=== PATIENT | male | born 1940 ===

== ENCOUNTER 2016-12-22 07:00 | Day surgery (SDC) | payer MEDICARE, MEDICAID ==
[2015-08-22 07:31] VITALS: BMI 30.9
[2016-12-22] MEDS ORDERED: Albuterol 0.083% Inhal Sol (2.5 mg/3 mL) UD INH ONE ×2 (07:07→08:49)
[2016-12-22] MEDS ORDERED: Midazolam 2 MG/2 ML VIAL ONE (07:30)
[2016-12-22] MEDS ORDERED: Propofol 10 mg/ml Inj (20 ML) ONE (07:30)
[2016-12-22] MEDS ORDERED: Lidocaine 2% Jelly (Uro-Jet) ONE (07:50)
[2016-12-22] MEDS ORDERED: Lactated Ringer's 1,000 ML IV ONE ×2 (07:50)
[2016-12-22] MEDS ORDERED: Iohexol 240 (50 ml) ONE (07:50)
[2016-12-22] MEDS ORDERED: cefTRIAXone IV 1 gm in Dextros 50 ML IVPB ONE (07:50)
--- NOTE | 2016-12-22 08:57 | PCM.SURG1 ---
Surgeon's Initial Post Op Note - Surgeon's Notes Surgeon: yves cruz Production Leader: none Pre-Operative Diagnosis: hematuria Operative Findings: bph, retention, cystitis. urethral stricture. filling defect R mid ureter Post-Operative Diagnosis: same Operation Performed: cysto, bilat rtg pyelogram. bladder bx and fulg Specimen/Specimens Removed: urine. bladder bx Estimated Blood Loss: EBL {In ML}: 0 Blood Products Given: N/A Post-Op Condition: Good Date of Surgery/Procedure: 12/22/16 Time of Surgery/Procedure: 08:45
[2016-12-22 11:36] VITALS: RESP 18; TEMP 96.7; O2SAT 100
[2016-12-22 11:39] VITALS: BP 137/75; PULSE 67
--- NOTE | 2016-12-22 13:10 | RAD ---
PROCEDURE: Intraoperative Fluoroscopy. HISTORY: HEMATURIA FINDINGS: Fluoroscopic assistance was provided. 14.1 seconds of fluoroscopy time utilized during this procedure. Radiation dose = 1.63 mGy
--- NOTE | 2016-12-22 17:25 | RAD ---
HISTORY: HEMATURIA COMPARISON: No prior. FINDINGS: BOWEL: Film labeled ocean export account manager is submitted. Normal bowel gas pattern is identified. No masses or abnormal intra-abdominal calcifications are appreciated. BONES: No fracture. 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 OTHER FINDINGS: None. IMPRESSION: No active disease.
--- NOTE | 2016-12-27 06:24 | OP ---
PROCEDURE DATE: 12/22/2016 PREOPERATIVE DIAGNOSIS: Hematuria. POSTOPERATIVE DIAGNOSES: 1. Hematuria. 2. Benign prostatic hypertrophy. 3. Urinary retention. 4. Urethral stricture. 5. Cystitis. 6. Right ureteral filling defect. SURGEON: Dr. Jing Damon. DESCRIPTION OF PROCEDURE: The patient was placed in the lithotomy position, genitalia prepped and draped sterilely. Anesthesia was applied by the anesthesiologist with sedation. Perioperative antibiotics were administered. A 22-Chinese cystoscope sheath was introduced under direct vision. There was noted to be stricture in the mid bulb of the urethra. The ureteral catheter was inserted through the stricture. Dilation was performed with the pass of the cystoscope sheath up to the size 22-Chinese. The remainder of the urethra demonstrate no other stricture. The prostate and bladder were inspected with 30-degree and 70-degree lenses. FINDINGS: There was obstruction of the prostatic urethra. Prostatic urethra was approximately 4 cm at length and occlusive. There was no abnormal mucosa in the prostatic urethra. There was no bladder neck contraction. There was trilobe hypertrophy with a small middle lobe as well. There was moderate bladder tuberculation with mild soleal formation. There was no bladder tumor. There was no bladder stone. Bilateral retrograde ureteropyelogram was performed via cone-tip catheter into his ureteral orifice. The procedure was performed under fluoroscopy control. It was abnormal by the mucosa noted. This appear to be inflammatory. The bladder mucosa was biopsied using cold-cup biopsy forceps. Fulguration was performed with Ball electrode and electrocautery. Occlusive hip retrograde ureteropyelogram was performed. The iodinated contrast was instilled. The ureters and the kidneys were then clenched. There was no evidence of obstruction. There was no hydronephrosis. There was good drainage noted on push drainage. There was a persistent light ureteral filling defect approximately 1 cm at length x approximately 3 cm in width noted adjacent to the lumbar ureter. The bladder was then inspected with 70-degree lens and confirmed the above finding. Hemostasis was complete. The cystoscope and sheath were removed. Olivares catheter was inserted. Bladder drainage was clear. Rectal examination was performed. Prostate was supple and smooth, approximately 30-40 g in size, without fixation, induration, or nodularity. The residuals in the urine was approximately 500 mL. The residual urine within the bladder was approximately 500 mL. The patient tolerated the procedure without complication. Jing Damon MD cc: Jing Damon MD
== END 2016-12-22 12:53 | disposition home or self-care (01) ==
LOC: C.SDS 07:00
PROVIDERS: ATTEND Urology
DX: N30.21 Other chronic cystitis with hematuria (principal); N40.1 Benign prostatic hyperplasia with lower urinary tract symptoms
CPT/HCPCS: 52214; 74000; 76000; 87086; 88305; 94640; C1758; J0696; J7120; Q9966

== ENCOUNTER 2017-12-11 11:22 | Inpatient (IN) | payer MEDICARE, MEDICAID ==
[2017-12-11 11:41] VITALS: BMI 26.9
[2017-12-11] MEDS ORDERED: Albuterol-Ipratrop 3 mg / 0.5 (3 ml) UD IH STA (12:16)
--- NOTE | 2017-12-11 12:17 | C.PDOC ---
History Of Present Illness 76 year old male with PMHx of CHF, GERD, COPD, BPH transfer from [facility] at [facility] for evaluation of intermittent lower abdominal pain, urinary retention developed for past few days. At present time, pt noted tachypnic, SOB. Pt reports, "started after I stopped smoking 7 months ago". Otherwise, pt denies fever, chills, nausea, CP, palpitation, diaphoresis, vomiting, diarrhea, UTI sx. Pt is very poor historian hx of dementia. Time Seen by Provider: 12/11/17 11:24 Chief Complaint (Nursing): Male Genitourinary History Per: Patient, Other ([facility] records) Onset/Duration Of Symptoms: Days Current Symptoms Are (Timing): Still Present Associated Symptoms: Urinary Symptoms. denies: Fever, Chills, Nausea, Vomiting , Diarrhea Past Medical History Reviewed: Historical Data, Nursing Documentation, Vital Signs Vital Signs: Last Vital Signs Temp 98.4 F 12/13/17 15:57 Pulse 66 12/13/17 15:57 Resp 20 12/13/17 15:57 BP 107/71 12/13/17 15:57 Pulse Ox 95 12/13/17 15:57 - Medical History PMH: CHF (DIASTOLIC CHF), COPD, Diverticulitis, HTN, Peripheral Edema, Pneumonia (BRONCHOPNEUMONIA UNSPECIFIED ORGANISM(11/04/15)) Denies: Chronic Kidney Disease Surgical History: No Surg Hx Family History: States: No Known Family Hx - Social History Hx Tobacco Use: Yes (stopped 7 months ago ) Hx Alcohol Use: No Hx Substance Use: No Review Of Systems Except As Marked, All Systems Reviewed And Found Negative. Constitutional: Negative for: Fever, Chills Cardiovascular: Negative for: Chest Pain, Palpitations Gastrointestinal: Positive for: Abdominal Pain (Lower abdomen ). Negative for: Nausea, Vomiting, Diarrhea Genitourinary: Positive for: Hematuria, Other (Urinary retention ). Negative for: Dysuria, Frequency Physical Exam - Physical Exam Appears: Well, Non-toxic, Other (mild resp. distress) Skin: Normal Color, Warm, Dry, No Rash, No Ecchymosis Head: Normacephalic Eye(s): bilateral: PERRL Nose: No Flaring, No Discharge Oral Mucosa: Moist, No Drooling Throat: No Drooling Neck: Trachea Midline, Supple Chest: Symmetrical Cardiovascular: Rhythm Regular, No Murmur, No JVD Respiratory: Decreased Breath Sounds (slight bibasilar, BS equal B/L), Accessory Muscle Use (abd), Wheezing (Bibasilar respisratory wheezing ) Gastrointestinal/Abdominal: Soft, Tenderness (mild suprapubic), No Distention, No Guarding, No Rebound Back: No CVA Tenderness Extremity: Normal ROM, No Pedal Edema Neurological/Psych: Oriented x3, Normal Speech ED Course And Treatment - Laboratory Results Result Diagrams: 12/11/17 12:28 12/11/17 12:28 Lab Interpretation: Abnormal ECG Interpretation: Normal Interpretation Of ECG: SR@68/min, NAD, no acute T wave or ST-T changes O2 Sat by Pulse Oximetry: 95 (Nasal Cannula ) Pulse Ox Interpretation: Normal (As per patient's condition) - Radiology CXR: Interpreted by Me, Read By Radiologist CXR Interpretation: Yes: No Acute Disease Progress Note: As per RN, bladder scan 550ml residual urine. Olivares cath ordered. Blood owrk review, abnormal chemistry, dehydration. Troponin I, BNP _ normal study. CXR, EKG- no acute changes compare to previous study. case discussed with who evaluated pt at bedside. CT w/o IV contrast recommend with Olivares insertion, admisson. Pt received tx for COPD, reports mild improvement n SOB. UA (+) UTI. Abx initaited empirically, cx- pending. On re-eval, pt remained stable, afebrile, hemodynamically stable. Case discussed with and admission arranged. Disposition - Disposition Disposition: HOSPITALIZED Disposition Time: 13:16 Condition: STABLE - Clinical Impression Clinical Impression: Hematuria, Urinary retention, UTI (urinary tract infection), COPD (chronic obstructive pulmonary disease) - PA / HELPDESK TECHNICIAN / Resident Statement MD/DO has reviewed & agrees with the documentation as recorded. - Scribe Statement The provider has reviewed the documentation as recorded by the Nancyibsarah Rosario All medical record entries made by the Nancyibsarah were at my direction and personally dictated by me. I have reviewed the chart and agree that the record accurately reflects my personal performance of the history, physical exam, medical decision making, and the department course for this patient. I have also personally directed, reviewed, and agree with the discharge instructions and disposition.
[2017-12-11 12:32] LABS: BASO % 0.6 % (0.0-2.0); EOS # 0.3 K/uL (0.0-0.7); EOS % 3.6 % (0.0-4.0); HEMOGLOBIN 13.2 g/dL (12.0-18.0); LYMPH # 2.9 K/uL (1.0-4.3); MEAN CELL VOLUME 83.3 fL (80.0-94.0); MEAN CORPUSCULAR HEMOGLOBIN 25.9 pg (27.0-31.0); MEAN CORPUSCULAR HGB CONC 31.1 g/dL (33.0-37.0); MEAN PLATELET VOLUME 7.2 fL (7.2-11.7); MONO # 0.7 K/uL (0.0-0.8); MONO % 9.7 % (0.0-10.0); NEUT # 3.4 K/uL (1.8-7.0); NEUT % 46.1 % (50.0-75.0); NRBC % 0.1 % (0.0-2.0); RBC 5.1 Mil/uL (4.40-5.90); RED CELL DISTRIBUTION WIDTH 16.5 % (11.5-14.5); WHITE BLOOD COUNT 7.3 K/uL (4.8-10.8)
[2017-12-11 12:43] LABS: INR 1.1; PROTHROMBIN TIME 12.3 SECONDS (9.7-12.2)
[2017-12-11] MEDS ORDERED: Albuterol-Ipratrop 3 mg / 0.5 (3 ml) UD ONE ×2 (12:43→12:51)
--- NOTE | 2017-12-11 13:03 | RAD ---
Date of service: 12/11/2017 PROCEDURE: CHEST RADIOGRAPH, 1 VIEW HISTORY: SOB COMPARISON: None available. FINDINGS: LUNGS: The lungs are well inflated and clear. PLEURA: No pneumothorax or pleural fluid seen. CARDIOVASCULAR: Normal. OSSEOUS STRUCTURES: No significant abnormalities. VISUALIZED UPPER ABDOMEN: Normal. OTHER FINDINGS: None. IMPRESSION: No active pulmonary disease.
[2017-12-11 13:05] LABS: SQUAMOUS EPITHIAL 17 /hpf (0-5); URINE AMORPHOUS SEDIMENT FEW /ul (<OCC); URINE BACTERIA MOD (<OCC); URINE BILIRUBIN NEGATIVE (NEGATIVE); URINE BLOOD 2+ (NEGATIVE); URINE CLARITY Turbid (Clear); URINE COLOR Yellow (YELLOW); URINE GLUCOSE (UA) NORMAL (Normal); URINE LEUKOCYTE ESTERASE 1+ Leu/uL (Negative); URINE PROTEIN 2+ mg/dL (NEGATIVE)
[2017-12-11 13:06] LABS: B-TYPE NATRIURETIC PEPTIDE 308 pg/mL (0-900)
[2017-12-11 13:08] LABS: ALB/GLOB RATIO 0.9 (1.0-2.1); ALBUMIN 3.7 g/dL (3.5-5.0); ALT/SGPT 19 U/L (21-72); AST/SGOT 30 U/L (17-59); BLOOD UREA NITROGEN 23 mg/dL (9-20); CALCIUM 8.7 mg/dl (8.6-10.4); GFR AFRICAN-AMERICAN > 60; GFR NON-AFRICAN AMERICAN > 60
[2017-12-11] MEDS ORDERED: Sodium Chloride 0.9% 1,000 ML IV ONE (13:15)
[2017-12-11] MEDS ORDERED: Sodium Chloride 0.9% 1,000 ML ONE (13:26)
[2017-12-11] MEDS ORDERED: cefTRIAXone IV 1 gm in Dextros 50 ML IVPB ONE (13:27)
[2017-12-11] MEDS ORDERED: Iohexol 350mg/ml 100 ML ONE (14:38)
--- NOTE | 2017-12-11 17:39 | CT ---
Date of service: 12/11/2017 PROCEDURE: CT Abdomen and Pelvis with and without intravenous contrast HISTORY: urinary retention, hematuria COMPARISON: None. TECHNIQUE: Axial images of the abdomen were obtained in the pre contrast, portal venous and delayed phases of enhancement. Coronal and sagittal reformats were generated. Contrast dose: 100 mL Visipaque 320 Radiation dose: Total exam DLP = 2538.87 mGy-cm. This CT exam was performed using one or more of the following dose reduction techniques: Automated exposure control, adjustment of the mA and/or kV according to patient size, and/or use of iterative reconstruction technique. FINDINGS: LOWER THORAX: Right lower lobe infiltrate. Minimal left lower lobe subsegmental atelectasis. LIVER: Unremarkable. No gross lesion or ductal dilatation. GALLBLADDER AND BILE DUCTS: Unremarkable. PANCREAS: Unremarkable. No gross lesion or ductal dilatation. SPLEEN: Unremarkable. ADRENALS: Unremarkable. No mass. KIDNEYS AND URETERS: Pedunculated left upper pole renal cortical cyst, 4.1 cm diameter. Minimal curvilinear mural calcification associated with this cyst. Right lower pole cortical cyst, 12 mm. No renal calculus. No hydronephrosis. Urographic phase images demonstrate no filling defect within the collecting system. The the pelvicaliceal system is in normal in morphology. The ureters are unremarkable in appearance. VASCULATURE: Unremarkable. No aortic aneurysm. BOWEL: Diverticulosis of the cecum/ascending colon. No evidence of diverticulitis. No bowel obstruction. APPENDIX: Normal appendix. PERITONEUM: Unremarkable. No free fluid. No free air. LYMPH NODES: Unremarkable. No enlarged lymph nodes. BLADDER: Large diverticulum arising from the left superior bladder. This contains air and fluid as well as calcification and debris. The bladder wall is grossly irregularly thickened. A Olivares catheter is seen within the bladder lumen. There are multiple fluid density structures about the bladder particularly along the right side of the bladder, possibly diverticulae. There is infiltration of the perivesical fat suggesting possible cystitis. Irregular thickening of the bladder wall concerning for neoplasm. REPRODUCTIVE: Unremarkable prostate BONES: Mild compression deformity of the L1 vertebral body, age indeterminate. OTHER FINDINGS: None. IMPRESSION: Large left-sided bladder diverticulum with fluid, gas, calcification and debris. Irregular marked thickening of bladder wall with multiple low-density structures along the right lateral aspect of the wall of uncertain significance. Possible diverticulae. The irregular extensive mural thickening is suspicious for bladder neoplasm. Infiltration of perivesical fat raises concern for cystitis. Right lower lobe infiltrate noted. Concerning for pneumonia. Additional minor findings as above.
[2017-12-11] MEDS: Zinc Oxide Topical 30 gm Tube TOP SCH (19:12)
--- NOTE | 2017-12-11 19:30 | CP.PCM.HP ---
Past Patient History - Past Medical History & Family History Past Medical History?: Yes - Past Social History Smoking Status: Former Smoker - CARDIAC Hx Congestive Heart Failure: Yes (DIASTOLIC CHF) Hx Hypertension: Yes Hx Peripheral Edema: Yes - PULMONARY Hx Chronic Obstructive Pulmonary Disease (COPD): Yes Hx Pneumonia: Yes (BRONCHOPNEUMONIA UNSPECIFIED ORGANISM(11/04/15)) - NEUROLOGICAL Hx Neurological Disorder: Yes Other/Comment: CERVICAL CORD COMPRESSION. CERVICAL STENOSIS. NEUROPATHY - HEENT Hx HEENT Problems: No - RENAL Hx Chronic Kidney Disease: No - ENDOCRINE/METABOLIC Hx Endocrine Disorders: No - HEMATOLOGICAL/ONCOLOGICAL Hx Blood Disorders: No - INTEGUMENTARY Hx Dermatological Problems: Yes Other/Comment: LEFT LOWER EXTREMITY CELLULITIS - MUSCULOSKELETAL/RHEUMATOLOGICAL Hx Musculoskeletal Disorders: Yes Hx Back Pain: Yes Hx Falls: Yes Hx Osteoarthritis: Yes Other/Comment: HX: CERVICAL CORD COMPRESSION. HX: CERVICAL STENOSIS. 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, THORACIC REGION - GASTROINTESTINAL Hx Diverticulitis: Yes - GENITOURINARY/GYNECOLOGICAL Hx Genitourinary Disorders: Yes Hx Bladder Stone: Yes Hx Hematuria: Yes Hx Urinary Tract Infection: Yes - PSYCHIATRIC Hx Substance Use: No - SURGICAL HISTORY Hx Surgeries: No Other/Comment: HX: FLEXIBLE CYSTOSCOPY(08/28/15) - ANESTHESIA Hx Anesthesia: Yes Hx Anesthesia Reactions: No Meds Allergies/Adverse Reactions: Allergies Allergy/AdvReac Type Severity Reaction Status Date / Time No Known Allergies Allergy Verified 08/22/15 07:30 Physical Exam - Constitutional Appears: Well - Head Exam Head Exam: ATRAUMATIC, NORMAL INSPECTION, NORMOCEPHALIC - Eye Exam Eye Exam: EOMI, Normal appearance, PERRL Pupil Exam: NORMAL ACCOMODATION, PERRL - ENT Exam ENT Exam: Mucous Membranes Moist, Normal Exam - Neck Exam Neck exam: Positive for: Normal Inspection - Respiratory Exam Respiratory Exam: Decreased Breath Sounds - Cardiovascular Exam Cardiovascular Exam: REGULAR RHYTHM, +S1, +S2 - GI/Abdominal Exam GI & Abdominal Exam: Diminished Bowel Sounds, Soft - Rectal Exam Rectal Exam: Deferred Results - Vital Signs Recent Vital Signs: Last Vital Signs Temp 98.0 F 12/11/17 16:23 Pulse 72 12/11/17 16:23 Resp 20 12/11/17 16:23 BP 104/68 12/11/17 16:23 Pulse Ox 95 12/11/17 16:59 - Labs Result Diagrams: 12/11/17 12:28 12/11/17 12:28 Labs: Laboratory Results - last 24 hr 12/11/17 12/11/17 12/11/17 12:28 12:28 12:28 WBC 7.3 RBC 5.10 Hgb 13.2 Hct 42.5 MCV 83.3 MCH 25.9 L MCHC 31.1 L RDW 16.5 H Plt Count 245 MPV 7.2 Neut % (Auto) 46.1 L Lymph % (Auto) 40.0 [place] % (Auto) 9.7 Eos % (Auto) 3.6 Baso % (Auto) 0.6 Neut # (Auto) 3.4 Lymph # (Auto) 2.9 [place] # (Auto) 0.7 Eos # (Auto) 0.3 Baso # (Auto) 0.0 PT 12.3 H INR 1.1 APTT 35 H Sodium 137 Potassium 5.0 Chloride 89 L Carbon Dioxide 38 H Anion Gap 15 BUN 23 H Creatinine 0.7 L Est GFR ( Amer) > 60 Est GFR (Non-Af Amer) > 60 Random Glucose 129 H Calcium 8.7 Total Bilirubin 0.7 AST 30 ALT 19 L Alkaline Phosphatase 86 Troponin I < 0.0120 NT-Pro-B Natriuret Pep 308 Total Protein 8.0 Albumin 3.7 Globulin 4.3 H Albumin/Globulin Ratio 0.9 L Urine Color Urine Clarity Urine pH Ur Specific [place] Urine Protein Urine Glucose (UA) Urine Ketones Urine Blood Urine Nitrate Urine Bilirubin Urine Urobilinogen Ur Leukocyte Esterase Urine WBC (Auto) Urine RBC (Auto) Ur Squamous Epith Cells Amorphous Sediment Urine Bacteria 12/11/17 12:29 WBC RBC Hgb Hct MCV MCH MCHC RDW Plt Count MPV Neut % (Auto) Lymph % (Auto) [place] % (Auto) Eos % (Auto) Baso % (Auto) Neut # (Auto) Lymph # (Auto) [place] # (Auto) Eos # (Auto) Baso # (Auto) PT INR APTT Sodium Potassium Chloride Carbon Dioxide Anion Gap BUN Creatinine Est GFR ( Amer) Est GFR (Non-Af Amer) Random Glucose Calcium Total Bilirubin AST ALT Alkaline Phosphatase Troponin I NT-Pro-B Natriuret Pep Total Protein Albumin Globulin Albumin/Globulin Ratio Urine Color Yellow Urine Clarity Turbid Urine pH 6.0 Ur Specific [place] 1.013 Urine Protein 2+ H Urine Glucose (UA) Normal Urine Ketones Negative Urine Blood 2+ H Urine Nitrate Negative Urine Bilirubin Negative Urine Urobilinogen 2.0 Ur Leukocyte Esterase 1+ H Urine WBC (Auto) 1204 H Urine RBC (Auto) 72 H Ur Squamous Epith Cells 17 H Amorphous Sediment Few H Urine Bacteria Mod H
[2017-12-11] MEDS: Albuterol-Ipratrop 3 mg / 0.5 (3 ml) UD INH SCH (20:48)
[2017-12-12] MEDS: Albuterol-Ipratrop 3 mg / 0.5 (3 ml) UD INH SCH ×4 (01:39→19:37)
[2017-12-12] MEDS: Metoprolol Succinate 50 mg XL Tab PO SCH (10:04)
[2017-12-12] MEDS: Potassium Chloride 10 mEq ER Tab PO SCH (10:04)
[2017-12-12] MEDS: Zinc Oxide Topical 30 gm Tube TOP SCH (10:05)
[2017-12-12] MEDS: Azithromycin 500 MG in Sodium Chloride 0.9% 250 ML IVPB SCH (10:06)
[2017-12-12] MEDS: Magnesium Hydroxide Susp 30 ml UD PO SCH (10:06)
--- NOTE | 2017-12-12 12:47 | CP.PCM.PN ---
Subjective - Date & Time of Evaluation Date of Evaluation: 12/12/17 Time of Evaluation: 07:40 - Subjective Subjective: clinically same Objective - Vital Signs/Intake and Output Vital Signs (last 24 hours): Temp Pulse Resp BP Pulse Ox 98.2 F 71 20 101/50 L 96 12/12/17 08:00 12/12/17 08:00 12/12/17 08:00 12/12/17 08:00 12/12/17 08:00 Intake and Output: 12/12/17 12/12/17 06:59 18:59 Intake Total 1300 Output Total 1000 300 Balance 300 -300 - Medications Medications: Current Medications Albuterol/Ipratropium (Duoneb 3 Mg/0.5 Mg (3 Ml) Ud) 3 ml INH RQ6 [facility] Last Admin: 12/12/17 07:55 Dose: 3 ml Aspirin (Aspirin Chewable) 81 mg PO DAILY [facility] Last Admin: 12/12/17 10:04 Dose: 81 mg Baclofen (Lioresal) 20 mg PO TID [facility] Last Admin: 12/12/17 10:05 Dose: 20 mg Bisacodyl (Dulcolax) 10 mg RC DAILY PRN PRN Reason: Constipation Diphenhydramine HCl (Benadryl) 25 mg PO Q8 [facility] Last Admin: 12/12/17 05:49 Dose: Not Given Famotidine (Pepcid) 20 mg PO BID [facility] Last Admin: 12/12/17 10:05 Dose: 20 mg Furosemide (Lasix) 40 mg IVP DAILY [facility] Last Admin: 12/12/17 10:05 Dose: Not Given Ceftriaxone Sodium 1 gm/ (Sodium Chloride) 100 mls @ 100 mls/hr IVPB DAILY [facility] PRN Reason: Protocol Last Admin: 12/12/17 10:06 Dose: 100 mls/hr Azithromycin 500 mg/ Sodium (Chloride) 250 mls @ 250 mls/hr IVPB DAILY [facility] PRN Reason: Protocol Last Admin: 12/12/17 10:06 Dose: 250 mls/hr Magnesium Hydroxide (Milk Of Magnesia) 30 ml PO DAILY [facility] Last Admin: 12/12/17 10:06 Dose: Not Given Metoprolol Succinate (Toprol Xl) 50 mg PO DAILY [facility] Last Admin: 12/12/17 10:04 Dose: 50 mg Petrolatum (Desitin Original) 0 gm TOP DAILY [facility] Last Admin: 12/12/17 10:05 Dose: 1 applic Potassium Chloride (Klor-Con 10) 10 meq PO DAILY [facility] Last Admin: 12/12/17 10:04 Dose: 10 meq - Labs Labs: 12/11/17 12:28 12/11/17 12:28 PT 12.3 SECONDS (9.7-12.2) H 12/11/17 12:28 INR 1.1 12/11/17 12:28 APTT 35 SECONDS (21-34) H 12/11/17 12:28 - Constitutional Appears: Well - Head Exam Head Exam: ATRAUMATIC, NORMAL INSPECTION, NORMOCEPHALIC - Eye Exam Eye Exam: EOMI, Normal appearance, PERRL Pupil Exam: NORMAL ACCOMODATION, PERRL - ENT Exam ENT Exam: Mucous Membranes Moist, Normal Exam - Neck Exam Neck Exam: Full ROM, Normal Inspection. absent: Lymphadenopathy - Respiratory Exam Respiratory Exam: Decreased Breath Sounds - Cardiovascular Exam Cardiovascular Exam: REGULAR RHYTHM, +S1, +S2 - GI/Abdominal Exam GI & Abdominal Exam: Soft, Diminished Bowel Sounds - Rectal Exam Rectal Exam: Deferred
--- NOTE | 2017-12-12 15:07 | CP.PCM.CON ---
History of Present Illness - History of Present Illness History of Present Illness: CHART REVIEWED, PT SEEN AND EXAMINED. 76 YO HISP MALE WITH A HX COPD, CHF, GERD, BPH, HTN, TRANS FROM [place] 12/11/17 WITH INCREASED MILD SOB AT REST X FEW DAYS, WITH LOWER ABDOM DISCOMFORT., NO N/V. NO COUGH., NO CP. QUIT SMOKING FEW MONTHS AGO. Review of Systems - Review of Systems All systems: reviewed and no additional remarkable complaints except - Constitutional Constitutional: Weakness - EENT Eyes: absent: Change in Vision Ears: absent: Dizziness Nose/Mouth/Throat: absent: Nasal Congestion - Cardiovascular Cardiovascular: absent: Chest Pain - Respiratory Respiratory: Dyspnea on Exertion. absent: Excessive Mucous Production - Gastrointestinal Gastrointestinal: absent: Nausea, Vomiting - Genitourinary Genitourinary: Change in Urinary Stream, Difficulty Urinating - Integumentary Integumentary: absent: Rash - Neurological Neurological: absent: Syncope - Psychiatric Psychiatric: absent: Anxiety - Endocrine Endocrine: absent: Palpitations - Hematologic/Lymphatic Hematologic: absent: Easy Bruising Past Patient History - Past Medical History & Family History Past Medical History?: Yes Past Family History: Reviewed and not pertinent - Past Social History Smoking Status: Former Smoker Chewing Tobacco Use: No Cigar Use: No Alcohol: None Drugs: Denies - CARDIAC Hx Congestive Heart Failure: Yes (DIASTOLIC CHF) Hx Hypertension: Yes Hx Peripheral Edema: Yes - PULMONARY Hx Chronic Obstructive Pulmonary Disease (COPD): Yes Hx Pneumonia: Yes (BRONCHOPNEUMONIA UNSPECIFIED ORGANISM(11/04/15)) - NEUROLOGICAL Hx Neurological Disorder: Yes Other/Comment: CERVICAL CORD COMPRESSION. CERVICAL STENOSIS. NEUROPATHY - HEENT Hx HEENT Problems: No - RENAL Hx Chronic Kidney Disease: No - ENDOCRINE/METABOLIC Hx Endocrine Disorders: No - HEMATOLOGICAL/ONCOLOGICAL Hx Blood Disorders: No - INTEGUMENTARY Hx Dermatological Problems: Yes Other/Comment: LEFT LOWER EXTREMITY CELLULITIS - MUSCULOSKELETAL/RHEUMATOLOGICAL Hx Musculoskeletal Disorders: Yes Hx Back Pain: Yes Hx Falls: Yes Hx Osteoarthritis: Yes Other/Comment: HX: CERVICAL CORD COMPRESSION. HX: CERVICAL STENOSIS. 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, THORACIC REGION - GASTROINTESTINAL Hx Diverticulitis: Yes - GENITOURINARY/GYNECOLOGICAL Hx Genitourinary Disorders: Yes Hx Bladder Stone: Yes Hx Hematuria: Yes Hx Urinary Tract Infection: Yes - PSYCHIATRIC Hx Substance Use: No - SURGICAL HISTORY Hx Surgeries: No Other/Comment: HX: FLEXIBLE CYSTOSCOPY(08/28/15) - ANESTHESIA Hx Anesthesia: Yes Hx Anesthesia Reactions: No Meds Allergies/Adverse Reactions: Allergies Allergy/AdvReac Type Severity Reaction Status Date / Time No Known Allergies Allergy Verified 08/22/15 07:30 - Medications Medications: Current Medications Albuterol/Ipratropium (Duoneb 3 Mg/0.5 Mg (3 Ml) Ud) 3 ml INH RQ6 [facility] Last Admin: 12/12/17 13:11 Dose: Not Given Aspirin (Aspirin Chewable) 81 mg PO DAILY [facility] Last Admin: 12/12/17 10:04 Dose: 81 mg Baclofen (Lioresal) 20 mg PO TID [facility] Last Admin: 12/12/17 13:18 Dose: Not Given Bisacodyl (Dulcolax) 10 mg RC DAILY PRN PRN Reason: Constipation Diphenhydramine HCl (Benadryl) 25 mg PO Q8 [facility] Last Admin: 12/12/17 13:18 Dose: 25 mg Famotidine (Pepcid) 20 mg PO BID [facility] Last Admin: 12/12/17 10:05 Dose: 20 mg Furosemide (Lasix) 40 mg IVP DAILY [facility] Last Admin: 12/12/17 10:05 Dose: Not Given Ceftriaxone Sodium 1 gm/ (Sodium Chloride) 100 mls @ 100 mls/hr IVPB DAILY [facility] PRN Reason: Protocol Last Admin: 12/12/17 10:06 Dose: 100 mls/hr Azithromycin 500 mg/ Sodium (Chloride) 250 mls @ 250 mls/hr IVPB DAILY [facility] PRN Reason: Protocol Last Admin: 12/12/17 10:06 Dose: 250 mls/hr Magnesium Hydroxide (Milk Of Magnesia) 30 ml PO DAILY [facility] Last Admin: 12/12/17 10:06 Dose: Not Given Metoprolol Succinate (Toprol Xl) 50 mg PO DAILY [facility] Last Admin: 12/12/17 10:04 Dose: 50 mg Petrolatum (Desitin Original) 0 gm TOP DAILY [facility] Last Admin: 12/12/17 10:05 Dose: 1 applic Potassium Chloride (Klor-Con 10) 10 meq PO DAILY [facility] Last Admin: 12/12/17 10:04 Dose: 10 meq Physical Exam - Constitutional Appears: No Acute Distress, Chronically Ill - Head Exam Head Exam: ATRAUMATIC, NORMOCEPHALIC - Eye Exam Eye Exam: EOMI, Normal appearance - ENT Exam ENT Exam: Mucous Membranes Moist - Neck Exam Neck exam: Positive for: Normal Inspection - Respiratory Exam Respiratory Exam: Decreased Breath Sounds. absent: Wheezes, Respiratory Distress - Cardiovascular Exam Cardiovascular Exam: RRR, +S1, +S2 - GI/Abdominal Exam GI & Abdominal Exam: Soft. absent: Tenderness - Rectal Exam Rectal Exam: Deferred - Extremities Exam Extremities exam: Negative for: calf tenderness Additional comments: LE CHRONIC CHANGES BILAT. - Back Exam Back exam: absent: CVA tenderness (L), CVA tenderness (R) - Neurological Exam Neurological exam: Alert, CN II-XII Intact, Oriented x3 - Psychiatric Exam Psychiatric exam: Normal Mood Results - Vital Signs Recent Vital Signs: Last Vital Signs Temp 98.2 F 12/12/17 08:00 Pulse 71 12/12/17 08:00 Resp 20 12/12/17 08:00 BP 101/50 L 12/12/17 08:00 Pulse Ox 96 12/12/17 08:00 - Labs Result Diagrams: 12/11/17 12:28 12/11/17 12:28 Assessment & Plan (1) Hypertension Status: Acute (2) Congestive heart failure (CHF) Status: Acute (3) GERD (gastroesophageal reflux disease) Status: Acute (4) BPH (benign prostatic hyperplasia) Status: Acute (5) Pneumonia Status: Acute (6) COPD (chronic obstructive pulmonary disease) Status: Acute (7) UTI (urinary tract infection) Status: Acute (8) Urinary retention Status: Acute - Assessment and Plan (Free Text) Assessment: 76 YO MALE WITH A HX MULT MED PROBS ADM WITH URINARY RETENTION, MILD DYSPNEA, COPD EXAC, ?CHF, FOR CARDIO EVAL. CXR REVIEWED. CONT PULM TOILET., NEB BD., MONITOR O2 SAT. CT ABD REVIEWED. +RLL PNA NOTED, CONT AB PENDING CULT. EVAL IN PROGRESS ?BLADDER LESION NOTED. +ALMANZAR IN PLACE. GI/DVT PROPHYLAXIS., PFT'S WHEN STABLE. PROG GUARDED., DISCUSSED WITH STAFF AT LENGTH.
[2017-12-13] MEDS: Albuterol-Ipratrop 3 mg / 0.5 (3 ml) UD INH SCH ×4 (01:46→21:15)
--- NOTE | 2017-12-13 04:59 | CON ---
Copied To: Jing Damon MD Attending MD: Jing Damon MD DATE: 12/12/2017 UROLOGY CONSULTATION Urology consultation is requested by Dr. Faustino Holt. Urology consultation is filled by Dr. Jing Damon. REASON FOR CONSULTATION: History of hematuria. HISTORY OF PRESENT ILLNESS: The patient is a 76-year-old male with hematuria. The patient is in otherwise fair health. The patient was previously hospitalized at [facility] last year and thereafter at [facility]. The patient was found to have cystitis on previous cystoscopy. He also was found to have prostatic hypertrophy. He also was found to have a filling defect within his right ureter. The patient presented to the emergency room. The patient reports that he voids with fair urinary stream and good control. He was found to have retention, and a Olivares catheter was inserted during the visit to the ER. The patient was also found to have urinary tract infection, see attached lab reports. The patient reports no recent hematuria. He also has a history of bladder diverticulum. He has no history of urolithiasis. There has been no recent fever or rigors. The patient reports that he voids with fair urinary stream. He has urinary frequency. The patient has had no recent fever or rigors. The patient has fair appetite. The patient reports that he has received physical therapy. He has weakness and has not been able to walk. The patient also has history of CHF. The patient has history of COPD. The patient has history of elevated PSA. PAST MEDICAL HISTORY: Includes hypertension. PAST SURGICAL HISTORY: Includes history of cervical laminectomy. PHYSICAL EXAMINATION: GENERAL: The patient is a well-developed, well-nourished elderly male, appearing his stated age. The patient is oriented to person, place, and hospital. ABDOMEN: Soft, nontender, nondistended. No mass or organomegaly. BACK: No CVA tenderness. GENITALIA: Without inflammation. The urine is clear via the Olivares catheter. The urinalysis reveals pyuria and microhematuria. IMPRESSION: A 76-year-old male with history of a filling defect in the right ureter. History of cystitis. Now with incomplete emptying. Possible urinary retention. Possible urinary tract infection. RECOMMENDATIONS AND PLAN: Indwelling catheter. Trial of voiding to follow. Tamsulosin. Please obtain serum PSA. Antibiotic therapy. Trial of voiding to follow. Possible cystoscopy and retrograde pyelogram. Further therapy to follow according to the patient's clinical course. Thank you for recommending the patient for Urology consultation. [place] MD Nelson cc: Faustino Holt MD
[2017-12-13] MEDS: Magnesium Hydroxide Susp 30 ml UD PO SCH (09:57)
[2017-12-13] MEDS: Potassium Chloride 10 mEq ER Tab PO SCH (09:58)
[2017-12-13] MEDS: Metoprolol Succinate 50 mg XL Tab PO SCH (09:58)
[2017-12-13] MEDS: Zinc Oxide Topical 30 gm Tube TOP SCH (10:00)
[2017-12-13] MEDS: Azithromycin 500 MG in Sodium Chloride 0.9% 250 ML IVPB SCH (11:01)
--- NOTE | 2017-12-13 13:18 | CP.PCM.PN ---
Subjective - Date & Time of Evaluation Date of Evaluation: 12/13/17 Time of Evaluation: 13:15 - Subjective Subjective: PT ALERT, NO SOB. OCC COUGH NO SPUTUM. ROS ; OTHERWISE NEG. Objective - Vital Signs/Intake and Output Vital Signs (last 24 hours): Temp Pulse Resp BP Pulse Ox 97.0 F L 62 20 127/69 95 12/13/17 08:00 12/13/17 08:00 12/13/17 08:00 12/13/17 09:57 12/13/17 08:00 Intake and Output: 12/13/17 12/13/17 06:59 18:59 Output Total 400 Balance -400 - Medications Medications: Current Medications Albuterol/Ipratropium (Duoneb 3 Mg/0.5 Mg (3 Ml) Ud) 3 ml INH RQ6 [facility] Last Admin: 12/13/17 07:40 Dose: Not Given Aspirin (Aspirin Chewable) 81 mg PO DAILY [facility] Last Admin: 12/13/17 10:10 Dose: Not Given Baclofen (Lioresal) 20 mg PO TID [facility] Last Admin: 12/13/17 09:59 Dose: 20 mg Bisacodyl (Dulcolax) 10 mg RC DAILY PRN PRN Reason: Constipation Diphenhydramine HCl (Benadryl) 25 mg PO Q8 [facility] Last Admin: 12/13/17 05:44 Dose: Not Given Famotidine (Pepcid) 20 mg PO BID [facility] Last Admin: 12/13/17 09:59 Dose: 20 mg Furosemide (Lasix) 40 mg IVP DAILY [facility] Last Admin: 12/13/17 09:57 Dose: 40 mg Ceftriaxone Sodium 1 gm/ (Sodium Chloride) 100 mls @ 100 mls/hr IVPB DAILY [facility] PRN Reason: Protocol Last Admin: 12/13/17 10:01 Dose: 100 mls/hr Azithromycin 500 mg/ Sodium (Chloride) 250 mls @ 250 mls/hr IVPB DAILY [facility] PRN Reason: Protocol Last Admin: 12/13/17 11:01 Dose: 250 mls/hr Magnesium Hydroxide (Milk Of Magnesia) 30 ml PO DAILY [facility] Last Admin: 12/13/17 09:57 Dose: 30 ml Metoprolol Succinate (Toprol Xl) 50 mg PO DAILY [facility] Last Admin: 12/13/17 09:58 Dose: 50 mg Petrolatum (Desitin Original) 0 gm TOP DAILY [facility] Last Admin: 12/13/17 10:00 Dose: 1 applic Potassium Chloride (Klor-Con 10) 10 meq PO DAILY [facility] Last Admin: 12/13/17 09:58 Dose: 10 meq - Labs Labs: 12/11/17 12:28 12/11/17 12:28 PT 12.3 SECONDS (9.7-12.2) H 12/11/17 12:28 INR 1.1 12/11/17 12:28 APTT 35 SECONDS (21-34) H 12/11/17 12:28 - Constitutional Appears: No Acute Distress, Chronically Ill - Head Exam Head Exam: ATRAUMATIC, NORMOCEPHALIC - Eye Exam Eye Exam: EOMI, Normal appearance - ENT Exam ENT Exam: Mucous Membranes Moist - Neck Exam Neck Exam: Normal Inspection - Respiratory Exam Respiratory Exam: Decreased Breath Sounds. absent: Accessory Muscle Use, Wheezes, Respiratory Distress - Cardiovascular Exam Cardiovascular Exam: RRR, +S1, +S2 - GI/Abdominal Exam GI & Abdominal Exam: Soft. absent: Tenderness - Rectal Exam Rectal Exam: Deferred - Extremities Exam Extremities Exam: absent: Joint Swelling, Pedal Edema - Back Exam Back Exam: absent: rash noted - Neurological Exam Neurological Exam: Alert, Awake, CN II-XII Intact, Oriented x3 - Psychiatric Exam Psychiatric exam: Normal Mood Assessment and Plan (1) Hypertension Status: Acute (2) Congestive heart failure (CHF) Status: Acute (3) GERD (gastroesophageal reflux disease) Status: Acute (4) BPH (benign prostatic hyperplasia) Status: Acute (5) Pneumonia Status: Acute (6) COPD (chronic obstructive pulmonary disease) Status: Acute (7) UTI (urinary tract infection) Status: Acute (8) Urinary retention Status: Acute - Assessment and Plan (Free Text) Assessment: RESP STATUS COMFORTABLE AT REST, CONT EMPIRIC AB. CONT PULM TOILET. CXR REVIEWED. W/U IN PROGRESS. DISCUSSED WITH STAFF.
--- NOTE | 2017-12-13 13:26 | CP.PCM.PN ---
Subjective - Date & Time of Evaluation Date of Evaluation: 12/13/17 Time of Evaluation: 07:40 - Subjective Subjective: clinically same Objective - Vital Signs/Intake and Output Vital Signs (last 24 hours): Temp Pulse Resp BP Pulse Ox 97.0 F L 62 20 127/69 95 12/13/17 08:00 12/13/17 08:00 12/13/17 08:00 12/13/17 09:57 12/13/17 08:00 Intake and Output: 12/13/17 12/13/17 06:59 18:59 Output Total 400 Balance -400 - Medications Medications: Current Medications Albuterol/Ipratropium (Duoneb 3 Mg/0.5 Mg (3 Ml) Ud) 3 ml INH RQ6 [facility] Last Admin: 12/13/17 13:18 Dose: Not Given Aspirin (Aspirin Chewable) 81 mg PO DAILY [facility] Last Admin: 12/13/17 10:10 Dose: Not Given Baclofen (Lioresal) 20 mg PO TID [facility] Last Admin: 12/13/17 09:59 Dose: 20 mg Bisacodyl (Dulcolax) 10 mg RC DAILY PRN PRN Reason: Constipation Diphenhydramine HCl (Benadryl) 25 mg PO Q8 [facility] Last Admin: 12/13/17 05:44 Dose: Not Given Famotidine (Pepcid) 20 mg PO BID [facility] Last Admin: 12/13/17 09:59 Dose: 20 mg Furosemide (Lasix) 40 mg IVP DAILY [facility] Last Admin: 12/13/17 09:57 Dose: 40 mg Ceftriaxone Sodium 1 gm/ (Sodium Chloride) 100 mls @ 100 mls/hr IVPB DAILY [facility] PRN Reason: Protocol Last Admin: 12/13/17 10:01 Dose: 100 mls/hr Azithromycin 500 mg/ Sodium (Chloride) 250 mls @ 250 mls/hr IVPB DAILY [facility] PRN Reason: Protocol Last Admin: 12/13/17 11:01 Dose: 250 mls/hr Magnesium Hydroxide (Milk Of Magnesia) 30 ml PO DAILY [facility] Last Admin: 12/13/17 09:57 Dose: 30 ml Metoprolol Succinate (Toprol Xl) 50 mg PO DAILY [facility] Last Admin: 12/13/17 09:58 Dose: 50 mg Petrolatum (Desitin Original) 0 gm TOP DAILY [facility] Last Admin: 12/13/17 10:00 Dose: 1 applic Potassium Chloride (Klor-Con 10) 10 meq PO DAILY [facility] Last Admin: 12/13/17 09:58 Dose: 10 meq - Labs Labs: 12/11/17 12:28 12/11/17 12:28 PT 12.3 SECONDS (9.7-12.2) H 12/11/17 12:28 INR 1.1 12/11/17 12:28 APTT 35 SECONDS (21-34) H 12/11/17 12:28 - Constitutional Appears: Well - Head Exam Head Exam: ATRAUMATIC, NORMAL INSPECTION, NORMOCEPHALIC - Eye Exam Eye Exam: EOMI, Normal appearance, PERRL Pupil Exam: NORMAL ACCOMODATION, PERRL - ENT Exam ENT Exam: Mucous Membranes Moist, Normal Exam - Neck Exam Neck Exam: Full ROM, Normal Inspection. absent: Lymphadenopathy - Respiratory Exam Respiratory Exam: Decreased Breath Sounds - Cardiovascular Exam Cardiovascular Exam: REGULAR RHYTHM, +S1, +S2 - GI/Abdominal Exam GI & Abdominal Exam: Soft, Diminished Bowel Sounds - Rectal Exam Rectal Exam: Deferred
[2017-12-14] MEDS: Albuterol-Ipratrop 3 mg / 0.5 (3 ml) UD INH SCH ×4 (02:56→19:42)
--- NOTE | 2017-12-14 09:09 | CP.PCM.PN ---
Subjective - Date & Time of Evaluation Date of Evaluation: 12/14/17 Time of Evaluation: 09:07 - Subjective Subjective: PT ALERT, FEELS BETTER., LESS COUGH. ROS; OTHERWISE NEG. Objective - Vital Signs/Intake and Output Vital Signs (last 24 hours): Temp Pulse Resp BP Pulse Ox 97.6 F 80 20 111/69 96 12/14/17 08:10 12/14/17 08:10 12/14/17 08:10 12/14/17 08:10 12/14/17 08:10 Intake and Output: 12/14/17 12/14/17 06:59 18:59 Intake Total 400 Output Total 1800 Balance -1400 - Medications Medications: Current Medications Albuterol/Ipratropium (Duoneb 3 Mg/0.5 Mg (3 Ml) Ud) 3 ml INH RQ6 [facility] Last Admin: 12/14/17 08:46 Dose: 3 ml Aspirin (Aspirin Chewable) 81 mg PO DAILY [facility] Last Admin: 12/13/17 10:10 Dose: Not Given Baclofen (Lioresal) 20 mg PO TID [facility] Last Admin: 12/13/17 18:28 Dose: 20 mg Bisacodyl (Dulcolax) 10 mg RC DAILY [facility] PRN Reason: Constipation Diphenhydramine HCl (Benadryl) 25 mg PO Q8 [facility] Last Admin: 12/14/17 05:10 Dose: 25 mg Famotidine (Pepcid) 20 mg PO BID [facility] Last Admin: 12/13/17 18:28 Dose: 20 mg Furosemide (Lasix) 40 mg IVP DAILY [facility] Last Admin: 12/13/17 09:57 Dose: 40 mg Ceftriaxone Sodium 1 gm/ (Sodium Chloride) 100 mls @ 100 mls/hr IVPB DAILY [facility] PRN Reason: Protocol Last Admin: 12/13/17 10:01 Dose: 100 mls/hr Azithromycin 500 mg/ Sodium (Chloride) 250 mls @ 250 mls/hr IVPB DAILY [facility] PRN Reason: Protocol Last Admin: 12/13/17 11:01 Dose: 250 mls/hr Magnesium Hydroxide (Milk Of Magnesia) 30 ml PO DAILY [facility] Last Admin: 12/13/17 09:57 Dose: 30 ml Metoprolol Succinate (Toprol Xl) 50 mg PO DAILY [facility] Last Admin: 12/13/17 09:58 Dose: 50 mg Petrolatum (Desitin Original) 0 gm TOP DAILY [facility] Last Admin: 12/13/17 10:00 Dose: 1 applic Potassium Chloride (Klor-Con 10) 10 meq PO DAILY [facility] Last Admin: 12/13/17 09:58 Dose: 10 meq - Labs Labs: 12/11/17 12:28 12/11/17 12:28 PT 12.3 SECONDS (9.7-12.2) H 12/11/17 12:28 INR 1.1 12/11/17 12:28 APTT 35 SECONDS (21-34) H 12/11/17 12:28 - Constitutional Appears: No Acute Distress, Chronically Ill - Head Exam Head Exam: ATRAUMATIC, NORMOCEPHALIC - Eye Exam Eye Exam: EOMI, Normal appearance - ENT Exam ENT Exam: Mucous Membranes Moist - Neck Exam Neck Exam: Normal Inspection - Respiratory Exam Respiratory Exam: Decreased Breath Sounds. absent: Wheezes, Respiratory Distress - Cardiovascular Exam Cardiovascular Exam: RRR, +S1, +S2 - GI/Abdominal Exam GI & Abdominal Exam: Soft. absent: Tenderness - Rectal Exam Rectal Exam: Deferred - Extremities Exam Extremities Exam: absent: Calf Tenderness, Pedal Edema - Back Exam Back Exam: absent: rash noted - Neurological Exam Neurological Exam: Altered, Awake, CN II-XII Intact, Oriented x3 - Psychiatric Exam Psychiatric exam: absent: Normal Mood - Skin Skin Exam: absent: Rash Assessment and Plan (1) Hypertension Status: Acute (2) Congestive heart failure (CHF) Status: Acute (3) GERD (gastroesophageal reflux disease) Status: Acute (4) BPH (benign prostatic hyperplasia) Status: Acute (5) Pneumonia Status: Acute (6) COPD (chronic obstructive pulmonary disease) Status: Acute (7) UTI (urinary tract infection) Status: Acute (8) Urinary retention Status: Acute - Assessment and Plan (Free Text) Assessment: RESP STATUS IMPROVING., CONT PULM TOILET., NEB BD. MONITOR O2 SAT. CXR REVIEWED. AFEBRILE ON AB. ALMANZAR IN PLACE PER . DISCUSSED WITH STAFF.
--- NOTE | 2017-12-14 09:40 | CP.PCM.CON ---
Past Patient History - Past Medical History & Family History Past Medical History?: Yes Past Family History: Reviewed and not pertinent - Past Social History Smoking Status: Former Smoker Chewing Tobacco Use: No Cigar Use: No Alcohol: None Drugs: Denies - CARDIAC Hx Congestive Heart Failure: Yes (DIASTOLIC CHF) Hx Hypertension: Yes Hx Peripheral Edema: Yes - PULMONARY Hx Chronic Obstructive Pulmonary Disease (COPD): Yes Hx Pneumonia: Yes (BRONCHOPNEUMONIA UNSPECIFIED ORGANISM(11/04/15)) - NEUROLOGICAL Hx Neurological Disorder: Yes Other/Comment: CERVICAL CORD COMPRESSION. CERVICAL STENOSIS. NEUROPATHY - HEENT Hx HEENT Problems: No - RENAL Hx Chronic Kidney Disease: No - ENDOCRINE/METABOLIC Hx Endocrine Disorders: No - HEMATOLOGICAL/ONCOLOGICAL Hx Blood Disorders: No - INTEGUMENTARY Hx Dermatological Problems: Yes Other/Comment: LEFT LOWER EXTREMITY CELLULITIS - MUSCULOSKELETAL/RHEUMATOLOGICAL Hx Musculoskeletal Disorders: Yes Hx Back Pain: Yes Hx Falls: Yes Hx Osteoarthritis: Yes Other/Comment: HX: CERVICAL CORD COMPRESSION. HX: CERVICAL STENOSIS. 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, THORACIC REGION - GASTROINTESTINAL Hx Diverticulitis: Yes - GENITOURINARY/GYNECOLOGICAL Hx Genitourinary Disorders: Yes Hx Bladder Stone: Yes Hx Hematuria: Yes Hx Urinary Tract Infection: Yes - PSYCHIATRIC Hx Substance Use: No - SURGICAL HISTORY Hx Surgeries: No Other/Comment: HX: FLEXIBLE CYSTOSCOPY(08/28/15) - ANESTHESIA Hx Anesthesia: Yes Hx Anesthesia Reactions: No Meds Allergies/Adverse Reactions: Allergies Allergy/AdvReac Type Severity Reaction Status Date / Time No Known Allergies Allergy Verified 08/22/15 07:30 - Medications Medications: Current Medications Albuterol/Ipratropium (Duoneb 3 Mg/0.5 Mg (3 Ml) Ud) 3 ml INH RQ6 [facility] Last Admin: 12/14/17 08:46 Dose: 3 ml Aspirin (Aspirin Chewable) 81 mg PO DAILY [facility] Last Admin: 12/13/17 10:10 Dose: Not Given Baclofen (Lioresal) 20 mg PO TID [facility] Last Admin: 12/13/17 18:28 Dose: 20 mg Bisacodyl (Dulcolax) 10 mg RC DAILY [facility] PRN Reason: Constipation Diphenhydramine HCl (Benadryl) 25 mg PO Q8 [facility] Last Admin: 12/14/17 05:10 Dose: 25 mg Famotidine (Pepcid) 20 mg PO BID [facility] Last Admin: 12/13/17 18:28 Dose: 20 mg Furosemide (Lasix) 40 mg IVP DAILY [facility] Last Admin: 12/13/17 09:57 Dose: 40 mg Ceftriaxone Sodium 1 gm/ (Sodium Chloride) 100 mls @ 100 mls/hr IVPB DAILY [facility] PRN Reason: Protocol Last Admin: 12/13/17 10:01 Dose: 100 mls/hr Azithromycin 500 mg/ Sodium (Chloride) 250 mls @ 250 mls/hr IVPB DAILY [facility] PRN Reason: Protocol Last Admin: 12/13/17 11:01 Dose: 250 mls/hr Magnesium Hydroxide (Milk Of Magnesia) 30 ml PO DAILY [facility] Last Admin: 12/13/17 09:57 Dose: 30 ml Metoprolol Succinate (Toprol Xl) 50 mg PO DAILY [facility] Last Admin: 12/13/17 09:58 Dose: 50 mg Petrolatum (Desitin Original) 0 gm TOP DAILY [facility] Last Admin: 12/13/17 10:00 Dose: 1 applic Potassium Chloride (Klor-Con 10) 10 meq PO DAILY [facility] Last Admin: 12/13/17 09:58 Dose: 10 meq Results - Vital Signs Recent Vital Signs: Last Vital Signs Temp 97.6 F 12/14/17 08:10 Pulse 80 12/14/17 08:10 Resp 20 12/14/17 08:10 BP 111/69 12/14/17 08:10 Pulse Ox 96 12/14/17 08:10 - Labs Result Diagrams: 12/11/17 12:28 12/11/17 12:28 Assessment & Plan - Assessment and Plan (Free Text) Assessment: IMP: Urinary retention Hx of cytitis Hx of BPH Hx of filling defect R ureter full note dictated YS - Date & Time Date: 12/11/17 Time: 13:30
[2017-12-14] MEDS: Potassium Chloride 10 mEq ER Tab PO SCH (09:51)
[2017-12-14] MEDS: Magnesium Hydroxide Susp 30 ml UD PO SCH (09:51)
[2017-12-14] MEDS: Zinc Oxide Topical 30 gm Tube TOP SCH (09:51)
[2017-12-14] MEDS: Metoprolol Succinate 50 mg XL Tab PO SCH (09:52)
[2017-12-14] MEDS: Azithromycin 500 MG in Sodium Chloride 0.9% 250 ML IVPB SCH (11:00)
[2017-12-14] MEDS ORDERED: Iohexol 240 (50 ml) ONE (12:18)
[2017-12-14] MEDS ORDERED: Midazolam 2 MG/2 ML VIAL ONE (12:18)
[2017-12-14] MEDS ORDERED: Propofol 10 mg/ml Inj (20 ML) ONE (12:18)
[2017-12-14] MEDS ORDERED: Lidocaine 2% Jelly (Uro-Jet) ONE (12:19)
--- NOTE | 2017-12-14 12:54 | PCM.SURG1 ---
Surgeon's Initial Post Op Note - Surgeon's Notes Surgeon: Neela Damon Wage Analyst: none Type of Anesthesia: IV Sedation Pre-Operative Diagnosis: Hematuria. retention Operative Findings: cystitis. retention. bladder diverticula Post-Operative Diagnosis: same Operation Performed: cysto. bladder bx and fulg. cystogram Specimen/Specimens Removed: bladder bx. bladder debris Estimated Blood Loss: EBL {In ML}: 0 Blood Products Given: N/A Date of Surgery/Procedure: 12/14/17 Time of Surgery/Procedure: 12:54
--- NOTE | 2017-12-14 14:27 | RAD ---
Date of service: 12/14/2017 PROCEDURE: Intraoperative Fluoroscopy. HISTORY: HEMATURIA FINDINGS: Fluoroscopic assistance was provided. Fluoroscopy time = 8.2 seconds. Radiation dose = 0.16502 mGy-cm Please refer to the operative report from Dr. LYLES, [place].
--- NOTE | 2017-12-14 14:31 | RAD ---
Date of service: 12/14/2017 HISTORY: HEMATURIA COMPARISON: Made CT scan abdomen pelvis 12/11/2017 FINDINGS: BOWEL: Normal. No obstruction. No free air. BONES: Multilevel degenerative spondylosis of the lumbar spine. The OTHER FINDINGS: Hazy opacity overlying the true pelvis extending superiorly consistent with dilute contrast within the lumen of the urinary bladder enlarged bladder diverticulum both of which are seen to better advantage on prior CT scan. IMPRESSION: Hazy opacity overlying the true pelvis extending superiorly consistent with dilute contrast within the lumen of the urinary bladder enlarged bladder diverticulum both of which are seen to better advantage on prior CT scan.
[2017-12-14 15:04] LABS: SQUAMOUS EPITHIAL 1 /hpf (0-5); URINE BACTERIA RARE (<OCC); URINE BILIRUBIN NEGATIVE (NEGATIVE); URINE BLOOD 3+ (NEGATIVE); URINE CLARITY Hazy (Clear); URINE COLOR Red (YELLOW); URINE GLUCOSE (UA) NORMAL (Normal); URINE LEUKOCYTE ESTERASE 2+ Leu/uL (Negative); URINE PROTEIN 2+ mg/dL (NEGATIVE); URINE UROBILINOGEN NORMAL mg/dL (0.2-1.0)
--- NOTE | 2017-12-14 19:04 | CP.PCM.PN ---
Subjective - Date & Time of Evaluation Date of Evaluation: 12/14/17 Time of Evaluation: 07:40 - Subjective Subjective: clinically same Objective - Vital Signs/Intake and Output Vital Signs (last 24 hours): Temp Pulse Resp BP Pulse Ox 97.4 F L 62 20 111/70 95 12/14/17 16:15 12/14/17 16:15 12/14/17 16:15 12/14/17 16:15 12/14/17 16:15 Intake and Output: 12/14/17 12/15/17 18:59 06:59 Intake Total 350 Output Total 1300 Balance -950 - Medications Medications: Current Medications Albuterol/Ipratropium (Duoneb 3 Mg/0.5 Mg (3 Ml) Ud) 3 ml INH RQ6 [facility] Last Admin: 12/14/17 14:26 Dose: Not Given Aspirin (Aspirin Chewable) 81 mg PO DAILY [facility] Last Admin: 12/14/17 09:48 Dose: Not Given Baclofen (Lioresal) 20 mg PO TID [facility] Last Admin: 12/14/17 17:08 Dose: 20 mg Bisacodyl (Dulcolax) 10 mg RC DAILY PRN PRN Reason: Constipation Diphenhydramine HCl (Benadryl) 25 mg PO Q8 [facility] Last Admin: 12/14/17 15:23 Dose: 25 mg Famotidine (Pepcid) 20 mg PO BID [facility] Last Admin: 12/14/17 17:08 Dose: 20 mg Furosemide (Lasix) 40 mg IVP DAILY [facility] Last Admin: 12/14/17 09:50 Dose: 40 mg Ceftriaxone Sodium 1 gm/ (Sodium Chloride) 100 mls @ 100 mls/hr IVPB DAILY [facility] PRN Reason: Protocol Last Admin: 12/14/17 09:50 Dose: 100 mls/hr Azithromycin 500 mg/ Sodium (Chloride) 250 mls @ 250 mls/hr IVPB DAILY [facility] PRN Reason: Protocol Last Admin: 12/14/17 11:00 Dose: Not Given Magnesium Hydroxide (Milk Of Magnesia) 30 ml PO DAILY [facility] Last Admin: 12/14/17 09:51 Dose: Not Given Metoprolol Succinate (Toprol Xl) 50 mg PO DAILY [facility] Last Admin: 12/14/17 09:52 Dose: Not Given Petrolatum (Desitin Original) 0 gm TOP DAILY [facility] Last Admin: 12/14/17 09:51 Dose: Not Given Potassium Chloride (Klor-Con 10) 10 meq PO DAILY [facility] Last Admin: 12/14/17 09:51 Dose: Not Given Tamsulosin HCl (Flomax) 0.4 mg PO DAILY [facility] Last Admin: 12/14/17 10:04 Dose: Not Given - Labs Labs: 12/11/17 12:28 12/11/17 12:28 PT 12.3 SECONDS (9.7-12.2) H 12/11/17 12:28 INR 1.1 12/11/17 12:28 APTT 35 SECONDS (21-34) H 12/11/17 12:28 - Constitutional Appears: Well - Head Exam Head Exam: ATRAUMATIC, NORMAL INSPECTION, NORMOCEPHALIC - Eye Exam Eye Exam: EOMI, Normal appearance, PERRL Pupil Exam: NORMAL ACCOMODATION, PERRL - ENT Exam ENT Exam: Mucous Membranes Moist, Normal Exam - Neck Exam Neck Exam: Full ROM, Normal Inspection. absent: Lymphadenopathy - Respiratory Exam Respiratory Exam: Decreased Breath Sounds - Cardiovascular Exam Cardiovascular Exam: REGULAR RHYTHM, +S1, +S2 - GI/Abdominal Exam GI & Abdominal Exam: Soft, Diminished Bowel Sounds - Rectal Exam Rectal Exam: Deferred
[2017-12-15] MEDS: Albuterol-Ipratrop 3 mg / 0.5 (3 ml) UD INH SCH ×4 (02:47→19:51)
[2017-12-15] MEDS: Metoprolol Succinate 50 mg XL Tab PO SCH ×2 (09:42→10:57)
[2017-12-15] MEDS: Potassium Chloride 10 mEq ER Tab PO SCH (09:42)
[2017-12-15] MEDS: Magnesium Hydroxide Susp 30 ml UD PO SCH (09:43)
[2017-12-15] MEDS: Zinc Oxide Topical 30 gm Tube TOP SCH (09:53)
[2017-12-15] MEDS: Azithromycin 500 MG in Sodium Chloride 0.9% 250 ML IVPB SCH (09:55)
--- NOTE | 2017-12-15 09:58 | CP.PCM.PN ---
Subjective - Date & Time of Evaluation Date of Evaluation: 12/15/17 Time of Evaluation: 09:55 - Subjective Subjective: PT ALERT, LESS COUGH., NO SOB AT REST. ROS';OTHERWISE NEG Objective - Vital Signs/Intake and Output Vital Signs (last 24 hours): Temp Pulse Resp BP Pulse Ox 98.1 F 60 20 112/72 98 12/15/17 08:00 12/15/17 08:00 12/15/17 08:00 12/15/17 08:00 12/15/17 08:00 Intake and Output: 12/15/17 12/15/17 06:59 18:59 Intake Total 700 Output Total 850 Balance -150 - Medications Medications: Current Medications Albuterol/Ipratropium (Duoneb 3 Mg/0.5 Mg (3 Ml) Ud) 3 ml INH RQ6 [facility] Last Admin: 12/15/17 07:28 Dose: 3 ml Aspirin (Aspirin Chewable) 81 mg PO DAILY [facility] Last Admin: 12/15/17 09:41 Dose: 81 mg Baclofen (Lioresal) 20 mg PO TID [facility] Last Admin: 12/15/17 09:42 Dose: 20 mg Bisacodyl (Dulcolax) 10 mg RC DAILY PRN PRN Reason: Constipation Diphenhydramine HCl (Benadryl) 25 mg PO Q8 [facility] Last Admin: 12/15/17 05:35 Dose: 25 mg Famotidine (Pepcid) 20 mg PO BID [facility] Last Admin: 12/15/17 09:43 Dose: 20 mg Furosemide (Lasix) 40 mg IVP DAILY [facility] Last Admin: 12/15/17 09:42 Dose: Not Given Ceftriaxone Sodium 1 gm/ (Sodium Chloride) 100 mls @ 100 mls/hr IVPB DAILY [facility] PRN Reason: Protocol Last Admin: 12/15/17 09:44 Dose: 100 mls/hr Azithromycin 500 mg/ Sodium (Chloride) 250 mls @ 250 mls/hr IVPB DAILY [facility] PRN Reason: Protocol Last Admin: 12/14/17 11:00 Dose: Not Given Magnesium Hydroxide (Milk Of Magnesia) 30 ml PO DAILY [facility] Last Admin: 12/15/17 09:43 Dose: 30 ml Metoprolol Succinate (Toprol Xl) 50 mg PO DAILY [facility] Last Admin: 12/15/17 09:42 Dose: Not Given Petrolatum (Desitin Original) 0 gm TOP DAILY [facility] Last Admin: 12/15/17 09:53 Dose: Not Given Tamsulosin HCl (Flomax) 0.4 mg PO DAILY [facility] Last Admin: 12/15/17 09:41 Dose: 0.4 mg - Labs Labs: 12/11/17 12:28 12/11/17 12:28 PT 12.3 SECONDS (9.7-12.2) H 12/11/17 12:28 INR 1.1 12/11/17 12:28 APTT 35 SECONDS (21-34) H 12/11/17 12:28 - Constitutional Appears: Non-toxic, No Acute Distress, Chronically Ill - Head Exam Head Exam: ATRAUMATIC, NORMOCEPHALIC - Eye Exam Eye Exam: EOMI, Normal appearance - ENT Exam ENT Exam: Mucous Membranes Moist - Neck Exam Neck Exam: Normal Inspection - Respiratory Exam Respiratory Exam: Decreased Breath Sounds. absent: Accessory Muscle Use, Wheezes, Respiratory Distress - Cardiovascular Exam Cardiovascular Exam: RRR, +S1, +S2 - GI/Abdominal Exam GI & Abdominal Exam: Soft. absent: Tenderness - Rectal Exam Rectal Exam: Deferred - Extremities Exam Extremities Exam: absent: Calf Tenderness, Pedal Edema - Back Exam Back Exam: absent: rash noted - Neurological Exam Neurological Exam: Alert, Awake, CN II-XII Intact, Oriented x3 - Psychiatric Exam Psychiatric exam: Normal Mood - Skin Skin Exam: absent: Rash Assessment and Plan (1) Hypertension Status: Acute (2) Congestive heart failure (CHF) Status: Acute (3) GERD (gastroesophageal reflux disease) Status: Acute (4) BPH (benign prostatic hyperplasia) Status: Acute (5) Pneumonia Status: Acute (6) COPD (chronic obstructive pulmonary disease) Status: Acute (7) UTI (urinary tract infection) Status: Acute (8) Urinary retention Status: Acute - Assessment and Plan (Free Text) Assessment: RESP STATUS IMPROVING., CONT NEB BD. MONITOR O2 SAT. CXR REVIEWED., S/P CYSTO YESTERDAY RESULTS NOTED, F/U BX RESULTS. AFEBRILE ON AB. DISCUSSED WITH STAFF AT LENGTH.
[2017-12-15 12:04] LABS: BASO % 0.4 % (0.0-2.0); EOS # 0.3 K/uL (0.0-0.7); EOS % 4.1 % (0.0-4.0); HEMOGLOBIN 12.2 g/dL (12.0-18.0); LYMPH # 2.8 K/uL (1.0-4.3); LYMPH % 36.6 % (20.0-40.0); MEAN CELL VOLUME 83.3 fL (80.0-94.0); MEAN CORPUSCULAR HEMOGLOBIN 25.9 pg (27.0-31.0); MEAN CORPUSCULAR HGB CONC 31.1 g/dL (33.0-37.0); MEAN PLATELET VOLUME 7.1 fL (7.2-11.7); MONO # 0.6 K/uL (0.0-0.8); NEUT # 3.8 K/uL (1.8-7.0); NEUT % 50.9 % (50.0-75.0); RBC 4.7 Mil/uL (4.40-5.90); RED CELL DISTRIBUTION WIDTH 16.8 % (11.5-14.5); WHITE BLOOD COUNT 7.5 K/uL (4.8-10.8)
[2017-12-15 12:32] LABS: BLOOD UREA NITROGEN 18 mg/dL (9-20); CALCIUM 7.8 mg/dl (8.6-10.4); GFR AFRICAN-AMERICAN > 60; GFR NON-AFRICAN AMERICAN > 60
[2017-12-15 16:29] VITALS: RESP 20
--- NOTE | 2017-12-15 18:23 | OP ---
Copied To: Jing Damon MD Attending MD: Jing Damon MD PROCEDURE DATE: 12/14/2017 UROLOGY OPERATIVE REPORT PREOPERATIVE DIAGNOSES: Urinary retention. Urinary tract infection. POSTOPERATIVE DIAGNOSES: Urinary retention. Urinary tract infection. Hemorrhagic cystitis. Bladder diverticulum. Benign prostatic hypertrophy. PROCEDURES: Cystoscopy. Bladder biopsy and fulguration. Attempted retrograde pyelogram. Cystogram. Procedure was performed under video endoscopic control as well as under fluoroscopic control. PROCEDURE FOLLOWS: The patient was placed in lithotomy position. Genitalia prepped and draped sterilely. Sedation was provided by the anesthesiologist. A 22-Swiss cystoscope sheath was introduced under direct vision. Urethra, prostate and bladder were inspected with 30-degree and 70-degree lenses. FINDINGS: There was no stricture in the anterior urethra. There was evidence of a trilobar prostatic hypertrophy. Prostatic urethra was 3.5 cm in length and occlusive. There was no bladder neck contraction. There was no urethral stricture. The urine within the bladder was turbid and slightly pink. There was diffuse severe hemorrhagic cystitis. There was no focal lesions within the bladder. There were some areas of discoloration and granular tissue. There was a small stone within the bladder, which was washed out, although not retrieved. The ureteral orifices could not be identified. Attempt at performed retrograde pyelogram was made. However, the right ureteral orifice cannot be identified. There was trabeculation. There are multiple diverticula. Some of the small diverticulum were entered with the cystoscope. There were no mucosal lesions or tumors within the diverticulum. The bladder was reinspected with 70-degree lens to confirm the above findings. The area of telephone service representative abnormal bladder mucosa was biopsied using cold biopsy forceps. Fulguration was performed with both electrode and electrocautery. Hemostasis was complete. The cystoscope and sheath removed. Olivares catheter was inserted. Iodinated contrast dye was instilled via the Olivares catheter. The cystogram under fluoroscopic control reveals that the catheter was within the bladder diverticulum. The balloon was deflated. The catheter was withdrawn several centimeters. The balloon was re-inflated and confirmed to be within the bladder neck. Repeat cystogram confirmed the above findings. The pus had drained. Cystoscope and sheath removed. Exam under anesthesia/bimanual examination was performed. Prostate was supple and smooth, approximately 30 to 40 g in size, without fixation, induration or nodularity. There was no abnormal pelvic mass fixation or induration. The patient tolerated the procedure without complication. Jing Damon MD CC: Faustino Holt MD
--- NOTE | 2017-12-15 20:31 | CP.PCM.PN ---
Subjective - Date & Time of Evaluation Date of Evaluation: 12/15/17 Time of Evaluation: 07:20 - Subjective Subjective: clinically same Objective - Vital Signs/Intake and Output Vital Signs (last 24 hours): Temp Pulse Resp BP Pulse Ox 98.1 F 61 20 90/51 L 96 12/15/17 16:28 12/15/17 16:28 12/15/17 16:28 12/15/17 16:28 12/15/17 16:28 Intake and Output: 12/15/17 12/16/17 18:59 06:59 Intake Total 950 Output Total 800 Balance 150 - Medications Medications: Current Medications Albuterol/Ipratropium (Duoneb 3 Mg/0.5 Mg (3 Ml) Ud) 3 ml INH RQ6 [facility] Last Admin: 12/15/17 19:51 Dose: Not Given Aspirin (Aspirin Chewable) 81 mg PO DAILY [facility] Last Admin: 12/15/17 09:41 Dose: 81 mg Baclofen (Lioresal) 20 mg PO TID [facility] Last Admin: 12/15/17 18:17 Dose: 20 mg Bisacodyl (Dulcolax) 10 mg RC DAILY PRN PRN Reason: Constipation Diphenhydramine HCl (Benadryl) 25 mg PO Q8 [facility] Last Admin: 12/15/17 13:07 Dose: Not Given Famotidine (Pepcid) 20 mg PO BID [facility] Last Admin: 12/15/17 18:17 Dose: 20 mg Furosemide (Lasix) 40 mg IVP DAILY [facility] Last Admin: 12/15/17 09:42 Dose: Not Given Ceftriaxone Sodium 1 gm/ (Sodium Chloride) 100 mls @ 100 mls/hr IVPB DAILY [facility] PRN Reason: Protocol Last Admin: 12/15/17 09:44 Dose: 100 mls/hr Azithromycin 500 mg/ Sodium (Chloride) 250 mls @ 250 mls/hr IVPB DAILY [facility] PRN Reason: Protocol Last Admin: 12/15/17 09:55 Dose: 250 mls/hr Magnesium Hydroxide (Milk Of Magnesia) 30 ml PO DAILY [facility] Last Admin: 12/15/17 09:43 Dose: 30 ml Metoprolol Succinate (Toprol Xl) 50 mg PO DAILY [facility] Last Admin: 12/15/17 10:57 Dose: 50 mg Petrolatum (Desitin Original) 0 gm TOP DAILY [facility] Last Admin: 12/15/17 09:53 Dose: Not Given Tamsulosin HCl (Flomax) 0.4 mg PO DAILY [facility] Last Admin: 12/15/17 09:41 Dose: 0.4 mg - Labs Labs: 12/15/17 11:54 12/15/17 11:54 PT 12.3 SECONDS (9.7-12.2) H 12/11/17 12:28 INR 1.1 12/11/17 12:28 APTT 35 SECONDS (21-34) H 12/11/17 12:28 - Constitutional Appears: Well - Head Exam Head Exam: ATRAUMATIC, NORMAL INSPECTION, NORMOCEPHALIC - Eye Exam Eye Exam: EOMI, Normal appearance, PERRL Pupil Exam: NORMAL ACCOMODATION, PERRL - ENT Exam ENT Exam: Mucous Membranes Moist, Normal Exam - Neck Exam Neck Exam: Full ROM, Normal Inspection. absent: Lymphadenopathy - Respiratory Exam Respiratory Exam: Decreased Breath Sounds - Cardiovascular Exam Cardiovascular Exam: REGULAR RHYTHM, +S1, +S2 - GI/Abdominal Exam GI & Abdominal Exam: Soft, Diminished Bowel Sounds - Rectal Exam Rectal Exam: Deferred
--- NOTE | 2017-12-16 00:05 | PCM.URO ---
Urology Progress Note - General General: No Complaints, Tolerating Diet - Subjective Abdominal Pain: No Flank Pain: No Nausea: No Vomiting: No Voiding Well: No Dsypnea: No Chest Pain: No Fever & Chills: No - Objective Lab Results Last 24 Hours: Laboratory Results - last 24 hr 12/15/17 12/15/17 11:54 11:54 WBC 7.5 RBC 4.70 Hgb 12.2 Hct 39.2 MCV 83.3 MCH 25.9 L MCHC 31.1 L RDW 16.8 H Plt Count 226 MPV 7.1 L Neut % (Auto) 50.9 Lymph % (Auto) 36.6 [place] % (Auto) 8.0 Eos % (Auto) 4.1 H Baso % (Auto) 0.4 Neut # (Auto) 3.8 Lymph # (Auto) 2.8 [place] # (Auto) 0.6 Eos # (Auto) 0.3 Baso # (Auto) 0.0 Sodium 135 Potassium 4.0 Chloride 92 L Carbon Dioxide 39 H Anion Gap 9 L BUN 18 Creatinine 0.8 Est GFR ( Amer) > 60 Est GFR (Non-Af Amer) > 60 Random Glucose 130 H Calcium 7.8 L Intake & Output: Intake & Output 12/15/17 12/15/17 12/16/17 06:59 18:59 06:59 Intake Total 700 950 400 Output Total 850 800 750 Balance -150 150 -350 Intake: Intake, IV Amount 350 Right Antecubital 350 Oral 700 600 400 Output: Urine 850 800 750 2-way Urethral 850 800 Urethral (Olivares) 750 Other: # Bowel Movements 0 Vital Signs: Vital Signs - 24 hr 12/15/17 12/15/17 12/15/17 08:00 10:40 16:28 Temperature 98.1 F 98.1 F Pulse Rate 60 61 Respiratory 20 71 H 20 Rate Blood Pressure 112/72 113/76 90/51 L O2 Sat by Pulse 98 96 Oximetry 12/15/17 12/15/17 19:57 23:37 Temperature 98.3 F Pulse Rate 65 64 Respiratory 20 Rate Blood Pressure 118/62 105/66 O2 Sat by Pulse 96 Oximetry - Physical Exam Abdominal Exam: Soft, Non-Tender, Non-Distended Back: No CVA Tenderness Genitalia: Without Inflammation Urinary Catheter Draining Well: Yes Urine Color: Yellow (cloudy urine) - Male Phallus: Normal Scrotum: Normal Testes: Normal: Bilateral - Plan Catheter Care: Yes Intake & Output: Yes Additional Information: IMP: Stable p cysto. UTI. BPH. Rec/P. Catheter in place. Antibiotic RX. Poss need for TURP - Date & Time of Note Date: 12/15/17 Time: 10:20
[2017-12-16] MEDS: Albuterol-Ipratrop 3 mg / 0.5 (3 ml) UD INH SCH ×4 (01:38→19:22)
[2017-12-16] MEDS: Zinc Oxide Topical 30 gm Tube TOP SCH (09:07)
[2017-12-16] MEDS: Magnesium Hydroxide Susp 30 ml UD PO SCH (09:08)
[2017-12-16] MEDS: Metoprolol Succinate 50 mg XL Tab PO SCH (09:08)
[2017-12-16] MEDS: Azithromycin 500 MG in Sodium Chloride 0.9% 250 ML IVPB SCH (09:10)
--- NOTE | 2017-12-16 09:58 | CP.PCM.PN ---
Subjective - Date & Time of Evaluation Date of Evaluation: 12/16/17 Time of Evaluation: 09:56 - Subjective Subjective: PT ALERT, +MILD SOB NOW. LESS COUGH. ROS; OTHERWISE NEG. Objective - Vital Signs/Intake and Output Vital Signs (last 24 hours): Temp Pulse Resp BP Pulse Ox 98.6 F 75 20 101/72 94 L 12/16/17 08:01 12/16/17 08:01 12/16/17 08:01 12/16/17 09:08 12/16/17 08:01 Intake and Output: 12/16/17 12/16/17 06:59 18:59 Intake Total 520 Output Total 1350 Balance -830 - Medications Medications: Current Medications Albuterol/Ipratropium (Duoneb 3 Mg/0.5 Mg (3 Ml) Ud) 3 ml INH RQ6 [facility] Last Admin: 12/16/17 07:40 Dose: Not Given Aspirin (Aspirin Chewable) 81 mg PO DAILY [facility] Last Admin: 12/16/17 09:09 Dose: 81 mg Baclofen (Lioresal) 20 mg PO TID [facility] Last Admin: 12/16/17 09:08 Dose: 20 mg Bisacodyl (Dulcolax) 10 mg RC DAILY [facility] PRN Reason: Constipation Diphenhydramine HCl (Benadryl) 25 mg PO Q8 [facility] Last Admin: 12/16/17 05:31 Dose: 25 mg Famotidine (Pepcid) 20 mg PO BID [facility] Last Admin: 12/16/17 09:08 Dose: 20 mg Furosemide (Lasix) 40 mg IVP DAILY [facility] Last Admin: 12/16/17 09:08 Dose: 40 mg Ceftriaxone Sodium 1 gm/ (Sodium Chloride) 100 mls @ 100 mls/hr IVPB DAILY [facility] PRN Reason: Protocol Last Admin: 12/16/17 09:07 Dose: 100 mls/hr Azithromycin 500 mg/ Sodium (Chloride) 250 mls @ 250 mls/hr IVPB DAILY [facility] PRN Reason: Protocol Last Admin: 12/16/17 09:10 Dose: 250 mls/hr Magnesium Hydroxide (Milk Of Magnesia) 30 ml PO DAILY [facility] Last Admin: 12/16/17 09:08 Dose: 30 ml Metoprolol Succinate (Toprol Xl) 50 mg PO DAILY [facility] Last Admin: 08/08/18 09:08 Dose: 50 mg Petrolatum (Desitin Original) 0 gm TOP DAILY [facility] Last Admin: 12/16/17 09:07 Dose: 1 applic Tamsulosin HCl (Flomax) 0.4 mg PO DAILY [facility] Last Admin: 12/16/17 09:08 Dose: 0.4 mg - Labs Labs: 12/15/17 11:54 12/15/17 11:54 PT 12.3 SECONDS (9.7-12.2) H 12/11/17 12:28 INR 1.1 12/11/17 12:28 APTT 35 SECONDS (21-34) H 12/11/17 12:28 - Constitutional Appears: No Acute Distress, Chronically Ill - Head Exam Head Exam: ATRAUMATIC, NORMOCEPHALIC - Eye Exam Eye Exam: EOMI, Normal appearance - ENT Exam ENT Exam: Mucous Membranes Moist - Respiratory Exam Respiratory Exam: Decreased Breath Sounds. absent: Wheezes - Cardiovascular Exam Cardiovascular Exam: RRR, +S1, +S2 - GI/Abdominal Exam GI & Abdominal Exam: Soft. absent: Tenderness - Rectal Exam Rectal Exam: Deferred - Extremities Exam Extremities Exam: absent: Calf Tenderness, Pedal Edema - Neurological Exam Neurological Exam: Alert, Awake, CN II-XII Intact, Oriented x3 - Psychiatric Exam Psychiatric exam: Normal Mood - Skin Skin Exam: absent: Rash Assessment and Plan (1) Hypertension Status: Acute (2) Congestive heart failure (CHF) Status: Acute (3) GERD (gastroesophageal reflux disease) Status: Acute (4) BPH (benign prostatic hyperplasia) Status: Acute (5) Pneumonia Status: Acute (6) COPD (chronic obstructive pulmonary disease) Status: Acute (7) UTI (urinary tract infection) Status: Acute (8) Urinary retention Status: Acute - Assessment and Plan (Free Text) Assessment: RESP STATUS SL TACHYPNEIC TODAY. CHECK ABG. HOLD LASIX. ALMANZAR IN PLACE NO HEMATURIA. FOR POSS TURP. AFEBRILE ON AB. CXR REVIEWED. DISCUSSED WITH STAFF AT LENGTH.
[2017-12-16 10:46] LABS: ARTERIAL BLOOD GAS HCO3 32.8 mmol/L (21-28); ARTERIAL BLOOD GAS HEMOGLOBIN 12.8 g/dL (11.7-17.4); ARTERIAL BLOOD GAS O2 SAT 92.6 % (95-98); ARTERIAL BLOOD GAS PCO2 66 mm/Hg (35-45); ARTERIAL BLOOD GAS PH 7.37 (7.35-7.45); ARTERIAL BLOOD GAS PO2 63 mm/Hg (80-100); ARTERIAL BLOOD GAS TCO2 40.2 mmol/L (22-28)
--- NOTE | 2017-12-16 12:09 | CARD ---
APPROVED REPORT Date of service: 12/11/2017 EKG Measurement Heart [id number] <Conclusion> Sinus rhythm with premature atrial complexes Low voltage QRS Borderline ECG
--- NOTE | 2017-12-16 12:30 | CP.PCM.PN ---
Subjective - Date & Time of Evaluation Date of Evaluation: 12/16/17 Time of Evaluation: 07:20 - Subjective Subjective: clinically same Objective - Vital Signs/Intake and Output Vital Signs (last 24 hours): Temp Pulse Resp BP Pulse Ox 98.6 F 75 20 101/72 94 L 12/16/17 08:01 12/16/17 08:01 12/16/17 08:01 12/16/17 09:08 12/16/17 08:01 Intake and Output: 12/16/17 12/16/17 06:59 18:59 Intake Total 520 Output Total 1350 Balance -830 - Medications Medications: Current Medications Albuterol/Ipratropium (Duoneb 3 Mg/0.5 Mg (3 Ml) Ud) 3 ml INH RQ6 [facility] Last Admin: 12/16/17 07:40 Dose: Not Given Aspirin (Aspirin Chewable) 81 mg PO DAILY [facility] Last Admin: 12/16/17 09:09 Dose: 81 mg Baclofen (Lioresal) 20 mg PO TID [facility] Last Admin: 12/16/17 09:08 Dose: 20 mg Bisacodyl (Dulcolax) 10 mg RC DAILY PRN PRN Reason: Constipation Diphenhydramine HCl (Benadryl) 25 mg PO Q8 PRN PRN Reason: Allergy symptoms Famotidine (Pepcid) 20 mg PO BID [facility] Last Admin: 12/16/17 09:08 Dose: 20 mg Furosemide (Lasix) 40 mg IVP DAILY [facility] Last Admin: 12/16/17 09:08 Dose: 40 mg Ceftriaxone Sodium 1 gm/ (Sodium Chloride) 100 mls @ 100 mls/hr IVPB DAILY [facility] PRN Reason: Protocol Last Admin: 12/16/17 09:07 Dose: 100 mls/hr Azithromycin 500 mg/ Sodium (Chloride) 250 mls @ 250 mls/hr IVPB DAILY [facility] PRN Reason: Protocol Last Admin: 12/16/17 09:10 Dose: 250 mls/hr Magnesium Hydroxide (Milk Of Magnesia) 30 ml PO DAILY [facility] Last Admin: 12/16/17 09:08 Dose: 30 ml Metoprolol Succinate (Toprol Xl) 50 mg PO DAILY [facility] Last Admin: 12/16/17 09:08 Dose: 50 mg Petrolatum (Desitin Original) 0 gm TOP DAILY [facility] Last Admin: 12/16/17 09:07 Dose: 1 applic Tamsulosin HCl (Flomax) 0.4 mg PO DAILY [facility] Last Admin: 12/16/17 09:08 Dose: 0.4 mg - Labs Labs: 12/15/17 11:54 12/15/17 11:54 PT 12.3 SECONDS (9.7-12.2) H 12/11/17 12:28 INR 1.1 12/11/17 12:28 APTT 35 SECONDS (21-34) H 12/11/17 12:28
--- NOTE | 2017-12-16 13:06 | PCM.URO ---
Urology Progress Note - General General: No Complaints - Subjective Abdominal Pain: No Hematuria: No Dsypnea: Yes Chest Pain: No Fever & Chills: No - Objective Lab Results Last 24 Hours: Laboratory Results - last 24 hr 12/16/17 10:42 Puncture Site Rba pCO2 66 H pO2 63 L HCO3 32.8 H ABG pH 7.37 ABG Total CO2 40.2 H ABG O2 Saturation 92.6 L ABG Base Excess 10.4 H ABG Hemoglobin 12.8 ABG Carboxyhemoglobin 1.6 H POC ABG HHb (Measured) 7.2 H ABG Methemoglobin 1.7 Aníbal Test Na A-a O2 Difference 54.0 Respiratory Index 0.9 Hgb O2 Saturation 89.5 L Liter Flow 2.0 FiO2 28.0 Intake & Output: Intake & Output 12/15/17 12/16/17 12/16/17 18:59 06:59 18:59 Intake Total 950 520 Output Total 800 1350 Balance 150 -830 Intake: Intake, IV Amount 350 Right Antecubital 350 Oral 600 520 Output: Urine 800 1350 2-way Urethral 800 600 Urethral (Olivares) 750 Other: # Bowel Movements 0 Vital Signs: Vital Signs - 24 hr 12/15/17 12/15/17 12/15/17 16:28 19:57 23:37 Temperature 98.1 F 98.3 F Pulse Rate 61 65 64 Respiratory 20 20 Rate Blood Pressure 90/51 L 118/62 105/66 O2 Sat by Pulse 96 96 Oximetry 12/16/17 12/16/17 08:01 09:08 Temperature 98.6 F Pulse Rate 75 Respiratory 20 Rate Blood Pressure 105/66 101/72 O2 Sat by Pulse 94 L Oximetry - Physical Exam Abdominal Exam: Non-Tender. absent: Non-Distended (protuberent abd) Back: No CVA Tenderness Genitalia: Without Inflammation Urine Color: Yellow - Male Phallus: Normal (IMP: UTI retention BPH copd P?Rec: Antibiotic rxPoss TURP t/ f Discussed w pt and nursing staff YS)
[2017-12-16 16:27] VITALS: BP 107/67; PULSE 62; TEMP 98.2; O2SAT 95
--- NOTE | 2017-12-16 17:46 | CP.PCM.PN ---
Subjective - Date & Time of Evaluation Date of Evaluation: 12/17/17 Time of Evaluation: 11:00 - Subjective Subjective: awake, alert, no acute distress noted. Objective - Vital Signs/Intake and Output Vital Signs (last 24 hours): Temp Pulse Resp BP Pulse Ox 98.2 F 62 20 107/67 95 12/16/17 16:26 12/16/17 16:26 12/16/17 16:26 12/16/17 16:26 12/16/17 16:26 Intake and Output: 12/16/17 12/16/17 06:59 18:59 Intake Total 520 Output Total 1350 1700 Balance -830 -1700 - Medications Medications: Current Medications Albuterol/Ipratropium (Duoneb 3 Mg/0.5 Mg (3 Ml) Ud) 3 ml INH RQ6 [facility] Last Admin: 12/16/17 13:51 Dose: Not Given Aspirin (Aspirin Chewable) 81 mg PO DAILY [facility] Last Admin: 12/16/17 09:09 Dose: 81 mg Baclofen (Lioresal) 20 mg PO TID [facility] Last Admin: 12/16/17 13:31 Dose: Not Given Bisacodyl (Dulcolax) 10 mg RC DAILY PRN PRN Reason: Constipation Diphenhydramine HCl (Benadryl) 25 mg PO Q8 PRN PRN Reason: Allergy symptoms Famotidine (Pepcid) 20 mg PO BID [facility] Last Admin: 12/16/17 17:43 Dose: 20 mg Furosemide (Lasix) 40 mg IVP DAILY [facility] Last Admin: 12/16/17 09:08 Dose: 40 mg Ceftriaxone Sodium 1 gm/ (Sodium Chloride) 100 mls @ 100 mls/hr IVPB DAILY [facility] PRN Reason: Protocol Last Admin: 12/16/17 09:07 Dose: 100 mls/hr Azithromycin 500 mg/ Sodium (Chloride) 250 mls @ 250 mls/hr IVPB DAILY [facility] PRN Reason: Protocol Last Admin: 12/16/17 09:10 Dose: 250 mls/hr Magnesium Hydroxide (Milk Of Magnesia) 30 ml PO DAILY [facility] Last Admin: 12/16/17 09:08 Dose: 30 ml Metoprolol Succinate (Toprol Xl) 50 mg PO DAILY [facility] Last Admin: 12/16/17 09:08 Dose: 50 mg Petrolatum (Desitin Original) 0 gm TOP DAILY [facility] Last Admin: 12/16/17 09:07 Dose: 1 applic Tamsulosin HCl (Flomax) 0.4 mg PO DAILY [facility] Last Admin: 12/16/17 09:08 Dose: 0.4 mg - Labs Labs: 12/15/17 11:54 12/15/17 11:54 PT 12.3 SECONDS (9.7-12.2) H 12/11/17 12:28 INR 1.1 12/11/17 12:28 APTT 35 SECONDS (21-34) H 12/11/17 12:28 Assessment and Plan - Assessment and Plan (Free Text) Assessment: Patient admitted from [facility] with urinary retention, COPD, seen and examined. Alert, awake no acute distress. Has shortness of breath noted on and off. ABG showed PCO2 at 66 %. BIPAP ordered by DR Godinez ordered. Patient refuses to apply thee BIPAP and insisted to go back to the long-term. Discussed with DR Godinez and DR Jame Holt, plan to discharge back to ICU. Arranged for BIPAP at night at [facility]. Will continue with vancomycin 1 gm daily x [address] Magaña.
== END 2017-12-16 20:15 | DRG 668 ==
LOC: C.ER 11:22 → C.3T 13:16
PROVIDERS: ADMIT Internal Medicine Nephrology; ATTEND Internal Medicine Nephrology
PROC: 0TBB8ZX Excision of Bladder, Via Natural or Artificial Opening Endoscopic, Diagnostic (ICD-10-PCS; principal; 2017-12-14 12:45)
DX: C67.2 Malignant neoplasm of lateral wall of bladder (principal); J18.9 Pneumonia, unspecified organism; I50.32 Chronic diastolic (congestive) heart failure; L03.116 Cellulitis of left lower limb; N39.0 Urinary tract infection, site not specified; N30.91 Cystitis, unspecified with hematuria; N32.3 Diverticulum of bladder; N40.1 Benign prostatic hyperplasia with lower urinary tract symptoms; Z87.891 Personal history of nicotine dependence; M48.02 Spinal stenosis, cervical region; I11.0 Hypertensive heart disease with heart failure

== ENCOUNTER 2018-01-12 12:07 | Inpatient (IN) | payer MEDICARE, MEDICAID ==
[2018-01-12 12:27] VITALS: BMI 32.9
[2018-01-12] MEDS ORDERED: Cefepime IV 2 gm in Dextrose 2 GM/100 ML BAG IVPB STA (12:30)
[2018-01-12] MEDS ORDERED: Sodium Chloride 0.9% 1,000 ML IV ONE ×3 (12:30→19:20)
--- NOTE | 2018-01-12 12:38 | C.PDOC ---
History Of Present Illness 77yo male, sent to ER from his skilled nursing for evaluation of altered mental status. Patient was reportedly last seen normal yesterday. Per skilled nursing records, patient had a fever. A full HPI and ROS is unavailable due to patient' s clinical condition. Time Seen by Provider: 01/12/18 12:17 History Per: Other (records from skilled nursing) History/Exam Limitations: Clinical Condition Onset/Duration Of Symptoms: Unknown Onset Of Symptoms: Other (1 day) Current Symptoms Are (Timing): Still Present Exacerbating Factor(s): Fever Additional History Per: Retirement Associated Symptoms: Fever Past Medical History Reviewed: Historical Data, Nursing Documentation, Vital Signs Vital Signs: Last Vital Signs Temp 98.2 F 01/12/18 15:35 Pulse 69 01/12/18 15:35 Resp 15 01/12/18 15:35 BP 73/42 L 01/12/18 15:35 Pulse Ox 99 01/12/18 15:19 - Medical History PMH: CHF (DIASTOLIC CHF), COPD, Diverticulitis, HTN, Peripheral Edema, Pneumonia (BRONCHOPNEUMONIA UNSPECIFIED ORGANISM(11/04/15)) Denies: Chronic Kidney Disease Surgical History: No Surg Hx - [facility] Procedures EXCISION OF BLADDER, ENDO, DIAGN (12/11/17) Family History: States: No Known Family Hx - Social History Hx Tobacco Use: Yes (stopped 7 months ago ) Hx Alcohol Use: No Hx Substance Use: No Review Of Systems Review Of Systems: ROS cannot be obtained secondary to pt's inabilty to answer questions. (clinical condition) Constitutional: Positive for: Fever Neurological: Positive for: Altered Mental Status Physical Exam - Physical Exam Appears: In Acute Distress, Confused Skin: Other (abrasion noted to left anterior tib/fib) Head: Atraumatic, Normacephalic Eye(s): bilateral: Normal Inspection Neck: Supple Chest: Symmetrical Cardiovascular: Rhythm Regular Respiratory: Normal Breath Sounds Gastrointestinal/Abdominal: Soft, No Tenderness Extremity: Pedal Edema (bilaterally), Other (upper extremities contracted) Neurological/Psych: Other (unable to assess due to clinical condition) ED Course And Treatment - Laboratory Results Result Diagrams: 01/12/18 13:05 01/12/18 13:05 ECG: Interpreted By Me, Viewed By Me ECG Rhythm: Sinus Rhythm Interpretation Of ECG: Normal intervals, normal axis, occasional PAC's, no ST/T wave changes Rate From EC Critical Care Time - Critical Care Note Total Time (in mins): 75 Documented critical care: time excludes all time spent performing seperately billable procedures. Medical Decision Making Medical Decision Making: Assessment: Altered mental status Plan: * Labs * CT Head w/o contrast * Urinalysis * Urine culture * Blood culture * IV Fluids * Tylenol 975mg GA * Cefepime 2gm IV Patient went into SVT rhythm and repeat EKG was done. Adenosine given and rate decrease noted; patient noted to have underlying A-Fib. [address] Cannon, who will evaluate patient for critical care consult. [address] Don Geronimo who states Dr. Blanco is covering cardiology today. [address] Blanco, awaiting call back. [address] Blanco who recommends patient to be placed on Levofed drip and to upgrade admission to to ICU. Disposition Discussed With DrDrea: Susan Holt Counseled Patient/Family Regarding: Studies Performed, Diagnosis - Disposition Disposition: HOSPITALIZED Disposition Time: 14:07 Condition: FAIR - Clinical Impression Clinical Impression: Mental status alteration, Fever, UTI (urinary tract infection), Atrial fibrillation - Scribe Statement The provider has reviewed the documentation as recorded by the Tiffanie Ribeiro Provider Attestation: All medical record entries made by the Tiffanie were at my direction and personally dictated by me. I have reviewed the chart and agree that the record accurately reflects my personal performance of the history, physical exam, medical decision making, and the department course for this patient. I have also personally directed, reviewed, and agree with the discharge instructions and disposition.
[2018-01-12 13:09] LABS: VENOUS BLOOD GAS BASE EXCESS 8.2 mmol/L (0.0-2.0); VENOUS BLOOD GAS PCO2 62 mmHg (40-60); VENOUS BLOOD GAS PO2 51 mm/Hg (30-55); VENOUS BLOOD PH 7.37 (7.32-7.43)
[2018-01-12 13:11] LABS: BASO # 0.1 K/uL (0.0-0.2); BASO % 0.4 % (0.0-2.0); HEMOGLOBIN 12.3 g/dL (12.0-18.0); LYMPH # 1.4 K/uL (1.0-4.3); LYMPH % 6.9 % (20.0-40.0); MEAN CORPUSCULAR HEMOGLOBIN 26.2 pg (27.0-31.0); MEAN CORPUSCULAR HGB CONC 32.5 g/dL (33.0-37.0); MONO # 1.8 K/uL (0.0-0.8); MONO % 8.8 % (0.0-10.0); NEUT # 17.3 K/uL (1.8-7.0); NEUT % 83.9 % (50.0-75.0); PLATELET COUNT 238 K/uL (130-400); RBC 4.72 Mil/uL (4.40-5.90); RED CELL DISTRIBUTION WIDTH 16.8 % (11.5-14.5)
[2018-01-12 13:13] LABS: MEAN CELL VOLUME 80.4 fL (80.0-94.0); WHITE BLOOD COUNT 20.6 K/uL (4.8-10.8)
[2018-01-12 13:20] LABS: INR 1.3; PROTHROMBIN TIME 14.2 SECONDS (9.7-12.2)
[2018-01-12 13:28] LABS: ALBUMIN 3.7 g/dL (3.5-5.0); ALT/SGPT 25 U/L (21-72); AST/SGOT 40 U/L (17-59); BLOOD UREA NITROGEN 45 mg/dL (9-20); CALCIUM 8.9 mg/dl (8.6-10.4); GFR NON-AFRICAN AMERICAN 32; LIPASE < 10 U/L (23-300)
[2018-01-12 13:33] LABS: B-TYPE NATRIURETIC PEPTIDE 1370 pg/mL (0-900)
--- NOTE | 2018-01-12 13:35 | CT ---
Date of service: 01/12/2018 PROCEDURE: CT HEAD WITHOUT CONTRAST. HISTORY: ams COMPARISON: None available. TECHNIQUE: Axial computed tomography images were obtained through the head/brain without intravenous contrast. Radiation dose: Total exam DLP = 1004.11 mGy-cm. This CT exam was performed using one or more of the following dose reduction techniques: Automated exposure control, adjustment of the mA and/or kV according to patient size, and/or use of iterative reconstruction technique. FINDINGS: HEMORRHAGE: No intracranial hemorrhage. BRAIN: Good corticomedullary differentiation is seen. Proportional, diffuse expansion of the ventriculosulcal and cisternal spaces is appreciated with white matter lucency compatible with diffuse cerebral atrophy and chronic microangiopathy. No suspicious extra-axial fluid collection is identified and the midline brain anatomy appears grossly nonfocal as imaged. There is no mass effect throughout. VENTRICLES: Unremarkable. No hydrocephalus. CALVARIUM: Unremarkable. PARANASAL SINUSES: Unremarkable as visualized. No significant inflammatory changes. MASTOID AIR CELLS: Unremarkable as visualized. No inflammatory changes. OTHER FINDINGS: None. IMPRESSION: Mild age related neuro degenerative changes are appreciated which appear age appropriate. No definite acute intracranial findings by standard CT criteria. Follow-up CT or MRI are available if clinically warranted.
[2018-01-12 13:54] LABS: SQUAMOUS EPITHIAL 4 /hpf (0-5); URINE BACTERIA MOD (<OCC); URINE BILIRUBIN NEGATIVE (NEGATIVE); URINE BLOOD 2+ (NEGATIVE); URINE CLARITY Turbid (Clear); URINE COLOR Yellow (YELLOW); URINE GLUCOSE (UA) NORMAL (Normal); URINE LEUKOCYTE ESTERASE 3+ Leu/uL (Negative); URINE PROTEIN 2+ mg/dL (NEGATIVE); URINE UROBILINOGEN NORMAL mg/dL (0.2-1.0); WBC CLUMPS OCC /hpf
--- NOTE | 2018-01-12 13:57 | RAD ---
Date of service: 01/12/2018 HISTORY: Sepsis Patient COMPARISON: 12/11/2017 FINDINGS: LUNGS: No consolidation. Possible trace crowding of bronchovascular markings at each aches inferior extreme lung base -current inspiration less than that before. PLEURA: No significant pleural effusion identified, no pneumothorax apparent. CARDIOVASCULAR: Mild cardiomegaly. Pulmonary vascular appearance top-normal. OSSEOUS STRUCTURES: Cervical spinal hardware fusion partly visualized VISUALIZED UPPER ABDOMEN: Normal. OTHER FINDINGS: None. IMPRESSION: No interval pathology noted. Other findings as above.
[2018-01-12 14:35] LABS: BANDS 12 % (0-2); LYMPHOCYTE 14 % (20-40); MONOCYTE 6 % (0-10); NEUTROPHIL 68 % (50-75); PLATELET ESTIMATE NORMAL (NORMAL); TOTAL CELLS COUNTED 100
[2018-01-12 14:36] LABS: ANISOCYTOSIS SLIGHT
[2018-01-12] MEDS ORDERED: Albuterol 0.083% Inhal Sol (2.5 mg/3 mL) UD INH STA (15:01)
[2018-01-12] MEDS ORDERED: Albuterol-Ipratrop 3 mg / 0.5 (3 ml) UD ONE (15:28)
--- NOTE | 2018-01-12 17:14 | CP.PCM.CON ---
<Yamil Corona - Last Filed: 01/12/18 19:28> History of Present Illness - History of Present Illness History of Present Illness: ICU consult note CC "altered mental status" HPI: Patient is a 77 year old male with history of diastolic CHF, COPD, diverticulitis, HTN, peripheral edema, pneumonia who was sent in from snf for altered mental status. Patient reportedly had a fever. He was recently admitted here for urinary retention, shortness of breath, lower abdominal pain and was found to have UTI. Patient is unable to provide history, altered and agitated. PMH diastolic CHF, COPD, diverticulitis, HTN, peripheral edema, pneumonia PSH: none Allergies: NKDA Review of Systems - Review of Systems Systems not reviewed;Unavailable: Altered Mental Status Past Patient History - Past Medical History & Family History Past Medical History?: Yes - Past Social History Smoking Status: Former Smoker - CARDIAC Hx Congestive Heart Failure: Yes (DIASTOLIC CHF) Hx Hypertension: Yes Hx Peripheral Edema: Yes - PULMONARY Hx Chronic Obstructive Pulmonary Disease (COPD): Yes Hx Pneumonia: Yes (BRONCHOPNEUMONIA UNSPECIFIED ORGANISM(11/04/15)) - NEUROLOGICAL Hx Neurological Disorder: Yes Other/Comment: CERVICAL CORD COMPRESSION. CERVICAL STENOSIS. NEUROPATHY - HEENT Hx HEENT Problems: No - RENAL Hx Chronic Kidney Disease: No - ENDOCRINE/METABOLIC Hx Endocrine Disorders: No - HEMATOLOGICAL/ONCOLOGICAL Hx Blood Disorders: No - INTEGUMENTARY Hx Dermatological Problems: Yes Other/Comment: LEFT LOWER EXTREMITY CELLULITIS - MUSCULOSKELETAL/RHEUMATOLOGICAL Hx Musculoskeletal Disorders: Yes Hx Back Pain: Yes Hx Osteoarthritis: Yes Other/Comment: HX: CERVICAL CORD COMPRESSION. HX: CERVICAL STENOSIS. 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, THORACIC REGION - GASTROINTESTINAL Hx Diverticulitis: Yes - GENITOURINARY/GYNECOLOGICAL Hx Genitourinary Disorders: Yes Hx Bladder Stone: Yes Hx Hematuria: Yes Hx Urinary Tract Infection: Yes - PSYCHIATRIC Hx Substance Use: No - SURGICAL HISTORY Hx Surgeries: Yes Other/Comment: HX: FLEXIBLE CYSTOSCOPY(08/28/15) - ANESTHESIA Hx Anesthesia: Yes Hx Anesthesia Reactions: No Meds Allergies/Adverse Reactions: Allergies Allergy/AdvReac Type Severity Reaction Status Date / Time No Known Allergies Allergy Verified 01/13/18 01:29 - Medications Medications: Current Medications Norepinephrine Bitartrate 4 mg (/ Sodium Chloride) 254 mls @ 15.24 mls/hr IV .[id number] PRN; Protocol; 4 MCG/MIN PRN Reason: TITRATE PER MD ORDER Physical Exam - Constitutional Appears: Agitated, Confused - Head Exam Head Exam: ATRAUMATIC, NORMAL INSPECTION - Eye Exam Eye Exam: EOMI (Unable to follow commands, however moves eyes in all directions) - ENT Exam ENT Exam: Mucous Membranes Dry - Respiratory Exam Respiratory Exam: Decreased Breath Sounds. absent: Rales, Rhonchi, Wheezes - Cardiovascular Exam Cardiovascular Exam: Tachycardia (Intermittently goes into SVT with rate in 170s , then spontaneously drops down to 90s), +S1, +S2 - GI/Abdominal Exam GI & Abdominal Exam: Normal Bowel Sounds, Soft. absent: Distended, Guarding, Tenderness Additional comments: Olivares draining brown urine with sediment - Extremities Exam Additional comments: Left lower extremity edema noted. Unable to palpate dorsalis pedis pulses secondary to edema. Right lower extremity: Dorsalis pedis pulse noted. - Neurological Exam Additional comments: Agitated, altered. - Psychiatric Exam Psychiatric exam: Agitated - Skin Skin Exam: Dry, Intact, Warm Results - Vital Signs Recent Vital Signs: Last Vital Signs Temp 98.2 F 01/12/18 15:35 Pulse 104 H 01/12/18 17:04 Resp 22 01/12/18 17:04 BP 88/60 L 01/12/18 17:04 Pulse Ox 97 01/12/18 16:36 - Labs Result Diagrams: 01/12/18 13:05 01/12/18 13:05 Labs: Laboratory Results - last 24 hr 01/12/18 01/12/18 01/12/18 01:05 12:13 13:05 WBC 20.6 H D RBC 4.72 Hgb 12.3 Hct 37.9 MCV 80.4 D MCH 26.2 L MCHC 32.5 L RDW 16.8 H Plt Count 238 MPV 7.0 L Neut % (Auto) 83.9 H Lymph % (Auto) 6.9 L Linn % (Auto) 8.8 Eos % (Auto) 0.0 Baso % (Auto) 0.4 Neut # (Auto) 17.3 H Lymph # (Auto) 1.4 Linn # (Auto) 1.8 H Eos # (Auto) 0.0 Baso # (Auto) 0.1 Neutrophils % (Manual) 68 Band Neutrophils % 12 H* Lymphocytes % (Manual) 14 L Monocytes % (Manual) 6 Platelet Estimate Normal Anisocytosis (manual) Slight PT INR APTT pO2 51 VBG pH 7.37 VBG pCO2 62 H VBG HCO3 31.0 VBG Total CO2 37.7 H VBG O2 Sat (Calc) 88.5 H VBG Base Excess 8.2 H VBG Potassium 4.3 Sodium 132.0 Chloride 96.0 L Glucose 169 H Lactate 1.7 Potassium Carbon Dioxide Anion Gap BUN Creatinine Est GFR ( Amer) Est GFR (Non-Af Amer) POC Glucose (mg/dL) 168 H Random Glucose Calcium Phosphorus Magnesium Total Bilirubin AST ALT Alkaline Phosphatase Troponin I NT-Pro-B Natriuret Pep Total Protein Albumin Globulin Albumin/Globulin Ratio Lipase Venous Blood Potassium 4.3 Urine Color Urine Clarity Urine pH Ur Specific Ramsey Urine Protein Urine Glucose (UA) Urine Ketones Urine Blood Urine Nitrate Urine Bilirubin Urine Urobilinogen Ur Leukocyte Esterase Urine WBC (Auto) Urine RBC (Auto) Urine WBC Clumps (Auto) Ur Squamous Epith Cells Urine Bacteria 01/12/18 01/12/18 01/12/18 13:05 13:05 13:36 WBC RBC Hgb Hct MCV MCH MCHC RDW Plt Count MPV Neut % (Auto) Lymph % (Auto) Linn % (Auto) Eos % (Auto) Baso % (Auto) Neut # (Auto) Lymph # (Auto) Linn # (Auto) Eos # (Auto) Baso # (Auto) Neutrophils % (Manual) Band Neutrophils % Lymphocytes % (Manual) Monocytes % (Manual) Platelet Estimate Anisocytosis (manual) PT 14.2 H INR 1.3 APTT 31 pO2 VBG pH VBG pCO2 VBG HCO3 VBG Total CO2 VBG O2 Sat (Calc) VBG Base Excess VBG Potassium Sodium 134 Chloride 90 L Glucose Lactate Potassium 4.5 Carbon Dioxide 34 H Anion Gap 15 BUN 45 H Creatinine 2.0 H Est GFR ( Amer) 39 Est GFR (Non-Af Amer) 32 POC Glucose (mg/dL) Random Glucose 167 H Calcium 8.9 Phosphorus 5.3 H Magnesium 1.9 Total Bilirubin 1.2 AST 40 ALT 25 Alkaline Phosphatase 90 Troponin I 0.0340 NT-Pro-B Natriuret Pep 1370 H Total Protein 7.4 Albumin 3.7 Globulin 3.7 Albumin/Globulin Ratio 1.0 Lipase < 10 L Venous Blood Potassium Urine Color Yellow Urine Clarity Turbid Urine pH 8.0 Ur Specific Ramsey 1.011 Urine Protein 2+ H Urine Glucose (UA) Normal Urine Ketones Negative Urine Blood 2+ H Urine Nitrate Negative Urine Bilirubin Negative Urine Urobilinogen Normal Ur Leukocyte Esterase 3+ H Urine WBC (Auto) 1186 H Urine RBC (Auto) 80 H Urine WBC Clumps (Auto) Occ H Ur Squamous Epith Cells 4 Urine Bacteria Mod H Assessment & Plan - Assessment and Plan (Free Text) Assessment: 77 year old male with history of diastolic CHF, COPD, diverticulitis, HTN, peripheral edema, pneumonia who presented from snf for altered mental status. Patient was found to be hypotensive with leukocytosis. On arrival to ICU , patient was noted to be very agitated and in respiratory distress. Plan: Neuro: Altered mental status CT head Mild age related neuro degenerative changes are appreciated which appear age appropriate. No definite acute intracranial findings by standard CT criteria. Follow-up CT or MRI are available if clinically warranted. Sedated with Propofol drip Cardiovascular Tachycardic with SVT 170s occasionally goes down to SR in 90s hypotensive 98/60 Patient received Adenosine and Cardizem in ED. Hx of diastolic CHF proBNP 1370 Troponin 0.0340 NS IV fluids 1L ordered. Pulmonary VBG pH 7.37/pCO2 62/pO2 51/ HCO 31 CXR No interval pathology noted. Patient found to be in respiratory distress and intubated on arrival F/u Venous doppler of left lower extremity. f/u D-dimer ordered f/u ABG ordered. Consider CT angio to rule out PE GI Pepcid 20mg IV Renal BUN 45 Cr 2.0 NS 1L IV fluids I&Os Endo Maintain euglycemia ID White count 20.6 with bands 12 Febrile to 100.6 Received 2L NS IV fluids Lactate from vBG 1.7 Vancomycin 1g IV x1 Zosyn 2.25g IV Q8 UA 3+ LE, 2+ protein 2+ blood moderate bacteria WBC 1186 Blood, urine culture, MRSA screen sent. Heme/Onc H/H 12.3 37.9 PPX: Pepcid, Heparin Case discussed with Dr. Cannon <Juan C Cannon - Last Filed: 01/13/18 17:50> Meds - Medications Medications: Current Medications Famotidine (Pepcid) 20 mg IVP DAILY [facility] Last Admin: 01/13/18 09:28 Dose: 20 mg Heparin Sodium (Porcine) (Heparin) 5,000 units SC Q8 [facility] Last Admin: 01/13/18 14:42 Dose: Not Given Norepinephrine Bitartrate 4 mg (/ Sodium Chloride) 254 mls @ 15.24 mls/hr IV .[id number] PRN; Protocol; 4 MCG/MIN PRN Reason: TITRATE PER MD ORDER Last Titration: 01/13/18 16:30 Dose: 7 mcg/min, 26.67 mls/hr Propofol (Diprivan) 1,000 mg in 100 mls @ 2.776 mls/hr IV .Q24H PRN; Protocol; 5 MCG/KG/MIN PRN Reason: Agitation Last Admin: 01/13/18 12:40 Dose: 30 mcg/kg/min, 16.656 mls/hr Sodium Chloride (Sodium Chloride 0.9%) 1,000 mls @ 70 mls/hr IV .[id number] [facility] Last Admin: 01/13/18 10:26 Dose: 70 mls/hr Meropenem 1 gm/ Sodium (Chloride) 100 mls @ 100 mls/hr IVPB Q12H JOJO PRN Reason: Protocol Last Admin: 01/13/18 16:19 Dose: 100 mls/hr Heparin Sodium/Sodium Chloride (Heparin 32871 Units/250ml 1/2 Normal Saline) 25 ,000 units in 250 mls @ 16.248 mls/hr IV .[id number] PRN; Protocol; 18 UNITS/KG/HR PRN Reason: PROTOCOL Last Admin: 01/13/18 16:12 Dose: 18 units/kg/hr, 16.248 mls/hr Amiodarone HCl 900 mg/ (Dextrose) 500 mls @ 33.33 mls/hr IV .Q15H1M ONE; 1 MG/ MIN PRN Reason: Protocol Stop: 01/14/18 06:28 Last Admin: 01/13/18 16:06 Dose: 33.33 mls/hr Amiodarone HCl 900 mg/ (Dextrose) 500 mls @ 16.66 mls/hr IV .Q24H ONE; 0.5 MG/ MIN PRN Reason: Protocol Stop: 09/06/18 21:29 Aztreonam 1 gm/ Sodium (Chloride) 100 mls @ 200 mls/hr IVPB Q8H JOJO PRN Reason: Protocol Last Admin: 01/13/18 17:47 Dose: 200 mls/hr Ipratropium [place] (Atrovent) 0.5 mg IH RQ6 PRN PRN Reason: Shortness of Breath Metoprolol Tartrate (Lopressor) 2.5 mg IVP Q6 [facility] Last Admin: 01/13/18 12:29 Dose: Not Given Pneumococcal Polyvalent Vaccine (Pneumovax 23 Vaccine) 0.5 ml IM .ONCE ONE Stop: 01/14/18 10:01 Results - Vital Signs Recent Vital Signs: Last Vital Signs Temp 100.0 F H 01/13/18 16:00 Pulse 174 H 01/13/18 17:00 Resp 24 01/13/18 17:00 BP 102/67 01/13/18 17:00 Pulse Ox 95 01/13/18 17:00 - Labs Result Diagrams: 01/13/18 05:54 01/13/18 05:54 Labs: Laboratory Results - last 24 hr 01/12/18 01/12/18 01/13/18 20:00 20:20 04:25 WBC RBC Hgb Hct MCV MCH MCHC RDW Plt Count MPV Neut % (Auto) Lymph % (Auto) Linn % (Auto) Eos % (Auto) Baso % (Auto) Neut # (Auto) Lymph # (Auto) Linn # (Auto) Eos # (Auto) Baso # (Auto) Neutrophils % (Manual) Band Neutrophils % Lymphocytes % (Manual) Monocytes % (Manual) Platelet Estimate Large Platelets Hypochromasia (manual) Poikilocytosis (manual Anisocytosis (manual) Target Cells PT INR APTT D-Dimer, Quantitative 3655 H Puncture Site Rba Rb pCO2 58 H 32 L pO2 143 H 146 H HCO3 24.5 26.0 ABG pH 7.28 L 7.49 H ABG Total CO2 29.1 H 25.4 ABG O2 Saturation 98.9 H 98.2 H ABG Base Excess -0.6 1.4 ABG Hemoglobin 10.6 L ABG Carboxyhemoglobin 0.8 POC ABG HHb (Measured) 1.7 ABG Methemoglobin 2.3 Aníbal Test Pos Na ABG Potassium 4.2 A-a O2 Difference 212.0 242.0 Respiratory Index 1.5 1.7 Hgb O2 Saturation 95.2 Sodium 138.0 Chloride 103.0 Glucose 139 H Lactate 3.2 H Vent Mode Prvc Prvc Mechanical Rate 16 20 FiO2 60.0 60.0 Tidal Volume 500 500 PEEP 5 5 Potassium Carbon Dioxide Anion Gap BUN Creatinine Est GFR ( Amer) Est GFR (Non-Af Amer) Random Glucose Calcium Phosphorus Magnesium Total Bilirubin AST ALT Alkaline Phosphatase Total Protein Albumin Globulin Albumin/Globulin Ratio Arterial Blood Potassium 4.2 01/13/18 01/13/18 01/13/18 05:54 05:54 15:13 WBC 19.4 H RBC 3.97 L Hgb 10.3 L D Hct 32.5 L MCV 81.8 MCH 25.8 L MCHC 31.6 L RDW 17.0 H Plt Count 196 MPV 7.3 Neut % (Auto) 89.2 H Lymph % (Auto) 3.9 L Linn % (Auto) 6.9 Eos % (Auto) 0.0 Baso % (Auto) 0.0 Neut # (Auto) 17.3 H Lymph # (Auto) 0.8 L Linn # (Auto) 1.3 H Eos # (Auto) 0.0 Baso # (Auto) 0.0 Neutrophils % (Manual) 81 H Band Neutrophils % 11 H* Lymphocytes % (Manual) 3 L Monocytes % (Manual) 5 Platelet Estimate Normal Large Platelets Present Hypochromasia (manual) Slight Poikilocytosis (manual Slight Anisocytosis (manual) Slight Target Cells Slight PT 15.7 H INR 1.4 APTT 33 D-Dimer, Quantitative Puncture Site pCO2 pO2 HCO3 ABG pH ABG Total CO2 ABG O2 Saturation ABG Base Excess ABG Hemoglobin ABG Carboxyhemoglobin POC ABG HHb (Measured) ABG Methemoglobin Aníbal Test ABG Potassium A-a O2 Difference Respiratory Index Hgb O2 Saturation Sodium 139 Chloride 103 Glucose Lactate Vent Mode Mechanical Rate FiO2 Tidal Volume PEEP Potassium 3.5 L Carbon Dioxide 29 Anion Gap 10 BUN 38 H Creatinine 1.4 Est GFR ( Amer) 59 Est GFR (Non-Af Amer) 49 Random Glucose 124 H Calcium 7.5 L Phosphorus 3.1 Magnesium 1.8 Total Bilirubin 0.6 AST 30 ALT 27 Alkaline Phosphatase 71 Total Protein 5.6 L Albumin 2.7 L D Globulin 2.9 Albumin/Globulin Ratio 0.9 L Arterial Blood Potassium Attending/Attestation - Attestation I have personally seen and examined this patient.: Yes I have fully participated in the care of the patient.: Yes I have reviewed all pertinent clinical information: Yes Notes (Text): patient seen and examined 77-year-old male admitted to intensive care unit for severe sepsis/hypotension/ SVT Started on IV antibiotics for possible urinary tract infection Venous Doppler of lower extremities and CT angios of chest Patient got intubated for respiratory distress and put on ventilatory support Nebulizer treatment, IV sedation and IV fluids Cardiology evaluation
[2018-01-12] MEDS ORDERED: Piperacill/Tazo 2.25gm in Dex 2.25 GM/50 ML BAG IVPB SCH (19:00)
[2018-01-12] MEDS ORDERED: Ipratropium 0.02% Inhal Soln (0.5 mg/2.5 ml) UD IH PRN (19:03)
[2018-01-12] MEDS: Propofol 10 mg/ml 1,000 MG/100 ML VIAL IV PRN (19:30)
--- NOTE | 2018-01-12 19:31 | CP.PCM.HP ---
History of Present Illness - History of Present Illness History of Present Illness: 77-year-old male with PMH of CHF, COPD, HTN, peripheral edema, diverticulitis comes to ED from [facility] for evaluation of EMS. Patient was reportedly seen normal yesterday. As per [facility] records patient had a fever. No further history available. Present on Admission - Present on Admission Any Indicators Present on Admission: No Past Patient History - Past Medical History & Family History Past Medical History?: Yes - Past Social History Smoking Status: Former Smoker - CARDIAC Hx Congestive Heart Failure: Yes (DIASTOLIC CHF) Hx Hypertension: Yes Hx Peripheral Edema: Yes - PULMONARY Hx Chronic Obstructive Pulmonary Disease (COPD): Yes Hx Pneumonia: Yes (BRONCHOPNEUMONIA UNSPECIFIED ORGANISM(11/04/15)) - NEUROLOGICAL Hx Neurological Disorder: Yes Other/Comment: CERVICAL CORD COMPRESSION. CERVICAL STENOSIS. NEUROPATHY - HEENT Hx HEENT Problems: No - RENAL Hx Chronic Kidney Disease: No - ENDOCRINE/METABOLIC Hx Endocrine Disorders: No - HEMATOLOGICAL/ONCOLOGICAL Hx Blood Disorders: No - INTEGUMENTARY Hx Dermatological Problems: Yes Other/Comment: LEFT LOWER EXTREMITY CELLULITIS - MUSCULOSKELETAL/RHEUMATOLOGICAL Hx Musculoskeletal Disorders: Yes Hx Back Pain: Yes Hx Osteoarthritis: Yes Other/Comment: HX: CERVICAL CORD COMPRESSION. HX: CERVICAL STENOSIS. 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, THORACIC REGION - GASTROINTESTINAL Hx Diverticulitis: Yes - GENITOURINARY/GYNECOLOGICAL Hx Genitourinary Disorders: Yes Hx Bladder Stone: Yes Hx Hematuria: Yes Hx Urinary Tract Infection: Yes - PSYCHIATRIC Hx Substance Use: No - SURGICAL HISTORY Hx Surgeries: Yes Other/Comment: HX: FLEXIBLE CYSTOSCOPY(08/28/15) - ANESTHESIA Hx Anesthesia: Yes Hx Anesthesia Reactions: No Meds Allergies/Adverse Reactions: Allergies Allergy/AdvReac Type Severity Reaction Status Date / Time No Known Allergies Allergy Verified 01/13/18 01:29 Physical Exam - Constitutional Appears: Well - Head Exam Head Exam: ATRAUMATIC, NORMAL INSPECTION, NORMOCEPHALIC - Eye Exam Eye Exam: EOMI, Normal appearance, PERRL Pupil Exam: NORMAL ACCOMODATION, PERRL - ENT Exam ENT Exam: Mucous Membranes Moist, Normal Exam - Neck Exam Neck exam: Positive for: Normal Inspection - Respiratory Exam Respiratory Exam: Decreased Breath Sounds - Cardiovascular Exam Cardiovascular Exam: REGULAR RHYTHM, +S1, +S2 - GI/Abdominal Exam GI & Abdominal Exam: Diminished Bowel Sounds, Soft - Rectal Exam Rectal Exam: Deferred Results - Vital Signs Recent Vital Signs: Last Vital Signs Temp 98.8 F 01/12/18 17:55 Pulse 76 01/12/18 18:23 Resp 22 01/12/18 18:23 BP 101/54 L 01/12/18 18:23 Pulse Ox 94 L 01/12/18 18:23 - Labs Result Diagrams: 01/13/18 05:54 01/13/18 05:54 Labs: Laboratory Results - last 24 hr 01/12/18 01/12/18 01/12/18 01:05 12:13 13:05 WBC 20.6 H D RBC 4.72 Hgb 12.3 Hct 37.9 MCV 80.4 D MCH 26.2 L MCHC 32.5 L RDW 16.8 H Plt Count 238 MPV 7.0 L Neut % (Auto) 83.9 H Lymph % (Auto) 6.9 L [place] % (Auto) 8.8 Eos % (Auto) 0.0 Baso % (Auto) 0.4 Neut # (Auto) 17.3 H Lymph # (Auto) 1.4 [place] # (Auto) 1.8 H Eos # (Auto) 0.0 Baso # (Auto) 0.1 Neutrophils % (Manual) 68 Band Neutrophils % 12 H* Lymphocytes % (Manual) 14 L Monocytes % (Manual) 6 Platelet Estimate Normal Anisocytosis (manual) Slight PT INR APTT pO2 51 VBG pH 7.37 VBG pCO2 62 H VBG HCO3 31.0 VBG Total CO2 37.7 H VBG O2 Sat (Calc) 88.5 H VBG Base Excess 8.2 H VBG Potassium 4.3 Sodium 132.0 Chloride 96.0 L Glucose 169 H Lactate 1.7 Potassium Carbon Dioxide Anion Gap BUN Creatinine Est GFR ( Amer) Est GFR (Non-Af Amer) POC Glucose (mg/dL) 168 H Random Glucose Calcium Phosphorus Magnesium Total Bilirubin AST ALT Alkaline Phosphatase Troponin I NT-Pro-B Natriuret Pep Total Protein Albumin Globulin Albumin/Globulin Ratio Lipase Venous Blood Potassium 4.3 Urine Color Urine Clarity Urine pH Ur Specific [place] Urine Protein Urine Glucose (UA) Urine Ketones Urine Blood Urine Nitrate Urine Bilirubin Urine Urobilinogen Ur Leukocyte Esterase Urine WBC (Auto) Urine RBC (Auto) Urine WBC Clumps (Auto) Ur Squamous Epith Cells Urine Bacteria 01/12/18 01/12/18 01/12/18 13:05 13:05 13:36 WBC RBC Hgb Hct MCV MCH MCHC RDW Plt Count MPV Neut % (Auto) Lymph % (Auto) [place] % (Auto) Eos % (Auto) Baso % (Auto) Neut # (Auto) Lymph # (Auto) [place] # (Auto) Eos # (Auto) Baso # (Auto) Neutrophils % (Manual) Band Neutrophils % Lymphocytes % (Manual) Monocytes % (Manual) Platelet Estimate Anisocytosis (manual) PT 14.2 H INR 1.3 APTT 31 pO2 VBG pH VBG pCO2 VBG HCO3 VBG Total CO2 VBG O2 Sat (Calc) VBG Base Excess VBG Potassium Sodium 134 Chloride 90 L Glucose Lactate Potassium 4.5 Carbon Dioxide 34 H Anion Gap 15 BUN 45 H Creatinine 2.0 H Est GFR ( Amer) 39 Est GFR (Non-Af Amer) 32 POC Glucose (mg/dL) Random Glucose 167 H Calcium 8.9 Phosphorus 5.3 H Magnesium 1.9 Total Bilirubin 1.2 AST 40 ALT 25 Alkaline Phosphatase 90 Troponin I 0.0340 NT-Pro-B Natriuret Pep 1370 H Total Protein 7.4 Albumin 3.7 Globulin 3.7 Albumin/Globulin Ratio 1.0 Lipase < 10 L Venous Blood Potassium Urine Color Yellow Urine Clarity Turbid Urine pH 8.0 Ur Specific [place] 1.011 Urine Protein 2+ H Urine Glucose (UA) Normal Urine Ketones Negative Urine Blood 2+ H Urine Nitrate Negative Urine Bilirubin Negative Urine Urobilinogen Normal Ur Leukocyte Esterase 3+ H Urine WBC (Auto) 1186 H Urine RBC (Auto) 80 H Urine WBC Clumps (Auto) Occ H Ur Squamous Epith Cells 4 Urine Bacteria Mod H Assessment & Plan (1) Atrial fibrillation Status: Acute (2) Fever Status: Acute (3) Mental status alteration Status: Acute (4) UTI (urinary tract infection) Status: Acute (5) BPH (benign prostatic hyperplasia) Status: Acute (6) COPD (chronic obstructive pulmonary disease) Status: Acute (7) Congestive heart failure (CHF) Status: Acute (8) GERD (gastroesophageal reflux disease) Status: Acute (9) Hematuria Status: Acute (10) Hypertension Status: Acute (11) Pneumonia Status: Acute (12) Urinary retention Status: Acute - Assessment and Plan (Free Text) Plan: Patient seen and examined bedside EKG showing sinus rhythm, no ST-T wave changes, history of diastolic CHF Chest x-ray showing no acute pathology D-dimer, ABG Labs CT head without [id number] neurologic degenerative changes. No definite of acute intracranial findings UA Urine culture Blood culture IV fluids Cefepime 2 g IV cardio consult GI and DVT prophylaxis
[2018-01-12] MEDS: Piperacill/Tazo 2.25gm in Dex 2.25 GM/50 ML BAG IVPB SCH (19:49)
[2018-01-12 20:11] LABS: ABG ALLEN TEST POS; ARTERIAL BLOOD GAS HCO3 24.5 mmol/L (21-28); ARTERIAL BLOOD GAS O2 SAT 98.9 % (95-98); ARTERIAL BLOOD GAS PCO2 58 mm/Hg (35-45); ARTERIAL BLOOD GAS PH 7.28 (7.35-7.45); ARTERIAL BLOOD GAS PO2 143 mm/Hg (80-100); ARTERIAL BLOOD GAS TCO2 29.1 mmol/L (22-28)
[2018-01-12] MEDS ORDERED: Vancomycin 1 gm/NS 200 ml 1 GM/200 ML BAG IVPB ONE (20:30)
[2018-01-12] MEDS: Sodium Chloride 0.9% 1,000 ML IV SCH (20:45)
--- NOTE | 2018-01-12 22:07 | PCM.PROC ---
Procedures Attestation:: I certify that I have explained the specified Operation(s) or Procedure(s), risks, benefits and reasonable alternatives to the Patient and/or other person responsible. The opportunity was given to ask questions and all questions answered - Central Line Placement Right Femoral Aseptic technique was employed throughout the procedure: Full sterile barriers ( mask, hair cover, sterile gown, sterile gloves), Full body sterile drape, Chloraprep Antiseptic: 2 minute prep for Femoral CVP Time Out Performed: Yes Pt. Placed on Pulse Ox Monitor: Yes Central Line Prep: Povidone-Iodine 1% Local Anesthesia Used: Lidocaine 1% Amount of Anesthesia Used (mls): 5 Ultrasound Used for Placement: No Central Line Lumen Inserted: triple Central Line Length: 20 cm Post Procedure: Sutured in Place, Good Blood Return, All Ports Aspirated, Flushed, Capped, Sterile Dressing Applied Secured by: Suture Post procedure dressing: Chlorhexidine disc (Biopatch) Post Procedure X-Ray: No Patient Tolerated Procedure: Well Immediate Complications: None
--- NOTE | 2018-01-12 22:10 | PCM.PROC ---
Procedures Attestation:: I certify that I have explained the specified Operation(s) or Procedure(s), risks, benefits and reasonable alternatives to the Patient and/or other person responsible. The opportunity was given to ask questions and all questions answered - Central Line Placement Right Femoral Triple Lumen Catheter Aseptic technique was employed throughout the procedure: Hand Hygiene done prior to procedure, Full sterile barriers (mask, hair cover, sterile gown, sterile gloves), Full body sterile drape, Chloraprep Antiseptic: 2 minute prep for Femoral Pt. Placed on Pulse Ox Monitor: Yes Central Line Prep: Povidone-Iodine 1% Local Anesthesia Used: Lidocaine 1% Amount of Anesthesia Used (mls): 5 Ultrasound Used for Placement: No Central Line Lumen Inserted: triple Central Line Length: 20 cm Post Procedure: Sutured in Place, Good Blood Return, All Ports Aspirated, Flushed, Capped, Sterile Dressing Applied Secured by: Suture Post procedure dressing: Chlorhexidine disc (Biopatch) Post Procedure X-Ray: No Patient Tolerated Procedure: Well Immediate Complications: None
--- NOTE | 2018-01-12 22:38 | CP.PCM.CON ---
History of Present Illness - History of Present Illness History of Present Illness: 77 M with hx dementia admitted for hypotension A Fib /RVR Possible sepsis Past Patient History - Past Medical History & Family History Past Medical History?: Yes - Past Social History Smoking Status: Former Smoker - CARDIAC Hx Congestive Heart Failure: Yes (DIASTOLIC CHF) Hx Hypertension: Yes Hx Peripheral Edema: Yes - PULMONARY Hx Chronic Obstructive Pulmonary Disease (COPD): Yes Hx Pneumonia: Yes (BRONCHOPNEUMONIA UNSPECIFIED ORGANISM(11/04/15)) - NEUROLOGICAL Hx Neurological Disorder: Yes Other/Comment: CERVICAL CORD COMPRESSION. CERVICAL STENOSIS. NEUROPATHY - HEENT Hx HEENT Problems: No - RENAL Hx Chronic Kidney Disease: No - ENDOCRINE/METABOLIC Hx Endocrine Disorders: No - HEMATOLOGICAL/ONCOLOGICAL Hx Blood Disorders: No - INTEGUMENTARY Hx Dermatological Problems: Yes Other/Comment: LEFT LOWER EXTREMITY CELLULITIS - MUSCULOSKELETAL/RHEUMATOLOGICAL Hx Musculoskeletal Disorders: Yes Hx Back Pain: Yes Hx Osteoarthritis: Yes Other/Comment: HX: CERVICAL CORD COMPRESSION. HX: CERVICAL STENOSIS. 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, THORACIC REGION - GASTROINTESTINAL Hx Diverticulitis: Yes - GENITOURINARY/GYNECOLOGICAL Hx Genitourinary Disorders: Yes Hx Bladder Stone: Yes Hx Hematuria: Yes Hx Urinary Tract Infection: Yes - PSYCHIATRIC Hx Substance Use: No - SURGICAL HISTORY Hx Surgeries: Yes Other/Comment: HX: FLEXIBLE CYSTOSCOPY(08/28/15) - ANESTHESIA Hx Anesthesia: Yes Hx Anesthesia Reactions: No Meds Allergies/Adverse Reactions: Allergies Allergy/AdvReac Type Severity Reaction Status Date / Time No Known Allergies Allergy Verified 08/22/15 07:30 - Medications Medications: Current Medications Famotidine (Pepcid) 20 mg IVP DAILY [facility] Heparin Sodium (Porcine) (Heparin) 5,000 units SC Q8 [facility] Last Admin: 01/12/18 22:13 Dose: 5,000 units Norepinephrine Bitartrate 4 mg (/ Sodium Chloride) 254 mls @ 15.24 mls/hr IV .[id number] PRN; Protocol; 4 MCG/MIN PRN Reason: TITRATE PER MD ORDER Last Titration: 01/12/18 20:15 Dose: 5 mcg/min, 19.05 mls/hr Propofol (Diprivan) 1,000 mg in 100 mls @ 2.776 mls/hr IV .Q24H PRN; Protocol; 5 MCG/KG/MIN PRN Reason: Agitation Last Titration: 01/12/18 20:00 Dose: 20 mcg/kg/min, 11.104 mls/hr Piperacillin Sod/Tazobactam Sod (Zosyn 2.25 Gm Iv Premix) 2.25 gm in 50 mls @ 100 mls/hr IVPB Q6H JOJO PRN Reason: Protocol Last Admin: 01/12/18 19:49 Dose: 100 mls/hr Sodium Chloride (Sodium Chloride 0.9%) 1,000 mls @ 200 mls/hr IV .Q5H JOJO Last Admin: 01/12/18 20:45 Dose: 200 mls/hr Ipratropium [place] (Atrovent) 0.5 mg IH RQ6 PRN PRN Reason: Shortness of Breath Results - Vital Signs Recent Vital Signs: Last Vital Signs Temp 98.8 F 01/12/18 17:55 Pulse 88 01/12/18 20:00 Resp 17 01/12/18 20:00 BP 66/42 L 01/12/18 20:00 Pulse Ox 100 01/12/18 20:00 - Labs Result Diagrams: 01/12/18 13:05 01/12/18 13:05 Labs: Laboratory Results - last 24 hr 01/12/18 01/12/18 01/12/18 01:05 12:13 13:05 WBC 20.6 H D RBC 4.72 Hgb 12.3 Hct 37.9 MCV 80.4 D MCH 26.2 L MCHC 32.5 L RDW 16.8 H Plt Count 238 MPV 7.0 L Neut % (Auto) 83.9 H Lymph % (Auto) 6.9 L [place] % (Auto) 8.8 Eos % (Auto) 0.0 Baso % (Auto) 0.4 Neut # (Auto) 17.3 H Lymph # (Auto) 1.4 [place] # (Auto) 1.8 H Eos # (Auto) 0.0 Baso # (Auto) 0.1 Neutrophils % (Manual) 68 Band Neutrophils % 12 H* Lymphocytes % (Manual) 14 L Monocytes % (Manual) 6 Platelet Estimate Normal Anisocytosis (manual) Slight PT INR APTT D-Dimer, Quantitative Puncture Site pCO2 pO2 51 HCO3 ABG pH ABG Total CO2 ABG O2 Saturation ABG Base Excess Aníbal Test ABG Potassium VBG pH 7.37 VBG pCO2 62 H VBG HCO3 31.0 VBG Total CO2 37.7 H VBG O2 Sat (Calc) 88.5 H VBG Base Excess 8.2 H VBG Potassium 4.3 A-a O2 Difference Respiratory Index Sodium 132.0 Chloride 96.0 L Glucose 169 H Lactate 1.7 Vent Mode Mechanical Rate FiO2 Tidal Volume PEEP Potassium Carbon Dioxide Anion Gap BUN Creatinine Est GFR ( Amer) Est GFR (Non-Af Amer) POC Glucose (mg/dL) 168 H Random Glucose Calcium Phosphorus Magnesium Total Bilirubin AST ALT Alkaline Phosphatase Troponin I NT-Pro-B Natriuret Pep Total Protein Albumin Globulin Albumin/Globulin Ratio Lipase Arterial Blood Potassium Venous Blood Potassium 4.3 Urine Color Urine Clarity Urine pH Ur Specific [place] Urine Protein Urine Glucose (UA) Urine Ketones Urine Blood Urine Nitrate Urine Bilirubin Urine Urobilinogen Ur Leukocyte Esterase Urine WBC (Auto) Urine RBC (Auto) Urine WBC Clumps (Auto) Ur Squamous Epith Cells Urine Bacteria 01/12/18 01/12/18 01/12/18 13:05 13:05 13:36 WBC RBC Hgb Hct MCV MCH MCHC RDW Plt Count MPV Neut % (Auto) Lymph % (Auto) [place] % (Auto) Eos % (Auto) Baso % (Auto) Neut # (Auto) Lymph # (Auto) [place] # (Auto) Eos # (Auto) Baso # (Auto) Neutrophils % (Manual) Band Neutrophils % Lymphocytes % (Manual) Monocytes % (Manual) Platelet Estimate Anisocytosis (manual) PT 14.2 H INR 1.3 APTT 31 D-Dimer, Quantitative Puncture Site pCO2 pO2 HCO3 ABG pH ABG Total CO2 ABG O2 Saturation ABG Base Excess Aníbal Test ABG Potassium VBG pH VBG pCO2 VBG HCO3 VBG Total CO2 VBG O2 Sat (Calc) VBG Base Excess VBG Potassium A-a O2 Difference Respiratory Index Sodium 134 Chloride 90 L Glucose Lactate Vent Mode Mechanical Rate FiO2 Tidal Volume PEEP Potassium 4.5 Carbon Dioxide 34 H Anion Gap 15 BUN 45 H Creatinine 2.0 H Est GFR ( Amer) 39 Est GFR (Non-Af Amer) 32 POC Glucose (mg/dL) Random Glucose 167 H Calcium 8.9 Phosphorus 5.3 H Magnesium 1.9 Total Bilirubin 1.2 AST 40 ALT 25 Alkaline Phosphatase 90 Troponin I 0.0340 NT-Pro-B Natriuret Pep 1370 H Total Protein 7.4 Albumin 3.7 Globulin 3.7 Albumin/Globulin Ratio 1.0 Lipase < 10 L Arterial Blood Potassium Venous Blood Potassium Urine Color Yellow Urine Clarity Turbid Urine pH 8.0 Ur Specific [place] 1.011 Urine Protein 2+ H Urine Glucose (UA) Normal Urine Ketones Negative Urine Blood 2+ H Urine Nitrate Negative Urine Bilirubin Negative Urine Urobilinogen Normal Ur Leukocyte Esterase 3+ H Urine WBC (Auto) 1186 H Urine RBC (Auto) 80 H Urine WBC Clumps (Auto) Occ H Ur Squamous Epith Cells 4 Urine Bacteria Mod H 01/12/18 01/12/18 20:00 20:20 WBC RBC Hgb Hct MCV MCH MCHC RDW Plt Count MPV Neut % (Auto) Lymph % (Auto) [place] % (Auto) Eos % (Auto) Baso % (Auto) Neut # (Auto) Lymph # (Auto) [place] # (Auto) Eos # (Auto) Baso # (Auto) Neutrophils % (Manual) Band Neutrophils % Lymphocytes % (Manual) Monocytes % (Manual) Platelet Estimate Anisocytosis (manual) PT INR APTT D-Dimer, Quantitative 3655 H Puncture Site Rba pCO2 58 H pO2 143 H HCO3 24.5 ABG pH 7.28 L ABG Total CO2 29.1 H ABG O2 Saturation 98.9 H ABG Base Excess -0.6 Aníbal Test Pos ABG Potassium 4.2 VBG pH VBG pCO2 VBG HCO3 VBG Total CO2 VBG O2 Sat (Calc) VBG Base Excess VBG Potassium A-a O2 Difference 212.0 Respiratory Index 1.5 Sodium 138.0 Chloride 103.0 Glucose 139 H Lactate 3.2 H Vent Mode Prvc Mechanical Rate 16 FiO2 60.0 Tidal Volume 500 PEEP 5 Potassium Carbon Dioxide Anion Gap BUN Creatinine Est GFR ( Amer) Est GFR (Non-Af Amer) POC Glucose (mg/dL) Random Glucose Calcium Phosphorus Magnesium Total Bilirubin AST ALT Alkaline Phosphatase Troponin I NT-Pro-B Natriuret Pep Total Protein Albumin Globulin Albumin/Globulin Ratio Lipase Arterial Blood Potassium 4.2 Venous Blood Potassium Urine Color Urine Clarity Urine pH Ur Specific [place] Urine Protein Urine Glucose (UA) Urine Ketones Urine Blood Urine Nitrate Urine Bilirubin Urine Urobilinogen Ur Leukocyte Esterase Urine WBC (Auto) Urine RBC (Auto) Urine WBC Clumps (Auto) Ur Squamous Epith Cells Urine Bacteria
[2018-01-13] MEDS: Propofol 10 mg/ml 1,000 MG/100 ML VIAL IV PRN ×4 (00:30→18:24)
[2018-01-13] MEDS: Piperacill/Tazo 2.25gm in Dex 2.25 GM/50 ML BAG IVPB SCH ×3 (01:25→17:48)
[2018-01-13] MEDS: Sodium Chloride 0.9% 1,000 ML IV SCH ×3 (01:45→10:26)
[2018-01-13 04:31] LABS: ARTERIAL BLOOD GAS HEMOGLOBIN 10.6 g/dL (11.7-17.4); ARTERIAL BLOOD GAS O2 SAT 98.2 % (95-98); ARTERIAL BLOOD GAS PCO2 32 mm/Hg (35-45); ARTERIAL BLOOD GAS PH 7.49 (7.35-7.45); ARTERIAL BLOOD GAS PO2 146 mm/Hg (80-100); ARTERIAL BLOOD GAS TCO2 25.4 mmol/L (22-28)
[2018-01-13 05:59] LABS: LYMPH # 0.8 K/uL (1.0-4.3); LYMPH % 3.9 % (20.0-40.0); MEAN CELL VOLUME 81.8 fL (80.0-94.0); MEAN CORPUSCULAR HEMOGLOBIN 25.8 pg (27.0-31.0); MEAN CORPUSCULAR HGB CONC 31.6 g/dL (33.0-37.0); MEAN PLATELET VOLUME 7.3 fL (7.2-11.7); MONO # 1.3 K/uL (0.0-0.8); MONO % 6.9 % (0.0-10.0); NEUT # 17.3 K/uL (1.8-7.0); NEUT % 89.2 % (50.0-75.0); PLATELET COUNT 196 K/uL (130-400); RBC 3.97 Mil/uL (4.40-5.90); WHITE BLOOD COUNT 19.4 K/uL (4.8-10.8)
[2018-01-13] MEDS ORDERED: Metoprolol 1 mg/ml Inj IVP ONE ×5 (06:00→18:30)
[2018-01-13 06:18] LABS: HEMOGLOBIN 10.3 g/dL (12.0-18.0)
[2018-01-13] MEDS ORDERED: Digoxin 500 mcg/2ml (0.5 mg/2ml) Inj IVP ONE (06:18)
[2018-01-13 06:28] LABS: ALB/GLOB RATIO 0.9 (1.0-2.1); ALBUMIN 2.7 g/dL (3.5-5.0); CALCIUM 7.5 mg/dl (8.6-10.4)
[2018-01-13 06:34] VITALS: PULSE 86
--- NOTE | 2018-01-13 07:54 | RAD ---
Date of service: 01/13/2018 HISTORY: respiratory distress COMPARISON: Portable chest 01/12/2018. FINDINGS: LUNGS: Endotracheal tube is unchanged in position with external pacer now in position at the inferior left chest. No right-sided infiltrate. Left basilar atelectasis is difficult to exclude versus pneumonia with trace of pleural effusion suspected. No pneumothorax bilaterally. No pulmonary vascular congestion. Cardiac silhouette stable. PLEURA: As above. CARDIOVASCULAR: As above. OSSEOUS STRUCTURES: Incidental cervical spinal fusion hardware reiterated. VISUALIZED UPPER ABDOMEN: Normal. OTHER FINDINGS: None. IMPRESSION: Small pleural effusion is questioned with left basilar airspace disease difficult to exclude. Exam otherwise stable in the interval.
--- NOTE | 2018-01-13 08:16 | CP.PCM.PCO ---
Additional Comments - Additional Comments Additional Comments: Regular narrow complex tachycardia in 180's, prior episodes of same, patient on vent, levophed 4mcg, diprivan for sedatio, temp 100.5 rectal bp 97/50, due to hypotension trial of 50 J synchronized shock given with briefly converted rhythm to sinus then again fast rhythm in 180's. Patient now given metoprol 2.5 mg iv, in about 5 mins converted to sinus and maintained. Metoprolol ordered scheduled with parameters and single dose of digoxin given. Patient is being w/ u for resp failure, sepsis by ICU/primary team.
--- NOTE | 2018-01-13 08:17 | RAD ---
Date of service: 01/12/2018 HISTORY: post intubation COMPARISON: 01/12/2018. FINDINGS: Endotracheal tube terminates 1.5 cm proximal to the ze. LUNGS: The lungs are well inflated. There is patchy airspace disease in the right lower lobe. There is mild pulmonary venous congestion. PLEURA: No significant pleural effusion identified, no pneumothorax apparent. CARDIOVASCULAR: Mild cardiomegaly. OSSEOUS STRUCTURES: Within normal limits for the patient's age. Stable appearance of hardware in the lower cervical spine. VISUALIZED UPPER ABDOMEN: Normal. OTHER FINDINGS: None. IMPRESSION: Endotracheal tube terminates 1.5 cm proximal to the ze. Airspace disease in the right lower lobe may represent atelectasis or pneumonia. Follow-up is advised.
[2018-01-13 08:38] LABS: ANISOCYTOSIS SLIGHT; BANDS 11 % (0-2); HYPOCHROMIC SLIGHT; LYMPHOCYTE 3 % (20-40); MONOCYTE 5 % (0-10); NEUTROPHIL 81 % (50-75); PLATELET ESTIMATE NORMAL (NORMAL); POIKILOCYTOSIS SLIGHT; TOTAL CELLS COUNTED 100
[2018-01-13 08:39] LABS: LARGE PLATELETS PRESENT; TARGET CELLS SLIGHT
--- NOTE | 2018-01-13 10:06 | CP.CCUPN ---
<Yamil Corona - Last Filed: 01/13/18 16:26> CCU Subjective - Physician Review Subjective (Free Text): 01/13/18 11:33 ICU Progress note Patient seen and examined at bedside. Patient is sedated and intubated. Unable to provide history. CCU Objective - Vital Signs / Intake & Output Vital Signs (Last 4 hours): Vital Signs Temp Pulse Resp BP Pulse Ox 01/13/18 09:00 85 20 98/50 L 99 01/13/18 08:30 97 H 18 93/54 L 01/13/18 08:00 98.9 F 71 20 130/83 100 01/13/18 07:30 77 20 109/76 100 01/13/18 07:00 80 20 104/68 01/13/18 06:31 86 21 89/58 L 01/13/18 06:10 92 H 20 109/52 L Intake and Output (Last 8hrs): Intake & Output 01/12/18 01/13/18 01/13/18 22:59 06:59 14:59 Intake Total 1790.1 2282.2 868.3 Output Total 326 545 250 Balance 1464.1 1737.2 618.3 Weight 199 lb Intake: IV 47.0 348.1 72.9 Intake, IV Amount 1743.1 1934.1 795.4 LFA #18 36 Left Forearm 1400 Left Wrist 250 50 Right Antecubital 37.3 Right Distal Port Femoral 118.9 49.8 Right Medial Port Femoral 19.8 165.2 45.6 Right Proximal Port 1600 700 Femoral Oral 0 0 0 Output: Urine 325 545 250 Urethral (Olivares) 325 545 250 Stool 1 Other: Voiding Method Indwelling Catheter - Physical Exam Physical Exam Limitations: Positive for: Altered Mental Status Head: Positive for: Atraumatic, Normocephalic Mouth: Positive for: Dry, Other (ETT in place) Nose (External): Positive for: Atraumatic Respiratory/Chest: Positive for: Decreased Breath Sounds. Negative for: Respiratory Distress (Vented) Cardiovascular: Positive for: Normal S1, S2, Tachycardic (Intermittently goes into SVT rate at 180s and then slows down to 90s) Abdomen: Positive for: Normal Bowel Sounds, Other (Olivares draining brown urine. R femoral TLC in place. ). Negative for: Tenderness Lower Extremity: Positive for: Edema (Edema of left lower extremity. Unable to palpate DP pulses secondary to edema. Right ), Other (Right lower extremity: Doralis pedis pulse present) Neurological: Positive for: Other (Altered) Psychiatric: Positive for: Other (Altered) - Medications Active Medications: Active Medications Generic Name Dose Route Start Last Admin Trade Name Freq PRN Reason Stop Dose Admin Famotidine 20 mg 01/13/18 10:00 01/13/18 09:28 Pepcid IVP 20 mg DAILY JOJO Administration Heparin Sodium (Porcine) 5,000 units 01/12/18 22:00 01/13/18 05:29 Heparin SC 5,000 units Q8 JOJO Administration Norepinephrine Bitartrate 4 mg 254 mls @ 15.24 mls/hr 01/12/18 15:34 08:13 / Sodium Chloride IV 3 mcg/min .[id number] PRN 11.43 mls/hr TITRATE PER MD ORDER Titration Protocol 4 MCG/MIN Propofol 1,000 mg in 100 mls @ 2.776 mls/hr 01/12/18 19:21 01/13/18 06:27 Diprivan IV 30 mcg/kg/min .Q24H PRN 16.656 mls/hr Agitation Administration Protocol 5 MCG/KG/MIN Piperacillin Sod/Tazobactam Sod 2.25 gm in 50 mls @ 100 mls/hr 01/12/18 20:00 01/13/18 08:30 Zosyn 2.25 Gm Iv Premix IVPB 100 mls/hr Q6H JOJO Administration Protocol Sodium Chloride 1,000 mls @ 200 mls/hr 01/12/18 20:45 01/13/18 06:45 Sodium Chloride 0.9% IV 200 mls/hr .Q5H JOJO Administration Potassium Chloride 20 meq in 100 mls @ 50 mls/hr 01/13/18 08:00 01/13/18 09: 30 Potassium Chloride 20 Meq/100 Ml IVPB 01/13/18 11:59 50 mls/hr Q2 JOJO Administration Ipratropium [place] 0.5 mg 01/12/18 19:03 Atrovent IH RQ6 PRN Shortness of Breath Metoprolol Tartrate 2.5 mg 01/13/18 12:00 Lopressor IVP Q6 JOJO Pneumococcal Polyvalent Vaccine 0.5 ml 01/14/18 10:00 Pneumovax 23 Vaccine IM 01/14/18 10:01 .ONCE ONE - Patient Studies Lab Studies: Lab Studies 01/13/18 01/13/18 01/13/18 Range/Units 05:54 05:54 04:25 WBC 19.4 H (4.8-10.8) K/uL RBC 3.97 L (4.40-5.90) Mil/uL Hgb 10.3 L D (12.0-18.0) g/dL Hct 32.5 L (35.0-51.0) % MCV 81.8 (80.0-94.0) fL MCH 25.8 L (27.0-31.0) pg MCHC 31.6 L (33.0-37.0) g/dL RDW 17.0 H (11.5-14.5) % Plt Count 196 (130-400) K/uL MPV 7.3 (7.2-11.7) fL Neut % (Auto) 89.2 H (50.0-75.0) % Lymph % (Auto) 3.9 L (20.0-40.0) % [place] % (Auto) 6.9 (0.0-10.0) % Eos % (Auto) 0.0 (0.0-4.0) % Baso % (Auto) 0.0 (0.0-2.0) % Neut # (Auto) 17.3 H (1.8-7.0) K/uL Lymph # (Auto) 0.8 L (1.0-4.3) K/uL [place] # (Auto) 1.3 H (0.0-0.8) K/uL Eos # (Auto) 0.0 (0.0-0.7) K/uL Baso # (Auto) 0.0 (0.0-0.2) K/uL Neutrophils % (Manual) 81 H (50-75) % Band Neutrophils % 11 H* (0-2) % Lymphocytes % (Manual) 3 L (20-40) % Monocytes % (Manual) 5 (0-10) % Platelet Estimate Normal (NORMAL) Large Platelets Present Hypochromasia (manual) Slight Poikilocytosis (manual Slight Anisocytosis (manual) Slight Target Cells Slight PT (9.7-12.2) SECONDS INR APTT (21-34) SECONDS D-Dimer, Quantitative (0-243) ng/mlDDU Puncture Site Rb pCO2 32 L (35-45) mm/Hg pO2 146 H (30-55) mm/Hg HCO3 26.0 (21-28) mmol/L ABG pH 7.49 H (7.35-7.45) ABG Total CO2 25.4 (22-28) mmol/L ABG O2 Saturation 98.2 H (95-98) % ABG Base Excess 1.4 (-2.0-3.0) mmol/L ABG Hemoglobin 10.6 L (11.7-17.4) g/dL ABG Carboxyhemoglobin 0.8 (0.5-1.5) % POC ABG HHb (Measured) 1.7 (0.0-5.0) % ABG Methemoglobin 2.3 (0.0-3.0) % Aníbal Test Na ABG Potassium (3.6-5.2) mmol/L VBG pH (7.32-7.43) VBG pCO2 (40-60) mmHg VBG HCO3 mmol/L VBG Total CO2 (22-28) mmol/L VBG O2 Sat (Calc) (40-65) % VBG Base Excess (0.0-2.0) mmol/L VBG Potassium (3.6-5.2) mmol/L A-a O2 Difference 242.0 mm/Hg Respiratory Index 1.7 Hgb O2 Saturation 95.2 (95.0-98.0) % Sodium 139 (132-148) mmol/l Chloride 103 (98-107) mmol/L Glucose (75-110) mg/dl Lactate (0.7-2.1) mmol/L Vent Mode Prvc Mechanical Rate 20 FiO2 60.0 % Tidal Volume 500 PEEP 5 Potassium 3.5 L (3.6-5.2) mmol/L Carbon Dioxide 29 (22-30) mmol/L Anion Gap 10 (10-20) BUN 38 H (9-20) mg/dL Creatinine 1.4 (0.8-1.5) mg/dL Est GFR ( Amer) 59 Est GFR (Non-Af Amer) 49 POC Glucose (mg/dL) (65-110) mg/dL Random Glucose 124 H (75-110) mg/dL Calcium 7.5 L (8.6-10.4) mg/dl Phosphorus 3.1 (2.5-4.5) mg/dL Magnesium 1.8 (1.6-2.3) mg/dL Total Bilirubin 0.6 (0.2-1.3) mg/dL AST 30 (17-59) U/L ALT 27 (21-72) U/L Alkaline Phosphatase 71 (38-126) U/L Troponin I (0.00-0.120) ng/mL NT-Pro-B Natriuret Pep (0-900) pg/mL Total Protein 5.6 L (6.3-8.3) g/dL Albumin 2.7 L D (3.5-5.0) g/dL Globulin 2.9 (2.2-3.9) gm/dL Albumin/Globulin Ratio 0.9 L (1.0-2.1) Lipase (23-300) U/L Arterial Blood Potassium (3.6-5.2) mmol/L Venous Blood Potassium (3.6-5.2) mmol/L Urine Color (YELLOW) Urine Clarity (Clear) Urine pH (5.0-8.0) Ur Specific [place] (1.003-1.030) Urine Protein (NEGATIVE) mg/dL Urine Glucose (UA) (Normal) mg/dL Urine Ketones (NEGATIVE) mg/dL Urine Blood (NEGATIVE) Urine Nitrate (NEGATIVE) Urine Bilirubin (NEGATIVE) Urine Urobilinogen (0.2-1.0) mg/dL Ur Leukocyte Esterase (Negative) [place]/uL Urine WBC (Auto) (0-5) /hpf Urine RBC (Auto) (0-3) /hpf Urine WBC Clumps (Auto) (NONE) /hpf Ur Squamous Epith Cells (0-5) /hpf Urine Bacteria (<OCC) 01/12/18 01/12/18 01/12/18 Range/Units 20:20 20:00 13:36 WBC (4.8-10.8) K/uL RBC (4.40-5.90) Mil/uL Hgb (12.0-18.0) g/dL Hct (35.0-51.0) % MCV (80.0-94.0) fL MCH (27.0-31.0) pg MCHC (33.0-37.0) g/dL RDW (11.5-14.5) % Plt Count (130-400) K/uL MPV (7.2-11.7) fL Neut % (Auto) (50.0-75.0) % Lymph % (Auto) (20.0-40.0) % [place] % (Auto) (0.0-10.0) % Eos % (Auto) (0.0-4.0) % Baso % (Auto) (0.0-2.0) % Neut # (Auto) (1.8-7.0) K/uL Lymph # (Auto) (1.0-4.3) K/uL [place] # (Auto) (0.0-0.8) K/uL Eos # (Auto) (0.0-0.7) K/uL Baso # (Auto) (0.0-0.2) K/uL Neutrophils % (Manual) (50-75) % Band Neutrophils % (0-2) % Lymphocytes % (Manual) (20-40) % Monocytes % (Manual) (0-10) % Platelet Estimate (NORMAL) Large Platelets Hypochromasia (manual) Poikilocytosis (manual Anisocytosis (manual) Target Cells PT (9.7-12.2) SECONDS INR APTT (21-34) SECONDS D-Dimer, Quantitative 3655 H (0-243) ng/mlDDU Puncture Site Rba pCO2 58 H (35-45) mm/Hg pO2 143 H (30-55) mm/Hg HCO3 24.5 (21-28) mmol/L ABG pH 7.28 L (7.35-7.45) ABG Total CO2 29.1 H (22-28) mmol/L ABG O2 Saturation 98.9 H (95-98) % ABG Base Excess -0.6 (-2.0-3.0) mmol/L ABG Hemoglobin (11.7-17.4) g/dL ABG Carboxyhemoglobin (0.5-1.5) % POC ABG HHb (Measured) (0.0-5.0) % ABG Methemoglobin (0.0-3.0) % Aníbal Test Pos ABG Potassium 4.2 (3.6-5.2) mmol/L VBG pH (7.32-7.43) VBG pCO2 (40-60) mmHg VBG HCO3 mmol/L VBG Total CO2 (22-28) mmol/L VBG O2 Sat (Calc) (40-65) % VBG Base Excess (0.0-2.0) mmol/L VBG Potassium (3.6-5.2) mmol/L A-a O2 Difference 212.0 mm/Hg Respiratory Index 1.5 Hgb O2 Saturation (95.0-98.0) % Sodium 138.0 (132-148) mmol/l Chloride 103.0 (98-107) mmol/L Glucose 139 H (75-110) mg/dl Lactate 3.2 H (0.7-2.1) mmol/L Vent Mode Prvc Mechanical Rate 16 FiO2 60.0 % Tidal Volume 500 PEEP 5 Potassium (3.6-5.2) mmol/L Carbon Dioxide (22-30) mmol/L Anion Gap (10-20) BUN (9-20) mg/dL Creatinine (0.8-1.5) mg/dL Est GFR ( Amer) Est GFR (Non-Af Amer) POC Glucose (mg/dL) (65-110) mg/dL Random Glucose (75-110) mg/dL Calcium (8.6-10.4) mg/dl Phosphorus (2.5-4.5) mg/dL Magnesium (1.6-2.3) mg/dL Total Bilirubin (0.2-1.3) mg/dL AST (17-59) U/L ALT (21-72) U/L Alkaline Phosphatase (38-126) U/L Troponin I (0.00-0.120) ng/mL NT-Pro-B Natriuret Pep (0-900) pg/mL Total Protein (6.3-8.3) g/dL Albumin (3.5-5.0) g/dL Globulin (2.2-3.9) gm/dL Albumin/Globulin Ratio (1.0-2.1) Lipase (23-300) U/L Arterial Blood Potassium 4.2 (3.6-5.2) mmol/L Venous Blood Potassium (3.6-5.2) mmol/L Urine Color Yellow (YELLOW) Urine Clarity Turbid (Clear) Urine pH 8.0 (5.0-8.0) Ur Specific [place] 1.011 (1.003-1.030) Urine Protein 2+ H (NEGATIVE) mg/dL Urine Glucose (UA) Normal (Normal) mg/dL Urine Ketones Negative (NEGATIVE) mg/dL Urine Blood 2+ H (NEGATIVE) Urine Nitrate Negative (NEGATIVE) Urine Bilirubin Negative (NEGATIVE) Urine Urobilinogen Normal (0.2-1.0) mg/dL Ur Leukocyte Esterase 3+ H (Negative) [place]/uL Urine WBC (Auto) 1186 H (0-5) /hpf Urine RBC (Auto) 80 H (0-3) /hpf Urine WBC Clumps (Auto) Occ H (NONE) /hpf Ur Squamous Epith Cells 4 (0-5) /hpf Urine Bacteria Mod H (<OCC) 01/12/18 01/12/18 01/12/18 Range/Units 13:05 13:05 13:05 WBC 20.6 H D (4.8-10.8) K/uL RBC 4.72 (4.40-5.90) Mil/uL Hgb 12.3 (12.0-18.0) g/dL Hct 37.9 (35.0-51.0) % MCV 80.4 D (80.0-94.0) fL MCH 26.2 L (27.0-31.0) pg MCHC 32.5 L (33.0-37.0) g/dL RDW 16.8 H (11.5-14.5) % Plt Count 238 (130-400) K/uL MPV 7.0 L (7.2-11.7) fL Neut % (Auto) 83.9 H (50.0-75.0) % Lymph % (Auto) 6.9 L (20.0-40.0) % [place] % (Auto) 8.8 (0.0-10.0) % Eos % (Auto) 0.0 (0.0-4.0) % Baso % (Auto) 0.4 (0.0-2.0) % Neut # (Auto) 17.3 H (1.8-7.0) K/uL Lymph # (Auto) 1.4 (1.0-4.3) K/uL [place] # (Auto) 1.8 H (0.0-0.8) K/uL Eos # (Auto) 0.0 (0.0-0.7) K/uL Baso # (Auto) 0.1 (0.0-0.2) K/uL Neutrophils % (Manual) 68 (50-75) % Band Neutrophils % 12 H* (0-2) % Lymphocytes % (Manual) 14 L (20-40) % Monocytes % (Manual) 6 (0-10) % Platelet Estimate Normal (NORMAL) Large Platelets Hypochromasia (manual) Poikilocytosis (manual Anisocytosis (manual) Slight Target Cells PT 14.2 H (9.7-12.2) SECONDS INR 1.3 APTT 31 (21-34) SECONDS D-Dimer, Quantitative (0-243) ng/mlDDU Puncture Site pCO2 (35-45) mm/Hg pO2 (30-55) mm/Hg HCO3 (21-28) mmol/L ABG pH (7.35-7.45) ABG Total CO2 (22-28) mmol/L ABG O2 Saturation (95-98) % ABG Base Excess (-2.0-3.0) mmol/L ABG Hemoglobin (11.7-17.4) g/dL ABG Carboxyhemoglobin (0.5-1.5) % POC ABG HHb (Measured) (0.0-5.0) % ABG Methemoglobin (0.0-3.0) % Aníbal Test ABG Potassium (3.6-5.2) mmol/L VBG pH (7.32-7.43) VBG pCO2 (40-60) mmHg VBG HCO3 mmol/L VBG Total CO2 (22-28) mmol/L VBG O2 Sat (Calc) (40-65) % VBG Base Excess (0.0-2.0) mmol/L VBG Potassium (3.6-5.2) mmol/L A-a O2 Difference mm/Hg Respiratory Index Hgb O2 Saturation (95.0-98.0) % Sodium 134 (132-148) mmol/l Chloride 90 L (98-107) mmol/L Glucose (75-110) mg/dl Lactate (0.7-2.1) mmol/L Vent Mode Mechanical Rate FiO2 % Tidal Volume PEEP Potassium 4.5 (3.6-5.2) mmol/L Carbon Dioxide 34 H (22-30) mmol/L Anion Gap 15 (10-20) BUN 45 H (9-20) mg/dL Creatinine 2.0 H (0.8-1.5) mg/dL Est GFR ( Amer) 39 Est GFR (Non-Af Amer) 32 POC Glucose (mg/dL) (65-110) mg/dL Random Glucose 167 H (75-110) mg/dL Calcium 8.9 (8.6-10.4) mg/dl Phosphorus 5.3 H (2.5-4.5) mg/dL Magnesium 1.9 (1.6-2.3) mg/dL Total Bilirubin 1.2 (0.2-1.3) mg/dL AST 40 (17-59) U/L ALT 25 (21-72) U/L Alkaline Phosphatase 90 (38-126) U/L Troponin I 0.0340 (0.00-0.120) ng/mL NT-Pro-B Natriuret Pep 1370 H (0-900) pg/mL Total Protein 7.4 (6.3-8.3) g/dL Albumin 3.7 (3.5-5.0) g/dL Globulin 3.7 (2.2-3.9) gm/dL Albumin/Globulin Ratio 1.0 (1.0-2.1) Lipase < 10 L (23-300) U/L Arterial Blood Potassium (3.6-5.2) mmol/L Venous Blood Potassium (3.6-5.2) mmol/L Urine Color (YELLOW) Urine Clarity (Clear) Urine pH (5.0-8.0) Ur Specific [place] (1.003-1.030) Urine Protein (NEGATIVE) mg/dL Urine Glucose (UA) (Normal) mg/dL Urine Ketones (NEGATIVE) mg/dL Urine Blood (NEGATIVE) Urine Nitrate (NEGATIVE) Urine Bilirubin (NEGATIVE) Urine Urobilinogen (0.2-1.0) mg/dL Ur Leukocyte Esterase (Negative) [place]/uL Urine WBC (Auto) (0-5) /hpf Urine RBC (Auto) (0-3) /hpf Urine WBC Clumps (Auto) (NONE) /hpf Ur Squamous Epith Cells (0-5) /hpf Urine Bacteria (<OCC) 01/12/18 01/12/18 Range/Units 12:13 01:05 WBC (4.8-10.8) K/uL RBC (4.40-5.90) Mil/uL Hgb (12.0-18.0) g/dL Hct (35.0-51.0) % MCV (80.0-94.0) fL MCH (27.0-31.0) pg MCHC (33.0-37.0) g/dL RDW (11.5-14.5) % Plt Count (130-400) K/uL MPV (7.2-11.7) fL Neut % (Auto) (50.0-75.0) % Lymph % (Auto) (20.0-40.0) % [place] % (Auto) (0.0-10.0) % Eos % (Auto) (0.0-4.0) % Baso % (Auto) (0.0-2.0) % Neut # (Auto) (1.8-7.0) K/uL Lymph # (Auto) (1.0-4.3) K/uL [place] # (Auto) (0.0-0.8) K/uL Eos # (Auto) (0.0-0.7) K/uL Baso # (Auto) (0.0-0.2) K/uL Neutrophils % (Manual) (50-75) % Band Neutrophils % (0-2) % Lymphocytes % (Manual) (20-40) % Monocytes % (Manual) (0-10) % Platelet Estimate (NORMAL) Large Platelets Hypochromasia (manual) Poikilocytosis (manual Anisocytosis (manual) Target Cells PT (9.7-12.2) SECONDS INR APTT (21-34) SECONDS D-Dimer, Quantitative (0-243) ng/mlDDU Puncture Site pCO2 (35-45) mm/Hg pO2 51 (30-55) mm/Hg HCO3 (21-28) mmol/L ABG pH (7.35-7.45) ABG Total CO2 (22-28) mmol/L ABG O2 Saturation (95-98) % ABG Base Excess (-2.0-3.0) mmol/L ABG Hemoglobin (11.7-17.4) g/dL ABG Carboxyhemoglobin (0.5-1.5) % POC ABG HHb (Measured) (0.0-5.0) % ABG Methemoglobin (0.0-3.0) % Aníbal Test ABG Potassium (3.6-5.2) mmol/L VBG pH 7.37 (7.32-7.43) VBG pCO2 62 H (40-60) mmHg VBG HCO3 31.0 mmol/L VBG Total CO2 37.7 H (22-28) mmol/L VBG O2 Sat (Calc) 88.5 H (40-65) % VBG Base Excess 8.2 H (0.0-2.0) mmol/L VBG Potassium 4.3 (3.6-5.2) mmol/L A-a O2 Difference mm/Hg Respiratory Index Hgb O2 Saturation (95.0-98.0) % Sodium 132.0 (132-148) mmol/l Chloride 96.0 L (98-107) mmol/L Glucose 169 H (75-110) mg/dl Lactate 1.7 (0.7-2.1) mmol/L Vent Mode Mechanical Rate FiO2 % Tidal Volume PEEP Potassium (3.6-5.2) mmol/L Carbon Dioxide (22-30) mmol/L Anion Gap (10-20) BUN (9-20) mg/dL Creatinine (0.8-1.5) mg/dL Est GFR ( Amer) Est GFR (Non-Af Amer) POC Glucose (mg/dL) 168 H (65-110) mg/dL Random Glucose (75-110) mg/dL Calcium (8.6-10.4) mg/dl Phosphorus (2.5-4.5) mg/dL Magnesium (1.6-2.3) mg/dL Total Bilirubin (0.2-1.3) mg/dL AST (17-59) U/L ALT (21-72) U/L Alkaline Phosphatase (38-126) U/L Troponin I (0.00-0.120) ng/mL NT-Pro-B Natriuret Pep (0-900) pg/mL Total Protein (6.3-8.3) g/dL Albumin (3.5-5.0) g/dL Globulin (2.2-3.9) gm/dL Albumin/Globulin Ratio (1.0-2.1) Lipase (23-300) U/L Arterial Blood Potassium (3.6-5.2) mmol/L Venous Blood Potassium 4.3 (3.6-5.2) mmol/L Urine Color (YELLOW) Urine Clarity (Clear) Urine pH (5.0-8.0) Ur Specific [place] (1.003-1.030) Urine Protein (NEGATIVE) mg/dL Urine Glucose (UA) (Normal) mg/dL Urine Ketones (NEGATIVE) mg/dL Urine Blood (NEGATIVE) Urine Nitrate (NEGATIVE) Urine Bilirubin (NEGATIVE) Urine Urobilinogen (0.2-1.0) mg/dL Ur Leukocyte Esterase (Negative) [place]/uL Urine WBC (Auto) (0-5) /hpf Urine RBC (Auto) (0-3) /hpf Urine WBC Clumps (Auto) (NONE) /hpf Ur Squamous Epith Cells (0-5) /hpf Urine Bacteria (<OCC) Laboratory Results - last 24 hr 01/12/18 01/12/18 01/12/18 01:05 12:13 13:05 WBC 20.6 H D RBC 4.72 Hgb 12.3 Hct 37.9 MCV 80.4 D MCH 26.2 L MCHC 32.5 L RDW 16.8 H Plt Count 238 MPV 7.0 L Neut % (Auto) 83.9 H Lymph % (Auto) 6.9 L [place] % (Auto) 8.8 Eos % (Auto) 0.0 Baso % (Auto) 0.4 Neut # (Auto) 17.3 H Lymph # (Auto) 1.4 [place] # (Auto) 1.8 H Eos # (Auto) 0.0 Baso # (Auto) 0.1 Neutrophils % (Manual) 68 Band Neutrophils % 12 H* Lymphocytes % (Manual) 14 L Monocytes % (Manual) 6 Platelet Estimate Normal Large Platelets Hypochromasia (manual) Poikilocytosis (manual Anisocytosis (manual) Slight Target Cells PT INR APTT D-Dimer, Quantitative Puncture Site pCO2 pO2 51 HCO3 ABG pH ABG Total CO2 ABG O2 Saturation ABG Base Excess ABG Hemoglobin ABG Carboxyhemoglobin POC ABG HHb (Measured) ABG Methemoglobin Aníbal Test ABG Potassium VBG pH 7.37 VBG pCO2 62 H VBG HCO3 31.0 VBG Total CO2 37.7 H VBG O2 Sat (Calc) 88.5 H VBG Base Excess 8.2 H VBG Potassium 4.3 A-a O2 Difference Respiratory Index Hgb O2 Saturation Sodium 132.0 Chloride 96.0 L Glucose 169 H Lactate 1.7 Vent Mode Mechanical Rate FiO2 Tidal Volume PEEP Potassium Carbon Dioxide Anion Gap BUN Creatinine Est GFR ( Amer) Est GFR (Non-Af Amer) POC Glucose (mg/dL) 168 H Random Glucose Calcium Phosphorus Magnesium Total Bilirubin AST ALT Alkaline Phosphatase Troponin I NT-Pro-B Natriuret Pep Total Protein Albumin Globulin Albumin/Globulin Ratio Lipase Arterial Blood Potassium Venous Blood Potassium 4.3 Urine Color Urine Clarity Urine pH Ur Specific [place] Urine Protein Urine Glucose (UA) Urine Ketones Urine Blood Urine Nitrate Urine Bilirubin Urine Urobilinogen Ur Leukocyte Esterase Urine WBC (Auto) Urine RBC (Auto) Urine WBC Clumps (Auto) Ur Squamous Epith Cells Urine Bacteria 01/12/18 01/12/18 01/12/18 13:05 13:05 13:36 WBC RBC Hgb Hct MCV MCH MCHC RDW Plt Count MPV Neut % (Auto) Lymph % (Auto) [place] % (Auto) Eos % (Auto) Baso % (Auto) Neut # (Auto) Lymph # (Auto) [place] # (Auto) Eos # (Auto) Baso # (Auto) Neutrophils % (Manual) Band Neutrophils % Lymphocytes % (Manual) Monocytes % (Manual) Platelet Estimate Large Platelets Hypochromasia (manual) Poikilocytosis (manual Anisocytosis (manual) Target Cells PT 14.2 H INR 1.3 APTT 31 D-Dimer, Quantitative Puncture Site pCO2 pO2 HCO3 ABG pH ABG Total CO2 ABG O2 Saturation ABG Base Excess ABG Hemoglobin ABG Carboxyhemoglobin POC ABG HHb (Measured) ABG Methemoglobin [place] Test ABG Potassium VBG pH VBG pCO2 VBG HCO3 VBG Total CO2 VBG O2 Sat (Calc) VBG Base Excess VBG Potassium A-a O2 Difference Respiratory Index Hgb O2 Saturation Sodium 134 Chloride 90 L Glucose Lactate Vent Mode Mechanical Rate FiO2 Tidal Volume PEEP Potassium 4.5 Carbon Dioxide 34 H Anion Gap 15 BUN 45 H Creatinine 2.0 H Est GFR ( Amer) 39 Est GFR (Non-Af Amer) 32 POC Glucose (mg/dL) Random Glucose 167 H Calcium 8.9 Phosphorus 5.3 H Magnesium 1.9 Total Bilirubin 1.2 AST 40 ALT 25 Alkaline Phosphatase 90 Troponin I 0.0340 NT-Pro-B Natriuret Pep 1370 H Total Protein 7.4 Albumin 3.7 Globulin 3.7 Albumin/Globulin Ratio 1.0 Lipase < 10 L Arterial Blood Potassium Venous Blood Potassium Urine Color Yellow Urine Clarity Turbid Urine pH 8.0 Ur Specific [place] 1.011 Urine Protein 2+ H Urine Glucose (UA) Normal Urine Ketones Negative Urine Blood 2+ H Urine Nitrate Negative Urine Bilirubin Negative Urine Urobilinogen Normal Ur Leukocyte Esterase 3+ H Urine WBC (Auto) 1186 H Urine RBC (Auto) 80 H Urine WBC Clumps (Auto) Occ H Ur Squamous Epith Cells 4 Urine Bacteria Mod H 01/12/18 01/12/18 01/13/18 20:00 20:20 04:25 WBC RBC Hgb Hct MCV MCH MCHC RDW Plt Count MPV Neut % (Auto) Lymph % (Auto) [place] % (Auto) Eos % (Auto) Baso % (Auto) Neut # (Auto) Lymph # (Auto) [place] # (Auto) Eos # (Auto) Baso # (Auto) Neutrophils % (Manual) Band Neutrophils % Lymphocytes % (Manual) Monocytes % (Manual) Platelet Estimate Large Platelets Hypochromasia (manual) Poikilocytosis (manual Anisocytosis (manual) Target Cells PT INR APTT D-Dimer, Quantitative 3655 H Puncture Site Rba Rb pCO2 58 H 32 L pO2 143 H 146 H HCO3 24.5 26.0 ABG pH 7.28 L 7.49 H ABG Total CO2 29.1 H 25.4 ABG O2 Saturation 98.9 H 98.2 H ABG Base Excess -0.6 1.4 ABG Hemoglobin 10.6 L ABG Carboxyhemoglobin 0.8 POC ABG HHb (Measured) 1.7 ABG Methemoglobin 2.3 Aníbal Test Pos Na ABG Potassium 4.2 VBG pH VBG pCO2 VBG HCO3 VBG Total CO2 VBG O2 Sat (Calc) VBG Base Excess VBG Potassium A-a O2 Difference 212.0 242.0 Respiratory Index 1.5 1.7 Hgb O2 Saturation 95.2 Sodium 138.0 Chloride 103.0 Glucose 139 H Lactate 3.2 H Vent Mode Prvc Prvc Mechanical Rate 16 20 FiO2 60.0 60.0 Tidal Volume 500 500 PEEP 5 5 Potassium Carbon Dioxide Anion Gap BUN Creatinine Est GFR ( Amer) Est GFR (Non-Af Amer) POC Glucose (mg/dL) Random Glucose Calcium Phosphorus Magnesium Total Bilirubin AST ALT Alkaline Phosphatase Troponin I NT-Pro-B Natriuret Pep Total Protein Albumin Globulin Albumin/Globulin Ratio Lipase Arterial Blood Potassium 4.2 Venous Blood Potassium Urine Color Urine Clarity Urine pH Ur Specific [place] Urine Protein Urine Glucose (UA) Urine Ketones Urine Blood Urine Nitrate Urine Bilirubin Urine Urobilinogen Ur Leukocyte Esterase Urine WBC (Auto) Urine RBC (Auto) Urine WBC Clumps (Auto) Ur Squamous Epith Cells Urine Bacteria 01/13/18 01/13/18 05:54 05:54 WBC 19.4 H RBC 3.97 L Hgb 10.3 L D Hct 32.5 L MCV 81.8 MCH 25.8 L MCHC 31.6 L RDW 17.0 H Plt Count 196 MPV 7.3 Neut % (Auto) 89.2 H Lymph % (Auto) 3.9 L [place] % (Auto) 6.9 Eos % (Auto) 0.0 Baso % (Auto) 0.0 Neut # (Auto) 17.3 H Lymph # (Auto) 0.8 L [place] # (Auto) 1.3 H Eos # (Auto) 0.0 Baso # (Auto) 0.0 Neutrophils % (Manual) 81 H Band Neutrophils % 11 H* Lymphocytes % (Manual) 3 L Monocytes % (Manual) 5 Platelet Estimate Normal Large Platelets Present Hypochromasia (manual) Slight Poikilocytosis (manual Slight Anisocytosis (manual) Slight Target Cells Slight PT INR APTT D-Dimer, Quantitative Puncture Site pCO2 pO2 HCO3 ABG pH ABG Total CO2 ABG O2 Saturation ABG Base Excess ABG Hemoglobin ABG Carboxyhemoglobin POC ABG HHb (Measured) ABG Methemoglobin Aníbal Test ABG Potassium VBG pH VBG pCO2 VBG HCO3 VBG Total CO2 VBG O2 Sat (Calc) VBG Base Excess VBG Potassium A-a O2 Difference Respiratory Index Hgb O2 Saturation Sodium 139 Chloride 103 Glucose Lactate Vent Mode Mechanical Rate FiO2 Tidal Volume PEEP Potassium 3.5 L Carbon Dioxide 29 Anion Gap 10 BUN 38 H Creatinine 1.4 Est GFR ( Amer) 59 Est GFR (Non-Af Amer) 49 POC Glucose (mg/dL) Random Glucose 124 H Calcium 7.5 L Phosphorus 3.1 Magnesium 1.8 Total Bilirubin 0.6 AST 30 ALT 27 Alkaline Phosphatase 71 Troponin I NT-Pro-B Natriuret Pep Total Protein 5.6 L Albumin 2.7 L D Globulin 2.9 Albumin/Globulin Ratio 0.9 L Lipase Arterial Blood Potassium Venous Blood Potassium Urine Color Urine Clarity Urine pH Ur Specific [place] Urine Protein Urine Glucose (UA) Urine Ketones Urine Blood Urine Nitrate Urine Bilirubin Urine Urobilinogen Ur Leukocyte Esterase Urine WBC (Auto) Urine RBC (Auto) Urine WBC Clumps (Auto) Ur Squamous Epith Cells Urine Bacteria EKG/Cardiology Studies: Cardiology / EKG Studies 01/12/18 12:30 ELECTROCARDIOGRAM Stat Comment: Mode Of Transportation: Reason For Exam: Sepsis Patient 01/12/18 14:41 EKG [ELECTROCARDIOGRAM] Stat Comment: Mode Of Transportation: STRETCHER Reason For Exam: sob 01/12/18 15:04 EKG [ELECTROCARDIOGRAM] Stat Comment: Mode Of Transportation: STRETCHER Reason For Exam: sob Fingerstick Blood Sugar Results: 168 Review of Systems - Review of Systems Systems not reviewed;Unavailable: Intubated Assessment/Plan - Assessment and Plan (Free Text) Assessment: 77 year old male with history of diastolic CHF, COPD, diverticulitis, HTN, peripheral edema, pneumonia who presented from skilled nursing for altered mental status. Patient was found to be hypotensive with leukocytosis. On arrival to ICU , patient was noted to be very agitated and in respiratory distress and was intubated. Patient intermittently goes into SVT with rate into 180s, required cardioversion overnight. Plan: Neuro: Altered mental status CT head Mild age related neuro degenerative changes are appreciated which appear age appropriate. No definite acute intracranial findings by standard CT criteria. Follow-up CT or MRI are available if clinically warranted. Sedated with Propofol Cardiovascular Tachycardic with SVT 170s occasionally goes down to SR in 90s Currently on Levophed Patient was cardioverted x2, and received Lopressor 5mg IVP with response and reduction of HR down to 90s. Patient was then cardioverted again, however patient did not respond. Started on Amiodarone drip. Hx of diastolic CHF proBNP 1370 Troponin 0.0340 NS IV fluids @ 70cc/hr f/u ECHO f/u CT angio Pulmonary VBG pH 7.37/pCO2 62/pO2 51/ HCO 31 CXR No interval pathology noted. Patient found to be in respiratory distress and intubated on arrival Sedated on Propofol Venous doppler of left lower extremity: no evidence of thrombosis in left leg. D-dimer 3655 ABG pH 7.49 pCO2 32 pO2 146 HCO3 26 Atrovent Q6 F/u CT angio to rule out PE started on Heparin drip GI Pepcid 20mg IV Started on NG tube feeds Renal BUN 38 Cr 1.4 NS IV fluids @ 70cc/hr I&Os Endo Maintain euglycemia ID White count 19.4 with bands 11 Not febrile currently Lactate from vBG 1.7 Aztreonam, Meropenem UA 3+ LE, 2+ protein 2+ blood moderate bacteria WBC 1186 Blood culture prelim positive for GN rods urine culture, MRSA screen sent. Heme/Onc H/H 10.3/32.5 PPX: Pepcid, Heparin drip Case discussed with Dr. Cannon <Juan C Cannon S - Last Filed: 01/13/18 17:54> CCU Subjective - Physician Review Critical Care Time Spent (in minutes): 40 CCU Objective - Vital Signs / Intake & Output Vital Signs (Last 4 hours): Vital Signs Temp Pulse Resp BP Pulse Ox 01/13/18 17:00 174 H 24 102/67 95 01/13/18 16:49 95 H 28 H 117/69 95 01/13/18 16:46 96 H 19 119/74 94 L 01/13/18 16:39 172 H 24 119/64 95 01/13/18 16:31 168 H 22 61/43 L 94 L 01/13/18 16:30 167 H 23 94 L 01/13/18 16:15 166 H 22 89/70 L 95 01/13/18 16:06 175 H 18 91/54 L 95 01/13/18 16:01 92 H 19 84/51 L 95 01/13/18 16:00 100.0 F H 94 H 22 98 01/13/18 15:59 172 H 21 73/49 L 95 01/13/18 15:39 170 H 21 71/42 L 94 L 01/13/18 15:30 169 H 21 94 L 01/13/18 15:00 73 17 96 01/13/18 14:59 74 17 91/54 L 96 01/13/18 14:30 81 20 100 01/13/18 14:29 80 20 94/52 L 99 01/13/18 14:00 173 H 14 99 01/13/18 13:59 178 H 13 103/65 96 Intake and Output (Last 8hrs): Intake & Output 01/13/18 01/13/18 01/13/18 06:59 14:59 22:59 Intake Total 2282.2 1855.6 604.9 Output Total 545 630 200 Balance 1737.2 1225.6 404.9 Weight 199 lb Intake: IV 348.1 172.9 45 Intake, IV Amount 1934.1 1682.7 479.9 LFA #18 16.2 Left Wrist 50 50 133.3 Right Distal Port Femoral 118.9 116.3 33.3 Right Medial Port Femoral 165.2 106.4 57.1 Right Proximal Port 1600 1410 240 Femoral Oral 0 0 70 Tube Feeding 10 Output: Urine 545 630 200 Urethral (Olivares) 545 630 200 Other: # Bowel Movements 0 - Medications Active Medications: Active Medications Generic Name Dose Route Start Last Admin Trade Name Freq PRN Reason Stop Dose Admin Famotidine 20 mg 01/13/18 10:00 01/13/18 09:28 Pepcid IVP 20 mg DAILY JOJO Administration Heparin Sodium (Porcine) 5,000 units 01/12/18 22:00 01/13/18 14:42 Heparin SC Not Given Q8 [facility]JO Norepinephrine Bitartrate 4 mg 254 mls @ 15.24 mls/hr 01/12/18 15:34 16:30 / Sodium Chloride IV 7 mcg/min .[id number] PRN 26.67 mls/hr TITRATE PER MD ORDER Titration Protocol 4 MCG/MIN Propofol 1,000 mg in 100 mls @ 2.776 mls/hr 01/12/18 19:21 01/13/18 12:40 Diprivan IV 30 mcg/kg/min .Q24H PRN 16.656 mls/hr Agitation Administration Protocol 5 MCG/KG/MIN Sodium Chloride 1,000 mls @ 70 mls/hr 01/13/18 10:15 01/13/18 10:26 Sodium Chloride 0.9% IV 70 mls/hr .[id number] JOJO Administration Meropenem 1 gm/ Sodium 100 mls @ 100 mls/hr 01/13/18 16:00 01/13/18 16:19 Chloride IVPB 100 mls/hr Q12H [facility] Administration Protocol Heparin Sodium/Sodium Chloride 25,000 units in 250 mls @ 16.248 mls/hr 16:00 01/13/18 16:12 Heparin 58149 Units/250ml 1/2 Normal Saline IV 18 units/kg/hr .[id number] PRN 16.248 mls/hr PROTOCOL Administration Protocol 18 UNITS/KG/HR Amiodarone HCl 900 mg/ 500 mls @ 33.33 mls/hr 01/13/18 15:28 01/13/18 16:06 Dextrose IV 01/14/18 06:28 33.33 mls/hr .[id number] ONE Administration Protocol 1 MG/MIN Amiodarone HCl 900 mg/ 500 mls @ 16.66 mls/hr 01/13/18 21:30 Dextrose IV 01/14/18 21:29 .Q24H ONE Protocol 0.5 MG/MIN Aztreonam 1 gm/ Sodium 100 mls @ 200 mls/hr 01/13/18 17:00 01/13/18 17:47 Chloride IVPB 200 mls/hr Q8H [facility] Administration Protocol Ipratropium [place] 0.5 mg 01/12/18 19:03 Atrovent IH RQ6 PRN Shortness of Breath Metoprolol Tartrate 2.5 mg 01/13/18 12:00 01/13/18 12:29 Lopressor IVP Not Given Q6 [facility] Pneumococcal Polyvalent Vaccine 0.5 ml 01/14/18 10:00 Pneumovax 23 Vaccine IM 01/14/18 10:01 .ONCE ONE - Patient Studies Lab Studies: Microbiology Studies 01/12/18 13:36 Urine Culture - Final Urine,Catheterized MULTIPLE SPECIES. SUGGEST REPEAT SPECIMEN. 01/13/18 05:55 Gram Stain - Preliminary Sputum 01/12/18 12:50 Blood Culture - Preliminary Blood Gram Negative Cuong Gram Stain - Preliminary 01/12/18 12:53 Blood Culture - Preliminary Blood Gram Negative Cuong Gram Stain - Preliminary Lab Studies 01/13/18 01/13/18 01/13/18 Range/Units 15:13 05:54 05:54 WBC 19.4 H (4.8-10.8) K/uL RBC 3.97 L (4.40-5.90) Mil/uL Hgb 10.3 L D (12.0-18.0) g/dL Hct 32.5 L (35.0-51.0) % MCV 81.8 (80.0-94.0) fL MCH 25.8 L (27.0-31.0) pg MCHC 31.6 L (33.0-37.0) g/dL RDW 17.0 H (11.5-14.5) % Plt Count 196 (130-400) K/uL MPV 7.3 (7.2-11.7) fL Neut % (Auto) 89.2 H (50.0-75.0) % Lymph % (Auto) 3.9 L (20.0-40.0) % [place] % (Auto) 6.9 (0.0-10.0) % Eos % (Auto) 0.0 (0.0-4.0) % Baso % (Auto) 0.0 (0.0-2.0) % Neut # (Auto) 17.3 H (1.8-7.0) K/uL Lymph # (Auto) 0.8 L (1.0-4.3) K/uL [place] # (Auto) 1.3 H (0.0-0.8) K/uL Eos # (Auto) 0.0 (0.0-0.7) K/uL Baso # (Auto) 0.0 (0.0-0.2) K/uL Neutrophils % (Manual) 81 H (50-75) % Band Neutrophils % 11 H* (0-2) % Lymphocytes % (Manual) 3 L (20-40) % Monocytes % (Manual) 5 (0-10) % Platelet Estimate Normal (NORMAL) Large Platelets Present Hypochromasia (manual) Slight Poikilocytosis (manual Slight Anisocytosis (manual) Slight Target Cells Slight PT 15.7 H (9.7-12.2) SECONDS INR 1.4 APTT 33 (21-34) SECONDS D-Dimer, Quantitative (0-243) ng/mlDDU Puncture Site pCO2 (35-45) mm/Hg pO2 (80-100) mm/Hg HCO3 (21-28) mmol/L ABG pH (7.35-7.45) ABG Total CO2 (22-28) mmol/L ABG O2 Saturation (95-98) % ABG Base Excess (-2.0-3.0) mmol/L ABG Hemoglobin (11.7-17.4) g/dL ABG Carboxyhemoglobin (0.5-1.5) % POC ABG HHb (Measured) (0.0-5.0) % ABG Methemoglobin (0.0-3.0) % Aníbal Test ABG Potassium (3.6-5.2) mmol/L A-a O2 Difference mm/Hg Respiratory Index Hgb O2 Saturation (95.0-98.0) % Sodium 139 (132-148) mmol/l Chloride 103 (98-107) mmol/L Glucose (75-110) mg/dl Lactate (0.7-2.1) mmol/L Vent Mode Mechanical Rate FiO2 % Tidal Volume PEEP Potassium 3.5 L (3.6-5.2) mmol/L Carbon Dioxide 29 (22-30) mmol/L Anion Gap 10 (10-20) BUN 38 H (9-20) mg/dL Creatinine 1.4 (0.8-1.5) mg/dL Est GFR ( Amer) 59 Est GFR (Non-Af Amer) 49 Random Glucose 124 H (75-110) mg/dL Calcium 7.5 L (8.6-10.4) mg/dl Phosphorus 3.1 (2.5-4.5) mg/dL Magnesium 1.8 (1.6-2.3) mg/dL Total Bilirubin 0.6 (0.2-1.3) mg/dL AST 30 (17-59) U/L ALT 27 (21-72) U/L Alkaline Phosphatase 71 (38-126) U/L Total Protein 5.6 L (6.3-8.3) g/dL Albumin 2.7 L D (3.5-5.0) g/dL Globulin 2.9 (2.2-3.9) gm/dL Albumin/Globulin Ratio 0.9 L (1.0-2.1) Arterial Blood Potassium (3.6-5.2) mmol/L 01/13/18 01/12/18 01/12/18 Range/Units 04:25 20:20 20:00 WBC (4.8-10.8) K/uL RBC (4.40-5.90) Mil/uL Hgb (12.0-18.0) g/dL Hct (35.0-51.0) % MCV (80.0-94.0) fL MCH (27.0-31.0) pg MCHC (33.0-37.0) g/dL RDW (11.5-14.5) % Plt Count (130-400) K/uL MPV (7.2-11.7) fL Neut % (Auto) (50.0-75.0) % Lymph % (Auto) (20.0-40.0) % [place] % (Auto) (0.0-10.0) % Eos % (Auto) (0.0-4.0) % Baso % (Auto) (0.0-2.0) % Neut # (Auto) (1.8-7.0) K/uL Lymph # (Auto) (1.0-4.3) K/uL [place] # (Auto) (0.0-0.8) K/uL Eos # (Auto) (0.0-0.7) K/uL Baso # (Auto) (0.0-0.2) K/uL Neutrophils % (Manual) (50-75) % Band Neutrophils % (0-2) % Lymphocytes % (Manual) (20-40) % Monocytes % (Manual) (0-10) % Platelet Estimate (NORMAL) Large Platelets Hypochromasia (manual) Poikilocytosis (manual Anisocytosis (manual) Target Cells PT (9.7-12.2) SECONDS INR APTT (21-34) SECONDS D-Dimer, Quantitative 3655 H (0-243) ng/mlDDU Puncture Site Rb Rba pCO2 32 L 58 H (35-45) mm/Hg pO2 146 H 143 H (80-100) mm/Hg HCO3 26.0 24.5 (21-28) mmol/L ABG pH 7.49 H 7.28 L (7.35-7.45) ABG Total CO2 25.4 29.1 H (22-28) mmol/L ABG O2 Saturation 98.2 H 98.9 H (95-98) % ABG Base Excess 1.4 -0.6 (-2.0-3.0) mmol/L ABG Hemoglobin 10.6 L (11.7-17.4) g/dL ABG Carboxyhemoglobin 0.8 (0.5-1.5) % POC ABG HHb (Measured) 1.7 (0.0-5.0) % ABG Methemoglobin 2.3 (0.0-3.0) % Aníbal Test Na Pos ABG Potassium 4.2 (3.6-5.2) mmol/L A-a O2 Difference 242.0 212.0 mm/Hg Respiratory Index 1.7 1.5 Hgb O2 Saturation 95.2 (95.0-98.0) % Sodium 138.0 (132-148) mmol/l Chloride 103.0 (98-107) mmol/L Glucose 139 H (75-110) mg/dl Lactate 3.2 H (0.7-2.1) mmol/L Vent Mode Prvc Prvc Mechanical Rate 20 16 FiO2 60.0 60.0 % Tidal Volume 500 500 PEEP 5 5 Potassium (3.6-5.2) mmol/L Carbon Dioxide (22-30) mmol/L Anion Gap (10-20) BUN (9-20) mg/dL Creatinine (0.8-1.5) mg/dL Est GFR ( Amer) Est GFR (Non-Af Amer) Random Glucose (75-110) mg/dL Calcium (8.6-10.4) mg/dl Phosphorus (2.5-4.5) mg/dL Magnesium (1.6-2.3) mg/dL Total Bilirubin (0.2-1.3) mg/dL AST (17-59) U/L ALT (21-72) U/L Alkaline Phosphatase (38-126) U/L Total Protein (6.3-8.3) g/dL Albumin (3.5-5.0) g/dL Globulin (2.2-3.9) gm/dL Albumin/Globulin Ratio (1.0-2.1) Arterial Blood Potassium 4.2 (3.6-5.2) mmol/L Laboratory Results - last 24 hr 01/12/18 01/12/1818 20:00 20:20 04:25 WBC RBC Hgb Hct MCV MCH MCHC RDW Plt Count MPV Neut % (Auto) Lymph % (Auto) [place] % (Auto) Eos % (Auto) Baso % (Auto) Neut # (Auto) Lymph # (Auto) [place] # (Auto) Eos # (Auto) Baso # (Auto) Neutrophils % (Manual) Band Neutrophils % Lymphocytes % (Manual) Monocytes % (Manual) Platelet Estimate Large Platelets Hypochromasia (manual) Poikilocytosis (manual Anisocytosis (manual) Target Cells PT INR APTT D-Dimer, Quantitative 3655 H Puncture Site Rba Rb pCO2 58 H 32 L pO2 143 H 146 H HCO3 24.5 26.0 ABG pH 7.28 L 7.49 H ABG Total CO2 29.1 H 25.4 ABG O2 Saturation 98.9 H 98.2 H ABG Base Excess -0.6 1.4 ABG Hemoglobin 10.6 L ABG Carboxyhemoglobin 0.8 POC ABG HHb (Measured) 1.7 ABG Methemoglobin 2.3 Aníbal Test Pos Na ABG Potassium 4.2 A-a O2 Difference 212.0 242.0 Respiratory Index 1.5 1.7 Hgb O2 Saturation 95.2 Sodium 138.0 Chloride 103.0 Glucose 139 H Lactate 3.2 H Vent Mode Prvc Prvc Mechanical Rate 16 20 FiO2 60.0 60.0 Tidal Volume 500 500 PEEP 5 5 Potassium Carbon Dioxide Anion Gap BUN Creatinine Est GFR ( Amer) Est GFR (Non-Af Amer) Random Glucose Calcium Phosphorus Magnesium Total Bilirubin AST ALT Alkaline Phosphatase Total Protein Albumin Globulin Albumin/Globulin Ratio Arterial Blood Potassium 4.2 01/13/18 01/13/18 01/13/18 05:54 05:54 15:13 WBC 19.4 H RBC 3.97 L Hgb 10.3 L D Hct 32.5 L MCV 81.8 MCH 25.8 L MCHC 31.6 L RDW 17.0 H Plt Count 196 MPV 7.3 Neut % (Auto) 89.2 H Lymph % (Auto) 3.9 L [place] % (Auto) 6.9 Eos % (Auto) 0.0 Baso % (Auto) 0.0 Neut # (Auto) 17.3 H Lymph # (Auto) 0.8 L [place] # (Auto) 1.3 H Eos # (Auto) 0.0 Baso # (Auto) 0.0 Neutrophils % (Manual) 81 H Band Neutrophils % 11 H* Lymphocytes % (Manual) 3 L Monocytes % (Manual) 5 Platelet Estimate Normal Large Platelets Present Hypochromasia (manual) Slight Poikilocytosis (manual Slight Anisocytosis (manual) Slight Target Cells Slight PT 15.7 H INR 1.4 APTT 33 D-Dimer, Quantitative Puncture Site pCO2 pO2 HCO3 ABG pH ABG Total CO2 ABG O2 Saturation ABG Base Excess ABG Hemoglobin ABG Carboxyhemoglobin POC ABG HHb (Measured) ABG Methemoglobin Aníbal Test ABG Potassium A-a O2 Difference Respiratory Index Hgb O2 Saturation Sodium 139 Chloride 103 Glucose Lactate Vent Mode Mechanical Rate FiO2 Tidal Volume PEEP Potassium 3.5 L Carbon Dioxide 29 Anion Gap 10 BUN 38 H Creatinine 1.4 Est GFR ( Amer) 59 Est GFR (Non-Af Amer) 49 Random Glucose 124 H Calcium 7.5 L Phosphorus 3.1 Magnesium 1.8 Total Bilirubin 0.6 AST 30 ALT 27 Alkaline Phosphatase 71 Total Protein 5.6 L Albumin 2.7 L D Globulin 2.9 Albumin/Globulin Ratio 0.9 L Arterial Blood Potassium Attending/Attestation - Attestation I have personally seen and examined this patient.: Yes I have fully participated in the care of the patient.: Yes I have reviewed all pertinent clinical information: Yes Notes (Text): 01/13/18 17:51 Patient seen and examined in the intensive care unit Intubated on ventilatory support Patient has episodes of supraventricular tachycardia status post cardioversion Started on amiodarone drip IV fluids Continue antibiotics CT angio of chest possible cardiac cath Venous Doppler negative for DVT Started on IV heparin
[2018-01-13] MEDS: Metoprolol 1 mg/ml Inj IVP SCH ×3 (12:29→23:18)
--- NOTE | 2018-01-13 14:18 | CP.PCM.CON ---
History of Present Illness - History of Present Illness History of Present Illness: dictated Past Patient History - Past Medical History & Family History Past Medical History?: Yes - Past Social History Smoking Status: Former Smoker - CARDIAC Hx Congestive Heart Failure: Yes (DIASTOLIC CHF) Hx Hypertension: Yes Hx Peripheral Edema: Yes - PULMONARY Hx Chronic Obstructive Pulmonary Disease (COPD): Yes Hx Pneumonia: Yes (BRONCHOPNEUMONIA UNSPECIFIED ORGANISM(11/04/15)) - NEUROLOGICAL Hx Neurological Disorder: Yes Other/Comment: CERVICAL CORD COMPRESSION. CERVICAL STENOSIS. NEUROPATHY - HEENT Hx HEENT Problems: No - RENAL Hx Chronic Kidney Disease: No - ENDOCRINE/METABOLIC Hx Endocrine Disorders: No - HEMATOLOGICAL/ONCOLOGICAL Hx Blood Disorders: No - INTEGUMENTARY Hx Dermatological Problems: Yes Other/Comment: LEFT LOWER EXTREMITY CELLULITIS - MUSCULOSKELETAL/RHEUMATOLOGICAL Hx Musculoskeletal Disorders: Yes Hx Back Pain: Yes Hx Osteoarthritis: Yes Other/Comment: HX: CERVICAL CORD COMPRESSION. HX: CERVICAL STENOSIS. 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, THORACIC REGION - GASTROINTESTINAL Hx Diverticulitis: Yes - GENITOURINARY/GYNECOLOGICAL Hx Genitourinary Disorders: Yes Hx Bladder Stone: Yes Hx Hematuria: Yes Hx Urinary Tract Infection: Yes - PSYCHIATRIC Hx Substance Use: No - SURGICAL HISTORY Hx Surgeries: Yes Other/Comment: HX: FLEXIBLE CYSTOSCOPY(08/28/15) - ANESTHESIA Hx Anesthesia: Yes Hx Anesthesia Reactions: No Meds Allergies/Adverse Reactions: Allergies Allergy/AdvReac Type Severity Reaction Status Date / Time No Known Allergies Allergy Verified 01/13/18 01:29 - Medications Medications: Current Medications Famotidine (Pepcid) 20 mg IVP DAILY [facility] Last Admin: 01/13/18 09:28 Dose: 20 mg Heparin Sodium (Porcine) (Heparin) 5,000 units SC Q8 [facility] Last Admin: 01/13/18 05:29 Dose: 5,000 units Norepinephrine Bitartrate 4 mg (/ Sodium Chloride) 254 mls @ 15.24 mls/hr IV .[id number] PRN; Protocol; 4 MCG/MIN PRN Reason: TITRATE PER MD ORDER Last Titration: 01/13/18 08:13 Dose: 3 mcg/min, 11.43 mls/hr Propofol (Diprivan) 1,000 mg in 100 mls @ 2.776 mls/hr IV .Q24H PRN; Protocol; 5 MCG/KG/MIN PRN Reason: Agitation Last Admin: 01/13/18 12:40 Dose: 30 mcg/kg/min, 16.656 mls/hr Sodium Chloride (Sodium Chloride 0.9%) 1,000 mls @ 70 mls/hr IV .[id number] [facility]JO Last Admin: 01/13/18 10:26 Dose: 70 mls/hr Meropenem 1 gm/ Sodium (Chloride) 100 mls @ 100 mls/hr IVPB Q12H [facility] PRN Reason: Protocol Aztreonam 1 gm/ Sodium (Chloride) 100 mls @ 200 mls/hr IVPB Q8H [facility] PRN Reason: Protocol Ipratropium Slemp (Atrovent) 0.5 mg IH RQ6 PRN PRN Reason: Shortness of Breath Metoprolol Tartrate (Lopressor) 2.5 mg IVP Q6 [facility] Last Admin: 01/13/18 12:29 Dose: Not Given Metoprolol Tartrate (Lopressor) 5 mg IVP ONCE ONE Stop: 01/13/18 14:04 Pneumococcal Polyvalent Vaccine (Pneumovax 23 Vaccine) 0.5 ml IM .ONCE ONE Stop: 01/14/18 10:01 Results - Vital Signs Recent Vital Signs: Last Vital Signs Temp 100.1 F H 01/13/18 12:00 Pulse 78 01/13/18 12:00 Resp 16 01/13/18 12:00 BP 92/59 L 01/13/18 11:59 Pulse Ox 98 01/13/18 12:00 - Labs Result Diagrams: 01/13/18 05:54 01/13/18 05:54 Labs: Laboratory Results - last 24 hr 01/12/18 01/12/18 01/12/18 13:05 20:00 20:20 WBC RBC Hgb Hct MCV MCH MCHC RDW Plt Count MPV Neut % (Auto) Lymph % (Auto) [place] % (Auto) Eos % (Auto) Baso % (Auto) Neut # (Auto) Lymph # (Auto) [place] # (Auto) Eos # (Auto) Baso # (Auto) Neutrophils % (Manual) 68 Band Neutrophils % 12 H* Lymphocytes % (Manual) 14 L Monocytes % (Manual) 6 Platelet Estimate Normal Large Platelets Hypochromasia (manual) Poikilocytosis (manual Anisocytosis (manual) Slight Target Cells D-Dimer, Quantitative 3655 H Puncture Site Rba pCO2 58 H pO2 143 H HCO3 24.5 ABG pH 7.28 L ABG Total CO2 29.1 H ABG O2 Saturation 98.9 H ABG Base Excess -0.6 ABG Hemoglobin ABG Carboxyhemoglobin POC ABG HHb (Measured) ABG Methemoglobin Aníbal Test Pos ABG Potassium 4.2 A-a O2 Difference 212.0 Respiratory Index 1.5 Hgb O2 Saturation Sodium 138.0 Chloride 103.0 Glucose 139 H Lactate 3.2 H Vent Mode Prvc Mechanical Rate 16 FiO2 60.0 Tidal Volume 500 PEEP 5 Potassium Carbon Dioxide Anion Gap BUN Creatinine Est GFR ( Amer) Est GFR (Non-Af Amer) Random Glucose Calcium Phosphorus Magnesium Total Bilirubin AST ALT Alkaline Phosphatase Total Protein Albumin Globulin Albumin/Globulin Ratio Arterial Blood Potassium 4.2 01/13/18 01/13/18 01/13/18 04:25 05:54 05:54 WBC 19.4 H RBC 3.97 L Hgb 10.3 L D Hct 32.5 L MCV 81.8 MCH 25.8 L MCHC 31.6 L RDW 17.0 H Plt Count 196 MPV 7.3 Neut % (Auto) 89.2 H Lymph % (Auto) 3.9 L [place] % (Auto) 6.9 Eos % (Auto) 0.0 Baso % (Auto) 0.0 Neut # (Auto) 17.3 H Lymph # (Auto) 0.8 L [place] # (Auto) 1.3 H Eos # (Auto) 0.0 Baso # (Auto) 0.0 Neutrophils % (Manual) 81 H Band Neutrophils % 11 H* Lymphocytes % (Manual) 3 L Monocytes % (Manual) 5 Platelet Estimate Normal Large Platelets Present Hypochromasia (manual) Slight Poikilocytosis (manual Slight Anisocytosis (manual) Slight Target Cells Slight D-Dimer, Quantitative Puncture Site Rb pCO2 32 L pO2 146 H HCO3 26.0 ABG pH 7.49 H ABG Total CO2 25.4 ABG O2 Saturation 98.2 H ABG Base Excess 1.4 ABG Hemoglobin 10.6 L ABG Carboxyhemoglobin 0.8 POC ABG HHb (Measured) 1.7 ABG Methemoglobin 2.3 Aníbal Test Na ABG Potassium A-a O2 Difference 242.0 Respiratory Index 1.7 Hgb O2 Saturation 95.2 Sodium 139 Chloride 103 Glucose Lactate Vent Mode Prvc Mechanical Rate 20 FiO2 60.0 Tidal Volume 500 PEEP 5 Potassium 3.5 L Carbon Dioxide 29 Anion Gap 10 BUN 38 H Creatinine 1.4 Est GFR ( Amer) 59 Est GFR (Non-Af Amer) 49 Random Glucose 124 H Calcium 7.5 L Phosphorus 3.1 Magnesium 1.8 Total Bilirubin 0.6 AST 30 ALT 27 Alkaline Phosphatase 71 Total Protein 5.6 L Albumin 2.7 L D Globulin 2.9 Albumin/Globulin Ratio 0.9 L Arterial Blood Potassium
[2018-01-13] MEDS ORDERED: Heparin 5,000 UNITS in Sodium Chloride 0.9% 500 ML IV ONE (14:33)
[2018-01-13 15:31] LABS: INR 1.4; PROTHROMBIN TIME 15.7 SECONDS (9.7-12.2)
[2018-01-13] MEDS: Heparin25000 units/250ml 1/2NS 25,000 UNITS/250 ML BAG IV PRN (16:12)
[2018-01-13] MEDS: Meropenem 1 GM in Sodium Chloride 0.9% 100 ML IVPB SCH (16:19)
--- NOTE | 2018-01-13 16:29 | CARD ---
APPROVED REPORT Date of service: 01/13/2018 EXAM: Two-dimensional and M-mode echocardiogram with Doppler and color Doppler. Other Information Quality : Technically LimitedRhythm : INDICATION Atrial Fibrillation Infection:Rule out subacute bacterial endocarditis LEFT VENTRICLE The left ventricle is not well visualized. RIGHT VENTRICLE The right ventricle is moderately dilated. The right ventricular systolic function appears preserved. ATRIA The left atrium is not well visualized. The right atrium is moderately dilated. AORTIC VALVE The aortic valve is not well visualized. MITRAL VALVE The mitral valve is not well visualized. TRICUSPID VALVE The tricuspid valve is normal in structure. There is moderate tricuspid regurgitation. Right ventricular systolic pressure is estimated at - 45-50 mmHg. There is moderate pulmonary hypertension. PULMONIC VALVE The pulmonic valve is not well visualized. GREAT VESSELS The IVC is dilated but collapses normally PERICARDIAL EFFUSION There is no gross pericardial effusion. <Conclusion> SUBOPTIMAL STUDY - TECHNICALLY VERY DIFFICULT STUDY DUE TO POOR ACOUSTIC WINDOWS The left ventricle is not well visualized. The right ventricle is moderately dilated. The right ventricular systolic function appears preserved. The right atrium is moderately dilated. The tricuspid valve is normal in structure. There is moderate tricuspid regurgitation. Right ventricular systolic pressure is estimated at - 45-50 mmHg compatible with moderate pulmonary hypertension. There is no gross pericardial effusion. The IVC is dilated but collapses normally
--- NOTE | 2018-01-13 17:39 | CARD ---
APPROVED REPORT Date of service: 01/12/2018 EKG Measurement Heart [id number] <Conclusion> Atrial fibrillation with rapid ventricular response with premature ventricular or aberrantly conducted complexes Abnormal QRS-T angle, consider primary T wave abnormality Abnormal ECG
--- NOTE | 2018-01-13 17:41 | CARD ---
APPROVED REPORT Date of service: 01/12/2018 EKG Measurement Heart [id number] <Conclusion> Sinus rhythm with premature atrial complexes Low voltage Borderline EKG
[2018-01-13] MEDS: Aztreonam 1 GM in Sodium Chloride 0.9% 100 ML IVPB SCH (17:47)
[2018-01-13] MEDS ORDERED: Aztreonam 1 GM in Sodium Chloride 0.9% 100 ML IVPB SCH (18:00)
--- NOTE | 2018-01-13 18:05 | PCM.PROC ---
Procedures Attestation:: I certify that I have explained the specified Operation(s) or Procedure(s), risks, benefits and reasonable alternatives to the Patient and/or other person responsible. The opportunity was given to ask questions and all questions answered - Intubation Time Out Performed: Yes Sedative: Etomidate Mg Given: 20 Paralytic: Succinylholine Mg Given: 50 Laryngoscope: Oscar ET Tube Size: 8.0 ET Tube Uncuffed: No ET Tube Secured at Depth: 22 ET Tube Secured [place]: Lips ET Tube Placement Confirmation: Visualized Passing Through Cords, Breath Sounds Equal Bilaterally, No Breath Sounds Over Epigastrum, Confirmation w/Capnometry Patient Tolerated Procedure: Well Procedure Immediate Complications: None
--- NOTE | 2018-01-13 18:10 | CP.PCM.PN ---
<Marily Farris E - Last Filed: 01/13/18 18:08> Subjective - Date & Time of Evaluation Date of Evaluation: 01/13/18 Time of Evaluation: 09:10 - Subjective Subjective: Cardiology progress note ( Dr. Blanco's service) Patient was seen and examined at bedside. Unable to obtain ROS or HPI due to patient's current status. Objective - Vital Signs/Intake and Output Vital Signs (last 24 hours): Temp Pulse Resp BP Pulse Ox 100.0 F H 174 H 24 102/67 95 01/13/18 16:00 01/13/18 17:00 01/13/18 17:00 01/13/18 17:00 01/13/18 17:00 Intake and Output: 01/13/18 01/13/18 06:59 18:59 Intake Total 4072.3 2460.5 Output Total 871 830 Balance 3201.3 1630.5 - Medications Medications: Current Medications Famotidine (Pepcid) 20 mg IVP DAILY [facility] Last Admin: 01/13/18 09:28 Dose: 20 mg Heparin Sodium (Porcine) (Heparin) 5,000 units SC Q8 [facility] Last Admin: 01/13/18 14:42 Dose: Not Given Norepinephrine Bitartrate 4 mg (/ Sodium Chloride) 254 mls @ 15.24 mls/hr IV .[id number] PRN; Protocol; 4 MCG/MIN PRN Reason: TITRATE PER MD ORDER Last Titration: 01/13/18 16:30 Dose: 7 mcg/min, 26.67 mls/hr Propofol (Diprivan) 1,000 mg in 100 mls @ 2.776 mls/hr IV .Q24H PRN; Protocol; 5 MCG/KG/MIN PRN Reason: Agitation Last Admin: 01/13/18 12:40 Dose: 30 mcg/kg/min, 16.656 mls/hr Sodium Chloride (Sodium Chloride 0.9%) 1,000 mls @ 70 mls/hr IV .[id number] [facility] Last Admin: 01/13/18 10:26 Dose: 70 mls/hr Meropenem 1 gm/ Sodium (Chloride) 100 mls @ 100 mls/hr IVPB Q12H [facility] PRN Reason: Protocol Last Admin: 01/13/18 16:19 Dose: 100 mls/hr Heparin Sodium/Sodium Chloride (Heparin 17826 Units/250ml 1/2 Normal Saline) 25 ,000 units in 250 mls @ 16.248 mls/hr IV .[id number] PRN; Protocol; 18 UNITS/KG/HR PRN Reason: PROTOCOL Last Admin: 01/13/18 16:12 Dose: 18 units/kg/hr, 16.248 mls/hr Amiodarone HCl 900 mg/ (Dextrose) 500 mls @ 33.33 mls/hr IV .Q15H1M ONE; 1 MG/ MIN PRN Reason: Protocol Stop: 01/14/18 06:28 Last Admin: 01/13/18 16:06 Dose: 33.33 mls/hr Amiodarone HCl 900 mg/ (Dextrose) 500 mls @ 16.66 mls/hr IV .Q24H ONE; 0.5 MG/ MIN PRN Reason: Protocol Stop: 01/14/18 21:29 Aztreonam 1 gm/ Sodium (Chloride) 100 mls @ 200 mls/hr IVPB Q8H [facility] PRN Reason: Protocol Last Admin: 01/13/18 17:47 Dose: 200 mls/hr Ipratropium [place] (Atrovent) 0.5 mg IH RQ6 PRN PRN Reason: Shortness of Breath Metoprolol Tartrate (Lopressor) 2.5 mg IVP Q6 [facility] Last Admin: 01/13/18 12:29 Dose: Not Given Pneumococcal Polyvalent Vaccine (Pneumovax 23 Vaccine) 0.5 ml IM .ONCE ONE Stop: 01/14/18 10:01 - Labs Labs: 01/13/18 05:54 01/13/18 05:54 PT 15.7 SECONDS (9.7-12.2) H 01/13/18 15:13 INR 1.4 01/13/18 15:13 APTT 33 SECONDS (21-34) 01/13/18 15:13 - Head Exam Head Exam: ATRAUMATIC - Respiratory Exam Additional comments: Intubated - Cardiovascular Exam Cardiovascular Exam: REGULAR RHYTHM - GI/Abdominal Exam GI & Abdominal Exam: Soft, Normal Bowel Sounds - Extremities Exam Additional comments: Left pedal edema Assessment and Plan (1) Atrial fibrillation with rapid ventricular response Assessment & Plan: Lopressor 2.5 IV Q6H Amiodarone 900mg IV q24h Status: Acute (2) SVT (supraventricular tachycardia) Assessment & Plan: Cardioversion X2 Lopressor 2.5 IV Q6H Amiodarone 900mg IV q24h Status: Acute (3) Sepsis Assessment & Plan: Tmax:100.6 Tachycardia WBC: down trending with bandemia UA: 3+ LE and WBC: 1186 Blood culture: Gram negative rods Medications: * Aztreonam 1gm IV Q8H * Meropenem 1gm IV Q12H Status: Acute (4) D-dimer, elevated Assessment & Plan: 3655 F/U CT and venous doppler Heparin drip initiated Status: Acute (5) Prophylactic measure Assessment & Plan: DVT: Heparin drip GI: Pepcid 20mg IV daily All plans and management discussed with Dr. Blanco Status: Acute <Aaron Blanco - Last Filed: 01/13/18 22:01> Objective - Vital Signs/Intake and Output Vital Signs (last 24 hours): Temp Pulse Resp BP Pulse Ox 99 F 77 16 131/73 98 01/13/18 20:00 01/13/18 21:15 01/13/18 21:15 01/13/18 21:15 01/13/18 21:15 Intake and Output: 01/13/18 01/14/18 18:59 06:59 Intake Total 2743.2 524.5 Output Total 1130 180 Balance 1613.2 344.5 - Medications Medications: Current Medications Famotidine (Pepcid) 20 mg IVP DAILY [facility] Last Admin: 01/13/18 09:28 Dose: 20 mg Heparin Sodium (Porcine) (Heparin) 5,000 units SC Q8 [facility] Last Admin: 01/13/18 14:42 Dose: Not Given Norepinephrine Bitartrate 4 mg (/ Sodium Chloride) 254 mls @ 15.24 mls/hr IV .[id number] PRN; Protocol; 4 MCG/MIN PRN Reason: TITRATE PER MD ORDER Last Titration: 01/13/18 16:30 Dose: 7 mcg/min, 26.67 mls/hr Propofol (Diprivan) 1,000 mg in 100 mls @ 2.776 mls/hr IV .Q24H PRN; Protocol; 5 MCG/KG/MIN PRN Reason: Agitation Last Admin: 01/13/18 18:24 Dose: 30 mcg/kg/min, 16.656 mls/hr Sodium Chloride (Sodium Chloride 0.9%) 1,000 mls @ 70 mls/hr IV .[id number] [facility] Last Admin: 01/13/18 10:26 Dose: 70 mls/hr Meropenem 1 gm/ Sodium (Chloride) 100 mls @ 100 mls/hr IVPB Q12H [facility] PRN Reason: Protocol Last Admin: 01/13/18 16:19 Dose: 100 mls/hr Heparin Sodium/Sodium Chloride (Heparin 44469 Units/250ml 1/2 Normal Saline) 25 ,000 units in 250 mls @ 16.248 mls/hr IV .[id number] PRN; Protocol; 18 UNITS/KG/HR PRN Reason: PROTOCOL Last Admin: 01/13/18 16:12 Dose: 18 units/kg/hr, 16.248 mls/hr Amiodarone HCl 900 mg/ (Dextrose) 500 mls @ 33.33 mls/hr IV .Q15H1M ONE; 1 MG/ MIN PRN Reason: Protocol Stop: 01/14/18 06:28 Last Admin: 01/13/18 16:06 Dose: 33.33 mls/hr Amiodarone HCl 900 mg/ (Dextrose) 500 mls @ 16.66 mls/hr IV .Q24H ONE; 0.5 MG/ MIN PRN Reason: Protocol Stop: 01/14/18 21:29 Aztreonam 1 gm/ Sodium (Chloride) 100 mls @ 200 mls/hr IVPB Q8H [facility] PRN Reason: Protocol Last Admin: 01/13/18 17:47 Dose: 200 mls/hr Ipratropium [place] (Atrovent) 0.5 mg IH RQ6 PRN PRN Reason: Shortness of Breath Metoprolol Tartrate (Lopressor) 2.5 mg IVP Q6 [facility] Last Admin: 01/13/18 18:26 Dose: Not Given Pneumococcal Polyvalent Vaccine (Pneumovax 23 Vaccine) 0.5 ml IM .ONCE ONE Stop: 01/14/18 10:01 - Labs Labs: 01/13/18 05:54 01/13/18 20:17 PT 15.7 SECONDS (9.7-12.2) H 01/13/18 15:13 INR 1.4 01/13/18 15:13 APTT 33 SECONDS (21-34) 01/13/18 15:13 Assessment and Plan - Assessment and Plan (Free Text) Assessment: Patient seen and evaluated personally by me. Plan of care d/w the medical practice assistant and as documented
[2018-01-13 20:37] LABS: BLOOD UREA NITROGEN 32 mg/dL (9-20); CALCIUM 7.5 mg/dl (8.6-10.4); GFR NON-AFRICAN AMERICAN 53
--- NOTE | 2018-01-13 21:59 | CP.PCM.PN ---
Subjective - Date & Time of Evaluation Date of Evaluation: 01/13/18 Time of Evaluation: 13:00 - Subjective Subjective: clinically same Objective - Vital Signs/Intake and Output Vital Signs (last 24 hours): Temp Pulse Resp BP Pulse Ox 99 F 77 16 131/73 98 01/13/18 20:00 01/13/18 21:15 01/13/18 21:15 01/13/18 21:15 01/13/18 21:15 Intake and Output: 01/13/18 01/14/18 18:59 06:59 Intake Total 2743.2 524.5 Output Total 1130 180 Balance 1613.2 344.5 - Medications Medications: Current Medications Famotidine (Pepcid) 20 mg IVP DAILY [facility] Last Admin: 01/13/18 09:28 Dose: 20 mg Heparin Sodium (Porcine) (Heparin) 5,000 units SC Q8 [facility] Last Admin: 01/13/18 14:42 Dose: Not Given Norepinephrine Bitartrate 4 mg (/ Sodium Chloride) 254 mls @ 15.24 mls/hr IV .[id number] PRN; Protocol; 4 MCG/MIN PRN Reason: TITRATE PER MD ORDER Last Titration: 01/13/18 16:30 Dose: 7 mcg/min, 26.67 mls/hr Propofol (Diprivan) 1,000 mg in 100 mls @ 2.776 mls/hr IV .Q24H PRN; Protocol; 5 MCG/KG/MIN PRN Reason: Agitation Last Admin: 01/13/18 18:24 Dose: 30 mcg/kg/min, 16.656 mls/hr Sodium Chloride (Sodium Chloride 0.9%) 1,000 mls @ 70 mls/hr IV .[id number] [facility] Last Admin: 01/13/18 10:26 Dose: 70 mls/hr Meropenem 1 gm/ Sodium (Chloride) 100 mls @ 100 mls/hr IVPB Q12H [facility] PRN Reason: Protocol Last Admin: 01/13/18 16:19 Dose: 100 mls/hr Heparin Sodium/Sodium Chloride (Heparin 41186 Units/250ml 1/2 Normal Saline) 25 ,000 units in 250 mls @ 16.248 mls/hr IV .[id number] PRN; Protocol; 18 UNITS/KG/HR PRN Reason: PROTOCOL Last Admin: 01/13/18 16:12 Dose: 18 units/kg/hr, 16.248 mls/hr Amiodarone HCl 900 mg/ (Dextrose) 500 mls @ 33.33 mls/hr IV .Q15H1M ONE; 1 MG/ MIN PRN Reason: Protocol Stop: 01/14/18 06:28 Last Admin: 01/13/18 16:06 Dose: 33.33 mls/hr Amiodarone HCl 900 mg/ (Dextrose) 500 mls @ 16.66 mls/hr IV .Q24H ONE; 0.5 MG/ MIN PRN Reason: Protocol Stop: 01/14/18 21:29 Aztreonam 1 gm/ Sodium (Chloride) 100 mls @ 200 mls/hr IVPB Q8H [facility] PRN Reason: Protocol Last Admin: 01/13/18 17:47 Dose: 200 mls/hr Ipratropium [place] (Atrovent) 0.5 mg IH RQ6 PRN PRN Reason: Shortness of Breath Metoprolol Tartrate (Lopressor) 2.5 mg IVP Q6 [facility] Last Admin: 01/13/18 18:26 Dose: Not Given Pneumococcal Polyvalent Vaccine (Pneumovax 23 Vaccine) 0.5 ml IM .ONCE ONE Stop: 01/14/18 10:01 - Labs Labs: 01/13/18 05:54 01/13/18 20:17 PT 15.7 SECONDS (9.7-12.2) H 01/13/18 15:13 INR 1.4 01/13/18 15:13 APTT 33 SECONDS (21-34) 01/13/18 15:13 - Constitutional Appears: Well - Head Exam Head Exam: ATRAUMATIC, NORMAL INSPECTION, NORMOCEPHALIC - Eye Exam Eye Exam: EOMI, Normal appearance, PERRL Pupil Exam: NORMAL ACCOMODATION, PERRL - ENT Exam ENT Exam: Mucous Membranes Moist, Normal Exam - Neck Exam Neck Exam: Full ROM, Normal Inspection. absent: Lymphadenopathy - Respiratory Exam Respiratory Exam: Decreased Breath Sounds - Cardiovascular Exam Cardiovascular Exam: REGULAR RHYTHM, +S1, +S2 - GI/Abdominal Exam GI & Abdominal Exam: Soft, Diminished Bowel Sounds - Rectal Exam Rectal Exam: Deferred Assessment and Plan (1) Atrial fibrillation Status: Acute (2) Fever Status: Acute (3) Mental status alteration Status: Acute (4) UTI (urinary tract infection) Status: Acute (5) BPH (benign prostatic hyperplasia) Status: Acute (6) COPD (chronic obstructive pulmonary disease) Status: Acute (7) Congestive heart failure (CHF) Status: Acute (8) GERD (gastroesophageal reflux disease) Status: Acute (9) Hematuria Status: Acute (10) Hypertension Status: Acute (11) Pneumonia Status: Acute (12) Urinary retention Status: Acute
[2018-01-14] MEDS: Propofol 10 mg/ml 1,000 MG/100 ML VIAL IV PRN ×6 (00:30→20:30)
[2018-01-14] MEDS: Aztreonam 1 GM in Sodium Chloride 0.9% 100 ML IVPB SCH ×3 (00:44→16:09)
[2018-01-14] MEDS: Sodium Chloride 0.9% 1,000 ML IV SCH ×2 (01:00→13:58)
[2018-01-14] MEDS: Meropenem 1 GM in Sodium Chloride 0.9% 100 ML IVPB SCH ×3 (03:00→23:02)
[2018-01-14 05:47] LABS: ARTERIAL BLOOD GAS HCO3 24.3 mmol/L (21-28); ARTERIAL BLOOD GAS HEMOGLOBIN 11.2 g/dL (11.7-17.4); ARTERIAL BLOOD GAS O2 SAT 98.8 % (95-98); ARTERIAL BLOOD GAS PCO2 50 mm/Hg (35-45); ARTERIAL BLOOD GAS PH 7.32 (7.35-7.45); ARTERIAL BLOOD GAS PO2 131 mm/Hg (80-100); ARTERIAL BLOOD GAS TCO2 27.3 mmol/L (22-28)
[2018-01-14 06:03] LABS: BASO % 0.1 % (0.0-2.0); EOS # 0.1 K/uL (0.0-0.7); EOS % 0.3 % (0.0-4.0); HEMOGLOBIN 10.8 g/dL (12.0-18.0); LYMPH # 1.4 K/uL (1.0-4.3); LYMPH % 6.2 % (20.0-40.0); MEAN CELL VOLUME 82.6 fL (80.0-94.0); MEAN CORPUSCULAR HEMOGLOBIN 25.6 pg (27.0-31.0); MEAN PLATELET VOLUME 7.2 fL (7.2-11.7); MONO # 1.1 K/uL (0.0-0.8); MONO % 5.1 % (0.0-10.0); NEUT # 19.6 K/uL (1.8-7.0); NEUT % 88.3 % (50.0-75.0); PLATELET COUNT 218 K/uL (130-400); RBC 4.23 Mil/uL (4.40-5.90); RED CELL DISTRIBUTION WIDTH 17.2 % (11.5-14.5); WHITE BLOOD COUNT 22.3 K/uL (4.8-10.8)
[2018-01-14 06:22] LABS: ALB/GLOB RATIO 0.9 (1.0-2.1); ALBUMIN 2.9 g/dL (3.5-5.0); ALT/SGPT 28 U/L (21-72); AST/SGOT 40 U/L (17-59); BLOOD UREA NITROGEN 28 mg/dL (9-20); CALCIUM 7.6 mg/dl (8.6-10.4); GFR NON-AFRICAN AMERICAN 59
[2018-01-14] MEDS: Metoprolol 1 mg/ml Inj IVP SCH ×3 (06:28→17:53)
[2018-01-14] MEDS: Heparin25000 units/250ml 1/2NS 25,000 UNITS/250 ML BAG IV PRN (06:30)
[2018-01-14] MEDS ORDERED: Potassium Chloride 20 mEq/15 ml LIQ UD PO ONE (08:00)
[2018-01-14 08:35] LABS: BANDS 23 % (0-2); BASOPHIL 1 % (0-2); LYMPHOCYTE 7 % (20-40); MONOCYTE 2 % (0-10); NEUTROPHIL 67 % (50-75); PLATELET ESTIMATE NORMAL (NORMAL); TOTAL CELLS COUNTED 100
[2018-01-14 08:36] LABS: ANISOCYTOSIS SLIGHT; BURR CELLS SLIGHT; HYPOCHROMIC SLIGHT; OVALOCYTES SLIGHT; POIKILOCYTOSIS SLIGHT; TARGET CELLS SLIGHT
[2018-01-14 08:37] LABS: LARGE PLATELETS PRESENT
[2018-01-14] MEDS ORDERED: Pneumococcal 23-Valent Vaccine IM ONE (10:00)
[2018-01-14] MEDS ORDERED: Vancomycin 1 gm/NS 200 ml 1 GM/200 ML BAG IVPB ONE (10:09)
--- NOTE | 2018-01-14 11:49 | RAD ---
Date of service: 01/14/2018 HISTORY: intubated COMPARISON: 01/13/2018 FINDINGS: LUNGS: The vague low-density opacity in the medial right lung base is similar a interval infiltrate here is a consideration. Its conspicuity is probably increased without any confounding overlying external leads here. An area of coalescent asymmetrical pulmonary edema is another consideration. Endotracheal tube tip approximately 3 cm from the ze. PLEURA: The prior left pleural effusion has decreased. . No pneumothorax apparent. CARDIOVASCULAR: Cardiomegaly-similar. External carotid device is in place. Pulmonary venous congestion -similar. OSSEOUS STRUCTURES: Bilateral shoulder arthrosis. Partially visualized-cervical fusion hardware VISUALIZED UPPER ABDOMEN: NG tube tip stomach. OTHER FINDINGS: None. IMPRESSION: Interval decrease left pleural effusion. Vague low-density nonspecific opacity right medial lung base patchy infiltrate versus coalescent asymmetrical focal pulmonary edema are considerations. Cardiomegaly and pulmonary venous congestion -both similar. Support tubes and lines as above.
--- NOTE | 2018-01-14 14:39 | CP.PCM.PN ---
<Marily Farris E - Last Filed: 01/14/18 14:36> Subjective - Date & Time of Evaluation Date of Evaluation: 01/14/18 Time of Evaluation: 10:10 - Subjective Subjective: Cardiology progress note ( Dr. Blanco's service) Patient was seen and examined at bedside. Unable to obtain ROS or HPI due to patient's current status. No acute changes. Objective - Vital Signs/Intake and Output Vital Signs (last 24 hours): Temp Pulse Resp BP Pulse Ox 97.7 F 73 18 112/61 97 01/14/18 12:00 01/14/18 14:33 01/14/18 14:33 01/14/18 14:33 01/14/18 14:33 Intake and Output: 01/14/18 01/14/18 06:59 18:59 Intake Total 2870.796 1678.834 Output Total 700 770 Balance 2170.796 908.834 - Medications Medications: Current Medications Famotidine (Pepcid) 20 mg IVP DAILY [facility] Last Admin: 01/14/18 09:20 Dose: 20 mg Heparin Sodium (Porcine) (Heparin) 5,000 units SC Q8 [facility] Last Admin: 01/13/18 14:42 Dose: Not Given Norepinephrine Bitartrate 4 mg (/ Sodium Chloride) 254 mls @ 15.24 mls/hr IV .[id number] PRN; Protocol; 4 MCG/MIN PRN Reason: TITRATE PER MD ORDER Last Titration: 01/14/18 06:00 Dose: 3 mcg/min, 11.43 mls/hr Propofol (Diprivan) 1,000 mg in 100 mls @ 2.776 mls/hr IV .Q24H PRN; Protocol; 5 MCG/KG/MIN PRN Reason: Agitation Last Titration: 01/14/18 13:00 Dose: 50 mcg/kg/min, 27.76 mls/hr Sodium Chloride (Sodium Chloride 0.9%) 1,000 mls @ 70 mls/hr IV .[id number] [facility] Last Admin: 01/14/18 13:58 Dose: 70 mls/hr Meropenem 1 gm/ Sodium (Chloride) 100 mls @ 100 mls/hr IVPB Q12H [facility] PRN Reason: Protocol Last Admin: 01/14/18 03:00 Dose: 100 mls/hr Heparin Sodium/Sodium Chloride (Heparin 93490 Units/250ml 1/2 Normal Saline) 25 ,000 units in 250 mls @ 16.248 mls/hr IV .[id number] PRN; Protocol; 18 UNITS/KG/HR PRN Reason: PROTOCOL Last Admin: 01/14/18 06:30 Dose: 13 units/kg/hr, 11.734 mls/hr Amiodarone HCl 900 mg/ (Dextrose) 500 mls @ 16.66 mls/hr IV .Q24H ONE; 0.5 MG/ MIN PRN Reason: Protocol Stop: 01/14/18 21:29 Last Admin: 01/13/18 22:20 Dose: 16.66 mls/hr Aztreonam 1 gm/ Sodium (Chloride) 100 mls @ 200 mls/hr IVPB Q8H [facility] PRN Reason: Protocol Last Admin: 01/14/18 08:37 Dose: 200 mls/hr Ipratropium [place] (Atrovent) 0.5 mg IH RQ6 PRN PRN Reason: Shortness of Breath Metoprolol Tartrate (Lopressor) 2.5 mg IVP Q6 [facility] Last Admin: 01/14/18 12:04 Dose: 2.5 mg - Labs Labs: 01/14/18 05:51 01/14/18 05:51 PT 15.7 SECONDS (9.7-12.2) H 01/13/18 15:13 INR 1.4 01/13/18 15:13 APTT 87 SECONDS (21-34) H D 01/14/18 12:35 - Constitutional Appears: Non-toxic - Head Exam Head Exam: ATRAUMATIC - Respiratory Exam Respiratory Exam: NORMAL BREATHING PATTERN Additional comments: Intubated - Cardiovascular Exam Cardiovascular Exam: REGULAR RHYTHM - GI/Abdominal Exam GI & Abdominal Exam: Soft, Normal Bowel Sounds. absent: Guarding, Rigid, Tenderness - Extremities Exam Additional comments: Left pedal edema Assessment and Plan (1) Atrial fibrillation with rapid ventricular response Assessment & Plan: Lopressor 2.5 IV Q6H Amiodarone 900mg IV q24h ---> Switch to 200mg PO BID if tolerable Echocardiogram: Suboptimal study. Please refer to the EMR for complete impression Status: Acute (2) SVT (supraventricular tachycardia) Assessment & Plan: Cardioversion > X2 Lopressor 2.5 IV Q6H Amiodarone 900mg IV q24h --> Switch to 200mg PO BID if tolerable Status: Acute (3) Sepsis Assessment & Plan: Tmax:100.6 Tachycardia WBC: down trending with bandemia UA: 3+ LE and WBC: 1186 Blood culture: Gram negative rods Medications: * Aztreonam 1gm IV Q8H * Meropenem 1gm IV Q12H Status: Acute (4) D-dimer, elevated Assessment & Plan: D-dimer : [address]: Not completed due to patient's condition Heparin drip initiated Status: Acute (5) Prophylactic measure Assessment & Plan: DVT: Heparin drip GI: Pepcid 20mg IV daily All plans and management discussed with Dr. Blanco Status: Acute <Aaron Blanco - Last Filed: 01/14/18 21:27> Objective - Vital Signs/Intake and Output Vital Signs (last 24 hours): Temp Pulse Resp BP Pulse Ox 98.7 F 70 18 107/60 96 01/14/18 20:00 01/14/18 20:30 01/14/18 20:30 01/14/18 20:30 01/14/18 20:30 Intake and Output: 01/14/18 01/15/18 18:59 06:59 Intake Total 2530.664 444.6 Output Total 1045 105 Balance 1485.664 339.6 - Medications Medications: Current Medications Amiodarone HCl (Cordarone) 200 mg PO BID [facility] Last Admin: 01/14/18 17:53 Dose: 200 mg Famotidine (Pepcid) 20 mg IVP DAILY [facility] Last Admin: 01/14/18 09:20 Dose: 20 mg Heparin Sodium (Porcine) (Heparin) 5,000 units SC Q8 [facility] Last Admin: 01/13/18 14:42 Dose: Not Given Norepinephrine Bitartrate 4 mg (/ Sodium Chloride) 254 mls @ 15.24 mls/hr IV .[id number] PRN; Protocol; 4 MCG/MIN PRN Reason: TITRATE PER MD ORDER Last Titration: 01/14/18 20:00 Dose: 1 mcg/min, 3.81 mls/hr Propofol (Diprivan) 1,000 mg in 100 mls @ 2.776 mls/hr IV .Q24H PRN; Protocol; 5 MCG/KG/MIN PRN Reason: Agitation Last Admin: 01/14/18 20:30 Dose: 40 mcg/kg/min, 22.208 mls/hr Sodium Chloride (Sodium Chloride 0.9%) 1,000 mls @ 70 mls/hr IV .[id number] [facility] Last Admin: 01/14/18 13:58 Dose: 70 mls/hr Heparin Sodium/Sodium Chloride (Heparin 93957 Units/250ml 1/2 Normal Saline) 25 ,000 units in 250 mls @ 16.248 mls/hr IV .[id number] PRN; Protocol; 18 UNITS/KG/HR PRN Reason: PROTOCOL Last Admin: 01/14/18 06:30 Dose: 13 units/kg/hr, 11.734 mls/hr Aztreonam 1 gm/ Sodium (Chloride) 100 mls @ 200 mls/hr IVPB Q8H [facility] PRN Reason: Protocol Last Admin: 01/14/18 16:09 Dose: 200 mls/hr Meropenem 1 gm/ Sodium (Chloride) 100 mls @ 100 mls/hr IVPB Q8H [facility] PRN Reason: Protocol Ipratropium [place] (Atrovent) 0.5 mg IH RQ6 PRN PRN Reason: Shortness of Breath Metoprolol Tartrate (Lopressor) 2.5 mg IVP Q6 [facility] Last Admin: 01/14/18 17:53 Dose: 2.5 mg Potassium Chloride (Klor-Con 10) 10 meq PO BRK [facility] Last Admin: 01/14/18 18:26 Dose: 10 meq - Labs Labs: 01/14/18 05:51 01/14/18 05:51 PT 15.7 SECONDS (9.7-12.2) H 01/13/18 15:13 INR 1.4 01/13/18 15:13 APTT 75 SECONDS (21-34) H D 01/14/18 18:15 Assessment and Plan - Assessment and Plan (Free Text) Assessment: Patient seen and evaluated personally by co Plan of care d/w the director medical science and as documented
[2018-01-14 14:42] LABS: ARTERIAL BLOOD GAS PCO2 42 mm/Hg (35-45); ARTERIAL BLOOD GAS PH 7.33 (7.35-7.45); ARTERIAL BLOOD GAS PO2 100 mm/Hg (80-100); ARTERIAL BLOOD GAS TCO2 23.4 mmol/L (22-28)
--- NOTE | 2018-01-14 14:47 | CP.CCUPN ---
<Yamil Corona - Last Filed: 01/14/18 16:44> CCU Subjective - Physician Review Subjective (Free Text): 01/13/18 11:33 ICU Progress note Patient seen and examined at bedside. Patient is sedated and intubated. Unable to provide history. CCU Objective - Vital Signs / Intake & Output Vital Signs (Last 4 hours): Vital Signs Temp Pulse Resp BP Pulse Ox 01/14/18 14:33 73 18 112/61 97 01/14/18 14:30 75 19 96 01/14/18 14:18 75 16 102/69 96 01/14/18 14:00 82 16 95 01/14/18 13:30 73 22 01/14/18 13:00 84 19 96 01/14/18 12:34 82 20 95/60 L 95 01/14/18 12:30 83 20 95 01/14/18 12:00 97.7 F 81 20 96 01/14/18 11:34 74 18 102/56 L 96 01/14/18 11:30 74 19 96 01/14/18 11:00 83 19 95 Intake and Output (Last 8hrs): Intake & Output 01/13/18 01/14/18 01/14/18 22:59 06:59 14:59 Intake Total 1608.47 2146.526 1618.834 Output Total 680 470 770 Balance 928.47 1676.526 848.834 Weight 202 lb 11.2 oz Intake: IV 162 799.996 140.284 Intake, IV Amount 1366.47 1231.53 1153.55 LFA #18 97.2 116.10 87.75 Left Forearm 16.6 Left Hand 11.7 Left Wrist 299.8 133.6 133.6 Right Distal Port Femoral 138.87 157.8 171.4 Right Medial Port Femoral 190.6 204.03 52.5 Right Proximal Port 640 620.0 680 Femoral Oral 70 Tube Feeding 10 65 245 Other 50 80 Output: Urine 680 470 770 Urethral (Olivares) 680 470 770 Other: # Bowel Movements 0 0 0 - Physical Exam Physical Exam Limitations: Positive for: Altered Mental Status Head: Positive for: Atraumatic, Normocephalic Mouth: Positive for: Dry, Other (ETT in place) Nose (External): Positive for: Atraumatic Respiratory/Chest: Positive for: Decreased Breath Sounds. Negative for: Respiratory Distress (Vented) Cardiovascular: Positive for: Normal S1, S2, Other (Has not gone into SVT today) Abdomen: Positive for: Normal Bowel Sounds, Other (Olivares draining brown urine. R femoral TLC in place. ). Negative for: Tenderness Lower Extremity: Positive for: Edema (Edema of left lower extremity. Unable to palpate DP pulses secondary to edema. Right ), Other (Right lower extremity: Doralis pedis pulse present) Neurological: Positive for: Other (Altered) Psychiatric: Positive for: Other (Altered) - Medications Active Medications: Active Medications Generic Name Dose Route Start Last Admin Trade Name Freq PRN Reason Stop Dose Admin Famotidine 20 mg 01/13/18 10:00 01/14/18 09:20 Pepcid IVP 20 mg DAILY JOJO Administration Heparin Sodium (Porcine) 5,000 units 01/12/18 22:00 01/13/18 14:42 Heparin SC Not Given Q8 JOJO Norepinephrine Bitartrate 4 mg 254 mls @ 15.24 mls/hr 01/12/18 15:34 06:00 / Sodium Chloride IV 3 mcg/min .[id number] PRN 11.43 mls/hr TITRATE PER MD ORDER Titration Protocol 4 MCG/MIN Propofol 1,000 mg in 100 mls @ 2.776 mls/hr 01/12/18 19:21 01/14/18 13:00 Diprivan IV 50 mcg/kg/min .Q24H PRN 27.76 mls/hr Agitation Titration Protocol 5 MCG/KG/MIN Sodium Chloride 1,000 mls @ 70 mls/hr 01/13/18 10:15 01/14/18 13:58 Sodium Chloride 0.9% IV 70 mls/hr .[id number] JOJO Administration Meropenem 1 gm/ Sodium 100 mls @ 100 mls/hr 01/13/18 16:00 01/14/18 03:00 Chloride IVPB 100 mls/hr Q12H JOJO Administration Protocol Heparin Sodium/Sodium Chloride 25,000 units in 250 mls @ 16.248 mls/hr 16:00 01/14/18 06:30 Heparin 79025 Units/250ml 1/2 Normal Saline IV 13 units/kg/hr .[id number] PRN 11.734 mls/hr PROTOCOL Administration Protocol 18 UNITS/KG/HR Amiodarone HCl 900 mg/ 500 mls @ 16.66 mls/hr 01/13/18 21:30 01/13/18 22:20 Dextrose IV 01/14/18 21:29 16.66 mls/hr .Q24H ONE Administration Protocol 0.5 MG/MIN Aztreonam 1 gm/ Sodium 100 mls @ 200 mls/hr 01/13/18 17:00 01/14/18 08:37 Chloride IVPB 200 mls/hr Q8H JOJO Administration Protocol Ipratropium Amanda 0.5 mg 01/12/18 19:03 Atrovent IH RQ6 PRN Shortness of Breath Metoprolol Tartrate 2.5 mg 01/13/18 12:00 01/14/18 12:04 Lopressor IVP 2.5 mg Q6 JOJO Administration - Patient Studies Lab Studies: Microbiology Studies 01/13/18 15:13 Gram Stain - Final Trachasp 01/12/18 19:07 MRSA Culture (Admit) - Final Nose MRSA NOT DETECTED 01/12/18 13:36 Urine Culture - Final Urine,Catheterized MULTIPLE SPECIES. SUGGEST REPEAT SPECIMEN. 01/13/18 05:55 Gram Stain - Preliminary Sputum 01/12/18 12:50 Blood Culture - Preliminary Blood Gram Negative Cuong Gram Stain - Preliminary 01/12/18 12:53 Blood Culture - Preliminary Blood Gram Negative Cuong Gram Stain - Preliminary Lab Studies 01/14/18 01/14/18 01/14/18 Range/Units 14:33 12:35 05:51 WBC (4.8-10.8) K/uL RBC (4.40-5.90) Mil/uL Hgb (12.0-18.0) g/dL Hct (35.0-51.0) % MCV (80.0-94.0) fL MCH (27.0-31.0) pg MCHC (33.0-37.0) g/dL RDW (11.5-14.5) % Plt Count (130-400) K/uL MPV (7.2-11.7) fL Neut % (Auto) (50.0-75.0) % Lymph % (Auto) (20.0-40.0) % [place] % (Auto) (0.0-10.0) % Eos % (Auto) (0.0-4.0) % Baso % (Auto) (0.0-2.0) % Neut # (Auto) (1.8-7.0) K/uL Lymph # (Auto) (1.0-4.3) K/uL [place] # (Auto) (0.0-0.8) K/uL Eos # (Auto) (0.0-0.7) K/uL Baso # (Auto) (0.0-0.2) K/uL Neutrophils % (Manual) (50-75) % Band Neutrophils % (0-2) % Lymphocytes % (Manual) (20-40) % Monocytes % (Manual) (0-10) % Basophils % (Manual) (0-2) % Platelet Estimate (NORMAL) Large Platelets Hypochromasia (manual) Poikilocytosis (manual Anisocytosis (manual) Target Cells Ovalocytes Lilly Cells PT (9.7-12.2) SECONDS INR APTT 87 H D 96 H D (21-34) SECONDS Puncture Site Lb pCO2 42 (35-45) mm/Hg pO2 100 (80-100) mm/Hg HCO3 22.0 (21-28) mmol/L ABG pH 7.33 L (7.35-7.45) ABG Total CO2 23.4 (22-28) mmol/L ABG O2 Saturation 98.0 (95-98) % ABG Base Excess -3.7 L (-2.0-3.0) mmol/L ABG Hemoglobin (11.7-17.4) g/dL ABG Carboxyhemoglobin (0.5-1.5) % POC ABG HHb (Measured) (0.0-5.0) % ABG Methemoglobin (0.0-3.0) % Aníbal Test Na ABG Potassium 2.7 L (3.6-5.2) mmol/L A-a O2 Difference 133.0 mm/Hg Respiratory Index 1.3 Hgb O2 Saturation (95.0-98.0) % Glucose 115 H (75-110) mg/dl Lactate 0.7 (0.7-2.1) mmol/L Vent Mode Mechanical Rate FiO2 40.0 % Tidal Volume 500 PEEP 5 Sodium 145.0 (132-148) mmol/L Potassium (3.6-5.2) mmol/L Chloride 117.0 H (98-107) mmol/L Carbon Dioxide (22-30) mmol/L Anion Gap (10-20) BUN (9-20) mg/dL Creatinine (0.8-1.5) mg/dL Est GFR ( Amer) Est GFR (Non-Af Amer) Random Glucose (75-110) mg/dL Calcium (8.6-10.4) mg/dl Phosphorus (2.5-4.5) mg/dL Magnesium (1.6-2.3) mg/dL Total Bilirubin (0.2-1.3) mg/dL AST (17-59) U/L ALT (21-72) U/L Alkaline Phosphatase (38-126) U/L Total Protein (6.3-8.3) g/dL Albumin (3.5-5.0) g/dL Globulin (2.2-3.9) gm/dL Albumin/Globulin Ratio (1.0-2.1) Arterial Blood Potassium 2.7 L (3.6-5.2) mmol/L 01/14/18 01/14/18 01/14/18 Range/Units 05:51 05:51 05:15 WBC 22.3 H (4.8-10.8) K/uL RBC 4.23 L (4.40-5.90) Mil/uL Hgb 10.8 L (12.0-18.0) g/dL Hct 34.9 L (35.0-51.0) % MCV 82.6 (80.0-94.0) fL MCH 25.6 L (27.0-31.0) pg MCHC 31.0 L (33.0-37.0) g/dL RDW 17.2 H (11.5-14.5) % Plt Count 218 (130-400) K/uL MPV 7.2 (7.2-11.7) fL Neut % (Auto) 88.3 H (50.0-75.0) % Lymph % (Auto) 6.2 L (20.0-40.0) % [place] % (Auto) 5.1 (0.0-10.0) % Eos % (Auto) 0.3 (0.0-4.0) % Baso % (Auto) 0.1 (0.0-2.0) % Neut # (Auto) 19.6 H (1.8-7.0) K/uL Lymph # (Auto) 1.4 (1.0-4.3) K/uL [place] # (Auto) 1.1 H (0.0-0.8) K/uL Eos # (Auto) 0.1 (0.0-0.7) K/uL Baso # (Auto) 0.0 (0.0-0.2) K/uL Neutrophils % (Manual) 67 (50-75) % Band Neutrophils % 23 H* (0-2) % Lymphocytes % (Manual) 7 L (20-40) % Monocytes % (Manual) 2 (0-10) % Basophils % (Manual) 1 (0-2) % Platelet Estimate Normal (NORMAL) Large Platelets Present Hypochromasia (manual) Slight Poikilocytosis (manual Slight Anisocytosis (manual) Slight Target Cells Slight Ovalocytes Slight Lilly Cells Slight PT (9.7-12.2) SECONDS INR APTT (21-34) SECONDS Puncture Site Lb pCO2 50 H (35-45) mm/Hg pO2 131 H (80-100) mm/Hg HCO3 24.3 (21-28) mmol/L ABG pH 7.32 L (7.35-7.45) ABG Total CO2 27.3 (22-28) mmol/L ABG O2 Saturation 98.8 H (95-98) % ABG Base Excess -0.8 (-2.0-3.0) mmol/L ABG Hemoglobin 11.2 L (11.7-17.4) g/dL ABG Carboxyhemoglobin 1.2 (0.5-1.5) % POC ABG HHb (Measured) 1.2 (0.0-5.0) % ABG Methemoglobin 1.8 (0.0-3.0) % Aníbal Test Na ABG Potassium (3.6-5.2) mmol/L A-a O2 Difference 163.0 mm/Hg Respiratory Index 1.2 Hgb O2 Saturation 95.8 (95.0-98.0) % Glucose (75-110) mg/dl Lactate (0.7-2.1) mmol/L Vent Mode Prvc Mechanical Rate 14 FiO2 50.0 % Tidal Volume 500 PEEP 5 Sodium 142 (132-148) mmol/L Potassium 3.5 L (3.6-5.2) mmol/L Chloride 107 (98-107) mmol/L Carbon Dioxide 28 (22-30) mmol/L Anion Gap 11 (10-20) BUN 28 H (9-20) mg/dL Creatinine 1.2 (0.8-1.5) mg/dL Est GFR ( Amer) > 60 Est GFR (Non-Af Amer) 59 Random Glucose 134 H (75-110) mg/dL Calcium 7.6 L (8.6-10.4) mg/dl Phosphorus 2.9 (2.5-4.5) mg/dL Magnesium 2.0 (1.6-2.3) mg/dL Total Bilirubin 0.6 (0.2-1.3) mg/dL AST 40 (17-59) U/L ALT 28 (21-72) U/L Alkaline Phosphatase 112 (38-126) U/L Total Protein 6.2 L (6.3-8.3) g/dL Albumin 2.9 L (3.5-5.0) g/dL Globulin 3.3 (2.2-3.9) gm/dL Albumin/Globulin Ratio 0.9 L (1.0-2.1) Arterial Blood Potassium (3.6-5.2) mmol/L 01/13/18 01/13/18 01/13/18 Range/Units 22:05 20:17 15:13 WBC (4.8-10.8) K/uL RBC (4.40-5.90) Mil/uL Hgb (12.0-18.0) g/dL Hct (35.0-51.0) % MCV (80.0-94.0) fL MCH (27.0-31.0) pg MCHC (33.0-37.0) g/dL RDW (11.5-14.5) % Plt Count (130-400) K/uL MPV (7.2-11.7) fL Neut % (Auto) (50.0-75.0) % Lymph % (Auto) (20.0-40.0) % [place] % (Auto) (0.0-10.0) % Eos % (Auto) (0.0-4.0) % Baso % (Auto) (0.0-2.0) % Neut # (Auto) (1.8-7.0) K/uL Lymph # (Auto) (1.0-4.3) K/uL [place] # (Auto) (0.0-0.8) K/uL Eos # (Auto) (0.0-0.7) K/uL Baso # (Auto) (0.0-0.2) K/uL Neutrophils % (Manual) (50-75) % Band Neutrophils % (0-2) % Lymphocytes % (Manual) (20-40) % Monocytes % (Manual) (0-10) % Basophils % (Manual) (0-2) % Platelet Estimate (NORMAL) Large Platelets Hypochromasia (manual) Poikilocytosis (manual Anisocytosis (manual) Target Cells Ovalocytes Lilly Cells PT 15.7 H (9.7-12.2) SECONDS INR 1.4 APTT 137 H* D 33 (21-34) SECONDS Puncture Site pCO2 (35-45) mm/Hg pO2 (80-100) mm/Hg HCO3 (21-28) mmol/L ABG pH (7.35-7.45) ABG Total CO2 (22-28) mmol/L ABG O2 Saturation (95-98) % ABG Base Excess (-2.0-3.0) mmol/L ABG Hemoglobin (11.7-17.4) g/dL ABG Carboxyhemoglobin (0.5-1.5) % POC ABG HHb (Measured) (0.0-5.0) % ABG Methemoglobin (0.0-3.0) % Naíbal Test ABG Potassium (3.6-5.2) mmol/L A-a O2 Difference mm/Hg Respiratory Index Hgb O2 Saturation (95.0-98.0) % Glucose (75-110) mg/dl Lactate (0.7-2.1) mmol/L Vent Mode Mechanical Rate FiO2 % Tidal Volume PEEP Sodium 141 (132-148) mmol/L Potassium 4.2 (3.6-5.2) mmol/L Chloride 104 (98-107) mmol/L Carbon Dioxide 28 (22-30) mmol/L Anion Gap 13 (10-20) BUN 32 H (9-20) mg/dL Creatinine 1.3 (0.8-1.5) mg/dL Est GFR ( Amer) > 60 Est GFR (Non-Af Amer) 53 Random Glucose 126 H (75-110) mg/dL Calcium 7.5 L (8.6-10.4) mg/dl Phosphorus (2.5-4.5) mg/dL Magnesium (1.6-2.3) mg/dL Total Bilirubin (0.2-1.3) mg/dL AST (17-59) U/L ALT (21-72) U/L Alkaline Phosphatase (38-126) U/L Total Protein (6.3-8.3) g/dL Albumin (3.5-5.0) g/dL Globulin (2.2-3.9) gm/dL Albumin/Globulin Ratio (1.0-2.1) Arterial Blood Potassium (3.6-5.2) mmol/L Laboratory Results - last 24 hr 01/13/18 01/13/18 01/13/18 15:13 20:17 22:05 WBC RBC Hgb Hct MCV MCH MCHC RDW Plt Count MPV Neut % (Auto) Lymph % (Auto) [place] % (Auto) Eos % (Auto) Baso % (Auto) Neut # (Auto) Lymph # (Auto) [place] # (Auto) Eos # (Auto) Baso # (Auto) Neutrophils % (Manual) Band Neutrophils % Lymphocytes % (Manual) Monocytes % (Manual) Basophils % (Manual) Platelet Estimate Large Platelets Hypochromasia (manual) Poikilocytosis (manual Anisocytosis (manual) Target Cells Ovalocytes [place] Cells PT 15.7 H INR 1.4 APTT 33 137 H* D Puncture Site pCO2 pO2 HCO3 ABG pH ABG Total CO2 ABG O2 Saturation ABG Base Excess ABG Hemoglobin ABG Carboxyhemoglobin POC ABG HHb (Measured) ABG Methemoglobin Aníbal Test ABG Potassium A-a O2 Difference Respiratory Index Hgb O2 Saturation Glucose Lactate Vent Mode Mechanical Rate FiO2 Tidal Volume PEEP Sodium 141 Potassium 4.2 Chloride 104 Carbon Dioxide 28 Anion Gap 13 BUN 32 H Creatinine 1.3 Est GFR ( Amer) > 60 Est GFR (Non-Af Amer) 53 Random Glucose 126 H Calcium 7.5 L Phosphorus Magnesium Total Bilirubin AST ALT Alkaline Phosphatase Total Protein Albumin Globulin Albumin/Globulin Ratio Arterial Blood Potassium 01/14/18 01/14/18 01/14/18 05:15 05:51 05:51 WBC 22.3 H RBC 4.23 L Hgb 10.8 L Hct 34.9 L MCV 82.6 MCH 25.6 L MCHC 31.0 L RDW 17.2 H Plt Count 218 MPV 7.2 Neut % (Auto) 88.3 H Lymph % (Auto) 6.2 L [place] % (Auto) 5.1 Eos % (Auto) 0.3 Baso % (Auto) 0.1 Neut # (Auto) 19.6 H Lymph # (Auto) 1.4 [place] # (Auto) 1.1 H Eos # (Auto) 0.1 Baso # (Auto) 0.0 Neutrophils % (Manual) 67 Band Neutrophils % 23 H* Lymphocytes % (Manual) 7 L Monocytes % (Manual) 2 Basophils % (Manual) 1 Platelet Estimate Normal Large Platelets Present Hypochromasia (manual) Slight Poikilocytosis (manual Slight Anisocytosis (manual) Slight Target Cells Slight Ovalocytes Slight Lilly Cells Slight PT INR APTT Puncture Site Lb pCO2 50 H pO2 131 H HCO3 24.3 ABG pH 7.32 L ABG Total CO2 27.3 ABG O2 Saturation 98.8 H ABG Base Excess -0.8 ABG Hemoglobin 11.2 L ABG Carboxyhemoglobin 1.2 POC ABG HHb (Measured) 1.2 ABG Methemoglobin 1.8 Aníbal Test Na ABG Potassium A-a O2 Difference 163.0 Respiratory Index 1.2 Hgb O2 Saturation 95.8 Glucose Lactate Vent Mode Prvc Mechanical Rate 14 FiO2 50.0 Tidal Volume 500 PEEP 5 Sodium 142 Potassium 3.5 L Chloride 107 Carbon Dioxide 28 Anion Gap 11 BUN 28 H Creatinine 1.2 Est GFR ( Amer) > 60 Est GFR (Non-Af Amer) 59 Random Glucose 134 H Calcium 7.6 L Phosphorus 2.9 Magnesium 2.0 Total Bilirubin 0.6 AST 40 ALT 28 Alkaline Phosphatase 112 Total Protein 6.2 L Albumin 2.9 L Globulin 3.3 Albumin/Globulin Ratio 0.9 L Arterial Blood Potassium 01/14/18 01/14/18 01/14/18 05:51 12:35 14:33 WBC RBC Hgb Hct MCV MCH MCHC RDW Plt Count MPV Neut % (Auto) Lymph % (Auto) [place] % (Auto) Eos % (Auto) Baso % (Auto) Neut # (Auto) Lymph # (Auto) [place] # (Auto) Eos # (Auto) Baso # (Auto) Neutrophils % (Manual) Band Neutrophils % Lymphocytes % (Manual) Monocytes % (Manual) Basophils % (Manual) Platelet Estimate Large Platelets Hypochromasia (manual) Poikilocytosis (manual Anisocytosis (manual) Target Cells Ovalocytes Lilly Cells PT INR APTT 96 H D 87 H D Puncture Site Lb pCO2 42 pO2 100 HCO3 22.0 ABG pH 7.33 L ABG Total CO2 23.4 ABG O2 Saturation 98.0 ABG Base Excess -3.7 L ABG Hemoglobin ABG Carboxyhemoglobin POC ABG HHb (Measured) ABG Methemoglobin Aníbal Test Na ABG Potassium 2.7 L A-a O2 Difference 133.0 Respiratory Index 1.3 Hgb O2 Saturation Glucose 115 H Lactate 0.7 Vent Mode Mechanical Rate FiO2 40.0 Tidal Volume 500 PEEP 5 Sodium 145.0 Potassium Chloride 117.0 H Carbon Dioxide Anion Gap BUN Creatinine Est GFR ( Amer) Est GFR (Non-Af Amer) Random Glucose Calcium Phosphorus Magnesium Total Bilirubin AST ALT Alkaline Phosphatase Total Protein Albumin Globulin Albumin/Globulin Ratio Arterial Blood Potassium 2.7 L EKG/Cardiology Studies: Cardiology / EKG Studies 01/14/18 14:35 EKG [ELECTROCARDIOGRAM] Stat Comment: Mode Of Transportation: Reason For Exam: QTc Fingerstick Blood Sugar Results: 168 Review of Systems - Review of Systems Systems not reviewed;Unavailable: Altered Mental Status Assessment/Plan - Assessment and Plan (Free Text) Assessment: year old male with history of diastolic CHF, COPD, diverticulitis, HTN, peripheral edema, pneumonia who presented from assisted for altered mental status. Patient was found to be hypotensive with leukocytosis. On arrival to ICU , patient was noted to be very agitated and in respiratory distress and was intubated. Patient intermittently goes into SVT with rate into 180s, required cardioversion yesterday. Has been on Amiodarone drip, not gone into SVT. Plan: Neuro: Altered mental status CT head Mild age related neuro degenerative changes are appreciated which appear age appropriate. No definite acute intracranial findings by standard CT criteria. Follow-up CT or MRI are available if clinically warranted. Sedated with Propofol Cardiovascular Not tachycardic today, remained in SR in 70s Currently on Levophed Started on Amiodarone drip. As per Cardio, may switch to Amiodarone PO Hx of diastolic CHF proBNP 1370 Troponin 0.0340 NS IV fluids @ 70cc/hr ECHO: RV moderately dilated. Moderate TR. f/u CT angio Right femoral TLC removed PICC line placed today, with CXR revealed good placement and no indication of pneumothorax. Pulmonary VBG pH 7.37/pCO2 62/pO2 51/ HCO 31 CXR No interval pathology noted. Patient found to be in respiratory distress and intubated on arrival Sedated on Propofol F/u bilateral lower extremity venous doppler D-dimer 3655 ABG pH 7.49 pCO2 32 pO2 146 HCO3 26 Atrovent Q6 F/u CT angio to rule out PE started on Heparin drip GI Pepcid 20mg IV Started on NG tube feeds Renal BUN 28 Cr 1.2 NS IV fluids @ 70cc/hr I&Os Endo Maintain euglycemia ID White count 22.3 with bands 23 Not febrile currently Lactate from vBG 1.7 Aztreonam, Meropenem UA 3+ LE, 2+ protein 2+ blood moderate bacteria WBC 1186 Blood culture prelim positive for GN rods urine culture, MRSA screen sent. Repeat blood and urine culture sent. Vancomycin 1g IV x1 given Heme/Onc H/H stable PPX: Pepcid, Heparin drip Social: Spoke to patient's son Leonid Malone who stated that he would like to have patient's code status changed to DNR given patient's poor quality of life. Case discussed with Dr. Moore. <Aldo Moore - Last Filed: 01/14/18 16:59> CCU Objective - Vital Signs / Intake & Output Vital Signs (Last 4 hours): Vital Signs Temp Pulse Resp BP Pulse Ox 01/14/18 16:10 75 21 136/76 97 01/14/18 16:09 77 20 132/70 97 01/14/18 16:02 76 20 81/48 L 94 L 01/14/18 16:01 76 17 73/44 L 95 01/14/18 16:00 98.6 F 78 16 96 01/14/18 15:41 72 17 88/53 L 96 01/14/18 15:33 71 16 88/52 L 96 01/14/18 15:30 69 18 96 01/14/18 15:09 73 18 87/51 L 96 01/14/18 15:07 71 18 96 01/14/18 15:00 72 18 97 01/14/18 14:33 73 18 112/61 97 01/14/18 14:30 75 19 96 01/14/18 14:18 75 16 102/69 96 01/14/18 14:00 82 16 95 01/14/18 13:30 73 22 01/14/18 13:00 84 19 96 Intake and Output (Last 8hrs): Intake & Output 01/14/18 01/14/18 01/14/18 06:59 14:59 22:59 Intake Total 2146.526 1734.734 365.2 Output Total 470 770 115 Balance 1676.526 964.734 250.2 Weight 202 lb 11.2 oz Intake: IV 799.996 259.884 3 Intake, IV Amount 1231.53 1149.85 292.2 LFA #18 116.10 87.75 23.4 Left Forearm 16.6 Left Hand 11.7 Left Wrist 133.6 133.6 33.4 Right Distal Port Femoral 157.8 171.4 49.7 Right Medial Port Femoral 204.03 48.8 15.7 Right Proximal Port 620.0 680 170 Femoral Tube Feeding 65 245 70 Other 50 80 Output: Urine 470 770 115 Urethral (Olivares) 470 770 115 Other: # Bowel Movements 0 0 0 - Medications Active Medications: Active Medications Generic Name Dose Route Start Last Admin Trade Name Freq PRN Reason Stop Dose Admin Amiodarone HCl 200 mg 01/14/18 18:00 Cordarone PO BID JOJO Famotidine 20 mg 01/13/18 10:00 01/14/18 09:20 Pepcid IVP 20 mg DAILY JOJO Administration Heparin Sodium (Porcine) 5,000 units 01/12/18 22:00 01/13/18 14:42 Heparin SC Not Given Q8 JOJO Norepinephrine Bitartrate 4 mg 254 mls @ 15.24 mls/hr 01/12/18 15:34 16:11 / Sodium Chloride IV 3 mcg/min .[id number] PRN 11.43 mls/hr TITRATE PER MD ORDER Titration Protocol 4 MCG/MIN Propofol 1,000 mg in 100 mls @ 2.776 mls/hr 01/12/18 19:21 01/14/18 14:58 Diprivan IV 40 mcg/kg/min .Q24H PRN 22.208 mls/hr Agitation Administration Protocol 5 MCG/KG/MIN Sodium Chloride 1,000 mls @ 70 mls/hr 01/13/18 10:15 01/14/18 13:58 Sodium Chloride 0.9% IV 70 mls/hr .[id number] JOJO Administration Meropenem 1 gm/ Sodium 100 mls @ 100 mls/hr 01/13/18 16:00 01/14/18 15:01 Chloride IVPB 100 mls/hr Q12H JOJO Administration Protocol Heparin Sodium/Sodium Chloride 25,000 units in 250 mls @ 16.248 mls/hr 16:00 01/14/18 06:30 Heparin 73574 Units/250ml 1/2 Normal Saline IV 13 units/kg/hr .[id number] PRN 11.734 mls/hr PROTOCOL Administration Protocol 18 UNITS/KG/HR Aztreonam 1 gm/ Sodium 100 mls @ 200 mls/hr 01/13/18 17:00 01/14/18 16:09 Chloride IVPB 200 mls/hr Q8H JOJO Administration Protocol Ipratropium Amanda 0.5 mg 01/12/18 19:03 Atrovent IH RQ6 PRN Shortness of Breath Metoprolol Tartrate 2.5 mg 01/13/18 12:00 01/14/18 12:04 Lopressor IVP 2.5 mg Q6 JOJO Administration - Patient Studies Lab Studies: Microbiology Studies 01/13/18 15:13 Gram Stain - Final Trachasp 01/12/18 19:07 MRSA Culture (Admit) - Final Nose MRSA NOT DETECTED 01/12/18 13:36 Urine Culture - Final Urine,Catheterized MULTIPLE SPECIES. SUGGEST REPEAT SPECIMEN. 01/13/18 05:55 Gram Stain - Preliminary Sputum Lab Studies 01/14/18 01/14/18 01/14/18 Range/Units 14:33 12:35 05:51 WBC (4.8-10.8) K/uL RBC (4.40-5.90) Mil/uL Hgb (12.0-18.0) g/dL Hct (35.0-51.0) % MCV (80.0-94.0) fL MCH (27.0-31.0) pg MCHC (33.0-37.0) g/dL RDW (11.5-14.5) % Plt Count (130-400) K/uL MPV (7.2-11.7) fL Neut % (Auto) (50.0-75.0) % Lymph % (Auto) (20.0-40.0) % [place] % (Auto) (0.0-10.0) % Eos % (Auto) (0.0-4.0) % Baso % (Auto) (0.0-2.0) % Neut # (Auto) (1.8-7.0) K/uL Lymph # (Auto) (1.0-4.3) K/uL [place] # (Auto) (0.0-0.8) K/uL Eos # (Auto) (0.0-0.7) K/uL Baso # (Auto) (0.0-0.2) K/uL Neutrophils % (Manual) (50-75) % Band Neutrophils % (0-2) % Lymphocytes % (Manual) (20-40) % Monocytes % (Manual) (0-10) % Basophils % (Manual) (0-2) % Platelet Estimate (NORMAL) Large Platelets Hypochromasia (manual) Poikilocytosis (manual Anisocytosis (manual) Target Cells Ovalocytes Lilly Cells APTT 87 H D 96 H D (21-34) SECONDS Puncture Site Lb pCO2 42 (35-45) mm/Hg pO2 100 (80-100) mm/Hg HCO3 22.0 (21-28) mmol/L ABG pH 7.33 L (7.35-7.45) ABG Total CO2 23.4 (22-28) mmol/L ABG O2 Saturation 98.0 (95-98) % ABG Base Excess -3.7 L (-2.0-3.0) mmol/L ABG Hemoglobin (11.7-17.4) g/dL ABG Carboxyhemoglobin (0.5-1.5) % POC ABG HHb (Measured) (0.0-5.0) % ABG Methemoglobin (0.0-3.0) % Aníbal Test Na ABG Potassium 2.7 L (3.6-5.2) mmol/L A-a O2 Difference 133.0 mm/Hg Respiratory Index 1.3 Hgb O2 Saturation (95.0-98.0) % Glucose 115 H (75-110) mg/dl Lactate 0.7 (0.7-2.1) mmol/L Vent Mode Mechanical Rate FiO2 40.0 % Tidal Volume 500 PEEP 5 Sodium 145.0 (132-148) mmol/L Potassium (3.6-5.2) mmol/L Chloride 117.0 H (98-107) mmol/L Carbon Dioxide (22-30) mmol/L Anion Gap (10-20) BUN (9-20) mg/dL Creatinine (0.8-1.5) mg/dL Est GFR ( Amer) Est GFR (Non-Af Amer) Random Glucose (75-110) mg/dL Calcium (8.6-10.4) mg/dl Phosphorus (2.5-4.5) mg/dL Magnesium (1.6-2.3) mg/dL Total Bilirubin (0.2-1.3) mg/dL AST (17-59) U/L ALT (21-72) U/L Alkaline Phosphatase (38-126) U/L Total Protein (6.3-8.3) g/dL Albumin (3.5-5.0) g/dL Globulin (2.2-3.9) gm/dL Albumin/Globulin Ratio (1.0-2.1) Arterial Blood Potassium 2.7 L (3.6-5.2) mmol/L 01/14/18 01/14/18 01/14/18 Range/Units 05:51 05:51 05:15 WBC 22.3 H (4.8-10.8) K/uL RBC 4.23 L (4.40-5.90) Mil/uL Hgb 10.8 L (12.0-18.0) g/dL Hct 34.9 L (35.0-51.0) % MCV 82.6 (80.0-94.0) fL MCH 25.6 L (27.0-31.0) pg MCHC 31.0 L (33.0-37.0) g/dL RDW 17.2 H (11.5-14.5) % Plt Count 218 (130-400) K/uL MPV 7.2 (7.2-11.7) fL Neut % (Auto) 88.3 H (50.0-75.0) % Lymph % (Auto) 6.2 L (20.0-40.0) % [place] % (Auto) 5.1 (0.0-10.0) % Eos % (Auto) 0.3 (0.0-4.0) % Baso % (Auto) 0.1 (0.0-2.0) % Neut # (Auto) 19.6 H (1.8-7.0) K/uL Lymph # (Auto) 1.4 (1.0-4.3) K/uL [place] # (Auto) 1.1 H (0.0-0.8) K/uL Eos # (Auto) 0.1 (0.0-0.7) K/uL Baso # (Auto) 0.0 (0.0-0.2) K/uL Neutrophils % (Manual) 67 (50-75) % Band Neutrophils % 23 H* (0-2) % Lymphocytes % (Manual) 7 L (20-40) % Monocytes % (Manual) 2 (0-10) % Basophils % (Manual) 1 (0-2) % Platelet Estimate Normal (NORMAL) Large Platelets Present Hypochromasia (manual) Slight Poikilocytosis (manual Slight Anisocytosis (manual) Slight Target Cells Slight Ovalocytes Slight Lilly Cells Slight APTT (21-34) SECONDS Puncture Site Lb pCO2 50 H (35-45) mm/Hg pO2 131 H (80-100) mm/Hg HCO3 24.3 (21-28) mmol/L ABG pH 7.32 L (7.35-7.45) ABG Total CO2 27.3 (22-28) mmol/L ABG O2 Saturation 98.8 H (95-98) % ABG Base Excess -0.8 (-2.0-3.0) mmol/L ABG Hemoglobin 11.2 L (11.7-17.4) g/dL ABG Carboxyhemoglobin 1.2 (0.5-1.5) % POC ABG HHb (Measured) 1.2 (0.0-5.0) % ABG Methemoglobin 1.8 (0.0-3.0) % Aníbal Test Na ABG Potassium (3.6-5.2) mmol/L A-a O2 Difference 163.0 mm/Hg Respiratory Index 1.2 Hgb O2 Saturation 95.8 (95.0-98.0) % Glucose (75-110) mg/dl Lactate (0.7-2.1) mmol/L Vent Mode Prvc Mechanical Rate 14 FiO2 50.0 % Tidal Volume 500 PEEP 5 Sodium 142 (132-148) mmol/L Potassium 3.5 L (3.6-5.2) mmol/L Chloride 107 (98-107) mmol/L Carbon Dioxide 28 (22-30) mmol/L Anion Gap 11 (10-20) BUN 28 H (9-20) mg/dL Creatinine 1.2 (0.8-1.5) mg/dL Est GFR ( Amer) > 60 Est GFR (Non-Af Amer) 59 Random Glucose 134 H (75-110) mg/dL Calcium 7.6 L (8.6-10.4) mg/dl Phosphorus 2.9 (2.5-4.5) mg/dL Magnesium 2.0 (1.6-2.3) mg/dL Total Bilirubin 0.6 (0.2-1.3) mg/dL AST 40 (17-59) U/L ALT 28 (21-72) U/L Alkaline Phosphatase 112 (38-126) U/L Total Protein 6.2 L (6.3-8.3) g/dL Albumin 2.9 L (3.5-5.0) g/dL Globulin 3.3 (2.2-3.9) gm/dL Albumin/Globulin Ratio 0.9 L (1.0-2.1) Arterial Blood Potassium (3.6-5.2) mmol/L 01/13/18 01/13/18 Range/Units 22:05 20:17 WBC (4.8-10.8) K/uL RBC (4.40-5.90) Mil/uL Hgb (12.0-18.0) g/dL Hct (35.0-51.0) % MCV (80.0-94.0) fL MCH (27.0-31.0) pg MCHC (33.0-37.0) g/dL RDW (11.5-14.5) % Plt Count (130-400) K/uL MPV (7.2-11.7) fL Neut % (Auto) (50.0-75.0) % Lymph % (Auto) (20.0-40.0) % [place] % (Auto) (0.0-10.0) % Eos % (Auto) (0.0-4.0) % Baso % (Auto) (0.0-2.0) % Neut # (Auto) (1.8-7.0) K/uL Lymph # (Auto) (1.0-4.3) K/uL [place] # (Auto) (0.0-0.8) K/uL Eos # (Auto) (0.0-0.7) K/uL Baso # (Auto) (0.0-0.2) K/uL Neutrophils % (Manual) (50-75) % Band Neutrophils % (0-2) % Lymphocytes % (Manual) (20-40) % Monocytes % (Manual) (0-10) % Basophils % (Manual) (0-2) % Platelet Estimate (NORMAL) Large Platelets Hypochromasia (manual) Poikilocytosis (manual Anisocytosis (manual) Target Cells Ovalocytes [place] Cells APTT 137 H* D (21-34) SECONDS Puncture Site pCO2 (35-45) mm/Hg pO2 (80-100) mm/Hg HCO3 (21-28) mmol/L ABG pH (7.35-7.45) ABG Total CO2 (22-28) mmol/L ABG O2 Saturation (95-98) % ABG Base Excess (-2.0-3.0) mmol/L ABG Hemoglobin (11.7-17.4) g/dL ABG Carboxyhemoglobin (0.5-1.5) % POC ABG HHb (Measured) (0.0-5.0) % ABG Methemoglobin (0.0-3.0) % Aníbal Test ABG Potassium (3.6-5.2) mmol/L A-a O2 Difference mm/Hg Respiratory Index Hgb O2 Saturation (95.0-98.0) % Glucose (75-110) mg/dl Lactate (0.7-2.1) mmol/L Vent Mode Mechanical Rate FiO2 % Tidal Volume PEEP Sodium 141 (132-148) mmol/L Potassium 4.2 (3.6-5.2) mmol/L Chloride 104 (98-107) mmol/L Carbon Dioxide 28 (22-30) mmol/L Anion Gap 13 (10-20) BUN 32 H (9-20) mg/dL Creatinine 1.3 (0.8-1.5) mg/dL Est GFR ( Amer) > 60 Est GFR (Non-Af Amer) 53 Random Glucose 126 H (75-110) mg/dL Calcium 7.5 L (8.6-10.4) mg/dl Phosphorus (2.5-4.5) mg/dL Magnesium (1.6-2.3) mg/dL Total Bilirubin (0.2-1.3) mg/dL AST (17-59) U/L ALT (21-72) U/L Alkaline Phosphatase (38-126) U/L Total Protein (6.3-8.3) g/dL Albumin (3.5-5.0) g/dL Globulin (2.2-3.9) gm/dL Albumin/Globulin Ratio (1.0-2.1) Arterial Blood Potassium (3.6-5.2) mmol/L Laboratory Results - last 24 hr 01/13/18 01/13/18 01/14/18 20:17 22:05 05:15 WBC RBC Hgb Hct MCV MCH MCHC RDW Plt Count MPV Neut % (Auto) Lymph % (Auto) [place] % (Auto) Eos % (Auto) Baso % (Auto) Neut # (Auto) Lymph # (Auto) [place] # (Auto) Eos # (Auto) Baso # (Auto) Neutrophils % (Manual) Band Neutrophils % Lymphocytes % (Manual) Monocytes % (Manual) Basophils % (Manual) Platelet Estimate Large Platelets Hypochromasia (manual) Poikilocytosis (manual Anisocytosis (manual) Target Cells Ovalocytes [place] Cells APTT 137 H* D Puncture Site Lb pCO2 50 H pO2 131 H HCO3 24.3 ABG pH 7.32 L ABG Total CO2 27.3 ABG O2 Saturation 98.8 H ABG Base Excess -0.8 ABG Hemoglobin 11.2 L ABG Carboxyhemoglobin 1.2 POC ABG HHb (Measured) 1.2 ABG Methemoglobin 1.8 Aníbal Test Na ABG Potassium A-a O2 Difference 163.0 Respiratory Index 1.2 Hgb O2 Saturation 95.8 Glucose Lactate Vent Mode Prvc Mechanical Rate 14 FiO2 50.0 Tidal Volume 500 PEEP 5 Sodium 141 Potassium 4.2 Chloride 104 Carbon Dioxide 28 Anion Gap 13 BUN 32 H Creatinine 1.3 Est GFR ( Amer) > 60 Est GFR (Non-Af Amer) 53 Random Glucose 126 H Calcium 7.5 L Phosphorus Magnesium Total Bilirubin AST ALT Alkaline Phosphatase Total Protein Albumin Globulin Albumin/Globulin Ratio Arterial Blood Potassium 01/14/18 01/14/18 01/14/18 05:51 05:51 05:51 WBC 22.3 H RBC 4.23 L Hgb 10.8 L Hct 34.9 L MCV 82.6 MCH 25.6 L MCHC 31.0 L RDW 17.2 H Plt Count 218 MPV 7.2 Neut % (Auto) 88.3 H Lymph % (Auto) 6.2 L [place] % (Auto) 5.1 Eos % (Auto) 0.3 Baso % (Auto) 0.1 Neut # (Auto) 19.6 H Lymph # (Auto) 1.4 [place] # (Auto) 1.1 H Eos # (Auto) 0.1 Baso # (Auto) 0.0 Neutrophils % (Manual) 67 Band Neutrophils % 23 H* Lymphocytes % (Manual) 7 L Monocytes % (Manual) 2 Basophils % (Manual) 1 Platelet Estimate Normal Large Platelets Present Hypochromasia (manual) Slight Poikilocytosis (manual Slight Anisocytosis (manual) Slight Target Cells Slight Ovalocytes Slight [place] Cells Slight APTT 96 H D Puncture Site pCO2 pO2 HCO3 ABG pH ABG Total CO2 ABG O2 Saturation ABG Base Excess ABG Hemoglobin ABG Carboxyhemoglobin POC ABG HHb (Measured) ABG Methemoglobin Aníbal Test ABG Potassium A-a O2 Difference Respiratory Index Hgb O2 Saturation Glucose Lactate Vent Mode Mechanical Rate FiO2 Tidal Volume PEEP Sodium 142 Potassium 3.5 L Chloride 107 Carbon Dioxide 28 Anion Gap 11 BUN 28 H Creatinine 1.2 Est GFR ( Amer) > 60 Est GFR (Non-Af Amer) 59 Random Glucose 134 H Calcium 7.6 L Phosphorus 2.9 Magnesium 2.0 Total Bilirubin 0.6 AST 40 ALT 28 Alkaline Phosphatase 112 Total Protein 6.2 L Albumin 2.9 L Globulin 3.3 Albumin/Globulin Ratio 0.9 L Arterial Blood Potassium 01/14/18 01/14/18 12:35 14:33 WBC RBC Hgb Hct MCV MCH MCHC RDW Plt Count MPV Neut % (Auto) Lymph % (Auto) [place] % (Auto) Eos % (Auto) Baso % (Auto) Neut # (Auto) Lymph # (Auto) [place] # (Auto) Eos # (Auto) Baso # (Auto) Neutrophils % (Manual) Band Neutrophils % Lymphocytes % (Manual) Monocytes % (Manual) Basophils % (Manual) Platelet Estimate Large Platelets Hypochromasia (manual) Poikilocytosis (manual Anisocytosis (manual) Target Cells Ovalocytes [place] Cells APTT 87 H D Puncture Site Lb pCO2 42 pO2 100 HCO3 22.0 ABG pH 7.33 L ABG Total CO2 23.4 ABG O2 Saturation 98.0 ABG Base Excess -3.7 L ABG Hemoglobin ABG Carboxyhemoglobin POC ABG HHb (Measured) ABG Methemoglobin Aníbal Test Na ABG Potassium 2.7 L A-a O2 Difference 133.0 Respiratory Index 1.3 Hgb O2 Saturation Glucose 115 H Lactate 0.7 Vent Mode Mechanical Rate FiO2 40.0 Tidal Volume 500 PEEP 5 Sodium 145.0 Potassium Chloride 117.0 H Carbon Dioxide Anion Gap BUN Creatinine Est GFR ( Amer) Est GFR (Non-Af Amer) Random Glucose Calcium Phosphorus Magnesium Total Bilirubin AST ALT Alkaline Phosphatase Total Protein Albumin Globulin Albumin/Globulin Ratio Arterial Blood Potassium 2.7 L EKG/Cardiology Studies: Cardiology / EKG Studies 01/14/18 14:35 EKG [ELECTROCARDIOGRAM] Stat Comment: Mode Of Transportation: Reason For Exam: QTc Attending/Attestation - Attestation I have personally seen and examined this patient.: Yes I have fully participated in the care of the patient.: Yes I have reviewed all pertinent clinical information: Yes Notes (Text): 01/14/18 16:59 Today: January The Patient was seen and examined at the bedside, Medical records reviewed, and management issues were discussed and formulated with the house staff. I have reviewed all the relevant clinical, laboratory, hemodynamic, radiographic data and medications Events reviewed Pain issues, skin care, head of the bed elevation, glycemic control were addressed. Agree with above resident's assessment and treatment plans of care as transcribed in Dr. Corona's note.
--- NOTE | 2018-01-14 15:01 | RAD ---
Date of service: 01/14/2018 HISTORY: PICC line COMPARISON: 01/14/2018 FINDINGS: LUNGS: The previously referenced vague low-density opacity right lung base is increasing contiguity - an infiltrate here is believe most likely. Increase blunting and trace increase opacity left costophrenic angle- the interval slight increase in the prior (previously diminishing) small left pleural effusion) is compatible with this. Trace concomitant discoid atelectasis here also suggested. PLEURA: Small left pleural effusion slightly increased No pneumothorax apparent. CARDIOVASCULAR: Cardiomegaly-similar multiple cardiac devices projecting over the thorax. Pulmonary venous congestion appears slightly less than before. Right subclavian interval PICC line tip in superior vena cava. OSSEOUS STRUCTURES: No significant abnormalities. VISUALIZED UPPER ABDOMEN: Normal. OTHER FINDINGS: Endotracheal tube tip 3 cm from the ze. NG tube in stomach IMPRESSION: Interval insertion right PICC line as above. No pneumothorax. Other findings as above.
--- NOTE | 2018-01-14 15:43 | CP.PCM.PN ---
Subjective - Date & Time of Evaluation Date of Evaluation: 01/14/18 Time of Evaluation: 12:30 Objective - Vital Signs/Intake and Output Vital Signs (last 24 hours): Temp Pulse Resp BP Pulse Ox 97.7 F 73 18 87/51 L 96 01/14/18 12:00 01/14/18 15:09 01/14/18 15:09 01/14/18 15:09 01/14/18 15:09 Intake and Output: 01/14/18 01/14/18 06:59 18:59 Intake Total 2870.796 1899.534 Output Total 700 845 Balance 2170.796 1054.534 - Medications Medications: Current Medications Famotidine (Pepcid) 20 mg IVP DAILY [facility] Last Admin: 01/14/18 09:20 Dose: 20 mg Heparin Sodium (Porcine) (Heparin) 5,000 units SC Q8 [facility] Last Admin: 01/13/18 14:42 Dose: Not Given Norepinephrine Bitartrate 4 mg (/ Sodium Chloride) 254 mls @ 15.24 mls/hr IV .[id number] PRN; Protocol; 4 MCG/MIN PRN Reason: TITRATE PER MD ORDER Last Titration: 01/14/18 14:49 Dose: 1 mcg/min, 3.81 mls/hr Propofol (Diprivan) 1,000 mg in 100 mls @ 2.776 mls/hr IV .Q24H PRN; Protocol; 5 MCG/KG/MIN PRN Reason: Agitation Last Admin: 01/14/18 14:58 Dose: 40 mcg/kg/min, 22.208 mls/hr Sodium Chloride (Sodium Chloride 0.9%) 1,000 mls @ 70 mls/hr IV .[id number] [facility] Last Admin: 01/14/18 13:58 Dose: 70 mls/hr Meropenem 1 gm/ Sodium (Chloride) 100 mls @ 100 mls/hr IVPB Q12H [facility] PRN Reason: Protocol Last Admin: 01/14/18 15:01 Dose: 100 mls/hr Heparin Sodium/Sodium Chloride (Heparin 66299 Units/250ml 1/2 Normal Saline) 25 ,000 units in 250 mls @ 16.248 mls/hr IV .[id number] PRN; Protocol; 18 UNITS/KG/HR PRN Reason: PROTOCOL Last Admin: 01/14/18 06:30 Dose: 13 units/kg/hr, 11.734 mls/hr Amiodarone HCl 900 mg/ (Dextrose) 500 mls @ 16.66 mls/hr IV .Q24H ONE; 0.5 MG/ MIN PRN Reason: Protocol Stop: 01/14/18 21:29 Last Admin: 01/13/18 22:20 Dose: 16.66 mls/hr Aztreonam 1 gm/ Sodium (Chloride) 100 mls @ 200 mls/hr IVPB Q8H [facility] PRN Reason: Protocol Last Admin: 01/14/18 08:37 Dose: 200 mls/hr Ipratropium [place] (Atrovent) 0.5 mg IH RQ6 PRN PRN Reason: Shortness of Breath Metoprolol Tartrate (Lopressor) 2.5 mg IVP Q6 [facility] Last Admin: 01/14/18 12:04 Dose: 2.5 mg - Labs Labs: 01/14/18 05:51 01/14/18 05:51 PT 15.7 SECONDS (9.7-12.2) H 01/13/18 15:13 INR 1.4 01/13/18 15:13 APTT 87 SECONDS (21-34) H D 01/14/18 12:35 Assessment and Plan (1) Atrial fibrillation Status: Acute (2) Fever Status: Acute (3) Mental status alteration Status: Acute (4) UTI (urinary tract infection) Status: Acute (5) BPH (benign prostatic hyperplasia) Status: Acute (6) COPD (chronic obstructive pulmonary disease) Status: Acute (7) Congestive heart failure (CHF) Status: Acute (8) GERD (gastroesophageal reflux disease) Status: Acute (9) Hematuria Status: Acute (10) Hypertension Status: Acute (11) Pneumonia Status: Acute (12) Urinary retention Status: Acute
--- NOTE | 2018-01-14 16:41 | CON ---
DATE: 01/13/2018 REQUESTED BY: Faustino Holt MD REQUESTED FOR: Positive cultures. The patient has gram-negative bacteremia. HISTORY OF PRESENT ILLNESS: He is a 77-year-old male. He was admitted to the ICU last night with altered mental status, congestive heart failure, COPD, diverticulitis, hypertension, has peripheral edema and pneumonia. He was sent from the group home with altered mental status. He is intubated at the present time. He is on vasopressors and he has a Olivares catheter. He had urinary retention and has Olivares catheter, and he has blood cultures, which are positive for gram-negative and the urine shows pyuria and UTI. We are not able to get any history from him. He remains intubated. Most of the history is taken from the chart. ALLERGIES: HE IS NOT ALLERGIC TO ANY MEDICINE. SURGICAL HISTORY: None. PAST MEDICAL HISTORY: Significant for CHF, COPD, hypertension, history of pneumonia and diverticulitis in the past. His past medical history is significant for smoking. He was a former smoker. Cardiac dahl, he has a history of diastolic CHF, hypertension and peripheral edema. Pulmonary, he has COPD. He has had bronchopneumonia on 11/04/2015. Neurologically, he has cervical stenosis and neuropathy and neurological findings because of that and he is intubated at this time. HEENT dahl. Renal, he has no chronic kidney issues. Endocrine dahl, no diabetes. No hematological issues. Dermatologically, he had a left lower leg extremity cellulitis present. Musculoskeletal, he has back tissues and osteoarthritis. 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 GI, he has diverticulitis. , he has bladder stone, hematuria and UTIs. Psych, he has no substance abuse. PAST SURGICAL HISTORY: He has had cystoscopy before and history of anesthesia. MEDICATIONS: At the present time, we are giving him, he is on amiodarone as he went into V-fib and he is on amiodarone at this time. He is on Azactam, I am giving him 1 g every eight hours, famotidine, heparin subcu and he is also on heparin IV as he went into V-fib and they are ruling out GA and he has meropenem we are giving 1 g every 12 hours at this time as he has some renal issues, metaproterenol was not given, norepinephrine, and he is on propofol, Diprivan and IV fluids. The patient did had some cardiac arrhythmias and the corporate specialist have been working on that now. REVIEW OF SYSTEMS: Unable to obtain, but was admitted with altered mental status. He is intubated. He is having these cardiac issues and is on amiodarone drip with respiratory issues. Head is atraumatic, normocephalic. He is sedated, atraumatic. Eyes movements are unable to evaluate. Eyes are closed. Mouth, mucous membrane are dry. Neck is supple. JVP is flat. Lungs, there are decreased breath sounds bilaterally. No rales, rhonchi or wheezing heard. Heart, S1 and S2 is tachycardic. It appeared as VT and it maybe V-tach, we are not sure and they gave amiodarone now, it maybe V-tach. Abdomen is soft, nontender. No guarding, no rigidity present and has suprapubic tenderness. They put a Olivares in, which has sediments. Left leg has bilateral edema present and left leg has cellulitis and some edema noted. He has foot protectors on. He was agitated when he was brought in and his skin was warm to touch. LABORATORY DATA: His labs show white count is 20.6 yesterday, now it is 19.4, hemoglobin 10.3, hematocrit 32.5, platelet count is 196, remains low and he has 11 bands. ABG was done, which shows lactate level was 3.2 today and last night it was 3.2. We need to do lactate level again. LFTs are unremarkable. BUN is 38, creatinine was 2 before, now it is 1.4, I think with the Olivares catheter, maybe some retention is released. Urine showed 2+ blood, 3+ leukocytes, wbc rbc is 80 and bacteria is moderate, so the creatinine now is 1.4, so we can go up on meropenem, but we will leave him on Azactam and Merrem at this time. The blood culture had gram-negative rods. Urine culture has multiple species. Sputum is pending at this time and the chest x-ray shows small pleural effusion. There is question with left basilar airspace disease, difficult to exclude. Exam otherwise stable and small pleural effusion is in question with left basilar airspace disease. ASSESSMENT AND PLAN: At this time, I am covering him for gram-negative septicemia. He is on vasopressors. 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 He is on amiodarone and on heparin drip at this time. We will continue present treatment. Echocardiogram has been ordered, actually echocardiogram they were doing at the time when I saw him and we will continue to follow. I will be away till Thursday and Dr. Magaña will be covering me, so he will be following him for this weekend, but I will be back on Thursday. Juan Duong MD
--- NOTE | 2018-01-14 18:02 | CP.PCM.PN ---
Subjective - Date & Time of Evaluation Date of Evaluation: 01/14/18 Time of Evaluation: 08:00 - Subjective Subjective: admitted to ICU with gram neg sepsis UTI likely source remains intubated / sedated sensitivities not available Objective - Vital Signs/Intake and Output Vital Signs (last 24 hours): Temp Pulse Resp BP Pulse Ox 98.6 F 78 16 118/48 L 97 01/14/18 16:00 01/14/18 17:02 01/14/18 17:02 01/14/18 17:02 01/14/18 17:02 Intake and Output: 01/14/18 01/14/18 06:59 18:59 Intake Total 2870.796 2304.364 Output Total 700 945 Balance 2170.796 1359.364 - Medications Medications: Current Medications Amiodarone HCl (Cordarone) 200 mg PO BID [facility] Last Admin: 01/14/18 17:53 Dose: 200 mg Famotidine (Pepcid) 20 mg IVP DAILY [facility] Last Admin: 01/14/18 09:20 Dose: 20 mg Heparin Sodium (Porcine) (Heparin) 5,000 units SC Q8 [facility] Last Admin: 01/13/18 14:42 Dose: Not Given Norepinephrine Bitartrate 4 mg (/ Sodium Chloride) 254 mls @ 15.24 mls/hr IV .[id number] PRN; Protocol; 4 MCG/MIN PRN Reason: TITRATE PER MD ORDER Last Titration: 01/14/18 17:16 Dose: 2 mcg/min, 7.62 mls/hr Propofol (Diprivan) 1,000 mg in 100 mls @ 2.776 mls/hr IV .Q24H PRN; Protocol; 5 MCG/KG/MIN PRN Reason: Agitation Last Admin: 01/14/18 14:58 Dose: 40 mcg/kg/min, 22.208 mls/hr Sodium Chloride (Sodium Chloride 0.9%) 1,000 mls @ 70 mls/hr IV .[id number] [facility] Last Admin: 01/14/18 13:58 Dose: 70 mls/hr Meropenem 1 gm/ Sodium (Chloride) 100 mls @ 100 mls/hr IVPB Q12H [facility] PRN Reason: Protocol Last Admin: 01/14/18 15:01 Dose: 100 mls/hr Heparin Sodium/Sodium Chloride (Heparin 16940 Units/250ml 1/2 Normal Saline) 25 ,000 units in 250 mls @ 16.248 mls/hr IV .[id number] PRN; Protocol; 18 UNITS/KG/HR PRN Reason: PROTOCOL Last Admin: 01/14/18 06:30 Dose: 13 units/kg/hr, 11.734 mls/hr Aztreonam 1 gm/ Sodium (Chloride) 100 mls @ 200 mls/hr IVPB Q8H [facility] PRN Reason: Protocol Last Admin: 01/14/18 16:09 Dose: 200 mls/hr Ipratropium [place] (Atrovent) 0.5 mg IH RQ6 PRN PRN Reason: Shortness of Breath Metoprolol Tartrate (Lopressor) 2.5 mg IVP Q6 [facility] Last Admin: 01/14/18 17:53 Dose: 2.5 mg - Labs Labs: 01/14/18 05:51 01/14/18 05:51 PT 15.7 SECONDS (9.7-12.2) H 01/13/18 15:13 INR 1.4 01/13/18 15:13 APTT 87 SECONDS (21-34) H D 01/14/18 12:35 - Constitutional Appears: Confused, Chronically Ill - Head Exam Head Exam: NORMOCEPHALIC - Eye Exam Eye Exam: absent: Scleral icterus - ENT Exam ENT Exam: Mucous Membranes Dry Additional comments: ETT + - Neck Exam Neck Exam: absent: Lymphadenopathy - Respiratory Exam Respiratory Exam: Decreased Breath Sounds - Cardiovascular Exam Cardiovascular Exam: REGULAR RHYTHM - GI/Abdominal Exam GI & Abdominal Exam: Distended, Soft - Rectal Exam Rectal Exam: Deferred - Exam Exam: NORMAL INSPECTION - Extremities Exam Extremities Exam: Pedal Edema. absent: Calf Tenderness, Tenderness - Back Exam Back Exam: absent: CVA tenderness (L), CVA tenderness (R) - Neurological Exam Neurological Exam: Altered - Psychiatric Exam Psychiatric exam: Depressed - Skin Skin Exam: Dry Assessment and Plan (1) Atrial fibrillation with rapid ventricular response Status: Acute (2) Mental status alteration Status: Acute (3) Sepsis Status: Acute (4) UTI (urinary tract infection) Status: Acute (5) BPH (benign prostatic hyperplasia) Status: Acute (6) Congestive heart failure (CHF) Status: Acute - Assessment and Plan (Free Text) Assessment: await cultures of blood will adjust merrem to 1g q8h
--- NOTE | 2018-01-14 18:22 | CP.PCM.CON ---
History of Present Illness - History of Present Illness History of Present Illness: requested by PMD Reason for consultation: acute respiratory failure requiring ventilator support Patient is a 77 year old male with history of diastolic CHF, COPD, diverticulitis, HTN, peripheral edema, pneumonia who was sent in from custodial for altered mental status. Patient was intubated and put on ventilatory support. Status post cardioversion for recurrent runs of supraventricular tachycardia. Patient now intubated and sedated. Started on amiodarone drip. PMH diastolic CHF, COPD, diverticulitis, HTN, peripheral edema, pneumonia PSH: none Allergies: NKDA Review of Systems - Review of Systems Systems not reviewed;Unavailable: Intubated Past Patient History - Past Medical History & Family History Past Medical History?: Yes - Past Social History Smoking Status: Former Smoker - CARDIAC Hx Congestive Heart Failure: Yes (DIASTOLIC CHF) Hx Hypertension: Yes Hx Peripheral Edema: Yes - PULMONARY Hx Chronic Obstructive Pulmonary Disease (COPD): Yes Hx Pneumonia: Yes (BRONCHOPNEUMONIA UNSPECIFIED ORGANISM(11/04/15)) - NEUROLOGICAL Hx Neurological Disorder: Yes Other/Comment: CERVICAL CORD COMPRESSION. CERVICAL STENOSIS. NEUROPATHY - HEENT Hx HEENT Problems: No - RENAL Hx Chronic Kidney Disease: No - ENDOCRINE/METABOLIC Hx Endocrine Disorders: No - HEMATOLOGICAL/ONCOLOGICAL Hx Blood Disorders: No - INTEGUMENTARY Hx Dermatological Problems: Yes Other/Comment: LEFT LOWER EXTREMITY CELLULITIS - MUSCULOSKELETAL/RHEUMATOLOGICAL Hx Musculoskeletal Disorders: Yes Hx Back Pain: Yes Hx Osteoarthritis: Yes Other/Comment: HX: CERVICAL CORD COMPRESSION. HX: CERVICAL STENOSIS. 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, THORACIC REGION - GASTROINTESTINAL Hx Diverticulitis: Yes - GENITOURINARY/GYNECOLOGICAL Hx Genitourinary Disorders: Yes Hx Bladder Stone: Yes Hx Hematuria: Yes Hx Urinary Tract Infection: Yes - PSYCHIATRIC Hx Substance Use: No - SURGICAL HISTORY Hx Surgeries: Yes Other/Comment: HX: FLEXIBLE CYSTOSCOPY(08/28/15) - ANESTHESIA Hx Anesthesia: Yes Hx Anesthesia Reactions: No Meds Allergies/Adverse Reactions: Allergies Allergy/AdvReac Type Severity Reaction Status Date / Time No Known Allergies Allergy Verified 01/13/18 01:29 - Medications Medications: Current Medications Amiodarone HCl (Cordarone) 200 mg PO BID JOJO Last Admin: 01/14/18 17:53 Dose: 200 mg Famotidine (Pepcid) 20 mg IVP DAILY [facility] Last Admin: 01/14/18 09:20 Dose: 20 mg Heparin Sodium (Porcine) (Heparin) 5,000 units SC Q8 [facility] Last Admin: 01/13/18 14:42 Dose: Not Given Norepinephrine Bitartrate 4 mg (/ Sodium Chloride) 254 mls @ 15.24 mls/hr IV .[id number] PRN; Protocol; 4 MCG/MIN PRN Reason: TITRATE PER MD ORDER Last Titration: 01/14/18 17:16 Dose: 2 mcg/min, 7.62 mls/hr Propofol (Diprivan) 1,000 mg in 100 mls @ 2.776 mls/hr IV .Q24H PRN; Protocol; 5 MCG/KG/MIN PRN Reason: Agitation Last Admin: 01/14/18 14:58 Dose: 40 mcg/kg/min, 22.208 mls/hr Sodium Chloride (Sodium Chloride 0.9%) 1,000 mls @ 70 mls/hr IV .[id number] [facility] Last Admin: 01/14/18 13:58 Dose: 70 mls/hr Heparin Sodium/Sodium Chloride (Heparin 85072 Units/250ml 1/2 Normal Saline) 25 ,000 units in 250 mls @ 16.248 mls/hr IV .[id number] PRN; Protocol; 18 UNITS/KG/HR PRN Reason: PROTOCOL Last Admin: 01/14/18 06:30 Dose: 13 units/kg/hr, 11.734 mls/hr Aztreonam 1 gm/ Sodium (Chloride) 100 mls @ 200 mls/hr IVPB Q8H [facility] PRN Reason: Protocol Last Admin: 01/14/18 16:09 Dose: 200 mls/hr Meropenem 1 gm/ Sodium (Chloride) 100 mls @ 100 mls/hr IVPB Q8H JOJO PRN Reason: Protocol Ipratropium [place] (Atrovent) 0.5 mg IH RQ6 PRN PRN Reason: Shortness of Breath Metoprolol Tartrate (Lopressor) 2.5 mg IVP Q6 [facility] Last Admin: 01/14/18 17:53 Dose: 2.5 mg Potassium Chloride (Klor-Con 10) 10 meq PO BRK [facility] Physical Exam - Head Exam Head Exam: ATRAUMATIC, NORMOCEPHALIC - ENT Exam ENT Exam: Mucous Membranes Moist - Respiratory Exam Respiratory Exam: Decreased Breath Sounds - Cardiovascular Exam Cardiovascular Exam: Irregular Rhythm Results - Vital Signs Recent Vital Signs: Last Vital Signs Temp 98.6 F 01/14/18 16:00 Pulse 81 01/14/18 18:00 Resp 21 01/14/18 18:00 BP 104/61 01/14/18 17:34 Pulse Ox 97 01/14/18 18:00 - Labs Result Diagrams: 01/14/18 05:51 01/14/18 05:51 Labs: Laboratory Results - last 24 hr 01/13/18 01/13/18 01/14/18 20:17 22:05 05:15 WBC RBC Hgb Hct MCV MCH MCHC RDW Plt Count MPV Neut % (Auto) Lymph % (Auto) Frontier % (Auto) Eos % (Auto) Baso % (Auto) Neut # (Auto) Lymph # (Auto) Frontier # (Auto) Eos # (Auto) Baso # (Auto) Neutrophils % (Manual) Band Neutrophils % Lymphocytes % (Manual) Monocytes % (Manual) Basophils % (Manual) Platelet Estimate Large Platelets Hypochromasia (manual) Poikilocytosis (manual Anisocytosis (manual) Target Cells Ovalocytes Lilly Cells APTT 137 H* D Puncture Site Lb pCO2 50 H pO2 131 H HCO3 24.3 ABG pH 7.32 L ABG Total CO2 27.3 ABG O2 Saturation 98.8 H ABG Base Excess -0.8 ABG Hemoglobin 11.2 L ABG Carboxyhemoglobin 1.2 POC ABG HHb (Measured) 1.2 ABG Methemoglobin 1.8 Aníbal Test Na ABG Potassium A-a O2 Difference 163.0 Respiratory Index 1.2 Hgb O2 Saturation 95.8 Glucose Lactate Vent Mode Prvc Mechanical Rate 14 FiO2 50.0 Tidal Volume 500 PEEP 5 Sodium 141 Potassium 4.2 Chloride 104 Carbon Dioxide 28 Anion Gap 13 BUN 32 H Creatinine 1.3 Est GFR ( Amer) > 60 Est GFR (Non-Af Amer) 53 Random Glucose 126 H Calcium 7.5 L Phosphorus Magnesium Total Bilirubin AST ALT Alkaline Phosphatase Total Protein Albumin Globulin Albumin/Globulin Ratio Arterial Blood Potassium 01/14/18 01/14/18 01/14/18 05:51 05:51 05:51 WBC 22.3 H RBC 4.23 L Hgb 10.8 L Hct 34.9 L MCV 82.6 MCH 25.6 L MCHC 31.0 L RDW 17.2 H Plt Count 218 MPV 7.2 Neut % (Auto) 88.3 H Lymph % (Auto) 6.2 L Frontier % (Auto) 5.1 Eos % (Auto) 0.3 Baso % (Auto) 0.1 Neut # (Auto) 19.6 H Lymph # (Auto) 1.4 Frontier # (Auto) 1.1 H Eos # (Auto) 0.1 Baso # (Auto) 0.0 Neutrophils % (Manual) 67 Band Neutrophils % 23 H* Lymphocytes % (Manual) 7 L Monocytes % (Manual) 2 Basophils % (Manual) 1 Platelet Estimate Normal Large Platelets Present Hypochromasia (manual) Slight Poikilocytosis (manual Slight Anisocytosis (manual) Slight Target Cells Slight Ovalocytes Slight Lilly Cells Slight APTT 96 H D Puncture Site pCO2 pO2 HCO3 ABG pH ABG Total CO2 ABG O2 Saturation ABG Base Excess ABG Hemoglobin ABG Carboxyhemoglobin POC ABG HHb (Measured) ABG Methemoglobin Aníbal Test ABG Potassium A-a O2 Difference Respiratory Index Hgb O2 Saturation Glucose Lactate Vent Mode Mechanical Rate FiO2 Tidal Volume PEEP Sodium 142 Potassium 3.5 L Chloride 107 Carbon Dioxide 28 Anion Gap 11 BUN 28 H Creatinine 1.2 Est GFR ( Amer) > 60 Est GFR (Non-Af Amer) 59 Random Glucose 134 H Calcium 7.6 L Phosphorus 2.9 Magnesium 2.0 Total Bilirubin 0.6 AST 40 ALT 28 Alkaline Phosphatase 112 Total Protein 6.2 L Albumin 2.9 L Globulin 3.3 Albumin/Globulin Ratio 0.9 L Arterial Blood Potassium 01/14/18 01/14/18 12:35 14:33 WBC RBC Hgb Hct MCV MCH MCHC RDW Plt Count MPV Neut % (Auto) Lymph % (Auto) Frontier % (Auto) Eos % (Auto) Baso % (Auto) Neut # (Auto) Lymph # (Auto) Frontier # (Auto) Eos # (Auto) Baso # (Auto) Neutrophils % (Manual) Band Neutrophils % Lymphocytes % (Manual) Monocytes % (Manual) Basophils % (Manual) Platelet Estimate Large Platelets Hypochromasia (manual) Poikilocytosis (manual Anisocytosis (manual) Target Cells Ovalocytes [place] Cells APTT 87 H D Puncture Site Lb pCO2 42 pO2 100 HCO3 22.0 ABG pH 7.33 L ABG Total CO2 23.4 ABG O2 Saturation 98.0 ABG Base Excess -3.7 L ABG Hemoglobin ABG Carboxyhemoglobin POC ABG HHb (Measured) ABG Methemoglobin Aníbal Test Na ABG Potassium 2.7 L A-a O2 Difference 133.0 Respiratory Index 1.3 Hgb O2 Saturation Glucose 115 H Lactate 0.7 Vent Mode Mechanical Rate FiO2 40.0 Tidal Volume 500 PEEP 5 Sodium 145.0 Potassium Chloride 117.0 H Carbon Dioxide Anion Gap BUN Creatinine Est GFR ( Amer) Est GFR (Non-Af Amer) Random Glucose Calcium Phosphorus Magnesium Total Bilirubin AST ALT Alkaline Phosphatase Total Protein Albumin Globulin Albumin/Globulin Ratio Arterial Blood Potassium 2.7 L Assessment & Plan (1) Acute respiratory failure with hypoxemia Status: Acute (2) Atrial fibrillation with rapid ventricular response Status: Acute (3) SVT (supraventricular tachycardia) Status: Acute (4) UTI (urinary tract infection) Status: Acute (5) COPD (chronic obstructive pulmonary disease) Status: Acute
[2018-01-14] MEDS: Potassium Chloride 10 mEq ER Tab PO SCH (18:26)
[2018-01-14] MEDS ORDERED: Meropenem 1 GM in Sodium Chloride 0.9% 100 ML IVPB SCH (20:00)
[2018-01-15] MEDS: Metoprolol 1 mg/ml Inj IVP SCH ×2 (00:04→05:15)
[2018-01-15] MEDS: Propofol 10 mg/ml 1,000 MG/100 ML VIAL IV PRN ×6 (01:45→23:45)
[2018-01-15] MEDS: Heparin25000 units/250ml 1/2NS 25,000 UNITS/250 ML BAG IV PRN (02:56)
[2018-01-15] MEDS: Sodium Chloride 0.9% 1,000 ML IV SCH ×2 (05:34→08:30)
[2018-01-15 06:04] LABS: ABG ALLEN TEST YES; ARTERIAL BLOOD GAS HCO3 27.1 mmol/L (21-28); ARTERIAL BLOOD GAS HEMOGLOBIN 10.4 g/dL (11.7-17.4); ARTERIAL BLOOD GAS O2 SAT 98.6 % (95-98); ARTERIAL BLOOD GAS PCO2 44 mm/Hg (35-45); ARTERIAL BLOOD GAS PH 7.41 (7.35-7.45); ARTERIAL BLOOD GAS PO2 113 mm/Hg (80-100); ARTERIAL BLOOD GAS TCO2 29.3 mmol/L (22-28)
[2018-01-15 06:32] LABS: BASO % 0.1 % (0.0-2.0); EOS # 0.4 K/uL (0.0-0.7); EOS % 2.1 % (0.0-4.0); HEMOGLOBIN 9.8 g/dL (12.0-18.0); LYMPH # 1.4 K/uL (1.0-4.3); LYMPH % 7.6 % (20.0-40.0); MEAN CORPUSCULAR HEMOGLOBIN 25.5 pg (27.0-31.0); MEAN CORPUSCULAR HGB CONC 31.1 g/dL (33.0-37.0); MEAN PLATELET VOLUME 7.5 fL (7.2-11.7); MONO # 1.3 K/uL (0.0-0.8); MONO % 6.9 % (0.0-10.0); NEUT # 15.2 K/uL (1.8-7.0); NEUT % 83.3 % (50.0-75.0); NRBC % 0.2 % (0.0-2.0); PLATELET COUNT 180 K/uL (130-400); RBC 3.84 Mil/uL (4.40-5.90); RED CELL DISTRIBUTION WIDTH 17.5 % (11.5-14.5); WHITE BLOOD COUNT 18.2 K/uL (4.8-10.8)
[2018-01-15 07:06] LABS: ALB/GLOB RATIO 0.9 (1.0-2.1); ALBUMIN 2.6 g/dL (3.5-5.0); ALT/SGPT 25 U/L (21-72); AST/SGOT 26 U/L (17-59); BLOOD UREA NITROGEN 22 mg/dL (9-20); CALCIUM 7.3 mg/dl (8.6-10.4); GFR NON-AFRICAN AMERICAN > 60
[2018-01-15] MEDS: Meropenem 1 GM in Sodium Chloride 0.9% 100 ML IVPB SCH ×3 (08:00→23:41)
[2018-01-15] MEDS: Potassium Chloride 10 mEq ER Tab PO SCH (08:03)
[2018-01-15 08:36] LABS: BANDS 31 % (0-2); EOSINOPHIL 1 % (0-4); LYMPHOCYTE 5 % (20-40); MONOCYTE 5 % (0-10); NEUTROPHIL 58 % (50-75); TOTAL CELLS COUNTED 100
[2018-01-15 08:37] LABS: ANISOCYTOSIS SLIGHT; HYPOCHROMIC SLIGHT; PLATELET ESTIMATE NORMAL (NORMAL); POLYCHROMIC SLIGHT; TARGET CELLS SLIGHT
--- NOTE | 2018-01-15 09:28 | RAD ---
Date of service: 01/15/2018 HISTORY: on ventilator COMPARISON: 01/14/2018 FINDINGS: LUNGS: No active pulmonary disease. PLEURA: Minimal blunting of left costophrenic angle may reflect small pleural effusion. No right pleural effusion. No pneumothorax. CARDIOVASCULAR: Normal heart size. No congestive change. ET tube, NG tube and right PICC catheter are unchanged. OSSEOUS STRUCTURES: No significant abnormalities. VISUALIZED UPPER ABDOMEN: Normal. OTHER FINDINGS: None. IMPRESSION: No infiltrate. Possible small left pleural effusion. Lines and tubes unchanged.
[2018-01-15] MEDS: Aztreonam 1 GM in Sodium Chloride 0.9% 100 ML IVPB SCH ×2 (09:29)
[2018-01-15] MEDS ORDERED: Potassium Phosphate 15 MMOLE in Dextrose 5% In Water 250 ML IVPB ONE (10:00)
[2018-01-15] MEDS ORDERED: Potassium Chloride 20 mEq/15 ml LIQ UD PO ONE (10:00)
--- NOTE | 2018-01-15 10:08 | CP.PCM.PN ---
Subjective - Date & Time of Evaluation Date of Evaluation: 01/15/18 Time of Evaluation: 14:45 - Subjective Subjective: clinically same Objective - Vital Signs/Intake and Output Vital Signs (last 24 hours): Temp Pulse Resp BP Pulse Ox 97.1 F L 74 14 97/63 L 97 01/15/18 08:00 01/15/18 08:02 01/15/18 08:02 01/15/18 08:02 01/15/18 08:02 Intake and Output: 01/15/18 01/15/18 06:59 18:59 Intake Total 2471.7 456.9 Output Total 780 250 Balance 1691.7 206.9 - Medications Medications: Current Medications Albuterol/Ipratropium (Duoneb 3 Mg/0.5 Mg (3 Ml) Ud) 3 ml INH RQ4 JOJO Amiodarone HCl (Cordarone) 400 mg PO Q8H [facility] Last Admin: 01/15/18 09:55 Dose: 400 mg Famotidine (Pepcid) 20 mg IVP DAILY [facility] Last Admin: 01/15/18 09:54 Dose: 20 mg Heparin Sodium (Porcine) (Heparin) 5,000 units SC Q8 [facility] Last Admin: 01/13/18 14:42 Dose: Not Given Hydrocortisone Sodium Succinate (Solu-Cortef) 100 mg IV Q8H [facility] Norepinephrine Bitartrate 4 mg (/ Sodium Chloride) 254 mls @ 15.24 mls/hr IV .[id number] PRN; Protocol; 4 MCG/MIN PRN Reason: TITRATE PER MD ORDER Last Titration: 01/15/18 09:51 Dose: 0 mcg/min, 0 mls/hr Propofol (Diprivan) 1,000 mg in 100 mls @ 2.776 mls/hr IV .Q24H PRN; Protocol; 5 MCG/KG/MIN PRN Reason: Agitation Last Admin: 01/15/18 09:52 Dose: 35 mcg/kg/min, 19.432 mls/hr Heparin Sodium/Sodium Chloride (Heparin 99255 Units/250ml 1/2 Normal Saline) 25 ,000 units in 250 mls @ 16.248 mls/hr IV .[id number] PRN; Protocol; 18 UNITS/KG/HR PRN Reason: PROTOCOL Last Admin: 01/15/18 02:56 Dose: 13 units/kg/hr, 11.734 mls/hr Meropenem 1 gm/ Sodium (Chloride) 100 mls @ 100 mls/hr IVPB Q8H [facility] PRN Reason: Protocol Last Admin: 01/15/18 08:00 Dose: 100 mls/hr Potassium Phosphate 15 mmole/ (Dextrose) 255 mls @ 42.5 mls/hr IVPB ONCE ONE Stop: 01/15/18 15:59 Last Admin: 01/15/18 09:53 Dose: 42.5 mls/hr Insulin Aspart (Novolog) 0 unit SC Q6H [facility] PRN Reason: Protocol - Labs Labs: 01/15/18 06:23 01/15/18 06:23 PT 15.7 SECONDS (9.7-12.2) H 01/13/18 15:13 INR 1.4 01/13/18 15:13 APTT 68 SECONDS (21-34) H D 01/15/18 06:23 - Constitutional Appears: Well - Head Exam Head Exam: ATRAUMATIC, NORMAL INSPECTION, NORMOCEPHALIC - Eye Exam Eye Exam: EOMI, Normal appearance, PERRL Pupil Exam: NORMAL ACCOMODATION, PERRL - ENT Exam ENT Exam: Mucous Membranes Moist, Normal Exam - Neck Exam Neck Exam: Full ROM, Normal Inspection. absent: Lymphadenopathy - Respiratory Exam Respiratory Exam: Decreased Breath Sounds - Cardiovascular Exam Cardiovascular Exam: REGULAR RHYTHM, +S1, +S2 - GI/Abdominal Exam GI & Abdominal Exam: Soft, Diminished Bowel Sounds - Rectal Exam Rectal Exam: Deferred Assessment and Plan (1) Atrial fibrillation Status: Acute (2) Fever Status: Acute (3) Mental status alteration Status: Acute (4) UTI (urinary tract infection) Status: Acute (5) BPH (benign prostatic hyperplasia) Status: Acute (6) COPD (chronic obstructive pulmonary disease) Status: Acute (7) Congestive heart failure (CHF) Status: Acute (8) GERD (gastroesophageal reflux disease) Status: Acute (9) Hematuria Status: Acute (10) Hypertension Status: Acute (11) Pneumonia Status: Acute (12) Urinary retention Status: Acute
--- NOTE | 2018-01-15 11:11 | CP.CCUPN ---
<Yamil Corona - Last Filed: 01/15/18 11:51> CCU Subjective - Physician Review Subjective (Free Text): ICU Progress note Patient seen and examined at bedside. Patient is sedated and intubated. Unable to provide history. 01/15/18 11:51 CCU Objective - Vital Signs / Intake & Output Vital Signs (Last 4 hours): Vital Signs Temp Pulse Resp BP Pulse Ox 01/15/18 11:05 71 24 99/55 L 97 01/15/18 10:32 66 15 88/48 L 96 01/15/18 10:30 64 25 H 96 01/15/18 10:02 74 20 107/60 98 01/15/18 10:00 66 21 96 01/15/18 09:32 71 21 107/61 95 01/15/18 09:30 72 21 96 01/15/18 09:02 75 13 111/69 96 01/15/18 09:00 67 13 98 01/15/18 08:32 59 L 16 110/62 97 01/15/18 08:30 61 16 97 01/15/18 08:02 74 14 97/63 L 97 01/15/18 08:00 97.1 F L 80 14 97 01/15/18 07:33 80 14 96/62 L 95 Intake and Output (Last 8hrs): Intake & Output 01/14/18 01/15/18 01/15/18 22:59 06:59 14:59 Intake Total 1562.63 1705.0 995.0 Output Total 515 540 500 Balance 1047.63 1165.0 495.0 Weight 191 lb 12.8 oz Intake: IV 168.13 446.8 133.5 Intake, IV Amount 1014.5 948.2 526.5 LFA #18 93.6 93.6 58.5 Left Wrist 260.1 620 310 Right Distal Port Femoral 116.0 Right Distal Port PICC 64.7 160.2 96.5 Right Medial Port Femoral 38.2 Right Proximal Port 440 Femoral Right Proximal Port PICC 1.9 74.4 61.5 Oral 160 Tube Feeding 280 280 175 Other 100 30 Output: Urine 515 540 500 Urethral (Olivares) 515 540 500 Other: # Bowel Movements 0 0 0 - Physical Exam Head: Positive for: Atraumatic, Normocephalic Mouth: Positive for: Dry, Other (ETT, OGT in place) Nose (External): Positive for: Atraumatic Respiratory/Chest: Positive for: Decreased Breath Sounds. Negative for: Respiratory Distress (Vented) Cardiovascular: Positive for: Regular Rate and Rhythm, Normal S1, S2 Abdomen: Positive for: Normal Bowel Sounds, Other (Olivares draining brown urine. ) . Negative for: Tenderness Upper Extremity: Positive for: Edema (bilateral edema on upper extremities ), Other (PICC line in place) Lower Extremity: Positive for: Edema (Edema of bilateral lower extremities. Unable to palpate DP pulses on LLE secondary to edema. ), Other (Right lower extremity: Doralis pedis pulse present) Neurological: Positive for: Other (Altered, sedated) Psychiatric: Positive for: Other (Altered) - Medications Active Medications: Active Medications Generic Name Dose Route Start Last Admin Trade Name Freq PRN Reason Stop Dose Admin Albuterol/Ipratropium 3 ml 01/15/18 12:00 Duoneb 3 Mg/0.5 Mg (3 Ml) Ud INH RQ4 JOJO Amiodarone HCl 400 mg 01/15/18 10:00 01/15/18 09:55 Cordarone PO 400 mg Q8H JOJO Administration Famotidine 20 mg 01/13/18 10:00 01/15/18 09:54 Pepcid IVP 20 mg DAILY JOJO Administration Heparin Sodium (Porcine) 5,000 units 01/12/18 22:00 01/13/18 14:42 Heparin SC Not Given Q8 JOJO Hydrocortisone Sodium Succinate 100 mg 01/15/18 17:00 Solu-Cortef IV Q8H JOJO Norepinephrine Bitartrate 4 mg 254 mls @ 15.24 mls/hr 01/12/18 15:34 09:51 / Sodium Chloride IV 0 mcg/min .[id number] PRN 0 mls/hr TITRATE PER MD ORDER Titration Protocol 4 MCG/MIN Propofol 1,000 mg in 100 mls @ 2.776 mls/hr 01/12/18 19:21 01/15/18 09:52 Diprivan IV 35 mcg/kg/min .Q24H PRN 19.432 mls/hr Agitation Administration Protocol 5 MCG/KG/MIN Heparin Sodium/Sodium Chloride 25,000 units in 250 mls @ 16.248 mls/hr 16:00 01/15/18 02:56 Heparin 89853 Units/250ml 1/2 Normal Saline IV 13 units/kg/hr .[id number] PRN 11.734 mls/hr PROTOCOL Administration Protocol 18 UNITS/KG/HR Meropenem 1 gm/ Sodium 100 mls @ 100 mls/hr 01/15/18 00:00 01/15/18 08:00 Chloride IVPB 100 mls/hr Q8H [facility] Administration Protocol Potassium Phosphate 15 mmole/ 255 mls @ 42.5 mls/hr 01/15/18 10:00 01/15/18 09:53 Dextrose IVPB 01/15/18 15:59 42.5 mls/hr ONCE ONE Administration Insulin Aspart 0 unit 01/15/18 12:00 Novolog SC Q6H [facility] Protocol - Patient Studies Lab Studies: Microbiology Studies 01/13/18 15:13 Gram Stain - Final Trachasp Sputum Culture - Final Pseudomonas Aeruginosa 01/13/18 05:55 Gram Stain - Final Sputum Sputum Culture - Final Pseudomonas Aeruginosa 01/14/18 10:48 Blood Culture - Preliminary Blood-Thru Central Line NO GROWTH AFTER 24 HOURS 01/14/18 10:48 Blood Culture - Preliminary Blood-Thru Central Line NO GROWTH AFTER 24 HOURS 01/12/18 12:50 Blood Culture - Preliminary Blood Proteus Mirabilis Gram Stain - Preliminary 01/14/18 10:48 Urine Culture - Preliminary Urine,Clean Catch Gram Negative Cuong Gram Positive Cocci 01/12/18 12:53 Blood Culture - Preliminary Blood Gram Negative Cuong Gram Stain - Final Lab Studies 01/15/18 01/15/18 01/15/18 Range/Units 06:23 06:23 06:23 WBC 18.2 H (4.8-10.8) K/uL RBC 3.84 L (4.40-5.90) Mil/uL Hgb 9.8 L (12.0-18.0) g/dL Hct 31.5 L (35.0-51.0) % MCV 82.0 (80.0-94.0) fL MCH 25.5 L (27.0-31.0) pg MCHC 31.1 L (33.0-37.0) g/dL RDW 17.5 H (11.5-14.5) % Plt Count 180 (130-400) K/uL MPV 7.5 (7.2-11.7) fL Neut % (Auto) 83.3 H (50.0-75.0) % Lymph % (Auto) 7.6 L (20.0-40.0) % [place] % (Auto) 6.9 (0.0-10.0) % Eos % (Auto) 2.1 (0.0-4.0) % Baso % (Auto) 0.1 (0.0-2.0) % Neut # (Auto) 15.2 H (1.8-7.0) K/uL Lymph # (Auto) 1.4 (1.0-4.3) K/uL [place] # (Auto) 1.3 H (0.0-0.8) K/uL Eos # (Auto) 0.4 (0.0-0.7) K/uL Baso # (Auto) 0.0 (0.0-0.2) K/uL Neutrophils % (Manual) 58 (50-75) % Band Neutrophils % 31 H* (0-2) % Lymphocytes % (Manual) 5 L (20-40) % Monocytes % (Manual) 5 (0-10) % Eosinophils % (Manual) 1 (0-4) % Platelet Estimate Normal (NORMAL) Polychromasia Slight Hypochromasia (manual) Slight Anisocytosis (manual) Slight Target Cells Slight APTT 68 H D (21-34) SECONDS Puncture Site pCO2 (35-45) mm/Hg pO2 (80-100) mm/Hg HCO3 (21-28) mmol/L ABG pH (7.35-7.45) ABG Total CO2 (22-28) mmol/L ABG O2 Saturation (95-98) % ABG Base Excess (-2.0-3.0) mmol/L ABG Hemoglobin (11.7-17.4) g/dL ABG Carboxyhemoglobin (0.5-1.5) % POC ABG HHb (Measured) (0.0-5.0) % ABG Methemoglobin (0.0-3.0) % Aníbal Test ABG Potassium (3.6-5.2) mmol/L A-a O2 Difference mm/Hg Respiratory Index Hgb O2 Saturation (95.0-98.0) % Sodium 145 (132-148) mmol/l Chloride 110 H (98-107) mmol/L Glucose (75-110) mg/dl Lactate (0.7-2.1) mmol/L Vent Mode Mechanical Rate FiO2 % Tidal Volume PEEP Potassium 3.6 (3.6-5.2) mmol/L Carbon Dioxide 30 (22-30) mmol/L Anion Gap 9 L (10-20) BUN 22 H (9-20) mg/dL Creatinine 0.9 (0.8-1.5) mg/dL Est GFR ( Amer) > 60 Est GFR (Non-Af Amer) > 60 Random Glucose 149 H (75-110) mg/dL Calcium 7.3 L (8.6-10.4) mg/dl Phosphorus 1.8 L (2.5-4.5) mg/dL Magnesium 2.0 (1.6-2.3) mg/dL Total Bilirubin 0.3 (0.2-1.3) mg/dL AST 26 (17-59) U/L ALT 25 (21-72) U/L Alkaline Phosphatase 128 H (38-126) U/L Total Protein 5.5 L (6.3-8.3) g/dL Albumin 2.6 L (3.5-5.0) g/dL Globulin 2.9 (2.2-3.9) gm/dL Albumin/Globulin Ratio 0.9 L (1.0-2.1) Arterial Blood Potassium (3.6-5.2) mmol/L 01/15/18 01/14/18 01/14/18 Range/Units 05:25 18:15 14:33 WBC (4.8-10.8) K/uL RBC (4.40-5.90) Mil/uL Hgb (12.0-18.0) g/dL Hct (35.0-51.0) % MCV (80.0-94.0) fL MCH (27.0-31.0) pg MCHC (33.0-37.0) g/dL RDW (11.5-14.5) % Plt Count (130-400) K/uL MPV (7.2-11.7) fL Neut % (Auto) (50.0-75.0) % Lymph % (Auto) (20.0-40.0) % [place] % (Auto) (0.0-10.0) % Eos % (Auto) (0.0-4.0) % Baso % (Auto) (0.0-2.0) % Neut # (Auto) (1.8-7.0) K/uL Lymph # (Auto) (1.0-4.3) K/uL [place] # (Auto) (0.0-0.8) K/uL Eos # (Auto) (0.0-0.7) K/uL Baso # (Auto) (0.0-0.2) K/uL Neutrophils % (Manual) (50-75) % Band Neutrophils % (0-2) % Lymphocytes % (Manual) (20-40) % Monocytes % (Manual) (0-10) % Eosinophils % (Manual) (0-4) % Platelet Estimate (NORMAL) Polychromasia Hypochromasia (manual) Anisocytosis (manual) Target Cells APTT 75 H D (21-34) SECONDS Puncture Site Lra Lb pCO2 44 42 (35-45) mm/Hg pO2 113 H 100 (80-100) mm/Hg HCO3 27.1 22.0 (21-28) mmol/L ABG pH 7.41 7.33 L (7.35-7.45) ABG Total CO2 29.3 H 23.4 (22-28) mmol/L ABG O2 Saturation 98.6 H 98.0 (95-98) % ABG Base Excess 2.8 -3.7 L (-2.0-3.0) mmol/L ABG Hemoglobin 10.4 L (11.7-17.4) g/dL ABG Carboxyhemoglobin 1.2 (0.5-1.5) % POC ABG HHb (Measured) 1.4 (0.0-5.0) % ABG Methemoglobin 1.5 (0.0-3.0) % Aníbal Test Yes Na ABG Potassium 2.7 L (3.6-5.2) mmol/L A-a O2 Difference 117.0 133.0 mm/Hg Respiratory Index 1.0 1.3 Hgb O2 Saturation 95.9 (95.0-98.0) % Sodium 145.0 (132-148) mmol/l Chloride 117.0 H (98-107) mmol/L Glucose 115 H (75-110) mg/dl Lactate 0.7 (0.7-2.1) mmol/L Vent Mode Prvc Mechanical Rate 16 FiO2 40.0 40.0 % Tidal Volume 500 500 PEEP 5 5 Potassium (3.6-5.2) mmol/L Carbon Dioxide (22-30) mmol/L Anion Gap (10-20) BUN (9-20) mg/dL Creatinine (0.8-1.5) mg/dL Est GFR ( Amer) Est GFR (Non-Af Amer) Random Glucose (75-110) mg/dL Calcium (8.6-10.4) mg/dl Phosphorus (2.5-4.5) mg/dL Magnesium (1.6-2.3) mg/dL Total Bilirubin (0.2-1.3) mg/dL AST (17-59) U/L ALT (21-72) U/L Alkaline Phosphatase (38-126) U/L Total Protein (6.3-8.3) g/dL Albumin (3.5-5.0) g/dL Globulin (2.2-3.9) gm/dL Albumin/Globulin Ratio (1.0-2.1) Arterial Blood Potassium 2.7 L (3.6-5.2) mmol/L 01/14/18 Range/Units 12:35 WBC (4.8-10.8) K/uL RBC (4.40-5.90) Mil/uL Hgb (12.0-18.0) g/dL Hct (35.0-51.0) % MCV (80.0-94.0) fL MCH (27.0-31.0) pg MCHC (33.0-37.0) g/dL RDW (11.5-14.5) % Plt Count (130-400) K/uL MPV (7.2-11.7) fL Neut % (Auto) (50.0-75.0) % Lymph % (Auto) (20.0-40.0) % [place] % (Auto) (0.0-10.0) % Eos % (Auto) (0.0-4.0) % Baso % (Auto) (0.0-2.0) % Neut # (Auto) (1.8-7.0) K/uL Lymph # (Auto) (1.0-4.3) K/uL [place] # (Auto) (0.0-0.8) K/uL Eos # (Auto) (0.0-0.7) K/uL Baso # (Auto) (0.0-0.2) K/uL Neutrophils % (Manual) (50-75) % Band Neutrophils % (0-2) % Lymphocytes % (Manual) (20-40) % Monocytes % (Manual) (0-10) % Eosinophils % (Manual) (0-4) % Platelet Estimate (NORMAL) Polychromasia Hypochromasia (manual) Anisocytosis (manual) Target Cells APTT 87 H D (21-34) SECONDS Puncture Site pCO2 (35-45) mm/Hg pO2 (80-100) mm/Hg HCO3 (21-28) mmol/L ABG pH (7.35-7.45) ABG Total CO2 (22-28) mmol/L ABG O2 Saturation (95-98) % ABG Base Excess (-2.0-3.0) mmol/L ABG Hemoglobin (11.7-17.4) g/dL ABG Carboxyhemoglobin (0.5-1.5) % POC ABG HHb (Measured) (0.0-5.0) % ABG Methemoglobin (0.0-3.0) % Aníbal Test ABG Potassium (3.6-5.2) mmol/L A-a O2 Difference mm/Hg Respiratory Index Hgb O2 Saturation (95.0-98.0) % Sodium (132-148) mmol/l Chloride (98-107) mmol/L Glucose (75-110) mg/dl Lactate (0.7-2.1) mmol/L Vent Mode Mechanical Rate FiO2 % Tidal Volume PEEP Potassium (3.6-5.2) mmol/L Carbon Dioxide (22-30) mmol/L Anion Gap (10-20) BUN (9-20) mg/dL Creatinine (0.8-1.5) mg/dL Est GFR ( Amer) Est GFR (Non-Af Amer) Random Glucose (75-110) mg/dL Calcium (8.6-10.4) mg/dl Phosphorus (2.5-4.5) mg/dL Magnesium (1.6-2.3) mg/dL Total Bilirubin (0.2-1.3) mg/dL AST (17-59) U/L ALT (21-72) U/L Alkaline Phosphatase (38-126) U/L Total Protein (6.3-8.3) g/dL Albumin (3.5-5.0) g/dL Globulin (2.2-3.9) gm/dL Albumin/Globulin Ratio (1.0-2.1) Arterial Blood Potassium (3.6-5.2) mmol/L Laboratory Results - last 24 hr 01/14/18 01/14/18 01/14/18 12:35 14:33 18:15 WBC RBC Hgb Hct MCV MCH MCHC RDW Plt Count MPV Neut % (Auto) Lymph % (Auto) [place] % (Auto) Eos % (Auto) Baso % (Auto) Neut # (Auto) Lymph # (Auto) [place] # (Auto) Eos # (Auto) Baso # (Auto) Neutrophils % (Manual) Band Neutrophils % Lymphocytes % (Manual) Monocytes % (Manual) Eosinophils % (Manual) Platelet Estimate Polychromasia Hypochromasia (manual) Anisocytosis (manual) Target Cells APTT 87 H D 75 H D Puncture Site Lb pCO2 42 pO2 100 HCO3 22.0 ABG pH 7.33 L ABG Total CO2 23.4 ABG O2 Saturation 98.0 ABG Base Excess -3.7 L ABG Hemoglobin ABG Carboxyhemoglobin POC ABG HHb (Measured) ABG Methemoglobin Aníbal Test Na ABG Potassium 2.7 L A-a O2 Difference 133.0 Respiratory Index 1.3 Hgb O2 Saturation Sodium 145.0 Chloride 117.0 H Glucose 115 H Lactate 0.7 Vent Mode Mechanical Rate FiO2 40.0 Tidal Volume 500 PEEP 5 Potassium Carbon Dioxide Anion Gap BUN Creatinine Est GFR ( Amer) Est GFR (Non-Af Amer) Random Glucose Calcium Phosphorus Magnesium Total Bilirubin AST ALT Alkaline Phosphatase Total Protein Albumin Globulin Albumin/Globulin Ratio Arterial Blood Potassium 2.7 L 01/15/18 01/15/18 01/15/18 05:25 06:23 06:23 WBC 18.2 H RBC 3.84 L Hgb 9.8 L Hct 31.5 L MCV 82.0 MCH 25.5 L MCHC 31.1 L RDW 17.5 H Plt Count 180 MPV 7.5 Neut % (Auto) 83.3 H Lymph % (Auto) 7.6 L [place] % (Auto) 6.9 Eos % (Auto) 2.1 Baso % (Auto) 0.1 Neut # (Auto) 15.2 H Lymph # (Auto) 1.4 [place] # (Auto) 1.3 H Eos # (Auto) 0.4 Baso # (Auto) 0.0 Neutrophils % (Manual) 58 Band Neutrophils % 31 H* Lymphocytes % (Manual) 5 L Monocytes % (Manual) 5 Eosinophils % (Manual) 1 Platelet Estimate Normal Polychromasia Slight Hypochromasia (manual) Slight Anisocytosis (manual) Slight Target Cells Slight APTT Puncture Site Lra pCO2 44 pO2 113 H HCO3 27.1 ABG pH 7.41 ABG Total CO2 29.3 H ABG O2 Saturation 98.6 H ABG Base Excess 2.8 ABG Hemoglobin 10.4 L ABG Carboxyhemoglobin 1.2 POC ABG HHb (Measured) 1.4 ABG Methemoglobin 1.5 Aníbal Test Yes ABG Potassium A-a O2 Difference 117.0 Respiratory Index 1.0 Hgb O2 Saturation 95.9 Sodium 145 Chloride 110 H Glucose Lactate Vent Mode Prvc Mechanical Rate 16 FiO2 40.0 Tidal Volume 500 PEEP 5 Potassium 3.6 Carbon Dioxide 30 Anion Gap 9 L BUN 22 H Creatinine 0.9 Est GFR ( Amer) > 60 Est GFR (Non-Af Amer) > 60 Random Glucose 149 H Calcium 7.3 L Phosphorus 1.8 L Magnesium 2.0 Total Bilirubin 0.3 AST 26 ALT 25 Alkaline Phosphatase 128 H Total Protein 5.5 L Albumin 2.6 L Globulin 2.9 Albumin/Globulin Ratio 0.9 L Arterial Blood Potassium 01/15/18 06:23 WBC RBC Hgb Hct MCV MCH MCHC RDW Plt Count MPV Neut % (Auto) Lymph % (Auto) [place] % (Auto) Eos % (Auto) Baso % (Auto) Neut # (Auto) Lymph # (Auto) [place] # (Auto) Eos # (Auto) Baso # (Auto) Neutrophils % (Manual) Band Neutrophils % Lymphocytes % (Manual) Monocytes % (Manual) Eosinophils % (Manual) Platelet Estimate Polychromasia Hypochromasia (manual) Anisocytosis (manual) Target Cells APTT 68 H D Puncture Site pCO2 pO2 HCO3 ABG pH ABG Total CO2 ABG O2 Saturation ABG Base Excess ABG Hemoglobin ABG Carboxyhemoglobin POC ABG HHb (Measured) ABG Methemoglobin Aníbal Test ABG Potassium A-a O2 Difference Respiratory Index Hgb O2 Saturation Sodium Chloride Glucose Lactate Vent Mode Mechanical Rate FiO2 Tidal Volume PEEP Potassium Carbon Dioxide Anion Gap BUN Creatinine Est GFR ( Amer) Est GFR (Non-Af Amer) Random Glucose Calcium Phosphorus Magnesium Total Bilirubin AST ALT Alkaline Phosphatase Total Protein Albumin Globulin Albumin/Globulin Ratio Arterial Blood Potassium EKG/Cardiology Studies: Cardiology / EKG Studies 01/14/18 14:35 EKG [ELECTROCARDIOGRAM] Stat Comment: Mode Of Transportation: Reason For Exam: QTc Fingerstick Blood Sugar Results: 168 Review of Systems - Review of Systems Systems not reviewed;Unavailable: Intubated Assessment/Plan - Assessment and Plan (Free Text) Assessment: 77 year old male with history of diastolic CHF, COPD, diverticulitis, HTN, peripheral edema, pneumonia who presented from [facility] for altered mental status. Patient was found to be hypotensive with leukocytosis. On arrival to ICU , patient was noted to be very agitated and in respiratory distress and was intubated. Patient intermittently went SVT with rate into 180s, has required cardioversion, last 2 days ago. Switched from Amiodarone drip to Amiodarone PO yesterday with no evidence of SVT. Plan: Neuro: Altered mental status CT head Mild age related neuro degenerative changes are appreciated which appear age appropriate. No definite acute intracranial findings by standard CT criteria. Follow-up CT or MRI are available if clinically warranted. Sedated with Propofol Cardiovascular Remained in SR in 70s Currently on Levophed On Amiodarone 400mg PO Q8 Hx of diastolic CHF proBNP 1370 Troponin 0.0340 ECHO: RV moderately dilated. Moderate TR. PICC line placed Senior [employer] Dr. Blanco consulted, help appreciated Pulmonary CXR No interval pathology noted. Patient found to be in respiratory distress and intubated on arrival Sedated on Propofol Dopplers negative for clots. D-dimer [address] angio cancelled, however patient already on Heparin drip GI Pepcid 20mg IV Started on NG tube feeds Renal BUN 22 Cr 0.9 I&Os Endo Maintain euglycemia ID White count 18.2 with bands 31 Not febrile currently Aztreonam, Meropenem UA 3+ LE, 2+ protein 2+ blood moderate bacteria WBC 1186 Blood culture prelim: GN rods urine culture, MRSA screen sent. Hydrocortisone 100mg IV Q8 ID Dr. Duong consulted, help appreciated Heme/Onc H/H stable PPX: Pepcid, Heparin drip Social: Spoke to patient's son Leonid Malone who stated that he would like to have patient's code status changed to DNR given patient's poor quality of life. Case discussed with Dr. Holt <Edu Holt - Last Filed: 01/15/18 18:15> CCU Objective - Vital Signs / Intake & Output Vital Signs (Last 4 hours): Vital Signs Temp Pulse Resp BP Pulse Ox 01/15/18 18:02 61 25 H 100/59 L 96 01/15/18 18:00 57 L 18 96 01/15/18 17:33 69 28 H 91/51 L 94 L 01/15/18 17:30 63 24 95 01/15/18 17:02 56 L 12 113/53 L 96 01/15/18 17:00 53 L 13 95 01/15/18 16:32 57 L 15 105/60 95 01/15/18 16:30 58 L 19 95 01/15/18 16:02 64 17 113/66 95 01/15/18 16:00 6 F L 63 22 95 01/15/18 15:32 67 34 H 110/69 94 L 01/15/18 15:30 65 18 91 L 01/15/18 15:02 62 21 105/62 93 L 01/15/18 15:00 59 L 21 93 L 01/15/18 14:32 67 23 103/63 91 L 01/15/18 14:30 67 19 91 L Intake and Output (Last 8hrs): Intake & Output 01/15/18 01/15/18 01/15/18 06:59 14:59 22:59 Intake Total 1705.0 1430.5 549.0 Output Total 540 610 210 Balance 1165.0 820.5 339.0 Weight 191 lb 12.8 oz Intake: IV 446.8 233.5 Intake, IV Amount 948.2 747.0 309.0 LFA #18 93.6 93.6 46.8 Left Wrist 620 310 100 Right Distal Port PICC 160.2 154.4 77.2 Right Proximal Port PICC 74.4 189.0 85.0 Oral 170 100 Tube Feeding 280 280 140 Other 30 Output: Urine 540 610 210 Urethral (Olivares) 540 610 210 Other: # Bowel Movements 0 0 0 - Medications Active Medications: Active Medications Generic Name Dose Route Start Last Admin Trade Name Freq PRN Reason Stop Dose Admin Albuterol/Ipratropium 3 ml 01/15/18 12:00 01/15/18 11:39 Duoneb 3 Mg/0.5 Mg (3 Ml) Ud INH 3 ml RQ4 JOJO Administration Amiodarone HCl 400 mg 01/15/18 10:00 01/15/18 18:02 Cordarone PO 400 mg Q8H JOJO Administration Famotidine 20 mg 01/13/18 10:00 01/15/18 09:54 Pepcid IVP 20 mg DAILY JOJO Administration Heparin Sodium (Porcine) 5,000 units 01/12/18 22:00 01/13/18 14:42 Heparin SC Not Given Q8 JOJO Hydrocortisone Sodium Succinate 100 mg 01/15/18 17:00 01/15/18 17:50 Solu-Cortef IV 100 mg Q8H JOJO Administration Norepinephrine Bitartrate 4 mg 254 mls @ 15.24 mls/hr 01/12/18 15:34 09:51 / Sodium Chloride IV 0 mcg/min .[id number] PRN 0 mls/hr TITRATE PER MD ORDER Titration Protocol 4 MCG/MIN Propofol 1,000 mg in 100 mls @ 2.776 mls/hr 01/12/18 19:21 01/15/18 14:20 Diprivan IV 35 mcg/kg/min .Q24H PRN 19.432 mls/hr Agitation Administration Protocol 5 MCG/KG/MIN Heparin Sodium/Sodium Chloride 25,000 units in 250 mls @ 16.248 mls/hr 16:00 01/15/18 02:56 Heparin 43263 Units/250ml 1/2 Normal Saline IV 13 units/kg/hr .[id number] PRN 11.734 mls/hr PROTOCOL Administration Protocol 18 UNITS/KG/HR Meropenem 1 gm/ Sodium 100 mls @ 100 mls/hr 01/15/18 00:00 01/15/18 15:18 Chloride IVPB 100 mls/hr Q8H [facility] Administration Protocol Insulin Aspart 0 unit 01/15/18 12:00 01/15/18 12:19 Novolog SC Not Given Q6H [facility] Protocol - Patient Studies Lab Studies: Microbiology Studies 01/12/18 12:53 Blood Culture - Final Blood Proteus Mirabilis Gram Stain - Final 01/12/18 12:50 Blood Culture - Final Blood Proteus Mirabilis Gram Stain - Final 01/13/18 15:13 Gram Stain - Final Trachasp Sputum Culture - Final Pseudomonas Aeruginosa 01/13/18 05:55 Gram Stain - Final Sputum Sputum Culture - Final Pseudomonas Aeruginosa 01/14/18 10:48 Blood Culture - Preliminary Blood-Thru Central Line NO GROWTH AFTER 24 HOURS 01/14/18 10:48 Blood Culture - Preliminary Blood-Thru Central Line NO GROWTH AFTER 24 HOURS 01/14/18 10:48 Urine Culture - Preliminary Urine,Clean Catch Gram Negative Cuong Gram Positive Cocci Lab Studies 01/15/18 01/15/18 01/15/18 Range/Units 11:32 06:23 06:23 WBC (4.8-10.8) K/uL RBC (4.40-5.90) Mil/uL Hgb (12.0-18.0) g/dL Hct (35.0-51.0) % MCV (80.0-94.0) fL MCH (27.0-31.0) pg MCHC (33.0-37.0) g/dL RDW (11.5-14.5) % Plt Count (130-400) K/uL MPV (7.2-11.7) fL Neut % (Auto) (50.0-75.0) % Lymph % (Auto) (20.0-40.0) % [place] % (Auto) (0.0-10.0) % Eos % (Auto) (0.0-4.0) % Baso % (Auto) (0.0-2.0) % Neut # (Auto) (1.8-7.0) K/uL Lymph # (Auto) (1.0-4.3) K/uL [place] # (Auto) (0.0-0.8) K/uL Eos # (Auto) (0.0-0.7) K/uL Baso # (Auto) (0.0-0.2) K/uL Neutrophils % (Manual) (50-75) % Band Neutrophils % (0-2) % Lymphocytes % (Manual) (20-40) % Monocytes % (Manual) (0-10) % Eosinophils % (Manual) (0-4) % Platelet Estimate (NORMAL) Polychromasia Hypochromasia (manual) Anisocytosis (manual) Target Cells APTT 68 H D (21-34) SECONDS Puncture Site pCO2 (35-45) mm/Hg pO2 (80-100) mm/Hg HCO3 (21-28) mmol/L ABG pH (7.35-7.45) ABG Total CO2 (22-28) mmol/L ABG O2 Saturation (95-98) % ABG Base Excess (-2.0-3.0) mmol/L ABG Hemoglobin (11.7-17.4) g/dL ABG Carboxyhemoglobin (0.5-1.5) % POC ABG HHb (Measured) (0.0-5.0) % ABG Methemoglobin (0.0-3.0) % Aníbal Test A-a O2 Difference mm/Hg Respiratory Index Hgb O2 Saturation (95.0-98.0) % Vent Mode Mechanical Rate FiO2 % Tidal Volume PEEP Sodium 145 (132-148) mmol/L Potassium 3.6 (3.6-5.2) mmol/L Chloride 110 H (98-107) mmol/L Carbon Dioxide 30 (22-30) mmol/L Anion Gap 9 L (10-20) BUN 22 H (9-20) mg/dL Creatinine 0.9 (0.8-1.5) mg/dL Est GFR ( Amer) > 60 Est GFR (Non-Af Amer) > 60 POC Glucose (mg/dL) 141 H (65-110) mg/dL Random Glucose 149 H (75-110) mg/dL Calcium 7.3 L (8.6-10.4) mg/dl Phosphorus 1.8 L (2.5-4.5) mg/dL Magnesium 2.0 (1.6-2.3) mg/dL Total Bilirubin 0.3 (0.2-1.3) mg/dL AST 26 (17-59) U/L ALT 25 (21-72) U/L Alkaline Phosphatase 128 H (38-126) U/L Total Protein 5.5 L (6.3-8.3) g/dL Albumin 2.6 L (3.5-5.0) g/dL Globulin 2.9 (2.2-3.9) gm/dL Albumin/Globulin Ratio 0.9 L (1.0-2.1) 01/15/18 01/15/18 01/14/18 Range/Units 06:23 05:25 18:15 WBC 18.2 H (4.8-10.8) K/uL RBC 3.84 L (4.40-5.90) Mil/uL Hgb 9.8 L (12.0-18.0) g/dL Hct 31.5 L (35.0-51.0) % MCV 82.0 (80.0-94.0) fL MCH 25.5 L (27.0-31.0) pg MCHC 31.1 L (33.0-37.0) g/dL RDW 17.5 H (11.5-14.5) % Plt Count 180 (130-400) K/uL MPV 7.5 (7.2-11.7) fL Neut % (Auto) 83.3 H (50.0-75.0) % Lymph % (Auto) 7.6 L (20.0-40.0) % [place] % (Auto) 6.9 (0.0-10.0) % Eos % (Auto) 2.1 (0.0-4.0) % Baso % (Auto) 0.1 (0.0-2.0) % Neut # (Auto) 15.2 H (1.8-7.0) K/uL Lymph # (Auto) 1.4 (1.0-4.3) K/uL [place] # (Auto) 1.3 H (0.0-0.8) K/uL Eos # (Auto) 0.4 (0.0-0.7) K/uL Baso # (Auto) 0.0 (0.0-0.2) K/uL Neutrophils % (Manual) 58 (50-75) % Band Neutrophils % 31 H* (0-2) % Lymphocytes % (Manual) 5 L (20-40) % Monocytes % (Manual) 5 (0-10) % Eosinophils % (Manual) 1 (0-4) % Platelet Estimate Normal (NORMAL) Polychromasia Slight Hypochromasia (manual) Slight Anisocytosis (manual) Slight Target Cells Slight APTT 75 H D (21-34) SECONDS Puncture Site Lra pCO2 44 (35-45) mm/Hg pO2 113 H (80-100) mm/Hg HCO3 27.1 (21-28) mmol/L ABG pH 7.41 (7.35-7.45) ABG Total CO2 29.3 H (22-28) mmol/L ABG O2 Saturation 98.6 H (95-98) % ABG Base Excess 2.8 (-2.0-3.0) mmol/L ABG Hemoglobin 10.4 L (11.7-17.4) g/dL ABG Carboxyhemoglobin 1.2 (0.5-1.5) % POC ABG HHb (Measured) 1.4 (0.0-5.0) % ABG Methemoglobin 1.5 (0.0-3.0) % Aníbal Test Yes A-a O2 Difference 117.0 mm/Hg Respiratory Index 1.0 Hgb O2 Saturation 95.9 (95.0-98.0) % Vent Mode Prvc Mechanical Rate 16 FiO2 40.0 % Tidal Volume 500 PEEP 5 Sodium (132-148) mmol/L Potassium (3.6-5.2) mmol/L Chloride (98-107) mmol/L Carbon Dioxide (22-30) mmol/L Anion Gap (10-20) BUN (9-20) mg/dL Creatinine (0.8-1.5) mg/dL Est GFR ( Amer) Est GFR (Non-Af Amer) POC Glucose (mg/dL) (65-110) mg/dL Random Glucose (75-110) mg/dL Calcium (8.6-10.4) mg/dl Phosphorus (2.5-4.5) mg/dL Magnesium (1.6-2.3) mg/dL Total Bilirubin (0.2-1.3) mg/dL AST (17-59) U/L ALT (21-72) U/L Alkaline Phosphatase (38-126) U/L Total Protein (6.3-8.3) g/dL Albumin (3.5-5.0) g/dL Globulin (2.2-3.9) gm/dL Albumin/Globulin Ratio (1.0-2.1) Laboratory Results - last 24 hr 01/14/18 01/15/18 01/15/18 18:15 05:25 06:23 WBC 18.2 H RBC 3.84 L Hgb 9.8 L Hct 31.5 L MCV 82.0 MCH 25.5 L MCHC 31.1 L RDW 17.5 H Plt Count 180 MPV 7.5 Neut % (Auto) 83.3 H Lymph % (Auto) 7.6 L [place] % (Auto) 6.9 Eos % (Auto) 2.1 Baso % (Auto) 0.1 Neut # (Auto) 15.2 H Lymph # (Auto) 1.4 [place] # (Auto) 1.3 H Eos # (Auto) 0.4 Baso # (Auto) 0.0 Neutrophils % (Manual) 58 Band Neutrophils % 31 H* Lymphocytes % (Manual) 5 L Monocytes % (Manual) 5 Eosinophils % (Manual) 1 Platelet Estimate Normal Polychromasia Slight Hypochromasia (manual) Slight Anisocytosis (manual) Slight Target Cells Slight APTT 75 H D Puncture Site Lra pCO2 44 pO2 113 H HCO3 27.1 ABG pH 7.41 ABG Total CO2 29.3 H ABG O2 Saturation 98.6 H ABG Base Excess 2.8 ABG Hemoglobin 10.4 L ABG Carboxyhemoglobin 1.2 POC ABG HHb (Measured) 1.4 ABG Methemoglobin 1.5 Aníbal Test Yes A-a O2 Difference 117.0 Respiratory Index 1.0 Hgb O2 Saturation 95.9 Vent Mode Prvc Mechanical Rate 16 FiO2 40.0 Tidal Volume 500 PEEP 5 Sodium Potassium Chloride Carbon Dioxide Anion Gap BUN Creatinine Est GFR ( Amer) Est GFR (Non-Af Amer) POC Glucose (mg/dL) Random Glucose Calcium Phosphorus Magnesium Total Bilirubin AST ALT Alkaline Phosphatase Total Protein Albumin Globulin Albumin/Globulin Ratio 01/15/18 01/15/18 01/15/18 06:23 06:23 11:32 WBC RBC Hgb Hct MCV MCH MCHC RDW Plt Count MPV Neut % (Auto) Lymph % (Auto) [place] % (Auto) Eos % (Auto) Baso % (Auto) Neut # (Auto) Lymph # (Auto) [place] # (Auto) Eos # (Auto) Baso # (Auto) Neutrophils % (Manual) Band Neutrophils % Lymphocytes % (Manual) Monocytes % (Manual) Eosinophils % (Manual) Platelet Estimate Polychromasia Hypochromasia (manual) Anisocytosis (manual) Target Cells APTT 68 H D Puncture Site pCO2 pO2 HCO3 ABG pH ABG Total CO2 ABG O2 Saturation ABG Base Excess ABG Hemoglobin ABG Carboxyhemoglobin POC ABG HHb (Measured) ABG Methemoglobin Aníbal Test A-a O2 Difference Respiratory Index Hgb O2 Saturation Vent Mode Mechanical Rate FiO2 Tidal Volume PEEP Sodium 145 Potassium 3.6 Chloride 110 H Carbon Dioxide 30 Anion Gap 9 L BUN 22 H Creatinine 0.9 Est GFR ( Amer) > 60 Est GFR (Non-Af Amer) > 60 POC Glucose (mg/dL) 141 H Random Glucose 149 H Calcium 7.3 L Phosphorus 1.8 L Magnesium 2.0 Total Bilirubin 0.3 AST 26 ALT 25 Alkaline Phosphatase 128 H Total Protein 5.5 L Albumin 2.6 L Globulin 2.9 Albumin/Globulin Ratio 0.9 L Assessment/Plan - Assessment and Plan (Free Text) Plan: Patient seen and examined at bedside. Patient with h/o hypoxic respiratory failure. Clinically patient as b/l LE edema and fluid overloaded -Hypoxic respiratory failure: 2nd fluid overload, d/c IVF, start gently diuresis -Continue ventialtion to keep spo2 >92 and pH b/w 7.35-7.45 -continue ng tube feeds -contineu ABx, f/u cultures daily CPAP: patient toelrated CPap today for more than 4 hours. cc time 35 minutes d/w ICU team - Date & Time Date: 01/15/18 Time: 18:15
--- NOTE | 2018-01-15 11:16 | VASCLAB ---
Date of service: 01/14/2018 PROCEDURE: Right Lower Extremity Venous Duplex Exam. HISTORY: r/o DVT PRIORS: None. TECHNIQUE: Right common femoral, femoral, popliteal and posterior tibial, peroneal and great saphenous veins were evaluated. Flow was assessed with color Doppler, compressibility, assessment of phasic flow and augmentation response. Report prepared by EDGAR Loving, RVT FINDINGS: RIGHT: 1. Common Femoral Vein: 1.1. Compressibility - Fully compressible: Thrombus - None: Flow - Phasic: Augmentation -Normal: Reflux - None. 2. Femoral Vein: 2.1. Compressibility - Fully compressible: Thrombus - None: Flow - Phasic: Augmentation -Normal: Reflux - None. 3. Popliteal Vein: 3.1. Compressibility - Fully compressible: Thrombus - None: Flow - Phasic: Augmentation -Normal: Reflux - None. 4. Posterior Tibial Vein: 4.1. Compressibility - Fully compressible: Thrombus - None: Flow - Phasic: Augmentation -Normal: Reflux - None. 5. Peroneal Vein: 5.1. Compressibility - Fully compressible: Thrombus - None: Flow - Phasic: Augmentation -Normal: Reflux - None. 6. Great Saphenous Vein: 6.1. Compressibility - Fully compressible: Thrombus -None: Flow - Phasic: Augmentation - Normal: Reflux - None. OTHER FINDINGS: IMPRESSION: No evidence of deep or superficial vein thrombosis of the right lower extremity with excellent venous flow. Normal valve function noted of the right side. Normal venous flow noted in the left common femoral vein.
--- NOTE | 2018-01-15 11:20 | VASCLAB ---
Date of service: 01/13/2018 PROCEDURE: Left Lower Extremity Venous Duplex Exam. HISTORY: Left lower extremity edema PRIORS: None. TECHNIQUE: Left common femoral, femoral, popliteal and posterior tibial, peroneal and great saphenous veins were evaluated. Flow was assessed with color Doppler, compressibility, assessment of phasic flow and augmentation response. Report prepared by TANYA Ocampo FINDINGS: LEFT: 1. Common Femoral Vein: 1.1. Compressibility - Fully compressible: Thrombus - None : Flow - Phasic: Augmentation -Normal: Reflux - None. 2. Femoral Vein: 2.1. Compressibility - Fully compressible: Thrombus - None: Flow - Phasic: Augmentation -Normal: Reflux - None. 3. Popliteal Vein: 3.1. Compressibility - Fully compressible: Thrombus - None: Flow - Phasic: Augmentation -Normal: Reflux - None. 4. Posterior Tibial Vein: 4.1. Compressibility - Fully compressible: Thrombus - None: Flow - Phasic: Augmentation -Normal: Reflux - None. 5. Peroneal Vein: 5.1. Compressibility - Fully compressible: Thrombus - None: Flow - Phasic: Augmentation -Normal: Reflux - None. 6. Great Saphenous Vein: 6.1. Compressibility - Fully compressible: Thrombus - None: Flow - Phasic: Augmentation - Normal: Reflux - None. OTHER FINDINGS: Technically difficult exam, due to limited patient positioning. IMPRESSION: No evidence of deep or superficial vein thrombosis of the left lower extremity with excellent venous flow. Normal valve function noted of the left side.
[2018-01-15] MEDS: Albuterol-Ipratrop 3 mg / 0.5 (3 ml) UD INH SCH ×3 (11:39→21:03)
--- NOTE | 2018-01-15 12:09 | CP.PCM.PN ---
Subjective - Date & Time of Evaluation Date of Evaluation: 01/15/18 Time of Evaluation: 13:00 - Subjective Subjective: patient seen and examined On ventilator support FiO2 reduced to 40% Off amiodarone drip Afebrile Sedated on propofol drip Objective - Vital Signs/Intake and Output Vital Signs (last 24 hours): Temp Pulse Resp BP Pulse Ox 97.1 F L 71 24 99/55 L 97 01/15/18 08:00 01/15/18 11:05 01/15/18 11:05 01/15/18 11:05 01/15/18 11:05 Intake and Output: 01/15/18 01/15/18 06:59 18:59 Intake Total 2471.7 995.0 Output Total 780 500 Balance 1691.7 495.0 - Medications Medications: Current Medications Albuterol/Ipratropium (Duoneb 3 Mg/0.5 Mg (3 Ml) Ud) 3 ml INH RQ4 [facility] Last Admin: 01/15/18 11:39 Dose: 3 ml Amiodarone HCl (Cordarone) 400 mg PO Q8H [facility] Last Admin: 01/15/18 09:55 Dose: 400 mg Famotidine (Pepcid) 20 mg IVP DAILY [facility] Last Admin: 01/15/18 09:54 Dose: 20 mg Heparin Sodium (Porcine) (Heparin) 5,000 units SC Q8 [facility] Last Admin: 01/13/18 14:42 Dose: Not Given Hydrocortisone Sodium Succinate (Solu-Cortef) 100 mg IV Q8H [facility] Norepinephrine Bitartrate 4 mg (/ Sodium Chloride) 254 mls @ 15.24 mls/hr IV .[id number] PRN; Protocol; 4 MCG/MIN PRN Reason: TITRATE PER MD ORDER Last Titration: 01/15/18 09:51 Dose: 0 mcg/min, 0 mls/hr Propofol (Diprivan) 1,000 mg in 100 mls @ 2.776 mls/hr IV .Q24H PRN; Protocol; 5 MCG/KG/MIN PRN Reason: Agitation Last Admin: 01/15/18 09:52 Dose: 35 mcg/kg/min, 19.432 mls/hr Heparin Sodium/Sodium Chloride (Heparin 66394 Units/250ml 1/2 Normal Saline) 25 ,000 units in 250 mls @ 16.248 mls/hr IV .[id number] PRN; Protocol; 18 UNITS/KG/HR PRN Reason: PROTOCOL Last Admin: 01/15/18 02:56 Dose: 13 units/kg/hr, 11.734 mls/hr Meropenem 1 gm/ Sodium (Chloride) 100 mls @ 100 mls/hr IVPB Q8H [facility]JO PRN Reason: Protocol Last Admin: 01/15/18 08:00 Dose: 100 mls/hr Potassium Phosphate 15 mmole/ (Dextrose) 255 mls @ 42.5 mls/hr IVPB ONCE ONE Stop: 01/15/18 15:59 Last Admin: 01/15/18 09:53 Dose: 42.5 mls/hr Insulin Aspart (Novolog) 0 unit SC Q6H [facility]JO PRN Reason: Protocol - Labs Labs: 01/15/18 06:23 01/15/18 06:23 PT 15.7 SECONDS (9.7-12.2) H 01/13/18 15:13 INR 1.4 01/13/18 15:13 APTT 68 SECONDS (21-34) H D 01/15/18 06:23 - Head Exam Head Exam: ATRAUMATIC, NORMOCEPHALIC - ENT Exam ENT Exam: Mucous Membranes Moist - Neck Exam Neck Exam: Normal Inspection - Respiratory Exam Respiratory Exam: Decreased Breath Sounds - Cardiovascular Exam Cardiovascular Exam: REGULAR RHYTHM - GI/Abdominal Exam GI & Abdominal Exam: Soft - Extremities Exam Extremities Exam: Pedal Edema - Neurological Exam Neurological Exam: Altered Assessment and Plan (1) Acute respiratory failure with hypoxemia Assessment & Plan: wean as tolerated FiO2 reduced to 40% Continue antibiotics Continue nebulizer treatment P.o. amiodarone Cardiology workup Status: Acute (2) Atrial fibrillation with rapid ventricular response Status: Acute (3) SVT (supraventricular tachycardia) Status: Acute (4) UTI (urinary tract infection) Status: Acute (5) COPD (chronic obstructive pulmonary disease) Status: Acute
[2018-01-15] MEDS: (Novolog) Insulin Aspart, Recombinant 100 u/ml 10 ml vial SC SCH ×2 (12:19→18:18)
[2018-01-15] MEDS ORDERED: Ipratropium 0.02% Inhal Soln (0.5 mg/2.5 ml) UD IH SCH (14:00)
--- NOTE | 2018-01-15 16:48 | CP.PCM.PN ---
Subjective - Date & Time of Evaluation Date of Evaluation: 01/15/18 Time of Evaluation: 08:00 - Subjective Subjective: admitted to ICU with gram neg sepsis UTI likely source remains intubated / sedated On ventilator support FiO2 reduced to 40% Off amiodarone drip Afebrile Sedated on propofol drip growing proteus in blood and pseudomonas in urine Objective - Vital Signs/Intake and Output Vital Signs (last 24 hours): Temp Pulse Resp BP Pulse Ox 6 F L 63 22 110/69 96 01/15/18 16:00 01/15/18 16:00 01/15/18 16:00 01/15/18 15:32 01/15/18 16:00 Intake and Output: 01/15/18 01/15/18 06:59 18:59 Intake Total 2471.7 1797.5 Output Total 780 720 Balance 1691.7 1077.5 - Medications Medications: Current Medications Albuterol/Ipratropium (Duoneb 3 Mg/0.5 Mg (3 Ml) Ud) 3 ml INH RQ4 [facility] Last Admin: 01/15/18 11:39 Dose: 3 ml Amiodarone HCl (Cordarone) 400 mg PO Q8H [facility] Last Admin: 01/15/18 09:55 Dose: 400 mg Famotidine (Pepcid) 20 mg IVP DAILY [facility] Last Admin: 01/15/18 09:54 Dose: 20 mg Heparin Sodium (Porcine) (Heparin) 5,000 units SC Q8 [facility]JO Last Admin: 01/13/18 14:42 Dose: Not Given Hydrocortisone Sodium Succinate (Solu-Cortef) 100 mg IV Q8H [facility] Norepinephrine Bitartrate 4 mg (/ Sodium Chloride) 254 mls @ 15.24 mls/hr IV .[id number] PRN; Protocol; 4 MCG/MIN PRN Reason: TITRATE PER MD ORDER Last Titration: 01/15/18 09:51 Dose: 0 mcg/min, 0 mls/hr Propofol (Diprivan) 1,000 mg in 100 mls @ 2.776 mls/hr IV .Q24H PRN; Protocol; 5 MCG/KG/MIN PRN Reason: Agitation Last Admin: 01/15/18 14:20 Dose: 35 mcg/kg/min, 19.432 mls/hr Heparin Sodium/Sodium Chloride (Heparin 37548 Units/250ml 1/2 Normal Saline) 25 ,000 units in 250 mls @ 16.248 mls/hr IV .[id number] PRN; Protocol; 18 UNITS/KG/HR PRN Reason: PROTOCOL Last Admin: 01/15/18 02:56 Dose: 13 units/kg/hr, 11.734 mls/hr Meropenem 1 gm/ Sodium (Chloride) 100 mls @ 100 mls/hr IVPB Q8H [facility]JO PRN Reason: Protocol Last Admin: 01/15/18 15:18 Dose: 100 mls/hr Insulin Aspart (Novolog) 0 unit SC Q6H [facility]JO PRN Reason: Protocol Last Admin: 01/15/18 12:19 Dose: Not Given - Labs Labs: 01/15/18 06:23 01/15/18 06:23 PT 15.7 SECONDS (9.7-12.2) H 01/13/18 15:13 INR 1.4 01/13/18 15:13 APTT 68 SECONDS (21-34) H D 01/15/18 06:23 - Constitutional Appears: Cachectic, Chronically Ill - Head Exam Head Exam: NORMOCEPHALIC - Eye Exam Eye Exam: absent: PERRL - ENT Exam ENT Exam: Normal External Ear Exam - Neck Exam Neck Exam: absent: Lymphadenopathy - Respiratory Exam Respiratory Exam: Decreased Breath Sounds - Cardiovascular Exam Cardiovascular Exam: REGULAR RHYTHM - GI/Abdominal Exam GI & Abdominal Exam: Distended, Soft - Rectal Exam Rectal Exam: Deferred - Exam Exam: NORMAL INSPECTION - Extremities Exam Extremities Exam: absent: Pedal Edema - Back Exam Back Exam: absent: CVA tenderness (L), CVA tenderness (R) - Neurological Exam Neurological Exam: Altered Assessment and Plan (1) Atrial fibrillation with rapid ventricular response Status: Acute (2) Mental status alteration Status: Acute (3) Sepsis Status: Acute (4) UTI (urinary tract infection) Status: Acute (5) BPH (benign prostatic hyperplasia) Status: Acute (6) Congestive heart failure (CHF) Status: Acute - Assessment and Plan (Free Text) Assessment: admitted to ICU with gram neg sepsis UTI likely source remains intubated / sedated growing proteus in blood and pseudomonas in urine cont iv antibiotics
--- NOTE | 2018-01-15 17:00 | CP.PCM.PN ---
<Ilene Valencia - Last Filed: 01/15/18 17:05> Subjective - Date & Time of Evaluation Date of Evaluation: 01/15/18 Time of Evaluation: 14:32 - Subjective Subjective: Cardiology progress note - Dr. Blanco's service Patient was seen and examined at bedside . Patient remains intubated and sedated . Not able to obtain ROS or HPI due to current status. Objective - Vital Signs/Intake and Output Vital Signs (last 24 hours): Temp Pulse Resp BP Pulse Ox 6 F L 63 22 110/69 96 01/15/18 16:00 01/15/18 16:00 01/15/18 16:00 01/15/18 15:32 01/15/18 16:00 Intake and Output: 01/15/18 01/15/18 06:59 18:59 Intake Total 2471.7 1797.5 Output Total 780 720 Balance 1691.7 1077.5 - Medications Medications: Current Medications Albuterol/Ipratropium (Duoneb 3 Mg/0.5 Mg (3 Ml) Ud) 3 ml INH RQ4 [facility] Last Admin: 01/15/18 11:39 Dose: 3 ml Amiodarone HCl (Cordarone) 400 mg PO Q8H [facility] Last Admin: 01/15/18 09:55 Dose: 400 mg Famotidine (Pepcid) 20 mg IVP DAILY [facility] Last Admin: 01/15/18 09:54 Dose: 20 mg Heparin Sodium (Porcine) (Heparin) 5,000 units SC Q8 [facility] Last Admin: 01/13/18 14:42 Dose: Not Given Hydrocortisone Sodium Succinate (Solu-Cortef) 100 mg IV Q8H [facility] Norepinephrine Bitartrate 4 mg (/ Sodium Chloride) 254 mls @ 15.24 mls/hr IV .[id number] PRN; Protocol; 4 MCG/MIN PRN Reason: TITRATE PER MD ORDER Last Titration: 01/15/18 09:51 Dose: 0 mcg/min, 0 mls/hr Propofol (Diprivan) 1,000 mg in 100 mls @ 2.776 mls/hr IV .Q24H PRN; Protocol; 5 MCG/KG/MIN PRN Reason: Agitation Last Admin: 01/15/18 14:20 Dose: 35 mcg/kg/min, 19.432 mls/hr Heparin Sodium/Sodium Chloride (Heparin 55017 Units/250ml 1/2 Normal Saline) 25 ,000 units in 250 mls @ 16.248 mls/hr IV .[id number] PRN; Protocol; 18 UNITS/KG/HR PRN Reason: PROTOCOL Last Admin: 01/15/18 02:56 Dose: 13 units/kg/hr, 11.734 mls/hr Meropenem 1 gm/ Sodium (Chloride) 100 mls @ 100 mls/hr IVPB Q8H [facility]JO PRN Reason: Protocol Last Admin: 01/15/18 15:18 Dose: 100 mls/hr Insulin Aspart (Novolog) 0 unit SC Q6H [facility] PRN Reason: Protocol Last Admin: 01/15/18 12:19 Dose: Not Given - Labs Labs: 01/15/18 06:23 01/15/18 06:23 PT 15.7 SECONDS (9.7-12.2) H 01/13/18 15:13 INR 1.4 01/13/18 15:13 APTT 68 SECONDS (21-34) H D 01/15/18 06:23 - Constitutional Appears: Non-toxic, No Acute Distress, Other (sedated) - ENT Exam ENT Exam: Mucous Membranes Moist - Respiratory Exam Respiratory Exam: NORMAL BREATHING PATTERN - Cardiovascular Exam Cardiovascular Exam: +S1, +S2. absent: JVD - Extremities Exam Extremities Exam: Pedal Edema (2+) - Neurological Exam Neurological Exam: Altered (sedated) - Skin Skin Exam: Normal Color, Warm Assessment and Plan - Assessment and Plan (Free Text) Assessment: Atrial fibrillation with rapid ventricular response Assessment & Plan: Lopressor 2.5 IV Q6H Amiodarone 900mg IV q24h ---> Switched to 400mg PO Q8H Echocardiogram: Suboptimal study. Please refer to the EMR for complete impression Status: Acute SVT (supraventricular tachycardia) Assessment & Plan: Cardioversion > X2 Amiodarone 900mg IV q24h ---> Switched to 400mg PO Q8H Status: Acute D-dimer, elevated Assessment & Plan: D-dimer : [address]: Not completed due to patient's condition Heparin drip initiated Status: Acute UTI Assessment & Plan: Sepsis on admission UA/UC positive for UTI On: Aztreonam 1gm IV Q8H Meropenem 1gm IV Q12H Monitor Status: Acute Prophylactic measure Assessment & Plan: DVT: Heparin drip GI: Pepcid 20mg IV daily Status: Acute <Aaron Blanco - Last Filed: 01/15/18 22:20> Objective - Vital Signs/Intake and Output Vital Signs (last 24 hours): Temp Pulse Resp BP Pulse Ox 97.6 F 69 26 H 103/56 L 99 01/15/18 20:00 01/15/18 22:07 01/15/18 22:07 01/15/18 22:07 01/15/18 22:07 Intake and Output: 01/15/18 01/16/18 18:59 06:59 Intake Total 1979.5 308.0 Output Total 720 425 Balance 1259.5 -117.0 - Medications Medications: Current Medications Albuterol/Ipratropium (Duoneb 3 Mg/0.5 Mg (3 Ml) Ud) 3 ml INH RQ4 [facility] Last Admin: 01/15/18 21:03 Dose: 3 ml Amiodarone HCl (Cordarone) 400 mg PO Q8H [facility] Last Admin: 01/15/18 18:02 Dose: 400 mg Famotidine (Pepcid) 20 mg IVP DAILY [facility] Last Admin: 01/15/18 09:54 Dose: 20 mg Heparin Sodium (Porcine) (Heparin) 5,000 units SC Q8 [facility]JO Last Admin: 01/13/18 14:42 Dose: Not Given Hydrocortisone Sodium Succinate (Solu-Cortef) 100 mg IV Q8H [facility] Last Admin: 01/15/18 17:50 Dose: 100 mg Norepinephrine Bitartrate 4 mg (/ Sodium Chloride) 254 mls @ 15.24 mls/hr IV .[id number] PRN; Protocol; 4 MCG/MIN PRN Reason: TITRATE PER MD ORDER Last Titration: 01/15/18 09:51 Dose: 0 mcg/min, 0 mls/hr Propofol (Diprivan) 1,000 mg in 100 mls @ 2.776 mls/hr IV .Q24H PRN; Protocol; 5 MCG/KG/MIN PRN Reason: Agitation Last Admin: 01/15/18 19:07 Dose: 35 mcg/kg/min, 19.432 mls/hr Heparin Sodium/Sodium Chloride (Heparin 44507 Units/250ml 1/2 Normal Saline) 25 ,000 units in 250 mls @ 16.248 mls/hr IV .[id number] PRN; Protocol; 18 UNITS/KG/HR PRN Reason: PROTOCOL Last Admin: 01/15/18 02:56 Dose: 13 units/kg/hr, 11.734 mls/hr Meropenem 1 gm/ Sodium (Chloride) 100 mls @ 100 mls/hr IVPB Q8H [facility]JO PRN Reason: Protocol Last Admin: 01/15/18 15:18 Dose: 100 mls/hr Insulin Aspart (Novolog) 0 unit SC Q6H [facility]JO PRN Reason: Protocol Last Admin: 01/15/18 18:18 Dose: 2 u - Labs Labs: 01/15/18 06:23 01/15/18 06:23 PT 15.7 SECONDS (9.7-12.2) H 01/13/18 15:13 INR 1.4 01/13/18 15:13 APTT 68 SECONDS (21-34) H D 01/15/18 06:23 Assessment and Plan - Assessment and Plan (Free Text) Assessment: Patient seen and evaluated personally by me. Plan of care d/w the resident and as documented
[2018-01-16] MEDS: (Novolog) Insulin Aspart, Recombinant 100 u/ml 10 ml vial SC SCH ×4 (00:31→18:22)
[2018-01-16] MEDS: Heparin25000 units/250ml 1/2NS 25,000 UNITS/250 ML BAG IV PRN (00:37)
[2018-01-16] MEDS: Albuterol-Ipratrop 3 mg / 0.5 (3 ml) UD INH SCH ×5 (00:56→20:01)
[2018-01-16] MEDS: Propofol 10 mg/ml 1,000 MG/100 ML VIAL IV PRN ×5 (03:07→21:08)
[2018-01-16 05:52] LABS: ARTERIAL BLOOD GAS HCO3 25.5 mmol/L (21-28); ARTERIAL BLOOD GAS O2 SAT 96.7 % (95-98); ARTERIAL BLOOD GAS PCO2 49 mm/Hg (35-45); ARTERIAL BLOOD GAS PH 7.35 (7.35-7.45); ARTERIAL BLOOD GAS PO2 73 mm/Hg (80-100); ARTERIAL BLOOD GAS TCO2 28.6 mmol/L (22-28)
[2018-01-16 06:21] LABS: BASO % 0.2 % (0.0-2.0); HEMOGLOBIN 9.7 g/dL (12.0-18.0); LYMPH % 5.4 % (20.0-40.0); MEAN CORPUSCULAR HEMOGLOBIN 25.6 pg (27.0-31.0); MEAN CORPUSCULAR HGB CONC 31.3 g/dL (33.0-37.0); MEAN PLATELET VOLUME 7.7 fL (7.2-11.7); MONO # 0.9 K/uL (0.0-0.8); MONO % 4.7 % (0.0-10.0); NEUT # 16.9 K/uL (1.8-7.0); NEUT % 89.7 % (50.0-75.0); NRBC % 0.2 % (0.0-2.0); PLATELET COUNT 176 K/uL (130-400); RBC 3.79 Mil/uL (4.40-5.90); RED CELL DISTRIBUTION WIDTH 17.7 % (11.5-14.5); WHITE BLOOD COUNT 18.8 K/uL (4.8-10.8)
[2018-01-16 06:40] LABS: ALB/GLOB RATIO 0.8 (1.0-2.1); ALBUMIN 2.6 g/dL (3.5-5.0); ALT/SGPT 33 U/L (21-72); AST/SGOT 49 U/L (17-59); BLOOD UREA NITROGEN 19 mg/dL (9-20); CALCIUM 7.5 mg/dl (8.6-10.4); GFR NON-AFRICAN AMERICAN > 60
[2018-01-16] MEDS: Meropenem 1 GM in Sodium Chloride 0.9% 100 ML IVPB SCH ×3 (07:48→23:15)
[2018-01-16 08:58] LABS: BANDS 12 % (0-2); LYMPHOCYTE 4 % (20-40); MONOCYTE 5 % (0-10); NEUTROPHIL 78 % (50-75); PLATELET ESTIMATE NORMAL (NORMAL); REACTIVE LYMPHOCYTES 1 % (0-0); TOTAL CELLS COUNTED 100
[2018-01-16 08:59] LABS: ANISOCYTOSIS SLIGHT
[2018-01-16 09:00] LABS: HYPOCHROMIC SLIGHT
[2018-01-16 09:01] LABS: BURR CELLS SLIGHT; POIKILOCYTOSIS SLIGHT; POLYCHROMIC SLIGHT
[2018-01-16 09:02] LABS: TARGET CELLS SLIGHT; TOXIC GRANULATION PRESENT
[2018-01-16 09:03] LABS: SCHISTOCYTES SLIGHT
--- NOTE | 2018-01-16 09:48 | CP.CCUPN ---
CCU Subjective - Physician Review Subjective (Free Text): Patient had no acute events overnight. FiO2 30%, toerating CPAP 01/16/18 09:46 CCU Objective - Vital Signs / Intake & Output Vital Signs (Last 4 hours): Vital Signs Temp Pulse Resp BP Pulse Ox 01/16/18 09:07 67 22 114/62 01/16/18 09:00 67 20 97 01/16/18 08:30 74 19 96 01/16/18 08:07 57 L 15 108/61 100 01/16/18 08:00 97.5 F L 68 30 H 100 01/16/18 07:30 56 L 15 98 01/16/18 07:08 62 16 107/66 97 01/16/18 07:00 62 17 98 01/16/18 06:30 68 14 97 01/16/18 06:08 73 18 114/54 L 94 L 01/16/18 06:00 63 16 97 Intake and Output (Last 8hrs): Intake & Output 01/15/18 01/16/18 01/16/18 22:59 06:59 14:59 Intake Total 928.0 1135.4 436.7 Output Total 685 345 140 Balance 243.0 790.4 296.7 Weight 205 lb 3.2 oz Intake: IV 100 450 100 Intake, IV Amount 448.0 405.4 201.7 LFA #18 93.6 93.6 35.1 Left Wrist 115 135 100 Right Distal Port PICC 154.4 176.8 66.6 Right Proximal Port PICC 85.0 0 0 Oral 100 30 Tube Feeding 280 280 105 Output: Urine 685 345 140 Urethral (Olivares) 685 345 140 Emesis 0 0 0 Other: # Bowel Movements 0 1 0 - Physical Exam Head: Positive for: Atraumatic, Normocephalic Mouth: Positive for: Dry, Other (ETT, OGT in place) Nose (External): Positive for: Atraumatic Respiratory/Chest: Positive for: Decreased Breath Sounds. Negative for: Respiratory Distress (Vented) Cardiovascular: Positive for: Regular Rate and Rhythm, Normal S1, S2 Abdomen: Positive for: Normal Bowel Sounds, Other (Olivares draining brown urine. ) . Negative for: Tenderness Upper Extremity: Positive for: Edema (bilateral edema on upper extremities ), Other (PICC line in place) Lower Extremity: Positive for: Edema (Edema of bilateral lower extremities. Unable to palpate DP pulses on LLE secondary to edema. ), Other (Right lower extremity: Doralis pedis pulse present) Neurological: Positive for: Other (Altered, sedated) Psychiatric: Positive for: Other (Altered) - Medications Active Medications: Active Medications Generic Name Dose Route Start Last Admin Trade Name Freq PRN Reason Stop Dose Admin Albumin Human 25 gm 01/16/18 09:38 Albumin Human 25% (12.5 Gm/50 Ml) IV 01/16/18 09:39 ONCE ONE Albuterol/Ipratropium 3 ml 01/15/18 12:00 01/16/18 07:49 Duoneb 3 Mg/0.5 Mg (3 Ml) Ud INH 3 ml RQ4 [facility] Administration Amiodarone HCl 400 mg 01/15/18 10:00 01/16/18 01:21 Cordarone PO 400 mg Q8H [facility] Administration Famotidine 20 mg 01/13/18 10:00 01/15/18 09:54 Pepcid IVP 20 mg DAILY [facility] Administration Heparin Sodium (Porcine) 5,000 units 01/16/18 14:00 Heparin SC Q8 [facility] Hydrocortisone Sodium Succinate 100 mg 01/15/18 17:00 01/16/18 00:35 Solu-Cortef IV 100 mg Q8H [facility] Administration Propofol 1,000 mg in 100 mls @ 2.776 mls/hr 01/12/18 19:21 01/16/18 07:00 Diprivan IV 40 mcg/kg/min .Q24H PRN 22.208 mls/hr Agitation Administration Protocol 5 MCG/KG/MIN Meropenem 1 gm/ Sodium 100 mls @ 100 mls/hr 01/15/18 00:00 01/16/18 07:48 Chloride IVPB 100 mls/hr Q8H [facility] Administration Protocol Insulin Aspart 0 unit 01/15/18 12:00 01/16/18 05:46 Novolog SC 3 units Q6H [facility] Administration Protocol Metolazone 10 mg 01/16/18 10:00 Zaroxolyn NG 01/16/18 10:01 ONCE ONE - Patient Studies Lab Studies: Microbiology Studies 01/14/18 10:48 Urine Culture - Final Urine,Clean Catch Proteus Mirabilis Enterococcus Faecalis 01/12/18 12:53 Blood Culture - Final Blood Proteus Mirabilis Gram Stain - Final 01/12/18 12:50 Blood Culture - Final Blood Proteus Mirabilis Gram Stain - Final 01/13/18 15:13 Gram Stain - Final Trachasp Sputum Culture - Final Pseudomonas Aeruginosa 01/13/18 05:55 Gram Stain - Final Sputum Sputum Culture - Final Pseudomonas Aeruginosa 01/14/18 10:48 Blood Culture - Preliminary Blood-Thru Central Line NO GROWTH AFTER 24 HOURS 01/14/18 10:48 Blood Culture - Preliminary Blood-Thru Central Line NO GROWTH AFTER 24 HOURS Lab Studies 01/16/18 01/16/18 01/16/18 Range/Units 06:14 06:14 06:14 WBC 18.8 H (4.8-10.8) K/uL RBC 3.79 L (4.40-5.90) Mil/uL Hgb 9.7 L (12.0-18.0) g/dL Hct 31.1 L (35.0-51.0) % MCV 82.0 (80.0-94.0) fL MCH 25.6 L (27.0-31.0) pg MCHC 31.3 L (33.0-37.0) g/dL RDW 17.7 H (11.5-14.5) % Plt Count 176 (130-400) K/uL MPV 7.7 (7.2-11.7) fL Neut % (Auto) 89.7 H (50.0-75.0) % Lymph % (Auto) 5.4 L (20.0-40.0) % [place] % (Auto) 4.7 (0.0-10.0) % Eos % (Auto) 0.0 (0.0-4.0) % Baso % (Auto) 0.2 (0.0-2.0) % Neut # (Auto) 16.9 H (1.8-7.0) K/uL Lymph # (Auto) 1.0 (1.0-4.3) K/uL [place] # (Auto) 0.9 H (0.0-0.8) K/uL Eos # (Auto) 0.0 (0.0-0.7) K/uL Baso # (Auto) 0.0 (0.0-0.2) K/uL Neutrophils % (Manual) 78 H (50-75) % Band Neutrophils % 12 H* (0-2) % Lymphocytes % (Manual) 4 L (20-40) % Reactive Lymphs % 1 H (0-0) % Monocytes % (Manual) 5 (0-10) % Toxic Granulation Present Platelet Estimate Normal (NORMAL) Polychromasia Slight Hypochromasia (manual) Slight Poikilocytosis (manual Slight Anisocytosis (manual) Slight Target Cells Slight Mchenry Cells Slight Schistocytes Slight APTT 92 H D (21-34) SECONDS Puncture Site pCO2 (35-45) mm/Hg pO2 (80-100) mm/Hg HCO3 (21-28) mmol/L ABG pH (7.35-7.45) ABG Total CO2 (22-28) mmol/L ABG O2 Saturation (95-98) % ABG Base Excess (-2.0-3.0) mmol/L Aníbal Test ABG Potassium (3.6-5.2) mmol/L A-a O2 Difference mm/Hg Respiratory Index Sodium 147 (132-148) mmol/l Chloride 109 H (98-107) mmol/L Glucose (75-110) mg/dl Lactate (0.7-2.1) mmol/L Vent Mode Mechanical Rate FiO2 % Tidal Volume PEEP Potassium 3.7 (3.6-5.2) mmol/L Carbon Dioxide 29 (22-30) mmol/L Anion Gap 13 (10-20) BUN 19 (9-20) mg/dL Creatinine 0.8 (0.8-1.5) mg/dL Est GFR ( Amer) > 60 Est GFR (Non-Af Amer) > 60 POC Glucose (mg/dL) (65-110) mg/dL Random Glucose 205 H (75-110) mg/dL Calcium 7.5 L (8.6-10.4) mg/dl Phosphorus 2.8 (2.5-4.5) mg/dL Magnesium 2.0 (1.6-2.3) mg/dL Total Bilirubin 0.4 (0.2-1.3) mg/dL AST 49 (17-59) U/L ALT 33 (21-72) U/L Alkaline Phosphatase 147 H (38-126) U/L Total Protein 5.7 L (6.3-8.3) g/dL Albumin 2.6 L (3.5-5.0) g/dL Globulin 3.2 (2.2-3.9) gm/dL Albumin/Globulin Ratio 0.8 L (1.0-2.1) Arterial Blood Potassium (3.6-5.2) mmol/L 01/16/18 01/16/18 01/15/18 Range/Units 05:40 05:26 23:38 WBC (4.8-10.8) K/uL RBC (4.40-5.90) Mil/uL Hgb (12.0-18.0) g/dL Hct (35.0-51.0) % MCV (80.0-94.0) fL MCH (27.0-31.0) pg MCHC (33.0-37.0) g/dL RDW (11.5-14.5) % Plt Count (130-400) K/uL MPV (7.2-11.7) fL Neut % (Auto) (50.0-75.0) % Lymph % (Auto) (20.0-40.0) % [place] % (Auto) (0.0-10.0) % Eos % (Auto) (0.0-4.0) % Baso % (Auto) (0.0-2.0) % Neut # (Auto) (1.8-7.0) K/uL Lymph # (Auto) (1.0-4.3) K/uL [place] # (Auto) (0.0-0.8) K/uL Eos # (Auto) (0.0-0.7) K/uL Baso # (Auto) (0.0-0.2) K/uL Neutrophils % (Manual) (50-75) % Band Neutrophils % (0-2) % Lymphocytes % (Manual) (20-40) % Reactive Lymphs % (0-0) % Monocytes % (Manual) (0-10) % Toxic Granulation Platelet Estimate (NORMAL) Polychromasia Hypochromasia (manual) Poikilocytosis (manual Anisocytosis (manual) Target Cells Mchenry Cells Schistocytes APTT (21-34) SECONDS Puncture Site Lb pCO2 49 H (35-45) mm/Hg pO2 73 L (80-100) mm/Hg HCO3 25.5 (21-28) mmol/L ABG pH 7.35 (7.35-7.45) ABG Total CO2 28.6 H (22-28) mmol/L ABG O2 Saturation 96.7 (95-98) % ABG Base Excess 0.8 (-2.0-3.0) mmol/L Aníbal Test Na ABG Potassium 3.4 L (3.6-5.2) mmol/L A-a O2 Difference 151.0 mm/Hg Respiratory Index 2.1 Sodium 144.0 (132-148) mmol/l Chloride 113.0 H (98-107) mmol/L Glucose 196 H (75-110) mg/dl Lactate 2.5 H (0.7-2.1) mmol/L Vent Mode Prvc Mechanical Rate 16 FiO2 40.0 % Tidal Volume 440 PEEP 5 Potassium (3.6-5.2) mmol/L Carbon Dioxide (22-30) mmol/L Anion Gap (10-20) BUN (9-20) mg/dL Creatinine (0.8-1.5) mg/dL Est GFR ( Amer) Est GFR (Non-Af Amer) POC Glucose (mg/dL) 231 H 172 H (65-110) mg/dL Random Glucose (75-110) mg/dL Calcium (8.6-10.4) mg/dl Phosphorus (2.5-4.5) mg/dL Magnesium (1.6-2.3) mg/dL Total Bilirubin (0.2-1.3) mg/dL AST (17-59) U/L ALT (21-72) U/L Alkaline Phosphatase (38-126) U/L Total Protein (6.3-8.3) g/dL Albumin (3.5-5.0) g/dL Globulin (2.2-3.9) gm/dL Albumin/Globulin Ratio (1.0-2.1) Arterial Blood Potassium 3.4 L (3.6-5.2) mmol/L 01/15/18 01/15/18 Range/Units 18:16 11:32 WBC (4.8-10.8) K/uL RBC (4.40-5.90) Mil/uL Hgb (12.0-18.0) g/dL Hct (35.0-51.0) % MCV (80.0-94.0) fL MCH (27.0-31.0) pg MCHC (33.0-37.0) g/dL RDW (11.5-14.5) % Plt Count (130-400) K/uL MPV (7.2-11.7) fL Neut % (Auto) (50.0-75.0) % Lymph % (Auto) (20.0-40.0) % [place] % (Auto) (0.0-10.0) % Eos % (Auto) (0.0-4.0) % Baso % (Auto) (0.0-2.0) % Neut # (Auto) (1.8-7.0) K/uL Lymph # (Auto) (1.0-4.3) K/uL [place] # (Auto) (0.0-0.8) K/uL Eos # (Auto) (0.0-0.7) K/uL Baso # (Auto) (0.0-0.2) K/uL Neutrophils % (Manual) (50-75) % Band Neutrophils % (0-2) % Lymphocytes % (Manual) (20-40) % Reactive Lymphs % (0-0) % Monocytes % (Manual) (0-10) % Toxic Granulation Platelet Estimate (NORMAL) Polychromasia Hypochromasia (manual) Poikilocytosis (manual Anisocytosis (manual) Target Cells Lilly Cells Schistocytes APTT (21-34) SECONDS Puncture Site pCO2 (35-45) mm/Hg pO2 (80-100) mm/Hg HCO3 (21-28) mmol/L ABG pH (7.35-7.45) ABG Total CO2 (22-28) mmol/L ABG O2 Saturation (95-98) % ABG Base Excess (-2.0-3.0) mmol/L Aníbal Test ABG Potassium (3.6-5.2) mmol/L A-a O2 Difference mm/Hg Respiratory Index Sodium (132-148) mmol/l Chloride (98-107) mmol/L Glucose (75-110) mg/dl Lactate (0.7-2.1) mmol/L Vent Mode Mechanical Rate FiO2 % Tidal Volume PEEP Potassium (3.6-5.2) mmol/L Carbon Dioxide (22-30) mmol/L Anion Gap (10-20) BUN (9-20) mg/dL Creatinine (0.8-1.5) mg/dL Est GFR ( Amer) Est GFR (Non-Af Amer) POC Glucose (mg/dL) 196 H 141 H (65-110) mg/dL Random Glucose (75-110) mg/dL Calcium (8.6-10.4) mg/dl Phosphorus (2.5-4.5) mg/dL Magnesium (1.6-2.3) mg/dL Total Bilirubin (0.2-1.3) mg/dL AST (17-59) U/L ALT (21-72) U/L Alkaline Phosphatase (38-126) U/L Total Protein (6.3-8.3) g/dL Albumin (3.5-5.0) g/dL Globulin (2.2-3.9) gm/dL Albumin/Globulin Ratio (1.0-2.1) Arterial Blood Potassium (3.6-5.2) mmol/L Laboratory Results - last 24 hr 01/15/18 01/15/18 01/15/18 11:32 18:16 23:38 WBC RBC Hgb Hct MCV MCH MCHC RDW Plt Count MPV Neut % (Auto) Lymph % (Auto) [place] % (Auto) Eos % (Auto) Baso % (Auto) Neut # (Auto) Lymph # (Auto) [place] # (Auto) Eos # (Auto) Baso # (Auto) Neutrophils % (Manual) Band Neutrophils % Lymphocytes % (Manual) Reactive Lymphs % Monocytes % (Manual) Toxic Granulation Platelet Estimate Polychromasia Hypochromasia (manual) Poikilocytosis (manual Anisocytosis (manual) Target Cells Mchenry Cells Schistocytes APTT Puncture Site pCO2 pO2 HCO3 ABG pH ABG Total CO2 ABG O2 Saturation ABG Base Excess Aníbal Test ABG Potassium A-a O2 Difference Respiratory Index Sodium Chloride Glucose Lactate Vent Mode Mechanical Rate FiO2 Tidal Volume PEEP Potassium Carbon Dioxide Anion Gap BUN Creatinine Est GFR ( Amer) Est GFR (Non-Af Amer) POC Glucose (mg/dL) 141 H 196 H 172 H Random Glucose Calcium Phosphorus Magnesium Total Bilirubin AST ALT Alkaline Phosphatase Total Protein Albumin Globulin Albumin/Globulin Ratio Arterial Blood Potassium 01/16/18 01/16/18 01/16/18 05:26 05:40 06:14 WBC 18.8 H RBC 3.79 L Hgb 9.7 L Hct 31.1 L MCV 82.0 MCH 25.6 L MCHC 31.3 L RDW 17.7 H Plt Count 176 MPV 7.7 Neut % (Auto) 89.7 H Lymph % (Auto) 5.4 L [place] % (Auto) 4.7 Eos % (Auto) 0.0 Baso % (Auto) 0.2 Neut # (Auto) 16.9 H Lymph # (Auto) 1.0 [place] # (Auto) 0.9 H Eos # (Auto) 0.0 Baso # (Auto) 0.0 Neutrophils % (Manual) 78 H Band Neutrophils % 12 H* Lymphocytes % (Manual) 4 L Reactive Lymphs % 1 H Monocytes % (Manual) 5 Toxic Granulation Present Platelet Estimate Normal Polychromasia Slight Hypochromasia (manual) Slight Poikilocytosis (manual Slight Anisocytosis (manual) Slight Target Cells Slight Lilly Cells Slight Schistocytes Slight APTT Puncture Site Lb pCO2 49 H pO2 73 L HCO3 25.5 ABG pH 7.35 ABG Total CO2 28.6 H ABG O2 Saturation 96.7 ABG Base Excess 0.8 Aníbal Test Na ABG Potassium 3.4 L A-a O2 Difference 151.0 Respiratory Index 2.1 Sodium 144.0 Chloride 113.0 H Glucose 196 H Lactate 2.5 H Vent Mode Prvc Mechanical Rate 16 FiO2 40.0 Tidal Volume 440 PEEP 5 Potassium Carbon Dioxide Anion Gap BUN Creatinine Est GFR ( Amer) Est GFR (Non-Af Amer) POC Glucose (mg/dL) 231 H Random Glucose Calcium Phosphorus Magnesium Total Bilirubin AST ALT Alkaline Phosphatase Total Protein Albumin Globulin Albumin/Globulin Ratio Arterial Blood Potassium 3.4 L 01/16/18 01/16/18 06:14 06:14 WBC RBC Hgb Hct MCV MCH MCHC RDW Plt Count MPV Neut % (Auto) Lymph % (Auto) [place] % (Auto) Eos % (Auto) Baso % (Auto) Neut # (Auto) Lymph # (Auto) [place] # (Auto) Eos # (Auto) Baso # (Auto) Neutrophils % (Manual) Band Neutrophils % Lymphocytes % (Manual) Reactive Lymphs % Monocytes % (Manual) Toxic Granulation Platelet Estimate Polychromasia Hypochromasia (manual) Poikilocytosis (manual Anisocytosis (manual) Target Cells Lilly Cells Schistocytes APTT 92 H D Puncture Site pCO2 pO2 HCO3 ABG pH ABG Total CO2 ABG O2 Saturation ABG Base Excess Aníbal Test ABG Potassium A-a O2 Difference Respiratory Index Sodium 147 Chloride 109 H Glucose Lactate Vent Mode Mechanical Rate FiO2 Tidal Volume PEEP Potassium 3.7 Carbon Dioxide 29 Anion Gap 13 BUN 19 Creatinine 0.8 Est GFR ( Amer) > 60 Est GFR (Non-Af Amer) > 60 POC Glucose (mg/dL) Random Glucose 205 H Calcium 7.5 L Phosphorus 2.8 Magnesium 2.0 Total Bilirubin 0.4 AST 49 ALT 33 Alkaline Phosphatase 147 H Total Protein 5.7 L Albumin 2.6 L Globulin 3.2 Albumin/Globulin Ratio 0.8 L Arterial Blood Potassium Fingerstick Blood Sugar Results: 231 Assessment/Plan - Assessment and Plan (Free Text) Assessment: Patient seen and examined at bedside. Patient with h/o hypoxic respiratory failure. Clinically patient as b/l LE edema and fluid overloaded -Hypoxic respiratory failure: 2nd fluid overload, d/c IVF, start gently diuresis -Continue ventialtion to keep spo2 >92 and pH b/w 7.35-7.45, continue bronchodilators -continue ng tube feeds -contineu ABx, f/u cultures, d/c GPC coverage daily CPAP: patient toelrated CPap today for more than 4 hours. cc time 32 minutes d/w ICU team
[2018-01-16] MEDS ORDERED: Albumin Human 25% (12.5 gm/50 ml) IV ONE (10:00)
[2018-01-16] MEDS ORDERED: metOLazone 5 MG TAB NG ONE (10:00)
--- NOTE | 2018-01-16 11:51 | RAD ---
Chest x-ray single frontal view History: Intubated. Comparison: 01/15/2018 Findings: Lines and tubes stable position. Worsening now moderate right and small left pleural effusion. Worsening bibasilar airspace opacities. Bilateral hilar prominence. Cardiomegaly. Degenerative changes in the spine and shoulders. Impression: Lines and tubes stable position. Worsening now moderate right and small left pleural effusion. Worsening bibasilar airspace opacities. Bilateral hilar prominence. Cardiomegaly.
--- NOTE | 2018-01-16 19:09 | CP.PCM.PN ---
Subjective - Date & Time of Evaluation Date of Evaluation: 01/16/18 Time of Evaluation: 18:00 - Subjective Subjective: patient seen and examined On ventilatory support FiO2 reduced to 30 percent Tolerated CPAP Afebrile Objective - Vital Signs/Intake and Output Vital Signs (last 24 hours): Temp Pulse Resp BP Pulse Ox 97.0 F L 41 L 16 105/44 L 91 L 01/16/18 16:00 01/16/18 18:08 01/16/18 18:08 01/16/18 18:08 01/16/18 18:08 Intake and Output: 01/16/18 01/17/18 18:59 06:59 Intake Total 1553.2 Output Total 850 Balance 703.2 - Medications Medications: Current Medications Albuterol/Ipratropium (Duoneb 3 Mg/0.5 Mg (3 Ml) Ud) 3 ml INH RQ4 [facility] Last Admin: 01/16/18 16:12 Dose: 3 ml Famotidine (Pepcid) 20 mg IVP DAILY [facility] Last Admin: 01/16/18 09:58 Dose: 20 mg Heparin Sodium (Porcine) (Heparin) 5,000 units SC Q8 [facility] Last Admin: 01/16/18 13:34 Dose: 5,000 units Hydrocortisone Sodium Succinate (Solu-Cortef) 100 mg IV Q8H [facility] Last Admin: 01/16/18 17:04 Dose: 100 mg Propofol (Diprivan) 1,000 mg in 100 mls @ 2.776 mls/hr IV .Q24H PRN; Protocol; 5 MCG/KG/MIN PRN Reason: Agitation Last Admin: 01/16/18 15:58 Dose: 40 mcg/kg/min, 22.208 mls/hr Meropenem 1 gm/ Sodium (Chloride) 100 mls @ 100 mls/hr IVPB Q8H [facility] PRN Reason: Protocol Last Admin: 01/16/18 15:10 Dose: 100 mls/hr Insulin Aspart (Novolog) 0 unit SC Q6H [facility] PRN Reason: Protocol Last Admin: 01/16/18 18:22 Dose: 3 units - Labs Labs: 01/16/18 06:14 01/16/18 06:14 PT 15.7 SECONDS (9.7-12.2) H 01/13/18 15:13 INR 1.4 01/13/18 15:13 APTT 92 SECONDS (21-34) H D 01/16/18 06:14 - Head Exam Head Exam: ATRAUMATIC, NORMOCEPHALIC - ENT Exam ENT Exam: Mucous Membranes Moist - Neck Exam Neck Exam: Normal Inspection - Respiratory Exam Respiratory Exam: Clear to Ausculation Bilateral - Cardiovascular Exam Cardiovascular Exam: REGULAR RHYTHM - GI/Abdominal Exam GI & Abdominal Exam: Soft, Normal Bowel Sounds Assessment and Plan (1) Acute respiratory failure with hypoxemia Assessment & Plan: Continue weaning Diuretics Continue antibiotics On anticoagulation and amiodarone Status: Acute (2) Atrial fibrillation with rapid ventricular response Status: Acute (3) SVT (supraventricular tachycardia) Status: Acute (4) UTI (urinary tract infection) Status: Acute (5) COPD (chronic obstructive pulmonary disease) Status: Acute
--- NOTE | 2018-01-16 23:23 | CP.PCM.PN ---
Subjective - Date & Time of Evaluation Date of Evaluation: 01/16/18 Time of Evaluation: 12:45 - Subjective Subjective: clinically same Objective - Vital Signs/Intake and Output Vital Signs (last 24 hours): Temp Pulse Resp BP Pulse Ox 97.5 F L 56 L 16 132/76 97 01/16/18 20:00 01/16/18 23:07 01/16/18 23:07 01/16/18 23:07 01/16/18 23:07 Intake and Output: 01/16/18 01/17/18 18:59 06:59 Intake Total 1553.2 386.0 Output Total 850 2000 Balance 703.2 -1614.0 - Medications Medications: Current Medications Albuterol/Ipratropium (Duoneb 3 Mg/0.5 Mg (3 Ml) Ud) 3 ml INH RQ4 [facility] Last Admin: 01/16/18 20:01 Dose: 3 ml Famotidine (Pepcid) 20 mg IVP DAILY [facility] Last Admin: 01/16/18 09:58 Dose: 20 mg Heparin Sodium (Porcine) (Heparin) 5,000 units SC Q8 [facility] Last Admin: 01/16/18 21:44 Dose: 5,000 units Hydrocortisone Sodium Succinate (Solu-Cortef) 100 mg IV Q8H [facility] Last Admin: 01/16/18 17:04 Dose: 100 mg Propofol (Diprivan) 1,000 mg in 100 mls @ 2.776 mls/hr IV .Q24H PRN; Protocol; 5 MCG/KG/MIN PRN Reason: Agitation Last Admin: 01/16/18 21:08 Dose: 40 mcg/kg/min, 22.208 mls/hr Meropenem 1 gm/ Sodium (Chloride) 100 mls @ 100 mls/hr IVPB Q8H [facility] PRN Reason: Protocol Last Admin: 01/16/18 23:15 Dose: 100 mls/hr Insulin Aspart (Novolog) 0 unit SC Q6H [facility] PRN Reason: Protocol Last Admin: 01/16/18 18:22 Dose: 3 units - Labs Labs: 01/16/18 06:14 01/16/18 06:14 PT 15.7 SECONDS (9.7-12.2) H 01/13/18 15:13 INR 1.4 01/13/18 15:13 APTT 92 SECONDS (21-34) H D 01/16/18 06:14 - Constitutional Appears: Well - Head Exam Head Exam: ATRAUMATIC, NORMAL INSPECTION, NORMOCEPHALIC - Eye Exam Eye Exam: EOMI, Normal appearance, PERRL Pupil Exam: NORMAL ACCOMODATION, PERRL - ENT Exam ENT Exam: Mucous Membranes Moist, Normal Exam - Neck Exam Neck Exam: Full ROM, Normal Inspection. absent: Lymphadenopathy - Respiratory Exam Respiratory Exam: Decreased Breath Sounds - Cardiovascular Exam Cardiovascular Exam: REGULAR RHYTHM, +S1, +S2 - GI/Abdominal Exam GI & Abdominal Exam: Soft, Diminished Bowel Sounds - Rectal Exam Rectal Exam: Deferred Assessment and Plan (1) Atrial fibrillation Status: Acute (2) Fever Status: Acute (3) Mental status alteration Status: Acute (4) UTI (urinary tract infection) Status: Acute (5) BPH (benign prostatic hyperplasia) Status: Acute (6) COPD (chronic obstructive pulmonary disease) Status: Acute (7) Congestive heart failure (CHF) Status: Acute (8) GERD (gastroesophageal reflux disease) Status: Acute (9) Hematuria Status: Acute (10) Hypertension Status: Acute (11) Pneumonia Status: Acute (12) Urinary retention Status: Acute
--- NOTE | 2018-01-17 | CP.PCM.PN ---
Subjective - Date & Time of Evaluation Date of Evaluation: 01/16/18 Time of Evaluation: 17:05 - Subjective Subjective: Patient was seen and examined. On Ventilator Physical Examination - Constitutional Appears: Non-toxic, No Acute Distress, Other (sedated) - ENT Exam ENT Exam: Mucous Membranes Moist - Respiratory Exam Respiratory Exam: NORMAL BREATHING PATTERN - Cardiovascular Exam Cardiovascular Exam: +S1, +S2. absent: JVD - Extremities Exam Extremities Exam: Pedal Edema (2+) - Neurological Exam Neurological Exam: Altered (sedated) - Skin Skin Exam: Normal Color, Warm Objective - Vital Signs/Intake and Output Vital Signs (last 24 hours): Temp Pulse Resp BP Pulse Ox 97.5 F L 56 L 16 132/76 97 01/16/18 20:00 01/16/18 23:07 01/16/18 23:07 01/16/18 23:07 01/16/18 23:07 Intake and Output: 01/16/18 01/17/18 18:59 06:59 Intake Total 1553.2 386.0 Output Total 850 2000 Balance 703.2 -1614.0 - Medications Medications: Current Medications Albuterol/Ipratropium (Duoneb 3 Mg/0.5 Mg (3 Ml) Ud) 3 ml INH RQ4 [facility] Last Admin: 01/16/18 20:01 Dose: 3 ml Famotidine (Pepcid) 20 mg IVP DAILY [facility] Last Admin: 01/16/18 09:58 Dose: 20 mg Heparin Sodium (Porcine) (Heparin) 5,000 units SC Q8 [facility] Last Admin: 01/16/18 21:44 Dose: 5,000 units Hydrocortisone Sodium Succinate (Solu-Cortef) 100 mg IV Q8H [facility] Last Admin: 01/16/18 17:04 Dose: 100 mg Propofol (Diprivan) 1,000 mg in 100 mls @ 2.776 mls/hr IV .Q24H PRN; Protocol; 5 MCG/KG/MIN PRN Reason: Agitation Last Admin: 01/16/18 21:08 Dose: 40 mcg/kg/min, 22.208 mls/hr Meropenem 1 gm/ Sodium (Chloride) 100 mls @ 100 mls/hr IVPB Q8H [facility] PRN Reason: Protocol Last Admin: 01/16/18 23:15 Dose: 100 mls/hr Insulin Aspart (Novolog) 0 unit SC Q6H JOJO PRN Reason: Protocol Last Admin: 01/16/18 18:22 Dose: 3 units - Labs Labs: 01/16/18 06:14 01/16/18 06:14 PT 15.7 SECONDS (9.7-12.2) H 01/13/18 15:13 INR 1.4 01/13/18 15:13 APTT 92 SECONDS (21-34) H D 01/16/18 06:14 Assessment and Plan - Assessment and Plan (Free Text) Assessment: Atrial fibrillation with rapid ventricular response Assessment & Plan: Lopressor 2.5 IV Q6H Amiodarone 900mg IV q24h ---> Switched to 400mg PO Q8H Echocardiogram: Suboptimal study. Please refer to the EMR for complete impression Status: Acute SVT (supraventricular tachycardia) Assessment & Plan: Cardioversion > X2 Amiodarone 900mg IV q24h ---> Switched to 400mg PO Q8H Status: Acute D-dimer, elevated Assessment & Plan: D-dimer : [address]: Not completed due to patient's condition Heparin drip initiated Status: Acute UTI Assessment & Plan: Sepsis on admission UA/UC positive for UTI On: Aztreonam 1gm IV Q8H Meropenem 1gm IV Q12H Monitor Status: Acute Prophylactic measure Assessment & Plan: DVT: Heparin drip GI: Pepcid 20mg IV daily
[2018-01-17] MEDS: (Novolog) Insulin Aspart, Recombinant 100 u/ml 10 ml vial SC SCH ×4 (00:16→18:48)
[2018-01-17] MEDS: Albuterol-Ipratrop 3 mg / 0.5 (3 ml) UD INH SCH ×6 (00:31→23:20)
[2018-01-17] MEDS: Propofol 10 mg/ml 1,000 MG/100 ML VIAL IV PRN ×5 (00:34→21:03)
[2018-01-17 06:38] LABS: ABG ALLEN TEST NEG; ARTERIAL BLOOD GAS HCO3 32.7 mmol/L (21-28); ARTERIAL BLOOD GAS HEMOGLOBIN 10.2 g/dL (11.7-17.4); ARTERIAL BLOOD GAS O2 SAT 95.9 % (95-98); ARTERIAL BLOOD GAS PCO2 51 mm/Hg (35-45); ARTERIAL BLOOD GAS PH 7.45 (7.35-7.45); ARTERIAL BLOOD GAS PO2 67 mm/Hg (80-100)
[2018-01-17 06:56] LABS: ALB/GLOB RATIO 0.9 (1.0-2.1); ALT/SGPT 40 U/L (21-72); AST/SGOT 40 U/L (17-59); BLOOD UREA NITROGEN 23 mg/dL (9-20); CALCIUM 7.9 mg/dl (8.6-10.4); GFR NON-AFRICAN AMERICAN > 60
[2018-01-17 07:06] LABS: EOS % 0.1 % (0.0-4.0); LYMPH # 1.5 K/uL (1.0-4.3)
[2018-01-17 07:13] LABS: BASO # 0.1 K/uL (0.0-0.2); BASO % 0.4 % (0.0-2.0); HEMOGLOBIN 9.9 g/dL (12.0-18.0); LYMPH % 10.4 % (20.0-40.0); MEAN CELL VOLUME 80.7 fL (80.0-94.0); MEAN CORPUSCULAR HEMOGLOBIN 25.5 pg (27.0-31.0); MEAN CORPUSCULAR HGB CONC 31.6 g/dL (33.0-37.0); MEAN PLATELET VOLUME 7.9 fL (7.2-11.7); MONO # 1.1 K/uL (0.0-0.8); MONO % 7.9 % (0.0-10.0); NEUT # 11.7 K/uL (1.8-7.0); NEUT % 81.2 % (50.0-75.0); NRBC % 0.3 % (0.0-2.0); RBC 3.87 Mil/uL (4.40-5.90); RED CELL DISTRIBUTION WIDTH 17.9 % (11.5-14.5); WHITE BLOOD COUNT 14.5 K/uL (4.8-10.8)
[2018-01-17] MEDS ORDERED: Magnesium Sulfate 1 gm in D5W 1 GM/100 ML BAG IVPB ONE (08:00)
[2018-01-17] MEDS: Meropenem 1 GM in Sodium Chloride 0.9% 100 ML IVPB SCH ×2 (08:08→16:20)
[2018-01-17] MEDS: Potassium Chloride 20 mEq/15 ml LIQ UD PO SCH ×2 (08:14→14:36)
--- NOTE | 2018-01-17 08:46 | RAD ---
Chest x-ray single frontal view History: Follow-up. Comparison: 01/16/2018 Findings: Lines and tubes in stable position. Moderate venous congestion. Prominent bibasilar airspace opacities. Moderate right and small left pleural effusion. Cardiomegaly. Degenerative changes in the spine and shoulders. Postsurgical changes in the spine. Impression: Lines and tubes in stable position. Moderate venous congestion. Prominent bibasilar airspace opacities. Moderate right and small left pleural effusion. Cardiomegaly.
--- NOTE | 2018-01-17 10:48 | CP.PCM.PN ---
Subjective - Date & Time of Evaluation Date of Evaluation: 01/17/18 Time of Evaluation: 10:21 - Subjective Subjective: Patient seen and examined at bedside. Intubated. no events overnight. Patient tolerating CPAP at 30% FiO2 Objective - Vital Signs/Intake and Output Vital Signs (last 24 hours): Temp Pulse Resp BP Pulse Ox 98.2 F 57 L 18 136/64 94 L 01/17/18 08:00 01/17/18 08:07 01/17/18 08:07 01/17/18 08:07 01/17/18 08:00 Intake and Output: 01/17/18 01/17/18 06:59 18:59 Intake Total 1186.4 639.6 Output Total 3200 1150 Balance -2013.6 -510.4 - Medications Medications: Current Medications Albuterol/Ipratropium (Duoneb 3 Mg/0.5 Mg (3 Ml) Ud) 3 ml INH RQ4 [facility] Last Admin: 01/17/18 08:11 Dose: 3 ml Famotidine (Pepcid) 20 mg GT DAILY [facility] Last Admin: 01/17/18 10:00 Dose: 20 mg Heparin Sodium (Porcine) (Heparin) 5,000 units SC Q8 [facility] Last Admin: 01/17/18 06:10 Dose: 5,000 units Hydrocortisone Sodium Succinate (Solu-Cortef) 100 mg IV Q8H [facility] Last Admin: 01/17/18 08:50 Dose: 100 mg Propofol (Diprivan) 1,000 mg in 100 mls @ 2.776 mls/hr IV .Q24H PRN; Protocol; 5 MCG/KG/MIN PRN Reason: Agitation Last Titration: 01/17/18 09:12 Dose: 30 mcg/kg/min, 16.656 mls/hr Meropenem 1 gm/ Sodium (Chloride) 100 mls @ 100 mls/hr IVPB Q8H [facility] PRN Reason: Protocol Last Admin: 01/17/18 08:08 Dose: 100 mls/hr Potassium Chloride (Potassium Chloride 10 Meq/100 Ml) 10 meq in 100 mls @ 100 mls/hr IVPB Q1H [facility] Stop: 01/17/18 10:59 Last Admin: 01/17/18 10:00 Dose: 100 mls/hr Insulin Aspart (Novolog) 0 unit SC Q6H [facility] PRN Reason: Protocol Last Admin: 01/17/18 06:10 Dose: 2 units Potassium Chloride (Potassium Chloride Oral Soln) 40 meq PO Q6H [facility] Stop: 01/17/18 14:01 Last Admin: 01/17/18 08:14 Dose: 40 meq - Labs Labs: 01/17/18 06:30 01/17/18 06:30 PT 15.7 SECONDS (9.7-12.2) H 01/13/18 15:13 INR 1.4 01/13/18 15:13 APTT 92 SECONDS (21-34) H D 01/16/18 06:14 - Head Exam Head Exam: ATRAUMATIC, NORMAL INSPECTION - Respiratory Exam Respiratory Exam: Clear to Ausculation Bilateral, Rales, NORMAL BREATHING PATTERN - Cardiovascular Exam Cardiovascular Exam: REGULAR RHYTHM, +S1, +S2, Murmur - GI/Abdominal Exam GI & Abdominal Exam: Distended, Soft, Normal Bowel Sounds. absent: Guarding, Rigid, Tenderness - Extremities Exam Extremities Exam: Normal Inspection - Skin Skin Exam: Normal Color Assessment and Plan - Assessment and Plan (Free Text) Assessment: Patient seen and examined at bedside. Patient with h/o hypoxic respiratory failure. Clinically patient as b/l LE edema and fluid overloaded -Hypoxic respiratory failure: 2nd fluid overload, continue lasix -Continue ventialtion to keep spo2 >92 and pH b/w 7.35-7.45, continue bronchodilators -continue ng tube feeds -contineu ABx as per ID, f/u cultures daily CPAP: patient toelrated CPap today for more than 4 hours. -d/c karthik, start flomax d/w ICU team
--- NOTE | 2018-01-17 11:27 | CP.PCM.PN ---
Subjective - Date & Time of Evaluation Date of Evaluation: 01/17/18 Time of Evaluation: 13:15 - Subjective Subjective: clinically same Objective - Vital Signs/Intake and Output Vital Signs (last 24 hours): Temp Pulse Resp BP Pulse Ox 98.2 F 46 L 15 104/53 L 96 01/17/18 08:00 01/17/18 11:00 01/17/18 11:00 01/17/18 10:07 01/17/18 11:00 Intake and Output: 01/17/18 01/17/18 06:59 18:59 Intake Total 1186.4 819.2 Output Total 3200 1300 Balance -2013.6 -480.8 - Medications Medications: Current Medications Albuterol/Ipratropium (Duoneb 3 Mg/0.5 Mg (3 Ml) Ud) 3 ml INH RQ4 [facility] Last Admin: 01/17/18 08:11 Dose: 3 ml Famotidine (Pepcid) 20 mg GT DAILY [facility] Last Admin: 01/17/18 10:00 Dose: 20 mg Heparin Sodium (Porcine) (Heparin) 5,000 units SC Q8 [facility] Last Admin: 01/17/18 06:10 Dose: 5,000 units Hydrocortisone Sodium Succinate (Solu-Cortef) 100 mg IV Q8H [facility] Last Admin: 01/17/18 08:50 Dose: 100 mg Propofol (Diprivan) 1,000 mg in 100 mls @ 2.776 mls/hr IV .Q24H PRN; Protocol; 5 MCG/KG/MIN PRN Reason: Agitation Last Admin: 01/17/18 10:54 Dose: 30 mcg/kg/min, 16.656 mls/hr Meropenem 1 gm/ Sodium (Chloride) 100 mls @ 100 mls/hr IVPB Q8H [facility] PRN Reason: Protocol Last Admin: 01/17/18 08:08 Dose: 100 mls/hr Insulin Aspart (Novolog) 0 unit SC Q6H [facility] PRN Reason: Protocol Last Admin: 01/17/18 06:10 Dose: 2 units Potassium Chloride (Potassium Chloride Oral Soln) 40 meq PO Q6H [facility] Stop: 01/17/18 14:01 Last Admin: 01/17/18 08:14 Dose: 40 meq Tamsulosin HCl (Flomax) 0.4 mg PO DAILY [facility] Last Admin: 01/17/18 11:16 Dose: 0.4 mg - Labs Labs: 01/17/18 06:30 01/17/18 06:30 PT 15.7 SECONDS (9.7-12.2) H 01/13/18 15:13 INR 1.4 01/13/18 15:13 APTT 92 SECONDS (21-34) H D 01/16/18 06:14 - Constitutional Appears: Well - Head Exam Head Exam: ATRAUMATIC, NORMAL INSPECTION, NORMOCEPHALIC - Eye Exam Eye Exam: EOMI, Normal appearance, PERRL Pupil Exam: NORMAL ACCOMODATION, PERRL - ENT Exam ENT Exam: Mucous Membranes Moist, Normal Exam - Neck Exam Neck Exam: Full ROM, Normal Inspection. absent: Lymphadenopathy - Respiratory Exam Respiratory Exam: Decreased Breath Sounds - Cardiovascular Exam Cardiovascular Exam: REGULAR RHYTHM, +S1, +S2 - GI/Abdominal Exam GI & Abdominal Exam: Soft, Diminished Bowel Sounds - Rectal Exam Rectal Exam: Deferred Assessment and Plan (1) Atrial fibrillation Status: Acute (2) Fever Status: Acute (3) Mental status alteration Status: Acute (4) UTI (urinary tract infection) Status: Acute (5) BPH (benign prostatic hyperplasia) Status: Acute (6) COPD (chronic obstructive pulmonary disease) Status: Acute (7) Congestive heart failure (CHF) Status: Acute (8) GERD (gastroesophageal reflux disease) Status: Acute (9) Hematuria Status: Acute (10) Hypertension Status: Acute (11) Pneumonia Status: Acute (12) Urinary retention Status: Acute
--- NOTE | 2018-01-17 22:45 | CP.PCM.PN ---
Subjective - Date & Time of Evaluation Date of Evaluation: 01/17/18 Time of Evaluation: 18:20 - Subjective Subjective: Patient was seen and examined. On Ventilator Physical Examination - Constitutional Appears: Non-toxic, No Acute Distress, Other (sedated) - ENT Exam ENT Exam: Mucous Membranes Moist - Respiratory Exam Respiratory Exam: NORMAL BREATHING PATTERN - Cardiovascular Exam Cardiovascular Exam: +S1, +S2. absent: JVD - Extremities Exam Extremities Exam: Pedal Edema (2+) - Neurological Exam Neurological Exam: Altered (sedated) - Skin Skin Exam: Normal Color, Warm Objective - Vital Signs/Intake and Output Vital Signs (last 24 hours): Temp Pulse Resp BP Pulse Ox 98 F 48 L 20 126/64 99 01/17/18 16:00 01/17/18 21:07 01/17/18 21:07 01/17/18 21:07 01/17/18 21:00 Intake and Output: 01/17/18 01/18/18 18:59 06:59 Intake Total 1695.5 208.6 Output Total 2450 0 Balance -754.5 208.6 - Medications Medications: Current Medications Albuterol/Ipratropium (Duoneb 3 Mg/0.5 Mg (3 Ml) Ud) 3 ml INH RQ4 [facility] Last Admin: 01/17/18 19:53 Dose: 3 ml Aspirin (Aspirin Chewable) 81 mg PO DAILY [facility] Famotidine (Pepcid) 20 mg GT DAILY [facility] Last Admin: 01/17/18 10:00 Dose: 20 mg Heparin Sodium (Porcine) (Heparin) 5,000 units SC Q8 [facility] Last Admin: 01/17/18 21:03 Dose: 5,000 units Hydrocortisone Sodium Succinate (Solu-Cortef) 100 mg IV Q8H [facility] Last Admin: 01/17/18 16:44 Dose: 100 mg Propofol (Diprivan) 1,000 mg in 100 mls @ 2.776 mls/hr IV .Q24H PRN; Protocol; 5 MCG/KG/MIN PRN Reason: Agitation Last Admin: 01/17/18 21:03 Dose: 35 mcg/kg/min, 19.432 mls/hr Meropenem 1 gm/ Sodium (Chloride) 100 mls @ 100 mls/hr IVPB Q8H [facility] PRN Reason: Protocol Last Admin: 01/17/18 16:20 Dose: 100 mls/hr Insulin Aspart (Novolog) 0 unit SC Q6H [facility] PRN Reason: Protocol Last Admin: 01/17/18 18:48 Dose: 2 units Potassium Chloride (Klor-Con 10) 10 meq PO BRK [facility] Rosuvastatin Calcium (Crestor) 5 mg PO HS [facility] Last Admin: 01/17/18 21:03 Dose: 5 mg Tamsulosin HCl (Flomax) 0.4 mg PO DAILY [facility] Last Admin: 01/17/18 11:16 Dose: 0.4 mg - Labs Labs: 01/17/18 06:30 01/17/18 06:30 PT 15.7 SECONDS (9.7-12.2) H 01/13/18 15:13 INR 1.4 01/13/18 15:13 APTT 92 SECONDS (21-34) H D 01/16/18 06:14 Assessment and Plan - Assessment and Plan (Free Text) Assessment: Atrial fibrillation with rapid ventricular response to NSR Assessment & Plan: ECHO: Normal Ef Status: Acute SVT (supraventricular tachycardia) Assessment & Plan: Cardioversion > X2 Amiodarone 900mg IV q24h ---> Switched to 400mg PO Q8H Status: Acute D-dimer, elevated Assessment & Plan: D-dimer : [address]: Not completed due to patient's condition Heparin drip initiated Status: Acute UTI Assessment & Plan: Sepsis on admission UA/UC positive for UTI On: Aztreonam 1gm IV Q8H Meropenem 1gm IV Q12H Monitor Status: Acute Prophylactic measure Assessment & Plan: DVT: Heparin drip GI: Pepcid 20mg IV daily
[2018-01-18] MEDS: Meropenem 1 GM in Sodium Chloride 0.9% 100 ML IVPB SCH ×3 (00:41→16:56)
[2018-01-18] MEDS: (Novolog) Insulin Aspart, Recombinant 100 u/ml 10 ml vial SC SCH ×4 (00:42→18:36)
[2018-01-18 02:08] LABS: SQUAMOUS EPITHIAL 2 /hpf (0-5); URINE BACTERIA RARE (<OCC); URINE BILIRUBIN NEGATIVE (NEGATIVE); URINE BLOOD NEGATIVE (NEGATIVE); URINE CLARITY Clear (Clear); URINE COLOR Straw (YELLOW); URINE GLUCOSE (UA) NORMAL (Normal); URINE LEUKOCYTE ESTERASE NEG Leu/uL (Negative); URINE PROTEIN NEGATIVE (NEGATIVE); URINE UROBILINOGEN NORMAL mg/dL (0.2-1.0)
[2018-01-18] MEDS: Albuterol-Ipratrop 3 mg / 0.5 (3 ml) UD INH SCH ×5 (03:09→19:09)
[2018-01-18] MEDS: Propofol 10 mg/ml 1,000 MG/100 ML VIAL IV PRN ×4 (03:30→21:44)
[2018-01-18 04:41] LABS: ARTERIAL BLOOD GAS HCO3 37.7 mmol/L (21-28); ARTERIAL BLOOD GAS O2 SAT 91.8 % (95-98); ARTERIAL BLOOD GAS PCO2 50 mm/Hg (35-45); ARTERIAL BLOOD GAS PH 7.53 (7.35-7.45); ARTERIAL BLOOD GAS PO2 55 mm/Hg (80-100); ARTERIAL BLOOD GAS TCO2 43.3 mmol/L (22-28)
[2018-01-18 06:32] LABS: BASO % 0.3 % (0.0-2.0); EOS % 0.1 % (0.0-4.0); HEMOGLOBIN 10.4 g/dL (12.0-18.0); LYMPH # 2.3 K/uL (1.0-4.3); MEAN CELL VOLUME 80.3 fL (80.0-94.0); MEAN CORPUSCULAR HEMOGLOBIN 25.8 pg (27.0-31.0); MEAN CORPUSCULAR HGB CONC 32.1 g/dL (33.0-37.0); MEAN PLATELET VOLUME 7.9 fL (7.2-11.7); MONO # 1.4 K/uL (0.0-0.8); MONO % 9.4 % (0.0-10.0); NEUT # 10.7 K/uL (1.8-7.0); NEUT % 74.2 % (50.0-75.0); NRBC % 0.3 % (0.0-2.0); RBC 4.04 Mil/uL (4.40-5.90); RED CELL DISTRIBUTION WIDTH 17.7 % (11.5-14.5); WHITE BLOOD COUNT 14.4 K/uL (4.8-10.8)
[2018-01-18 06:57] LABS: ALBUMIN 3.1 g/dL (3.5-5.0); ALT/SGPT 55 U/L (21-72); AST/SGOT 54 U/L (17-59); BLOOD UREA NITROGEN 32 mg/dL (9-20); CALCIUM 8.1 mg/dl (8.6-10.4); GFR NON-AFRICAN AMERICAN > 60
[2018-01-18] MEDS: Potassium Chloride 10 mEq ER Tab PO SCH (07:47)
[2018-01-18] MEDS ORDERED: Potassium Chloride 20 mEq/15 ml LIQ UD PO ONE (08:27)
--- NOTE | 2018-01-18 09:03 | RAD ---
Date of service: 01/18/2018 PROCEDURE: CHEST RADIOGRAPH, 1 VIEW HISTORY: effusion COMPARISON: 01/17/2018. FINDINGS: Endotracheal tube terminates 2 cm proximal to the ze. The nasogastric tube terminates in the stomach. The right PICC line terminates in the SVC. LUNGS: The lungs are well inflated. There is moderate pulmonary venous congestion. PLEURA: No pneumothorax. Small pleural effusions. CARDIOVASCULAR: Stable mild cardiomegaly. OSSEOUS STRUCTURES: No significant abnormalities. VISUALIZED UPPER ABDOMEN: Normal. OTHER FINDINGS: None. IMPRESSION: No significant interval change in mild congestive heart failure Stable position of endotracheal and nasogastric tubes.
--- NOTE | 2018-01-18 10:58 | CP.CCUPN ---
CCU Subjective - Physician Review Subjective (Free Text): ICU Progress note Patient seen and examined at bedside. Patient is sedated and intubated. Unable to provide history. Plan to attempt CPAP trial today. CCU Objective - Vital Signs / Intake & Output Vital Signs (Last 4 hours): Vital Signs Temp Pulse Resp BP Pulse Ox 01/18/18 09:08 122/77 01/18/18 09:00 56 L 19 100 01/18/18 08:07 51 L 16 129/76 01/18/18 08:00 97.6 F 51 L 16 100 01/18/18 07:07 53 L 14 141/86 98 01/18/18 07:00 56 L 16 100 Intake and Output (Last 8hrs): Intake & Output 01/17/18 01/18/18 01/18/18 22:59 06:59 14:59 Intake Total 664.4 634.4 362.9 Output Total 300 1000 350 Balance 364.4 -365.6 12.9 Weight 208 lb 4.8 oz Intake: IV 130 100 Intake, IV Amount 254.4 254.4 57.9 Right Distal Port PICC 154.4 154.4 57.9 Right Proximal Port PICC 100 100 Tube Feeding 280 280 105 Other 200 Output: Urine 300 1000 350 Urethral (Olivares) 300 1000 350 - Physical Exam Physical Exam Limitations: Positive for: Altered Mental Status Head: Positive for: Atraumatic, Normocephalic Mouth: Positive for: Dry, Other (ETT, OGT in place) Nose (External): Positive for: Atraumatic Respiratory/Chest: Positive for: Decreased Breath Sounds. Negative for: Respiratory Distress (Vented) Cardiovascular: Positive for: Regular Rate and Rhythm, Normal S1, S2 Abdomen: Positive for: Normal Bowel Sounds, Other (Olivares draining urine. ). Negative for: Tenderness Upper Extremity: Positive for: Edema (bilateral edema on upper extremities ), Other (PICC line in place) Lower Extremity: Positive for: Edema (Edema of bilateral lower extremities. Unable to palpate DP pulses on LLE secondary to edema. ), Other (Right lower extremity: Doralis pedis pulse present) Neurological: Positive for: Other (Altered, sedated) Psychiatric: Positive for: Other (Altered) - Medications Active Medications: Active Medications Generic Name Dose Route Start Last Admin Trade Name Freq PRN Reason Stop Dose Admin Albuterol/Ipratropium 3 ml 01/15/18 12:00 01/18/18 07:45 Duoneb 3 Mg/0.5 Mg (3 Ml) Ud INH 3 ml RQ4 JOJO Administration Aspirin 81 mg 01/18/18 10:00 01/18/18 09:34 Aspirin Chewable PO 81 mg DAILY JOJO Administration Famotidine 20 mg 01/17/18 10:00 01/18/18 09:34 Pepcid GT 20 mg DAILY JOJO Administration Heparin Sodium (Porcine) 5,000 units 01/16/18 14:00 01/18/18 05:48 Heparin SC 5,000 units Q8 JOJO Administration Hydrocortisone Sodium Succinate 100 mg 01/15/18 17:00 01/18/18 09:34 Solu-Cortef IV 100 mg Q8H JOJO Administration Propofol 1,000 mg in 100 mls @ 2.776 mls/hr 01/12/18 19:21 01/18/18 03:30 Diprivan IV 35 mcg/kg/min .Q24H PRN 19.432 mls/hr Agitation Administration Protocol 5 MCG/KG/MIN Meropenem 1 gm/ Sodium 100 mls @ 100 mls/hr 01/15/18 00:00 01/18/18 07:46 Chloride IVPB 100 mls/hr Q8H JOJO Administration Protocol Insulin Aspart 0 unit 01/15/18 12:00 01/18/18 05:05 Novolog SC Not Given Q6H JOJO Protocol Potassium Chloride 10 meq 01/18/18 08:00 01/18/18 07:47 Klor-Con 10 PO 10 meq BRK JOJO Administration Rosuvastatin Calcium 5 mg 01/17/18 22:00 01/17/18 21:03 Crestor PO 5 mg HS JOJO Administration Tamsulosin HCl 0.4 mg 01/17/18 11:00 01/18/18 09:34 Flomax PO 0.4 mg DAILY JOJO Administration - Patient Studies Lab Studies: Microbiology Studies 01/14/18 10:48 Blood Culture - Preliminary Blood-Thru Central Line NO GROWTH AFTER 4 DAYS 01/14/18 10:48 Blood Culture - Preliminary Blood-Thru Central Line NO GROWTH AFTER 4 DAYS Lab Studies 01/18/18 01/18/18 01/18/18 Range/Units 06:19 06:16 04:59 WBC 14.4 H (4.8-10.8) K/uL RBC 4.04 L (4.40-5.90) Mil/uL Hgb 10.4 L (12.0-18.0) g/dL Hct 32.5 L (35.0-51.0) % MCV 80.3 (80.0-94.0) fL MCH 25.8 L (27.0-31.0) pg MCHC 32.1 L (33.0-37.0) g/dL RDW 17.7 H (11.5-14.5) % Plt Count 223 (130-400) K/uL MPV 7.9 (7.2-11.7) fL Neut % (Auto) 74.2 (50.0-75.0) % Lymph % (Auto) 16.0 L (20.0-40.0) % [place] % (Auto) 9.4 (0.0-10.0) % Eos % (Auto) 0.1 (0.0-4.0) % Baso % (Auto) 0.3 (0.0-2.0) % Neut # (Auto) 10.7 H (1.8-7.0) K/uL Lymph # (Auto) 2.3 (1.0-4.3) K/uL [place] # (Auto) 1.4 H (0.0-0.8) K/uL Eos # (Auto) 0.0 (0.0-0.7) K/uL Baso # (Auto) 0.0 (0.0-0.2) K/uL Puncture Site pCO2 (35-45) mm/Hg pO2 (80-100) mm/Hg HCO3 (21-28) mmol/L ABG pH (7.35-7.45) ABG Total CO2 (22-28) mmol/L ABG O2 Saturation (95-98) % ABG Base Excess (-2.0-3.0) mmol/L Aníbal Test ABG Potassium (3.6-5.2) mmol/L A-a O2 Difference mm/Hg Respiratory Index Sodium 147 (132-148) mmol/l Chloride 98 (98-107) mmol/L Glucose (75-110) mg/dl Lactate (0.7-2.1) mmol/L Vent Mode Mechanical Rate FiO2 % Tidal Volume PEEP Potassium 3.4 L (3.6-5.2) mmol/L Carbon Dioxide 38 H (22-30) mmol/L Anion Gap 15 (10-20) BUN 32 H (9-20) mg/dL Creatinine 0.8 (0.8-1.5) mg/dL Est GFR ( Amer) > 60 Est GFR (Non-Af Amer) > 60 POC Glucose (mg/dL) 144 H (65-110) mg/dL Random Glucose 138 H (75-110) mg/dL Calcium 8.1 L (8.6-10.4) mg/dl Phosphorus 3.2 (2.5-4.5) mg/dL Magnesium 1.9 (1.6-2.3) mg/dL Total Bilirubin 0.5 (0.2-1.3) mg/dL AST 54 (17-59) U/L ALT 55 (21-72) U/L Alkaline Phosphatase 120 (38-126) U/L Total Protein 6.4 (6.3-8.3) g/dL Albumin 3.1 L (3.5-5.0) g/dL Globulin 3.3 (2.2-3.9) gm/dL Albumin/Globulin Ratio 1.0 (1.0-2.1) Arterial Blood Potassium (3.6-5.2) mmol/L Urine Color (YELLOW) Urine Clarity (Clear) Urine pH (5.0-8.0) Ur Specific [place] (1.003-1.030) Urine Protein (NEGATIVE) mg/dL Urine Glucose (UA) (Normal) mg/dL Urine Ketones (NEGATIVE) mg/dL Urine Blood (NEGATIVE) Urine Nitrate (NEGATIVE) Urine Bilirubin (NEGATIVE) Urine Urobilinogen (0.2-1.0) mg/dL Ur Leukocyte Esterase (Negative) [place]/uL Urine WBC (Auto) (0-5) /hpf Urine RBC (Auto) (0-3) /hpf Ur Squamous Epith Cells (0-5) /hpf Urine Bacteria (<OCC) Hyaline Casts (0-2) /lpf 01/18/18 01/18/18 01/18/18 Range/Units 04:57 04:30 01:56 WBC (4.8-10.8) K/uL RBC (4.40-5.90) Mil/uL Hgb (12.0-18.0) g/dL Hct (35.0-51.0) % MCV (80.0-94.0) fL MCH (27.0-31.0) pg MCHC (33.0-37.0) g/dL RDW (11.5-14.5) % Plt Count (130-400) K/uL MPV (7.2-11.7) fL Neut % (Auto) (50.0-75.0) % Lymph % (Auto) (20.0-40.0) % [place] % (Auto) (0.0-10.0) % Eos % (Auto) (0.0-4.0) % Baso % (Auto) (0.0-2.0) % Neut # (Auto) (1.8-7.0) K/uL Lymph # (Auto) (1.0-4.3) K/uL [place] # (Auto) (0.0-0.8) K/uL Eos # (Auto) (0.0-0.7) K/uL Baso # (Auto) (0.0-0.2) K/uL Puncture Site Lb pCO2 50 H (35-45) mm/Hg pO2 55 L (80-100) mm/Hg HCO3 37.7 H (21-28) mmol/L ABG pH 7.53 H (7.35-7.45) ABG Total CO2 43.3 H (22-28) mmol/L ABG O2 Saturation 91.8 L (95-98) % ABG Base Excess 16.6 H (-2.0-3.0) mmol/L Aníbal Test Na ABG Potassium 3.0 L (3.6-5.2) mmol/L A-a O2 Difference 168.0 mm/Hg Respiratory Index 3.1 Sodium 148.0 (132-148) mmol/l Chloride 106.0 (98-107) mmol/L Glucose 131 H (75-110) mg/dl Lactate 1.6 (0.7-2.1) mmol/L Vent Mode Prvc Mechanical Rate 16 FiO2 40.0 % Tidal Volume 440 PEEP 5 Potassium (3.6-5.2) mmol/L Carbon Dioxide (22-30) mmol/L Anion Gap (10-20) BUN (9-20) mg/dL Creatinine (0.8-1.5) mg/dL Est GFR ( Amer) Est GFR (Non-Af Amer) POC Glucose (mg/dL) 62 L (65-110) mg/dL Random Glucose (75-110) mg/dL Calcium (8.6-10.4) mg/dl Phosphorus (2.5-4.5) mg/dL Magnesium (1.6-2.3) mg/dL Total Bilirubin (0.2-1.3) mg/dL AST (17-59) U/L ALT (21-72) U/L Alkaline Phosphatase (38-126) U/L Total Protein (6.3-8.3) g/dL Albumin (3.5-5.0) g/dL Globulin (2.2-3.9) gm/dL Albumin/Globulin Ratio (1.0-2.1) Arterial Blood Potassium 3.0 L (3.6-5.2) mmol/L Urine Color Straw (YELLOW) Urine Clarity Clear (Clear) Urine pH 6.0 (5.0-8.0) Ur Specific [place] 1.011 (1.003-1.030) Urine Protein Negative (NEGATIVE) mg/dL Urine Glucose (UA) Normal (Normal) mg/dL Urine Ketones Negative (NEGATIVE) mg/dL Urine Blood Negative (NEGATIVE) Urine Nitrate Negative (NEGATIVE) Urine Bilirubin Negative (NEGATIVE) Urine Urobilinogen Normal (0.2-1.0) mg/dL Ur Leukocyte Esterase Neg (Negative) [place]/uL Urine WBC (Auto) 4 (0-5) /hpf Urine RBC (Auto) 4 H (0-3) /hpf Ur Squamous Epith Cells 2 (0-5) /hpf Urine Bacteria Rare (<OCC) Hyaline Casts 3-5 H (0-2) /lpf 01/17/18 01/17/18 01/17/18 Range/Units 23:54 17:40 12:33 WBC (4.8-10.8) K/uL RBC (4.40-5.90) Mil/uL Hgb (12.0-18.0) g/dL Hct (35.0-51.0) % MCV (80.0-94.0) fL MCH (27.0-31.0) pg MCHC (33.0-37.0) g/dL RDW (11.5-14.5) % Plt Count (130-400) K/uL MPV (7.2-11.7) fL Neut % (Auto) (50.0-75.0) % Lymph % (Auto) (20.0-40.0) % [place] % (Auto) (0.0-10.0) % Eos % (Auto) (0.0-4.0) % Baso % (Auto) (0.0-2.0) % Neut # (Auto) (1.8-7.0) K/uL Lymph # (Auto) (1.0-4.3) K/uL [place] # (Auto) (0.0-0.8) K/uL Eos # (Auto) (0.0-0.7) K/uL Baso # (Auto) (0.0-0.2) K/uL Puncture Site pCO2 (35-45) mm/Hg pO2 (80-100) mm/Hg HCO3 (21-28) mmol/L ABG pH (7.35-7.45) ABG Total CO2 (22-28) mmol/L ABG O2 Saturation (95-98) % ABG Base Excess (-2.0-3.0) mmol/L Aníbal Test ABG Potassium (3.6-5.2) mmol/L A-a O2 Difference mm/Hg Respiratory Index Sodium (132-148) mmol/l Chloride (98-107) mmol/L Glucose (75-110) mg/dl Lactate (0.7-2.1) mmol/L Vent Mode Mechanical Rate FiO2 % Tidal Volume PEEP Potassium (3.6-5.2) mmol/L Carbon Dioxide (22-30) mmol/L Anion Gap (10-20) BUN (9-20) mg/dL Creatinine (0.8-1.5) mg/dL Est GFR ( Amer) Est GFR (Non-Af Amer) POC Glucose (mg/dL) 158 H 188 H 178 H (65-110) mg/dL Random Glucose (75-110) mg/dL Calcium (8.6-10.4) mg/dl Phosphorus (2.5-4.5) mg/dL Magnesium (1.6-2.3) mg/dL Total Bilirubin (0.2-1.3) mg/dL AST (17-59) U/L ALT (21-72) U/L Alkaline Phosphatase (38-126) U/L Total Protein (6.3-8.3) g/dL Albumin (3.5-5.0) g/dL Globulin (2.2-3.9) gm/dL Albumin/Globulin Ratio (1.0-2.1) Arterial Blood Potassium (3.6-5.2) mmol/L Urine Color (YELLOW) Urine Clarity (Clear) Urine pH (5.0-8.0) Ur Specific [place] (1.003-1.030) Urine Protein (NEGATIVE) mg/dL Urine Glucose (UA) (Normal) mg/dL Urine Ketones (NEGATIVE) mg/dL Urine Blood (NEGATIVE) Urine Nitrate (NEGATIVE) Urine Bilirubin (NEGATIVE) Urine Urobilinogen (0.2-1.0) mg/dL Ur Leukocyte Esterase (Negative) [place]/uL Urine WBC (Auto) (0-5) /hpf Urine RBC (Auto) (0-3) /hpf Ur Squamous Epith Cells (0-5) /hpf Urine Bacteria (<OCC) Hyaline Casts (0-2) /lpf Laboratory Results - last 24 hr 01/17/18 01/17/18 01/17/18 12:33 17:40 23:54 WBC RBC Hgb Hct MCV MCH MCHC RDW Plt Count MPV Neut % (Auto) Lymph % (Auto) [place] % (Auto) Eos % (Auto) Baso % (Auto) Neut # (Auto) Lymph # (Auto) [place] # (Auto) Eos # (Auto) Baso # (Auto) Puncture Site pCO2 pO2 HCO3 ABG pH ABG Total CO2 ABG O2 Saturation ABG Base Excess Aníbal Test ABG Potassium A-a O2 Difference Respiratory Index Sodium Chloride Glucose Lactate Vent Mode Mechanical Rate FiO2 Tidal Volume PEEP Potassium Carbon Dioxide Anion Gap BUN Creatinine Est GFR ( Amer) Est GFR (Non-Af Amer) POC Glucose (mg/dL) 178 H 188 H 158 H Random Glucose Calcium Phosphorus Magnesium Total Bilirubin AST ALT Alkaline Phosphatase Total Protein Albumin Globulin Albumin/Globulin Ratio Arterial Blood Potassium Urine Color Urine Clarity Urine pH Ur Specific [place] Urine Protein Urine Glucose (UA) Urine Ketones Urine Blood Urine Nitrate Urine Bilirubin Urine Urobilinogen Ur Leukocyte Esterase Urine WBC (Auto) Urine RBC (Auto) Ur Squamous Epith Cells Urine Bacteria Hyaline Casts 01/18/18 01/18/18 01/18/18 01:56 04:30 04:57 WBC RBC Hgb Hct MCV MCH MCHC RDW Plt Count MPV Neut % (Auto) Lymph % (Auto) [place] % (Auto) Eos % (Auto) Baso % (Auto) Neut # (Auto) Lymph # (Auto) [place] # (Auto) Eos # (Auto) Baso # (Auto) Puncture Site Lb pCO2 50 H pO2 55 L HCO3 37.7 H ABG pH 7.53 H ABG Total CO2 43.3 H ABG O2 Saturation 91.8 L ABG Base Excess 16.6 H Aníbal Test Na ABG Potassium 3.0 L A-a O2 Difference 168.0 Respiratory Index 3.1 Sodium 148.0 Chloride 106.0 Glucose 131 H Lactate 1.6 Vent Mode Prvc Mechanical Rate 16 FiO2 40.0 Tidal Volume 440 PEEP 5 Potassium Carbon Dioxide Anion Gap BUN Creatinine Est GFR ( Amer) Est GFR (Non-Af Amer) POC Glucose (mg/dL) 62 L Random Glucose Calcium Phosphorus Magnesium Total Bilirubin AST ALT Alkaline Phosphatase Total Protein Albumin Globulin Albumin/Globulin Ratio Arterial Blood Potassium 3.0 L Urine Color Straw Urine Clarity Clear Urine pH 6.0 Ur Specific [place] 1.011 Urine Protein Negative Urine Glucose (UA) Normal Urine Ketones Negative Urine Blood Negative Urine Nitrate Negative Urine Bilirubin Negative Urine Urobilinogen Normal Ur Leukocyte Esterase Neg Urine WBC (Auto) 4 Urine RBC (Auto) 4 H Ur Squamous Epith Cells 2 Urine Bacteria Rare Hyaline Casts 3-5 H 01/18/18 01/18/18 01/18/18 04:59 06:16 06:19 WBC 14.4 H RBC 4.04 L Hgb 10.4 L Hct 32.5 L MCV 80.3 MCH 25.8 L MCHC 32.1 L RDW 17.7 H Plt Count 223 MPV 7.9 Neut % (Auto) 74.2 Lymph % (Auto) 16.0 L [place] % (Auto) 9.4 Eos % (Auto) 0.1 Baso % (Auto) 0.3 Neut # (Auto) 10.7 H Lymph # (Auto) 2.3 [place] # (Auto) 1.4 H Eos # (Auto) 0.0 Baso # (Auto) 0.0 Puncture Site pCO2 pO2 HCO3 ABG pH ABG Total CO2 ABG O2 Saturation ABG Base Excess Aníbal Test ABG Potassium A-a O2 Difference Respiratory Index Sodium 147 Chloride 98 Glucose Lactate Vent Mode Mechanical Rate FiO2 Tidal Volume PEEP Potassium 3.4 L Carbon Dioxide 38 H Anion Gap 15 BUN 32 H Creatinine 0.8 Est GFR ( Amer) > 60 Est GFR (Non-Af Amer) > 60 POC Glucose (mg/dL) 144 H Random Glucose 138 H Calcium 8.1 L Phosphorus 3.2 Magnesium 1.9 Total Bilirubin 0.5 AST 54 ALT 55 Alkaline Phosphatase 120 Total Protein 6.4 Albumin 3.1 L Globulin 3.3 Albumin/Globulin Ratio 1.0 Arterial Blood Potassium Urine Color Urine Clarity Urine pH Ur Specific [place] Urine Protein Urine Glucose (UA) Urine Ketones Urine Blood Urine Nitrate Urine Bilirubin Urine Urobilinogen Ur Leukocyte Esterase Urine WBC (Auto) Urine RBC (Auto) Ur Squamous Epith Cells Urine Bacteria Hyaline Casts Fingerstick Blood Sugar Results: 188 Review of Systems - Review of Systems Systems not reviewed;Unavailable: Intubated Assessment/Plan - Assessment and Plan (Free Text) Assessment: 77 year old male with history of diastolic CHF, COPD, diverticulitis, HTN, peripheral edema, pneumonia who presented from [facility] for altered mental status. Patient was found to be hypotensive with leukocytosis. Patient intermittently went into SVT with rate into 180s, has required cardioversion, has been on Amiodarone drip and Amiodarone PO. Currently in SR without Amiodarone. Plan: Neuro: Altered mental status CT head Mild age related neuro degenerative changes are appreciated which appear age appropriate. No definite acute intracranial findings by standard CT criteria. Follow-up CT or MRI are available if clinically warranted. Sedated with Propofol Cardiovascular Remained in SR in 50s Not on pressors Hx of diastolic CHF proBNP 1370 Troponin 0.0340 ECHO: RV moderately dilated. Moderate TR. PICC line placed Vaccine Manager Dr. Blanco consulted, help appreciated Pulmonary CXR No interval pathology noted. Intubated, sedated on Propofol Dopplers negative for clots. D-dimer [address] angio cancelled On CPAP trial today with pressure support of 10 and PEEP of 5, however patient noted to be tachpneic and switched back to PRVC. GI Pepcid 20mg IV Started on NG tube feeds Renal BUN 32 Cr 0.8 I&Os Endo Maintain euglycemia ID White count 14.4 Not febrile currently On Meropenem UA 3+ LE, 2+ protein 2+ blood moderate bacteria WBC 1186 Blood cultures: proteus, repeat blood cx prelim neg urine culture Proteus, enterococcus fecalis, Trach aspirate pseudomonas aeruginosa Hydrocortisone 100mg IV Q8 ID Dr. Duong consulted, help appreciated Heme/Onc H/H stable PPX: Pepcid, Heparin drip Social: Spoke to patient's son Leonid Malone who stated that he would like to have patient's code status changed to DNR given patient's poor quality of life. Case discussed with Dr. Bagley
--- NOTE | 2018-01-18 11:20 | CP.PCM.PN ---
<Marily Farris - Last Filed: 01/18/18 19:09> Subjective - Date & Time of Evaluation Date of Evaluation: 01/18/18 Time of Evaluation: 11:05 - Subjective Subjective: Cardiology progress note ( Dr. Blanco's service) Patient was seen and examined at bedside. Patient is still currently on ventilator, therefore, unable to evaluate ROS. Patient does have withdrawal to pain and sternum rub. As per icu team, patient is in trial for weaning off ventilator, currently on Cipap. Objective - Vital Signs/Intake and Output Vital Signs (last 24 hours): Temp Pulse Resp BP Pulse Ox 97.6 F 54 L 15 124/73 100 01/18/18 08:00 01/18/18 11:00 01/18/18 11:00 01/18/18 10:08 01/18/18 11:00 Intake and Output: 01/18/18 01/18/18 06:59 18:59 Intake Total 897.3 566.0 Output Total 1000 700 Balance -102.7 -134.0 - Medications Medications: Current Medications Albuterol/Ipratropium (Duoneb 3 Mg/0.5 Mg (3 Ml) Ud) 3 ml INH RQ4 [facility] Last Admin: 01/18/18 07:45 Dose: 3 ml Aspirin (Aspirin Chewable) 81 mg PO DAILY [facility] Last Admin: 01/18/18 09:34 Dose: 81 mg Famotidine (Pepcid) 20 mg GT DAILY [facility] Last Admin: 01/18/18 09:34 Dose: 20 mg Heparin Sodium (Porcine) (Heparin) 5,000 units SC Q8 [facility] Last Admin: 01/18/18 05:48 Dose: 5,000 units Hydrocortisone Sodium Succinate (Solu-Cortef) 100 mg IV Q8H [facility] Last Admin: 01/18/18 09:34 Dose: 100 mg Propofol (Diprivan) 1,000 mg in 100 mls @ 2.776 mls/hr IV .Q24H PRN; Protocol; 5 MCG/KG/MIN PRN Reason: Agitation Last Admin: 01/18/18 03:30 Dose: 35 mcg/kg/min, 19.432 mls/hr Meropenem 1 gm/ Sodium (Chloride) 100 mls @ 100 mls/hr IVPB Q8H [facility]JO PRN Reason: Protocol Last Admin: 01/18/18 07:46 Dose: 100 mls/hr Insulin Aspart (Novolog) 0 unit SC Q6H [facility] PRN Reason: Protocol Last Admin: 01/18/18 05:05 Dose: Not Given Potassium Chloride (Klor-Con 10) 10 meq PO BRK [facility] Last Admin: 01/18/18 07:47 Dose: 10 meq Rosuvastatin Calcium (Crestor) 5 mg PO HS [facility] Last Admin: 01/17/18 21:03 Dose: 5 mg Tamsulosin HCl (Flomax) 0.4 mg PO DAILY [facility] Last Admin: 01/18/18 09:34 Dose: 0.4 mg - Labs Labs: 01/18/18 06:19 01/18/18 06:16 PT 15.7 SECONDS (9.7-12.2) H 01/13/18 15:13 INR 1.4 01/13/18 15:13 APTT 92 SECONDS (21-34) H D 01/16/18 06:14 - Constitutional Appears: No Acute Distress - Head Exam Head Exam: ATRAUMATIC - Eye Exam Eye Exam: EOMI Additional comments: Eye movements with sternum rub - Respiratory Exam Respiratory Exam: NORMAL BREATHING PATTERN Additional comments: Currently on ciPAP - Cardiovascular Exam Cardiovascular Exam: REGULAR RHYTHM - GI/Abdominal Exam GI & Abdominal Exam: Soft, Normal Bowel Sounds - Extremities Exam Additional comments: Right foot slightly bigger in size than the left foot; non-pitting Assessment and Plan (1) Atrial fibrillation with rapid ventricular response Assessment & Plan: Currently not on lopressor due to bradycardia Currently not in atrial fibrillation Echo: Suboptimal study but read as normal as per second opinion Status: Acute (2) SVT (supraventricular tachycardia) Assessment & Plan: Resolved Intermittent bradycardia Amiodarone discontinued Status: Acute (3) Sepsis Assessment & Plan: Sepsis on admission, resolved: Afebrile for > 48 hours, WBC trending down UA/UC positive for UTI UC: Proteus Mirabilis, enterococcus faecalis BC: Negative Meropenem 1gm IV Q8H Status: Acute (4) D-dimer, elevated Assessment & Plan: D-dimer : [address]: Not completed due to patient's conditionC Venous Doppler: Negative DVT ( RLE) Heparin drip initiated: Discontinued by ICU team Status: Acute (5) Prophylactic measure Assessment & Plan: DVT: Heparin 5,000 units SC Q8H GI: Pepcid 20mg GT daily Status: Acute <Aaron Blanco - Last Filed: 01/18/18 21:34> Objective - Vital Signs/Intake and Output Vital Signs (last 24 hours): Temp Pulse Resp BP Pulse Ox 97.9 F 58 L 15 140/74 98 01/18/18 20:00 01/18/18 21:00 01/18/18 21:00 01/18/18 20:07 01/18/18 21:00 Intake and Output: 01/18/18 01/19/18 18:59 06:59 Intake Total 1454.4 48.8 Output Total 1500 125 Balance -45.6 -76.2 - Medications Medications: Current Medications Albuterol/Ipratropium (Duoneb 3 Mg/0.5 Mg (3 Ml) Ud) 3 ml INH RQ4 [facility] Last Admin: 01/18/18 19:09 Dose: 3 ml Aspirin (Aspirin Chewable) 81 mg PO DAILY [facility] Last Admin: 01/18/18 09:34 Dose: 81 mg Famotidine (Pepcid) 20 mg GT DAILY [facility] Last Admin: 01/18/18 09:34 Dose: 20 mg Heparin Sodium (Porcine) (Heparin) 5,000 units SC Q8 [facility] Last Admin: 01/18/18 13:08 Dose: 5,000 units Hydrocortisone Sodium Succinate (Solu-Cortef) 100 mg IV Q8H [facility] Last Admin: 01/18/18 16:57 Dose: 100 mg Propofol (Diprivan) 1,000 mg in 100 mls @ 2.776 mls/hr IV .Q24H PRN; Protocol; 5 MCG/KG/MIN PRN Reason: Agitation Last Titration: 01/18/18 16:00 Dose: 25 mcg/kg/min, 13.88 mls/hr Meropenem 1 gm/ Sodium (Chloride) 100 mls @ 100 mls/hr IVPB Q8H [facility] PRN Reason: Protocol Last Admin: 01/18/18 16:56 Dose: 100 mls/hr Vancomycin/Sodium Chloride (Vancomycin 1 Gm/Ns 200 Ml) 1 gm in 200 mls @ 133 mls/hr IVPB Q12H [facility] PRN Reason: Protocol Stop: 01/23/18 21:01 Insulin Aspart (Novolog) 0 unit SC Q6H [facility] PRN Reason: Protocol Last Admin: 01/18/18 18:36 Dose: 2 units Potassium Chloride (Klor-Con 10) 10 meq PO BRK [facility] Last Admin: 01/18/18 07:47 Dose: 10 meq Rosuvastatin Calcium (Crestor) 5 mg PO HS [facility] Last Admin: 01/17/18 21:03 Dose: 5 mg Tamsulosin HCl (Flomax) 0.4 mg PO DAILY [facility] Last Admin: 01/18/18 09:34 Dose: 0.4 mg - Labs Labs: 01/18/18 06:19 01/18/18 06:16 PT 15.7 SECONDS (9.7-12.2) H 01/13/18 15:13 INR 1.4 01/13/18 15:13 APTT 92 SECONDS (21-34) H D 01/16/18 06:14 Assessment and Plan - Assessment and Plan (Free Text) Assessment: Patient seen and evaluated personally by n[place] Plan of care d/w the resident and as documented
--- NOTE | 2018-01-18 18:05 | CP.PCM.PN ---
Subjective - Date & Time of Evaluation Date of Evaluation: 01/18/18 Time of Evaluation: 10:20 - Subjective Subjective: patient seen and examined Remains intubated but tolerating CPAP Objective - Vital Signs/Intake and Output Vital Signs (last 24 hours): Temp Pulse Resp BP Pulse Ox 98.2 F 52 L 16 124/59 L 100 01/18/18 16:00 01/18/18 17:00 01/18/18 17:00 01/18/18 16:07 01/18/18 17:00 Intake and Output: 01/18/18 01/18/18 06:59 18:59 Intake Total 897.3 1405.6 Output Total 1000 1075 Balance -102.7 330.6 - Medications Medications: Current Medications Albuterol/Ipratropium (Duoneb 3 Mg/0.5 Mg (3 Ml) Ud) 3 ml INH RQ4 [facility] Last Admin: 01/18/18 15:44 Dose: 3 ml Aspirin (Aspirin Chewable) 81 mg PO DAILY [facility] Last Admin: 01/18/18 09:34 Dose: 81 mg Famotidine (Pepcid) 20 mg GT DAILY [facility] Last Admin: 01/18/18 09:34 Dose: 20 mg Heparin Sodium (Porcine) (Heparin) 5,000 units SC Q8 [facility] Last Admin: 01/18/18 13:08 Dose: 5,000 units Hydrocortisone Sodium Succinate (Solu-Cortef) 100 mg IV Q8H [facility] Last Admin: 01/18/18 16:57 Dose: 100 mg Propofol (Diprivan) 1,000 mg in 100 mls @ 2.776 mls/hr IV .Q24H PRN; Protocol; 5 MCG/KG/MIN PRN Reason: Agitation Last Titration: 01/18/18 16:00 Dose: 25 mcg/kg/min, 13.88 mls/hr Meropenem 1 gm/ Sodium (Chloride) 100 mls @ 100 mls/hr IVPB Q8H [facility] PRN Reason: Protocol Last Admin: 01/18/18 16:56 Dose: 100 mls/hr Insulin Aspart (Novolog) 0 unit SC Q6H [facility] PRN Reason: Protocol Last Admin: 01/18/18 11:43 Dose: 2 units Potassium Chloride (Klor-Con 10) 10 meq PO BRK [facility] Last Admin: 01/18/18 07:47 Dose: 10 meq Rosuvastatin Calcium (Crestor) [address] [facility] Last Admin: 01/17/18 21:03 Dose: 5 mg Tamsulosin HCl (Flomax) 0.4 mg PO DAILY [facility] Last Admin: 01/18/18 09:34 Dose: 0.4 mg - Labs Labs: 01/18/18 06:19 01/18/18 06:16 PT 15.7 SECONDS (9.7-12.2) H 01/13/18 15:13 INR 1.4 01/13/18 15:13 APTT 92 SECONDS (21-34) H D 01/16/18 06:14 - Head Exam Head Exam: ATRAUMATIC, NORMOCEPHALIC - ENT Exam ENT Exam: Mucous Membranes Moist - Respiratory Exam Respiratory Exam: Decreased Breath Sounds - Cardiovascular Exam Cardiovascular Exam: REGULAR RHYTHM Assessment and Plan (1) Acute respiratory failure with hypoxemia Assessment & Plan: WEAN TO EXTUBATE Status: Acute (2) Atrial fibrillation with rapid ventricular response Status: Acute (3) SVT (supraventricular tachycardia) Status: Acute (4) UTI (urinary tract infection) Status: Acute (5) COPD (chronic obstructive pulmonary disease) Status: Acute
[2018-01-18] MEDS ORDERED: Potassium Chloride 20 mEq ER Tab PO SCH (18:15)
--- NOTE | 2018-01-18 19:09 | CP.PCM.PN ---
Subjective - Date & Time of Evaluation Date of Evaluation: 01/18/18 Time of Evaluation: 12:30 - Subjective Subjective: clinically same Objective - Vital Signs/Intake and Output Vital Signs (last 24 hours): Temp Pulse Resp BP Pulse Ox 98.2 F 56 L 18 158/86 H 98 01/18/18 16:00 01/18/18 18:07 01/18/18 18:07 01/18/18 18:07 01/18/18 18:07 Intake and Output: 01/18/18 01/19/18 18:59 06:59 Intake Total 1419.4 Output Total 1500 Balance -80.6 - Medications Medications: Current Medications Albuterol/Ipratropium (Duoneb 3 Mg/0.5 Mg (3 Ml) Ud) 3 ml INH RQ4 [facility] Last Admin: 01/18/18 15:44 Dose: 3 ml Aspirin (Aspirin Chewable) 81 mg PO DAILY [facility] Last Admin: 01/18/18 09:34 Dose: 81 mg Famotidine (Pepcid) 20 mg GT DAILY [facility] Last Admin: 01/18/18 09:34 Dose: 20 mg Heparin Sodium (Porcine) (Heparin) 5,000 units SC Q8 [facility] Last Admin: 01/18/18 13:08 Dose: 5,000 units Hydrocortisone Sodium Succinate (Solu-Cortef) 100 mg IV Q8H [facility] Last Admin: 01/18/18 16:57 Dose: 100 mg Propofol (Diprivan) 1,000 mg in 100 mls @ 2.776 mls/hr IV .Q24H PRN; Protocol; 5 MCG/KG/MIN PRN Reason: Agitation Last Titration: 01/18/18 16:00 Dose: 25 mcg/kg/min, 13.88 mls/hr Meropenem 1 gm/ Sodium (Chloride) 100 mls @ 100 mls/hr IVPB Q8H [facility] PRN Reason: Protocol Last Admin: 01/18/18 16:56 Dose: 100 mls/hr Insulin Aspart (Novolog) 0 unit SC Q6H [facility] PRN Reason: Protocol Last Admin: 01/18/18 18:36 Dose: 2 units Potassium Chloride (Klor-Con 10) 10 meq PO BRK [facility] Last Admin: 01/18/18 07:47 Dose: 10 meq Potassium Chloride (K-Dur 20 Meq Er Tab) 20 meq PO BRK [facility] Rosuvastatin Calcium (Crestor) 5 mg PO HS [facility] Last Admin: 01/17/18 21:03 Dose: 5 mg Tamsulosin HCl (Flomax) 0.4 mg PO DAILY [facility] Last Admin: 01/18/18 09:34 Dose: 0.4 mg - Labs Labs: 01/18/18 06:19 01/18/18 06:16 PT 15.7 SECONDS (9.7-12.2) H 01/13/18 15:13 INR 1.4 01/13/18 15:13 APTT 92 SECONDS (21-34) H D 01/16/18 06:14 - Constitutional Appears: Well - Head Exam Head Exam: ATRAUMATIC, NORMAL INSPECTION, NORMOCEPHALIC - Eye Exam Eye Exam: EOMI, Normal appearance, PERRL Pupil Exam: NORMAL ACCOMODATION, PERRL - ENT Exam ENT Exam: Mucous Membranes Moist, Normal Exam - Neck Exam Neck Exam: Full ROM, Normal Inspection. absent: Lymphadenopathy - Respiratory Exam Respiratory Exam: Decreased Breath Sounds - Cardiovascular Exam Cardiovascular Exam: REGULAR RHYTHM, +S1, +S2 - GI/Abdominal Exam GI & Abdominal Exam: Soft, Diminished Bowel Sounds - Rectal Exam Rectal Exam: Deferred Assessment and Plan (1) Atrial fibrillation Status: Acute (2) Fever Status: Acute (3) Mental status alteration Status: Acute (4) UTI (urinary tract infection) Status: Acute (5) BPH (benign prostatic hyperplasia) Status: Acute (6) COPD (chronic obstructive pulmonary disease) Status: Acute (7) Congestive heart failure (CHF) Status: Acute (8) GERD (gastroesophageal reflux disease) Status: Acute (9) Hematuria Status: Acute (10) Hypertension Status: Acute (11) Pneumonia Status: Acute (12) Urinary retention Status: Acute
--- NOTE | 2018-01-18 20:26 | CP.PCM.PN ---
Subjective - Date & Time of Evaluation Date of Evaluation: 01/18/18 Time of Evaluation: 15:30 - Subjective Subjective: dictated Objective - Vital Signs/Intake and Output Vital Signs (last 24 hours): Temp Pulse Resp BP Pulse Ox 98.2 F 66 17 154/96 H 97 01/18/18 16:00 01/18/18 19:00 01/18/18 19:00 01/18/18 19:07 01/18/18 19:00 Intake and Output: 01/18/18 01/19/18 18:59 06:59 Intake Total 1454.4 48.8 Output Total 1500 125 Balance -45.6 -76.2 - Medications Medications: Current Medications Albuterol/Ipratropium (Duoneb 3 Mg/0.5 Mg (3 Ml) Ud) 3 ml INH RQ4 [facility] Last Admin: 01/18/18 19:09 Dose: 3 ml Aspirin (Aspirin Chewable) 81 mg PO DAILY [facility] Last Admin: 01/18/18 09:34 Dose: 81 mg Famotidine (Pepcid) 20 mg GT DAILY [facility] Last Admin: 01/18/18 09:34 Dose: 20 mg Heparin Sodium (Porcine) (Heparin) 5,000 units SC Q8 [facility] Last Admin: 01/18/18 13:08 Dose: 5,000 units Hydrocortisone Sodium Succinate (Solu-Cortef) 100 mg IV Q8H [facility] Last Admin: 01/18/18 16:57 Dose: 100 mg Propofol (Diprivan) 1,000 mg in 100 mls @ 2.776 mls/hr IV .Q24H PRN; Protocol; 5 MCG/KG/MIN PRN Reason: Agitation Last Titration: 01/18/18 16:00 Dose: 25 mcg/kg/min, 13.88 mls/hr Meropenem 1 gm/ Sodium (Chloride) 100 mls @ 100 mls/hr IVPB Q8H [facility] PRN Reason: Protocol Last Admin: 01/18/18 16:56 Dose: 100 mls/hr Insulin Aspart (Novolog) 0 unit SC Q6H [facility] PRN Reason: Protocol Last Admin: 01/18/18 18:36 Dose: 2 units Potassium Chloride (Klor-Con 10) 10 meq PO BRK [facility] Last Admin: 01/18/18 07:47 Dose: 10 meq Rosuvastatin Calcium (Crestor) 5 mg PO HS [facility] Last Admin: 01/17/18 21:03 Dose: 5 mg Tamsulosin HCl (Flomax) 0.4 mg PO DAILY [facility] Last Admin: 01/18/18 09:34 Dose: 0.4 mg - Labs Labs: 01/18/18 06:19 01/18/18 06:16 PT 15.7 SECONDS (9.7-12.2) H 01/13/18 15:13 INR 1.4 01/13/18 15:13 APTT 92 SECONDS (21-34) H D 01/16/18 06:14
[2018-01-18] MEDS: Vancomycin 1 gm/NS 200 ml 1 GM/200 ML BAG IVPB SCH (21:42)
[2018-01-19] MEDS: Meropenem 1 GM in Sodium Chloride 0.9% 100 ML IVPB SCH ×3 (00:21→16:28)
[2018-01-19] MEDS: (Novolog) Insulin Aspart, Recombinant 100 u/ml 10 ml vial SC SCH ×5 (00:23→23:14)
--- NOTE | 2018-01-19 00:32 | PN ---
DATE: 01/18/2018 SUBJECTIVE: The patient remains on the ventilator. He is intubated. He remains on the vent. He is sedated. Unable to get much out of him. PHYSICAL EXAMINATION: VITAL SIGNS: He remains afebrile. Heart rate is still on the lee ann side. Blood pressure is 124/73. Respirations are on the vent. NECK: Supple. LUNGS: Clear. HEART: S1, S2 are regular. ABDOMEN: Soft, nontender. No guarding, no rigidity present. EXTREMITIES: Have edema and stasis dermatitis. ASSESSMENT AND PLAN: His urine culture last was Proteus and Enterococcus, and this Proteus and Enterococcus is vancomycin sensitive and meropenem, so he should be on vancomycin and meropenem. He did have Pseudomonas in the sputum. The Pseudomonas in the sputum is meropenem sensitive. His labs show creatinine is 0.8, so we will place him on vancomycin. I was away and Dr. Magaña was following at this time. We will put him on vancomycin 1 g a day, and we will follow. He will also be on meropenem and remains with respiratory failure and has multiple resistant organisms in the sputum as well as in the urine. We will follow. Juan Duong MD
[2018-01-19] MEDS: Albuterol-Ipratrop 3 mg / 0.5 (3 ml) UD INH SCH ×6 (00:34→19:33)
[2018-01-19] MEDS: Propofol 10 mg/ml 1,000 MG/100 ML VIAL IV PRN ×3 (01:58→14:44)
[2018-01-19 05:52] LABS: ABG ALLEN TEST POS; ARTERIAL BLOOD GAS HCO3 40.9 mmol/L (21-28); ARTERIAL BLOOD GAS HEMOGLOBIN 10.9 g/dL (11.7-17.4); ARTERIAL BLOOD GAS O2 SAT 96.2 % (95-98); ARTERIAL BLOOD GAS PCO2 60 mm/Hg (35-45); ARTERIAL BLOOD GAS PO2 74 mm/Hg (80-100); ARTERIAL BLOOD GAS TCO2 48.6 mmol/L (22-28)
[2018-01-19 06:30] LABS: BASO % 0.1 % (0.0-2.0); HEMOGLOBIN 10.4 g/dL (12.0-18.0); LYMPH # 2.2 K/uL (1.0-4.3); MEAN CELL VOLUME 80.9 fL (80.0-94.0); MEAN CORPUSCULAR HEMOGLOBIN 25.7 pg (27.0-31.0); MEAN CORPUSCULAR HGB CONC 31.8 g/dL (33.0-37.0); MEAN PLATELET VOLUME 7.8 fL (7.2-11.7); MONO % 6.5 % (0.0-10.0); NEUT # 11.5 K/uL (1.8-7.0); NEUT % 78.4 % (50.0-75.0); NRBC % 0.3 % (0.0-2.0); PLATELET COUNT 228 K/uL (130-400); RBC 4.05 Mil/uL (4.40-5.90); RED CELL DISTRIBUTION WIDTH 17.7 % (11.5-14.5); WHITE BLOOD COUNT 14.7 K/uL (4.8-10.8)
[2018-01-19 07:06] LABS: ALT/SGPT 55 U/L (21-72); AST/SGOT 50 U/L (17-59); BLOOD UREA NITROGEN 37 mg/dL (9-20); GFR NON-AFRICAN AMERICAN > 60
[2018-01-19] MEDS ORDERED: Potassium Chloride 20 mEq/15 ml LIQ UD PO ONE (07:45)
[2018-01-19] MEDS: Potassium Chloride 10 mEq ER Tab PO SCH (08:14)
[2018-01-19] MEDS: Vancomycin 1 gm/NS 200 ml 1 GM/200 ML BAG IVPB SCH ×2 (09:12→21:30)
--- NOTE | 2018-01-19 10:01 | RAD ---
Date of service: 01/19/2018 HISTORY: intubated COMPARISON: No prior. FINDINGS: In situ ETT, tip of which lies approximately 5.9 cm above ze. Re- demonstrated is in situ right-sided PICC line. LUNGS: Re- demonstrated arm mild pulmonary venous congestive changes of with questionable slight improvement of. Bilateral lower lobe alveolar-type infiltrates and bilateral effusions. PLEURA: As above. No pneumothorax apparent. CARDIOVASCULAR: Cardiomegaly. OSSEOUS STRUCTURES: No significant abnormalities. VISUALIZED UPPER ABDOMEN: Normal. OTHER FINDINGS: None. IMPRESSION: Support lines and tubes as above. Re- demonstrated arm mild pulmonary venous congestive changes of with questionable slight improvement of. Bilateral lower lobe alveolar-type infiltrates and bilateral effusions.
--- NOTE | 2018-01-19 10:35 | CP.CCUPN ---
<Yamil Corona - Last Filed: 01/19/18 12:18> CCU Subjective - Physician Review Subjective (Free Text): ICU Progress note Patient seen and examined at bedside. Patient is sedated and intubated. Unable to provide history. Patient to be trialed on CPAP today. CCU Objective - Vital Signs / Intake & Output Vital Signs (Last 4 hours): Vital Signs Temp Pulse Resp BP Pulse Ox 01/19/18 08:00 97.4 F L 57 L 14 150/78 100 01/19/18 07:00 48 L 17 146/73 100 Intake and Output (Last 8hrs): Intake & Output 01/18/18 01/19/18 01/19/18 22:59 06:59 14:59 Intake Total 999.1 634.4 308.6 Output Total 805 615 175 Balance 194.1 19.4 133.6 Weight 195 lb 9.6 oz Intake: IV 98 100 100 Intake, IV Amount 421.1 254.4 38.6 Right Distal Port PICC 121.1 154.4 38.6 Right Proximal Port PICC 300 100 Tube Feeding 280 280 70 Other 200 100 Output: Urine 805 615 175 Urethral (Olivares) 805 615 175 Other: # Bowel Movements 0 0 0 - Physical Exam Head: Positive for: Atraumatic, Normocephalic Mouth: Positive for: Dry, Other (ETT, OGT in place) Nose (External): Positive for: Atraumatic Respiratory/Chest: Positive for: Decreased Breath Sounds. Negative for: Respiratory Distress (Vented) Cardiovascular: Positive for: Regular Rate and Rhythm, Normal S1, S2 Abdomen: Positive for: Normal Bowel Sounds, Other (Olivares draining urine. ). Negative for: Tenderness Upper Extremity: Positive for: Edema (bilateral edema on upper extremities ), Other (PICC line in place) Lower Extremity: Positive for: Edema (Edema of bilateral lower extremities. Unable to palpate DP pulses on LLE secondary to edema. ), Other (Right lower extremity: Doralis pedis pulse present) Neurological: Positive for: Other (Altered, sedated) Psychiatric: Positive for: Other (Altered) - Medications Active Medications: Active Medications Generic Name Dose Route Start Last Admin Trade Name Freq PRN Reason Stop Dose Admin Albuterol/Ipratropium 3 ml 01/15/18 12:00 09/11/18 07:57 Duoneb 3 Mg/0.5 Mg (3 Ml) Ud INH 3 ml RQ4 JOJO Administration Aspirin 81 mg 01/18/18 10:00 01/18/18 09:34 Aspirin Chewable PO 81 mg DAILY JOJO Administration Famotidine 20 mg 01/17/18 10:00 01/18/18 09:34 Pepcid GT 20 mg DAILY JOJO Administration Heparin Sodium (Porcine) 5,000 units 01/16/18 14:00 01/19/18 06:30 Heparin SC 5,000 units Q8 JOOJ Administration Hydrocortisone Sodium Succinate 50 mg 01/19/18 10:00 Solu-Cortef IV Q8H JOJO Propofol 1,000 mg in 100 mls @ 2.776 mls/hr 01/12/18 19:21 01/19/18 07:42 Diprivan IV 34.76 mcg/kg/min .Q24H PRN 19.3 mls/hr Agitation Administration Protocol 5 MCG/KG/MIN Meropenem 1 gm/ Sodium 100 mls @ 100 mls/hr 01/15/18 00:00 01/19/18 08:12 Chloride IVPB 100 mls/hr Q8H JOJO Administration Protocol Vancomycin/Sodium Chloride 1 gm in 200 mls @ 133 mls/hr 01/18/18 21:00 09:12 Vancomycin 1 Gm/Ns 200 Ml IVPB 01/23/18 21:01 133 mls/hr Q12H JOJO Administration Protocol Insulin Aspart 0 unit 01/15/18 12:00 01/19/18 06:31 Novolog SC Not Given Q6H JOJO Protocol Potassium Chloride 10 meq 01/18/18 08:00 01/19/18 08:14 Klor-Con 10 PO 10 meq BRK JOJO Administration Rosuvastatin Calcium 5 mg 01/17/18 22:00 01/18/18 21:43 Crestor PO 5 mg HS JOJO Administration Tamsulosin HCl 0.4 mg 01/17/18 11:00 01/18/18 09:34 Flomax PO 0.4 mg DAILY JOJO Administration - Patient Studies Lab Studies: Microbiology Studies 01/14/18 10:48 Blood Culture - Preliminary Blood-Thru Central Line NO GROWTH AFTER 4 DAYS 01/14/18 10:48 Blood Culture - Preliminary Blood-Thru Central Line NO GROWTH AFTER 4 DAYS Lab Studies 01/19/18 01/19/18 01/19/18 Range/Units 06:19 06:17 05:30 WBC 14.7 H (4.8-10.8) K/uL RBC 4.05 L (4.40-5.90) Mil/uL Hgb 10.4 L (12.0-18.0) g/dL Hct 32.7 L (35.0-51.0) % MCV 80.9 (80.0-94.0) fL MCH 25.7 L (27.0-31.0) pg MCHC 31.8 L (33.0-37.0) g/dL RDW 17.7 H (11.5-14.5) % Plt Count 228 (130-400) K/uL MPV 7.8 (7.2-11.7) fL Neut % (Auto) 78.4 H (50.0-75.0) % Lymph % (Auto) 15.0 L (20.0-40.0) % Gonzales % (Auto) 6.5 (0.0-10.0) % Eos % (Auto) 0.0 (0.0-4.0) % Baso % (Auto) 0.1 (0.0-2.0) % Neut # (Auto) 11.5 H (1.8-7.0) K/uL Lymph # (Auto) 2.2 (1.0-4.3) K/uL Gonzales # (Auto) 1.0 H (0.0-0.8) K/uL Eos # (Auto) 0.0 (0.0-0.7) K/uL Baso # (Auto) 0.0 (0.0-0.2) K/uL Puncture Site R rad pCO2 60 H (35-45) mm/Hg pO2 74 L (80-100) mm/Hg HCO3 40.9 H* (21-28) mmol/L ABG pH 7.50 H (7.35-7.45) ABG Total CO2 48.6 H (22-28) mmol/L ABG O2 Saturation 96.2 (95-98) % ABG Base Excess 20.6 H (-2.0-3.0) mmol/L ABG Hemoglobin 10.9 L (11.7-17.4) g/dL ABG Carboxyhemoglobin 1.5 (0.5-1.5) % POC ABG HHb (Measured) 3.7 (0.0-5.0) % ABG Methemoglobin 1.2 (0.0-3.0) % Aníbal Test Pos A-a O2 Difference 136.0 mm/Hg Respiratory Index 1.8 Hgb O2 Saturation 93.6 L (95.0-98.0) % Mechanical Rate 16 FiO2 40.0 % Tidal Volume 440 PEEP 5 Crit Value Called To Kathy franklin rn Crit Value Called By Tamra downing rt Crit Value Read Back Y Blood Gas Notified Time 552 Sodium 147 (132-148) mmol/L Potassium 3.1 L (3.6-5.2) mmol/L Chloride 95 L (98-107) mmol/L Carbon Dioxide 42 H* (22-30) mmol/L Anion Gap 13 (10-20) BUN 37 H (9-20) mg/dL Creatinine 0.9 (0.8-1.5) mg/dL Est GFR ( Amer) > 60 Est GFR (Non-Af Amer) > 60 POC Glucose (mg/dL) (65-110) mg/dL Random Glucose 157 H (75-110) mg/dL Calcium 8.0 L (8.6-10.4) mg/dl Phosphorus 3.7 (2.5-4.5) mg/dL Magnesium 2.0 (1.6-2.3) mg/dL Total Bilirubin 0.5 (0.2-1.3) mg/dL AST 50 (17-59) U/L ALT 55 (21-72) U/L Alkaline Phosphatase 119 (38-126) U/L Total Protein 6.0 L (6.3-8.3) g/dL Albumin 3.0 L (3.5-5.0) g/dL Globulin 3.0 (2.2-3.9) gm/dL Albumin/Globulin Ratio 1.0 (1.0-2.1) 01/18/18 01/18/18 01/18/18 Range/Units 23:27 17:23 11:19 WBC (4.8-10.8) K/uL RBC (4.40-5.90) Mil/uL Hgb (12.0-18.0) g/dL Hct (35.0-51.0) % MCV (80.0-94.0) fL MCH (27.0-31.0) pg MCHC (33.0-37.0) g/dL RDW (11.5-14.5) % Plt Count (130-400) K/uL MPV (7.2-11.7) fL Neut % (Auto) (50.0-75.0) % Lymph % (Auto) (20.0-40.0) % Gonzales % (Auto) (0.0-10.0) % Eos % (Auto) (0.0-4.0) % Baso % (Auto) (0.0-2.0) % Neut # (Auto) (1.8-7.0) K/uL Lymph # (Auto) (1.0-4.3) K/uL Gonzales # (Auto) (0.0-0.8) K/uL Eos # (Auto) (0.0-0.7) K/uL Baso # (Auto) (0.0-0.2) K/uL Puncture Site pCO2 (35-45) mm/Hg pO2 (80-100) mm/Hg HCO3 (21-28) mmol/L ABG pH (7.35-7.45) ABG Total CO2 (22-28) mmol/L ABG O2 Saturation (95-98) % ABG Base Excess (-2.0-3.0) mmol/L ABG Hemoglobin (11.7-17.4) g/dL ABG Carboxyhemoglobin (0.5-1.5) % POC ABG HHb (Measured) (0.0-5.0) % ABG Methemoglobin (0.0-3.0) % Aníbal Test A-a O2 Difference mm/Hg Respiratory Index Hgb O2 Saturation (95.0-98.0) % Mechanical Rate FiO2 % Tidal Volume PEEP Crit Value Called To Crit Value Called By Crit Value Read Back Blood Gas Notified Time Sodium (132-148) mmol/L Potassium (3.6-5.2) mmol/L Chloride (98-107) mmol/L Carbon Dioxide (22-30) mmol/L Anion Gap (10-20) BUN (9-20) mg/dL Creatinine (0.8-1.5) mg/dL Est GFR ( Amer) Est GFR (Non-Af Amer) POC Glucose (mg/dL) 158 H 169 H 162 H (65-110) mg/dL Random Glucose (75-110) mg/dL Calcium (8.6-10.4) mg/dl Phosphorus (2.5-4.5) mg/dL Magnesium (1.6-2.3) mg/dL Total Bilirubin (0.2-1.3) mg/dL AST (17-59) U/L ALT (21-72) U/L Alkaline Phosphatase (38-126) U/L Total Protein (6.3-8.3) g/dL Albumin (3.5-5.0) g/dL Globulin (2.2-3.9) gm/dL Albumin/Globulin Ratio (1.0-2.1) Laboratory Results - last 24 hr 01/18/18 01/18/18 01/18/18 11:19 17:23 23:27 WBC RBC Hgb Hct MCV MCH MCHC RDW Plt Count MPV Neut % (Auto) Lymph % (Auto) Gonzales % (Auto) Eos % (Auto) Baso % (Auto) Neut # (Auto) Lymph # (Auto) Gonzales # (Auto) Eos # (Auto) Baso # (Auto) Puncture Site pCO2 pO2 HCO3 ABG pH ABG Total CO2 ABG O2 Saturation ABG Base Excess ABG Hemoglobin ABG Carboxyhemoglobin POC ABG HHb (Measured) ABG Methemoglobin Aníbal Test A-a O2 Difference Respiratory Index Hgb O2 Saturation Mechanical Rate FiO2 Tidal Volume PEEP Crit Value Called To Crit Value Called By Crit Value Read Back Blood Gas Notified Time Sodium Potassium Chloride Carbon Dioxide Anion Gap BUN Creatinine Est GFR ( Amer) Est GFR (Non-Af Amer) POC Glucose (mg/dL) 162 H 169 H 158 H Random Glucose Calcium Phosphorus Magnesium Total Bilirubin AST ALT Alkaline Phosphatase Total Protein Albumin Globulin Albumin/Globulin Ratio 01/19/18 01/19/18 01/19/18 05:30 06:17 06:19 WBC 14.7 H RBC 4.05 L Hgb 10.4 L Hct 32.7 L MCV 80.9 MCH 25.7 L MCHC 31.8 L RDW 17.7 H Plt Count 228 MPV 7.8 Neut % (Auto) 78.4 H Lymph % (Auto) 15.0 L Gonzales % (Auto) 6.5 Eos % (Auto) 0.0 Baso % (Auto) 0.1 Neut # (Auto) 11.5 H Lymph # (Auto) 2.2 Gonzales # (Auto) 1.0 H Eos # (Auto) 0.0 Baso # (Auto) 0.0 Puncture Site R rad pCO2 60 H pO2 74 L HCO3 40.9 H* ABG pH 7.50 H ABG Total CO2 48.6 H ABG O2 Saturation 96.2 ABG Base Excess 20.6 H ABG Hemoglobin 10.9 L ABG Carboxyhemoglobin 1.5 POC ABG HHb (Measured) 3.7 ABG Methemoglobin 1.2 Aníbal Test Pos A-a O2 Difference 136.0 Respiratory Index 1.8 Hgb O2 Saturation 93.6 L Mechanical Rate 16 FiO2 40.0 Tidal Volume 440 PEEP 5 Crit Value Called To Kathy franklin rn Crit Value Called By Tamra downing rt Crit Value Read Back Y Blood Gas Notified Time 552 Sodium 147 Potassium 3.1 L Chloride 95 L Carbon Dioxide 42 H* Anion Gap 13 BUN 37 H Creatinine 0.9 Est GFR ( Amer) > 60 Est GFR (Non-Af Amer) > 60 POC Glucose (mg/dL) Random Glucose 157 H Calcium 8.0 L Phosphorus 3.7 Magnesium 2.0 Total Bilirubin 0.5 AST 50 ALT 55 Alkaline Phosphatase 119 Total Protein 6.0 L Albumin 3.0 L Globulin 3.0 Albumin/Globulin Ratio 1.0 Fingerstick Blood Sugar Results: 142 Review of Systems - Review of Systems Systems not reviewed;Unavailable: Intubated Assessment/Plan - Assessment and Plan (Free Text) Assessment: 77 year old male with history of diastolic CHF, COPD, diverticulitis, HTN, peripheral edema, pneumonia who presented from custodial for altered mental status. Patient was found to be hypotensive with leukocytosis. Patient intermittently went into SVT with rate into 180s, has required cardioversion, has been on Amiodarone drip and Amiodarone PO. Currently in SR without Amiodarone. To have CPAP trial today. Plan: Neuro: Altered mental status CT head Mild age related neuro degenerative changes are appreciated which appear age appropriate. No definite acute intracranial findings by standard CT criteria. Follow-up CT or MRI are available if clinically warranted. Sedated with Propofol Cardiovascular Remained in SR in 50s Not on pressors Hx of diastolic CHF proBNP 1370 Troponin 0.0340 ECHO: RV moderately dilated. Moderate TR. PICC line placed ASA 81mg PO Crestor 5mg PO HS [employer] Dr. Blanco consulted, help appreciated Pulmonary CXR No interval pathology noted. Intubated, sedated on Propofol Dopplers negative for clots. D-dimer 3655 Duonebs Q4 Patient noted to be alkalotic today with bicarb 42, likely related to Hydrocortisone. Hydrocortisone decreased to 50mg On CPAP trial today GI Pepcid 20mg Started on NG tube feeds Renal BUN 37 Cr 0.9 I&Os KCL 10mEq PO daily Flomax 0.4mg PO Continue to monitor electrolyte, replete as needed Endo Maintain euglycemia ID White count 14.7 Not febrile currently On Meropenem and Vancomycin UA 3+ LE, 2+ protein 2+ blood moderate bacteria WBC 1186 Blood cultures: proteus, repeat blood cx no growth urine culture Proteus, enterococcus fecalis, Trach aspirate and sputum: pseudomonas aeruginosa Hydrocortisone 50mg IV Q8 ID Dr. Duong consulted, help appreciated Heme/Onc H/H stable PPX: Pepcid, Heparin drip Social: Spoke to patient's son Leonid Malone who stated that he would like to have patient's code status changed to DNR given patient's poor quality of life. Case discussed with Dr. Cannon <Juan C Cannon - Last Filed: 01/19/18 18:32> CCU Subjective - Physician Review Critical Care Time Spent (in minutes): 40 CCU Objective - Vital Signs / Intake & Output Vital Signs (Last 4 hours): Vital Signs Temp Pulse Resp BP Pulse Ox 01/19/18 17:01 67 28 H 117/68 95 01/19/18 16:03 56 L 18 148/81 99 01/19/18 16:00 97.6 F 78 21 97 01/19/18 15:00 55 L 15 138/74 100 Intake and Output (Last 8hrs): Intake & Output 01/19/18 01/19/18 01/19/18 06:59 14:59 22:59 Intake Total 634.4 1101.4 260.8 Output Total 615 650 400 Balance 19.4 451.4 -139.2 Weight 195 lb 9.6 oz Intake: IV 100 200 7 Intake, IV Amount 254.4 421.4 13.8 Right Distal Port PICC 154.4 121.4 13.8 Right Proximal Port PICC 100 300 Tube Feeding 280 280 140 Albumin 100 Other 200 Output: Urine 615 650 400 Urethral (Olivares) 615 650 400 Other: # Bowel Movements 0 0 - Medications Active Medications: Active Medications Generic Name Dose Route Start Last Admin Trade Name Freq PRN Reason Stop Dose Admin Albuterol/Ipratropium 3 ml 01/15/18 12:00 01/19/18 16:16 Duoneb 3 Mg/0.5 Mg (3 Ml) Ud INH 3 ml RQ4 JOJO Administration Aspirin 81 mg 01/18/18 10:00 01/19/18 10:41 Aspirin Chewable PO 81 mg DAILY JOJO Administration Famotidine 20 mg 01/17/18 10:00 01/19/18 10:41 Pepcid GT 20 mg DAILY JOJO Administration Heparin Sodium (Porcine) 5,000 units 01/16/18 14:00 01/19/18 13:42 Heparin SC 5,000 units Q8 JOJO Administration Hydrocortisone Sodium Succinate 50 mg 01/19/18 10:00 01/19/18 10:00 Solu-Cortef IV Not Given Q8H JOJO Propofol 1,000 mg in 100 mls @ 2.776 mls/hr 01/12/18 19:21 01/19/18 15:15 Diprivan IV 0 mcg/kg/min .Q24H PRN 0 mls/hr Agitation Titration Protocol 5 MCG/KG/MIN Meropenem 1 gm/ Sodium 100 mls @ 100 mls/hr 01/15/18 00:00 01/19/18 16:28 Chloride IVPB 100 mls/hr Q8H JOJO Administration Protocol Vancomycin/Sodium Chloride 1 gm in 200 mls @ 133 mls/hr 01/18/18 21:00 09:12 Vancomycin 1 Gm/Ns 200 Ml IVPB 01/23/18 21:01 133 mls/hr Q12H JOJO Administration Protocol Insulin Aspart 0 unit 01/15/18 12:00 01/19/18 12:42 Novolog SC 2 units Q6H JOJO Administration Protocol Potassium Chloride 10 meq 01/18/18 08:00 01/19/18 08:14 Klor-Con 10 PO 10 meq BRK JOJO Administration Rosuvastatin Calcium 5 mg 01/17/18 22:00 01/18/18 21:43 Crestor PO 5 mg HS JOJO Administration Tamsulosin HCl 0.4 mg 01/17/18 11:00 01/19/18 10:41 Flomax PO 0.4 mg DAILY JOJO Administration - Patient Studies Lab Studies: Microbiology Studies 01/18/18 01:56 Urine Culture - Final Urine,Olivares No Growth (<1,000 CFU/ML) 01/14/18 10:48 Blood Culture - Final Blood-Thru Central Line NO GROWTH AFTER 5 DAYS Gram Stain - Final TEST NOT PERFORMED 01/14/18 10:48 Blood Culture - Final Blood-Thru Central Line NO GROWTH AFTER 5 DAYS Gram Stain - Final TEST NOT PERFORMED Lab Studies 01/19/18 01/19/18 01/19/18 Range/Units 17:41 11:10 06:19 WBC 14.7 H (4.8-10.8) K/uL RBC 4.05 L (4.40-5.90) Mil/uL Hgb 10.4 L (12.0-18.0) g/dL Hct 32.7 L (35.0-51.0) % MCV 80.9 (80.0-94.0) fL MCH 25.7 L (27.0-31.0) pg MCHC 31.8 L (33.0-37.0) g/dL RDW 17.7 H (11.5-14.5) % Plt Count 228 (130-400) K/uL MPV 7.8 (7.2-11.7) fL Neut % (Auto) 78.4 H (50.0-75.0) % Lymph % (Auto) 15.0 L (20.0-40.0) % Gonzales % (Auto) 6.5 (0.0-10.0) % Eos % (Auto) 0.0 (0.0-4.0) % Baso % (Auto) 0.1 (0.0-2.0) % Neut # (Auto) 11.5 H (1.8-7.0) K/uL Lymph # (Auto) 2.2 (1.0-4.3) K/uL Gonzales # (Auto) 1.0 H (0.0-0.8) K/uL Eos # (Auto) 0.0 (0.0-0.7) K/uL Baso # (Auto) 0.0 (0.0-0.2) K/uL Neutrophils % (Manual) 72 (50-75) % Band Neutrophils % 8 H (0-2) % Lymphocytes % (Manual) 13 L (20-40) % Monocytes % (Manual) 5 (0-10) % Metamyelocytes % 1 H (0-0) % Myelocytes % 1 H (0-0) % Platelet Estimate Normal (NORMAL) Hypochromasia (manual) Slight Anisocytosis (manual) Slight Target Cells Slight Puncture Site pCO2 (35-45) mm/Hg pO2 (80-100) mm/Hg HCO3 (21-28) mmol/L ABG pH (7.35-7.45) ABG Total CO2 (22-28) mmol/L ABG O2 Saturation (95-98) % ABG Base Excess (-2.0-3.0) mmol/L ABG Hemoglobin (11.7-17.4) g/dL ABG Carboxyhemoglobin (0.5-1.5) % POC ABG HHb (Measured) (0.0-5.0) % ABG Methemoglobin (0.0-3.0) % Aníbal Test A-a O2 Difference mm/Hg Respiratory Index Hgb O2 Saturation (95.0-98.0) % Mechanical Rate FiO2 % Tidal Volume PEEP Crit Value Called To Crit Value Called By Crit Value Read Back Blood Gas Notified Time Sodium (132-148) mmol/L Potassium (3.6-5.2) mmol/L Chloride (98-107) mmol/L Carbon Dioxide (22-30) mmol/L Anion Gap (10-20) BUN (9-20) mg/dL Creatinine (0.8-1.5) mg/dL Est GFR ( Amer) Est GFR (Non-Af Amer) POC Glucose (mg/dL) 144 H 157 H (65-110) mg/dL Random Glucose (75-110) mg/dL Calcium (8.6-10.4) mg/dl Phosphorus (2.5-4.5) mg/dL Magnesium (1.6-2.3) mg/dL Total Bilirubin (0.2-1.3) mg/dL AST (17-59) U/L ALT (21-72) U/L Alkaline Phosphatase (38-126) U/L Total Protein (6.3-8.3) g/dL Albumin (3.5-5.0) g/dL Globulin (2.2-3.9) gm/dL Albumin/Globulin Ratio (1.0-2.1) 01/19/18 01/19/18 01/19/18 Range/Units 06:18 06:17 05:30 WBC (4.8-10.8) K/uL RBC (4.40-5.90) Mil/uL Hgb (12.0-18.0) g/dL Hct (35.0-51.0) % MCV (80.0-94.0) fL MCH (27.0-31.0) pg MCHC (33.0-37.0) g/dL RDW (11.5-14.5) % Plt Count (130-400) K/uL MPV (7.2-11.7) fL Neut % (Auto) (50.0-75.0) % Lymph % (Auto) (20.0-40.0) % Gonzales % (Auto) (0.0-10.0) % Eos % (Auto) (0.0-4.0) % Baso % (Auto) (0.0-2.0) % Neut # (Auto) (1.8-7.0) K/uL Lymph # (Auto) (1.0-4.3) K/uL Gonzales # (Auto) (0.0-0.8) K/uL Eos # (Auto) (0.0-0.7) K/uL Baso # (Auto) (0.0-0.2) K/uL Neutrophils % (Manual) (50-75) % Band Neutrophils % (0-2) % Lymphocytes % (Manual) (20-40) % Monocytes % (Manual) (0-10) % Metamyelocytes % (0-0) % Myelocytes % (0-0) % Platelet Estimate (NORMAL) Hypochromasia (manual) Anisocytosis (manual) Target Cells Puncture Site R rad pCO2 60 H (35-45) mm/Hg pO2 74 L (80-100) mm/Hg HCO3 40.9 H* (21-28) mmol/L ABG pH 7.50 H (7.35-7.45) ABG Total CO2 48.6 H (22-28) mmol/L ABG O2 Saturation 96.2 (95-98) % ABG Base Excess 20.6 H (-2.0-3.0) mmol/L ABG Hemoglobin 10.9 L (11.7-17.4) g/dL ABG Carboxyhemoglobin 1.5 (0.5-1.5) % POC ABG HHb (Measured) 3.7 (0.0-5.0) % ABG Methemoglobin 1.2 (0.0-3.0) % Aníbal Test Pos A-a O2 Difference 136.0 mm/Hg Respiratory Index 1.8 Hgb O2 Saturation 93.6 L (95.0-98.0) % Mechanical Rate 16 FiO2 40.0 % Tidal Volume 440 PEEP 5 Crit Value Called To Kathy franklin rn Crit Value Called By Tamra downing rt Crit Value Read Back Y Blood Gas Notified Time 552 Sodium 147 (132-148) mmol/L Potassium 3.1 L (3.6-5.2) mmol/L Chloride 95 L (98-107) mmol/L Carbon Dioxide 42 H* (22-30) mmol/L Anion Gap 13 (10-20) BUN 37 H (9-20) mg/dL Creatinine 0.9 (0.8-1.5) mg/dL Est GFR ( Amer) > 60 Est GFR (Non-Af Amer) > 60 POC Glucose (mg/dL) 142 H (65-110) mg/dL Random Glucose 157 H (75-110) mg/dL Calcium 8.0 L (8.6-10.4) mg/dl Phosphorus 3.7 (2.5-4.5) mg/dL Magnesium 2.0 (1.6-2.3) mg/dL Total Bilirubin 0.5 (0.2-1.3) mg/dL AST 50 (17-59) U/L ALT 55 (21-72) U/L Alkaline Phosphatase 119 (38-126) U/L Total Protein 6.0 L (6.3-8.3) g/dL Albumin 3.0 L (3.5-5.0) g/dL Globulin 3.0 (2.2-3.9) gm/dL Albumin/Globulin Ratio 1.0 (1.0-2.1) 01/18/18 Range/Units 23:27 WBC (4.8-10.8) K/uL RBC (4.40-5.90) Mil/uL Hgb (12.0-18.0) g/dL Hct (35.0-51.0) % MCV (80.0-94.0) fL MCH (27.0-31.0) pg MCHC (33.0-37.0) g/dL RDW (11.5-14.5) % Plt Count (130-400) K/uL MPV (7.2-11.7) fL Neut % (Auto) (50.0-75.0) % Lymph % (Auto) (20.0-40.0) % Gonzales % (Auto) (0.0-10.0) % Eos % (Auto) (0.0-4.0) % Baso % (Auto) (0.0-2.0) % Neut # (Auto) (1.8-7.0) K/uL Lymph # (Auto) (1.0-4.3) K/uL Gonzales # (Auto) (0.0-0.8) K/uL Eos # (Auto) (0.0-0.7) K/uL Baso # (Auto) (0.0-0.2) K/uL Neutrophils % (Manual) (50-75) % Band Neutrophils % (0-2) % Lymphocytes % (Manual) (20-40) % Monocytes % (Manual) (0-10) % Metamyelocytes % (0-0) % Myelocytes % (0-0) % Platelet Estimate (NORMAL) Hypochromasia (manual) Anisocytosis (manual) Target Cells Puncture Site pCO2 (35-45) mm/Hg pO2 (80-100) mm/Hg HCO3 (21-28) mmol/L ABG pH (7.35-7.45) ABG Total CO2 (22-28) mmol/L ABG O2 Saturation (95-98) % ABG Base Excess (-2.0-3.0) mmol/L ABG Hemoglobin (11.7-17.4) g/dL ABG Carboxyhemoglobin (0.5-1.5) % POC ABG HHb (Measured) (0.0-5.0) % ABG Methemoglobin (0.0-3.0) % Aníbal Test A-a O2 Difference mm/Hg Respiratory Index Hgb O2 Saturation (95.0-98.0) % Mechanical Rate FiO2 % Tidal Volume PEEP Crit Value Called To Crit Value Called By Crit Value Read Back Blood Gas Notified Time Sodium (132-148) mmol/L Potassium (3.6-5.2) mmol/L Chloride (98-107) mmol/L Carbon Dioxide (22-30) mmol/L Anion Gap (10-20) BUN (9-20) mg/dL Creatinine (0.8-1.5) mg/dL Est GFR ( Amer) Est GFR (Non-Af Amer) POC Glucose (mg/dL) 158 H (65-110) mg/dL Random Glucose (75-110) mg/dL Calcium (8.6-10.4) mg/dl Phosphorus (2.5-4.5) mg/dL Magnesium (1.6-2.3) mg/dL Total Bilirubin (0.2-1.3) mg/dL AST (17-59) U/L ALT (21-72) U/L Alkaline Phosphatase (38-126) U/L Total Protein (6.3-8.3) g/dL Albumin (3.5-5.0) g/dL Globulin (2.2-3.9) gm/dL Albumin/Globulin Ratio (1.0-2.1) Laboratory Results - last 24 hr 01/18/18 01/19/18 01/19/18 23:27 05:30 06:17 WBC RBC Hgb Hct MCV MCH MCHC RDW Plt Count MPV Neut % (Auto) Lymph % (Auto) Gonzales % (Auto) Eos % (Auto) Baso % (Auto) Neut # (Auto) Lymph # (Auto) Gonzales # (Auto) Eos # (Auto) Baso # (Auto) Neutrophils % (Manual) Band Neutrophils % Lymphocytes % (Manual) Monocytes % (Manual) Metamyelocytes % Myelocytes % Platelet Estimate Hypochromasia (manual) Anisocytosis (manual) Target Cells Puncture Site R rad pCO2 60 H pO2 74 L HCO3 40.9 H* ABG pH 7.50 H ABG Total CO2 48.6 H ABG O2 Saturation 96.2 ABG Base Excess 20.6 H ABG Hemoglobin 10.9 L ABG Carboxyhemoglobin 1.5 POC ABG HHb (Measured) 3.7 ABG Methemoglobin 1.2 Aníbal Test Pos A-a O2 Difference 136.0 Respiratory Index 1.8 Hgb O2 Saturation 93.6 L Mechanical Rate 16 FiO2 40.0 Tidal Volume 440 PEEP 5 Crit Value Called To Kathy franklin rn Crit Value Called By Tamra downing rt Crit Value Read Back Y Blood Gas Notified Time 552 Sodium 147 Potassium 3.1 L Chloride 95 L Carbon Dioxide 42 H* Anion Gap 13 BUN 37 H Creatinine 0.9 Est GFR ( Amer) > 60 Est GFR (Non-Af Amer) > 60 POC Glucose (mg/dL) 158 H Random Glucose 157 H Calcium 8.0 L Phosphorus 3.7 Magnesium 2.0 Total Bilirubin 0.5 AST 50 ALT 55 Alkaline Phosphatase 119 Total Protein 6.0 L Albumin 3.0 L Globulin 3.0 Albumin/Globulin Ratio 1.0 01/19/18 01/19/18 01/19/18 06:18 06:19 11:10 WBC 14.7 H RBC 4.05 L Hgb 10.4 L Hct 32.7 L MCV 80.9 MCH 25.7 L MCHC 31.8 L RDW 17.7 H Plt Count 228 MPV 7.8 Neut % (Auto) 78.4 H Lymph % (Auto) 15.0 L Gonzales % (Auto) 6.5 Eos % (Auto) 0.0 Baso % (Auto) 0.1 Neut # (Auto) 11.5 H Lymph # (Auto) 2.2 Gonzales # (Auto) 1.0 H Eos # (Auto) 0.0 Baso # (Auto) 0.0 Neutrophils % (Manual) 72 Band Neutrophils % 8 H Lymphocytes % (Manual) 13 L Monocytes % (Manual) 5 Metamyelocytes % 1 H Myelocytes % 1 H Platelet Estimate Normal Hypochromasia (manual) Slight Anisocytosis (manual) Slight Target Cells Slight Puncture Site pCO2 pO2 HCO3 ABG pH ABG Total CO2 ABG O2 Saturation ABG Base Excess ABG Hemoglobin ABG Carboxyhemoglobin POC ABG HHb (Measured) ABG Methemoglobin Aníbal Test A-a O2 Difference Respiratory Index Hgb O2 Saturation Mechanical Rate FiO2 Tidal Volume PEEP Crit Value Called To Crit Value Called By Crit Value Read Back Blood Gas Notified Time Sodium Potassium Chloride Carbon Dioxide Anion Gap BUN Creatinine Est GFR ( Amer) Est GFR (Non-Af Amer) POC Glucose (mg/dL) 142 H 157 H Random Glucose Calcium Phosphorus Magnesium Total Bilirubin AST ALT Alkaline Phosphatase Total Protein Albumin Globulin Albumin/Globulin Ratio 01/19/18 17:41 WBC RBC Hgb Hct MCV MCH MCHC RDW Plt Count MPV Neut % (Auto) Lymph % (Auto) Gonzales % (Auto) Eos % (Auto) Baso % (Auto) Neut # (Auto) Lymph # (Auto) Gonzales # (Auto) Eos # (Auto) Baso # (Auto) Neutrophils % (Manual) Band Neutrophils % Lymphocytes % (Manual) Monocytes % (Manual) Metamyelocytes % Myelocytes % Platelet Estimate Hypochromasia (manual) Anisocytosis (manual) Target Cells Puncture Site pCO2 pO2 HCO3 ABG pH ABG Total CO2 ABG O2 Saturation ABG Base Excess ABG Hemoglobin ABG Carboxyhemoglobin POC ABG HHb (Measured) ABG Methemoglobin Aníbal Test A-a O2 Difference Respiratory Index Hgb O2 Saturation Mechanical Rate FiO2 Tidal Volume PEEP Crit Value Called To Crit Value Called By Crit Value Read Back Blood Gas Notified Time Sodium Potassium Chloride Carbon Dioxide Anion Gap BUN Creatinine Est GFR ( Amer) Est GFR (Non-Af Amer) POC Glucose (mg/dL) 144 H Random Glucose Calcium Phosphorus Magnesium Total Bilirubin AST ALT Alkaline Phosphatase Total Protein Albumin Globulin Albumin/Globulin Ratio Assessment/Plan (1) Acute respiratory failure with hypoxemia Current Visit: Yes Status: Acute (2) Atrial fibrillation with rapid ventricular response Current Visit: Yes Status: Acute (3) SVT (supraventricular tachycardia) Current Visit: Yes Status: Acute (4) UTI (urinary tract infection) Current Visit: Yes Status: Acute (5) COPD (chronic obstructive pulmonary disease) Current Visit: No Status: Acute Attending/Attestation - Attestation I have personally seen and examined this patient.: Yes I have fully participated in the care of the patient.: Yes I have reviewed all pertinent clinical information: Yes Notes (Text): 01/19/18 18:31 patient seen and examined in the intensive care unit. patient extubated after a weaning trial continue antibiotics Continue nebulizer treatment Swallowing evaluation in a.m.
[2018-01-19 11:52] LABS: ANISOCYTOSIS SLIGHT; BANDS 8 % (0-2); HYPOCHROMIC SLIGHT; LYMPHOCYTE 13 % (20-40); METAMYELOCYTE 1 % (0-0); MONOCYTE 5 % (0-10); MYELOCYTE 1 % (0-0); NEUTROPHIL 72 % (50-75); PLATELET ESTIMATE NORMAL (NORMAL); TARGET CELLS SLIGHT; TOTAL CELLS COUNTED 100
--- NOTE | 2018-01-19 13:00 | CP.PCM.PN ---
Subjective - Date & Time of Evaluation Date of Evaluation: 01/19/18 Time of Evaluation: 12:15 - Subjective Subjective: clinically same Objective - Vital Signs/Intake and Output Vital Signs (last 24 hours): Temp Pulse Resp BP Pulse Ox 98.2 F 74 14 150/77 99 01/19/18 12:00 01/19/18 12:00 01/19/18 12:00 01/19/18 12:00 01/19/18 12:00 Intake and Output: 01/19/18 01/19/18 06:59 18:59 Intake Total 1154.7 923.8 Output Total 995 450 Balance 159.7 473.8 - Medications Medications: Current Medications Albuterol/Ipratropium (Duoneb 3 Mg/0.5 Mg (3 Ml) Ud) 3 ml INH RQ4 [facility] Last Admin: 01/19/18 11:18 Dose: 3 ml Aspirin (Aspirin Chewable) 81 mg PO DAILY [facility] Last Admin: 01/19/18 10:41 Dose: 81 mg Famotidine (Pepcid) 20 mg GT DAILY [facility] Last Admin: 01/19/18 10:41 Dose: 20 mg Heparin Sodium (Porcine) (Heparin) 5,000 units SC Q8 [facility] Last Admin: 01/19/18 06:30 Dose: 5,000 units Hydrocortisone Sodium Succinate (Solu-Cortef) 50 mg IV Q8H [facility] Last Admin: 01/19/18 10:00 Dose: Not Given Propofol (Diprivan) 1,000 mg in 100 mls @ 2.776 mls/hr IV .Q24H PRN; Protocol; 5 MCG/KG/MIN PRN Reason: Agitation Last Titration: 01/19/18 09:00 Dose: 25.03 mcg/kg/min, 13.9 mls/hr Meropenem 1 gm/ Sodium (Chloride) 100 mls @ 100 mls/hr IVPB Q8H [facility] PRN Reason: Protocol Last Admin: 01/19/18 08:12 Dose: 100 mls/hr Vancomycin/Sodium Chloride (Vancomycin 1 Gm/Ns 200 Ml) 1 gm in 200 mls @ 133 mls/hr IVPB Q12H [facility] PRN Reason: Protocol Stop: 01/23/18 21:01 Last Admin: 01/19/18 09:12 Dose: 133 mls/hr Insulin Aspart (Novolog) 0 unit SC Q6H [facility] PRN Reason: Protocol Last Admin: 01/19/18 12:42 Dose: 2 units Potassium Chloride (Klor-Con 10) 10 meq PO BRK [facility] Last Admin: 01/19/18 08:14 Dose: 10 meq Rosuvastatin Calcium (Crestor) 5 mg PO HS [facility] Last Admin: 01/18/18 21:43 Dose: 5 mg Tamsulosin HCl (Flomax) 0.4 mg PO DAILY [facility] Last Admin: 01/19/18 10:41 Dose: 0.4 mg - Labs Labs: 01/19/18 06:19 01/19/18 06:17 PT 15.7 SECONDS (9.7-12.2) H 01/13/18 15:13 INR 1.4 01/13/18 15:13 APTT 92 SECONDS (21-34) H D 01/16/18 06:14 - Constitutional Appears: Well - Head Exam Head Exam: ATRAUMATIC, NORMAL INSPECTION, NORMOCEPHALIC - Eye Exam Eye Exam: EOMI, Normal appearance, PERRL Pupil Exam: NORMAL ACCOMODATION, PERRL - ENT Exam ENT Exam: Mucous Membranes Moist, Normal Exam - Neck Exam Neck Exam: Full ROM, Normal Inspection. absent: Lymphadenopathy - Respiratory Exam Respiratory Exam: Decreased Breath Sounds - Cardiovascular Exam Cardiovascular Exam: REGULAR RHYTHM, +S1, +S2 - GI/Abdominal Exam GI & Abdominal Exam: Soft, Diminished Bowel Sounds - Rectal Exam Rectal Exam: Deferred Assessment and Plan (1) Atrial fibrillation Status: Acute (2) Fever Status: Acute (3) Mental status alteration Status: Acute (4) UTI (urinary tract infection) Status: Acute (5) BPH (benign prostatic hyperplasia) Status: Acute (6) COPD (chronic obstructive pulmonary disease) Status: Acute (7) Congestive heart failure (CHF) Status: Acute (8) GERD (gastroesophageal reflux disease) Status: Acute (9) Hematuria Status: Acute (10) Hypertension Status: Acute (11) Pneumonia Status: Acute (12) Urinary retention Status: Acute
--- NOTE | 2018-01-19 19:52 | CP.PCM.PN ---
<Marily Farris E - Last Filed: 01/19/18 19:49> Subjective - Date & Time of Evaluation Date of Evaluation: 01/19/18 Time of Evaluation: 07:45 - Subjective Subjective: Cardiology progress note ( Dr. Blanco's service) Patient was seen and examined at bedside. Patient is still currently on ventilator, therefore, unable to evaluate ROS. Patient does have withdrawal to pain and sternum rub. As per icu team, patient is in trial for weaning off ventilator, currently on Cipap. Objective - Vital Signs/Intake and Output Vital Signs (last 24 hours): Temp Pulse Resp BP Pulse Ox 97.6 F 71 20 136/67 93 L 01/19/18 16:00 01/19/18 19:00 01/19/18 19:00 01/19/18 19:00 01/19/18 19:00 Intake and Output: 01/19/18 01/20/18 18:59 06:59 Intake Total 1362.2 Output Total 1050 Balance 312.2 - Medications Medications: Current Medications Albuterol/Ipratropium (Duoneb 3 Mg/0.5 Mg (3 Ml) Ud) 3 ml INH RQ4 [facility] Last Admin: 01/19/18 19:33 Dose: 3 ml Aspirin (Aspirin Chewable) 81 mg PO DAILY [facility] Last Admin: 01/19/18 10:41 Dose: 81 mg Famotidine (Pepcid) 20 mg GT DAILY [facility] Last Admin: 01/19/18 10:41 Dose: 20 mg Heparin Sodium (Porcine) (Heparin) 5,000 units SC Q8 [facility] Last Admin: 01/19/18 13:42 Dose: 5,000 units Hydrocortisone Sodium Succinate (Solu-Cortef) 50 mg IV Q8H [facility] Last Admin: 01/19/18 18:57 Dose: 50 mg Propofol (Diprivan) 1,000 mg in 100 mls @ 2.776 mls/hr IV .Q24H PRN; Protocol; 5 MCG/KG/MIN PRN Reason: Agitation Last Titration: 01/19/18 15:15 Dose: 0 mcg/kg/min, 0 mls/hr Meropenem 1 gm/ Sodium (Chloride) 100 mls @ 100 mls/hr IVPB Q8H [facility] PRN Reason: Protocol Last Admin: 01/19/18 16:28 Dose: 100 mls/hr Vancomycin/Sodium Chloride (Vancomycin 1 Gm/Ns 200 Ml) 1 gm in 200 mls @ 133 mls/hr IVPB Q12H [facility] PRN Reason: Protocol Stop: 01/23/18 21:01 Last Admin: 01/19/18 09:12 Dose: 133 mls/hr Insulin Aspart (Novolog) 0 unit SC Q6H [facility] PRN Reason: Protocol Last Admin: 01/19/18 18:00 Dose: Not Given Potassium Chloride (Klor-Con 10) 10 meq PO BRK [facility] Last Admin: 01/19/18 08:14 Dose: 10 meq Rosuvastatin Calcium (Crestor) 5 mg PO HS [facility] Last Admin: 01/18/18 21:43 Dose: 5 mg Tamsulosin HCl (Flomax) 0.4 mg PO DAILY [facility] Last Admin: 01/19/18 10:41 Dose: 0.4 mg - Labs Labs: 01/19/18 06:19 01/19/18 06:17 PT 15.7 SECONDS (9.7-12.2) H 01/13/18 15:13 INR 1.4 01/13/18 15:13 APTT 92 SECONDS (21-34) H D 01/16/18 06:14 - Constitutional Appears: No Acute Distress - Head Exam Head Exam: ATRAUMATIC - Respiratory Exam Respiratory Exam: NORMAL BREATHING PATTERN Additional comments: On ventilator - Cardiovascular Exam Cardiovascular Exam: REGULAR RHYTHM - GI/Abdominal Exam GI & Abdominal Exam: Normal Bowel Sounds - Extremities Exam Extremities Exam: absent: Calf Tenderness, Pedal Edema Assessment and Plan (1) Atrial fibrillation with rapid ventricular response Assessment & Plan: Currently not on lopressor due to bradycardia Currently not in atrial fibrillation Echo: Suboptimal study but read as normal as per second opinion ASA 81mg PO daily Status: Acute (2) SVT (supraventricular tachycardia) Assessment & Plan: Resolved Intermittent bradycardia Amiodarone discontinued Status: Acute (3) Sepsis Assessment & Plan: Sepsis on admission, resolved: Afebrile for > 48 hours, WBC trending down UA/UC positive for UTI UC: Proteus Mirabilis, enterococcus faecalis BC: Negative Meropenem 1gm IV Q8H Status: Acute (4) D-dimer, elevated Assessment & Plan: D-dimer : [address]: Not completed due to patient's conditionC Venous Doppler: Negative DVT ( RLE) Heparin drip initiated: Discontinued by ICU team Status: Acute (5) Prophylactic measure Assessment & Plan: DVT: Heparin 5,000 units SC Q8H GI: Pepcid 20mg GT daily Status: Acute <Aaron Blanco - Last Filed: 01/19/18 22:40> Objective - Vital Signs/Intake and Output Vital Signs (last 24 hours): Temp Pulse Resp BP Pulse Ox 97.6 F 122 H 21 148/73 90 L 01/19/18 16:00 01/19/18 22:01 01/19/18 22:01 01/19/18 22:01 01/19/18 22:01 Intake and Output: 01/19/18 01/20/18 18:59 06:59 Intake Total 1362.2 200 Output Total 1050 400 Balance 312.2 -200 - Medications Medications: Current Medications Albuterol/Ipratropium (Duoneb 3 Mg/0.5 Mg (3 Ml) Ud) 3 ml INH RQ4 [facility] Last Admin: 01/19/18 19:33 Dose: 3 ml Aspirin (Aspirin Chewable) 81 mg PO DAILY [facility] Last Admin: 01/19/18 10:41 Dose: 81 mg Famotidine (Pepcid) 20 mg GT DAILY [facility] Last Admin: 01/19/18 10:41 Dose: 20 mg Heparin Sodium (Porcine) (Heparin) 5,000 units SC Q8 [facility] Last Admin: 01/19/18 21:33 Dose: Not Given Hydrocortisone Sodium Succinate (Solu-Cortef) 50 mg IV Q8H [facility] Last Admin: 01/19/18 18:57 Dose: 50 mg Meropenem 1 gm/ Sodium (Chloride) 100 mls @ 100 mls/hr IVPB Q8H [facility] PRN Reason: Protocol Last Admin: 01/19/18 16:28 Dose: 100 mls/hr Vancomycin/Sodium Chloride (Vancomycin 1 Gm/Ns 200 Ml) 1 gm in 200 mls @ 133 mls/hr IVPB Q12H [facility] PRN Reason: Protocol Stop: 01/23/18 21:01 Last Admin: 01/19/18 09:12 Dose: 133 mls/hr Insulin Aspart (Novolog) 0 unit SC Q6H [facility] PRN Reason: Protocol Last Admin: 01/19/18 18:00 Dose: Not Given Potassium Chloride (Klor-Con 10) 10 meq PO BRK [facility] Last Admin: 01/19/18 08:14 Dose: 10 meq Rosuvastatin Calcium (Crestor) 5 mg PO HS [facility] Last Admin: 01/19/18 21:33 Dose: Not Given Tamsulosin HCl (Flomax) 0.4 mg PO DAILY [facility] Last Admin: 01/19/18 10:41 Dose: 0.4 mg - Labs Labs: 01/19/18 06:19 01/19/18 06:17 PT 15.7 SECONDS (9.7-12.2) H 01/13/18 15:13 INR 1.4 01/13/18 15:13 APTT 92 SECONDS (21-34) H D 01/16/18 06:14 Assessment and Plan - Assessment and Plan (Free Text) Assessment: Patient seen and evaluated personally by ms Plan of care d/w the medical office technology instructor and as documented
--- NOTE | 2018-01-19 22:01 | CP.PCM.PN ---
Subjective - Date & Time of Evaluation Date of Evaluation: 01/19/18 Time of Evaluation: 15:30 - Subjective Subjective: dictated Objective - Vital Signs/Intake and Output Vital Signs (last 24 hours): Temp Pulse Resp BP Pulse Ox 97.6 F 76 20 139/73 91 L 01/19/18 16:00 01/19/18 21:00 01/19/18 21:00 01/19/18 21:00 01/19/18 21:00 Intake and Output: 01/19/18 01/20/18 18:59 06:59 Intake Total 1362.2 Output Total 1050 200 Balance 312.2 -200 - Medications Medications: Current Medications Albuterol/Ipratropium (Duoneb 3 Mg/0.5 Mg (3 Ml) Ud) 3 ml INH RQ4 [facility] Last Admin: 01/19/18 19:33 Dose: 3 ml Aspirin (Aspirin Chewable) 81 mg PO DAILY [facility] Last Admin: 01/19/18 10:41 Dose: 81 mg Famotidine (Pepcid) 20 mg GT DAILY [facility] Last Admin: 01/19/18 10:41 Dose: 20 mg Heparin Sodium (Porcine) (Heparin) 5,000 units SC Q8 [facility] Last Admin: 01/19/18 21:33 Dose: Not Given Hydrocortisone Sodium Succinate (Solu-Cortef) 50 mg IV Q8H [facility] Last Admin: 01/19/18 18:57 Dose: 50 mg Meropenem 1 gm/ Sodium (Chloride) 100 mls @ 100 mls/hr IVPB Q8H [facility] PRN Reason: Protocol Last Admin: 01/19/18 16:28 Dose: 100 mls/hr Vancomycin/Sodium Chloride (Vancomycin 1 Gm/Ns 200 Ml) 1 gm in 200 mls @ 133 mls/hr IVPB Q12H [facility] PRN Reason: Protocol Stop: 01/23/18 21:01 Last Admin: 01/19/18 09:12 Dose: 133 mls/hr Insulin Aspart (Novolog) 0 unit SC Q6H [facility] PRN Reason: Protocol Last Admin: 01/19/18 18:00 Dose: Not Given Potassium Chloride (Klor-Con 10) 10 meq PO BRK [facility] Last Admin: 01/19/18 08:14 Dose: 10 meq Rosuvastatin Calcium (Crestor) 5 mg PO HS [facility] Last Admin: 01/19/18 21:33 Dose: Not Given Tamsulosin HCl (Flomax) 0.4 mg PO DAILY [facility] Last Admin: 01/19/18 10:41 Dose: 0.4 mg - Labs Labs: 01/19/18 06:19 01/19/18 06:17 PT 15.7 SECONDS (9.7-12.2) H 01/13/18 15:13 INR 1.4 01/13/18 15:13 APTT 92 SECONDS (21-34) H D 01/16/18 06:14
[2018-01-20] MEDS: Meropenem 1 GM in Sodium Chloride 0.9% 100 ML IVPB SCH (00:30)
[2018-01-20] MEDS: Albuterol-Ipratrop 3 mg / 0.5 (3 ml) UD INH SCH ×6 (00:55→19:08)
--- NOTE | 2018-01-20 02:02 | PN ---
DATE: 01/19/2018 SUBJECTIVE: Today they were trying to extubate him and they were trying CPAP today and the patient still was very drowsy, he was bradycardic. PHYSICAL EXAMINATION: VITAL SIGNS: Heart rate was 48 when I saw, T-max was 97.6, pulse 45 to 50, blood pressure 138/74, respirations are 11. HEENT: Head is atraumatic. Left eye is more closed than the right one. NECK: Supple. LUNGS: Clear. HEART: S1, S2 are bradycardic. ABDOMEN: Soft, nontender. No guarding. No rigidity present. EXTREMITIES: Have edema plus stasis dermatitis and swollen. LABORATORY DATA: White count is 14.7, hemoglobin 10.4, hematocrit 32.7, platelet count is 228. Chemistry shows CO2 is 42, BUN is 37, creatinine 0.9. Micro, urine culture on 01/14/2018 had proteus and enterococcus and he was on Merrem and vancomycin 1 gm every 12 hours and meropenem at this time and covering the urine, the repeat urine culture is negative. On 01/19/2018 chest x-ray was done which shows support lines and tubes, as above redemonstrated mild pulmonary venous congestion changes of questionable slight improvement, bilateral lower alveolar type infiltrates and bilateral effusions. ASSESSMENT AND PLAN: So, he still remains was in acute respiratory failure with congestive heart failure and has stasis dermatitis, had urinary tract infection which is improving. He also had blood culture positive for proteus and sputum has Pseudomonas aeruginosa and the blood culture most likely came from the urine source as urine also has proteus. We have not done any CAT scan of the abdomen and pelvis which I would like to have as he had gram-negative septicemia or any obstruction, will order one for tomorrow and we will follow. Juan Duong MD
[2018-01-20] MEDS: (Novolog) Insulin Aspart, Recombinant 100 u/ml 10 ml vial SC SCH ×4 (05:18→21:39)
[2018-01-20 06:24] LABS: BASO % 0.2 % (0.0-2.0); HEMOGLOBIN 10.4 g/dL (12.0-18.0); LYMPH # 1.8 K/uL (1.0-4.3); LYMPH % 14.3 % (20.0-40.0); MEAN CELL VOLUME 80.3 fL (80.0-94.0); MEAN CORPUSCULAR HEMOGLOBIN 25.5 pg (27.0-31.0); MEAN CORPUSCULAR HGB CONC 31.7 g/dL (33.0-37.0); MEAN PLATELET VOLUME 8.1 fL (7.2-11.7); MONO # 0.7 K/uL (0.0-0.8); MONO % 5.2 % (0.0-10.0); NEUT # 10.4 K/uL (1.8-7.0); NEUT % 80.3 % (50.0-75.0); NRBC % 0.1 % (0.0-2.0); RBC 4.1 Mil/uL (4.40-5.90); RED CELL DISTRIBUTION WIDTH 17.3 % (11.5-14.5); WHITE BLOOD COUNT 12.9 K/uL (4.8-10.8)
[2018-01-20 06:48] LABS: ALB/GLOB RATIO 0.9 (1.0-2.1); ALT/SGPT 51 U/L (21-72); AST/SGOT 41 U/L (17-59); BLOOD UREA NITROGEN 38 mg/dL (9-20); CALCIUM 7.8 mg/dl (8.6-10.4); GFR NON-AFRICAN AMERICAN > 60
[2018-01-20] MEDS ORDERED: Potassium Chloride 20 mEq/15 ml LIQ UD PO ONE (07:30)
[2018-01-20] MEDS: Vancomycin 1 gm/NS 200 ml 1 GM/200 ML BAG IVPB SCH ×2 (08:01→21:37)
--- NOTE | 2018-01-20 08:34 | CP.CCUPN ---
<Yamil Corona - Last Filed: 01/20/18 10:16> CCU Subjective - Physician Review Subjective (Free Text): ICU Progress note Patient seen and examined at bedside. Patient was extubated yesterday, and oxygenating well. He is saturating well on NC currently. He has no chest pain, shortness of breath, abdominal pain, nausea, vomiting, headache, dizziness, lower extremity pain. He states he is hungry and would like to eat breakfast. 01/20/18 10:16 CCU Objective - Vital Signs / Intake & Output Vital Signs (Last 4 hours): Vital Signs Temp Pulse Resp BP Pulse Ox 01/20/18 08:00 98.3 F 55 L 24 133/77 100 01/20/18 07:00 74 26 H 161/83 H 01/20/18 06:00 60 23 154/80 H 94 L 01/20/18 05:01 109 H 33 H 114/76 92 L 01/20/18 05:00 118 H 35 H 93 L Intake and Output (Last 8hrs): Intake & Output 01/19/18 01/20/18 01/20/18 22:59 06:59 14:59 Intake Total 460.8 100 Output Total 800 800 200 Balance -339.2 -700 -200 Weight 194 lb 4.8 oz Intake: IV 7 Intake, IV Amount 213.8 100 Right Distal Port PICC 213.8 100 Tube Feeding 140 Albumin 100 Output: Urine 800 800 200 Urethral (Olivares) 800 800 200 - Physical Exam Head: Positive for: Atraumatic, Normocephalic Pupils: Positive for: PERRL Extroacular Muscles: Positive for: EOMI Mouth: Positive for: Moist Mucous Membranes Nose (External): Positive for: Atraumatic Respiratory/Chest: Positive for: Decreased Breath Sounds. Negative for: Respiratory Distress (Vented) Cardiovascular: Positive for: Regular Rate and Rhythm, Normal S1, S2 Abdomen: Positive for: Normal Bowel Sounds, Other (Olivares draining urine. ). Negative for: Tenderness Upper Extremity: Positive for: Other (Right upper extremity PICC line in place) Lower Extremity: Positive for: Edema (Mild edema of bilateral lower extremities. Skin changes on anterior left lower [place]. ), Other (DP pulses palpable bilaterally) Neurological: Positive for: Other (Altered, sedated) Psychiatric: Positive for: Alert - Medications Active Medications: Active Medications Generic Name Dose Route Start Last Admin Trade Name Volodymyr PRN Reason Stop Dose Admin Albuterol/Ipratropium 3 ml 01/15/18 12:00 01/20/18 07:44 Duoneb 3 Mg/0.5 Mg (3 Ml) Ud INH 3 ml RQ4 JOJO Administration Aspirin 81 mg 01/18/18 10:00 01/19/18 10:41 Aspirin Chewable PO 81 mg DAILY JOJO Administration Famotidine 20 mg 01/17/18 10:00 01/19/18 10:41 Pepcid GT 20 mg DAILY JOJO Administration Heparin Sodium (Porcine) 5,000 units 01/16/18 14:00 01/20/18 05:18 Heparin SC Not Given Q8 JOJO Hydrocortisone Sodium Succinate 50 mg 01/19/18 10:00 01/20/18 01:52 Solu-Cortef IV 50 mg Q8H JOJO Administration Vancomycin/Sodium Chloride 1 gm in 200 mls @ 133 mls/hr 01/18/18 21:00 08:01 Vancomycin 1 Gm/Ns 200 Ml IVPB 01/23/18 21:01 133 mls/hr Q12H JOJO Administration Protocol Insulin Aspart 0 unit 01/15/18 12:00 01/20/18 05:18 Novolog SC Not Given Q6H COUNTS INCLUDE 234 BEDS AT THE [facility] Protocol Potassium Chloride 10 meq 01/18/18 08:00 01/19/18 08:14 Klor-Con 10 PO 10 meq BRK JOJO Administration Rosuvastatin Calcium 5 mg 01/17/18 22:00 01/19/18 21:33 Crestor PO Not Given HS COUNTS INCLUDE 234 BEDS AT THE [facility] Tamsulosin HCl 0.4 mg 01/17/18 11:00 01/19/18 10:41 Flomax PO 0.4 mg DAILY JOJO Administration - Patient Studies Lab Studies: Microbiology Studies 01/18/18 01:56 Urine Culture - Final Urine,Olivares No Growth (<1,000 CFU/ML) 01/14/18 10:48 Blood Culture - Final Blood-Thru Central Line NO GROWTH AFTER 5 DAYS Gram Stain - Final TEST NOT PERFORMED 01/14/18 10:48 Blood Culture - Final Blood-Thru Central Line NO GROWTH AFTER 5 DAYS Gram Stain - Final TEST NOT PERFORMED Lab Studies 01/20/18 01/20/18 01/20/18 Range/Units 06:18 06:16 05:38 WBC 12.9 H (4.8-10.8) K/uL RBC 4.10 L (4.40-5.90) Mil/uL Hgb 10.4 L (12.0-18.0) g/dL Hct 32.9 L (35.0-51.0) % MCV 80.3 (80.0-94.0) fL MCH 25.5 L (27.0-31.0) pg MCHC 31.7 L (33.0-37.0) g/dL RDW 17.3 H (11.5-14.5) % Plt Count 235 (130-400) K/uL MPV 8.1 (7.2-11.7) fL Neut % (Auto) 80.3 H (50.0-75.0) % Lymph % (Auto) 14.3 L (20.0-40.0) % [place] % (Auto) 5.2 (0.0-10.0) % Eos % (Auto) 0.0 (0.0-4.0) % Baso % (Auto) 0.2 (0.0-2.0) % Neut # (Auto) 10.4 H (1.8-7.0) K/uL Lymph # (Auto) 1.8 (1.0-4.3) K/uL [place] # (Auto) 0.7 (0.0-0.8) K/uL Eos # (Auto) 0.0 (0.0-0.7) K/uL Baso # (Auto) 0.0 (0.0-0.2) K/uL Neutrophils % (Manual) (50-75) % Band Neutrophils % (0-2) % Lymphocytes % (Manual) (20-40) % Monocytes % (Manual) (0-10) % Metamyelocytes % (0-0) % Myelocytes % (0-0) % Platelet Estimate (NORMAL) Hypochromasia (manual) Anisocytosis (manual) Target Cells Sodium 149 H (132-148) mmol/L Potassium 3.2 L (3.6-5.2) mmol/L Chloride 97 L (98-107) mmol/L Carbon Dioxide 45 H* (22-30) mmol/L Anion Gap 10 (10-20) BUN 38 H (9-20) mg/dL Creatinine 0.8 (0.8-1.5) mg/dL Est GFR ( Amer) > 60 Est GFR (Non-Af Amer) > 60 POC Glucose (mg/dL) 122 H (65-110) mg/dL Random Glucose 133 H (75-110) mg/dL Calcium 7.8 L (8.6-10.4) mg/dl Phosphorus 3.3 (2.5-4.5) mg/dL Magnesium 2.0 (1.6-2.3) mg/dL Total Bilirubin 0.8 (0.2-1.3) mg/dL AST 41 (17-59) U/L ALT 51 (21-72) U/L Alkaline Phosphatase 103 (38-126) U/L Total Protein 6.4 (6.3-8.3) g/dL Albumin 3.0 L (3.5-5.0) g/dL Globulin 3.4 (2.2-3.9) gm/dL Albumin/Globulin Ratio 0.9 L (1.0-2.1) 01/19/18 01/19/18 01/19/18 Range/Units 23:13 17:41 11:10 WBC (4.8-10.8) K/uL RBC (4.40-5.90) Mil/uL Hgb (12.0-18.0) g/dL Hct (35.0-51.0) % MCV (80.0-94.0) fL MCH (27.0-31.0) pg MCHC (33.0-37.0) g/dL RDW (11.5-14.5) % Plt Count (130-400) K/uL MPV (7.2-11.7) fL Neut % (Auto) (50.0-75.0) % Lymph % (Auto) (20.0-40.0) % [place] % (Auto) (0.0-10.0) % Eos % (Auto) (0.0-4.0) % Baso % (Auto) (0.0-2.0) % Neut # (Auto) (1.8-7.0) K/uL Lymph # (Auto) (1.0-4.3) K/uL [place] # (Auto) (0.0-0.8) K/uL Eos # (Auto) (0.0-0.7) K/uL Baso # (Auto) (0.0-0.2) K/uL Neutrophils % (Manual) (50-75) % Band Neutrophils % (0-2) % Lymphocytes % (Manual) (20-40) % Monocytes % (Manual) (0-10) % Metamyelocytes % (0-0) % Myelocytes % (0-0) % Platelet Estimate (NORMAL) Hypochromasia (manual) Anisocytosis (manual) Target Cells Sodium (132-148) mmol/L Potassium (3.6-5.2) mmol/L Chloride (98-107) mmol/L Carbon Dioxide (22-30) mmol/L Anion Gap (10-20) BUN (9-20) mg/dL Creatinine (0.8-1.5) mg/dL Est GFR ( Amer) Est GFR (Non-Af Amer) POC Glucose (mg/dL) 128 H 144 H 157 H (65-110) mg/dL Random Glucose (75-110) mg/dL Calcium (8.6-10.4) mg/dl Phosphorus (2.5-4.5) mg/dL Magnesium (1.6-2.3) mg/dL Total Bilirubin (0.2-1.3) mg/dL AST (17-59) U/L ALT (21-72) U/L Alkaline Phosphatase (38-126) U/L Total Protein (6.3-8.3) g/dL Albumin (3.5-5.0) g/dL Globulin (2.2-3.9) gm/dL Albumin/Globulin Ratio (1.0-2.1) 01/19/18 01/19/18 Range/Units 06:19 06:18 WBC (4.8-10.8) K/uL RBC (4.40-5.90) Mil/uL Hgb (12.0-18.0) g/dL Hct (35.0-51.0) % MCV (80.0-94.0) fL MCH (27.0-31.0) pg MCHC (33.0-37.0) g/dL RDW (11.5-14.5) % Plt Count (130-400) K/uL MPV (7.2-11.7) fL Neut % (Auto) (50.0-75.0) % Lymph % (Auto) (20.0-40.0) % [place] % (Auto) (0.0-10.0) % Eos % (Auto) (0.0-4.0) % Baso % (Auto) (0.0-2.0) % Neut # (Auto) (1.8-7.0) K/uL Lymph # (Auto) (1.0-4.3) K/uL [place] # (Auto) (0.0-0.8) K/uL Eos # (Auto) (0.0-0.7) K/uL Baso # (Auto) (0.0-0.2) K/uL Neutrophils % (Manual) 72 (50-75) % Band Neutrophils % 8 H (0-2) % Lymphocytes % (Manual) 13 L (20-40) % Monocytes % (Manual) 5 (0-10) % Metamyelocytes % 1 H (0-0) % Myelocytes % 1 H (0-0) % Platelet Estimate Normal (NORMAL) Hypochromasia (manual) Slight Anisocytosis (manual) Slight Target Cells Slight Sodium (132-148) mmol/L Potassium (3.6-5.2) mmol/L Chloride (98-107) mmol/L Carbon Dioxide (22-30) mmol/L Anion Gap (10-20) BUN (9-20) mg/dL Creatinine (0.8-1.5) mg/dL Est GFR ( Amer) Est GFR (Non-Af Amer) POC Glucose (mg/dL) 142 H (65-110) mg/dL Random Glucose (75-110) mg/dL Calcium (8.6-10.4) mg/dl Phosphorus (2.5-4.5) mg/dL Magnesium (1.6-2.3) mg/dL Total Bilirubin (0.2-1.3) mg/dL AST (17-59) U/L ALT (21-72) U/L Alkaline Phosphatase (38-126) U/L Total Protein (6.3-8.3) g/dL Albumin (3.5-5.0) g/dL Globulin (2.2-3.9) gm/dL Albumin/Globulin Ratio (1.0-2.1) Laboratory Results - last 24 hr 01/19/18 01/19/18 01/19/18 06:18 06:19 11:10 WBC RBC Hgb Hct MCV MCH MCHC RDW Plt Count MPV Neut % (Auto) Lymph % (Auto) [place] % (Auto) Eos % (Auto) Baso % (Auto) Neut # (Auto) Lymph # (Auto) [place] # (Auto) Eos # (Auto) Baso # (Auto) Neutrophils % (Manual) 72 Band Neutrophils % 8 H Lymphocytes % (Manual) 13 L Monocytes % (Manual) 5 Metamyelocytes % 1 H Myelocytes % 1 H Platelet Estimate Normal Hypochromasia (manual) Slight Anisocytosis (manual) Slight Target Cells Slight Sodium Potassium Chloride Carbon Dioxide Anion Gap BUN Creatinine Est GFR ( Amer) Est GFR (Non-Af Amer) POC Glucose (mg/dL) 142 H 157 H Random Glucose Calcium Phosphorus Magnesium Total Bilirubin AST ALT Alkaline Phosphatase Total Protein Albumin Globulin Albumin/Globulin Ratio 01/19/18 01/19/18 01/20/18 17:41 23:13 05:38 WBC RBC Hgb Hct MCV MCH MCHC RDW Plt Count MPV Neut % (Auto) Lymph % (Auto) [place] % (Auto) Eos % (Auto) Baso % (Auto) Neut # (Auto) Lymph # (Auto) [place] # (Auto) Eos # (Auto) Baso # (Auto) Neutrophils % (Manual) Band Neutrophils % Lymphocytes % (Manual) Monocytes % (Manual) Metamyelocytes % Myelocytes % Platelet Estimate Hypochromasia (manual) Anisocytosis (manual) Target Cells Sodium Potassium Chloride Carbon Dioxide Anion Gap BUN Creatinine Est GFR ( Amer) Est GFR (Non-Af Amer) POC Glucose (mg/dL) 144 H 128 H 122 H Random Glucose Calcium Phosphorus Magnesium Total Bilirubin AST ALT Alkaline Phosphatase Total Protein Albumin Globulin Albumin/Globulin Ratio 01/20/18 01/20/18 06:16 06:18 WBC 12.9 H RBC 4.10 L Hgb 10.4 L Hct 32.9 L MCV 80.3 MCH 25.5 L MCHC 31.7 L RDW 17.3 H Plt Count 235 MPV 8.1 Neut % (Auto) 80.3 H Lymph % (Auto) 14.3 L [place] % (Auto) 5.2 Eos % (Auto) 0.0 Baso % (Auto) 0.2 Neut # (Auto) 10.4 H Lymph # (Auto) 1.8 [place] # (Auto) 0.7 Eos # (Auto) 0.0 Baso # (Auto) 0.0 Neutrophils % (Manual) Band Neutrophils % Lymphocytes % (Manual) Monocytes % (Manual) Metamyelocytes % Myelocytes % Platelet Estimate Hypochromasia (manual) Anisocytosis (manual) Target Cells Sodium 149 H Potassium 3.2 L Chloride 97 L Carbon Dioxide 45 H* Anion Gap 10 BUN 38 H Creatinine 0.8 Est GFR ( Amer) > 60 Est GFR (Non-Af Amer) > 60 POC Glucose (mg/dL) Random Glucose 133 H Calcium 7.8 L Phosphorus 3.3 Magnesium 2.0 Total Bilirubin 0.8 AST 41 ALT 51 Alkaline Phosphatase 103 Total Protein 6.4 Albumin 3.0 L Globulin 3.4 Albumin/Globulin Ratio 0.9 L Fingerstick Blood Sugar Results: 144 Review of Systems - Constitutional Constitutional: absent: Fever, Chills - Cardiovascular Cardiovascular: absent: Chest Pain, Dyspnea - Respiratory Respiratory: absent: Cough, Dyspnea - Gastrointestinal Gastrointestinal: absent: Abdominal Pain, Nausea, Vomiting - Genitourinary Genitourinary: absent: Dysuria Critical Care Progress Note - Nutrition Nutrition: Nutrition Category Date Time Status Dysphagia/Modified Consistency Diet [DIET] Diets 01/20/18 Breakfast Active Assessment/Plan - Assessment and Plan (Free Text) Assessment: 77 year old male with history of diastolic CHF, COPD, diverticulitis, HTN, peripheral edema, pneumonia who presented from residential for altered mental status. Patient was found to be hypotensive with leukocytosis. Patient intermittently went into SVT with rate into 180s, has required cardioversion, has been on Amiodarone drip and Amiodarone PO. Currently in SR. Patient extubated yesterday after weaning trial. Plan: Neuro: Awake CT head Mild age related neuro degenerative changes are appreciated which appear age appropriate. No definite acute intracranial findings by standard CT criteria. Follow-up CT or MRI are available if clinically warranted. Cardiovascular: Remained in SR in 60s Not on pressors Hx of diastolic CHF proBNP 1370 Troponin 0.0340 ECHO: RV moderately dilated. Moderate TR. PICC line placed in right arm ASA 81mg PO Crestor 5mg PO HS Merchandising Professor Dr. Blanco consulted, help appreciated Pulmonary: CXR No interval pathology noted. Extubated, on O2 via NC Dopplers negative for clots. D-dimer 3655 Duonebs Q4 GI: Pepcid 20mg Can start PO diet Renal BUN 38 Cr 0.8 I&Os KCL 10mEq PO daily, also K repleted 40mEq. Flomax 0.4mg PO Bicarb noted to be persistently elevated at , Hydrocortisone discontinued. Acetazolamide 250mg PO BID started. Continue to monitor electrolyte, replete as needed Olivares d/c Endo Maintain euglycemia ID White count 12.9 Not febrile currently On Vancomycin UA 3+ LE, 2+ protein 2+ blood moderate bacteria WBC 1186 Blood cultures: proteus, repeat blood cx no growth urine culture: Proteus, enterococcus fecalis, repeat urine cx - no growth Trach aspirate and sputum: pseudomonas aeruginosa ID Dr. Duong consulted, help appreciated Heme/Onc H/H 10.4/32.9 PPX: Pepcid, Heparin SC Q8 Social: Spoke to patient's son Leonid Malone who stated that he would like to have patient's code status changed to DNR given patient's poor quality of life. Case discussed with Dr. Cannon <Juan C Cannon - Last Filed: 01/20/18 18:22> CCU Subjective - Physician Review Critical Care Time Spent (in minutes): 30 CCU Objective - Vital Signs / Intake & Output Vital Signs (Last 4 hours): Vital Signs Temp Pulse Resp BP Pulse Ox 01/20/18 17:00 63 22 123/74 97 01/20/18 16:00 97.8 F 64 25 H 109/52 L 95 01/20/18 15:00 88 21 125/69 98 Intake and Output (Last 8hrs): Intake & Output 01/20/18 01/20/18 01/20/18 06:59 14:59 22:59 Intake Total 100 650 0 Output Total 800 400 0 Balance -700 250 0 Weight 194 lb 4.8 oz Intake: Intake, IV Amount 100 200 Right Distal Port PICC 100 200 Oral 450 0 Output: Urine 800 400 0 Urethral (Olivares) 800 400 Urine, Voided 0 0 - Medications Active Medications: Active Medications Generic Name Dose Route Start Last Admin Trade Name Freq PRN Reason Stop Dose Admin Acetazolamide 250 mg 01/20/18 10:00 01/20/18 09:44 Diamox 250 Mg Tab PO 250 mg BID JOJO Administration Albuterol/Ipratropium 3 ml 01/15/18 12:00 01/20/18 16:36 Duoneb 3 Mg/0.5 Mg (3 Ml) Ud INH 3 ml RQ4 JOJO Administration Aspirin 81 mg 01/18/18 10:00 01/20/18 09:18 Aspirin Chewable PO 81 mg DAILY JOJO Administration Famotidine 20 mg 01/17/18 10:00 01/20/18 09:18 Pepcid GT 20 mg DAILY JOJO Administration Heparin Sodium (Porcine) 5,000 units 01/16/18 14:00 01/20/18 14:45 Heparin SC 5,000 units Q8 JOJO Administration Vancomycin/Sodium Chloride 1 gm in 200 mls @ 133 mls/hr 01/18/18 21:00 08:01 Vancomycin 1 Gm/Ns 200 Ml IVPB 01/23/18 21:01 133 mls/hr Q12H JOJO Administration Protocol Insulin Aspart 0 unit 01/20/18 11:30 01/20/18 17:16 Novolog SC Not Given ACHS JOJO Protocol Potassium Chloride 10 meq 01/18/18 08:00 01/20/18 09:18 Klor-Con 10 PO 10 meq BRK JOJO Administration Rosuvastatin Calcium 5 mg 01/17/18 22:00 01/19/18 21:33 Crestor PO Not Given HS JOJO Tamsulosin HCl 0.4 mg 01/17/18 11:00 01/20/18 09:18 Flomax PO 0.4 mg DAILY JOJO Administration - Patient Studies Lab Studies: Microbiology Studies 01/18/18 01:56 Urine Culture - Final Urine,Olivares No Growth (<1,000 CFU/ML) Lab Studies 01/20/18 01/20/18 01/20/18 Range/Units 16:23 11:21 06:18 WBC 12.9 H (4.8-10.8) K/uL RBC 4.10 L (4.40-5.90) Mil/uL Hgb 10.4 L (12.0-18.0) g/dL Hct 32.9 L (35.0-51.0) % MCV 80.3 (80.0-94.0) fL MCH 25.5 L (27.0-31.0) pg MCHC 31.7 L (33.0-37.0) g/dL RDW 17.3 H (11.5-14.5) % Plt Count 235 (130-400) K/uL MPV 8.1 (7.2-11.7) fL Neut % (Auto) 80.3 H (50.0-75.0) % Lymph % (Auto) 14.3 L (20.0-40.0) % [place] % (Auto) 5.2 (0.0-10.0) % Eos % (Auto) 0.0 (0.0-4.0) % Baso % (Auto) 0.2 (0.0-2.0) % Neut # (Auto) 10.4 H (1.8-7.0) K/uL Lymph # (Auto) 1.8 (1.0-4.3) K/uL [place] # (Auto) 0.7 (0.0-0.8) K/uL Eos # (Auto) 0.0 (0.0-0.7) K/uL Baso # (Auto) 0.0 (0.0-0.2) K/uL Sodium (132-148) mmol/L Potassium (3.6-5.2) mmol/L Chloride (98-107) mmol/L Carbon Dioxide (22-30) mmol/L Anion Gap (10-20) BUN (9-20) mg/dL Creatinine (0.8-1.5) mg/dL Est GFR ( Amer) Est GFR (Non-Af Amer) POC Glucose (mg/dL) 108 170 H (65-110) mg/dL Random Glucose (75-110) mg/dL Calcium (8.6-10.4) mg/dl Phosphorus (2.5-4.5) mg/dL Magnesium (1.6-2.3) mg/dL Total Bilirubin (0.2-1.3) mg/dL AST (17-59) U/L ALT (21-72) U/L Alkaline Phosphatase (38-126) U/L Total Protein (6.3-8.3) g/dL Albumin (3.5-5.0) g/dL Globulin (2.2-3.9) gm/dL Albumin/Globulin Ratio (1.0-2.1) 01/20/18 01/20/18 01/19/18 Range/Units 06:16 05:38 23:13 WBC (4.8-10.8) K/uL RBC (4.40-5.90) Mil/uL Hgb (12.0-18.0) g/dL Hct (35.0-51.0) % MCV (80.0-94.0) fL MCH (27.0-31.0) pg MCHC (33.0-37.0) g/dL RDW (11.5-14.5) % Plt Count (130-400) K/uL MPV (7.2-11.7) fL Neut % (Auto) (50.0-75.0) % Lymph % (Auto) (20.0-40.0) % [place] % (Auto) (0.0-10.0) % Eos % (Auto) (0.0-4.0) % Baso % (Auto) (0.0-2.0) % Neut # (Auto) (1.8-7.0) K/uL Lymph # (Auto) (1.0-4.3) K/uL [place] # (Auto) (0.0-0.8) K/uL Eos # (Auto) (0.0-0.7) K/uL Baso # (Auto) (0.0-0.2) K/uL Sodium 149 H (132-148) mmol/L Potassium 3.2 L (3.6-5.2) mmol/L Chloride 97 L (98-107) mmol/L Carbon Dioxide 45 H* (22-30) mmol/L Anion Gap 10 (10-20) BUN 38 H (9-20) mg/dL Creatinine 0.8 (0.8-1.5) mg/dL Est GFR ( Amer) > 60 Est GFR (Non-Af Amer) > 60 POC Glucose (mg/dL) 122 H 128 H (65-110) mg/dL Random Glucose 133 H (75-110) mg/dL Calcium 7.8 L (8.6-10.4) mg/dl Phosphorus 3.3 (2.5-4.5) mg/dL Magnesium 2.0 (1.6-2.3) mg/dL Total Bilirubin 0.8 (0.2-1.3) mg/dL AST 41 (17-59) U/L ALT 51 (21-72) U/L Alkaline Phosphatase 103 (38-126) U/L Total Protein 6.4 (6.3-8.3) g/dL Albumin 3.0 L (3.5-5.0) g/dL Globulin 3.4 (2.2-3.9) gm/dL Albumin/Globulin Ratio 0.9 L (1.0-2.1) Laboratory Results - last 24 hr 01/19/18 01/20/18 01/20/18 23:13 05:38 06:16 WBC RBC Hgb Hct MCV MCH MCHC RDW Plt Count MPV Neut % (Auto) Lymph % (Auto) [place] % (Auto) Eos % (Auto) Baso % (Auto) Neut # (Auto) Lymph # (Auto) [place] # (Auto) Eos # (Auto) Baso # (Auto) Sodium 149 H Potassium 3.2 L Chloride 97 L Carbon Dioxide 45 H* Anion Gap 10 BUN 38 H Creatinine 0.8 Est GFR ( Amer) > 60 Est GFR (Non-Af Amer) > 60 POC Glucose (mg/dL) 128 H 122 H Random Glucose 133 H Calcium 7.8 L Phosphorus 3.3 Magnesium 2.0 Total Bilirubin 0.8 AST 41 ALT 51 Alkaline Phosphatase 103 Total Protein 6.4 Albumin 3.0 L Globulin 3.4 Albumin/Globulin Ratio 0.9 L 01/20/18 01/20/18 01/20/18 06:18 11:21 16:23 WBC 12.9 H RBC 4.10 L Hgb 10.4 L Hct 32.9 L MCV 80.3 MCH 25.5 L MCHC 31.7 L RDW 17.3 H Plt Count 235 MPV 8.1 Neut % (Auto) 80.3 H Lymph % (Auto) 14.3 L [place] % (Auto) 5.2 Eos % (Auto) 0.0 Baso % (Auto) 0.2 Neut # (Auto) 10.4 H Lymph # (Auto) 1.8 [place] # (Auto) 0.7 Eos # (Auto) 0.0 Baso # (Auto) 0.0 Sodium Potassium Chloride Carbon Dioxide Anion Gap BUN Creatinine Est GFR ( Amer) Est GFR (Non-Af Amer) POC Glucose (mg/dL) 170 H 108 Random Glucose Calcium Phosphorus Magnesium Total Bilirubin AST ALT Alkaline Phosphatase Total Protein Albumin Globulin Albumin/Globulin Ratio Critical Care Progress Note - Nutrition Nutrition: Nutrition Category Date Time Status Heart Healthy Diet [DIET] Diets 01/20/18 Breakfast Active Assessment/Plan (1) Acute respiratory failure with hypoxemia Current Visit: Yes Status: Acute (2) Atrial fibrillation with rapid ventricular response Current Visit: Yes Status: Acute (3) SVT (supraventricular tachycardia) Current Visit: Yes Status: Acute (4) UTI (urinary tract infection) Current Visit: Yes Status: Acute (5) COPD (chronic obstructive pulmonary disease) Current Visit: No Status: Acute Attending/Attestation - Attestation I have personally seen and examined this patient.: Yes I have fully participated in the care of the patient.: Yes I have reviewed all pertinent clinical information: Yes Notes (Text): 01/20/18 18:21 Patient seen and examined Post extubation patient doing fine no shortness of breath noted afebrile Continue antibiotics Continue nebulizer treatment Advance diet as tolerated
[2018-01-20] MEDS: Potassium Chloride 10 mEq ER Tab PO SCH ×2 (08:36→09:18)
--- NOTE | 2018-01-20 16:39 | CP.PCM.PN ---
<BrentonCyndipaulo E - Last Filed: 01/20/18 16:36> Subjective - Date & Time of Evaluation Date of Evaluation: 01/20/18 Time of Evaluation: 10:55 - Subjective Subjective: Cardiology progress note ( Dr. Kang's service) Patient was seen and examined at bedside. Patient is currently extubated. Patient denies any discomfort at this time; denies chest pain, palpitations, sob , dizziness and headache. Objective - Vital Signs/Intake and Output Vital Signs (last 24 hours): Temp Pulse Resp BP Pulse Ox 98.3 F 88 21 125/69 98 01/20/18 08:00 01/20/18 15:00 01/20/18 15:00 01/20/18 15:00 01/20/18 15:00 Intake and Output: 01/20/18 01/20/18 06:59 18:59 Intake Total 300 650 Output Total 1200 400 Balance -900 250 - Medications Medications: Current Medications Acetazolamide (Diamox 250 Mg Tab) 250 mg PO BID [facility] Last Admin: 01/20/18 09:44 Dose: 250 mg Albuterol/Ipratropium (Duoneb 3 Mg/0.5 Mg (3 Ml) Ud) 3 ml INH RQ4 [facility] Last Admin: 01/20/18 11:32 Dose: Not Given Aspirin (Aspirin Chewable) 81 mg PO DAILY [facility] Last Admin: 01/20/18 09:18 Dose: 81 mg Famotidine (Pepcid) 20 mg GT DAILY [facility] Last Admin: 01/20/18 09:18 Dose: 20 mg Heparin Sodium (Porcine) (Heparin) 5,000 units SC Q8 [facility] Last Admin: 01/20/18 14:45 Dose: 5,000 units Vancomycin/Sodium Chloride (Vancomycin 1 Gm/Ns 200 Ml) 1 gm in 200 mls @ 133 mls/hr IVPB Q12H [facility] PRN Reason: Protocol Stop: 01/23/18 21:01 Last Admin: 01/20/18 08:01 Dose: 133 mls/hr Insulin Aspart (Novolog) 0 unit SC ACHS [facility] PRN Reason: Protocol Last Admin: 01/20/18 12:39 Dose: 2 units Potassium Chloride (Klor-Con 10) 10 meq PO BRK [facility] Last Admin: 01/20/18 09:18 Dose: 10 meq Rosuvastatin Calcium (Crestor) 5 mg PO HS [facility] Last Admin: 01/19/18 21:33 Dose: Not Given Tamsulosin HCl (Flomax) 0.4 mg PO DAILY [facility] Last Admin: 01/20/18 09:18 Dose: 0.4 mg - Labs Labs: 01/20/18 06:18 01/20/18 06:16 PT 15.7 SECONDS (9.7-12.2) H 01/13/18 15:13 INR 1.4 01/13/18 15:13 APTT 92 SECONDS (21-34) H D 01/16/18 06:14 - Constitutional Appears: No Acute Distress - Head Exam Head Exam: ATRAUMATIC - Eye Exam Eye Exam: EOMI - ENT Exam ENT Exam: Mucous Membranes Moist - Respiratory Exam Respiratory Exam: NORMAL BREATHING PATTERN - Cardiovascular Exam Cardiovascular Exam: REGULAR RHYTHM, +S1 - GI/Abdominal Exam GI & Abdominal Exam: Normal Bowel Sounds - Extremities Exam Additional comments: Left leg 1+ pitting edema Assessment and Plan (1) Atrial fibrillation with rapid ventricular response Assessment & Plan: Currently not in atrial fibrillation, NSR Currently not on lopressor due to bradycardia Echo: Suboptimal study but read as normal as per second opinion ASA 81mg PO daily Status: Acute (2) SVT (supraventricular tachycardia) Assessment & Plan: Resolved Intermittent bradycardia Amiodarone discontinued Status: Acute (3) Sepsis Assessment & Plan: Resolved Sepsis on admission, resolved: Afebrile for > 48 hours, WBC trending down UA/UC positive for UTI UC: Proteus Mirabilis, enterococcus faecalis Repeat UC (01/18/18): Negative BC: Negative Meropenem 1gm IV Q8H, D/C Vanco 1gm IV Q12H Status: Acute (4) D-dimer, elevated Assessment & Plan: D-dimer : [address]: Not completed due to patient's conditionC Venous Doppler: Negative DVT ( RLE) Heparin drip initiated: Discontinued by ICU team Status: Acute (5) Prophylactic measure Assessment & Plan: DVT: Heparin 5,000 units SC Q8H GI: Pepcid 20mg GT daily All plans and management discussed with Dr. kang Status: Acute <Aaron Kang - Last Filed: 01/20/18 22:47> Objective - Vital Signs/Intake and Output Vital Signs (last 24 hours): Temp Pulse Resp BP Pulse Ox 97.8 F 61 20 127/71 100 01/20/18 16:00 01/20/18 21:00 01/20/18 21:00 01/20/18 20:15 01/20/18 21:00 Intake and Output: 01/20/1818 18:59 06:59 Intake Total 750 50 Output Total 400 1100 Balance 350 -1050 - Medications Medications: Current Medications Acetazolamide (Diamox 250 Mg Tab) 250 mg PO BID [facility] Last Admin: 01/20/18 18:28 Dose: 250 mg Albuterol/Ipratropium (Duoneb 3 Mg/0.5 Mg (3 Ml) Ud) 3 ml INH RQ4 [facility] Last Admin: 01/20/18 19:08 Dose: 3 ml Aspirin (Aspirin Chewable) 81 mg PO DAILY [facility] Last Admin: 01/20/18 09:18 Dose: 81 mg Famotidine (Pepcid) 20 mg GT DAILY [facility] Last Admin: 01/20/18 09:18 Dose: 20 mg Heparin Sodium (Porcine) (Heparin) 5,000 units SC Q8 [facility] Last Admin: 01/20/18 21:37 Dose: 5,000 units Vancomycin/Sodium Chloride (Vancomycin 1 Gm/Ns 200 Ml) 1 gm in 200 mls @ 133 mls/hr IVPB Q12H [facility] PRN Reason: Protocol Stop: 01/23/18 21:01 Last Admin: 01/20/18 21:37 Dose: 133 mls/hr Insulin Aspart (Novolog) 0 unit SC ACHS [facility] PRN Reason: Protocol Last Admin: 01/20/18 21:39 Dose: Not Given Potassium Chloride (Klor-Con 10) 10 meq PO BRK [facility] Last Admin: 01/20/18 09:18 Dose: 10 meq Rosuvastatin Calcium (Crestor) 5 mg PO HS [facility] Last Admin: 01/20/18 21:37 Dose: 5 mg Tamsulosin HCl (Flomax) 0.4 mg PO DAILY [facility] Last Admin: 01/20/18 09:18 Dose: 0.4 mg - Labs Labs: 01/20/18 06:18 01/20/18 06:16 PT 15.7 SECONDS (9.7-12.2) H 01/13/18 15:13 INR 1.4 01/13/18 15:13 APTT 92 SECONDS (21-34) H D 01/16/18 06:14 Assessment and Plan - Assessment and Plan (Free Text) Assessment: Patient seen and evaluated personally by me Plan of care d/w the director medical affairs and as documented
[2018-01-20] MEDS ORDERED: Potassium Chloride 20 mEq ER Tab PO STA (20:05)
[2018-01-20 20:39] LABS: SQUAMOUS EPITHIAL 1 /hpf (0-5); URINE BACTERIA OCC (<OCC); URINE BILIRUBIN NEGATIVE (NEGATIVE); URINE BLOOD 1+ (NEGATIVE); URINE CLARITY Clear (Clear); URINE COLOR Yellow (YELLOW); URINE GLUCOSE (UA) NORMAL (Normal); URINE LEUKOCYTE ESTERASE NEG Leu/uL (Negative); URINE PROTEIN NEGATIVE (NEGATIVE)
--- NOTE | 2018-01-20 20:54 | CP.PCM.PN ---
Subjective - Date & Time of Evaluation Date of Evaluation: 01/20/18 Time of Evaluation: 17:00 - Subjective Subjective: dictated Objective - Vital Signs/Intake and Output Vital Signs (last 24 hours): Temp Pulse Resp BP Pulse Ox 97.8 F 66 27 H 125/73 99 01/20/18 16:00 01/20/18 19:15 01/20/18 19:15 01/20/18 19:15 01/20/18 19:15 Intake and Output: 01/20/18 01/21/18 18:59 06:59 Intake Total 750 50 Output Total 400 0 Balance 350 50 - Medications Medications: Current Medications Acetazolamide (Diamox 250 Mg Tab) 250 mg PO BID [facility] Last Admin: 01/20/18 18:28 Dose: 250 mg Albuterol/Ipratropium (Duoneb 3 Mg/0.5 Mg (3 Ml) Ud) 3 ml INH RQ4 [facility] Last Admin: 01/20/18 19:08 Dose: 3 ml Aspirin (Aspirin Chewable) 81 mg PO DAILY [facility] Last Admin: 01/20/18 09:18 Dose: 81 mg Famotidine (Pepcid) 20 mg GT DAILY [facility] Last Admin: 01/20/18 09:18 Dose: 20 mg Heparin Sodium (Porcine) (Heparin) 5,000 units SC Q8 [facility] Last Admin: 01/20/18 14:45 Dose: 5,000 units Vancomycin/Sodium Chloride (Vancomycin 1 Gm/Ns 200 Ml) 1 gm in 200 mls @ 133 mls/hr IVPB Q12H [facility] PRN Reason: Protocol Stop: 01/23/18 21:01 Last Admin: 01/20/18 08:01 Dose: 133 mls/hr Insulin Aspart (Novolog) 0 unit SC ACHS [facility] PRN Reason: Protocol Last Admin: 01/20/18 17:16 Dose: Not Given Potassium Chloride (Klor-Con 10) 10 meq PO BRK [facility] Last Admin: 01/20/18 09:18 Dose: 10 meq Rosuvastatin Calcium (Crestor) 5 mg PO HS [facility] Last Admin: 01/19/18 21:33 Dose: Not Given Tamsulosin HCl (Flomax) 0.4 mg PO DAILY [facility] Last Admin: 01/20/18 09:18 Dose: 0.4 mg - Labs Labs: 01/20/18 06:18 01/20/18 06:16 PT 15.7 SECONDS (9.7-12.2) H 01/13/18 15:13 INR 1.4 01/13/18 15:13 APTT 92 SECONDS (21-34) H D 01/16/18 06:14
--- NOTE | 2018-01-20 21:48 | CP.PCM.PN ---
Subjective - Date & Time of Evaluation Date of Evaluation: 01/20/18 Time of Evaluation: 11:30 - Subjective Subjective: clinically same Objective - Vital Signs/Intake and Output Vital Signs (last 24 hours): Temp Pulse Resp BP Pulse Ox 97.8 F 61 20 127/71 100 01/20/18 16:00 01/20/18 21:00 01/20/18 21:00 01/20/18 20:15 01/20/18 21:00 Intake and Output: 01/20/18 01/21/18 18:59 06:59 Intake Total 750 50 Output Total 400 1100 Balance 350 -1050 - Medications Medications: Current Medications Acetazolamide (Diamox 250 Mg Tab) 250 mg PO BID [facility] Last Admin: 01/20/18 18:28 Dose: 250 mg Albuterol/Ipratropium (Duoneb 3 Mg/0.5 Mg (3 Ml) Ud) 3 ml INH RQ4 [facility] Last Admin: 01/20/18 19:08 Dose: 3 ml Aspirin (Aspirin Chewable) 81 mg PO DAILY [facility] Last Admin: 01/20/18 09:18 Dose: 81 mg Famotidine (Pepcid) 20 mg GT DAILY [facility] Last Admin: 01/20/18 09:18 Dose: 20 mg Heparin Sodium (Porcine) (Heparin) 5,000 units SC Q8 [facility] Last Admin: 01/20/18 21:37 Dose: 5,000 units Vancomycin/Sodium Chloride (Vancomycin 1 Gm/Ns 200 Ml) 1 gm in 200 mls @ 133 mls/hr IVPB Q12H [facility] PRN Reason: Protocol Stop: 01/23/18 21:01 Last Admin: 01/20/18 21:37 Dose: 133 mls/hr Insulin Aspart (Novolog) 0 unit SC ACHS [facility] PRN Reason: Protocol Last Admin: 01/20/18 21:39 Dose: Not Given Potassium Chloride (Klor-Con 10) 10 meq PO BRK [facility] Last Admin: 01/20/18 09:18 Dose: 10 meq Rosuvastatin Calcium (Crestor) 5 mg PO HS [facility] Last Admin: 01/20/18 21:37 Dose: 5 mg Tamsulosin HCl (Flomax) 0.4 mg PO DAILY [facility] Last Admin: 01/20/18 09:18 Dose: 0.4 mg - Labs Labs: 01/20/18 06:18 01/20/18 06:16 PT 15.7 SECONDS (9.7-12.2) H 01/13/18 15:13 INR 1.4 01/13/18 15:13 APTT 92 SECONDS (21-34) H D 01/16/18 06:14 Assessment and Plan (1) Atrial fibrillation Status: Acute (2) Fever Status: Acute (3) Mental status alteration Status: Acute (4) UTI (urinary tract infection) Status: Acute (5) BPH (benign prostatic hyperplasia) Status: Acute (6) COPD (chronic obstructive pulmonary disease) Status: Acute (7) Congestive heart failure (CHF) Status: Acute (8) GERD (gastroesophageal reflux disease) Status: Acute (9) Hematuria Status: Acute (10) Hypertension Status: Acute (11) Pneumonia Status: Acute (12) Urinary retention Status: Acute
[2018-01-21] MEDS: Albuterol-Ipratrop 3 mg / 0.5 (3 ml) UD INH SCH ×7 (01:44→23:56)
--- NOTE | 2018-01-21 01:45 | PN ---
DATE: 01/20/2018 SUBJECTIVE: The patient remains afebrile. PHYSICAL EXAMINATION: VITAL SIGNS: Blood pressure is 109/52, respirations are 25, heart rate of 64, appeared to be atrial fibrillation on the monitor. HEENT: Head is atraumatic. Left eye, he has ptosis. NECK: Supple. JVP is flat. He is on nasal O2. LUNGS: Had coarse breath sounds. HEART: S1, S2 are irregularly irregular. ABDOMEN: Soft, nontender. No guarding, no rigidity present. EXTREMITIES: Bilaterally were moist with edema, swelling and stasis dermatitis but no open wounds anteriorly noted. ASSESSMENT AND PLAN: His last urine culture from 01/18/2018 is negative. He did come with Proteus in the blood. I wanted to do a CAT scan last night, but he was unstable, so it was canceled. We will need CAT scan of the abdomen and pelvis at some point now, and he is stable to go as he did come in with Proteus septicemia which probably want to rule out outlet obstruction but creatinine is normal now at 0.8. His carbon dioxide is 45. Cultures are negative right now. So at this time, I am looking for the echocardiographic report. Echocardiographic report was done on 01/13/2018 which shows a suboptimal study, technically very difficult due to poor acoustic window, left ventricle not visualized, right ventricle moderately dilated, systolic function appears resolved. There is moderate tricuspid regurgitation. Right ventricular pressure is estimated at 45-50 with moderate hypertension. There is no gross pericardial effusion. The inferior vena cava is dilated but collapsed. He has severe moderate tricuspid regurgitation and other than that, there is a poor window. We will continue meropenem at this time. He will at least need 14-21 days of meropenem. We started it on 01/13/2018, so he has received at least seven to eight days of it, and we will continue that. We will follow and may at some point do either a CAT scan of abdomen and pelvis or may need stable to go with oral contrast. Juan Duong MD
[2018-01-21 06:30] LABS: BASO % 0.1 % (0.0-2.0); EOS # 0.1 K/uL (0.0-0.7); EOS % 0.6 % (0.0-4.0); LYMPH # 3.1 K/uL (1.0-4.3); MEAN CELL VOLUME 81.7 fL (80.0-94.0); MEAN CORPUSCULAR HEMOGLOBIN 24.9 pg (27.0-31.0); MEAN CORPUSCULAR HGB CONC 30.5 g/dL (33.0-37.0); MONO # 0.9 K/uL (0.0-0.8); MONO % 7.1 % (0.0-10.0); NEUT # 8.7 K/uL (1.8-7.0); NEUT % 68.2 % (50.0-75.0); NRBC % 0.2 % (0.0-2.0); RBC 4.63 Mil/uL (4.40-5.90); RED CELL DISTRIBUTION WIDTH 17.4 % (11.5-14.5); WHITE BLOOD COUNT 12.7 K/uL (4.8-10.8)
[2018-01-21 06:33] LABS: HEMOGLOBIN 11.5 g/dL (12.0-18.0)
[2018-01-21 07:00] LABS: ALBUMIN 3.3 g/dL (3.5-5.0); ALT/SGPT 41 U/L (21-72); AST/SGOT 34 U/L (17-59); BLOOD UREA NITROGEN 34 mg/dL (9-20); CALCIUM 8.3 mg/dl (8.6-10.4); GFR NON-AFRICAN AMERICAN 59
[2018-01-21] MEDS: (Novolog) Insulin Aspart, Recombinant 100 u/ml 10 ml vial SC SCH ×4 (07:31→22:26)
[2018-01-21] MEDS: Potassium Chloride 10 mEq ER Tab PO SCH (07:51)
[2018-01-21] MEDS: Vancomycin 1 gm/NS 200 ml 1 GM/200 ML BAG IVPB SCH ×2 (07:59→20:44)
--- NOTE | 2018-01-21 10:35 | CP.PCM.PN ---
Subjective - Date & Time of Evaluation Date of Evaluation: 01/21/18 Time of Evaluation: 12:15 - Subjective Subjective: clinically same Objective - Vital Signs/Intake and Output Vital Signs (last 24 hours): Temp Pulse Resp BP Pulse Ox 98.2 F 65 16 122/71 89 L 01/21/18 07:57 01/21/18 07:57 01/21/18 07:57 01/21/18 07:57 01/21/18 02:00 Intake and Output: 01/21/18 01/21/18 06:59 18:59 Intake Total 250 650 Output Total 1550 Balance -1300 650 - Medications Medications: Current Medications Acetazolamide (Diamox 250 Mg Tab) 250 mg PO BID [facility] Last Admin: 01/21/18 08:59 Dose: 250 mg Albuterol/Ipratropium (Duoneb 3 Mg/0.5 Mg (3 Ml) Ud) 3 ml INH RQ4 [facility] Last Admin: 01/21/18 07:56 Dose: 3 ml Aspirin (Aspirin Chewable) 81 mg PO DAILY [facility] Last Admin: 01/21/18 09:00 Dose: 81 mg Famotidine (Pepcid) 20 mg GT DAILY [facility] Last Admin: 01/21/18 08:59 Dose: 20 mg Heparin Sodium (Porcine) (Heparin) 5,000 units SC Q8 [facility] Last Admin: 01/21/18 06:41 Dose: 5,000 units Vancomycin/Sodium Chloride (Vancomycin 1 Gm/Ns 200 Ml) 1 gm in 200 mls @ 133 mls/hr IVPB Q12H [facility] PRN Reason: Protocol Stop: 01/23/18 21:01 Last Admin: 01/21/18 07:59 Dose: 133 mls/hr Insulin Aspart (Novolog) 0 unit SC ACHS [facility] PRN Reason: Protocol Last Admin: 01/21/18 07:31 Dose: Not Given Potassium Chloride (Klor-Con 10) 10 meq PO BRK [facility] Last Admin: 01/21/18 07:51 Dose: 10 meq Potassium Chloride (Potassium Chloride Oral Soln) 40 meq PO Q4 [facility] Stop: 01/21/18 16:01 Rosuvastatin Calcium (Crestor) 5 mg PO HS [facility] Last Admin: 01/20/18 21:37 Dose: 5 mg Tamsulosin HCl (Flomax) 0.4 mg PO DAILY [facility] Last Admin: 01/21/18 08:59 Dose: 0.4 mg - Labs Labs: 01/21/18 06:22 01/21/18 06:17 PT 15.7 SECONDS (9.7-12.2) H 01/13/18 15:13 INR 1.4 01/13/18 15:13 APTT 92 SECONDS (21-34) H D 01/16/18 06:14 Assessment and Plan (1) Atrial fibrillation Status: Acute (2) Fever Status: Acute (3) Mental status alteration Status: Acute (4) UTI (urinary tract infection) Status: Acute (5) BPH (benign prostatic hyperplasia) Status: Acute (6) COPD (chronic obstructive pulmonary disease) Status: Acute (7) Congestive heart failure (CHF) Status: Acute (8) GERD (gastroesophageal reflux disease) Status: Acute (9) Hematuria Status: Acute (10) Hypertension Status: Acute (11) Pneumonia Status: Acute (12) Urinary retention Status: Acute
[2018-01-21] MEDS: Potassium Chloride 20 mEq/15 ml LIQ UD PO SCH ×2 (12:10→15:28)
--- NOTE | 2018-01-21 14:44 | CP.PCM.PN ---
Subjective - Date & Time of Evaluation Date of Evaluation: 01/21/18 Time of Evaluation: 14:25 - Subjective Subjective: dictated Objective - Vital Signs/Intake and Output Vital Signs (last 24 hours): Temp Pulse Resp BP Pulse Ox 98.2 F 79 22 132/81 89 L 01/21/18 11:49 01/21/18 11:49 01/21/18 11:49 01/21/18 11:49 01/21/18 02:00 Intake and Output: 01/21/18 01/21/18 06:59 18:59 Intake Total 250 650 Output Total 1550 Balance -1300 650 - Medications Medications: Current Medications Acetazolamide (Diamox 250 Mg Tab) 250 mg PO BID [facility] Last Admin: 01/21/18 08:59 Dose: 250 mg Albuterol/Ipratropium (Duoneb 3 Mg/0.5 Mg (3 Ml) Ud) 3 ml INH RQ4 [facility] Last Admin: 01/21/18 13:54 Dose: 3 ml Aspirin (Aspirin Chewable) 81 mg PO DAILY [facility] Last Admin: 01/21/18 09:00 Dose: 81 mg Famotidine (Pepcid) 20 mg GT DAILY [facility] Last Admin: 01/21/18 08:59 Dose: 20 mg Heparin Sodium (Porcine) (Heparin) 5,000 units SC Q8 [facility] Last Admin: 01/21/18 14:42 Dose: 5,000 units Vancomycin/Sodium Chloride (Vancomycin 1 Gm/Ns 200 Ml) 1 gm in 200 mls @ 133 mls/hr IVPB Q12H [facility] PRN Reason: Protocol Stop: 01/23/18 21:01 Last Admin: 01/21/18 07:59 Dose: 133 mls/hr Insulin Aspart (Novolog) 0 unit SC ACHS [facility] PRN Reason: Protocol Last Admin: 01/21/18 11:48 Dose: Not Given Potassium Chloride (Klor-Con 10) 10 meq PO BRK [facility] Last Admin: 01/21/18 07:51 Dose: 10 meq Potassium Chloride (Potassium Chloride Oral Soln) 40 meq PO Q4 [facility] Stop: 01/21/18 16:01 Last Admin: 01/21/18 12:10 Dose: 40 meq Rosuvastatin Calcium (Crestor) 5 mg PO HS [facility] Last Admin: 01/20/18 21:37 Dose: 5 mg Tamsulosin HCl (Flomax) 0.4 mg PO DAILY [facility] Last Admin: 01/21/18 08:59 Dose: 0.4 mg - Labs Labs: 01/21/18 06:22 01/21/18 06:17 PT 15.7 SECONDS (9.7-12.2) H 01/13/18 15:13 INR 1.4 01/13/18 15:13 APTT 92 SECONDS (21-34) H D 01/16/18 06:14
--- NOTE | 2018-01-21 19:16 | CP.PCM.PN ---
<Marily Farris E - Last Filed: 01/21/18 19:13> Subjective - Date & Time of Evaluation Date of Evaluation: 01/21/18 Time of Evaluation: 09:20 - Subjective Subjective: Cardiology progress note ( Dr. Kang's service) Patient was seen and examined at bedside. Patient states that he is doing well with no acute complaints. Patient denies chest pain, palpitations, SOB, dizziness. Patient states improving symptoms. Objective - Vital Signs/Intake and Output Vital Signs (last 24 hours): Temp Pulse Resp BP Pulse Ox 98.2 F 59 L 22 139/81 89 L 01/21/18 16:00 01/21/18 16:00 01/21/18 16:00 01/21/18 16:00 01/21/18 02:00 Intake and Output: 01/21/18 01/22/18 18:59 06:59 Intake Total 1010 Output Total 1250 Balance -240 - Medications Medications: Current Medications Acetazolamide (Diamox 250 Mg Tab) 250 mg PO BID [facility] Last Admin: 01/21/18 17:36 Dose: 250 mg Albuterol/Ipratropium (Duoneb 3 Mg/0.5 Mg (3 Ml) Ud) 3 ml INH RQ4 [facility] Last Admin: 01/21/18 19:02 Dose: Not Given Aspirin (Aspirin Chewable) 81 mg PO DAILY [facility] Last Admin: 01/21/18 09:00 Dose: 81 mg Famotidine (Pepcid) 20 mg GT DAILY [facility] Last Admin: 01/21/18 08:59 Dose: 20 mg Heparin Sodium (Porcine) (Heparin) 5,000 units SC Q8 [facility] Last Admin: 01/21/18 14:42 Dose: 5,000 units Vancomycin/Sodium Chloride (Vancomycin 1 Gm/Ns 200 Ml) 1 gm in 200 mls @ 133 mls/hr IVPB Q12H [facility] PRN Reason: Protocol Stop: 01/23/18 21:01 Last Admin: 01/21/18 07:59 Dose: 133 mls/hr Insulin Aspart (Novolog) 0 unit SC ACHS [facility] PRN Reason: Protocol Last Admin: 01/21/18 16:30 Dose: Not Given Potassium Chloride (Klor-Con 10) 10 meq PO BRK [facility] Last Admin: 01/21/18 07:51 Dose: 10 meq Potassium Chloride (K-Dur 20 Meq Er Tab) 40 meq PO Q4 [facility] Stop: 01/22/18 00:01 Rosuvastatin Calcium (Crestor) 5 mg PO HS [facility] Last Admin: 01/20/18 21:37 Dose: 5 mg Tamsulosin HCl (Flomax) 0.4 mg PO DAILY [facility] Last Admin: 01/21/18 08:59 Dose: 0.4 mg - Labs Labs: 01/21/18 06:22 01/21/18 06:17 PT 15.7 SECONDS (9.7-12.2) H 01/13/18 15:13 INR 1.4 01/13/18 15:13 APTT 92 SECONDS (21-34) H D 01/16/18 06:14 - Constitutional Appears: Well, No Acute Distress - Head Exam Head Exam: ATRAUMATIC - Eye Exam Eye Exam: EOMI - ENT Exam ENT Exam: Mucous Membranes Moist - Respiratory Exam Respiratory Exam: NORMAL BREATHING PATTERN - Cardiovascular Exam Cardiovascular Exam: REGULAR RHYTHM, +S1, +S2 - GI/Abdominal Exam GI & Abdominal Exam: Soft, Normal Bowel Sounds - Extremities Exam Additional comments: Left leg 1+ pitting edema - Psychiatric Exam Psychiatric exam: Normal Affect Assessment and Plan (1) Atrial fibrillation with rapid ventricular response Assessment & Plan: Currently not in atrial fibrillation, NSR Currently not on lopressor due to bradycardia Echo: Suboptimal study but read as normal as per second opinion ASA 81mg PO daily Status: Acute (2) SVT (supraventricular tachycardia) Assessment & Plan: Resolved Intermittent bradycardia Amiodarone discontinued Status: Acute (3) Sepsis Assessment & Plan: Resolved Sepsis on admission, resolved: Afebrile for > 48 hours, WBC trending down UA/UC positive for UTI UC: Proteus Mirabilis, enterococcus faecalis Repeat UC (01/18/18): Negative BC: Negative Meropenem 1gm IV Q8H, D/C Vanco 1gm IV Q12H Status: Acute (4) D-dimer, elevated Assessment & Plan: D-dimer : [address]: Not completed due to patient's conditionC Venous Doppler: Negative DVT ( RLE) Heparin drip initiated: Discontinued by ICU team Status: Acute (5) Prophylactic measure Assessment & Plan: DVT: Heparin 5,000 units SC Q8H GI: Pepcid 20mg GT daily No further cardiac intervention at this time All plans and management discussed with Dr. kang Status: Acute <Aaron Kang - Last Filed: 01/21/18 23:59> Objective - Vital Signs/Intake and Output Vital Signs (last 24 hours): Temp Pulse Resp BP Pulse Ox 97.4 F L 82 28 H 139/76 89 L 01/21/18 20:00 01/21/18 20:00 01/21/18 20:00 01/21/18 20:00 01/21/18 02:00 Intake and Output: 01/21/18 01/22/18 18:59 06:59 Intake Total 1010 Output Total 1250 Balance -240 - Medications Medications: Current Medications Acetazolamide (Diamox 250 Mg Tab) 250 mg PO BID [facility] Last Admin: 01/21/18 17:36 Dose: 250 mg Albuterol/Ipratropium (Duoneb 3 Mg/0.5 Mg (3 Ml) Ud) 3 ml INH RQ4 [facility] Last Admin: 01/21/18 23:56 Dose: 3 ml Aspirin (Aspirin Chewable) 81 mg PO DAILY [facility] Last Admin: 01/21/18 09:00 Dose: 81 mg Famotidine (Pepcid) 20 mg GT DAILY [facility] Last Admin: 01/21/18 08:59 Dose: 20 mg Heparin Sodium (Porcine) (Heparin) 5,000 units SC Q8 [facility]S [facility] Last Admin: 01/21/18 21:00 Dose: 5,000 units Vancomycin/Sodium Chloride (Vancomycin 1 Gm/Ns 200 Ml) 1 gm in 200 mls @ 133 mls/hr IVPB Q12H [facility] PRN Reason: Protocol Stop: 01/23/18 21:01 Last Admin: 01/21/18 20:44 Dose: 133 mls/hr Insulin Aspart (Novolog) 0 unit SC ACHS [facility] PRN Reason: Protocol Last Admin: 01/21/18 22:26 Dose: Not Given Potassium Chloride (Klor-Con 10) 10 meq PO BRK [facility] Last Admin: 01/21/18 07:51 Dose: 10 meq Potassium Chloride (K-Dur 20 Meq Er Tab) 40 meq PO Q4 [facility] Stop: 01/22/18 00:01 Last Admin: 01/21/18 20:17 Dose: 40 meq Rosuvastatin Calcium (Crestor) 5 mg PO HS [facility] Last Admin: 01/21/18 21:00 Dose: 5 mg Tamsulosin HCl (Flomax) 0.4 mg PO DAILY [facility] Last Admin: 01/21/18 08:59 Dose: 0.4 mg - Labs Labs: 01/21/18 06:22 01/21/18 06:17 PT 15.7 SECONDS (9.7-12.2) H 01/13/18 15:13 INR 1.4 01/13/18 15:13 APTT 92 SECONDS (21-34) H D 01/16/18 06:14 Assessment and Plan - Assessment and Plan (Free Text) Assessment: Patient seen and evaluated personally by in Plan of care d/w the medical records field technician and as documented
[2018-01-21] MEDS: Potassium Chloride 20 mEq ER Tab PO SCH (20:17)
--- NOTE | 2018-01-21 23:23 | PN ---
DATE: 01/21/2018 SUBJECTIVE: The patient is afebrile. He is feeling lot better. PHYSICAL EXAMINATION: HEENT: Head is atraumatic. NECK: Supple. LUNGS: Have coarse breath sounds. HEART: S1, S2 are regular. ABDOMEN: Soft, nontender. EXTREMITIES: Remain with edema and stasis dermatitis. Probably has chronic edema, unclear but there is no cellulitis noted. LABORATORY DATA: White count is 12.7, hemoglobin 11.5, hematocrit is 37.8, platelet count is 251, platelets are improving. His chemistry shows potassium is 3.1, CO2 is 42 and is elevated, creatinine is 1.2, maybe it is from the metabolic alkalosis secondary to volume contraction as they probably were diuresing him. ASSESSMENT AND PLAN: At this time, he is on Merrem. He did come in with a gram-negative septicemia and planned to continue meropenem. His kidney functions are unremarkable. We will order an abdominal ultrasound and we are planning to do a CT scan, but we will hold it off. We will follow urine culture that was ordered. His urine culture on 01/18/2018 was negative, but urine on 01/14/2018 showed Proteus and Enterococcus. He had Pseudomonas in the sputum, and he is on adequate antibiotics at this time. Juan Duong MD
[2018-01-22] MEDS: Potassium Chloride 20 mEq ER Tab PO SCH (00:16)
[2018-01-22] MEDS: Albuterol-Ipratrop 3 mg / 0.5 (3 ml) UD INH SCH ×5 (03:16→19:38)
[2018-01-22 06:26] LABS: BASO # 0.1 K/uL (0.0-0.2); BASO % 0.5 % (0.0-2.0); EOS # 0.5 K/uL (0.0-0.7); EOS % 4.2 % (0.0-4.0); HEMOGLOBIN 11.5 g/dL (12.0-18.0); LYMPH # 2.8 K/uL (1.0-4.3); LYMPH % 24.4 % (20.0-40.0); MEAN CELL VOLUME 82.2 fL (80.0-94.0); MEAN CORPUSCULAR HGB CONC 31.6 g/dL (33.0-37.0); MEAN PLATELET VOLUME 8.2 fL (7.2-11.7); MONO # 0.7 K/uL (0.0-0.8); MONO % 5.8 % (0.0-10.0); NEUT # 7.3 K/uL (1.8-7.0); NEUT % 65.1 % (50.0-75.0); NRBC % 0.1 % (0.0-2.0); RBC 4.42 Mil/uL (4.40-5.90); RED CELL DISTRIBUTION WIDTH 17.6 % (11.5-14.5); WHITE BLOOD COUNT 11.3 K/uL (4.8-10.8)
[2018-01-22 06:49] LABS: ALBUMIN 3.3 g/dL (3.5-5.0); ALT/SGPT 40 U/L (21-72); AST/SGOT 26 U/L (17-59); BLOOD UREA NITROGEN 26 mg/dL (9-20); CALCIUM 8.4 mg/dl (8.6-10.4); GFR NON-AFRICAN AMERICAN > 60
[2018-01-22] MEDS: (Novolog) Insulin Aspart, Recombinant 100 u/ml 10 ml vial SC SCH ×4 (07:30→21:16)
[2018-01-22] MEDS: Vancomycin 1 gm/NS 200 ml 1 GM/200 ML BAG IVPB SCH ×2 (08:54→21:02)
[2018-01-22] MEDS: Potassium Chloride 10 mEq ER Tab PO SCH (08:54)
--- NOTE | 2018-01-22 15:52 | CP.PCM.PN ---
Subjective - Date & Time of Evaluation Date of Evaluation: 01/22/18 Time of Evaluation: 13:00 - Subjective Subjective: clinically same Objective - Vital Signs/Intake and Output Vital Signs (last 24 hours): Temp Pulse Resp BP Pulse Ox 97.6 F 80 20 151/82 H 100 01/22/18 08:00 01/22/18 08:00 01/22/18 08:00 01/22/18 08:00 01/22/18 08:00 Intake and Output: 01/22/18 01/22/18 06:59 18:59 Intake Total 830 Output Total 1500 Balance -670 - Medications Medications: Current Medications Acetazolamide (Diamox 250 Mg Tab) 250 mg PO BID [facility] Last Admin: 01/22/18 09:17 Dose: 250 mg Albuterol/Ipratropium (Duoneb 3 Mg/0.5 Mg (3 Ml) Ud) 3 ml INH RQ4 [facility] Last Admin: 01/22/18 15:44 Dose: 3 ml Aspirin (Aspirin Chewable) 81 mg PO DAILY [facility] Last Admin: 01/22/18 09:17 Dose: 81 mg Famotidine (Pepcid) 20 mg GT DAILY [facility] Last Admin: 01/22/18 09:17 Dose: 20 mg Heparin Sodium (Porcine) (Heparin) 5,000 units SC Q8 [facility] Last Admin: 01/22/18 14:20 Dose: 5,000 units Vancomycin/Sodium Chloride (Vancomycin 1 Gm/Ns 200 Ml) 1 gm in 200 mls @ 133 mls/hr IVPB Q12H [facility] PRN Reason: Protocol Stop: 01/23/18 21:01 Last Admin: 01/22/18 08:54 Dose: 133 mls/hr Insulin Aspart (Novolog) 0 unit SC ACHS [facility] PRN Reason: Protocol Last Admin: 01/22/18 11:30 Dose: Not Given Potassium Chloride (Klor-Con 10) 10 meq PO BRK [facility] Last Admin: 01/22/18 08:54 Dose: 10 meq Rosuvastatin Calcium (Crestor) 5 mg PO HS [facility] Last Admin: 01/21/18 21:00 Dose: 5 mg Tamsulosin HCl (Flomax) 0.4 mg PO DAILY [facility] Last Admin: 01/22/18 09:17 Dose: 0.4 mg - Labs Labs: 01/22/18 06:12 01/22/18 06:12 PT 15.7 SECONDS (9.7-12.2) H 01/13/18 15:13 INR 1.4 01/13/18 15:13 APTT 92 SECONDS (21-34) H D 01/16/18 06:14 Assessment and Plan (1) Atrial fibrillation Status: Acute (2) Fever Status: Acute (3) Mental status alteration Status: Acute (4) UTI (urinary tract infection) Status: Acute (5) BPH (benign prostatic hyperplasia) Status: Acute (6) COPD (chronic obstructive pulmonary disease) Status: Acute (7) Congestive heart failure (CHF) Status: Acute (8) GERD (gastroesophageal reflux disease) Status: Acute (9) Hematuria Status: Acute (10) Hypertension Status: Acute (11) Pneumonia Status: Acute (12) Urinary retention Status: Acute
--- NOTE | 2018-01-22 23:20 | CP.PCM.PN ---
Subjective - Date & Time of Evaluation Date of Evaluation: 01/22/18 Time of Evaluation: 10:30 - Subjective Subjective: Patient seen and evaluated denies chest pain and dyspnea No cardiac events noted Objective - Vital Signs/Intake and Output Vital Signs (last 24 hours): Temp Pulse Resp BP Pulse Ox 98.1 F 78 20 131/78 98 01/22/18 16:00 01/22/18 16:00 01/22/18 16:00 01/22/18 16:00 01/22/18 16:00 Intake and Output: 01/22/18 01/23/18 18:59 06:59 Intake Total 350 Output Total 800 Balance -450 - Medications Medications: Current Medications Acetazolamide (Diamox 250 Mg Tab) 250 mg PO BID [facility] Last Admin: 01/22/18 18:52 Dose: 250 mg Albuterol/Ipratropium (Duoneb 3 Mg/0.5 Mg (3 Ml) Ud) 3 ml INH RQ4 [facility] Last Admin: 01/22/18 19:38 Dose: 3 ml Aspirin (Aspirin Chewable) 81 mg PO DAILY [facility] Last Admin: 01/22/18 09:17 Dose: 81 mg Famotidine (Pepcid) 20 mg GT DAILY [facility] Last Admin: 01/22/18 09:17 Dose: 20 mg Heparin Sodium (Porcine) (Heparin) 5,000 units SC Q8 [facility] Last Admin: 01/22/18 21:02 Dose: 5,000 units Vancomycin/Sodium Chloride (Vancomycin 1 Gm/Ns 200 Ml) 1 gm in 200 mls @ 133 mls/hr IVPB Q12H [facility] PRN Reason: Protocol Stop: 01/23/18 21:01 Last Admin: 01/22/18 21:02 Dose: 133 mls/hr Insulin Aspart (Novolog) 0 unit SC ACHS [facility] PRN Reason: Protocol Last Admin: 01/22/18 21:16 Dose: Not Given Potassium Chloride (Klor-Con 10) 10 meq PO BRK [facility] Last Admin: 01/22/18 08:54 Dose: 10 meq Rosuvastatin Calcium (Crestor) 5 mg PO HS [facility] Last Admin: 01/22/18 21:02 Dose: 5 mg Tamsulosin HCl (Flomax) 0.4 mg PO DAILY [facility] Last Admin: 01/22/18 09:17 Dose: 0.4 mg - Labs Labs: 01/22/18 06:12 01/22/18 06:12 PT 15.7 SECONDS (9.7-12.2) H 01/13/18 15:13 INR 1.4 01/13/18 15:13 APTT 92 SECONDS (21-34) H D 01/16/18 06:14
[2018-01-23] MEDS: Albuterol-Ipratrop 3 mg / 0.5 (3 ml) UD INH SCH ×7 (00:25→23:47)
--- NOTE | 2018-01-23 02:56 | PN ---
DATE: 01/22/2018 SUBJECTIVE: The patient is afebrile. He is appearing well. OBJECTIVE: VITAL SIGNS: T-max is 98.1, pulse 78, blood pressure 111/78, respirations are 20. HEENT: Head is atraumatic. NECK: Supple. LUNGS: Clear. Decreased breath sounds. ABDOMEN: Soft, nontender. EXTREMITIES: Remain with edema. Labs are noted. Labs show white count is 11.3, hemoglobin 11.5, hematocrit 36.3, platelet count is 229. Sodium is 150, is high; BUN is 25, creatinine is 1. He has an indwelling Olivares catheter at this time, and I have requested a CAT scan of abdomen and pelvis as he did come in with gram-negative septicemia, and we will follow that, and echo report is noted from 01/13. Echo was suboptimal, it mentions moderate tricuspid regurgitation and right ventricular systolic pressure is compatible with moderate hypertension, it is normal but they did not mention any vegetation. He will need follow up with strategic sourcing consultant which is ongoing at this time, and he is on IV antibiotics for the gram-negative septicemia, and sputum had Pseudomonas and urine had Proteus as well as Enterococcus faecalis, and the blood cultures had Proteus. Since he had Proteus, we have continued meropenem, but at this time, I guess with the Olivares catheter, his creatinine is becoming normal. We will get a CAT scan to rule out any hydronephrosis or any obstruction secondary to prostate but this seems to have resolved with the presence of Olivares catheter. Juan Duong MD
[2018-01-23 06:27] LABS: BASO % 0.2 % (0.0-2.0); EOS # 0.5 K/uL (0.0-0.7); HEMOGLOBIN 10.5 g/dL (12.0-18.0); LYMPH # 2.5 K/uL (1.0-4.3); LYMPH % 27.4 % (20.0-40.0); MEAN CELL VOLUME 83.1 fL (80.0-94.0); MEAN CORPUSCULAR HEMOGLOBIN 25.8 pg (27.0-31.0); MEAN CORPUSCULAR HGB CONC 31.1 g/dL (33.0-37.0); MEAN PLATELET VOLUME 8.2 fL (7.2-11.7); MONO # 0.6 K/uL (0.0-0.8); MONO % 6.7 % (0.0-10.0); NEUT # 5.4 K/uL (1.8-7.0); NEUT % 60.7 % (50.0-75.0); RBC 4.05 Mil/uL (4.40-5.90); RED CELL DISTRIBUTION WIDTH 17.9 % (11.5-14.5)
[2018-01-23 06:40] LABS: ALB/GLOB RATIO 0.9 (1.0-2.1); ALT/SGPT 34 U/L (21-72); AST/SGOT 17 U/L (17-59); BLOOD UREA NITROGEN 19 mg/dL (9-20); CALCIUM 8.3 mg/dl (8.6-10.4); GFR NON-AFRICAN AMERICAN > 60
[2018-01-23] MEDS: (Novolog) Insulin Aspart, Recombinant 100 u/ml 10 ml vial SC SCH ×4 (08:05→21:32)
[2018-01-23] MEDS: Potassium Chloride 10 mEq ER Tab PO SCH (08:28)
[2018-01-23] MEDS: Vancomycin 1 gm/NS 200 ml 1 GM/200 ML BAG IVPB SCH ×2 (08:30→21:31)
[2018-01-23] MEDS ORDERED: Iohexol 240 (50 ml) PO ONE (11:00)
--- NOTE | 2018-01-23 13:45 | CT ---
Date of service: 01/23/2018 PROCEDURE: CT Abdomen and Pelvis without intravenous contrast HISTORY: POSITIVE GRAM NEG SEPTICEMIA COMPARISON: None. TECHNIQUE: Contiguous images were obtained from the domes of the diaphragms to the upper thighs without the administration of intravenous contrast. Oral contrast was not administered. Radiation dose: Total exam DLP = 851.1 mGy-cm. This CT exam was performed using one or more of the following dose reduction techniques: Automated exposure control, adjustment of the mA and/or kV according to patient size, and/or use of iterative reconstruction technique. FINDINGS: LOWER THORAX: Partially imaged catheter tip terminating at the cavoatrial junction. Cardiomegaly. Small bilateral pleural effusions with subjacent atelectasis. LIVER: Unremarkable. No gross lesion or ductal dilatation. GALLBLADDER AND BILE DUCTS: Unremarkable. PANCREAS: Unremarkable. No gross lesion or ductal dilatation. SPLEEN: Unremarkable. ADRENALS: Unremarkable. No mass. KIDNEYS AND URETERS: Bilateral nonspecific perinephric stranding. Left upper pole cyst with trace peripheral calcification measuring 4.4 x 4.2 cm. No hydronephrosis. No solid mass. VASCULATURE: Unremarkable. No aortic aneurysm. BOWEL: Colonic diverticulosis. No obstruction. No gross mural thickening. APPENDIX: No findings to suggest acute appendicitis. PERITONEUM: Nonobstructive bowel and fat containing umbilical hernia Small bilateral fat containing inguinal hernias. No free fluid. No free air. LYMPH NODES: Unremarkable. No enlarged lymph nodes. BLADDER: Mostly decompressed around a Olivares catheter however the large superior diverticulum remains patent with air. Thick walled appearance of bladder with perivesicular stranding. REPRODUCTIVE: Unremarkable. BONES: Spinal degenerative changes. OTHER FINDINGS: None. IMPRESSION: Small bilateral pleural effusions. Findings compatible with cystitis. Superior bladder diverticulum remains patent there. Additional stable findings as above.
[2018-01-23] MEDS ORDERED: Magnesium Hydroxide Susp 30 ml UD PO ONE (15:45)
--- NOTE | 2018-01-23 16:14 | CP.PCM.PN ---
Subjective - Date & Time of Evaluation Date of Evaluation: 01/23/18 Time of Evaluation: 13:15 - Subjective Subjective: clinically same Objective - Vital Signs/Intake and Output Vital Signs (last 24 hours): Temp Pulse Resp BP Pulse Ox 98.4 F 66 20 101/62 94 L 01/23/18 14:00 01/23/18 14:00 01/23/18 14:00 01/23/18 14:00 01/23/18 14:00 Intake and Output: 01/23/18 01/23/18 06:59 18:59 Intake Total 840 Output Total 1100 Balance -260 - Medications Medications: Current Medications Acetazolamide (Diamox 250 Mg Tab) 250 mg PO BID [facility] Last Admin: 01/23/18 10:10 Dose: 250 mg Albuterol/Ipratropium (Duoneb 3 Mg/0.5 Mg (3 Ml) Ud) 3 ml INH RQ4 [facility] Last Admin: 01/23/18 15:35 Dose: 3 ml Aspirin (Aspirin Chewable) 81 mg PO DAILY [facility] Last Admin: 01/23/18 10:10 Dose: 81 mg Famotidine (Pepcid) 20 mg GT DAILY [facility] Last Admin: 01/23/18 10:10 Dose: 20 mg Heparin Sodium (Porcine) (Heparin) 5,000 units SC Q8 [facility] Last Admin: 01/23/18 14:45 Dose: 5,000 units Vancomycin/Sodium Chloride (Vancomycin 1 Gm/Ns 200 Ml) 1 gm in 200 mls @ 133 mls/hr IVPB Q12H [facility] PRN Reason: Protocol Stop: 01/23/18 21:01 Last Admin: 01/23/18 08:30 Dose: 133 mls/hr Meropenem 1 gm/ Sodium (Chloride) 100 mls @ 100 mls/hr IVPB Q8H [facility] PRN Reason: Protocol Insulin Aspart (Novolog) 0 unit SC ACHS [facility] PRN Reason: Protocol Last Admin: 01/23/18 11:45 Dose: Not Given Potassium Chloride (Klor-Con 10) 10 meq PO BRK [facility] Last Admin: 01/23/18 08:28 Dose: 10 meq Rosuvastatin Calcium (Crestor) 5 mg PO HS [facility] Last Admin: 01/22/18 21:02 Dose: 5 mg Tamsulosin HCl (Flomax) 0.4 mg PO DAILY [facility] Last Admin: 01/23/18 10:10 Dose: 0.4 mg - Labs Labs: 01/23/18 06:18 01/23/18 06:13 PT 15.7 SECONDS (9.7-12.2) H 01/13/18 15:13 INR 1.4 01/13/18 15:13 APTT 92 SECONDS (21-34) H D 01/16/18 06:14 - Constitutional Appears: Well - Head Exam Head Exam: ATRAUMATIC, NORMAL INSPECTION, NORMOCEPHALIC - Eye Exam Eye Exam: EOMI, Normal appearance, PERRL Pupil Exam: NORMAL ACCOMODATION, PERRL - ENT Exam ENT Exam: Mucous Membranes Moist, Normal Exam - Neck Exam Neck Exam: Full ROM, Normal Inspection. absent: Lymphadenopathy - Respiratory Exam Respiratory Exam: Decreased Breath Sounds - Cardiovascular Exam Cardiovascular Exam: REGULAR RHYTHM, +S1, +S2 - GI/Abdominal Exam GI & Abdominal Exam: Soft, Diminished Bowel Sounds - Rectal Exam Rectal Exam: Deferred Assessment and Plan (1) Atrial fibrillation Status: Acute (2) Fever Status: Acute (3) Mental status alteration Status: Acute (4) UTI (urinary tract infection) Status: Acute (5) BPH (benign prostatic hyperplasia) Status: Acute (6) COPD (chronic obstructive pulmonary disease) Status: Acute (7) Congestive heart failure (CHF) Status: Acute (8) GERD (gastroesophageal reflux disease) Status: Acute (9) Hematuria Status: Acute (10) Hypertension Status: Acute (11) Pneumonia Status: Acute (12) Urinary retention Status: Acute
[2018-01-23] MEDS: Meropenem 1 GM in Sodium Chloride 0.9% 100 ML IVPB SCH ×2 (16:50→23:28)
--- NOTE | 2018-01-23 20:20 | CP.PCM.PN ---
Subjective - Date & Time of Evaluation Date of Evaluation: 01/23/18 Time of Evaluation: 16:00 - Subjective Subjective: dictated Objective - Vital Signs/Intake and Output Vital Signs (last 24 hours): Temp Pulse Resp BP Pulse Ox 98.5 F 78 22 131/75 96 01/23/18 16:00 01/23/18 16:00 01/23/18 16:00 01/23/18 16:00 01/23/18 16:00 Intake and Output: 01/23/18 01/24/18 18:59 06:59 Intake Total 1600 Output Total 1000 Balance 600 - Medications Medications: Current Medications Acetazolamide (Diamox 250 Mg Tab) 250 mg PO BID [facility] Last Admin: 01/23/18 17:36 Dose: 250 mg Albuterol/Ipratropium (Duoneb 3 Mg/0.5 Mg (3 Ml) Ud) 3 ml INH RQ4 [facility] Last Admin: 01/23/18 19:30 Dose: 3 ml Aspirin (Aspirin Chewable) 81 mg PO DAILY [facility] Last Admin: 01/23/18 10:10 Dose: 81 mg Famotidine (Pepcid) 20 mg GT DAILY [facility] Last Admin: 01/23/18 10:10 Dose: 20 mg Vancomycin/Sodium Chloride (Vancomycin 1 Gm/Ns 200 Ml) 1 gm in 200 mls @ 133 mls/hr IVPB Q12H [facility] PRN Reason: Protocol Stop: 01/23/18 21:01 Last Admin: 01/23/18 08:30 Dose: 133 mls/hr Meropenem 1 gm/ Sodium (Chloride) 100 mls @ 100 mls/hr IVPB Q8H [facility] PRN Reason: Protocol Last Admin: 01/23/18 16:50 Dose: 100 mls/hr Insulin Aspart (Novolog) 0 unit SC ACHS [facility] PRN Reason: Protocol Last Admin: 01/23/18 16:51 Dose: Not Given Potassium Chloride (Klor-Con 10) 10 meq PO BRK [facility] Last Admin: 01/23/18 08:28 Dose: 10 meq Rosuvastatin Calcium (Crestor) 5 mg PO HS [facility] Last Admin: 01/22/18 21:02 Dose: 5 mg Tamsulosin HCl (Flomax) 0.4 mg PO DAILY [facility] Last Admin: 01/23/18 10:10 Dose: 0.4 mg - Labs Labs: 01/23/18 06:18 01/23/18 06:13 PT 15.7 SECONDS (9.7-12.2) H 01/13/18 15:13 INR 1.4 01/13/18 15:13 APTT 92 SECONDS (21-34) H D 01/16/18 06:14
[2018-01-23] MEDS ORDERED: Potassium Chloride 20 mEq ER Tab PO STA (21:40)
--- NOTE | 2018-01-23 23:08 | CP.PCM.PN ---
Subjective - Date & Time of Evaluation Date of Evaluation: 01/23/18 Time of Evaluation: 10:50 - Subjective Subjective: Patient seen and evaluated Denies chest pain and dyspnea No cardiac events noted Objective - Vital Signs/Intake and Output Vital Signs (last 24 hours): Temp Pulse Resp BP Pulse Ox 98 F 77 28 H 100/58 L 95 01/23/18 20:00 01/23/18 20:00 01/23/18 20:00 01/23/18 20:00 01/23/18 20:00 Intake and Output: 01/23/18 01/24/18 18:59 06:59 Intake Total 1600 Output Total 1000 Balance 600 - Medications Medications: Current Medications Acetazolamide (Diamox 250 Mg Tab) 250 mg PO BID [facility] Last Admin: 01/23/18 17:36 Dose: 250 mg Albuterol/Ipratropium (Duoneb 3 Mg/0.5 Mg (3 Ml) Ud) 3 ml INH RQ4 [facility] Last Admin: 01/23/18 19:30 Dose: 3 ml Aspirin (Aspirin Chewable) 81 mg PO DAILY [facility] Last Admin: 01/23/18 10:10 Dose: 81 mg Famotidine (Pepcid) 20 mg GT DAILY [facility] Last Admin: 01/23/18 10:10 Dose: 20 mg Meropenem 1 gm/ Sodium (Chloride) 100 mls @ 100 mls/hr IVPB Q8H [facility] PRN Reason: Protocol Last Admin: 01/23/18 16:50 Dose: 100 mls/hr Insulin Aspart (Novolog) 0 unit SC ACHS [facility] PRN Reason: Protocol Last Admin: 01/23/18 21:32 Dose: Not Given Potassium Chloride (Klor-Con 10) 10 meq PO BRK [facility] Last Admin: 01/23/18 08:28 Dose: 10 meq Rosuvastatin Calcium (Crestor) 5 mg PO HS [facility] Last Admin: 01/23/18 21:31 Dose: 5 mg Tamsulosin HCl (Flomax) 0.4 mg PO DAILY [facility] Last Admin: 01/23/18 10:10 Dose: 0.4 mg - Labs Labs: 01/23/18 06:18 01/23/18 06:13 PT 15.7 SECONDS (9.7-12.2) H 01/13/18 15:13 INR 1.4 01/13/18 15:13 APTT 92 SECONDS (21-34) H D 01/16/18 06:14
--- NOTE | 2018-01-24 00:15 | PN ---
DATE: 01/23/2018 SUBJECTIVE: The patient was seen today. He was not offering any complaints. Denies any chest pain. No shortness of breath. He is stable right now. PHYSICAL EXAMINATION: VITAL SIGNS: T-max is 98.1, pulse 70, blood pressure is 131/78, respirations are 20, saturation is 98%. HEENT: Head is atraumatic, normocephalic. NECK: Supple. LUNGS: Clear. Decreased breath sounds. ABDOMEN: Soft, nontender. No guarding, no rigidity present. EXTREMITIES: Have edema and stasis dermatitis. His feet are swollen and ankles are swollen. ASSESSMENT AND PLAN: He is to continue meropenem which was restarted as he does have gram-negative septicemia when he came in. He came with Proteus in the urine and Pseudomonas. He will need antibiotics for 14 days. I did do a CAT scan last night for him to see what was the exact problem leading on to septicemia, and it seems he has a bladder diverticulum along with cystitis and also bilateral nonspecific perinephric stranding, left upper pole cyst with trace peripheral calcifications. No hydronephrosis, no solid mass, but he has a superior bladder diverticulum and small bilateral pleural effusions. So at this time, we will be giving him antibiotics to cover for the pneumonia that he had and respiratory failure and right now needs to be treated for this septicemia. He has a diverticulum. May be, he will need urology evaluation as he does have a Olivares catheter at this time which may be solving partially his problem but may reoccur after the Olivares is discontinued. We will follow. Juan Duong MD
[2018-01-24] MEDS: Albuterol-Ipratrop 3 mg / 0.5 (3 ml) UD INH SCH ×4 (03:26→19:55)
[2018-01-24 08:02] LABS: ALB/GLOB RATIO 0.8 (1.0-2.1); ALBUMIN 2.8 g/dL (3.5-5.0); ALT/SGPT 24 U/L (21-72); AST/SGOT 17 U/L (17-59); BLOOD UREA NITROGEN 15 mg/dL (9-20); GFR NON-AFRICAN AMERICAN > 60
[2018-01-24] MEDS: Meropenem 1 GM in Sodium Chloride 0.9% 100 ML IVPB SCH ×3 (08:09→23:50)
[2018-01-24] MEDS: Potassium Chloride 10 mEq ER Tab PO SCH (08:24)
[2018-01-24] MEDS: (Novolog) Insulin Aspart, Recombinant 100 u/ml 10 ml vial SC SCH ×3 (08:25→16:04)
--- NOTE | 2018-01-24 14:22 | CP.PCM.PN ---
Subjective - Date & Time of Evaluation Date of Evaluation: 01/24/18 Time of Evaluation: 14:15 - Subjective Subjective: clinically same Objective - Vital Signs/Intake and Output Vital Signs (last 24 hours): Temp Pulse Resp BP Pulse Ox 98.7 F 72 24 107/60 97 01/24/18 12:00 01/24/18 12:00 01/24/18 12:00 01/24/18 12:00 01/24/18 12:00 Intake and Output: 01/24/18 01/24/18 06:59 18:59 Intake Total 540 400 Output Total 1050 Balance -510 400 - Medications Medications: Current Medications Acetazolamide (Diamox 250 Mg Tab) 250 mg PO BID [facility] Last Admin: 01/24/18 09:51 Dose: 250 mg Albuterol/Ipratropium (Duoneb 3 Mg/0.5 Mg (3 Ml) Ud) 3 ml INH RQ4 [facility] Last Admin: 01/24/18 07:38 Dose: 3 ml Alteplase, Recombinant (Cathflo 2 Mg Inj) 2 mg IV ONCE ONE Stop: 01/25/18 10:01 Aspirin (Aspirin Chewable) 81 mg PO DAILY [facility] Last Admin: 01/24/18 09:51 Dose: 81 mg Famotidine (Pepcid) 20 mg GT DAILY [facility] Last Admin: 01/24/18 09:52 Dose: 20 mg Heparin Sodium (Porcine) (Heparin) 5,000 units SC Q8 [facility] Meropenem 1 gm/ Sodium (Chloride) 100 mls @ 100 mls/hr IVPB Q8H [facility] PRN Reason: Protocol Last Admin: 01/24/18 08:09 Dose: 100 mls/hr Insulin Aspart (Novolog) 0 unit SC ACHS [facility] PRN Reason: Protocol Last Admin: 01/24/18 12:03 Dose: Not Given Potassium Chloride (Klor-Con 10) 10 meq PO BRK [facility] Last Admin: 01/24/18 08:24 Dose: 10 meq Rosuvastatin Calcium (Crestor) 5 mg PO HS [facility] Last Admin: 01/23/18 21:31 Dose: 5 mg Tamsulosin HCl (Flomax) 0.4 mg PO DAILY [facility] Last Admin: 01/24/18 09:51 Dose: 0.4 mg - Labs Labs: 01/23/18 06:18 01/24/18 07:34 PT 15.7 SECONDS (9.7-12.2) H 01/13/18 15:13 INR 1.4 01/13/18 15:13 APTT 92 SECONDS (21-34) H D 01/16/18 06:14 - Constitutional Appears: Well - Head Exam Head Exam: ATRAUMATIC, NORMAL INSPECTION, NORMOCEPHALIC - Eye Exam Eye Exam: EOMI, Normal appearance, PERRL Pupil Exam: NORMAL ACCOMODATION, PERRL - ENT Exam ENT Exam: Mucous Membranes Moist, Normal Exam - Neck Exam Neck Exam: Full ROM, Normal Inspection. absent: Lymphadenopathy - Respiratory Exam Respiratory Exam: Decreased Breath Sounds - Cardiovascular Exam Cardiovascular Exam: REGULAR RHYTHM, +S1, +S2 - GI/Abdominal Exam GI & Abdominal Exam: Soft, Diminished Bowel Sounds - Rectal Exam Rectal Exam: Deferred Assessment and Plan (1) Atrial fibrillation Status: Acute (2) Fever Status: Acute (3) Mental status alteration Status: Acute (4) UTI (urinary tract infection) Status: Acute (5) BPH (benign prostatic hyperplasia) Status: Acute (6) COPD (chronic obstructive pulmonary disease) Status: Acute (7) Congestive heart failure (CHF) Status: Acute (8) GERD (gastroesophageal reflux disease) Status: Acute (9) Hematuria Status: Acute (10) Hypertension Status: Acute (11) Pneumonia Status: Acute (12) Urinary retention Status: Acute - Assessment and Plan (Free Text) Plan: Continue IV meropenem Pulmonary consult Aspirin Feeding ID consult Transfer the patient to the floor today As ordered
--- NOTE | 2018-01-24 20:10 | CP.PCM.PN ---
Subjective - Date & Time of Evaluation Date of Evaluation: 01/24/18 Time of Evaluation: 15:20 - Subjective Subjective: Patient seen and evaluated Denies chest pain and dyspnea No cardiac events noted Objective - Vital Signs/Intake and Output Vital Signs (last 24 hours): Temp Pulse Resp BP Pulse Ox 98.2 F 69 20 126/72 100 01/24/18 16:30 01/24/18 16:30 01/24/18 16:30 01/24/18 16:30 01/24/18 16:30 Intake and Output: 01/24/18 01/25/18 18:59 06:59 Intake Total 700 Output Total 700 Balance 0 - Medications Medications: Current Medications Acetazolamide (Diamox 250 Mg Tab) 250 mg PO BID [facility] Last Admin: 01/24/18 17:48 Dose: 250 mg Albuterol/Ipratropium (Duoneb 3 Mg/0.5 Mg (3 Ml) Ud) 3 ml INH RQ4 [facility] Last Admin: 01/24/18 07:38 Dose: 3 ml Alteplase, Recombinant (Cathflo 2 Mg Inj) 2 mg IV ONCE ONE Stop: 01/25/18 10:01 Aspirin (Aspirin Chewable) 81 mg PO DAILY [facility] Last Admin: 01/24/18 09:51 Dose: 81 mg Famotidine (Pepcid) 20 mg GT DAILY [facility] Last Admin: 01/24/18 09:52 Dose: 20 mg Heparin Sodium (Porcine) (Heparin) 5,000 units SC Q8 [facility] Last Admin: 01/24/18 14:10 Dose: 5,000 units Meropenem 1 gm/ Sodium (Chloride) 100 mls @ 100 mls/hr IVPB Q8H [facility] PRN Reason: Protocol Last Admin: 01/24/18 15:11 Dose: 100 mls/hr Insulin Aspart (Novolog) 0 unit SC ACHS [facility] PRN Reason: Protocol Last Admin: 01/24/18 16:04 Dose: Not Given Potassium Chloride (Klor-Con 10) 10 meq PO BRK [facility] Last Admin: 01/24/18 08:24 Dose: 10 meq Rosuvastatin Calcium (Crestor) 5 mg PO HS [facility] Last Admin: 01/23/18 21:31 Dose: 5 mg Tamsulosin HCl (Flomax) 0.4 mg PO DAILY [facility] Last Admin: 09/16/18 09:51 Dose: 0.4 mg - Labs Labs: 01/23/18 06:18 01/24/18 07:34 PT 15.7 SECONDS (9.7-12.2) H 01/13/18 15:13 INR 1.4 01/13/18 15:13 APTT 92 SECONDS (21-34) H D 01/16/18 06:14
[2018-01-25] MEDS: Albuterol-Ipratrop 3 mg / 0.5 (3 ml) UD INH SCH ×4 (00:55→07:51)
[2018-01-25] MEDS: (Novolog) Insulin Aspart, Recombinant 100 u/ml 10 ml vial SC SCH ×4 (07:53→21:43)
[2018-01-25] MEDS: Potassium Chloride 10 mEq ER Tab PO SCH (08:14)
[2018-01-25] MEDS: Meropenem 1 GM in Sodium Chloride 0.9% 100 ML IVPB SCH ×2 (08:15→16:09)
--- NOTE | 2018-01-25 14:14 | CP.PCM.PN ---
Subjective - Date & Time of Evaluation Date of Evaluation: 01/25/18 Time of Evaluation: 14:09 - Subjective Subjective: 77 year old hisp male who was [place] with fever urine c&s + Proteus and enterococcus.PT had angeles inserted. CT shows a bladder diverticlum. pt is afibrile. A UTI bladder diverticlum Suggest aftr full course of sensitive antibiotics. give voding trial. check PVR with Bladder scan. IF pt is urinating ok may be discharged. suggest starting p t on flomax .[place] Objective - Vital Signs/Intake and Output Vital Signs (last 24 hours): Temp Pulse Resp BP Pulse Ox 98.6 F 76 18 107/69 94 L 01/25/18 07:00 01/25/18 07:00 01/25/18 07:00 01/25/18 07:00 01/25/18 07:00 Intake and Output: 01/25/18 01/25/18 06:59 18:59 Intake Total 350 Output Total 1650 Balance -1300 - Medications Medications: Current Medications Acetazolamide (Diamox 250 Mg Tab) 250 mg PO BID [facility] Last Admin: 01/25/18 10:04 Dose: 250 mg Aspirin (Aspirin Chewable) 81 mg PO DAILY [facility] Last Admin: 01/25/18 10:03 Dose: 81 mg Famotidine (Pepcid) 20 mg GT DAILY [facility] Last Admin: 01/25/18 10:03 Dose: 20 mg Heparin Sodium (Porcine) (Heparin) 5,000 units SC Q8 [facility] Last Admin: 01/25/18 05:26 Dose: 5,000 units Meropenem 1 gm/ Sodium (Chloride) 100 mls @ 100 mls/hr IVPB Q8H [facility] PRN Reason: Protocol Last Admin: 01/25/18 08:15 Dose: 100 mls/hr Insulin Aspart (Novolog) 0 unit SC ACHS [facility] PRN Reason: Protocol Last Admin: 01/25/18 11:40 Dose: Not Given Potassium Chloride (Klor-Con 10) 10 meq PO BRK [facility] Last Admin: 01/25/18 08:14 Dose: 10 meq Rosuvastatin Calcium (Crestor) 5 mg PO HS [facility] Last Admin: 01/24/18 21:12 Dose: 5 mg Tamsulosin HCl (Flomax) 0.4 mg PO DAILY [facility] Last Admin: 01/25/18 10:03 Dose: 0.4 mg - Labs Labs: 01/23/18 06:18 01/24/18 07:34 PT 15.7 SECONDS (9.7-12.2) H 01/13/18 15:13 INR 1.4 01/13/18 15:13 APTT 92 SECONDS (21-34) H D 01/16/18 06:14
--- NOTE | 2018-01-25 15:29 | CP.PCM.PN ---
Subjective - Date & Time of Evaluation Date of Evaluation: 01/25/18 Time of Evaluation: 12:30 - Subjective Subjective: clinically same Objective - Vital Signs/Intake and Output Vital Signs (last 24 hours): Temp Pulse Resp BP Pulse Ox 98.6 F 76 18 107/69 94 L 01/25/18 07:00 01/25/18 07:00 01/25/18 07:00 01/25/18 07:00 01/25/18 07:00 Intake and Output: 01/25/18 01/25/18 06:59 18:59 Intake Total 350 450 Output Total 1650 1500 Balance -1300 -1050 - Medications Medications: Current Medications Acetazolamide (Diamox 250 Mg Tab) 250 mg PO BID [facility] Last Admin: 01/25/18 10:04 Dose: 250 mg Aspirin (Aspirin Chewable) 81 mg PO DAILY [facility] Last Admin: 01/25/18 10:03 Dose: 81 mg Famotidine (Pepcid) 20 mg GT DAILY [facility] Last Admin: 01/25/18 10:03 Dose: 20 mg Heparin Sodium (Porcine) (Heparin) 5,000 units SC Q8 [facility] Last Admin: 01/25/18 14:36 Dose: 5,000 units Meropenem 1 gm/ Sodium (Chloride) 100 mls @ 100 mls/hr IVPB Q8H [facility] PRN Reason: Protocol Last Admin: 01/25/18 08:15 Dose: 100 mls/hr Insulin Aspart (Novolog) 0 unit SC ACHS [facility]CLUD[facility] PRN Reason: Protocol Last Admin: 01/25/18 11:40 Dose: Not Given Potassium Chloride (Klor-Con 10) 10 meq PO BRK [facility] Last Admin: 01/25/18 08:14 Dose: 10 meq Rosuvastatin Calcium (Crestor) 5 mg PO HS [facility] Last Admin: 01/24/18 21:12 Dose: 5 mg Tamsulosin HCl (Flomax) 0.4 mg PO DAILY [facility] Last Admin: 01/25/18 10:03 Dose: 0.4 mg Tamsulosin HCl (Flomax) 0.4 mg PO DAILY [facility] - Labs Labs: 01/23/18 06:18 01/24/18 07:34 PT 15.7 SECONDS (9.7-12.2) H 01/13/18 15:13 INR 1.4 01/13/18 15:13 APTT 92 SECONDS (21-34) H D 01/16/18 06:14 - Constitutional Appears: Well - Head Exam Head Exam: ATRAUMATIC, NORMAL INSPECTION, NORMOCEPHALIC - Eye Exam Eye Exam: EOMI, Normal appearance, PERRL Pupil Exam: NORMAL ACCOMODATION, PERRL - ENT Exam ENT Exam: Mucous Membranes Moist, Normal Exam - Neck Exam Neck Exam: Full ROM, Normal Inspection. absent: Lymphadenopathy - Respiratory Exam Respiratory Exam: Decreased Breath Sounds - Cardiovascular Exam Cardiovascular Exam: REGULAR RHYTHM, +S1, +S2 - GI/Abdominal Exam GI & Abdominal Exam: Soft, Diminished Bowel Sounds - Rectal Exam Rectal Exam: Deferred Assessment and Plan (1) Atrial fibrillation Status: Acute (2) Fever Status: Acute (3) Mental status alteration Status: Acute (4) UTI (urinary tract infection) Status: Acute (5) BPH (benign prostatic hyperplasia) Status: Acute (6) COPD (chronic obstructive pulmonary disease) Status: Acute (7) Congestive heart failure (CHF) Status: Acute (8) GERD (gastroesophageal reflux disease) Status: Acute (9) Hematuria Status: Acute (10) Hypertension Status: Acute (11) Pneumonia Status: Acute (12) Urinary retention Status: Acute
--- NOTE | 2018-01-25 15:32 | CP.PCM.PN ---
<Marily Farris E - Last Filed: 01/25/18 15:30> Subjective - Date & Time of Evaluation Date of Evaluation: 01/25/18 Time of Evaluation: 09:45 - Subjective Subjective: Cardiology progress note ( Dr. Kang's service) Patient was seen and examined at bedside. Patient states that he is doing well with no acute complaints. Patient denies chest pain, palpitations, SOB, dizziness. Patient denies any new complaints or issues. Objective - Vital Signs/Intake and Output Vital Signs (last 24 hours): Temp Pulse Resp BP Pulse Ox 98.6 F 76 18 107/69 94 L 01/25/18 07:00 01/25/18 07:00 01/25/18 07:00 01/25/18 07:00 01/25/18 07:00 Intake and Output: 01/25/18 01/25/18 06:59 18:59 Intake Total 350 450 Output Total 1650 1500 Balance -1300 -1050 - Medications Medications: Current Medications Acetazolamide (Diamox 250 Mg Tab) 250 mg PO BID [facility] Last Admin: 01/25/18 10:04 Dose: 250 mg Aspirin (Aspirin Chewable) 81 mg PO DAILY [facility] Last Admin: 01/25/18 10:03 Dose: 81 mg Famotidine (Pepcid) 20 mg GT DAILY [facility] Last Admin: 01/25/18 10:03 Dose: 20 mg Heparin Sodium (Porcine) (Heparin) 5,000 units SC Q8 [facility] Last Admin: 01/25/18 14:36 Dose: 5,000 units Meropenem 1 gm/ Sodium (Chloride) 100 mls @ 100 mls/hr IVPB Q8H [facility] PRN Reason: Protocol Last Admin: 01/25/18 08:15 Dose: 100 mls/hr Insulin Aspart (Novolog) 0 unit SC ACHS [facility] PRN Reason: Protocol Last Admin: 01/25/18 11:40 Dose: Not Given Potassium Chloride (Klor-Con 10) 10 meq PO BRK [facility] Last Admin: 01/25/18 08:14 Dose: 10 meq Rosuvastatin Calcium (Crestor) 5 mg PO HS [facility] Last Admin: 01/24/18 21:12 Dose: 5 mg Tamsulosin HCl (Flomax) 0.4 mg PO DAILY [facility] Last Admin: 01/25/18 10:03 Dose: 0.4 mg Tamsulosin HCl (Flomax) 0.4 mg PO DAILY [facility] - Labs Labs: 01/23/18 06:18 01/24/18 07:34 PT 15.7 SECONDS (9.7-12.2) H 01/13/18 15:13 INR 1.4 01/13/18 15:13 APTT 92 SECONDS (21-34) H D 01/16/18 06:14 - Constitutional Appears: No Acute Distress - Head Exam Head Exam: ATRAUMATIC, NORMAL INSPECTION - Eye Exam Eye Exam: EOMI, Normal appearance - ENT Exam ENT Exam: Mucous Membranes Moist - Respiratory Exam Respiratory Exam: NORMAL BREATHING PATTERN - Cardiovascular Exam Cardiovascular Exam: REGULAR RHYTHM, +S1, +S2 - GI/Abdominal Exam GI & Abdominal Exam: Soft, Normal Bowel Sounds. absent: Rigid, Tenderness - Extremities Exam Additional comments: Left leg edema, improving - Neurological Exam Neurological Exam: Alert, Awake - Psychiatric Exam Psychiatric exam: Normal Affect - Skin Skin Exam: Normal Color Assessment and Plan (1) Atrial fibrillation with rapid ventricular response Assessment & Plan: Currently not in atrial fibrillation, NSR Currently not on lopressor due to bradycardia Echo: Suboptimal study but read as normal as per second opinion ASA 81mg PO daily Status: Acute (2) SVT (supraventricular tachycardia) Assessment & Plan: Resolved Intermittent bradycardia Amiodarone discontinued Status: Acute (3) Sepsis Assessment & Plan: Resolved Sepsis on admission, resolved: Afebrile for > 48 hours, WBC trending down UA/UC positive for UTI UC: Proteus Mirabilis, enterococcus faecalis Repeat UC (01/18/18): Negative BC: Negative Meropenem 1gm IV Q8H Status: Acute (4) Prophylactic measure Assessment & Plan: DVT: Heparin 5,000 units SC Q8H GI: Pepcid 20mg PO daily No further cardiac intervention at this time Awaiting authorization for rehab All plans and management discussed with Dr. kang Status: Acute <Aaron Kang - Last Filed: 01/26/18 06:00> Objective - Vital Signs/Intake and Output Vital Signs (last 24 hours): Temp Pulse Resp BP Pulse Ox 98.6 F 81 20 114/72 91 L 01/25/18 23:15 01/25/18 23:15 01/25/18 23:15 01/25/18 23:15 01/25/18 23:15 Intake and Output: 01/25/18 01/26/18 18:59 06:59 Intake Total 450 300 Output Total 1500 1500 Balance -1050 -1200 - Medications Medications: Current Medications Acetazolamide (Diamox 250 Mg Tab) 250 mg PO BID [facility] Last Admin: 01/25/18 18:11 Dose: 250 mg Aspirin (Aspirin Chewable) 81 mg PO DAILY [facility] Last Admin: 01/25/18 10:03 Dose: 81 mg Famotidine (Pepcid) 20 mg GT DAILY [facility] Last Admin: 01/25/18 10:03 Dose: 20 mg Heparin Sodium (Porcine) (Heparin) 5,000 units SC Q8 [facility] Last Admin: 01/25/18 21:16 Dose: 5,000 units Meropenem 1 gm/ Sodium (Chloride) 100 mls @ 100 mls/hr IVPB Q8H [facility] PRN Reason: Protocol Last Admin: 01/26/18 00:27 Dose: 100 mls/hr Insulin Aspart (Novolog) 0 unit SC ACHS [facility] PRN Reason: Protocol Last Admin: 01/25/18 21:43 Dose: Not Given Potassium Chloride (Klor-Con 10) 10 meq PO BRK [facility] Last Admin: 01/25/18 08:14 Dose: 10 meq Rosuvastatin Calcium (Crestor) 5 mg PO HS [facility] Last Admin: 01/25/18 21:14 Dose: 5 mg Tamsulosin HCl (Flomax) 0.4 mg PO DAILY [facility] Last Admin: 01/25/18 10:03 Dose: 0.4 mg Tamsulosin HCl (Flomax) 0.4 mg PO DAILY [facility] - Labs Labs: 01/23/18 06:18 01/24/18 07:34 PT 15.7 SECONDS (9.7-12.2) H 01/13/18 15:13 INR 1.4 01/13/18 15:13 APTT 92 SECONDS (21-34) H D 01/16/18 06:14 Assessment and Plan - Assessment and Plan (Free Text) Assessment: Patient seen and evaluated personally by nd Plan of care d/w the territory sales manager medical and as documented
--- NOTE | 2018-01-25 19:45 | CP.PCM.PN ---
Subjective - Date & Time of Evaluation Date of Evaluation: 01/25/18 Time of Evaluation: 12:35 - Subjective Subjective: dictated Objective - Vital Signs/Intake and Output Vital Signs (last 24 hours): Temp Pulse Resp BP Pulse Ox 97.7 F 82 18 116/68 95 01/25/18 15:00 01/25/18 15:00 01/25/18 15:00 01/25/18 15:00 01/25/18 15:00 Intake and Output: 01/25/18 01/26/18 18:59 06:59 Intake Total 450 Output Total 1500 Balance -1050 - Medications Medications: Current Medications Acetazolamide (Diamox 250 Mg Tab) 250 mg PO BID [facility] Last Admin: 01/25/18 18:11 Dose: 250 mg Aspirin (Aspirin Chewable) 81 mg PO DAILY [facility] Last Admin: 01/25/18 10:03 Dose: 81 mg Famotidine (Pepcid) 20 mg GT DAILY [facility] Last Admin: 01/25/18 10:03 Dose: 20 mg Heparin Sodium (Porcine) (Heparin) 5,000 units SC Q8 [facility] Last Admin: 01/25/18 14:36 Dose: 5,000 units Meropenem 1 gm/ Sodium (Chloride) 100 mls @ 100 mls/hr IVPB Q8H [facility] PRN Reason: Protocol Last Admin: 01/25/18 16:09 Dose: 100 mls/hr Insulin Aspart (Novolog) 0 unit SC ACHS [facility] PRN Reason: Protocol Last Admin: 01/25/18 17:03 Dose: Not Given Potassium Chloride (Klor-Con 10) 10 meq PO BRK [facility] Last Admin: 01/25/18 08:14 Dose: 10 meq Rosuvastatin Calcium (Crestor) 5 mg PO HS [facility] Last Admin: 01/24/18 21:12 Dose: 5 mg Tamsulosin HCl (Flomax) 0.4 mg PO DAILY [facility] Last Admin: 01/25/18 10:03 Dose: 0.4 mg Tamsulosin HCl (Flomax) 0.4 mg PO DAILY [facility] - Labs Labs: 01/23/18 06:18 01/24/18 07:34 PT 15.7 SECONDS (9.7-12.2) H 01/13/18 15:13 INR 1.4 01/13/18 15:13 APTT 92 SECONDS (21-34) H D 01/16/18 06:14
[2018-01-26] MEDS: Meropenem 1 GM in Sodium Chloride 0.9% 100 ML IVPB SCH ×3 (00:27→17:00)
--- NOTE | 2018-01-26 00:40 | PN ---
DATE: 01/25/2018 SUBJECTIVE: The patient was awake, alert. He has no new complaints. He has been tolerating IV antibiotics. He had a CAT scan, which showed cystitis and he has a indwelling Olivares catheter, I need a urologist to evaluate him because once we take out the catheter, he will have the same scenario. The patient denies any chest pain. No shortness of breath. No abdominal pain. He was seen by Dr. oRot today. Finally, he was seen by the urologist and CAT scan shows bladder diverticulum. ASSESSMENT AND PLAN: Now he is afebrile. If the patient is urinating, he may be discharged with Flomax. So, the patient does need 14 days total of the antibiotics and he was started on pseudomonas treatment after we got this on 01/13/2018. So from 01/13/2018 he needs few more days, 14 days from 01/13/2018 would take him to 01/28/2018. He will need antibiotic till 01/28/2018, but need to see if he can void on his own after the Olivares is taken out and urology evaluation is appreciated. Juan Duong MD
[2018-01-26] MEDS: Potassium Chloride 10 mEq ER Tab PO SCH (08:14)
[2018-01-26] MEDS: (Novolog) Insulin Aspart, Recombinant 100 u/ml 10 ml vial SC SCH ×4 (10:39→21:07)
--- NOTE | 2018-01-26 13:07 | RAD ---
Date of service: 01/26/2018 PROCEDURE: CHEST RADIOGRAPH, 1 VIEW HISTORY: shortness of breath COMPARISON: 01/19/2018. FINDINGS: LUNGS: Improved aeration of the lungs. PLEURA: No pneumothorax or pleural fluid seen. CARDIOVASCULAR: No radiographic findings to suggest acute or significant cardiovascular disease. OSSEOUS STRUCTURES: No significant abnormalities. VISUALIZED UPPER ABDOMEN: Normal. OTHER FINDINGS: PICC line in satisfactory position IMPRESSION: No active pulmonary disease. Resolved infiltrates. Stable and satisfactory position of PICC line.
[2018-01-26] MEDS: Albuterol-Ipratrop 3 mg / 0.5 (3 ml) UD INH SCH ×3 (13:38→23:50)
--- NOTE | 2018-01-26 17:07 | CP.PCM.PN ---
Subjective - Date & Time of Evaluation Date of Evaluation: 01/26/18 Time of Evaluation: 12:15 - Subjective Subjective: clinically same Objective - Vital Signs/Intake and Output Vital Signs (last 24 hours): Temp Pulse Resp BP Pulse Ox 98.2 F 71 18 131/72 99 01/26/18 15:05 01/26/18 15:05 01/26/18 15:05 01/26/18 15:05 01/26/18 15:05 Intake and Output: 01/26/18 01/26/18 06:59 18:59 Intake Total 300 400 Output Total 2100 500 Balance -1800 -100 - Medications Medications: Current Medications Acetazolamide (Diamox 250 Mg Tab) 250 mg PO BID [facility] Last Admin: 01/26/18 17:03 Dose: 250 mg Albuterol/Ipratropium (Duoneb 3 Mg/0.5 Mg (3 Ml) Ud) 3 ml INH RQ4 [facility] Last Admin: 01/26/18 13:38 Dose: Not Given Aspirin (Aspirin Chewable) 81 mg PO DAILY [facility] Last Admin: 01/26/18 10:38 Dose: 81 mg Famotidine (Pepcid) 20 mg GT DAILY [facility] Last Admin: 01/26/18 10:38 Dose: 20 mg Heparin Sodium (Porcine) (Heparin) 5,000 units SC Q8 [facility] Last Admin: 01/26/18 13:33 Dose: 5,000 units Meropenem 1 gm/ Sodium (Chloride) 100 mls @ 100 mls/hr IVPB Q8H [facility] PRN Reason: Protocol Last Admin: 01/26/18 17:00 Dose: 100 mls/hr Insulin Aspart (Novolog) 0 unit SC ACHS [facility] PRN Reason: Protocol Last Admin: 01/26/18 12:43 Dose: Not Given Potassium Chloride (Klor-Con 10) 10 meq PO BRK [facility] Last Admin: 01/26/18 08:14 Dose: 10 meq Rosuvastatin Calcium (Crestor) 5 mg PO HS [facility] Last Admin: 01/25/18 21:14 Dose: 5 mg Tamsulosin HCl (Flomax) 0.4 mg PO DAILY [facility] Last Admin: 01/26/18 10:38 Dose: 0.4 mg - Labs Labs: 01/23/18 06:18 01/24/18 07:34 PT 15.7 SECONDS (9.7-12.2) H 09/05/18 15:13 INR 1.4 01/13/18 15:13 APTT 92 SECONDS (21-34) H D 01/16/18 06:14 - Constitutional Appears: Well - Head Exam Head Exam: ATRAUMATIC, NORMAL INSPECTION, NORMOCEPHALIC - Eye Exam Eye Exam: EOMI, Normal appearance, PERRL Pupil Exam: NORMAL ACCOMODATION, PERRL - ENT Exam ENT Exam: Mucous Membranes Moist, Normal Exam - Neck Exam Neck Exam: Full ROM, Normal Inspection. absent: Lymphadenopathy - Respiratory Exam Respiratory Exam: Decreased Breath Sounds - Cardiovascular Exam Cardiovascular Exam: REGULAR RHYTHM, +S1, +S2 - GI/Abdominal Exam GI & Abdominal Exam: Soft, Diminished Bowel Sounds - Rectal Exam Rectal Exam: Deferred Assessment and Plan (1) Atrial fibrillation Status: Acute (2) Fever Status: Acute (3) Mental status alteration Status: Acute (4) UTI (urinary tract infection) Status: Acute (5) BPH (benign prostatic hyperplasia) Status: Acute (6) COPD (chronic obstructive pulmonary disease) Status: Acute (7) Congestive heart failure (CHF) Status: Acute (8) GERD (gastroesophageal reflux disease) Status: Acute (9) Hematuria Status: Acute (10) Hypertension Status: Acute (11) Pneumonia Status: Acute (12) Urinary retention Status: Acute
--- NOTE | 2018-01-26 22:34 | CP.PCM.PN ---
Subjective - Date & Time of Evaluation Date of Evaluation: 01/26/18 Time of Evaluation: 14:15 - Subjective Subjective: dictated Objective - Vital Signs/Intake and Output Vital Signs (last 24 hours): Temp Pulse Resp BP Pulse Ox 98 F 76 20 117/70 95 01/26/18 21:00 01/26/18 21:00 01/26/18 21:00 01/26/18 21:00 01/26/18 21:00 Intake and Output: 01/26/18 01/27/18 18:59 06:59 Intake Total 400 Output Total 500 500 Balance -100 -500 - Medications Medications: Current Medications Acetazolamide (Diamox 250 Mg Tab) 250 mg PO BID [facility] Last Admin: 01/26/18 17:03 Dose: 250 mg Albuterol/Ipratropium (Duoneb 3 Mg/0.5 Mg (3 Ml) Ud) 3 ml INH RQ4 [facility] Last Admin: 01/26/18 19:27 Dose: 3 ml Aspirin (Aspirin Chewable) 81 mg PO DAILY [facility] Last Admin: 01/26/18 10:38 Dose: 81 mg Famotidine (Pepcid) 20 mg GT DAILY [facility] Last Admin: 01/26/18 10:38 Dose: 20 mg Heparin Sodium (Porcine) (Heparin) 5,000 units SC Q8 [facility] Last Admin: 01/26/18 21:07 Dose: 5,000 units Meropenem 1 gm/ Sodium (Chloride) 100 mls @ 100 mls/hr IVPB Q8H [facility] PRN Reason: Protocol Last Admin: 01/26/18 17:00 Dose: 100 mls/hr Insulin Aspart (Novolog) 0 unit SC ACHS [facility] PRN Reason: Protocol Last Admin: 01/26/18 21:07 Dose: Not Given Potassium Chloride (Klor-Con 10) 10 meq PO BRK [facility] Last Admin: 01/26/18 08:14 Dose: 10 meq Rosuvastatin Calcium (Crestor) 5 mg PO HS [facility] Last Admin: 01/26/18 21:07 Dose: 5 mg Tamsulosin HCl (Flomax) 0.4 mg PO DAILY [facility] Last Admin: 01/26/18 10:38 Dose: 0.4 mg - Labs Labs: 01/23/18 06:18 01/24/18 07:34 PT 15.7 SECONDS (9.7-12.2) H 01/13/18 15:13 INR 1.4 01/13/18 15:13 APTT 92 SECONDS (21-34) H D 01/16/18 06:14
--- NOTE | 2018-01-27 01:29 | PN ---
DATE: 01/26/2018 SUBJECTIVE: The patient seems to be improving a lot. He is more awake and alert. He has no problems that he said he has to continue IV antibiotics to complete two weeks in total from the time we started. We did the CT scan and it showed cystitis and a bladder diverticulum. Dr. Root was consulted and he wants to give him a voiding trial, check the PVR with a bladder scan, give him voiding trial. If he is urinating okay, he may be discharged and to use Flomax. So, those are the plans. The patient is still on IV antibiotics. He is on IV antibiotics. He is status post respiratory failure, but he is breathing easier now. PHYSICAL EXAMINATION: VITAL SIGNS: T-max is 98, pulse 76, blood pressure 117/70, respirations are 20. HEENT: Head is atraumatic and normocephalic. NECK: Supple. LUNGS: Clear. Decreased breath sounds bilaterally. HEART: S1 and S2 are regular. ABDOMEN: Soft, nontender. No guarding. No rigidity present. EXTREMITIES: Remain with edema and some stasis dermatitis. LABORATORY DATA: Labs are noted. There are no new labs today. ASSESSMENT AND PLAN: He is on meropenem and to continue that. We will follow. Started on tamsulosin. Juan Duong MD
[2018-01-27] MEDS: Albuterol-Ipratrop 3 mg / 0.5 (3 ml) UD INH SCH ×6 (03:25→23:32)
[2018-01-27] MEDS: (Novolog) Insulin Aspart, Recombinant 100 u/ml 10 ml vial SC SCH ×4 (07:48→22:53)
[2018-01-27] MEDS: Meropenem 1 GM in Sodium Chloride 0.9% 100 ML IVPB SCH ×3 (09:00→16:28)
[2018-01-27] MEDS: Potassium Chloride 10 mEq ER Tab PO SCH (10:51)
--- NOTE | 2018-01-27 21:53 | CP.PCM.PN ---
Subjective - Date & Time of Evaluation Date of Evaluation: 01/27/18 Time of Evaluation: 11:00 - Subjective Subjective: clinically same Objective - Vital Signs/Intake and Output Vital Signs (last 24 hours): Temp Pulse Resp BP Pulse Ox 97.8 F 77 20 126/71 98 01/27/18 15:00 01/27/18 15:00 01/27/18 15:00 01/27/18 15:00 01/27/18 15:00 Intake and Output: 01/27/18 01/28/18 18:59 06:59 Intake Total 500 Output Total 700 Balance -200 - Medications Medications: Current Medications Acetazolamide (Diamox 250 Mg Tab) 250 mg PO BID [facility] Last Admin: 01/27/18 17:28 Dose: 250 mg Albuterol/Ipratropium (Duoneb 3 Mg/0.5 Mg (3 Ml) Ud) 3 ml INH RQ4 [facility] Last Admin: 01/27/18 19:21 Dose: Not Given Aspirin (Aspirin Chewable) 81 mg PO DAILY [facility] Last Admin: 01/27/18 10:51 Dose: 81 mg Famotidine (Pepcid) 20 mg GT DAILY [facility] Last Admin: 01/27/18 10:52 Dose: 20 mg Meropenem 1 gm/ Sodium (Chloride) 100 mls @ 100 mls/hr IVPB Q8H [facility] PRN Reason: Protocol Last Admin: 01/27/18 16:28 Dose: 100 mls/hr Insulin Aspart (Novolog) 0 unit SC ACHS [facility] PRN Reason: Protocol Last Admin: 01/27/18 16:58 Dose: Not Given Potassium Chloride (Klor-Con 10) 10 meq PO BRK [facility] Last Admin: 01/27/18 10:51 Dose: 10 meq Rosuvastatin Calcium (Crestor) 5 mg PO HS [facility] Last Admin: 01/27/18 21:18 Dose: 5 mg Tamsulosin HCl (Flomax) 0.4 mg PO DAILY [facility] Last Admin: 01/27/18 10:51 Dose: 0.4 mg - Labs Labs: 01/23/18 06:18 01/24/18 07:34 PT 15.7 SECONDS (9.7-12.2) H 01/13/18 15:13 INR 1.4 01/13/18 15:13 APTT 92 SECONDS (21-34) H D 01/16/18 06:14 Assessment and Plan (1) Atrial fibrillation Status: Acute (2) Fever Status: Acute (3) Mental status alteration Status: Acute (4) UTI (urinary tract infection) Status: Acute (5) BPH (benign prostatic hyperplasia) Status: Acute (6) COPD (chronic obstructive pulmonary disease) Status: Acute (7) Congestive heart failure (CHF) Status: Acute (8) GERD (gastroesophageal reflux disease) Status: Acute (9) Hematuria Status: Acute (10) Hypertension Status: Acute (11) Pneumonia Status: Acute (12) Urinary retention Status: Acute
[2018-01-28] MEDS: Meropenem 1 GM in Sodium Chloride 0.9% 100 ML IVPB SCH ×2 (00:03→09:05)
[2018-01-28] MEDS: Albuterol-Ipratrop 3 mg / 0.5 (3 ml) UD INH SCH ×4 (03:13→15:48)
[2018-01-28] MEDS: (Novolog) Insulin Aspart, Recombinant 100 u/ml 10 ml vial SC SCH ×2 (07:31→11:20)
[2018-01-28 07:44] VITALS: O2SAT 100
[2018-01-28] MEDS: Potassium Chloride 10 mEq ER Tab PO SCH (09:46)
[2018-01-28 13:38] LABS: BLOOD UREA NITROGEN 9 mg/dL (9-20); CALCIUM 8.5 mg/dl (8.6-10.4); GFR NON-AFRICAN AMERICAN > 60
--- NOTE | 2018-01-28 13:46 | CP.PCM.PN ---
Subjective - Date & Time of Evaluation Date of Evaluation: 01/28/18 Time of Evaluation: 13:15 - Subjective Subjective: dictated Objective - Vital Signs/Intake and Output Vital Signs (last 24 hours): Temp Pulse Resp BP Pulse Ox 97.8 F 77 18 125/72 100 01/28/18 07:10 01/28/18 07:10 01/28/18 07:10 01/28/18 07:10 01/28/18 07:10 Intake and Output: 01/28/18 01/28/18 06:59 18:59 Intake Total 580 Output Total 1550 Balance -970 - Medications Medications: Current Medications Acetazolamide (Diamox 250 Mg Tab) 250 mg PO BID [facility] Last Admin: 01/28/18 09:46 Dose: 250 mg Albuterol/Ipratropium (Duoneb 3 Mg/0.5 Mg (3 Ml) Ud) 3 ml INH RQ4 [facility] Last Admin: 01/28/18 11:00 Dose: Not Given Aspirin (Aspirin Chewable) 81 mg PO DAILY [facility] Last Admin: 01/28/18 09:46 Dose: 81 mg Famotidine (Pepcid) 20 mg GT DAILY [facility] Last Admin: 01/28/18 09:46 Dose: 20 mg Meropenem 1 gm/ Sodium (Chloride) 100 mls @ 100 mls/hr IVPB Q8H [facility] PRN Reason: Protocol Last Admin: 01/28/18 09:05 Dose: 100 mls/hr Insulin Aspart (Novolog) 0 unit SC ACHS [facility] PRN Reason: Protocol Last Admin: 01/28/18 11:20 Dose: Not Given Potassium Chloride (Klor-Con 10) 10 meq PO BRK [facility] Last Admin: 01/28/18 09:46 Dose: 10 meq Rosuvastatin Calcium (Crestor) 5 mg PO HS [facility] Last Admin: 01/27/18 21:18 Dose: 5 mg Tamsulosin HCl (Flomax) 0.4 mg PO DAILY [facility] Last Admin: 01/28/18 09:46 Dose: 0.4 mg - Labs Labs: 01/23/18 06:18 01/28/18 12:00 PT 15.7 SECONDS (9.7-12.2) H 01/13/18 15:13 INR 1.4 01/13/18 15:13 APTT 92 SECONDS (21-34) H D 01/16/18 06:14
--- NOTE | 2018-01-28 14:25 | PCM.HF ---
Heart Failure Core Measure - Heart Failure Ejection Fraction: 40 % or Greater JOAQUIN Inhibitor Prescribed: No Contraindication/Reason for not providing: EF>45 Beta-Nicho Prescribed: Metoprolol Succinate Angiotensin II Receptor Nicho Prescribed: No Contraindication/Reason for not providing: ef>45 AnticoagulationTherapy for Atrial Fibrillation/Atrialflutter: No Contraindication/Reason for not providing: no hx of a fib Aldosterone Antagonist Prescribed: No Contraindication/Reason for not providing: ef>45 Hydralazine Nitrate Prescribed: No Contraindication/Reason for not providing: ef>45 Implantable Cardioverter Defibrillator Therapy: No Contraindication/Reason for not providing: ef>45 Cardiac Resynchronization Therapy Prescribed: No Contraindication/Reason for not providing: ef>45 - Follow up Will be discharged to: Shelter Facility ([facility]) Follow Up Date (must be within 7 days from discharge): 02/01/18 Follow Up Time: 09:00
--- NOTE | 2018-01-28 14:26 | CP.PCM.PN ---
Subjective - Date & Time of Evaluation Date of Evaluation: 01/28/18 Time of Evaluation: 10:50 - Subjective Subjective: Patient seen today , awake, alert comfortable, NAD a febrile no overnight events reported by RN labs reviewed Objective - Vital Signs/Intake and Output Vital Signs (last 24 hours): Temp Pulse Resp BP Pulse Ox 97.8 F 77 18 125/72 100 01/28/18 07:10 01/28/18 07:10 01/28/18 07:10 01/28/18 07:10 01/28/18 07:10 Intake and Output: 01/28/18 01/28/18 06:59 18:59 Intake Total 580 Output Total 1550 Balance -970 - Medications Medications: Current Medications Acetazolamide (Diamox 250 Mg Tab) 250 mg PO BID [facility] Last Admin: 01/28/18 09:46 Dose: 250 mg Albuterol/Ipratropium (Duoneb 3 Mg/0.5 Mg (3 Ml) Ud) 3 ml INH RQ4 [facility] Last Admin: 01/28/18 11:00 Dose: Not Given Aspirin (Aspirin Chewable) 81 mg PO DAILY [facility] Last Admin: 01/28/18 09:46 Dose: 81 mg Famotidine (Pepcid) 20 mg GT DAILY [facility] Last Admin: 01/28/18 09:46 Dose: 20 mg Meropenem 1 gm/ Sodium (Chloride) 100 mls @ 100 mls/hr IVPB Q8H [facility] PRN Reason: Protocol Last Admin: 01/28/18 09:05 Dose: 100 mls/hr Insulin Aspart (Novolog) 0 unit SC ACHS [facility] PRN Reason: Protocol Last Admin: 01/28/18 11:20 Dose: Not Given Potassium Chloride (Klor-Con 10) 10 meq PO BRK [facility] Last Admin: 01/28/18 09:46 Dose: 10 meq Rosuvastatin Calcium (Crestor) 5 mg PO HS [facility] Last Admin: 01/27/18 21:18 Dose: 5 mg Tamsulosin HCl (Flomax) 0.4 mg PO DAILY [facility] Last Admin: 01/28/18 09:46 Dose: 0.4 mg - Labs Labs: 01/23/18 06:18 01/28/18 12:00 PT 15.7 SECONDS (9.7-12.2) H 01/13/18 15:13 INR 1.4 01/13/18 15:13 APTT 92 SECONDS (21-34) H D 01/16/18 06:14 Assessment and Plan - Assessment and Plan (Free Text) Assessment: A/P 77 year old male with history of diastolic CHF, COPD, diverticulitis, HTN, peripheral edema, pneumonia who presented from halfway for altered mental status, hypotensive with leukocytosis, resp failure s/p intubation and extubation Urine culture and blood culture - + Proteus M and patient treated with 14 days of merrum Repeat urine culture and blood culture- negative recent CXR -No active pulmonary disease. Resolved infiltrates. D/W Dr. Doyle , cleared fro discharge back to [place] from ID standpoint no antibiotics needed D/W Dr. Oseguera , cleared for discharge to [facility] today and he will follow the patient at [facility]
[2018-01-28 16:10] VITALS: BP 135/76; PULSE 79; RESP 20; TEMP 98.3
--- NOTE | 2018-01-28 16:12 | CP.PCM.PN ---
Subjective - Date & Time of Evaluation Date of Evaluation: 01/28/18 Time of Evaluation: 11:30 - Subjective Subjective: clinically same Objective - Vital Signs/Intake and Output Vital Signs (last 24 hours): Temp Pulse Resp BP Pulse Ox 98.3 F 79 20 135/76 100 01/28/18 15:45 01/28/18 15:45 01/28/18 15:45 01/28/18 15:45 01/28/18 15:45 Intake and Output: 01/28/18 01/28/18 06:59 18:59 Intake Total 580 Output Total 1550 Balance -970 - Medications Medications: Current Medications Acetazolamide (Diamox 250 Mg Tab) 250 mg PO BID [facility] Last Admin: 01/28/18 09:46 Dose: 250 mg Albuterol/Ipratropium (Duoneb 3 Mg/0.5 Mg (3 Ml) Ud) 3 ml INH RQ4 [facility] Last Admin: 01/28/18 15:48 Dose: 3 ml Aspirin (Aspirin Chewable) 81 mg PO DAILY [facility] Last Admin: 01/28/18 09:46 Dose: 81 mg Famotidine (Pepcid) 20 mg GT DAILY [facility] Last Admin: 01/28/18 09:46 Dose: 20 mg Meropenem 1 gm/ Sodium (Chloride) 100 mls @ 100 mls/hr IVPB Q8H [facility] PRN Reason: Protocol Last Admin: 01/28/18 09:05 Dose: 100 mls/hr Insulin Aspart (Novolog) 0 unit SC ACHS [facility] PRN Reason: Protocol Last Admin: 01/28/18 11:20 Dose: Not Given Potassium Chloride (Klor-Con 10) 10 meq PO BRK [facility] Last Admin: 01/28/18 09:46 Dose: 10 meq Rosuvastatin Calcium (Crestor) 5 mg PO HS [facility] Last Admin: 01/27/18 21:18 Dose: 5 mg Tamsulosin HCl (Flomax) 0.4 mg PO DAILY [facility] Last Admin: 01/28/18 09:46 Dose: 0.4 mg - Labs Labs: 01/23/18 06:18 01/28/18 12:00 PT 15.7 SECONDS (9.7-12.2) H 01/13/18 15:13 INR 1.4 01/13/18 15:13 APTT 92 SECONDS (21-34) H D 01/16/18 06:14 Assessment and Plan (1) Atrial fibrillation Status: Acute (2) Fever Status: Acute (3) Mental status alteration Status: Acute (4) UTI (urinary tract infection) Status: Acute (5) BPH (benign prostatic hyperplasia) Status: Acute (6) COPD (chronic obstructive pulmonary disease) Status: Acute (7) Congestive heart failure (CHF) Status: Acute (8) GERD (gastroesophageal reflux disease) Status: Acute (9) Hematuria Status: Acute (10) Hypertension Status: Acute (11) Pneumonia Status: Acute (12) Urinary retention Status: Acute
--- NOTE | 2018-01-28 22:46 | PN ---
DATE: 01/28/2018 INFECTIOUS DISEASE FOLLOWUP NOTE SUBJECTIVE: The patient was seen today. He was not complaining and he was in no respiratory distress. The SALES OFFICE ASSISTANT told me that he can go back to rehab. PHYSICAL EXAMINATION: VITAL SIGNS: T-max was 98.3, pulse is 79, blood pressure 135/76, respirations are 20. HEENT: Head is atraumatic, normocephalic. NECK: Supple. LUNGS: Clear. No crackles or rales heard. HEART: S1, S2 are regular. ABDOMEN: Soft, nontender. No guarding, no rigidity present. EXTREMITIES: Have bilateral edema and has ecchymosis. He has bilateral edema of the lower extremities with the stasis dermatitis, and bowel sounds are gurgling. He still has a Olivares catheter. I was told that they tried to get the catheter out so that he can void, but he could not void without it, so he is going to go with a Olivares catheter. At this time, bowel sounds are gurgling. I have given him antibiotics for 2 weeks for multiple organisms. He had proteus septicemia along with enterococcus, and he was treated for it. Last urine cultures are all negative. He also was with respiratory failure with pseudomonas and received meropenem for 2 weeks. At this point, I will discontinue the antibiotics, to continue with Flomax and to follow with the urologist as he has a bladder diverticulum and also came in with septicemia secondary to UTI. The patient is cleared to go back to rehab. Juan Duong MD
== END 2018-01-28 17:07 | DRG 870 ==
LOC: C.ER 12:07 → C.9E 14:05 → C.9I 18:22 → C.6T 01-24 16:31
PROVIDERS: ADMIT Internal Medicine Nephrology; ATTEND Internal Medicine Nephrology
PROC: 0BH17EZ Insertion of Endotracheal Airway into Trachea, Via Natural or Artificial Opening (ICD-10-PCS; principal; 2018-01-12)
PROC: 5A1955Z Respiratory Ventilation, Greater than 96 Consecutive Hours (ICD-10-PCS; 2018-01-12)
PROC: 06HY33Z Insertion of Infusion Device into Lower Vein, Percutaneous Approach (ICD-10-PCS; 2018-01-12)
PROC: 02HV33Z Insertion of Infusion Device into Superior Vena Cava, Percutaneous Approach (ICD-10-PCS; 2018-01-14)
DX: A41.50 Gram-negative sepsis, unspecified (principal); J96.01 Acute respiratory failure with hypoxia; I47.1 Supraventricular tachycardia; I50.32 Chronic diastolic (congestive) heart failure; J44.0 Chronic obstructive pulmonary disease with (acute) lower respiratory infection; K57.92 Diverticulitis of intestine, part unspecified, without perforation or abscess without bleeding; L03.116 Cellulitis of left lower limb; F03.90 Unspecified dementia, unspecified severity, without behavioral disturbance, psychotic disturbance, mood disturbance, and anxiety; I11.0 Hypertensive heart disease with heart failure; I48.91 Unspecified atrial fibrillation; N40.0 Benign prostatic hyperplasia without lower urinary tract symptoms; Z66 Do not resuscitate; Z87.891 Personal history of nicotine dependence; R65.20 Severe sepsis without septic shock; N30.91 Cystitis, unspecified with hematuria; M48.02 Spinal stenosis, cervical region; K21.9 Gastro-esophageal reflux disease without esophagitis

== ENCOUNTER 2018-02-06 23:00 | Inpatient (IN) | payer MEDICARE, MEDICAID, OTHER ==
[2018-02-06 23:01] VITALS: PULSE 86; BMI 32.9
[2018-02-06 23:40] LABS: VENOUS BLOOD GAS BASE EXCESS 5.5 mmol/L (0.0-2.0); VENOUS BLOOD GAS PCO2 74 mmHg (40-60); VENOUS BLOOD GAS PO2 36 mm/Hg (30-55); VENOUS BLOOD PH 7.28 (7.32-7.43)
[2018-02-06 23:57] LABS: SQUAMOUS EPITHIAL 11 /hpf (0-5); URINE BACTERIA RARE (<OCC); URINE BILIRUBIN NEGATIVE (NEGATIVE); URINE BLOOD 1+ (NEGATIVE); URINE CLARITY Hazy (Clear); URINE COLOR Amber (YELLOW); URINE GLUCOSE (UA) NORMAL (Normal); URINE LEUKOCYTE ESTERASE 3+ Leu/uL (Negative); URINE PROTEIN 1+ mg/dL (NEGATIVE); URINE UROBILINOGEN NORMAL mg/dL (0.2-1.0)
[2018-02-07 00:06] LABS: BASO % 0.4 % (0.0-2.0); EOS % 0.2 % (0.0-4.0); HEMOGLOBIN 13.3 g/dL (12.0-18.0); LYMPH # 1.5 K/uL (1.0-4.3); LYMPH % 17.3 % (20.0-40.0); MEAN CELL VOLUME 82.3 fL (80.0-94.0); MEAN CORPUSCULAR HEMOGLOBIN 26.2 pg (27.0-31.0); MEAN CORPUSCULAR HGB CONC 31.9 g/dL (33.0-37.0); MEAN PLATELET VOLUME 7.1 fL (7.2-11.7); MONO # 0.5 K/uL (0.0-0.8); MONO % 5.6 % (0.0-10.0); NEUT # 6.7 K/uL (1.8-7.0); NEUT % 76.5 % (50.0-75.0); NRBC % 0.1 % (0.0-2.0); RBC 5.05 Mil/uL (4.40-5.90); RED CELL DISTRIBUTION WIDTH 18.6 % (11.5-14.5); WHITE BLOOD COUNT 8.7 K/uL (4.8-10.8)
[2018-02-07 00:50] LABS: ALB/GLOB RATIO 0.8 (1.0-2.1); ALBUMIN 3.4 g/dL (3.5-5.0); ALT/SGPT 17 U/L (21-72); AST/SGOT 31 U/L (17-59); BLOOD UREA NITROGEN 13 mg/dL (9-20); CALCIUM 8.8 mg/dl (8.6-10.4); GFR NON-AFRICAN AMERICAN > 60; LIPASE 24 U/L (23-300)
--- NOTE | 2018-02-07 01:10 | C.PDOC ---
History Of Present Illness 77 year old male presents to the emergency department from pen[facility]entiary status- post vomiting a dark substance which he thinks may have been his antibiotics. Patient was recently admitted for a rapid A-fib, sepsis, urinary retention. <Naeem Marsh - Last Filed: 02/07/18 03:43> <Sarita Paredes - Last Filed: 02/07/18 02:09> History Per: Patient History/Exam Limitations: no limitations Onset/Duration Of Symptoms: Hrs Current Symptoms Are (Timing): Still Present Associated Symptoms: Vomiting <Naeem Marsh - Last Filed: 02/07/18 03:43> Time Seen by Provider: 02/06/18 23:14 Chief Complaint (Nursing): GI Problem Past Medical History Vital Signs: Last Vital Signs Temp 98.7 F 02/06/18 23:13 Pulse 80 02/07/18 00:49 Resp 18 02/07/18 00:49 BP 91/52 L 02/07/18 00:49 Pulse Ox 97 02/07/18 01:11 - [facility] Procedures EXCISION OF BLADDER, ENDO, DIAGN (12/11/17) INSERTION OF ENDOTRACHEAL AIRWAY INTO TRACHEA, VIA OPENING (01/12/18) INSERTION OF INFUSION DEV INTO SUP VENA CAVA, PERC APPROACH (01/12/18) INSERTION OF INFUSION DEVICE INTO LOWER VEIN, PERC APPROACH (01/12/18) RESPIRATORY VENTILATION, GREATER THAN 96 CONSECUTIVE HOURS (01/12/18) <Sarita Paredes - Last Filed: 02/07/18 02:09> Reviewed: Historical Data, Nursing Documentation, Vital Signs Vital Signs: Last Vital Signs Temp 98.7 F 02/06/18 23:13 Pulse 80 02/07/18 00:49 Resp 18 02/07/18 00:49 BP 91/52 L 02/07/18 00:49 Pulse Ox 97 02/07/18 00:49 - Medical History PMH: CHF, COPD, Diverticulitis, HTN, Peripheral Edema, Pneumonia (BRONCHOPNEUMONIA UNSPECIFIED ORGANISM(11/04/15)) Denies: Chronic Kidney Disease Surgical History: No Surg Hx - [facility] Procedures EXCISION OF BLADDER, ENDO, DIAGN (12/11/17) INSERTION OF ENDOTRACHEAL AIRWAY INTO TRACHEA, VIA OPENING (01/12/18) INSERTION OF INFUSION DEV INTO SUP VENA CAVA, PERC APPROACH (01/12/18) INSERTION OF INFUSION DEVICE INTO LOWER VEIN, PERC APPROACH (01/12/18) RESPIRATORY VENTILATION, GREATER THAN 96 CONSECUTIVE HOURS (01/12/18) Family History: States: No Known Family Hx - Social History Hx Tobacco Use: Yes (stopped 7 months ago ) Hx Alcohol Use: No Hx Substance Use: No <Naeem Marsh - Last Filed: 02/07/18 03:43> Review Of Systems Except As Marked, All Systems Reviewed And Found Negative. Constitutional: Negative for: Fever Gastrointestinal: Positive for: Vomiting. Negative for: Abdominal Pain <Naeem Marsh - Last Filed: 02/07/18 03:43> Physical Exam - Physical Exam Appears: Non-toxic, No Acute Distress Skin: Warm, Dry Head: Atraumatic, Normacephalic Eye(s): bilateral: Normal Inspection Nose: Normal Oral Mucosa: Moist Neck: Normal, Supple Chest: Symmetrical, No Tenderness Cardiovascular: Rhythm Regular, No Murmur Respiratory: Normal Breath Sounds, No Rales, No Rhonchi, No Wheezing Gastrointestinal/Abdominal: Bowel Sounds (tympanic to percussion), Soft, No Tenderness, Distention, Other (angeles catheter in place, clear urine drainage) Extremity: Normal ROM (all extremities) Neurological/Psych: Oriented x3, Normal Speech, Normal Cognition <Naeem Marsh Last Filed: 02/07/18 03:43> ED Course And Treatment - Laboratory Results Result Diagrams: 02/06/18 23:48 02/07/18 00:31 <RuthrooseveltSarita - Last Filed: 02/07/18 02:09> - Laboratory Results Result Diagrams: 02/06/18 23:48 02/07/18 00:31 O2 Sat by Pulse Oximetry: 97 (RA) Pulse Ox Interpretation: Normal - Radiology CXR: Interpreted by Me CXR Interpretation: Yes: No Acute Disease - Other Rad abd x 2 X-Ray: Interpreted by Ga (+ distended bowel, c/w bowel obstruction) - CT Scan/US CT Abdomen and Pelvis Other Rad Studies (CT/US): Read By Radiologist, Radiology Report Reviewed CT/US Interpretation: EXAM: CT Abdomen and Pelvis with IV contrast. CLINICAL HISTORY: Bowel obstruction. TECHNIQUE: Axial computed tomography images of the abdomen and pelvis with intravenous contrast. CONTRAST: With intravenous contrast. With; VISI 100 MLS. COMPARISON: CT\SD\SR - ABD PELVIS PO CONTRAST ONLY - 01/23/2018 01:11 PM EDT. FINDINGS: LUNG BASES: Chronic lung changes. LIVER: Unremarkable. GALLBLADDER AND BILE DUCTS: S/p cholecystectomy. Surgical clips are noted in the gallbladder fossa. PANCREAS: Unremarkable. SPLEEN: Unremarkable. ADRENAL GLANDS: Unremarkable. KIDNEYS, URETERS, AND BLADDER: 4.5 cm exophytic left renal cyst with peripheral calcifications. Kidneys are otherwise WNL. Folley catheter is in place. STOMACH AND BOWEL: Retained contrast in the colon. Markedly dilates small bowel loops up to 4 cm with air fluid levels and transition in the RLQ, compatible with high grade small bowel obstruction. There is diffuse diverticulosis noted involving descending and sigmoid colon. No evidence of acute diverticulitis. APPENDIX: No evidence of acute appendicitis on CT examination. PERITONEUM: Presacral edema is noted. No free air. LYMPH NODES: No lymphadenopathy is evident. REPRODUCTIVE: Unremarkable as visualized. VASCULATURE: No evidence of abdominal aortic aneurysm. BONES: No aggressive appearing osseous lesion. No acute osseous pathology evident. MISCELLANEOUS: NG tube is in place. IMPRESSION: 1. Chronic lung changes. 2. 4.5 cm exophytic left renal cyst with peripheral calcifications. 3. High grade small bowel obstruction. Reevaluation Time: 01:09 Reassessment Condition: Improved - Physician Consult Information Outcome Of Conversation: 0100: d/w PMD Dr Vaughn Holt, ok to adm and consult Surgery. 0100: d/w Surg Rodolfo, covering w Dr. Smitha Holt, will place NGT and f/u CT Abd/Pelvis <Naeem Marsh - Last Filed: 02/07/18 03:43> Medical Decision Making Medical Decision Making: vomited @ NH, prob bowel obst pending NGT and CT No abx for now Urine minor/chronic infected, defer ABX for now. Plan: VBG CT Abdomen and Pelvis EKG CMP Lipase Troponin I CBC CXR One View XR Obstructive Series Blood Culture Urinalysis DNR during last admission, full code per penitentiary staff. <Naeem Marsh - Last Filed: 02/07/18 03:43> Disposition <Sarita Paredes - Last Filed: 02/07/18 02:09> Doctor Will See Patient In The: Hospital Counseled Patient/Family Regarding: Studies Performed, Diagnosis - Disposition Disposition Time: 01:10 <Naeem Marsh - Last Filed: 02/07/18 03:43> - Disposition Disposition: HOSPITALIZED Condition: GOOD - Clinical Impression Clinical Impression: Vomiting, Bowel obstruction - Scribe Statement The provider has reviewed the documentation as recorded by the Scribe (Luis Enrique Steiner) Provider Attestation: All medical record entries made by the Scribe were at my direction and personally dictated by me. I have reviewed the chart and agree that the record accurately reflects my personal performance of the history, physical exam, medical decision making, and the department course for this patient. I have also personally directed, reviewed, and agree with the discharge instructions and disposition. <Naeem Marsh - Last Filed: 02/07/18 03:43>
[2018-02-07] MEDS ORDERED: Iodixanol 320 MG/ML 100 ML BOTTLE IV ONE (01:58)
--- NOTE | 2018-02-07 02:06 | CP.PCM.CON ---
History of Present Illness - History of Present Illness History of Present Illness: General surgery consult note for Dr. Holt covering for Dr. Magnus Castillo, PGY-2 Pt S & E at bedside 0130. History as per EMR and halfway documentation due to dementia. 77M w/multiple co-morbidities including dementia consulted for emesis, bowel obstruction. Per halfway documentation - pt had emesis. Sent in for evaluation. Ab x-ray done with findings of distended bowel. Labs WNL, U/A positive for leukocyte esterase, negative for nitrates. ROS unobtainable - pt demented, currently denying any problems. PMH: Bladder CA, hx UTI, dementia, GERD, BPH, afib, diverticulitis, cervical cord compression/stenosis, HTN, peripheral edema, umbilcal & B/L inguinal hernias, CHF, COPD PSH: Denies All: NKDA SH: halfway resident, hx of tobacco use Review of Systems - Review of Systems Systems not reviewed;Unavailable: Dementia All systems: reviewed and no additional remarkable complaints except Past Patient History - Infectious Disease Hx of Infectious Diseases: None - Past Medical History & Family History Past Medical History?: Yes - Past Social History Smoking Status: Former Smoker - CARDIAC Hx Congestive Heart Failure: Yes Hx Hypertension: Yes Hx Peripheral Edema: Yes - PULMONARY Hx Chronic Obstructive Pulmonary Disease (COPD): Yes Hx Pneumonia: Yes (BRONCHOPNEUMONIA UNSPECIFIED ORGANISM(11/04/15)) - NEUROLOGICAL Hx Neurological Disorder: Yes Other/Comment: CERVICAL CORD COMPRESSION. CERVICAL STENOSIS. NEUROPATHY - HEENT Hx HEENT Problems: No - RENAL Hx Chronic Kidney Disease: No - ENDOCRINE/METABOLIC Hx Endocrine Disorders: No - HEMATOLOGICAL/ONCOLOGICAL Hx Blood Disorders: No - INTEGUMENTARY Hx Dermatological Problems: Yes Other/Comment: LEFT LOWER EXTREMITY CELLULITIS - MUSCULOSKELETAL/RHEUMATOLOGICAL Hx Musculoskeletal Disorders: Yes Hx Back Pain: Yes Hx Osteoarthritis: Yes Other/Comment: HX: CERVICAL CORD COMPRESSION. HX: CERVICAL STENOSIS. 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, THORACIC REGION - GASTROINTESTINAL Hx Diverticulitis: Yes - GENITOURINARY/GYNECOLOGICAL Hx Genitourinary Disorders: Yes Hx Bladder Stone: Yes Hx Hematuria: Yes Hx Urinary Tract Infection: Yes - PSYCHIATRIC Hx Substance Use: No - SURGICAL HISTORY Hx Surgeries: Yes Other/Comment: HX: FLEXIBLE CYSTOSCOPY(08/28/15) - ANESTHESIA Hx Anesthesia: Yes Hx Anesthesia Reactions: No Meds Allergies/Adverse Reactions: Allergies Allergy/AdvReac Type Severity Reaction Status Date / Time No Known Allergies Allergy Verified 01/13/18 01:29 Physical Exam - Constitutional Appears: Non-toxic, No Acute Distress - Head Exam Head Exam: ATRAUMATIC, NORMAL INSPECTION, NORMOCEPHALIC - Eye Exam Eye Exam: EOMI, Normal appearance - ENT Exam ENT Exam: Mucous Membranes Moist, Normal Exam - Neck Exam Neck exam: Positive for: Full Rom, Normal Inspection - Respiratory Exam Respiratory Exam: Clear to Auscultation Bilateral, NORMAL BREATHING PATTERN. absent: Rales, Rhonchi, Wheezes, Respiratory Distress - Cardiovascular Exam Cardiovascular Exam: REGULAR RHYTHM, +S1, +S2 - GI/Abdominal Exam GI & Abdominal Exam: Distended (grossly), Firm. absent: Guarding, Hernia, Normal Bowel Sounds, Soft, Tenderness - Extremities Exam Extremities exam: Negative for: normal inspection (bilateral feet with dressings in place- unable to evaluate), tenderness - Neurological Exam Additional comments: demented, Aox1- self - Skin Skin Exam: Dry, Intact, Normal Color, Warm Results - Vital Signs Recent Vital Signs: Last Vital Signs Temp 98.7 F 02/06/18 23:13 Pulse 80 02/07/18 00:49 Resp 18 02/07/18 00:49 BP 91/52 L 02/07/18 00:49 Pulse Ox 97 02/07/18 01:11 - Labs Result Diagrams: 02/06/18 23:48 02/07/18 00:31 Labs: Laboratory Results - last 24 hr 02/06/18 02/06/18 02/06/18 23:31 23:48 23:48 WBC 8.7 RBC 5.05 Hgb 13.3 D Hct 41.6 MCV 82.3 MCH 26.2 L MCHC 31.9 L RDW 18.6 H Plt Count 297 MPV 7.1 L Neut % (Auto) 76.5 H Lymph % (Auto) 17.3 L [place] % (Auto) 5.6 Eos % (Auto) 0.2 Baso % (Auto) 0.4 Neut # (Auto) 6.7 Lymph # (Auto) 1.5 [place] # (Auto) 0.5 Eos # (Auto) 0.0 Baso # (Auto) 0.0 pO2 36 VBG pH 7.28 L VBG pCO2 74 H* VBG HCO3 28.2 VBG Total CO2 37.1 H VBG O2 Sat (Calc) 71.1 H VBG Base Excess 5.5 H VBG Potassium 9.6 H* Sodium 131.0 L Chloride 99.0 Glucose 144 H Lactate 1.0 Crit Value Called To Dr cheema Crit Value Called By Tamra mcgraw rt Crit Value Read Back Y Blood Gas Notified Time 2340 Potassium Carbon Dioxide Anion Gap BUN Creatinine Est GFR ( Amer) Est GFR (Non-Af Amer) Random Glucose Calcium Total Bilirubin AST ALT Alkaline Phosphatase Troponin I Total Protein Albumin Globulin Albumin/Globulin Ratio Lipase Venous Blood Potassium 9.6 H* Urine Color Radha Urine Clarity Hazy Urine pH 5.0 Ur Specific [place] 1.032 H Urine Protein 1+ H Urine Glucose (UA) Normal Urine Ketones Negative Urine Blood 1+ H Urine Nitrate Negative Urine Bilirubin Negative Urine Urobilinogen Normal Ur Leukocyte Esterase 3+ H Urine WBC (Auto) 55 H Urine RBC (Auto) 11 H Ur Squamous Epith Cells 11 H Urine Bacteria Rare Hyaline Casts 3-5 H 02/07/ 00:31 WBC RBC Hgb Hct MCV MCH MCHC RDW Plt Count MPV Neut % (Auto) Lymph % (Auto) [place] % (Auto) Eos % (Auto) Baso % (Auto) Neut # (Auto) Lymph # (Auto) [place] # (Auto) Eos # (Auto) Baso # (Auto) pO2 VBG pH VBG pCO2 VBG HCO3 VBG Total CO2 VBG O2 Sat (Calc) VBG Base Excess VBG Potassium Sodium 134 Chloride 95 L Glucose Lactate Crit Value Called To Crit Value Called By Crit Value Read Back Blood Gas Notified Time Potassium 5.1 Carbon Dioxide 29 Anion Gap 14 BUN 13 Creatinine 1.1 Est GFR ( Amer) > 60 Est GFR (Non-Af Amer) > 60 Random Glucose 151 H Calcium 8.8 Total Bilirubin 0.8 AST 31 ALT 17 L D Alkaline Phosphatase 73 Troponin I 0.0160 Total Protein 7.7 Albumin 3.4 L D Globulin 4.3 H Albumin/Globulin Ratio 0.8 L Lipase 24 Venous Blood Potassium Urine Color Urine Clarity Urine pH Ur Specific [place] Urine Protein Urine Glucose (UA) Urine Ketones Urine Blood Urine Nitrate Urine Bilirubin Urine Urobilinogen Ur Leukocyte Esterase Urine WBC (Auto) Urine RBC (Auto) Ur Squamous Epith Cells Urine Bacteria Hyaline Casts Assessment & Plan - Assessment and Plan (Free Text) Assessment: 77M w/multiple co-morbidities including dementia consulted for emesis, bowel obstruction on ab x-ray in ED Plan: NGT place- 700cc dark brown output immediately; abdominal distention decreased CXR with NGT in stomach- reviewed NGT to low intermittent wall suction Monitor NGT output NPO IVF Monitor abdomen Will DW Dr. Jonathon Castillo, PGY-2 - Date & Time Date: 02/07/18 Time: 02:08
[2018-02-07] MEDS: Potassium Ch 20mEq in D5-1/2NS 1,000 ML IV SCH ×4 (02:15→21:34)
[2018-02-07 09:16] LABS: BASO % 0.4 % (0.0-2.0); EOS % 0.4 % (0.0-4.0); HEMOGLOBIN 12.4 g/dL (12.0-18.0); LYMPH # 2.1 K/uL (1.0-4.3); LYMPH % 23.9 % (20.0-40.0); MEAN CELL VOLUME 81.1 fL (80.0-94.0); MEAN CORPUSCULAR HEMOGLOBIN 26.4 pg (27.0-31.0); MEAN CORPUSCULAR HGB CONC 32.6 g/dL (33.0-37.0); MEAN PLATELET VOLUME 7.3 fL (7.2-11.7); MONO # 0.7 K/uL (0.0-0.8); MONO % 7.3 % (0.0-10.0); NEUT # 6.1 K/uL (1.8-7.0); NRBC % 0.1 % (0.0-2.0); RBC 4.7 Mil/uL (4.40-5.90); RED CELL DISTRIBUTION WIDTH 18.5 % (11.5-14.5); WHITE BLOOD COUNT 8.9 K/uL (4.8-10.8)
--- NOTE | 2018-02-07 09:49 | CP.PCM.HP ---
Past Patient History - Infectious Disease Hx of Infectious Diseases: None - Past Medical History & Family History Past Medical History?: Yes - Past Social History Smoking Status: Former Smoker - CARDIAC Hx Congestive Heart Failure: Yes Hx Hypertension: Yes Hx Peripheral Edema: Yes - PULMONARY Hx Chronic Obstructive Pulmonary Disease (COPD): Yes Hx Pneumonia: Yes (BRONCHOPNEUMONIA UNSPECIFIED ORGANISM(11/04/15)) - NEUROLOGICAL Hx Neurological Disorder: Yes Other/Comment: CERVICAL CORD COMPRESSION. CERVICAL STENOSIS. NEUROPATHY - HEENT Hx HEENT Problems: No - RENAL Hx Chronic Kidney Disease: No - ENDOCRINE/METABOLIC Hx Endocrine Disorders: No - HEMATOLOGICAL/ONCOLOGICAL Hx Blood Disorders: No - INTEGUMENTARY Hx Dermatological Problems: Yes Other/Comment: LEFT LOWER EXTREMITY CELLULITIS - MUSCULOSKELETAL/RHEUMATOLOGICAL Hx Musculoskeletal Disorders: Yes Hx Back Pain: Yes Hx Osteoarthritis: Yes Other/Comment: HX: CERVICAL CORD COMPRESSION. HX: CERVICAL STENOSIS. 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, THORACIC REGION - GASTROINTESTINAL Hx Diverticulitis: Yes - GENITOURINARY/GYNECOLOGICAL Hx Genitourinary Disorders: Yes Hx Bladder Stone: Yes Hx Hematuria: Yes Hx Urinary Tract Infection: Yes - PSYCHIATRIC Hx Substance Use: No - SURGICAL HISTORY Hx Surgeries: Yes Other/Comment: HX: FLEXIBLE CYSTOSCOPY(08/28/15) - ANESTHESIA Hx Anesthesia: Yes Hx Anesthesia Reactions: No Meds Allergies/Adverse Reactions: Allergies Allergy/AdvReac Type Severity Reaction Status Date / Time No Known Allergies Allergy Verified 01/13/18 01:29 Results - Vital Signs Recent Vital Signs: Last Vital Signs Temp 98.4 F 02/07/18 07:46 Pulse 71 02/07/18 07:46 Resp 20 02/07/18 07:46 BP 106/64 02/07/18 07:46 Pulse Ox 96 02/07/18 07:46 - Labs Result Diagrams: 02/07/18 09:13 02/07/18 00:31 Labs: Laboratory Results - last 24 hr 02/06/18 02/06/18 02/06/18 23:31 23:48 23:48 WBC 8.7 RBC 5.05 Hgb 13.3 D Hct 41.6 MCV 82.3 MCH 26.2 L MCHC 31.9 L RDW 18.6 H Plt Count 297 MPV 7.1 L Neut % (Auto) 76.5 H Lymph % (Auto) 17.3 L [place] % (Auto) 5.6 Eos % (Auto) 0.2 Baso % (Auto) 0.4 Neut # (Auto) 6.7 Lymph # (Auto) 1.5 [place] # (Auto) 0.5 Eos # (Auto) 0.0 Baso # (Auto) 0.0 pO2 36 VBG pH 7.28 L VBG pCO2 74 H* VBG HCO3 28.2 VBG Total CO2 37.1 H VBG O2 Sat (Calc) 71.1 H VBG Base Excess 5.5 H VBG Potassium 9.6 H* Sodium 131.0 L Chloride 99.0 Glucose 144 H Lactate 1.0 Crit Value Called To Dr cheema Crit Value Called By Tamra mcgraw rt Crit Value Read Back Y Blood Gas Notified Time 2340 Potassium Carbon Dioxide Anion Gap BUN Creatinine Est GFR ( Amer) Est GFR (Non-Af Amer) POC Glucose (mg/dL) Random Glucose Calcium Total Bilirubin AST ALT Alkaline Phosphatase Troponin I Total Protein Albumin Globulin Albumin/Globulin Ratio Lipase Venous Blood Potassium 9.6 H* Urine Color Radha Urine Clarity Hazy Urine pH 5.0 Ur Specific [place] 1.032 H Urine Protein 1+ H Urine Glucose (UA) Normal Urine Ketones Negative Urine Blood 1+ H Urine Nitrate Negative Urine Bilirubin Negative Urine Urobilinogen Normal Ur Leukocyte Esterase 3+ H Urine WBC (Auto) 55 H Urine RBC (Auto) 11 H Ur Squamous Epith Cells 11 H Urine Bacteria Rare Hyaline Casts 3-5 H 02/07/18 02/07/18 02/07/18 00:31 06:23 09:13 WBC 8.9 RBC 4.70 Hgb 12.4 Hct 38.1 MCV 81.1 MCH 26.4 L MCHC 32.6 L RDW 18.5 H Plt Count 306 MPV 7.3 Neut % (Auto) 68.0 Lymph % (Auto) 23.9 [place] % (Auto) 7.3 Eos % (Auto) 0.4 Baso % (Auto) 0.4 Neut # (Auto) 6.1 Lymph # (Auto) 2.1 [place] # (Auto) 0.7 Eos # (Auto) 0.0 Baso # (Auto) 0.0 pO2 VBG pH VBG pCO2 VBG HCO3 VBG Total CO2 VBG O2 Sat (Calc) VBG Base Excess VBG Potassium Sodium 134 Chloride 95 L Glucose Lactate Crit Value Called To Crit Value Called By Crit Value Read Back Blood Gas Notified Time Potassium 5.1 Carbon Dioxide 29 Anion Gap 14 BUN 13 Creatinine 1.1 Est GFR ( Amer) > 60 Est GFR (Non-Af Amer) > 60 POC Glucose (mg/dL) 149 H Random Glucose 151 H Calcium 8.8 Total Bilirubin 0.8 AST 31 ALT 17 L D Alkaline Phosphatase 73 Troponin I 0.0160 Total Protein 7.7 Albumin 3.4 L D Globulin 4.3 H Albumin/Globulin Ratio 0.8 L Lipase 24 Venous Blood Potassium Urine Color Urine Clarity Urine pH Ur Specific [place] Urine Protein Urine Glucose (UA) Urine Ketones Urine Blood Urine Nitrate Urine Bilirubin Urine Urobilinogen Ur Leukocyte Esterase Urine WBC (Auto) Urine RBC (Auto) Ur Squamous Epith Cells Urine Bacteria Hyaline Casts
[2018-02-07 10:07] LABS: BLOOD UREA NITROGEN 14 mg/dL (9-20); CALCIUM 9.1 mg/dl (8.6-10.4); GFR NON-AFRICAN AMERICAN 53
[2018-02-07] MEDS ORDERED: Dextrose 50% SYRINGE Inj (50 ml) IV PRN (11:22)
[2018-02-07] MEDS ORDERED: Glucagon Recombinant 1 mg Inj IM PRN (11:22)
--- NOTE | 2018-02-07 12:37 | RAD ---
Date of service: 02/07/2018 HISTORY: NGT placement COMPARISON: 02/07/2018 at 00:50. FINDINGS: LUNGS: No active pulmonary disease. PLEURA: No significant pleural effusion identified, no pneumothorax apparent. CARDIOVASCULAR: No radiographic findings to suggest acute or significant cardiovascular disease. OSSEOUS STRUCTURES: No significant abnormalities. VISUALIZED UPPER ABDOMEN: Normal. OTHER FINDINGS: Recently placed nasogastric tube courses through the esophagus and appears coiled in the stomach which appears to be less distended compared to the prior study. IMPRESSION: Satisfactory position recently placed nasogastric tube with decompression of the stomach which is incompletely visible.
--- NOTE | 2018-02-07 13:24 | RAD ---
Date of service: 02/07/2018 PROCEDURE: Radiographs of the chest and abdomen (obstructive series) HISTORY: Dominant pain COMPARISON: Correlation made with chest radiograph and CT scan abdomen pelvis 01/26/2018 and 01/23/2018 respectively. TECHNIQUE: AP radiograph of the chest, with upright and supine radiographs of the abdomen. FINDINGS: CHEST: Lungs: Patchy bibasilar atelectasis/infiltrate changes. Cardiovascular: Normal size heart. No pulmonary vascular congestion. Pleura: No pleural fluid. No pneumothorax. Other findings: Note is made of bilateral Oates rods which overlie the lower cervical spine. ABDOMEN AND PELVIS: Multiple distended air-filled loops of small bowel with large amount of air in the stomach consistent with small-bowel obstruction... Free air: None. Bones: Unremarkable. Other findings: None. Note IMPRESSION: Findings consistent with small-bowel obstruction. Patchy bibasilar atelectasis and or infiltrate changes.
[2018-02-07] MEDS: (Novolog) Insulin Aspart, Recombinant 100 u/ml 10 ml vial SC SCH ×3 (13:25→21:32)
[2018-02-07] MEDS: Enoxaparin 40 mg Syringe SC SCH (14:09)
[2018-02-07] MEDS: Albuterol-Ipratrop 3 mg / 0.5 (3 ml) UD INH SCH ×3 (14:25→20:18)
--- NOTE | 2018-02-07 16:45 | CT ---
Date of service: 02/07/2018 PROCEDURE: CT abdomen pelvis HISTORY: ? bowel obstruction/vomiting COMPARISON: Comparison made with prior CT scan abdomen pelvis dated 01/23/2018. TECHNIQUE: Contiguous axial images of the abdomen and pelvis of performed following intravenous injection of approximately 100 cc Visipaque 320 contrast material. Coronal and Sagittal reformats generated. Note the examination is limited due to motion and streak/beam hardening artifact arising from the upper extremities which have not been moved from the field of view. Radiation dose: Total exam DLP = 966.42 mGy-cm. This CT exam was performed using one or more of the following dose reduction techniques: Automated exposure control, adjustment of the mA and/or kV according to patient size, and/or use of iterative reconstruction technique. FINDINGS: LOWER THORAX: Unremarkable. LIVER: Unremarkable. No gross lesion or ductal dilatation. GALLBLADDER AND BILE DUCTS: Unremarkable. PANCREAS: Unremarkable. No mass. No ductal dilatation. The pancreas is poorly delineated due to motion and streak artifact. Pancreas appears slightly atrophic. No obvious pancreatic masses or collections. SPLEEN: Spleen exhibits normal size and attenuation pattern without masses collections or calcifications. ADRENALS: There are no adrenal lesions. KIDNEYS AND URETERS: Kidneys demonstrate relatively symmetric nephrograms. No evidence of nephrolithiasis or hydronephrosis. Redemonstrated is a large exophytic cyst upper pole left kidney with some peripheral calcification along its superolateral border BLADDER: In situ unclamped Olivares catheter.. The urinary bladder is collapsed about the Olivares catheter. Wall thickening of the urinary bladder likely in part due to collapse however the possibility of other intrinsic/invasive wall lesion cannot be excluded. Clinical correlation recommended. REPRODUCTIVE: Unremarkable. APPENDIX: There is hyperdense material within a normal caliber appendix. No evidence to suggest acute appendicitis. BOWEL: In situ NGT, the tip of which is located in the stomach along greater curvature. Stomach is partially distended with fluid and air. There are multiple distended fluid-filled loops of small bowel which may represent small-bowel obstruction or generalized ileus. Continued follow-up recommended. The colon is relatively collapsed however there are scattered colonic diverticula including diverticula that also arise from the right colon. PERITONEUM: Unremarkable. No fluid collection. No free air. LYMPH NODES: Unremarkable. No enlarged lymph nodes. VASCULATURE: Unremarkable. No aortic aneurysm. BONES: No fracture or destructive lesion. OTHER FINDINGS: None. IMPRESSION: Limited study as detailed above. Multiple distended loops of small bowel; findings could represent ileus versus small bowel obstruction. Colonic diverticulosis. Urinary bladder wall is thickened in part due to collapse about an in situ unclamped Olivares catheter however the possibility of wall thickening due to intrinsic/invasive wall lesion not excluded.
--- NOTE | 2018-02-08 00:49 | CP.PCM.PN ---
Subjective - Date & Time of Evaluation Date of Evaluation: 02/08/18 Time of Evaluation: 22:30 - Subjective Subjective: Pt removed NGT x2. Refusing re-insertion of NGT at this time. If abdominal distension worsens, abdominal pain increases, or pt has worsening nausea or bout of emesis will try and reinsert NGT again. Objective - Vital Signs/Intake and Output Vital Signs (last 24 hours): Temp Pulse Resp BP Pulse Ox 98.9 F 88 20 96/60 L 95 02/07/18 23:15 02/07/18 23:15 02/07/18 23:15 02/07/18 23:15 02/07/18 23:15 Intake and Output: 02/07/18 02/08/18 18:59 06:59 Intake Total 800 Output Total 800 350 Balance -800 450 - Medications Medications: Current Medications Albuterol/Ipratropium (Duoneb 3 Mg/0.5 Mg (3 Ml) Ud) 3 ml INH RQ4 [facility] Last Admin: 02/07/18 20:18 Dose: 3 ml Dextrose (Dextrose 50% Inj) 0 ml IV STAT PRN; Protocol PRN Reason: Hypoglycemia Protocol Dextrose (Glutose 15) 15 gm PO ONCE PRN; Protocol PRN Reason: Hypoglycemia Protocol Enoxaparin Sodium (Lovenox) 40 mg SC DAILY [facility] Last Admin: 02/07/18 14:09 Dose: 40 mg Glucagon (Glucagen Diagnostic Kit) 1 mg IM STAT PRN; Protocol PRN Reason: Hypoglycemia Protocol Potassium Chloride/Dextrose/Sod Cl (Potassium Chl 20 Meq In D5-1/2ns) 1,000 mls @ 100 mls/hr IV .Q10H [facility] Last Admin: 02/07/18 21:34 Dose: 100 mls/hr Dextrose (Dextrose 5% In Water 1000 Ml) 1,000 mls @ 0 mls/hr IV .Q0M PRN; Protocol PRN Reason: Hypoglycemia Protocol Influenza Virus Vaccine (Fluzone Quad [id number]) 60 mcg IM .ONCE ONE Stop: 02/09/18 10:01 Insulin Aspart (Novolog) 0 unit SC [facility]; Protocol Last Admin: 02/07/18 21:32 Dose: Not Given - Labs Labs: 02/07/18 09:13 02/07/18 09:13
[2018-02-08] MEDS: Albuterol-Ipratrop 3 mg / 0.5 (3 ml) UD INH SCH ×6 (01:31→20:21)
[2018-02-08 08:00] LABS: BASO # 0.1 K/uL (0.0-0.2); BASO % 0.8 % (0.0-2.0); EOS # 0.3 K/uL (0.0-0.7); EOS % 3.7 % (0.0-4.0); LYMPH # 2.1 K/uL (1.0-4.3); LYMPH % 26.8 % (20.0-40.0); MEAN CELL VOLUME 80.5 fL (80.0-94.0); MEAN CORPUSCULAR HEMOGLOBIN 25.1 pg (27.0-31.0); MEAN CORPUSCULAR HGB CONC 31.2 g/dL (33.0-37.0); MEAN PLATELET VOLUME 6.8 fL (7.2-11.7); MONO # 0.9 K/uL (0.0-0.8); MONO % 11.1 % (0.0-10.0); NEUT # 4.5 K/uL (1.8-7.0); NEUT % 57.6 % (50.0-75.0); NRBC % 0.1 % (0.0-2.0); RBC 4.14 Mil/uL (4.40-5.90); WHITE BLOOD COUNT 7.8 K/uL (4.8-10.8)
[2018-02-08] MEDS: (Novolog) Insulin Aspart, Recombinant 100 u/ml 10 ml vial SC SCH ×4 (08:05→21:34)
[2018-02-08 08:06] LABS: HEMOGLOBIN 10.4 g/dL (12.0-18.0)
[2018-02-08 08:13] LABS: BLOOD UREA NITROGEN 13 mg/dL (9-20); CALCIUM 8.4 mg/dl (8.6-10.4); GFR NON-AFRICAN AMERICAN > 60
[2018-02-08] MEDS: Potassium Ch 20mEq in D5-1/2NS 1,000 ML IV SCH ×2 (08:13→18:37)
[2018-02-08] MEDS: Enoxaparin 40 mg Syringe SC SCH (10:06)
--- NOTE | 2018-02-08 19:39 | CP.PCM.PN ---
Subjective - Date & Time of Evaluation Date of Evaluation: 02/08/18 Time of Evaluation: 19:39 Objective - Vital Signs/Intake and Output Vital Signs (last 24 hours): Temp Pulse Resp BP Pulse Ox 98.7 F 75 20 102/70 98 02/08/18 15:59 02/08/18 15:59 02/08/18 15:59 02/08/18 15:59 02/08/18 15:59 Intake and Output: 02/08/18 02/09/18 18:59 06:59 Intake Total 900 Output Total 400 Balance 500 - Medications Medications: Current Medications Albuterol/Ipratropium (Duoneb 3 Mg/0.5 Mg (3 Ml) Ud) 3 ml INH RQ4 [facility] Last Admin: 02/08/18 15:50 Dose: 3 ml Dextrose (Dextrose 50% Inj) 0 ml IV STAT PRN; Protocol PRN Reason: Hypoglycemia Protocol Dextrose (Glutose 15) 15 gm PO ONCE PRN; Protocol PRN Reason: Hypoglycemia Protocol Enoxaparin Sodium (Lovenox) 40 mg SC DAILY [facility] Last Admin: 02/08/18 10:06 Dose: Not Given Glucagon (Glucagen Diagnostic Kit) 1 mg IM STAT PRN; Protocol PRN Reason: Hypoglycemia Protocol Potassium Chloride/Dextrose/Sod Cl (Potassium Chl 20 Meq In D5-1/2ns) 1,000 mls @ 100 mls/hr IV .Q10H [facility] Last Admin: 02/08/18 18:37 Dose: 100 mls/hr Dextrose (Dextrose 5% In Water 1000 Ml) 1,000 mls @ 0 mls/hr IV .Q0M PRN; Protocol PRN Reason: Hypoglycemia Protocol Influenza Virus Vaccine (Fluzone Quad [id number]) 60 mcg IM .ONCE ONE Stop: 02/09/18 10:01 Insulin Aspart (Novolog) 0 unit SC [facility]; Protocol Last Admin: 02/08/18 17:10 Dose: Not Given Lactulose (Enulose) 20 gm PO ONCE ONE Stop: 02/08/18 22:01 - Labs Labs: 02/08/18 07:43 02/08/18 07:43
--- NOTE | 2018-02-08 21:58 | CARD ---
APPROVED REPORT Date of service: 02/06/2018 EKG Measurement Heart [id number] <Conclusion> Normal sinus rhythm Normal ECG
[2018-02-09] MEDS: Albuterol-Ipratrop 3 mg / 0.5 (3 ml) UD INH SCH ×7 (00:01→23:59)
[2018-02-09] MEDS: Potassium Ch 20mEq in D5-1/2NS 1,000 ML IV SCH ×2 (04:15→06:59)
[2018-02-09 07:23] LABS: BASO % 0.5 % (0.0-2.0); EOS # 0.2 K/uL (0.0-0.7); EOS % 2.8 % (0.0-4.0); HEMOGLOBIN 11.1 g/dL (12.0-18.0); LYMPH # 2.1 K/uL (1.0-4.3); LYMPH % 25.8 % (20.0-40.0); MEAN CELL VOLUME 79.7 fL (80.0-94.0); MEAN CORPUSCULAR HGB CONC 32.6 g/dL (33.0-37.0); MEAN PLATELET VOLUME 6.7 fL (7.2-11.7); MONO # 0.9 K/uL (0.0-0.8); MONO % 10.9 % (0.0-10.0); NRBC % 0.1 % (0.0-2.0); RBC 4.28 Mil/uL (4.40-5.90); RED CELL DISTRIBUTION WIDTH 18.1 % (11.5-14.5); WHITE BLOOD COUNT 8.3 K/uL (4.8-10.8)
[2018-02-09 07:26] LABS: BLOOD UREA NITROGEN 11 mg/dL (9-20); CALCIUM 8.4 mg/dl (8.6-10.4); GFR NON-AFRICAN AMERICAN > 60
[2018-02-09] MEDS: (Novolog) Insulin Aspart, Recombinant 100 u/ml 10 ml vial SC SCH ×4 (08:14→21:18)
--- NOTE | 2018-02-09 08:47 | CP.PCM.PN ---
Subjective - Date & Time of Evaluation Date of Evaluation: 02/09/18 Time of Evaluation: 07:00 - Subjective Subjective: General surgery progress note for Dr. Lopez Pt seen and examined at bedside. Patient had CLD yesterday but had an episode of bilious emesis today and is having increased respiratory effort. Inserted NGT at bedside with 1L dark green bilious output immediately. States he is hungry but is not passing gas or having bowel functions. Objective - Vital Signs/Intake and Output Vital Signs (last 24 hours): Temp Pulse Resp BP Pulse Ox 98.1 F 75 20 133/81 96 02/09/18 08:14 02/09/18 08:14 02/09/18 08:14 02/09/18 08:14 02/09/18 08:14 Intake and Output: 02/09/18 02/09/18 06:59 18:59 Intake Total 1000 980 Output Total 600 400 Balance 400 580 - Medications Medications: Current Medications Albuterol/Ipratropium (Duoneb 3 Mg/0.5 Mg (3 Ml) Ud) 3 ml INH RQ4 [facility] Last Admin: 02/09/18 03:13 Dose: Not Given Dextrose (Dextrose 50% Inj) 0 ml IV STAT PRN; Protocol PRN Reason: Hypoglycemia Protocol Dextrose (Glutose 15) 15 gm PO ONCE PRN; Protocol PRN Reason: Hypoglycemia Protocol Enoxaparin Sodium (Lovenox) 40 mg SC DAILY [facility] Last Admin: 02/08/18 10:06 Dose: Not Given Glucagon (Glucagen Diagnostic Kit) 1 mg IM STAT PRN; Protocol PRN Reason: Hypoglycemia Protocol Potassium Chloride/Dextrose/Sod Cl (Potassium Chl 20 Meq In D5-1/2ns) 1,000 mls @ 100 mls/hr IV .Q10H [facility] Last Admin: 02/09/18 06:59 Dose: 100 mls/hr Dextrose (Dextrose 5% In Water 1000 Ml) 1,000 mls @ 0 mls/hr IV .Q0M PRN; Protocol PRN Reason: Hypoglycemia Protocol Influenza Virus Vaccine (Fluzone Quad [id number]) 60 mcg IM .ONCE ONE Stop: 02/09/18 10:01 Insulin Aspart (Novolog) 0 unit SC ACHS [facility]; Protocol Last Admin: 02/09/18 08:14 Dose: Not Given - Labs Labs: 02/09/18 06:55 02/09/18 06:55 - Constitutional Appears: Well, Non-toxic, No Acute Distress - Head Exam Head Exam: ATRAUMATIC, NORMOCEPHALIC - Eye Exam Eye Exam: Normal appearance. absent: Conjunctival injection, Scleral icterus - ENT Exam ENT Exam: Mucous Membranes Moist, Normal Oropharynx - Respiratory Exam Additional comments: tachypnea with pursed-lipped expirations - Cardiovascular Exam Cardiovascular Exam: RRR - GI/Abdominal Exam GI & Abdominal Exam: Distended, Soft. absent: Tenderness, Rebound - Extremities Exam Extremities Exam: absent: Calf Tenderness, Pedal Edema, Tenderness - Neurological Exam Neurological Exam: Alert, Awake, Oriented x3 - Psychiatric Exam Psychiatric exam: Normal Affect, Normal Mood - Skin Skin Exam: Dry, Intact, Normal Color, Warm Assessment and Plan - Assessment and Plan (Free Text) Assessment: 77M with SBO, non-resolving Plan: re-inserted NGT at bedside with large amount of bilious fluid output--keep on intermediate continuous wall suction Strict urine and NGT output trend CBC and bmp and electrolytes UGIS today through the NGT to evaluate bowel further NPO Encourage ambulation--may clamp NGT to work with Pt Discussed and examined with Dr. Lopez, who agrees with above Cinthya Saucedo, PGY2
[2018-02-09] MEDS ORDERED: Influenza Vaccine 60 MCG/0.5 ML SYR (3 yr & up) IM ONE (10:00)
[2018-02-09] MEDS: Enoxaparin 40 mg Syringe SC SCH (10:13)
[2018-02-09] MEDS ORDERED: Magnesium Sulfate 1 gm in D5W 1 GM/100 ML BAG IVPB ONE ×2 (13:00→18:00)
--- NOTE | 2018-02-09 17:25 | CP.PCM.PN ---
Subjective - Date & Time of Evaluation Date of Evaluation: 02/09/18 Time of Evaluation: 17:25 Objective - Vital Signs/Intake and Output Vital Signs (last 24 hours): Temp Pulse Resp BP Pulse Ox 98.1 F 75 20 133/81 96 02/09/18 08:14 02/09/18 08:14 02/09/18 08:14 02/09/18 08:14 02/09/18 08:14 Intake and Output: 02/09/18 02/09/18 06:59 18:59 Intake Total 1000 1780 Output Total 600 1400 Balance 400 380 - Medications Medications: Current Medications Albuterol/Ipratropium (Duoneb 3 Mg/0.5 Mg (3 Ml) Ud) 3 ml INH RQ4 [facility] Last Admin: 02/09/18 13:08 Dose: 3 ml Dextrose (Dextrose 50% Inj) 0 ml IV STAT PRN; Protocol PRN Reason: Hypoglycemia Protocol Dextrose (Glutose 15) 15 gm PO ONCE PRN; Protocol PRN Reason: Hypoglycemia Protocol Enoxaparin Sodium (Lovenox) 40 mg SC DAILY [facility] Last Admin: 02/09/18 10:13 Dose: 40 mg Glucagon (Glucagen Diagnostic Kit) 1 mg IM STAT PRN; Protocol PRN Reason: Hypoglycemia Protocol Potassium Chloride/Dextrose/Sod Cl (Potassium Chl 20 Meq In D5-1/2ns) 1,000 mls @ 100 mls/hr IV .Q10H [facility] Last Admin: 02/09/18 06:59 Dose: 100 mls/hr Dextrose (Dextrose 5% In Water 1000 Ml) 1,000 mls @ 0 mls/hr IV .Q0M PRN; Protocol PRN Reason: Hypoglycemia Protocol Insulin Aspart (Novolog) 0 unit SC [facility]; Protocol Last Admin: 02/09/18 12:04 Dose: Not Given - Labs Labs: 02/09/18 06:55 02/09/18 06:55
[2018-02-10] MEDS: Potassium Ch 20mEq in D5-1/2NS 1,000 ML IV SCH ×2 (01:00→13:00)
[2018-02-10] MEDS: Albuterol-Ipratrop 3 mg / 0.5 (3 ml) UD INH SCH ×6 (03:22→23:46)
[2018-02-10 07:25] LABS: BASO # 0.1 K/uL (0.0-0.2); EOS # 0.5 K/uL (0.0-0.7); EOS % 6.2 % (0.0-4.0); HEMOGLOBIN 11.7 g/dL (12.0-18.0); LYMPH # 2.1 K/uL (1.0-4.3); LYMPH % 25.2 % (20.0-40.0); MEAN CELL VOLUME 79.9 fL (80.0-94.0); MEAN CORPUSCULAR HGB CONC 32.5 g/dL (33.0-37.0); MEAN PLATELET VOLUME 6.6 fL (7.2-11.7); NEUT # 4.7 K/uL (1.8-7.0); NEUT % 55.6 % (50.0-75.0); RBC 4.51 Mil/uL (4.40-5.90); RED CELL DISTRIBUTION WIDTH 18.4 % (11.5-14.5); WHITE BLOOD COUNT 8.5 K/uL (4.8-10.8)
[2018-02-10 08:21] LABS: BLOOD UREA NITROGEN 13 mg/dL (9-20); CALCIUM 8.7 mg/dl (8.6-10.4); GFR NON-AFRICAN AMERICAN > 60
[2018-02-10] MEDS: (Novolog) Insulin Aspart, Recombinant 100 u/ml 10 ml vial SC SCH ×4 (08:27→21:29)
[2018-02-10] MEDS: Enoxaparin 40 mg Syringe SC SCH (10:06)
[2018-02-10] MEDS: Sodium Chloride 0.9% 500 ML IV SCH ×2 (10:07→11:58)
--- NOTE | 2018-02-10 14:54 | CP.PCM.PN ---
Subjective - Date & Time of Evaluation Date of Evaluation: 02/10/18 Time of Evaluation: 14:54 - Subjective Subjective: Patient seen and examined No events overnight Objective - Vital Signs/Intake and Output Vital Signs (last 24 hours): Temp Pulse Resp BP Pulse Ox 98.1 F 77 22 115/80 100 02/10/18 10:07 02/10/18 10:07 02/10/18 10:07 02/10/18 10:07 02/10/18 10:07 Intake and Output: 02/10/18 02/10/18 06:59 18:59 Intake Total 1600 Output Total 2950 Balance -1350 - Medications Medications: Current Medications Albuterol/Ipratropium (Duoneb 3 Mg/0.5 Mg (3 Ml) Ud) 3 ml INH RQ4 [facility] Last Admin: 02/10/18 12:21 Dose: Not Given Dextrose (Dextrose 50% Inj) 0 ml IV STAT PRN; Protocol PRN Reason: Hypoglycemia Protocol Dextrose (Glutose 15) 15 gm PO ONCE PRN; Protocol PRN Reason: Hypoglycemia Protocol Enoxaparin Sodium (Lovenox) 40 mg SC DAILY [facility] Last Admin: 02/10/18 10:06 Dose: 40 mg Glucagon (Glucagen Diagnostic Kit) 1 mg IM STAT PRN; Protocol PRN Reason: Hypoglycemia Protocol Insulin Aspart (Novolog) 0 unit SC [facility]; Protocol Last Admin: 02/10/18 11:59 Dose: Not Given - Labs Labs: 02/10/18 07:17 02/10/18 07:17 - Head Exam Head Exam: NORMAL INSPECTION - Eye Exam Eye Exam: Normal appearance - ENT Exam ENT Exam: Mucous Membranes Moist - Respiratory Exam Respiratory Exam: Clear to Ausculation Bilateral - Cardiovascular Exam Cardiovascular Exam: REGULAR RHYTHM, +S1, +S2 - GI/Abdominal Exam GI & Abdominal Exam: Soft, Normal Bowel Sounds - Extremities Exam Extremities Exam: Normal Inspection - Neurological Exam Neurological Exam: Alert, Oriented x3 Assessment and Plan (1) Bowel obstruction Status: Acute (2) Vomiting Status: Acute (3) COPD (chronic obstructive pulmonary disease) Status: Acute - Assessment and Plan (Free Text) Plan: Continue NG tube to suction Surgery follow-up N.p.o. IV fluids Accu-Chek Insulin sliding scale Supportive care DVT/GI prophylax
--- NOTE | 2018-02-10 16:09 | RAD ---
Date of service: 02/09/2018 PROCEDURE: SMALL BOWEL SERIES HISTORY: small bowel obstruction not improving COMPARISON: ABDOMEN PELVIS CT WITH CONTRAST 02/07/2018 (IV contrast only, no oral contrast administered). TECHNIQUE: Following administration of water-soluble contrast material through a nasogastric tube deployed prior to the exam, a small bowel series was performed with numerous overhead images submitted for interpretation. FINDINGS: Examination was carried out up to 18 hr post initial oral contrast administration. Preliminary radiograph demonstrates small-bowel obstruction pattern once again without significant interval change greater prior CT 02/07/2018. Large bowel collapse is reiterated at the right hemicolon at least though limited oral contrast is seen from prior distant CT dated 01/23/2018. Subsequent administration oral contrast demonstrates transit of oral contrast only to the proximal and potential early mid small bowel segments by 18 hr. Unfortunately, after the initial 3 hr, patient's nasogastric tube is placed wall suction on return the patient back to his springer which may have limited the exam. Terminal ileum was never encountered and cannot be evaluated on spot fluoroscopy. Transition point is likely not reached by the termination of the exam. IMPRESSION: Persistent high-grade mechanical distal small bowel obstruction indicated by this examination with marked delay in oral contrast transit and persistent dilatation of small bowel diffusely.
--- NOTE | 2018-02-10 16:46 | CP.PCM.PN ---
Subjective - Date & Time of Evaluation Date of Evaluation: 02/10/18 Time of Evaluation: 10:28 - Subjective Subjective: Gen Surg: Dr Lopez Pt S&E. Removed NGT again. However reports he is passing flatus and this morning had a BM. His abdomen is much less distended. He reports his pain has resolved. He is feeling much better. Denies any further episodes of emesis or nausea. Also reports breathing has improved Objective - Vital Signs/Intake and Output Vital Signs (last 24 hours): Temp Pulse Resp BP Pulse Ox 97.6 F 70 20 119/81 100 02/10/18 16:00 02/10/18 16:00 02/10/18 16:00 02/10/18 16:00 02/10/18 16:00 Intake and Output: 02/10/18 02/10/18 06:59 18:59 Intake Total 1600 1100 Output Total 2950 225 Balance -1350 875 - Medications Medications: Current Medications Albuterol/Ipratropium (Duoneb 3 Mg/0.5 Mg (3 Ml) Ud) 3 ml INH RQ4 [facility] Last Admin: 02/10/18 15:47 Dose: Not Given Dextrose (Dextrose 50% Inj) 0 ml IV STAT PRN; Protocol PRN Reason: Hypoglycemia Protocol Dextrose (Glutose 15) 15 gm PO ONCE PRN; Protocol PRN Reason: Hypoglycemia Protocol Enoxaparin Sodium (Lovenox) 40 mg SC DAILY [facility] Last Admin: 02/10/18 10:06 Dose: 40 mg Glucagon (Glucagen Diagnostic Kit) 1 mg IM STAT PRN; Protocol PRN Reason: Hypoglycemia Protocol Insulin Aspart (Novolog) 0 unit SC [facility]; Protocol Last Admin: 02/10/18 11:59 Dose: Not Given - Labs Labs: 02/10/18 07:17 02/10/18 07:17 - Constitutional Appears: Non-toxic - ENT Exam ENT Exam: Mucous Membranes Dry - Respiratory Exam Respiratory Exam: absent: Respiratory Distress - Cardiovascular Exam Cardiovascular Exam: absent: Tachycardia - GI/Abdominal Exam GI & Abdominal Exam: Distended, Soft. absent: Firm, Tenderness - Neurological Exam Neurological Exam: Alert, Awake - Psychiatric Exam Psychiatric exam: Normal Affect - Skin Skin Exam: Normal Color, Warm Assessment and Plan - Assessment and Plan (Free Text) Assessment: 77M with SBO; resolving Plan: would refrain from diet advancement as pt still distended encourage ambulation, monitor for further BM possibly advance diet tomorrow if continues to improve clinically will d/w Dr Jessica Bowens, PGY4
[2018-02-11] MEDS: Albuterol-Ipratrop 3 mg / 0.5 (3 ml) UD INH SCH ×5 (03:43→21:10)
[2018-02-11 06:56] LABS: BASO # 0.1 K/uL (0.0-0.2); BASO % 0.5 % (0.0-2.0); EOS # 0.1 K/uL (0.0-0.7); EOS % 0.6 % (0.0-4.0); HEMOGLOBIN 12.8 g/dL (12.0-18.0); LYMPH # 2.9 K/uL (1.0-4.3); MEAN CELL VOLUME 80.8 fL (80.0-94.0); MEAN CORPUSCULAR HEMOGLOBIN 25.3 pg (27.0-31.0); MEAN CORPUSCULAR HGB CONC 31.3 g/dL (33.0-37.0); MEAN PLATELET VOLUME 6.8 fL (7.2-11.7); MONO # 1.1 K/uL (0.0-0.8); MONO % 9.3 % (0.0-10.0); NEUT # 7.9 K/uL (1.8-7.0); NEUT % 65.6 % (50.0-75.0); RBC 5.05 Mil/uL (4.40-5.90); RED CELL DISTRIBUTION WIDTH 17.8 % (11.5-14.5)
[2018-02-11] MEDS: (Novolog) Insulin Aspart, Recombinant 100 u/ml 10 ml vial SC SCH ×4 (07:30→22:00)
--- NOTE | 2018-02-11 08:44 | CP.PCM.PN ---
Subjective - Date & Time of Evaluation Date of Evaluation: 02/11/18 Time of Evaluation: 07:00 - Subjective Subjective: General surgery progress note for Dr. Huerta Patient seen and examined at bedside this AM. Per nursing, patient had 400cc's of bilious emesis overnight and no BM, though patient reports having a BM this AM. Nurse states that patient has had confusion overnight. Patient denies any pain but states that his abdomen is still swollen. Objective - Vital Signs/Intake and Output Vital Signs (last 24 hours): Temp Pulse Resp BP Pulse Ox 98.4 F 72 20 134/83 98 02/11/18 00:23 02/11/18 00:23 02/11/18 00:23 02/11/18 00:23 02/11/18 00:23 Intake and Output: 02/11/18 02/11/18 06:59 18:59 Intake Total 800 0 Output Total 500 700 Balance 300 -700 - Medications Medications: Current Medications Albuterol/Ipratropium (Duoneb 3 Mg/0.5 Mg (3 Ml) Ud) 3 ml INH RQ4 [facility] Last Admin: 02/11/18 07:22 Dose: Not Given Dextrose (Dextrose 50% Inj) 0 ml IV STAT PRN; Protocol PRN Reason: Hypoglycemia Protocol Dextrose (Glutose 15) 15 gm PO ONCE PRN; Protocol PRN Reason: Hypoglycemia Protocol Enoxaparin Sodium (Lovenox) 40 mg SC DAILY [facility] Last Admin: 02/10/18 10:06 Dose: 40 mg Glucagon (Glucagen Diagnostic Kit) 1 mg IM STAT PRN; Protocol PRN Reason: Hypoglycemia Protocol Insulin Aspart (Novolog) 0 unit SC [facility]; Protocol Last Admin: 02/10/18 21:29 Dose: Not Given Ondansetron HCl (Zofran Inj) 4 mg IVP DAILY@ONCE PRN PRN Reason: Nausea/Vomiting Last Admin: 02/11/18 04:24 Dose: 4 mg - Labs Labs: 02/11/18 06:45 02/10/18 07:17 - Constitutional Appears: Well, Non-toxic, No Acute Distress - Head Exam Head Exam: ATRAUMATIC, NORMOCEPHALIC - Eye Exam Eye Exam: Normal appearance. absent: Conjunctival injection, Scleral icterus - ENT Exam ENT Exam: Mucous Membranes Moist, Normal Oropharynx - Respiratory Exam Respiratory Exam: NORMAL BREATHING PATTERN. absent: Accessory Muscle Use, Respiratory Distress - Cardiovascular Exam Cardiovascular Exam: RRR - GI/Abdominal Exam GI & Abdominal Exam: Distended, Soft. absent: Tenderness - Extremities Exam Extremities Exam: absent: Calf Tenderness, Pedal Edema, Tenderness - Neurological Exam Neurological Exam: Alert, Awake, Oriented x3 - Psychiatric Exam Psychiatric exam: Normal Affect, Normal Mood - Skin Skin Exam: Dry, Normal Color, Warm Assessment and Plan - Assessment and Plan (Free Text) Assessment: 77M with SBO, emesis overnight with no bowel function since 10/2 PM Plan: continue NPO until further bowel function Monitor for further vomiting or worsening symptoms--will consider a NGT if symptoms worsen Continue IVF Encourage ambulation PRN pain and nausea medication Discussed with Dr. Lopez, who agrees with above Cinthya Saucedo, PGY2
[2018-02-11 08:59] LABS: BLOOD UREA NITROGEN 16 mg/dL (9-20); GFR NON-AFRICAN AMERICAN 59
--- NOTE | 2018-02-11 09:08 | RAD ---
Date of service: 02/10/2018 HISTORY: re-eval for SBO, see contrast transit from 02/09 COMPARISON: 02/09/2018 small bowel series with manager internet FINDINGS: BOWEL: Persistent obvious slightly decreased small bowel distension. The manager internet image preceding the small-bowel obstructive series on 02/17/2018. On this exam the NG tube is not visibly appreciated. There is increased gastric distension suggested on this exam in contrast to its absence on the prior study BONES: Degenerative changes lumbar spine and both hips and pubic symphysis OTHER FINDINGS: None. IMPRESSION: Persistent small-bowel distension yet less than before. An on going small-bowel obstruction-intermittent and or less complete is compatible with this appearance Continued close follow-up recommended. Interval removal of the NG tube. Currently the gas in the stomach is moderately pronounced-yet much more than before.
[2018-02-11] MEDS: Dextrose 5%/0.45% NS 1,000 ML IV SCH ×2 (11:30→23:58)
[2018-02-11] MEDS: Enoxaparin 40 mg Syringe SC SCH (13:16)
--- NOTE | 2018-02-11 13:58 | CP.PCM.PN ---
Subjective - Date & Time of Evaluation Date of Evaluation: 02/11/18 Time of Evaluation: 13:55 - Subjective Subjective: Patient seen and examined Improved distention Reports bowel movement this morning and passing gas NGT removed Objective - Vital Signs/Intake and Output Vital Signs (last 24 hours): Temp Pulse Resp BP Pulse Ox 98.2 F 81 20 114/73 98 02/11/18 08:00 02/11/18 08:00 02/11/18 08:00 02/11/18 08:00 02/11/18 08:00 Intake and Output: 02/11/18 02/11/18 06:59 18:59 Intake Total 800 0 Output Total 500 700 Balance 300 -700 - Medications Medications: Current Medications Albuterol/Ipratropium (Duoneb 3 Mg/0.5 Mg (3 Ml) Ud) 3 ml INH RQ4 [facility] Last Admin: 02/11/18 11:43 Dose: Not Given Dextrose (Dextrose 50% Inj) 0 ml IV STAT PRN; Protocol PRN Reason: Hypoglycemia Protocol Dextrose (Glutose 15) 15 gm PO ONCE PRN; Protocol PRN Reason: Hypoglycemia Protocol Enoxaparin Sodium (Lovenox) 40 mg SC DAILY [facility] Last Admin: 02/11/18 13:16 Dose: 40 mg Glucagon (Glucagen Diagnostic Kit) 1 mg IM STAT PRN; Protocol PRN Reason: Hypoglycemia Protocol Dextrose/Sodium Chloride (Dextrose 5%/0.45% Ns 1000 Ml) 1,000 mls @ 80 mls/hr IV .[id number] [facility] Last Admin: 02/11/18 11:30 Dose: 80 mls/hr Insulin Aspart (Novolog) 0 unit SC ACHS [facility]; Protocol Last Admin: 02/11/18 11:12 Dose: Not Given Ondansetron HCl (Zofran Inj) 4 mg IVP DAILY@ONCE PRN PRN Reason: Nausea/Vomiting Last Admin: 02/11/18 04:24 Dose: 4 mg Pantoprazole Sodium (Protonix Inj) 40 mg IVP DAILY [facility] Last Admin: 02/11/18 13:16 Dose: 40 mg - Labs Labs: 02/11/18 06:45 02/11/18 06:45 - Head Exam Head Exam: NORMAL INSPECTION - ENT Exam ENT Exam: Mucous Membranes Moist - Respiratory Exam Respiratory Exam: Clear to Ausculation Bilateral - Cardiovascular Exam Cardiovascular Exam: REGULAR RHYTHM, +S1, +S2 - GI/Abdominal Exam GI & Abdominal Exam: Hypoactive Bowel Sounds - Extremities Exam Extremities Exam: Normal Inspection Assessment and Plan (1) Bowel obstruction Status: Acute (2) Vomiting Status: Acute (3) COPD (chronic obstructive pulmonary disease) Status: Acute - Assessment and Plan (Free Text) Plan: Surgery follow-up IV fluids Accu-Chek Insulin sliding scale Supportive care DVT/GI prophylax
[2018-02-12] MEDS: Albuterol-Ipratrop 3 mg / 0.5 (3 ml) UD INH SCH ×4 (00:44→11:21)
[2018-02-12] MEDS: (Novolog) Insulin Aspart, Recombinant 100 u/ml 10 ml vial SC SCH ×4 (08:21→23:12)
[2018-02-12 08:23] LABS: BASO % 0.3 % (0.0-2.0); EOS # 0.5 K/uL (0.0-0.7); EOS % 5.8 % (0.0-4.0); HEMOGLOBIN 12.3 g/dL (12.0-18.0); LYMPH # 2.5 K/uL (1.0-4.3); LYMPH % 28.9 % (20.0-40.0); MEAN CELL VOLUME 82.4 fL (80.0-94.0); MEAN CORPUSCULAR HEMOGLOBIN 25.8 pg (27.0-31.0); MEAN CORPUSCULAR HGB CONC 31.3 g/dL (33.0-37.0); MEAN PLATELET VOLUME 6.8 fL (7.2-11.7); MONO % 10.9 % (0.0-10.0); NEUT # 4.7 K/uL (1.8-7.0); NEUT % 54.1 % (50.0-75.0); NRBC % 0.1 % (0.0-2.0); RBC 4.77 Mil/uL (4.40-5.90); RED CELL DISTRIBUTION WIDTH 18.3 % (11.5-14.5); WHITE BLOOD COUNT 8.8 K/uL (4.8-10.8)
[2018-02-12 08:54] LABS: BLOOD UREA NITROGEN 16 mg/dL (9-20); CALCIUM 8.4 mg/dl (8.6-10.4); GFR NON-AFRICAN AMERICAN 59
--- NOTE | 2018-02-12 08:59 | CP.PCM.PN ---
Subjective - Date & Time of Evaluation Date of Evaluation: 02/12/18 Time of Evaluation: 08:56 - Subjective Subjective: Surgery PT seen and examined. NGT placed yesterday. bilious output 1.5L /24hrs. Denies abd pain, denies BM. Pt is poor historian. Objective - Vital Signs/Intake and Output Vital Signs (last 24 hours): Temp Pulse Resp BP Pulse Ox 98.1 F 71 20 112/74 96 02/12/18 08:00 02/12/18 08:00 02/12/18 08:00 02/12/18 08:00 02/12/18 08:00 Intake and Output: 02/12/18 02/12/18 06:59 18:59 Intake Total 1280 Output Total 2400 Balance -1120 - Medications Medications: Current Medications Albuterol/Ipratropium (Duoneb 3 Mg/0.5 Mg (3 Ml) Ud) 3 ml INH RQ4 [facility] Last Admin: 02/12/18 07:49 Dose: Not Given Dextrose (Dextrose 50% Inj) 0 ml IV STAT PRN; Protocol PRN Reason: Hypoglycemia Protocol Dextrose (Glutose 15) 15 gm PO ONCE PRN; Protocol PRN Reason: Hypoglycemia Protocol Enoxaparin Sodium (Lovenox) 40 mg SC DAILY [facility] Last Admin: 02/11/18 13:16 Dose: 40 mg Glucagon (Glucagen Diagnostic Kit) 1 mg IM STAT PRN; Protocol PRN Reason: Hypoglycemia Protocol Dextrose/Sodium Chloride (Dextrose 5%/0.45% Ns 1000 Ml) 1,000 mls @ 80 mls/hr IV .[id number] [facility] Last Admin: 02/11/18 23:58 Dose: 80 mls/hr Insulin Aspart (Novolog) 0 unit SC ACHS [facility]; Protocol Last Admin: 02/12/18 08:21 Dose: Not Given Ondansetron HCl (Zofran Inj) 4 mg IVP DAILY@ONCE PRN PRN Reason: Nausea/Vomiting Last Admin: 02/11/18 04:24 Dose: 4 mg Pantoprazole Sodium (Protonix Inj) 40 mg IVP DAILY [facility] Last Admin: 02/11/18 13:16 Dose: 40 mg - Labs Labs: 02/12/18 07:40 02/12/18 07:40 - Constitutional Appears: No Acute Distress - Head Exam Head Exam: ATRAUMATIC, NORMAL INSPECTION, NORMOCEPHALIC - Eye Exam Eye Exam: EOMI, Normal appearance, PERRL Pupil Exam: NORMAL ACCOMODATION, PERRL - ENT Exam ENT Exam: Mucous Membranes Moist, Normal Exam - Neck Exam Neck Exam: Full ROM, Normal Inspection. absent: Lymphadenopathy - Respiratory Exam Respiratory Exam: NORMAL BREATHING PATTERN - Cardiovascular Exam Cardiovascular Exam: REGULAR RHYTHM, +S1, +S2. absent: Murmur - GI/Abdominal Exam GI & Abdominal Exam: Distended, Soft. absent: Firm, Guarding, Rigid, Tenderness - Extremities Exam Extremities Exam: Full ROM, Normal Capillary Refill, Normal Inspection. absent: Joint Swelling, Pedal Edema - Back Exam Back Exam: NORMAL INSPECTION - Neurological Exam Neurological Exam: Alert, Awake, CN II-XII Intact, Normal Gait, Oriented x3 - Psychiatric Exam Psychiatric exam: Normal Affect, Normal Mood - Skin Skin Exam: Dry, Intact, Normal Color, Warm Assessment and Plan - Assessment and Plan (Free Text) Assessment: 77M with SBO: Plan: continue NPO until further bowel function Monitor for further vomiting or worsening symptoms NGT to suction Continue IVF Encourage ambulation PRN pain and nausea medication Will Discuss with Dr. Lopez,
[2018-02-12] MEDS: Enoxaparin 40 mg Syringe SC SCH (10:27)
[2018-02-12] MEDS: Dextrose 5%/0.45% NS 1,000 ML IV SCH ×2 (11:24→12:46)
--- NOTE | 2018-02-12 18:00 | CP.PCM.PN ---
Subjective - Date & Time of Evaluation Date of Evaluation: 02/12/18 Time of Evaluation: 17:59 Objective - Vital Signs/Intake and Output Vital Signs (last 24 hours): Temp Pulse Resp BP Pulse Ox 97.6 F 80 20 98/65 L 96 02/12/18 15:30 02/12/18 15:30 02/12/18 15:30 02/12/18 15:30 02/12/18 15:30 Intake and Output: 02/12/18 02/12/18 06:59 18:59 Intake Total 1280 640 Output Total 2400 400 Balance -1120 240 - Medications Medications: Current Medications Dextrose (Dextrose 50% Inj) 0 ml IV STAT PRN; Protocol PRN Reason: Hypoglycemia Protocol Dextrose (Glutose 15) 15 gm PO ONCE PRN; Protocol PRN Reason: Hypoglycemia Protocol Enoxaparin Sodium (Lovenox) 40 mg SC DAILY [facility] Last Admin: 02/12/18 10:27 Dose: 40 mg Glucagon (Glucagen Diagnostic Kit) 1 mg IM STAT PRN; Protocol PRN Reason: Hypoglycemia Protocol Dextrose/Sodium Chloride (Dextrose 5%/0.45% Ns 1000 Ml) 1,000 mls @ 80 mls/hr IV .[id number] [facility] Last Admin: 02/12/18 12:46 Dose: Not Given Insulin Aspart (Novolog) 0 unit SC ACHS [facility]; Protocol Last Admin: 02/12/18 12:00 Dose: Not Given Ondansetron HCl (Zofran Inj) 4 mg IVP DAILY@ONCE PRN PRN Reason: Nausea/Vomiting Last Admin: 02/11/18 04:24 Dose: 4 mg Pantoprazole Sodium (Protonix Inj) 40 mg IVP DAILY [facility] Last Admin: 02/12/18 10:27 Dose: 40 mg - Labs Labs: 02/12/18 07:40 02/12/18 07:40 Assessment and Plan (1) Bowel obstruction Status: Acute (2) Vomiting Status: Acute (3) COPD (chronic obstructive pulmonary disease) Status: Acute
[2018-02-13] MEDS: Dextrose 5%/0.45% NS 1,000 ML IV SCH ×2 (00:10→12:30)
[2018-02-13] MEDS: (Novolog) Insulin Aspart, Recombinant 100 u/ml 10 ml vial SC SCH ×4 (07:48→21:36)
--- NOTE | 2018-02-13 10:18 | CP.PCM.PN ---
Subjective - Date & Time of Evaluation Date of Evaluation: 02/13/18 Time of Evaluation: 06:50 - Subjective Subjective: General surgery progress note for Dr. Lopez Pt seen and examined this AM. Patient had a large solid BM after the enema yesterday but had 700cc's out of the NGT overnight. Denies any nausea, vomiting, or pain Objective - Vital Signs/Intake and Output Vital Signs (last 24 hours): Temp Pulse Resp BP Pulse Ox 98.1 F 69 20 109/71 97 02/13/18 00:00 02/13/18 00:00 02/13/18 00:00 02/13/18 00:00 02/13/18 00:00 Intake and Output: 02/13/18 02/13/18 06:59 18:59 Intake Total 640 640 Output Total 650 1000 Balance -10 -360 - Medications Medications: Current Medications Bisacodyl (Dulcolax) 10 mg AR ONCE ONE Stop: 02/13/18 14:01 Dextrose (Dextrose 50% Inj) 0 ml IV STAT PRN; Protocol PRN Reason: Hypoglycemia Protocol Dextrose (Glutose 15) 15 gm PO ONCE PRN; Protocol PRN Reason: Hypoglycemia Protocol Enoxaparin Sodium (Lovenox) 40 mg SC DAILY [facility] Last Admin: 02/12/18 10:27 Dose: 40 mg Glucagon (Glucagen Diagnostic Kit) 1 mg IM STAT PRN; Protocol PRN Reason: Hypoglycemia Protocol Dextrose/Sodium Chloride (Dextrose 5%/0.45% Ns 1000 Ml) 1,000 mls @ 80 mls/hr IV .[id number] [facility] Last Admin: 02/13/18 00:10 Dose: 80 mls/hr Insulin Aspart (Novolog) 0 unit SC [facility]; Protocol Last Admin: 02/13/18 07:48 Dose: Not Given Ondansetron HCl (Zofran Inj) 4 mg IVP DAILY@ONCE PRN PRN Reason: Nausea/Vomiting Last Admin: 02/11/18 04:24 Dose: 4 mg Pantoprazole Sodium (Protonix Inj) 40 mg IVP DAILY [facility] Last Admin: 02/12/18 10:27 Dose: 40 mg - Labs Labs: 02/12/18 07:40 02/12/18 07:40 - Constitutional Appears: Well, Non-toxic, No Acute Distress - Head Exam Head Exam: ATRAUMATIC, NORMOCEPHALIC - Eye Exam Eye Exam: Normal appearance. absent: Conjunctival injection, Scleral icterus - ENT Exam ENT Exam: Mucous Membranes Moist, Normal Oropharynx - Respiratory Exam Respiratory Exam: NORMAL BREATHING PATTERN. absent: Accessory Muscle Use, Respi ratory Distress - Cardiovascular Exam Cardiovascular Exam: RRR - GI/Abdominal Exam GI & Abdominal Exam: Distended (mild), Soft. absent: Tenderness - Extremities Exam Extremities Exam: absent: Calf Tenderness, Pedal Edema, Tenderness - Neurological Exam Neurological Exam: Alert, Awake, Oriented x3 - Psychiatric Exam Psychiatric exam: Normal Affect, Normal Mood - Skin Skin Exam: Dry, Normal Color, Warm Assessment and Plan - Assessment and Plan (Free Text) Assessment: 77M with obstipation and small bowel ileus Plan: Continue to monitor NGT output and bowel function Continue to trend BMP, mag, phos--replete electrolytes as needed Continue NGT to continuous wall suction Repeat enema and give lactulose Encourage activity Seen and discussed with Dr. Jessica Saucedo, PGY2
[2018-02-13] MEDS: Enoxaparin 40 mg Syringe SC SCH (10:51)
[2018-02-13 11:50] LABS: ALB/GLOB RATIO 0.8 (1.0-2.1); ALBUMIN 2.8 g/dL (3.5-5.0); ALT/SGPT 16 U/L (21-72); AST/SGOT 18 U/L (17-59); BLOOD UREA NITROGEN 11 mg/dL (9-20); CALCIUM 8.2 mg/dl (8.6-10.4); GFR NON-AFRICAN AMERICAN > 60
[2018-02-13 13:38] LABS: ABG ALLEN TEST POS; ARTERIAL BLOOD GAS HCO3 34.9 mmol/L (21-28); ARTERIAL BLOOD GAS HEMOGLOBIN 11.1 g/dL (11.7-17.4); ARTERIAL BLOOD GAS O2 SAT 99.6 % (95-98); ARTERIAL BLOOD GAS PCO2 86 mm/Hg (35-45); ARTERIAL BLOOD GAS PO2 112 mm/Hg (80-100); ARTERIAL BLOOD GAS TCO2 44.9 mmol/L (22-28)
[2018-02-13 16:55] LABS: ABG ALLEN TEST P; ARTERIAL BLOOD GAS HCO3 34.9 mmol/L (21-28); ARTERIAL BLOOD GAS O2 SAT 81.1 % (95-98); ARTERIAL BLOOD GAS PCO2 60 mm/Hg (35-45); ARTERIAL BLOOD GAS PH 7.43 (7.35-7.45); ARTERIAL BLOOD GAS PO2 36 mm/Hg (80-100); ARTERIAL BLOOD GAS TCO2 41.6 mmol/L (22-28)
--- NOTE | 2018-02-13 17:44 | CP.PCM.PN ---
Subjective - Date & Time of Evaluation Date of Evaluation: 02/13/18 Objective - Vital Signs/Intake and Output Vital Signs (last 24 hours): Temp Pulse Resp BP Pulse Ox 97.9 F 76 20 98/61 L 97 02/13/18 16:00 02/13/18 16:00 02/13/18 16:00 02/13/18 16:00 02/13/18 00:00 Intake and Output: 02/13/18 02/13/18 06:59 18:59 Intake Total 640 1240 Output Total 650 1550 Balance -10 -310 - Medications Medications: Current Medications Dextrose (Dextrose 50% Inj) 0 ml IV STAT PRN; Protocol PRN Reason: Hypoglycemia Protocol Dextrose (Glutose 15) 15 gm PO ONCE PRN; Protocol PRN Reason: Hypoglycemia Protocol Enoxaparin Sodium (Lovenox) 40 mg SC DAILY [facility] Last Admin: 02/13/18 10:51 Dose: 40 mg Glucagon (Glucagen Diagnostic Kit) 1 mg IM STAT PRN; Protocol PRN Reason: Hypoglycemia Protocol Dextrose/Sodium Chloride (Dextrose 5%/0.45% Ns 1000 Ml) 1,000 mls @ 80 mls/hr IV .[id number] [facility] Last Admin: 02/13/18 12:30 Dose: 80 mls/hr Insulin Aspart (Novolog) 0 unit SC ACHS [facility]; Protocol Last Admin: 02/13/18 17:00 Dose: Not Given Ondansetron HCl (Zofran Inj) 4 mg IVP DAILY@ONCE PRN PRN Reason: Nausea/Vomiting Last Admin: 02/11/18 04:24 Dose: 4 mg Pantoprazole Sodium (Protonix Inj) 40 mg IVP DAILY [facility] Last Admin: 02/13/18 10:50 Dose: 40 mg - Labs Labs: 02/12/18 07:40 02/13/18 11:09 Assessment and Plan (1) Bowel obstruction Status: Acute (2) Vomiting Status: Acute (3) COPD (chronic obstructive pulmonary disease) Status: Acute
[2018-02-14] MEDS: Dextrose 5%/0.45% NS 1,000 ML IV SCH (01:10)
[2018-02-14] MEDS: (Novolog) Insulin Aspart, Recombinant 100 u/ml 10 ml vial SC SCH ×4 (07:52→21:20)
[2018-02-14 08:53] LABS: BASO # 0.1 K/uL (0.0-0.2); BASO % 0.6 % (0.0-2.0); EOS # 0.2 K/uL (0.0-0.7); EOS % 2.8 % (0.0-4.0); HEMOGLOBIN 11.9 g/dL (12.0-18.0); LYMPH % 34.6 % (20.0-40.0); MEAN CELL VOLUME 82.1 fL (80.0-94.0); MEAN CORPUSCULAR HEMOGLOBIN 25.7 pg (27.0-31.0); MEAN CORPUSCULAR HGB CONC 31.3 g/dL (33.0-37.0); MEAN PLATELET VOLUME 7.1 fL (7.2-11.7); MONO # 0.7 K/uL (0.0-0.8); MONO % 7.8 % (0.0-10.0); NEUT # 4.7 K/uL (1.8-7.0); NEUT % 54.2 % (50.0-75.0); NRBC % 0.1 % (0.0-2.0); RBC 4.64 Mil/uL (4.40-5.90); RED CELL DISTRIBUTION WIDTH 17.4 % (11.5-14.5); WHITE BLOOD COUNT 8.7 K/uL (4.8-10.8)
[2018-02-14] MEDS ORDERED: Mineral Oil Enema 135 ml RC ONE (08:55)
--- NOTE | 2018-02-14 08:58 | CP.PCM.PN ---
Subjective - Date & Time of Evaluation Date of Evaluation: 02/14/18 Time of Evaluation: 07:00 - Subjective Subjective: General surgery progress note for Dr. Lopez Pt seen and examined at bedside. Patient had a small bowel movement with the enema yesterday but no other bowel function. 1800cc's of dark green bilious fluid from the NGT/24 hours. patient reports abdominal pain around his umbilicus Objective - Vital Signs/Intake and Output Vital Signs (last 24 hours): Temp Pulse Resp BP Pulse Ox 98.6 F 82 20 100/68 96 02/14/18 08:00 02/14/18 08:00 02/14/18 08:00 02/14/18 08:00 02/14/18 08:00 Intake and Output: 02/14/18 02/14/18 06:59 18:59 Intake Total 1280 Output Total 1650 Balance -370 - Medications Medications: Current Medications Dextrose (Dextrose 50% Inj) 0 ml IV STAT PRN; Protocol PRN Reason: Hypoglycemia Protocol Dextrose (Glutose 15) 15 gm PO ONCE PRN; Protocol PRN Reason: Hypoglycemia Protocol Enoxaparin Sodium (Lovenox) 40 mg SC DAILY [facility] Last Admin: 02/13/18 10:51 Dose: 40 mg Glucagon (Glucagen Diagnostic Kit) 1 mg IM STAT PRN; Protocol PRN Reason: Hypoglycemia Protocol Dextrose/Sodium Chloride (Dextrose 5%/0.45% Ns 1000 Ml) 1,000 mls @ 80 mls/hr IV .[id number] [facility] Last Admin: 02/14/18 01:10 Dose: 80 mls/hr Insulin Aspart (Novolog) 0 unit SC ACHS [facility]; Protocol Last Admin: 02/14/18 07:52 Dose: Not Given Lactulose (Enulose) 20 gm PO DAILY [facility] Mineral Oil (Fleet Mineral Oil Enema) 135 ml RC ONCE ONE Stop: 02/14/18 08:56 Ondansetron HCl (Zofran Inj) 4 mg IVP DAILY@ONCE PRN PRN Reason: Nausea/Vomiting Last Admin: 02/11/18 04:24 Dose: 4 mg Pantoprazole Sodium (Protonix Inj) 40 mg IVP DAILY [facility] Last Admin: 02/13/18 10:50 Dose: 40 mg - Labs Labs: 02/14/18 08:43 02/13/18 11:09 - Constitutional Appears: Well, Non-toxic, No Acute Distress - Head Exam Head Exam: ATRAUMATIC, NORMOCEPHALIC - Eye Exam Eye Exam: Normal appearance. absent: Conjunctival injection, Scleral icterus - ENT Exam ENT Exam: Mucous Membranes Moist, Normal Oropharynx - Respiratory Exam Respiratory Exam: absent: Accessory Muscle Use, Respiratory Distress Additional comments: tachypneic, dyspnea with speech - GI/Abdominal Exam GI & Abdominal Exam: Distended, Soft, Tenderness (umbilical), Hernia (umbilical hernia with no contents). absent: Rebound - Extremities Exam Extremities Exam: absent: Calf Tenderness, Pedal Edema, Tenderness - Neurological Exam Neurological Exam: Alert, Awake, Oriented x3 - Psychiatric Exam Psychiatric exam: Normal Affect, Normal Mood - Skin Skin Exam: Dry, Normal Color, Warm Assessment and Plan - Assessment and Plan (Free Text) Assessment: 77M with ileus vs sbo Plan: Continue NGT to suction, monitor output Continue NPO Continue to trend BMP, MG, PHOS and supplement electrolytes as needed repeat enema today, lactulose, and supplement mag/phos Encourage activity in the the bed as per PT PRN nausea medication IVF further surgical planning pending clinical course--continue conservative managem ent at this time Discussed with Dr. Jessica Saucedo, PGY2
[2018-02-14 09:16] LABS: BLOOD UREA NITROGEN 10 mg/dL (9-20); CALCIUM 8.2 mg/dl (8.6-10.4); GFR NON-AFRICAN AMERICAN > 60
[2018-02-14] MEDS ORDERED: Potassium Phosphate 15 MMOLE in Sodium Chloride 0.9% 250 ML IV ONE (09:24)
[2018-02-14] MEDS ORDERED: Magnesium Sulfate 1 gm in D5W 1 GM/100 ML BAG IVPB ONE (09:26)
[2018-02-14] MEDS: Enoxaparin 40 mg Syringe SC SCH (09:33)
--- NOTE | 2018-02-15 07:24 | CP.PCM.PN ---
Subjective - Date & Time of Evaluation Date of Evaluation: 02/15/18 Time of Evaluation: 06:55 - Subjective Subjective: General Surgery Pt seen and examined. Pt had one bowel movement yesterday but no other bowel function. 550cc's of green bilious fluid from the NGT/24 hours. Denies any complaints. Objective - Vital Signs/Intake and Output Vital Signs (last 24 hours): Temp Pulse Resp BP Pulse Ox 97.7 F 79 20 123/81 96 02/14/18 23:33 02/14/18 23:33 02/14/18 23:33 02/14/18 23:33 02/14/18 23:33 Intake and Output: 02/15/18 02/15/18 06:59 18:59 Intake Total 600 Output Total 650 Balance -50 - Medications Medications: Current Medications Dextrose (Dextrose 50% Inj) 0 ml IV STAT PRN; Protocol PRN Reason: Hypoglycemia Protocol Dextrose (Glutose 15) 15 gm PO ONCE PRN; Protocol PRN Reason: Hypoglycemia Protocol Glucagon (Glucagen Diagnostic Kit) 1 mg IM STAT PRN; Protocol PRN Reason: Hypoglycemia Protocol Insulin Aspart (Novolog) 0 unit SC ACHS [facility]; Protocol Last Admin: 02/14/18 21:20 Dose: Not Given Lactulose (Enulose) 20 gm PO DAILY [facility] Last Admin: 02/14/18 09:33 Dose: 20 gm Ondansetron HCl (Zofran Inj) 4 mg IVP DAILY@ONCE PRN PRN Reason: Nausea/Vomiting Last Admin: 02/11/18 04:24 Dose: 4 mg Pantoprazole Sodium (Protonix Inj) 40 mg IVP DAILY [facility] Last Admin: 02/14/18 09:33 Dose: 40 mg - Labs Labs: 02/14/18 08:43 02/14/18 08:43 - Constitutional Appears: Non-toxic, No Acute Distress, Chronically Ill - Head Exam Head Exam: ATRAUMATIC, NORMOCEPHALIC - Eye Exam Eye Exam: EOMI. absent: Scleral icterus - Respiratory Exam Respiratory Exam: NORMAL BREATHING PATTERN. absent: Respiratory Distress - Cardiovascular Exam Cardiovascular Exam: absent: Bradycardia, Tachycardia - GI/Abdominal Exam GI & Abdominal Exam: Distended (mild), Soft, Hernia (umbilical). absent: Firm, Guarding, Rigid, Tenderness, Rebound - Extremities Exam Extremities Exam: absent: Calf Tenderness, Pedal Edema - Neurological Exam Neurological Exam: Alert, Awake - Skin Skin Exam: Dry, Warm Assessment and Plan - Assessment and Plan (Free Text) Assessment: 77M with ileus vs pSBO Plan: Continue NGT to suction, monitor output Continue NPO Replete electrolytes as needed Flat plate today Encourage activity in the the bed as per PT PRN nausea medication IVF Will D/W Dr. Jessica Colon PGY4
[2018-02-15 07:29] LABS: BASO # 0.1 K/uL (0.0-0.2); BASO % 0.7 % (0.0-2.0); EOS # 0.2 K/uL (0.0-0.7); EOS % 2.3 % (0.0-4.0); HEMOGLOBIN 12.5 g/dL (12.0-18.0); LYMPH # 2.2 K/uL (1.0-4.3); LYMPH % 21.7 % (20.0-40.0); MEAN CELL VOLUME 82.2 fL (80.0-94.0); MEAN CORPUSCULAR HEMOGLOBIN 25.9 pg (27.0-31.0); MEAN CORPUSCULAR HGB CONC 31.6 g/dL (33.0-37.0); MEAN PLATELET VOLUME 6.5 fL (7.2-11.7); MONO # 0.7 K/uL (0.0-0.8); MONO % 7.1 % (0.0-10.0); NEUT % 68.2 % (50.0-75.0); RBC 4.82 Mil/uL (4.40-5.90); RED CELL DISTRIBUTION WIDTH 17.6 % (11.5-14.5); WHITE BLOOD COUNT 10.3 K/uL (4.8-10.8)
[2018-02-15 08:23] LABS: BLOOD UREA NITROGEN 10 mg/dL (9-20); CALCIUM 8.4 mg/dl (8.6-10.4); GFR NON-AFRICAN AMERICAN > 60
[2018-02-15] MEDS: (Novolog) Insulin Aspart, Recombinant 100 u/ml 10 ml vial SC SCH ×4 (08:23→23:14)
[2018-02-15] MEDS ORDERED: Potassium Phosphate 15 MMOLE in Sodium Chloride 0.9% 250 ML IVPB ONE (11:00)
--- NOTE | 2018-02-15 18:00 | RAD ---
Date of service: 02/15/2018 HISTORY: ileus vs obstruction COMPARISON: 02/10/2018 FINDINGS: BOWEL: Persistent dilatation of small bowel although contrast and air is seen in nondistended colon. Nasogastric tube decompresses previously distended stomach. No free air identified under the diaphragms. BONES: Severe degenerative/posttraumatic changes right hip. OTHER FINDINGS: None. IMPRESSION: Persistent dilatation of small bowel likely ileus or incomplete small bowel obstruction.
[2018-02-15] MEDS: Dextrose 5%/0.9% NS 1,000 ML IV SCH (18:20)
--- NOTE | 2018-02-15 18:24 | CP.PCM.PN ---
Subjective - Date & Time of Evaluation Date of Evaluation: 02/15/18 Time of Evaluation: 18:24 Objective - Vital Signs/Intake and Output Vital Signs (last 24 hours): Temp Pulse Resp BP Pulse Ox 98.7 F 81 20 117/78 97 02/15/18 15:00 02/15/18 15:00 02/15/18 15:00 02/15/18 15:00 02/15/18 15:00 Intake and Output: 02/15/18 02/15/18 06:59 18:59 Intake Total 600 250 Output Total 650 400 Balance -50 -150 - Medications Medications: Current Medications Dextrose (Dextrose 50% Inj) 0 ml IV STAT PRN; Protocol PRN Reason: Hypoglycemia Protocol Dextrose (Glutose 15) 15 gm PO ONCE PRN; Protocol PRN Reason: Hypoglycemia Protocol Glucagon (Glucagen Diagnostic Kit) 1 mg IM STAT PRN; Protocol PRN Reason: Hypoglycemia Protocol Dextrose/Sodium Chloride (Dextrose 5%/0.9% Ns 1000 Ml) 1,000 mls @ 75 mls/hr IV .[id number] [facility] Last Admin: 02/15/18 18:20 Dose: 75 mls/hr Insulin Aspart (Novolog) 0 unit SC ACHS [facility]; Protocol Last Admin: 02/15/18 18:20 Dose: Not Given Lactulose (Enulose) 20 gm PO DAILY [facility] Last Admin: 02/15/18 11:00 Dose: 20 gm Ondansetron HCl (Zofran Inj) 4 mg IVP DAILY@ONCE PRN PRN Reason: Nausea/Vomiting Last Admin: 02/11/18 04:24 Dose: 4 mg Pantoprazole Sodium (Protonix Inj) 40 mg IVP DAILY [facility] Last Admin: 02/15/18 11:00 Dose: 40 mg - Labs Labs: 02/15/18 07:22 02/15/18 07:22 Assessment and Plan (1) Bowel obstruction Status: Acute (2) Vomiting Status: Acute (3) COPD (chronic obstructive pulmonary disease) Status: Acute
[2018-02-16] MEDS: Dextrose 5%/0.9% NS 1,000 ML IV SCH ×2 (05:56→20:03)
[2018-02-16] MEDS: (Novolog) Insulin Aspart, Recombinant 100 u/ml 10 ml vial SC SCH ×4 (08:06→21:52)
--- NOTE | 2018-02-16 08:41 | CP.PCM.PN ---
Subjective - Date & Time of Evaluation Date of Evaluation: 02/16/18 Time of Evaluation: 08:38 - Subjective Subjective: Surgery PT seen and examined. No acute events. HAd BM yesterday after enema x2. Denies vomiting. pain controlled. NGT on suction. 250cc/24hrs. Objective - Vital Signs/Intake and Output Vital Signs (last 24 hours): Temp Pulse Resp BP Pulse Ox 98.9 F 79 22 120/69 97 02/16/18 07:07 02/16/18 07:07 02/16/18 07:07 02/16/18 07:07 02/16/18 07:07 Intake and Output: 02/16/18 02/16/18 06:59 18:59 Intake Total 450 600 Output Total 400 250 Balance 50 350 - Medications Medications: Current Medications Dextrose (Dextrose 50% Inj) 0 ml IV STAT PRN; Protocol PRN Reason: Hypoglycemia Protocol Dextrose (Glutose 15) 15 gm PO ONCE PRN; Protocol PRN Reason: Hypoglycemia Protocol Glucagon (Glucagen Diagnostic Kit) 1 mg IM STAT PRN; Protocol PRN Reason: Hypoglycemia Protocol Dextrose/Sodium Chloride (Dextrose 5%/0.9% Ns 1000 Ml) 1,000 mls @ 75 mls/hr IV .[id number] [facility] Last Admin: 02/16/18 05:56 Dose: 75 mls/hr Insulin Aspart (Novolog) 0 unit SC ACHS [facility]; Protocol Last Admin: 02/16/18 08:06 Dose: Not Given Lactulose (Enulose) 20 gm PO DAILY [facility] Last Admin: 02/15/18 11:00 Dose: 20 gm Metoclopramide HCl (Reglan) 10 mg IVP DAILY@ONCE PRN PRN Reason: Nausea/Vomiting Ondansetron HCl (Zofran Inj) 4 mg IVP DAILY@ONCE PRN PRN Reason: Nausea/Vomiting Last Admin: 02/11/18 04:24 Dose: 4 mg Pantoprazole Sodium (Protonix Inj) 40 mg IVP DAILY [facility] Last Admin: 02/15/18 11:00 Dose: 40 mg - Labs Labs: 02/15/18 07:22 02/15/18 07:22 - Constitutional Appears: No Acute Distress - Head Exam Head Exam: ATRAUMATIC, NORMAL INSPECTION, NORMOCEPHALIC - Eye Exam Eye Exam: EOMI, Normal appearance, PERRL Pupil Exam: NORMAL ACCOMODATION, PERRL - ENT Exam ENT Exam: Mucous Membranes Moist, Normal Exam - Neck Exam Neck Exam: Full ROM, Normal Inspection. absent: Lymphadenopathy - Respiratory Exam Respiratory Exam: NORMAL BREATHING PATTERN - Cardiovascular Exam Cardiovascular Exam: REGULAR RHYTHM, +S1, +S2. absent: Murmur - GI/Abdominal Exam GI & Abdominal Exam: Soft. absent: Firm, Guarding, Rigid, Tenderness, Rebound - Exam Exam: NORMAL INSPECTION - Extremities Exam Extremities Exam: Full ROM, Normal Capillary Refill, Normal Inspection. absent: Joint Swelling, Pedal Edema - Back Exam Back Exam: NORMAL INSPECTION - Neurological Exam Neurological Exam: Alert, Awake, CN II-XII Intact, Oriented x3 - Psychiatric Exam Psychiatric exam: Normal Affect, Normal Mood - Skin Skin Exam: Dry, Intact, Normal Color, Warm Assessment and Plan - Assessment and Plan (Free Text) Assessment: 77M with ileus vs pSBO Plan: Continue NGT clamp trial CLD, advance as tolerated Replete electrolytes as needed Encourage activity PRN nausea medication IVF Will D/W Dr. Lopez
--- NOTE | 2018-02-16 16:56 | CP.PCM.PN ---
Subjective - Date & Time of Evaluation Date of Evaluation: 02/16/18 Time of Evaluation: 16:56 Objective - Vital Signs/Intake and Output Vital Signs (last 24 hours): Temp Pulse Resp BP Pulse Ox 97.6 F 97 H 23 99/62 L 90 L 02/16/18 16:00 02/16/18 16:00 02/16/18 16:00 02/16/18 16:00 02/16/18 16:00 Intake and Output: 02/16/18 02/16/18 06:59 18:59 Intake Total 450 1320 Output Total 400 535 Balance 50 785 - Medications Medications: Current Medications Dextrose (Dextrose 50% Inj) 0 ml IV STAT PRN; Protocol PRN Reason: Hypoglycemia Protocol Dextrose (Glutose 15) 15 gm PO ONCE PRN; Protocol PRN Reason: Hypoglycemia Protocol Glucagon (Glucagen Diagnostic Kit) 1 mg IM STAT PRN; Protocol PRN Reason: Hypoglycemia Protocol Dextrose/Sodium Chloride (Dextrose 5%/0.9% Ns 1000 Ml) 1,000 mls @ 75 mls/hr IV .[id number] [facility] Last Admin: 02/16/18 05:56 Dose: 75 mls/hr Insulin Aspart (Novolog) 0 unit SC ACHS [facility]; Protocol Last Admin: 02/16/18 11:15 Dose: Not Given Lactulose (Enulose) 20 gm PO DAILY [facility] Last Admin: 02/16/18 09:45 Dose: 20 gm Metoclopramide HCl (Reglan) 10 mg IVP DAILY@ONCE PRN PRN Reason: Nausea/Vomiting Ondansetron HCl (Zofran Inj) 4 mg IVP DAILY@ONCE PRN PRN Reason: Nausea/Vomiting Last Admin: 02/11/18 04:24 Dose: 4 mg Pantoprazole Sodium (Protonix Inj) 40 mg IVP DAILY [facility] Last Admin: 02/16/18 09:45 Dose: 40 mg - Labs Labs: 02/15/18 07:22 02/15/18 07:22 Assessment and Plan (1) Bowel obstruction Status: Acute (2) Vomiting Status: Acute (3) COPD (chronic obstructive pulmonary disease) Status: Acute
[2018-02-17] MEDS: (Novolog) Insulin Aspart, Recombinant 100 u/ml 10 ml vial SC SCH ×3 (08:45→18:13)
[2018-02-17] MEDS ORDERED: DOPamine 400mg/250ml D5W 400 MG/250 ML BAG IV PRN (09:22)
--- NOTE | 2018-02-17 09:23 | CP.PCM.PN ---
<Tiara Harper - Last Filed: 02/17/18 09:55> Subjective - Date & Time of Evaluation Date of Evaluation: 02/17/18 Time of Evaluation: 08:45 - Subjective Subjective: ROB[employer] MECH[employer]IC called at 8:44 for patient who vomited and was unresponsive. Code Nahun called at 8:45 because patient was unresponsive with no pulse felt. ACLS protocol initiated. Compressions were started. Epinephrine 1mg given at 850. Patient intubated at 8:52. ROSC achieved. At 8:55 patient seized. Glucose found to be 171. VS: 121/93, P: 217 Ativan 2mg given at 9am. Patient transferred to ICU. Labs ordered: CBC, CMP, Mag, Phos, ABG with shock, GUNJAN Imaging ordered: EKG, Cxray, Head CT without contrast Objective - Vital Signs/Intake and Output Vital Signs (last 24 hours): Temp Pulse Resp BP Pulse Ox 97 F L 95 H 22 110/75 94 L 02/17/18 00:00 02/17/18 00:00 02/17/18 00:00 02/17/18 00:00 02/17/18 00:00 Intake and Output: 02/17/18 02/17/18 06:59 18:59 Intake Total 1200 Output Total 500 Balance 700 - Medications Medications: Current Medications Dextrose (Dextrose 50% Inj) 0 ml IV STAT PRN; Protocol PRN Reason: Hypoglycemia Protocol Dextrose (Glutose 15) 15 gm PO ONCE PRN; Protocol PRN Reason: Hypoglycemia Protocol Glucagon (Glucagen Diagnostic Kit) 1 mg IM STAT PRN; Protocol PRN Reason: Hypoglycemia Protocol Dextrose/Sodium Chloride (Dextrose 5%/0.9% Ns 1000 Ml) 1,000 mls @ 75 mls/hr IV .[id number] [facility] Last Admin: 02/16/18 20:03 Dose: 75 mls/hr Insulin Aspart (Novolog) 0 unit SC ACHS [facility]; Protocol Last Admin: 02/16/18 21:52 Dose: Not Given Lactulose (Enulose) 20 gm PO DAILY [facility] Last Admin: 02/16/18 09:45 Dose: 20 gm Metoclopramide HCl (Reglan) 10 mg IVP DAILY@ONCE PRN PRN Reason: Nausea/Vomiting Ondansetron HCl (Zofran Inj) 4 mg IVP DAILY@ONCE PRN PRN Reason: Nausea/Vomiting Last Admin: 02/11/18 04:24 Dose: 4 mg Pantoprazole Sodium (Protonix Inj) 40 mg IVP DAILY [facility] Last Admin: 02/16/18 09:45 Dose: 40 mg - Labs Labs: 02/15/18 07:22 02/15/18 07:22 - Constitutional Appears: Toxic, Chronically Ill - Head Exam Head Exam: ATRAUMATIC, NORMAL INSPECTION, NORMOCEPHALIC - ENT Exam ENT Exam: Mucous Membranes Moist - Respiratory Exam Additional comments: intubated - Cardiovascular Exam Cardiovascular Exam: Tachycardia - GI/Abdominal Exam GI & Abdominal Exam: Distended - Neurological Exam Neurological Exam: Altered <BorkerDongSobia V - Last Filed: 02/17/18 23:46> Objective - Vital Signs/Intake and Output Vital Signs (last 24 hours): Temp Pulse Resp BP Pulse Ox 97.5 F L 104 H 39 H 109/90 68 L 02/17/18 20:00 02/17/18 21:03 02/17/18 21:03 02/17/18 21:03 02/17/18 21:03 Intake and Output: 02/17/18 02/18/18 18:59 06:59 Intake Total 4241 1252 Output Total 650 0 Balance 3591 1252 - Medications Medications: Current Medications Dextrose (Dextrose 50% Inj) 0 ml IV STAT PRN; Protocol PRN Reason: Hypoglycemia Protocol Last Admin: 02/17/18 18:00 Dose: 50 ml Dextrose (Glutose 15) 15 gm PO ONCE PRN; Protocol PRN Reason: Hypoglycemia Protocol Glucagon (Glucagen Diagnostic Kit) 1 mg IM STAT PRN; Protocol PRN Reason: Hypoglycemia Protocol Hydromorphone HCl (Dilaudid) 1 mg IVP ONCE PRN PRN Reason: Pain, severe (8-10) Norepinephrine Bitartrate 4 mg (/ Sodium Chloride) 250 mls @ 15 mls/hr IV .[id number] PRN; Protocol PRN Reason: TITRATE PER MD ORDER Last Titration: 02/17/18 19:41 Dose: 20 mcg/min, 75 mls/hr Epinephrine HCl 4 mg/ Sodium (Chloride) 1,004 mls @ 15.06 mls/hr IV .Q24H PRN; Protocol PRN Reason: TITRATE PER MD ORDER Insulin Aspart (Novolog) 0 unit SC Q6H [facility]; Protocol Lactulose (Enulose) 20 gm PO DAILY [facility] Last Admin: 02/17/18 11:50 Dose: Not Given Metoclopramide HCl (Reglan) 10 mg IVP DAILY@ONCE PRN PRN Reason: Nausea/Vomiting Ondansetron HCl (Zofran Inj) 4 mg IVP DAILY@ONCE PRN PRN Reason: Nausea/Vomiting Last Admin: 02/11/18 04:24 Dose: 4 mg Pantoprazole Sodium (Protonix Inj) 40 mg IVP DAILY [facility] Last Admin: 02/17/18 18:14 Dose: 40 mg - Labs Labs: 02/17/18 09:45 02/17/18 09:45 PT 21.0 SECONDS (9.7-12.2) H 02/17/18 09:45 INR 1.9 02/17/18 09:45 APTT 36 SECONDS (21-34) H 02/17/18 09:45 Attending/Attestation - Attestation Notes (Text): Brief hospitalist note Rapid response was called subsequent CODE BLUE called. Patient likely aspirated and bowel contents per nursing staff patient had remove NG tube last night. Patient being treated for small bowel projection. Per nursing patient is ""full code" prior to intubation gastric contents noted as well as compressions bicarbonate and following intubation and which retrieval of Ross CAD seizure. Patient was a subsequent CODE BLUE about 2 more times. However it was discovered later the patient does have a advance care directive in the EMR with the DNR/DNI which was amended. Please note we did attempt to obtain CODE STATUS at time of first code discussed with patient's primary care nurse the noted full code. Contacted patient's PMD Dr. Humphrey who is aware
--- NOTE | 2018-02-17 09:34 | RAD ---
Date of service: 02/17/2018 HISTORY: post intubation COMPARISON: Portable chest 02/07/2018. FINDINGS: LUNGS: Marked bronchovascular markings are somewhat accentuated however there is no significant interval change bilaterally. No alveolitis. PLEURA: No significant pleural effusion identified, no pneumothorax apparent. CARDIOVASCULAR: Normal. No pulmonary vascular congestion. External pacer identified in the interval. OSSEOUS STRUCTURES: No significant abnormalities. VISUALIZED UPPER ABDOMEN: Nasogastric tube is identified placed terminating at the left upper quadrant abdomen and is somewhat retracted but still remains in the abdomen. OTHER FINDINGS: Incidental note is made of cervical spinal fusion hardware once again. IMPRESSION: No acute cardiopulmonary disease appreciable this time it the examination appears stable. Nasogastric tube slightly retracted but remains in the abdomen once again and external pacer now in position.
[2018-02-17] MEDS ORDERED: Sodium Bicarbonate (8.4%) 50 Meq Syringe IVP ONE (09:39)
[2018-02-17 09:58] LABS: BASO % 0.2 % (0.0-2.0); LYMPH # 2.4 K/uL (1.0-4.3); MEAN CORPUSCULAR HEMOGLOBIN 25.4 pg (27.0-31.0); RBC 3.84 Mil/uL (4.40-5.90)
[2018-02-17 10:02] LABS: INR 1.9
[2018-02-17 10:11] LABS: ALB/GLOB RATIO 0.7 (1.0-2.1); ALT/SGPT 8 U/L (21-72); AST/SGOT 17 U/L (17-59); BLOOD UREA NITROGEN 14 mg/dL (9-20); CALCIUM 6.3 mg/dl (8.6-10.4); GFR NON-AFRICAN AMERICAN 59
[2018-02-17 10:16] LABS: EOS % 0.1 % (0.0-4.0); LYMPH % 27.1 % (20.0-40.0); MEAN CORPUSCULAR HGB CONC 29.6 g/dL (33.0-37.0); MEAN PLATELET VOLUME 7.1 fL (7.2-11.7); MONO # 0.4 K/uL (0.0-0.8); MONO % 4.4 % (0.0-10.0); NEUT # 6.1 K/uL (1.8-7.0); NEUT % 68.2 % (50.0-75.0); NRBC % 0.3 % (0.0-2.0); RED CELL DISTRIBUTION WIDTH 18.6 % (11.5-14.5); WHITE BLOOD COUNT 8.9 K/uL (4.8-10.8)
[2018-02-17 10:18] LABS: HEMOGLOBIN 9.8 g/dL (12.0-18.0)
[2018-02-17] MEDS: EPINEPHrine- 1 MG in Sodium Chloride 0.9% 250 ML IV PRN ×5 (11:45→21:48)
[2018-02-17] MEDS ORDERED: HYDROmorphone 0.5 mg/0.5 ml ISec IVP ONE (13:15)
[2018-02-17] MEDS ORDERED: HYDROmorphone 1 mg/ml ISec IVP ONE (14:00)
[2018-02-17] MEDS ORDERED: HYDROmorphone 1 mg/ml ISec IVP PRN (14:15)
--- NOTE | 2018-02-17 14:34 | CP.PCM.CON ---
<Waqas Johnson L - Last Filed: 02/17/18 16:33> History of Present Illness - History of Present Illness History of Present Illness: Critical Care Consult Note Patient is a 77 year old male with past medical history dementia, bladder cancer, afib, GERD, diverticulitis, cervical cord compression/stenosis presenting from long term with emesis and found to have bowel obstruction. Per surgery team, patient had been having regular bowel movements with conservative management, however he pulled out his NG tube last night. Patient was found apneic this morning and code blue was called at 8:45 AM. ACLS protocol was initiated, patient was intubated. Patient was noted to have a tonic seizure. Patient was then transferred to ICU. After arriving in ICU, patient was noted pulseless at 9:23 AM, code blue was called with ROSC at 09:30 AM. Patient was found pulseless again at 10:17, code blue was called with ROSC at 10:22. Patient was started on dopamine and bicarb drip. Review of Systems - Review of Systems Systems not reviewed;Unavailable: Intubated Past Patient History - Infectious Disease Hx of Infectious Diseases: None - Past Medical History & Family History Past Medical History?: Yes - Past Social History Smoking Status: Former Smoker - CARDIAC Hx Congestive Heart Failure: Yes Hx Hypertension: Yes - PULMONARY Hx Chronic Obstructive Pulmonary Disease (COPD): Yes - NEUROLOGICAL Hx Neurological Disorder: Yes Other/Comment: CERVICAL CORD COMPRESSION. CERVICAL STENOSIS. NEUROPATHY - HEENT Hx HEENT Problems: No - RENAL Hx Chronic Kidney Disease: No - ENDOCRINE/METABOLIC Hx Endocrine Disorders: No - HEMATOLOGICAL/ONCOLOGICAL Hx Blood Disorders: No - INTEGUMENTARY Hx Dermatological Problems: Yes Other/Comment: LEFT LOWER EXTREMITY CELLULITIS - MUSCULOSKELETAL/RHEUMATOLOGICAL Hx Arthritis: Yes (B/L HAND DEFORMITY) - GASTROINTESTINAL Hx Diverticulitis: Yes - GENITOURINARY/GYNECOLOGICAL Hx Genitourinary Disorders: Yes Hx Bladder Stone: Yes Hx Hematuria: Yes Hx Urinary Tract Infection: Yes - PSYCHIATRIC Hx Substance Use: No - SURGICAL HISTORY Hx Surgeries: Yes Other/Comment: HX: FLEXIBLE CYSTOSCOPY(08/28/15) - ANESTHESIA Hx Anesthesia: Yes Hx Anesthesia Reactions: No Meds Allergies/Adverse Reactions: Allergies Allergy/AdvReac Type Severity Reaction Status Date / Time No Known Allergies Allergy Verified 01/13/18 01:29 - Medications Medications: Current Medications Dextrose (Dextrose 50% Inj) 0 ml IV STAT PRN; Protocol PRN Reason: Hypoglycemia Protocol Dextrose (Glutose 15) 15 gm PO ONCE PRN; Protocol PRN Reason: Hypoglycemia Protocol Glucagon (Glucagen Diagnostic Kit) 1 mg IM STAT PRN; Protocol PRN Reason: Hypoglycemia Protocol Hydromorphone HCl (Dilaudid) 1 mg IVP ONCE PRN PRN Reason: Pain, severe (8-10) Dopamine HCl/Dextrose (Dopamine 400mg/250ml D5w) 400 mg in 250 mls @ 14.543 mls/hr IV .[id number] PRN; Protocol PRN Reason: TITRATE PER MD ORDER Last Admin: 02/17/18 09:20 Dose: 20 mcg/kg/min, 58.173 mls/hr Sodium Bicarbonate 100 meq/ (Sodium Chloride) 1,100 mls @ 100 mls/hr IV .Q11H ONE Stop: 02/17/18 21:24 Last Admin: 02/17/18 11:45 Dose: 100 mls/hr Epinephrine HCl 1 mg/ Sodium (Chloride) 251 mls @ 15.06 mls/hr IV .[id number] PRN; Protocol PRN Reason: TITRATE PER MD ORDER Last Admin: 02/17/18 11:45 Dose: 1 mcg/min, 15.06 mls/hr Insulin Aspart (Novolog) 0 unit SC ACHS [facility]; Protocol Last Admin: 02/17/18 11:59 Dose: Not Given Lactulose (Enulose) 20 gm PO DAILY [facility] Last Admin: 02/17/18 11:50 Dose: Not Given Metoclopramide HCl (Reglan) 10 mg IVP DAILY@ONCE PRN PRN Reason: Nausea/Vomiting Ondansetron HCl (Zofran Inj) 4 mg IVP DAILY@ONCE PRN PRN Reason: Nausea/Vomiting Last Admin: 02/11/18 04:24 Dose: 4 mg Pantoprazole Sodium (Protonix Inj) 40 mg IVP DAILY [facility] Last Admin: 02/16/18 09:45 Dose: 40 mg Physical Exam - Head Exam Head Exam: ATRAUMATIC, NORMOCEPHALIC - Eye Exam Eye Exam: EOMI, Normal appearance, PERRL - ENT Exam ENT Exam: Mucous Membranes Moist Additional comments: NG tube draining dark serosanguinous fluid - Respiratory Exam Respiratory Exam: Rales, NORMAL BREATHING PATTERN - Cardiovascular Exam Cardiovascular Exam: Tachycardia, REGULAR RHYTHM, +S1, +S2 - GI/Abdominal Exam GI & Abdominal Exam: Distended, Hernia, Hypoactive Bowel Sounds - Extremities Exam Extremities exam: Positive for: normal capillary refill, pedal pulses present Additional comments: chronic venous stasis changes - Skin Skin Exam: Dry, Intact, Warm Results - Vital Signs Recent Vital Signs: Last Vital Signs Temp 97 F L 02/17/18 00:00 Pulse 130 H 02/17/18 13:31 Resp 21 02/17/18 13:31 BP 62/30 L 02/17/18 13:31 Pulse Ox 65 L 02/17/18 13:31 - Labs Result Diagrams: 02/17/18 09:45 02/17/18 09:45 Labs: Laboratory Results - last 24 hr 02/16/18 02/16/18 02/17/18 16:37 21:23 07:24 WBC RBC Hgb Hct MCV MCH MCHC RDW Plt Count MPV Neut % (Auto) Lymph % (Auto) [place] % (Auto) Eos % (Auto) Baso % (Auto) Neut # (Auto) Lymph # (Auto) [place] # (Auto) Eos # (Auto) Baso # (Auto) PT INR APTT Sodium Potassium Chloride Carbon Dioxide Anion Gap BUN Creatinine Est GFR ( Amer) Est GFR (Non-Af Amer) POC Glucose (mg/dL) 158 H 161 H 169 H Random Glucose Calcium Phosphorus Magnesium Total Bilirubin AST ALT Alkaline Phosphatase Total Creatine Kinase C-Reactive Protein Total Protein Albumin Globulin Albumin/Globulin Ratio 02/17/18 02/17/18 02/17/18 08:55 09:33 09:45 WBC 8.9 RBC 3.84 L Hgb 9.8 L D Hct 33.0 L MCV 86.0 D MCH 25.4 L MCHC 29.6 L RDW 18.6 H Plt Count 221 D MPV 7.1 L Neut % (Auto) 68.2 Lymph % (Auto) 27.1 [place] % (Auto) 4.4 Eos % (Auto) 0.1 Baso % (Auto) 0.2 Neut # (Auto) 6.1 Lymph # (Auto) 2.4 [place] # (Auto) 0.4 Eos # (Auto) 0.0 Baso # (Auto) 0.0 PT INR APTT Sodium Potassium Chloride Carbon Dioxide Anion Gap BUN Creatinine Est GFR ( Amer) Est GFR (Non-Af Amer) POC Glucose (mg/dL) 171 H 197 H Random Glucose Calcium Phosphorus Magnesium Total Bilirubin AST ALT Alkaline Phosphatase Total Creatine Kinase C-Reactive Protein Total Protein Albumin Globulin Albumin/Globulin Ratio 02/17/18 02/17/18 09:45 09:45 WBC RBC Hgb Hct MCV MCH MCHC RDW Plt Count MPV Neut % (Auto) Lymph % (Auto) [place] % (Auto) Eos % (Auto) Baso % (Auto) Neut # (Auto) Lymph # (Auto) [place] # (Auto) Eos # (Auto) Baso # (Auto) PT 21.0 H INR 1.9 APTT 36 H Sodium 148 Potassium 3.1 L Chloride 108 H Carbon Dioxide 23 Anion Gap 20 BUN 14 Creatinine 1.2 Est GFR ( Amer) > 60 Est GFR (Non-Af Amer) 59 POC Glucose (mg/dL) Random Glucose 201 H Calcium 6.3 L Phosphorus 4.5 Magnesium 1.6 Total Bilirubin 0.4 AST 17 ALT 8 L D Alkaline Phosphatase 82 Total Creatine Kinase 20 L C-Reactive Protein 144.00 H Total Protein 4.7 L Albumin 2.0 L D Globulin 2.7 Albumin/Globulin Ratio 0.7 L Assessment & Plan - Assessment and Plan (Free Text) Assessment: Patient is a 77 year old male with past medical history dementia, bladder cancer, afib, GERD, diverticulitis, cervical cord compression/stenosis presenting from long term with emesis, found to have bowel obstruction, now s/p code blue and intubation. Plan: Neuro: - unresponsive Pulm: - s/p intubation Cardio: - maintain MAP >65 - dopamine discontinued - pressors: epinephrine, levophed GI: - NG tube draining dark brown serosanguinous fluid - further management per surgery team for bowel obstruction Heme: - monitor H/H Renal: - anuric - bladder scan showed 54 ccs Endo: - no acute issues ID: - afebrile, no leukocytosis - cultures negative Prophylaxis: protonix Access: R femoral TLC, peripheral IV, [place] Code status: DNR/DNI Case and plan was reviewed and discussed with Dr. Davis Johnson PGY-1 - Date & Time Date: 02/17/18 Time: 11:00 <Juan C Cannon - Last Filed: 02/17/18 18:51> Meds - Medications Medications: Current Medications Dextrose (Dextrose 50% Inj) 0 ml IV STAT PRN; Protocol PRN Reason: Hypoglycemia Protocol Last Admin: 02/17/18 18:00 Dose: 50 ml Dextrose (Glutose 15) 15 gm PO ONCE PRN; Protocol PRN Reason: Hypoglycemia Protocol Glucagon (Glucagen Diagnostic Kit) 1 mg IM STAT PRN; Protocol PRN Reason: Hypoglycemia Protocol Heparin Sodium (Porcine) (Heparin) 5,000 units SC Q8 [facility] Hydromorphone HCl (Dilaudid) 1 mg IVP ONCE PRN PRN Reason: Pain, severe (8-10) Sodium Bicarbonate 100 meq/ (Sodium Chloride) 1,100 mls @ 100 mls/hr IV .Q11H ONE Stop: 02/17/18 21:24 Last Admin: 02/17/18 11:45 Dose: 100 mls/hr Epinephrine HCl 1 mg/ Sodium (Chloride) 251 mls @ 15.06 mls/hr IV .[id number] PRN; Protocol PRN Reason: TITRATE PER MD ORDER Last Admin: 02/17/18 18:12 Dose: 10 mcg/min, 150.6 mls/hr Norepinephrine Bitartrate 4 mg (/ Sodium Chloride) 250 mls @ 15 mls/hr IV .[id number] PRN; Protocol PRN Reason: TITRATE PER MD ORDER Last Admin: 02/17/18 16:04 Dose: 4 mcg/min, 15 mls/hr Insulin Aspart (Novolog) 0 unit SC ACHS [facility]; Protocol Last Admin: 02/17/18 18:13 Dose: Not Given Lactulose (Enulose) 20 gm PO DAILY [facility] Last Admin: 02/17/18 11:50 Dose: Not Given Metoclopramide HCl (Reglan) 10 mg IVP DAILY@ONCE PRN PRN Reason: Nausea/Vomiting Ondansetron HCl (Zofran Inj) 4 mg IVP DAILY@ONCE PRN PRN Reason: Nausea/Vomiting Last Admin: 02/11/18 04:24 Dose: 4 mg Pantoprazole Sodium (Protonix Inj) 40 mg IVP DAILY [facility] Last Admin: 02/17/18 18:14 Dose: 40 mg Results - Vital Signs Recent Vital Signs: Last Vital Signs Temp 98.4 F 02/17/18 12:00 Pulse 128 H 02/17/18 14:36 Resp 21 02/17/18 14:36 BP 71/13 L 02/17/18 16:04 Pulse Ox 77 L 02/17/18 14:30 - Labs Result Diagrams: 02/17/18 09:45 02/17/18 09:45 Labs: Laboratory Results - last 24 hr 02/16/18 02/17/18 02/17/18 21:23 07:24 08:55 WBC RBC Hgb Hct MCV MCH MCHC RDW Plt Count MPV Neut % (Auto) Lymph % (Auto) [place] % (Auto) Eos % (Auto) Baso % (Auto) Neut # (Auto) Lymph # (Auto) [place] # (Auto) Eos # (Auto) Baso # (Auto) PT INR APTT Sodium Potassium Chloride Carbon Dioxide Anion Gap BUN Creatinine Est GFR ( Amer) Est GFR (Non-Af Amer) POC Glucose (mg/dL) 161 H 169 H 171 H Random Glucose Calcium Phosphorus Magnesium Total Bilirubin AST ALT Alkaline Phosphatase Total Creatine Kinase C-Reactive Protein Total Protein Albumin Globulin Albumin/Globulin Ratio Procalcitonin Blood Type Antibody Screen 02/17/18 02/17/18 02/17/18 09:33 09:45 09:45 WBC 8.9 RBC 3.84 L Hgb 9.8 L D Hct 33.0 L MCV 86.0 D MCH 25.4 L MCHC 29.6 L RDW 18.6 H Plt Count 221 D MPV 7.1 L Neut % (Auto) 68.2 Lymph % (Auto) 27.1 [place] % (Auto) 4.4 Eos % (Auto) 0.1 Baso % (Auto) 0.2 Neut # (Auto) 6.1 Lymph # (Auto) 2.4 [place] # (Auto) 0.4 Eos # (Auto) 0.0 Baso # (Auto) 0.0 PT 21.0 H INR 1.9 APTT 36 H Sodium Potassium Chloride Carbon Dioxide Anion Gap BUN Creatinine Est GFR ( Amer) Est GFR (Non-Af Amer) POC Glucose (mg/dL) 197 H Random Glucose Calcium Phosphorus Magnesium Total Bilirubin AST ALT Alkaline Phosphatase Total Creatine Kinase C-Reactive Protein Total Protein Albumin Globulin Albumin/Globulin Ratio Procalcitonin Blood Type Antibody Screen 02/17/18 02/17/18 02/17/18 09:45 09:45 11:56 WBC RBC Hgb Hct MCV MCH MCHC RDW Plt Count MPV Neut % (Auto) Lymph % (Auto) [place] % (Auto) Eos % (Auto) Baso % (Auto) Neut # (Auto) Lymph # (Auto) [place] # (Auto) Eos # (Auto) Baso # (Auto) PT INR APTT Sodium 148 Potassium 3.1 L Chloride 108 H Carbon Dioxide 23 Anion Gap 20 BUN 14 Creatinine 1.2 Est GFR ( Amer) > 60 Est GFR (Non-Af Amer) 59 POC Glucose (mg/dL) 132 H Random Glucose 201 H Calcium 6.3 L Phosphorus 4.5 Magnesium 1.6 Total Bilirubin 0.4 AST 17 ALT 8 L D Alkaline Phosphatase 82 Total Creatine Kinase 20 L C-Reactive Protein 144.00 H Total Protein 4.7 L Albumin 2.0 L D Globulin 2.7 Albumin/Globulin Ratio 0.7 L Procalcitonin 0.32 Blood Type Antibody Screen 02/17/18 02/17/18 02/17/18 14:50 17:49 17:50 WBC RBC Hgb Hct MCV MCH MCHC RDW Plt Count MPV Neut % (Auto) Lymph % (Auto) [place] % (Auto) Eos % (Auto) Baso % (Auto) Neut # (Auto) Lymph # (Auto) [place] # (Auto) Eos # (Auto) Baso # (Auto) PT INR APTT Sodium Potassium Chloride Carbon Dioxide Anion Gap BUN Creatinine Est GFR ( Amer) Est GFR (Non-Af Amer) POC Glucose (mg/dL) < 20 L* 27 L* Random Glucose Calcium Phosphorus Magnesium Total Bilirubin AST ALT Alkaline Phosphatase Total Creatine Kinase C-Reactive Protein Total Protein Albumin Globulin Albumin/Globulin Ratio Procalcitonin Blood Type O POSITIVE Antibody Screen Negative Attending/Attestation - Attestation I have personally seen and examined this patient.: Yes I have fully participated in the care of the patient.: Yes I have reviewed all pertinent clinical information: Yes Notes (Text): 02/17/18 18:51 patient seen and examined Critical care time 60 minutes Patient was found apneic this morning and corey browning was called at 8:45 AM. ACLS protocol was initiated, patient was intubated. Patient was noted to have a tonic seizure. Patient was then transferred to ICU. After arriving in ICU, patient was noted pulseless at 9:23 AM, corey browning was called with ROSC at 09:30 AM. Patient was found pulseless again at 10:17, corey browning was called with ROSC at 10:22. Patient was started on dopamine and bicarb drip. Patient is DNR/DNI
--- NOTE | 2018-02-17 16:57 | CP.PCM.PN ---
Subjective - Date & Time of Evaluation Date of Evaluation: 02/17/18 Time of Evaluation: 16:54 - Subjective Subjective: Surgery PT seen and examined. NGT was pulled. likely aspirated. pt coded this AM x2. Intubated. OG tube in place. Has bloody output. Objective - Vital Signs/Intake and Output Vital Signs (last 24 hours): Temp Pulse Resp BP Pulse Ox 98.4 F 128 H 21 71/13 L 77 L 02/17/18 12:00 02/17/18 14:36 02/17/18 14:36 02/17/18 16:04 02/17/18 14:30 Intake and Output: 02/17/18 02/17/18 06:59 18:59 Intake Total 1200 2990 Output Total 500 Balance 700 2990 - Medications Medications: Current Medications Dextrose (Dextrose 50% Inj) 0 ml IV STAT PRN; Protocol PRN Reason: Hypoglycemia Protocol Dextrose (Glutose 15) 15 gm PO ONCE PRN; Protocol PRN Reason: Hypoglycemia Protocol Glucagon (Glucagen Diagnostic Kit) 1 mg IM STAT PRN; Protocol PRN Reason: Hypoglycemia Protocol Heparin Sodium (Porcine) (Heparin) 5,000 units SC Q8 [facility] Hydromorphone HCl (Dilaudid) 1 mg IVP ONCE PRN PRN Reason: Pain, severe (8-10) Sodium Bicarbonate 100 meq/ (Sodium Chloride) 1,100 mls @ 100 mls/hr IV .Q11H ONE Stop: 02/17/18 21:24 Last Admin: 02/17/18 11:45 Dose: 100 mls/hr Epinephrine HCl 1 mg/ Sodium (Chloride) 251 mls @ 15.06 mls/hr IV .[id number] PRN; Protocol PRN Reason: TITRATE PER MD ORDER Last Admin: 02/17/18 16:04 Dose: 10 mcg/min, 150.6 mls/hr Norepinephrine Bitartrate 4 mg (/ Sodium Chloride) 250 mls @ 15 mls/hr IV .[id number] PRN; Protocol PRN Reason: TITRATE PER MD ORDER Last Admin: 02/17/18 16:04 Dose: 4 mcg/min, 15 mls/hr Insulin Aspart (Novolog) 0 unit SC ACHS [facility]; Protocol Last Admin: 02/17/18 11:59 Dose: Not Given Lactulose (Enulose) 20 gm PO DAILY [facility] Last Admin: 02/17/18 11:50 Dose: Not Given Metoclopramide HCl (Reglan) 10 mg IVP DAILY@ONCE PRN PRN Reason: Nausea/Vomiting Ondansetron HCl (Zofran Inj) 4 mg IVP DAILY@ONCE PRN PRN Reason: Nausea/Vomiting Last Admin: 02/11/18 04:24 Dose: 4 mg Pantoprazole Sodium (Protonix Inj) 40 mg IVP DAILY [facility] Last Admin: 02/16/18 09:45 Dose: 40 mg - Labs Labs: 02/17/18 09:45 02/17/18 09:45 PT 21.0 SECONDS (9.7-12.2) H 02/17/18 09:45 INR 1.9 02/17/18 09:45 APTT 36 SECONDS (21-34) H 02/17/18 09:45 - Constitutional Appears: In Acute Distress - Head Exam Head Exam: ATRAUMATIC, NORMAL INSPECTION, NORMOCEPHALIC - ENT Exam ENT Exam: Mucous Membranes Moist - Respiratory Exam Respiratory Exam: Respiratory Distress - Cardiovascular Exam Cardiovascular Exam: Tachycardia, +S1, +S2. absent: Murmur - GI/Abdominal Exam GI & Abdominal Exam: Distended, Soft, Normal Bowel Sounds. absent: Firm, Rigid, Tenderness - Neurological Exam Neurological Exam: absent: Awake - Skin Skin Exam: Dry, Intact Assessment and Plan - Assessment and Plan (Free Text) Assessment: Ileus v pSBO: bowel function -ICU management -No surgical intervention at this time. DIOMEDES Lopez
--- NOTE | 2018-02-17 17:47 | CP.PCM.PN ---
Subjective - Date & Time of Evaluation Date of Evaluation: 02/17/18 Time of Evaluation: 17:43 - Subjective Subjective: Patient is seen and examined Events noted S/P multiple cardiac arrest secondary to aspiration Currently on Max of Levophed and Epi at 10 mcg/min Bloody NGT drainage Low BP Patient is made DNR and non agressive measures are requested by family Objective - Vital Signs/Intake and Output Vital Signs (last 24 hours): Temp Pulse Resp BP Pulse Ox 98.4 F 128 H 21 71/13 L 77 L 02/17/18 12:00 02/17/18 14:36 02/17/18 14:36 02/17/18 16:04 02/17/18 14:30 Intake and Output: 02/17/18 02/17/18 06:59 18:59 Intake Total 1200 2990 Output Total 500 Balance 700 2990 - Medications Medications: Current Medications Dextrose (Dextrose 50% Inj) 0 ml IV STAT PRN; Protocol PRN Reason: Hypoglycemia Protocol Dextrose (Glutose 15) 15 gm PO ONCE PRN; Protocol PRN Reason: Hypoglycemia Protocol Glucagon (Glucagen Diagnostic Kit) 1 mg IM STAT PRN; Protocol PRN Reason: Hypoglycemia Protocol Heparin Sodium (Porcine) (Heparin) 5,000 units SC Q8 JOJO Hydromorphone HCl (Dilaudid) 1 mg IVP ONCE PRN PRN Reason: Pain, severe (8-10) Sodium Bicarbonate 100 meq/ (Sodium Chloride) 1,100 mls @ 100 mls/hr IV .Q11H ONE Stop: 02/17/18 21:24 Last Admin: 02/17/18 11:45 Dose: 100 mls/hr Epinephrine HCl 1 mg/ Sodium (Chloride) 251 mls @ 15.06 mls/hr IV .[id number] PRN; Protocol PRN Reason: TITRATE PER MD ORDER Last Admin: 02/17/18 16:04 Dose: 10 mcg/min, 150.6 mls/hr Norepinephrine Bitartrate 4 mg (/ Sodium Chloride) 250 mls @ 15 mls/hr IV .[id number] PRN; Protocol PRN Reason: TITRATE PER MD ORDER Last Admin: 02/17/18 16:04 Dose: 4 mcg/min, 15 mls/hr Insulin Aspart (Novolog) 0 unit SC ACHS JOJO; Protocol Last Admin: 02/17/18 11:59 Dose: Not Given Lactulose (Enulose) 20 gm PO DAILY [facility] Last Admin: 02/17/18 11:50 Dose: Not Given Metoclopramide HCl (Reglan) 10 mg IVP DAILY@ONCE PRN PRN Reason: Nausea/Vomiting Ondansetron HCl (Zofran Inj) 4 mg IVP DAILY@ONCE PRN PRN Reason: Nausea/Vomiting Last Admin: 02/11/18 04:24 Dose: 4 mg Pantoprazole Sodium (Protonix Inj) 40 mg IVP DAILY [facility] Last Admin: 02/16/18 09:45 Dose: 40 mg - Labs Labs: 02/17/18 09:45 02/17/18 09:45 PT 21.0 SECONDS (9.7-12.2) H 02/17/18 09:45 INR 1.9 02/17/18 09:45 APTT 36 SECONDS (21-34) H 02/17/18 09:45 - Head Exam Head Exam: NORMAL INSPECTION - Eye Exam Eye Exam: Normal appearance - ENT Exam ENT Exam: Mucous Membranes Dry - Respiratory Exam Respiratory Exam: Rales, Rhonchi - Cardiovascular Exam Cardiovascular Exam: Tachycardia, REGULAR RHYTHM, +S1, +S2 - GI/Abdominal Exam GI & Abdominal Exam: Soft - Extremities Exam Extremities Exam: Pedal Edema - Skin Skin Exam: Dry Assessment and Plan (1) Bowel obstruction Status: Acute (2) Vomiting Status: Acute (3) COPD (chronic obstructive pulmonary disease) Status: Acute (4) Cardiac arrest Status: Acute (5) Acute respiratory failure with hypoxemia Status: Acute (6) Pneumonia Status: Acute - Assessment and Plan (Free Text) Plan: Continue current care including pressors and vent support Very poor prognosis Family requesting non agressive measures
--- NOTE | 2018-02-17 18:52 | PCM.PROC ---
Procedures Attestation:: I certify that I have explained the specified Operation(s) or Procedure(s), risks, benefits and reasonable alternatives to the Patient and/or other person responsible. The opportunity was given to ask questions and all questions answered - Intubation Time Out Performed: No Sedative: None Laryngoscope: Oscar ET Tube Size: 8.0 ET Tube Uncuffed: No ET Tube Secured at Depth: 22 ET Tube Secured Locarion: Lips ET Tube Placement Confirmation: Visualized Passing Through Cords, Breath Sounds Equal Bilaterally, No Breath Sounds Over Epigastrum, Confirmation w/Capnometry Patient Tolerated Procedure: Well Procedure Immediate Complications: None
--- NOTE | 2018-02-17 18:54 | PCM.PROC ---
Procedures Attestation:: I certify that I have explained the specified Operation(s) or Procedure(s), risks, benefits and reasonable alternatives to the Patient and/or other person responsible. The opportunity was given to ask questions and all questions answered - Central Line Placement Right Femoral Triple Lumen Catheter Aseptic technique was employed throughout the procedure: Hand Hygiene done prior to procedure, Full sterile barriers (mask, hair cover, sterile gown, sterile gloves), Full body sterile drape, Chloraprep Antiseptic: 2 minute prep for Femoral CVP Time Out Performed: No Pt. Placed on Pulse Ox Monitor: No Central Line Prep: Chlorhexidine-Alcohol Combination Amount of Anesthesia Used (mls): 0 Ultrasound Used for Placement: No Central Line Lumen Inserted: triple Central Line Length: 16 cm Post Procedure: Sutured in Place, Good Blood Return, All Ports Aspirated, Flush ed, Capped, Sterile Dressing Applied Secured by: Suture Post procedure dressing: Chlorhexidine disc (Biopatch) Post Procedure X-Ray: No Patient Tolerated Procedure: Well
[2018-02-17 21:18] VITALS: TEMP 97.5; O2SAT 68
[2018-02-17] MEDS ORDERED: EPINEPHrine- 4 MG in Sodium Chloride 0.9% 1,000 ML IV PRN (22:00)
[2018-02-18] MEDS ORDERED: (Novolog) Insulin Aspart, Recombinant 100 u/ml 10 ml vial SC SCH
[2018-02-18 01:02] VITALS: BP 93/30; PULSE 102; RESP 38
[2018-02-18] MEDS ORDERED: DOPamine 400mg/250ml D5W 400 MG/250 ML BAG IV PRN (18:00)
== END 2018-02-17 23:00 | DRG 388 ==
LOC: C.ER 23:00 → C.3T 02-07 01:11 → C.9I 02-17 09:01
PROVIDERS: ADMIT Internal Medicine Critical Care Medicine; ATTEND Internal Medicine Critical Care Medicine
PROC: 0BH17EZ Insertion of Endotracheal Airway into Trachea, Via Natural or Artificial Opening (ICD-10-PCS; principal; 2018-02-10)
PROC: 5A1935Z Respiratory Ventilation, Less than 24 Consecutive Hours (ICD-10-PCS; 2018-02-10)
DX: K56.600 Partial intestinal obstruction, unspecified as to cause (principal); J96.01 Acute respiratory failure with hypoxia; J18.9 Pneumonia, unspecified organism; J44.0 Chronic obstructive pulmonary disease with (acute) lower respiratory infection; I50.9 Heart failure, unspecified; N40.0 Benign prostatic hyperplasia without lower urinary tract symptoms; R56.9 Unspecified convulsions; Z66 Do not resuscitate; I48.91 Unspecified atrial fibrillation; I46.9 Cardiac arrest, cause unspecified; I11.0 Hypertensive heart disease with heart failure; I25.10 Atherosclerotic heart disease of native coronary artery without angina pectoris; F03.90 Unspecified dementia, unspecified severity, without behavioral disturbance, psychotic disturbance, mood disturbance, and anxiety; Z87.891 Personal history of nicotine dependence; N28.1 Cyst of kidney, acquired; Z85.51 Personal history of malignant neoplasm of bladder